=== PATIENT | male | born 1945 | race American Indian/Alaskan Native ===

== ENCOUNTER 2019-07-14 10:53 | Emergency (ER) | payer MEDICARE, OTHER ==
[~2019-07-14] VITALS: Ht 170.2 cm; Wt 158.8 kg
--- OUTSIDE RECORDS SUMMARY | ~2019-07-14 | XMS | Encounter Summary ---
Demographics + + + | Address | [address] | | | [place] [address] | + + + | Home Phone | | + + + | Preferred Language | Unknown | + + + | Marital Status | | + + + | Sabianist Affiliation | 1041 | + + + | Race | Unknown | + + + | Ethnic Group | Unknown | + + + Author + + + | Author | [facility] | | | and [place] | + + + | Organization | [facility] | | | and [place] | + + + | Address | Unknown | + + + | Phone | Unavailable | + + + Support + + + + + | Name | Relationship | Address | Phone | + + + + + | Lula Kerr | ECON | [address] | | | | | [place] | | | | | [address] | | + + + + + Care Team Providers + +------+ + | Care Photography Sales Associate Name | Role | Phone | + +------+ + | Gregory Drummond MD | PCP | | + +------+ + Encounter Details +--------+ + + + + | Date | Type | Department | Care Team | Description | +--------+ + + + + | 01/17/ | Abstract | [facility] | Provider, | Arteriosclerotic | | 2019 | | SURGERY [address] | [address] | cardiovascular | | | | [place], [place] | [address] | disease; Dialysis | | | | [address] | [place] [address] | patient (HCC); | | | | [phone] | | Pulmonary | | | | | | hypertension (HCC); | | | | | | Sleep apnea, | | | | | | unspecified type; | | | | | | Left arm pain; | | | | | | Hyperlipidemia, | | | | | | unspecified | | | | | | hyperlipidemia type; | | | | | | Venous | | | | | | insufficiency | +--------+ + + + + Social History + + + +--------+ + | Tobacco Use | Types | Packs/Day | Years | Date | | | | | Used | | + + + +--------+ + | Former Smoker | Cigarettes | 1 | 30 | Quit: 07/25/2001 | + + + +--------+ + + +------+---+---+ | Smokeless Tobacco: | Chew | | | | Current User | | | | + +------+---+---+ + + | Comments: every once in a while | + + + + +---------+ + | Alcohol Use | Drinks/Week | oz/Week | Comments | + + +---------+ + | Yes | | | 1-2 beers in the | | | | | summer | + + +---------+ + + + + | Sex Assigned at | Date Recorded | | | | + + + | Not on file | | + + + + + + + | Job Start Date | Occupation | Industry | + + + + | Not on file | Not on file | Not on file | + + + + + + + + | Travel History | Travel Start | Travel End | + + + + + + | No recent travel history available. | + + documented as of this encounter Progress Notes Sue Bowers, Field Service Technician Poultry - 08/10/2018 2:17 PM PSTCT Abdomen without on 2017 at [facility] Impressions: 1. Hepatomegaly. 2. Cholelithiasis. 3. Ascites and extensive subcutaneous edema. 4. Right adrenal nodule which is slightly smaller than previously. 5. Renal atrophy. 6. Atherosclerosis. 7. Cardiomegaly. 8. Fat containing midline abdominal hernia. Electronically signed by Mohsen Guerra documented in this encounter Plan of Treatment +--------+ + + + + | Date | Type | Specialty | Care Team | Description | +--------+ + + + + | 07/16/ | Off-Site | Nephrology | Maty Tian | | | 2018 | Visit | | DO Rolan [address] [place] [address] | | | | | | [address] | | | | | | [place] | | | | | | [phone] | | | | | | | | +--------+ + + + + | 09/25/ | Office | Cardiology | Sheldon Spence | | | 2019 | Visit | | [address] | | | | | | [facility] | | | | | | [place] | | | | | | [phone] | | | | | | | | +--------+ + + + + | 09/25/ | Procedure | Cardiology | | | | 2019 | visit | | | | +--------+ + + + + | 11/28/ | Office | Cardiology | Natalie Luo DO | | | 2019 | Visit | | [address] | | | | | | [place], [place] | | | | | | [address] | | | | | | | | +--------+ + + + + documented as of this encounter Visit Diagnoses + + | Diagnosis | + + | Arteriosclerotic cardiovascular disease Unspecified cardiovascular disease | + + | Dialysis patient (HCC) Renal dialysis status | + + | Pulmonary hypertension (HCC) Other chronic pulmonary heart diseases | + + | Sleep apnea, unspecified type | + + | Left arm pain Pain in limb | + + | Hyperlipidemia, unspecified hyperlipidemia type | + + | Venous insufficiency Unspecified venous (peripheral) insufficiency | + + documented in this encounter"
--- OUTSIDE RECORDS SUMMARY | ~2019-07-14 | XMS | Encounter Summary ---
Demographics + + + | Address | [address] | | | [place] [address] | + + + | Home Phone | | + + + | Preferred Language | Unknown | + + + | Marital Status | | + + + | Alevism Affiliation | 1041 | + + + | Race | Unknown | + + + | Ethnic Group | Unknown | + + + Author + + + | Author | [facility] | | | and [place] | + + + | Organization | [facility] | | | and [place] | + + + | Address | Unknown | + + + | Phone | Unavailable | + + + Support + + + + + | Name | Relationship | Address | Phone | + + + + + | Lula Kerr | ECON | [address] | | | | | [place] | | | | | [address] | | + + + + + Care Team Providers + +------+ + | Care Sheet Metal Journeyman Name | Role | Phone | + +------+ + | Gregory Drummond MD | PCP | | + +------+ + Encounter Details +--------+ + + + + | Date | Type | Department | Care Team | Description | +--------+ + + + + | 07/09/ | Abstract | [facility] | Maty Tian | | | 2018 | | NEPHROLOGY [address] | M, DO [address] | | | | | [address] | [address] | | | | | [place], [place] | [place], [place] | | | | | [address] | [address] | | | | | [phone] | | | +--------+ + + + + Social History + + + +--------+ + | Tobacco Use | Types | Packs/Day | Years | Date | | | | | Used | | + + + +--------+ + | Former Smoker | Cigarettes | 1 | 30 | Quit: 08/26/2001 | + + + +--------+ + + +------+---+ + | Smokeless Tobacco: | Chew | | Quit: | | Former User | | | 07/13/20 | | | | | 18 | + +------+---+ + + + | Comments: every once in a while | + + + + +---------+ + | Alcohol Use | Drinks/Week | oz/Week | Comments | + + +---------+ + | Yes | | | Alcoholic | | | | | Drinks/day: 1-2 | | | | | beers in the summer, | | | | | socially. | + + +---------+ + + + [...] + + documented as of this encounter Plan of Treatment +--------+ + + + + | Date | Type | Specialty | Care Team | Description | +--------+ + + + + | 07/16/ | Off-Site | Nephrology | Maty Tian | | | 2018 | Visit | | DO [address] | | | | | | [address] | | | | | | [place] | | | | | | [address] | | | | | | | | +--------+ + + + + | 09/25/ | Office | Cardiology | Sheldon Spence | | | 2019 | Visit | | [address] | | | | | | [address] | | | | | | [place] | | | | | | [address] | | | | | | | | +--------+ + + + + | 09/25/ | Procedure | Cardiology | | | | 2019 | visit | | | | +--------+ + + + + | 11/28/ | Office | Cardiology | Natalie Luo DO | | | 2019 | Visit | | [address] | | | | | | [place] | | | | | | [address] | | | | | | | | +--------+ + + + + documented as of this encounter Visit Diagnoses Not on filedocumented in this encounter Additional Health Concerns + + + + | Infection | Noted Time | Resolved Time | + + + + | Methicillin-resistant Staphylococcus aureus | 10/30/2018 9:33 AM | | | | PDT | | + + + + documented as of this encounter"
--- OUTSIDE RECORDS SUMMARY | ~2019-07-14 | XMS | Encounter Summary ---
Demographics + + + | Address | [address] | | | [place] [address] | + + + | Home Phone | | + + + | Preferred Language | Unknown | + + + | Marital Status | | + + + | Pentecostal Affiliation | 1041 | + + + | Race | Unknown | + + + | Ethnic Group | Unknown | + + + Author + + + | Author | [facility] | | | and [place] | + + + | Organization | [facility] | | | and [place] | + + + | Address | Unknown | + + + | Phone | Unavailable | + + + Support + + + + + | Name | Relationship | Address | Phone | + + + + + | Lula Kerr | ECON | [address] | | | | | [place] | | | | | [address] | | + + + + + Care Team Providers + +------+ + | Care Photographic Printer Name | Role | Phone | + +------+ + | Gregory Drummond MD | PCP | | + +------+ + Reason for Visit Auth/Cert +--------+--------+ + + + + | Status | Reason | Specialty | Diagnoses / | Referred By | Referred To | | | | | Procedures | Contact | Contact | +--------+--------+ + + + + | | | | Diagnoses | | | | | | | Hypoxemia | | | | | | | Hyponatremia | | | | | | | Pneumonia | | | | | | | of right | | | | | | | lower lobe | | | | | | | due to | | | | | | | infectious | | | | | | | organism | | | | | | | (HCC) Acute | | | | | | | renal | | | | | | | failure with | | | | | | | acute | | | | | | | tubular | | | | | | | necrosis | | | | | | | superimposed | | | | | | | on chronic | | | | | | | kidney | | | | | | | disease, | | | | | | | unspecified | | | | | | | CKD stage | | | | | | | (HCC) | | | | | | | | | | +--------+--------+ + + + + Encounter Details +--------+ + + + + | Date | Type | Department | Care Team | Description | +--------+ + + + + | 07/03/ | Anesthesia | [facility] | Moe Ling | | | 2018 | Event | [facility] | Mynor DIETZ MD [address] | | | | | [address] | [address] [place] | | | | | [place], [place] | [place] [address] | | | | | [address] | | | | | | | | | | | | | Keith Holloway | | | | | | Emanuel, DO [address] | | | | | | [address] [place] | | | | | | [place] [address] | | | | | | | | | | | | | | +--------+ + + + + Anesthesia Record + + + + + | Procedure Name | Responsible | Anesthesia Start | Anesthesia Stop Time | | | Anesthesiologist | Time | | + + + + + | INSERTION SHUNT | Moe Ling | 07/03/18 1502 | 07/03/18 1626 | | HEMODIALYSIS W/ | MD MIRELA | | | | PERMACATH (Right | | | | | Chest) | | | | + + + + + +----+---+ + + | Da | T | Event | Comment | | te | i | | | | | m | | | | | e | | | +----+---+ + + | 12 | 1 | An Checkout | Pre-use anesthesia machine/equipment checkout. | | /1 | 4 | | | | 0/ | 4 | | | | 20 | 1 | | | | 18 | | | | +----+---+ + + | | 1 | | | | | 4 | | | | | 4 | | | | | 6 | | | +----+---+ + + | | 1 | An Start | Reassessment prior to anesthesia induction/procedure. | | | 5 | | | | | 0 | | | | | 2 | | | +----+---+ + + | | 1 | Antibiotic | | | | 5 | Given | | | | 0 | | | | | 3 | | | +----+---+ + + | | 1 | An Start | | | | 5 | Data | | | | 0 | | | | | 4 | | | +----+---+ + + | | 1 | Preoxygenat | | | | 5 | ed | | | | 0 | | | | | 7 | | | +----+---+ + + | | 1 | An | | | | 5 | Induction | | | | 0 | | | | | 8 | | | +----+---+ + + | | 1 | An | | | | 5 | Intubation | | | | 0 | | | | | 9 | | | +----+---+ + + | | 1 | [place] | | | | 5 | 43-degrees | | | | 3 | | | | | 2 | | | +----+---+ + + | | 1 | Pre-Procedu | | | | 5 | ral Timeout | | | | 4 | Completed | | | | 6 | | | +----+---+ + + | | 1 | First | | | | 5 | Inc/Proc St | | | | 4 | | | | | 8 | | | +----+---+ + + | | 1 | [place] off | | | | 6 | | | | | 1 | | | | | 5 | | | +----+---+ + + | | 1 | AN No | TOF 4/4 with sustained tetanus. | | | 6 | Residual | | | | 1 | NMB | | | | 5 | | | +----+---+ + + | | 1 | an stop | | | | 6 | data | | | | 2 | | | | | 0 | | | +----+---+ + + | | 1 | Extubated | | | | 6 | Awake | | | | 2 | | | | | 0 | | | +----+---+ + + | | 1 | An Stop | Patient handed off to recovery nurse. | | | 2 | | | | | 6 | | | +----+---+ + + +------+ | Meds | +------+ + + + | Name | Total | + + + | propofol (DIPRIVAN) injection | 140 mg | | (bolus) (20 mL) | | + + + | propofol | 190.68 mg | + + + | lidocaine 2% | 40 mg | + + + | ceFAZolin (ANCEF, KEFZOL) 100 | 2 g | | mg/mL IV syringe 2 g | | + + + | sodium chloride 0.9% (NS) | 100 mL | | infusion | | + + + + + | Name | + + | N2O Flow Rate (L/Min) | + + | O2 Flow Rate (L/Min) | + + | Insp O2 | + + | Exp SEV | + + | Air Flow Rate (L/Min) | + + + + | No blood administrations on file. | + + +--------+ + + + | Type | Details | Placement | Removal | +--------+ + + + | Pacema | 06/26/18; AICD; capturing | 06/26/18 0000 by | | | ker | | Felicita Sanchez RN | | +--------+ + + + | Hemodi | 07/03/18; 1601; Yes; | 07/03/18 1601 by | | | alysis | Chlorhexidine/Isopropyl Alcohol; | Hortensia Centeno RN | | | | Yes; All; OR; Observer; | | | | Orquidea | Rodrigo; Attending physician; New | | | | er | indication for central line | | | | | (e.g., hemodynamic monitoring, | | | | | fluid/medication administration, | | | | | etc.); internal jugular vein, | | | | | right; 23 cm, other (see | | | | | comments) (16 FR); other (see | | | | | comments) (Patient under general | | | | | anesthesia) | | | +--------+ + + + | Read | 09/16/14; 1030; Left:; eye; | 09/16/14 1030 by | 09/05/181925 by | | only - | 09/05/18; 1925 | Goldie Manley, | Lyn Villanueva RN | | | | RN | | | Incisi | | | | | on | | | | +--------+ + + + | Read | 10/14/14; 923; Right:; eye; | 10/14/14 09 by | 09/05/181925 by | | only - | 09/05/18; 1925 | Holly Worthy RN | Lyn Villanueva RN | | | | | | | Incisi | | | | | on | | | | +--------+ + + + | Urethr | 06/26/18; 1400; indicated for | 06/26/18 1400 by | 07/04/18 1552 by | | al | critically ill with need for | Felicita Sanchez RN | Luis Alfredo Pelaez RN | | Cathet | accurate I/O; All elements; All | | | | er | elements; All elements; 16; 10; | | | | | 07/04/18; 1552 | | | +--------+ + + + | Rash | 06/26/18; 1400; Left; lower; leg; | 06/26/18 1400 by | 07/08/18 1515 by | | | healing within expectations; | Felicita Sanchez RN | Shweta Gilmore RN | | | 07/08/18; 1515 | | | +--------+ + + + | PICC | 06/26/18; 1630; Red Hub; White | 06/26/18 1630 by | 07/08/18 1455 by | | Triple | Hub; Johnson Hub; Yes; | Brandi Centeno RN | Shweta Gilmore RN | | Lumen | Chlorhexidine/Isopropyl Alcohol; | | | | | Yes; Yes; All; Patient room; | | | | | Glass Blower Helper; Arielle Centeno; Registered | | | | | nurse; Yes; New indication for | | | | | central line (e.g., hemodynamic | | | | | monitoring, fluid/medication | | | | | administration, etc.); brachial, | | | | | right; pressure injectable | | | | | catheter, lot number (specify) | | | | | (RxRevu [id number]); 5 Fr, length | | | | | (specify) (Trimmed to 47 cm); 0; | | | | | intradermal injection, tolerated | | | | | well; ultrasound visualization | | | | | with modified seldinger technique | | | | | at bedside; placement verified | | | | | by x-ray; no longer indicated, | | | | | catheter/device intact; healing | | | | | within expectations; 07/08/18; | | | | | 1455 | | | +--------+ + + + | Wound | 07/02/18; 0600; Bilateral; | 07/02/18 0600 by | 07/08/18 1515 by | | | posterior; gluteal; abrasion; | Ric Farfan RN | Shweta Gilmore RN | | | bleeding.; 07/08/18; 1515 | | | +--------+ + + + | Airway | Placement Date: 07/03/18; | 07/03/18 1509 by | 07/03/18 1620 by | | | Placement Time: 1509 (created via | Moe Ling | Moe Ling | | | procedure documentation); Mask | MD MIRELA | MD MIRELA | | | Ventilation: EZ; Attempts: 1; | | | | | Airway Type: laryngeal mask; | | | | | Size: 5; Trauma: none; Placement | | | | | Check: exhaled CO2 detection | | | | | device, bilateral chest rise, | | | | | breath sounds equal bilaterally; | | | | | Removal Date: 07/03/18; Removal | | | | | Time: 1620 | | | +--------+ + + + | Read | 07/03/18; 1556; Right; neck; | 07/03/18 1556 by | 07/08/18 1515 by | | only - | healing within expectations; | Hortensia Centeno RN | Shweta Gilmore RN | | | 07/08/18; 1515 | | | | Incisi | | | | | on | | | | +--------+ + + + documented in this encounter Social History + + + +--------+ + [...] | Visit | | DO [address] | | | | | | [address] | | | | | | [place] | | | | | | [address] | | | | | | | | +--------+ + + + + | 09/25/ | Office | Cardiology | Sheldon Spence | | | 2019 | Visit | | [address] | | | | | | [address] | | | | | | [place] | | | | | | [address] | | | | | | | [...] [place] | | | | | | [address] | | | | | | | | +--------+ + + + + documented as of this encounter Procedures + +--------+ + + + | Procedure Name | Priori | Date/Time | Associated Diagnosis | Comments | | | ty | | | | + +--------+ + + + | ANE AIRWAY NOTE | Routin | 07/03/2018 | | Results for this | | | e | 3:26 PM | | procedure are in the | | | | PST | | results section. | + +--------+ + + + documented in this encounter Results Anesthesia Airway Note (07/03/2018 3:26 PM PST) + + + | Narrative | Performed At | + + + | Moe Ling II, MD 07/03/2018 15:26 Anesthesia Airway | | | Placement 07/03/2018 15:09 Preprocedure check: patient | | | identified, oxygen, airway assessed, patient reassessment prior to | | | induction, airway equipment checked and suction Rapid Sequence | | | Induction: no Mask ventilation: easy Attempts: 1 Airway type: | | | laryngeal mask Size: 5 Cuffed: cuffed Route, reference point: | | | center of mouth Tube secured with: adhesive tape Trauma: none Tube | | | placement verification: bilateral chest rise, equal bilateral breath | | | sounds and carbon dioxide detection Performing provider: GRACIE | | | MOE LOWE II Electronically Signed by: Moe Ling II, | | | MD Moreno date/time: | | | 07/03/2018 15:26 | | + + + + + | Procedure Note | + + | Moe Ling II, MD - 07/03/2018 3:26 PM PST Anesthesia Airway | | [id number]/10/2018 15:09Preprocedure check: patient identified, oxygen, airway | | assessed, patient reassessment prior to induction, airway equipment checked and | | suctionRapid Sequence Induction: noMask ventilation: easyAttempts: 1Airway type: | | laryngeal maskSize: 5Cuffed: cuffedRoute, reference point: center of mouthTube secured | | with: adhesive tapeTrauma: noneTube placement verification: bilateral chest rise, equal | | bilateral breath sounds and carbon dioxide detectionPerforming provider: MOE LING | | MYNOR DIETZElectronically Signed by: Moe Ling II, MD | | ESig date/time: 07/03/2018 15:26 | |Cuffed: cuffed | |Route, reference point: center of mouth | |Tube secured with: adhesive tape | |Trauma: none | |Tube placement verification: bilateral chest rise, equal bilateral breath sounds and carbon dioxide detection | |Performing provider: MOE LING II | | | | | |Electronically Signed by: Moe Ling II, MD ESirenetta date/time : 07/03/2018 15:26 | | | + + documented in this encounter Visit Diagnoses Not on filedocumented in this encounter Administered Medications + +--------+ +------+------+------+ | Medication Order | MAR | Action | Dose | Rate | Site | | | Action | Date | | | | + +--------+ +------+------+------+ | ceFAZolin (ANCEF, KEFZOL) 100 | Given | 07/03/20 | 2 g | | | | mg/mL IV syringe 2 g 2 g, | | 18 3:24 | | | | | Intravenous, Administer over 30 | | PM PST | | | | | Minutes, Prior to Incision, | | | | | | | Starting 07/03/18 at 0000, | | | | | | | For 1 dose, Indications: Surgical | | | | | | | Prophylaxis | | | | | | + +--------+ +------+------+------+ +---+---+ | | | +---+---+ + +-------+ +-------+---+---+ | lidocaine (PF) 2% injection | Given | 12/10/20 | 40 mg | | | | Intravenous, PRN, Starting Mon | | 18 3:02 | | | | | 18 at 1502, Anesthesia | | PM PST | | | | | Intra-op | | | | | | + +-------+ +-------+---+---+ +---+---+ | | | +---+---+ + +-------+ +-------+---+---+ | propofol (DIPRIVAN) injection | Given | 07/03/20 | 20 mg | | | | Intravenous, PRN, Starting Mon | | 18 3:08 | | | | | 07/03/18 at 1502, Anesthesia | | PM PST | | | | | Intra-op | | | | | | + +-------+ +-------+---+---+ +-------+ +-------+---+---+ | Given | 07/03/20 | 20 mg | | | | | 18 3:07 | | | | | | PM PST | | | | +-------+ +-------+---+---+ | Given | 07/03/20 | 20 mg | | | | | 18 3:06 | | | | | | PM PST | | | | +-------+ +-------+---+---+ +---+---+ | | | +---+---+ + +---------+ + +-------+---+ | propofol (DIPRIVAN) injection | New Bag | 07/03/20 | 20 | 13.6 | | | Intravenous, CONTINUOUS PRN, | | 18 3:02 | mcg/kg/m | mL/hr | | | Starting 07/03/18 at 1502, | | PM PST | in | | | | Anesthesia Intra-op | | | | | | + +---------+ + +-------+---+ +---+---+ | | | +---+---+ documented in this encounter"
--- OUTSIDE RECORDS SUMMARY | ~2019-07-14 | XMS | Encounter Summary ---
Demographics + + + | Address | [address] | | | [place] [address] | + + + | Home Phone | | + + + | Preferred Language | Unknown | + + + | Marital Status | | + + + | Roman Catholic Affiliation | 1041 | + + + | Race | Unknown | + + + | Ethnic Group | Unknown | + + + Author + + + | Author | [facility] | | | and [place] | + + + | Organization | [facility] | | | and [place] | + + + | Address | Unknown | + + + | Phone | Unavailable | + + + Support + + + + + | Name | Relationship | Address | Phone | + + + + + | Lula Kerr | ECON | [address] | | | | | [place] | | | | | [address] | | + + + + + Care Team Providers + +------+ + | Care Pressure Supervisor Name | Role | Phone | + +------+ + | Gregory Drummond MD | PCP | | + +------+ + Reason for Visit Evaluate & Treat + +--------+ + + + + | Status | Reason | Specialty | Diagnoses / | Referred By | Referred To | | | | | Procedures | Contact | Contact | + +--------+ + + + + | Authorized | | Nephrology | Diagnoses | Gregory Drummond | [facility] | | | | | ESRD (end | MD [address] | Nephrology | | | | | stage renal | [address] | [address] | | | | | disease) on | [place], | [address] | | | | | dialysis | [place] | [place], | | | | | ([facility]) | [address] | [place] [address] | | | | | Procedures | Phone: | Phone: | | | | | [place] ESRD | [phone] | [phone] | | | | | RELATED SVC | Fax: | Fax: | | | | | MONTHLY | [phone] | [phone] | | | | | 20&/> YR OLD | | | | | | | 4/> VISITS | | | + +--------+ + + + + Encounter Details +--------+ + + + + | Date | Type | Department | Care Team | Description | +--------+ + + + + | 05/21/ | Off-Site | [facility] | Maty Tian | ESRD (end stage | | 2019 | Visit | NEPHROLOGY [address] | M, DO [address] | renal disease) on | | | | [address] | [place], [address] | dialysis (HCC) | | | | [place], [place] | [place], [place] | (Primary Dx) | | | | [address] | [address] | | | | | [phone] | | | +--------+ + + + [...] + + documented as of this encounter Last Filed Vital Signs + + + + + | Vital Sign | Reading | Time Taken | Comments | + + + + + | Blood Pressure | 122/77 | 05/26/2019 3:38 PM | | | | | PDT | | + + + + + | Pulse | - | - | | + + + + + | Temperature | 36.7 C (98.1 F) | 05/26/2019 3:38 PM | | | | | PDT | | + + + + + | Respiratory Rate | - | - | | + + + + + | Oxygen Saturation | - | - | | + + + + + | Inhaled Oxygen | - | - | | | Concentration | | | | + + + + + | Weight | - | - | | + + + + + | Height | - | - | | + + + + + | Body Mass Index | - | - | | + + + + + documented in this encounter Progress Notes Maty Tian DO - 05/21/2019 10:30 AM PDT Subjective: DIALYSIS NOTE Patient ID: David Kerr is a 73 y.o. male. 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 He is seen on the MWF shift. He also has a history of long-standing type II DM, controlled with oral agents, ischemic cardiomyopathy, with last EF =30%, global hypokinesis, on last e cho, 11/08/2018, chronic A. fib, s/p pacemaker placement 02/20/2007, with conversion to bi-V p acemaker/ICD, 12/19/2013?, CAD, s/p CABG x4 vessels 2001, per old records, long-standing hy perlipidemia, obesity and possible EVITA. He is having new sputum production with white sputum, no fever chills, or dyspnea.he does a ppear to have large intradialytic weight gains.he has had low blood pressure on dialysis com patible with low CO state, autonomic insufficiency, and this has been treated with oral mi dodrine. MEDS: Outpatient Medications Marked as Taking for the 05/21/19 encounter (Off-Site Visit) with Alyce Tian, DO Medication Sig Dispense Refill allopurinol (ZYLOPRIM) 300 mg tablet Take 150 mg by mouth Daily. aspirin 81 MG tablet Take 81 mg by mouth. Three times a week atorvaSTATin (LIPITOR) 40 mg tablet Take 40 mg by mouth nightly. b complex-vitamin c-folic acid (NEPHRO-PAOLO) tablet Take 1 tablet by mouth Daily. 90 ta blet 3 celecoxib (CELEBREX) 200 mg capsule Take 200 mg by mouth daily. doxercalciferol (HECTOROL) 2 mcg/mL injection Inject 1.5 mcg into the vein Three times a week. fexofenadine (HECTOR) 180 mg tablet Take 180 mg by mouth daily. furosemide (LASIX) 80 mg tablet Take 80 mg by mouth 2 (two) times daily. gabapentin (NEURONTIN) 100 mg capsule Take 1 capsule by mouth Twice daily as needed (i nsomnia / RLS). 90 capsule glimepiride (AMARYL) 2 MG tablet Take 1 tablet by mouth every morning (before breakfast ). 30 tablet 0 midodrine (PROAMATINE) 10 MG tablet Take 1 tablet by mouth Three times a week. On dialy sis days 0 omeprazole (PRILOSEC) 40 MG capsule Take 40 mg by mouth every morning (before breakfast ). Allergies Allergen Reactions Morphine Other (See Comments) Became really mean Changes personality to "mean" "get mean" Objective: BP 122/77 | Temp 36.7 C (98.1 F) EDW 102 kg Physical Exam Heart: irregularly, irregular with no S3, S4, murmur or rub. Lungs: CTA with prolonged expiratory phase, no rales or wheezes. Abdomen: soft, obese, nontender, NABS. Extremities: 1-2+ edema, left >right, no clubbing, or cyanosis. LAB: BUN 99, Cr 9.5, K+ 4.3, HCO3 18, albumin 4.0, Ca++ 8.7, phosphorus 7.8, last PTH 358, HbA1c not listed, Hb 14.9, T sat 29%, ferritin 360, spKT/V = 1.62. Assessment: 1. ESRD--he appears well dialyzed on the current Rx by the most recent spKT/V. However hi s cough productive white sputum may signal component venous congestion? He may need to be p robed for new dry weight? 2. Hypertension--this is been complicated by dialysis induced hypotension, probably relate d to autonomic insufficiency from diabetic polyneuropathy? He appears to be responding to m idodrine. 3. CKD/MBD-- 4. anemia secondary to CKD--phosphorus control is above target. Reviewed with him feature s of a <1000 mg phosphorus restriction. PTH is within target. 5. ischemic cardiomyopathy--compensated. 6. Nutrition --His appetite and serum albumin are excellent 7. CAD, s/p CABG x4 vessels, 2001--on ASA, statin. 8. Chronic A. fib--rate control appears stable. 9. Hyperlipidemia --on statin therapy. 10. Transplantation--he may not be an optimal candidate due to multiple comorbid condition s? 11. Type II DM--need to recheck HbA1c. Plan: 1. I reviewed with David his monthly lab. 2. Apparently, Dr. Drummond recently did a 2 view CXR at the [facility]. I had the im age transferred to the image library at [facility]. It does show positive cardi omegaly,, and some interstitial, pulmonary venous congestion especially at the lower lobes. He may need a decrease in his dry weight by 1 kg to see if this improves the cough and sput um production.therefore, will decrease his dry weight to 101 kg. 3. I cautioned David that he needs to tighten up on his daily phosphorus restriction, e. g. <1000 mg/day. 4. Dr. Alcantar will recheck him in 2 weeks. Electronically signed by Maty Tian DO. 05/26/19 15:39 CC: [place] Sri Osorio MD tMaxine morgan DO - 05/21/2019 10:30 AM PDT Electronically signed by Maty Tian DO at 5:00 PM PDTdocumented in this encounter Plan of Treatment +--------+ + + + + | Date | Type | Specialty | Care Team | Description | +--------+ + + + + | 07/16/ | Off-Site | Nephrology | Maty Tian | | | 2018 | Visit | | DO [address] [address] [place] [address] | | | | | | [address] | | | | | | [place] | | | | | | [address] | | | | | | | | +--------+ + + + + | 09/25/ | Office | Cardiology | Sheldon Spence | | | 2019 | Visit | | MD [address] | | | | | | [facility] | | | | | | [place] | | | | | | [address] | | | | | | | | +--------+ + + + + | 09/25/ | Procedure | Cardiology | | | | 2019 | visit | | | | +--------+ + + + + | 11/28/ | Office | Cardiology | Natalie Luo DO | | | 2019 | Visit | | [address] | | | | | | [place] | | | | | | [address] | | | | | | | | +--------+ + + + + documented as of this encounter Visit Diagnoses + + | Diagnosis | + + | ESRD (end stage renal disease) on dialysis (HCC) - Primary End stage renal disease | + + documented in this encounter Additional Health Concerns + + + + | Infection | Noted Time | Resolved Time | + + + + | Methicillin-resistant Staphylococcus aureus | 10/30/2018 9:33 AM | | | | PDT | | + + + + documented as of this encounter
--- OUTSIDE RECORDS SUMMARY | ~2019-07-14 | XMS | Clinical Summary ---
Demographics + + + | Address | [address] | | | [place] [address] | + + + | Home Phone | | + + + | Preferred Language | Unknown | + + + | Marital Status | | + + + | Restoration Affiliation | [id number] | + + + | Race | Unknown | + + + | Ethnic Group | Unknown | + + + Author + + + | Author | [facility] | | | and [place] | + + + | Organization | [facility] | | | and [place] | + + + | Address | Unknown | + + + | Phone | Unavailable | + + + Support + + + + + | Name | Relationship | Address | Phone | + + + + + | Lula Kerr | ECON | [address] | | | | | [place] | | | | | [phone] | | + + + + + Care Team Providers + +------+ + | Care Mental Tester Name | Role | Phone | + +------+ + | Gregory Drummond MD | PCP | | + +------+ + Allergies + + + + + + | Active Allergy | Reactions | Severity | Noted | Comments | | | | | Date | | + + + + + + | Morphine | Other (See Comments) | Medium | 09/13/19 | Became really mean | | | | | 15 | Changes | | | | | | personality to | | | | | | "mean" "get mean" | + + + + + + Medications + + + +---------+------+------+-------+ | Medication | Sig | Dispensed | Refills | Star | End | Statu | | | | | | t | Date | s | | | | | | Date | | | + + + +---------+------+------+-------+ | aspirin 81 MG | Take 81 mg by mouth. | | 0 | | | Activ | | tablet | Three times a week | | | | | e | + + + +---------+------+------+-------+ | atorvaSTATin | Take 40 mg by mouth | | 0 | | | Activ | | (LIPITOR) 40 mg | nightly. | | | | | e | | tablet | | | | | | | + + + +---------+------+------+-------+ | allopurinol | Take 150 mg by mouth | | 0 | | | Activ | | (ZYLOPRIM) 300 mg | Daily. | | | | | e | | tablet | | | | | | | + + + +---------+------+------+-------+ | omeprazole | Take 40 mg by mouth | | 0 | | | Activ | | (PRILOSEC) 40 MG | every morning | | | | | e | | capsule | (before breakfast). | | | | | | + + + +---------+------+------+-------+ | glimepiride | Take 1 tablet by | 30 | 0 | 12/1 | | Activ | | (AMARYL) 2 MG tablet | mouth every morning | tablet | | 5/20 | | e | | | (before breakfast). | | | 18 | | | + + + +---------+------+------+-------+ | b complex-vitamin | Take 1 tablet by | 90 | 3 | 02/2 | | Activ | | c-folic acid | mouth Daily. | tablet | | /20 | | e | | (NEPHRO-PAOLO) tablet | | | | 19 | | | + + + +---------+------+------+-------+ | gabapentin | Take 1 capsule by | 90 | 0 | 04/2 | | Activ | | (NEURONTIN) 100 mg | mouth Twice daily | capsule | | 20 | | e | | capsule | as needed (insomnia | | | 19 | | | | | / RLS). | | | | | | + + + +---------+------+------+-------+ | celecoxib | Take 200 mg by mouth | | 0 | | | Activ | | (CELEBREX) 200 mg | daily. | | | | | e | | capsule | | | | | | | + + + +---------+------+------+-------+ | fexofenadine | Take 180 mg by mouth | | 0 | | | Activ | | (HECTOR) 180 mg | daily. | | | | | e | | tablet | | | | | | | + + + +---------+------+------+-------+ | furosemide (LASIX) | Take 80 mg by mouth | | 0 | | | Activ | | 80 mg tablet | 2 (two) times daily. | | | | | e | + + + +---------+------+------+-------+ | midodrine | Take 1 tablet by | | 0 | 09/1 | | Activ | | (PROAMATINE) 10 MG | mouth Three times a | | | 3/20 | | e | | tablet | week. On dialysis | | | 19 | | | | | days | | | | | | + + + +---------+------+------+-------+ | doxercalciferol | Inject 1.5 mcg into | | 0 | | | Activ | | (HECTOROL) 2 mcg/mL | the vein Three times | | | | | e | | injection | a week. | | | | | | + + + +---------+------+------+-------+ Active Problems + + + | Problem | Noted Date | + + + | Mass of spine | 07/06/2019 | + + + | Dialysis AV fistula malfunction | 12/13/2018 | + + + | Clinical sepsis | 10/26/2018 | + + + | Acute respiratory failure with hypoxia | 10/26/2018 | + + + | Coronary artery disease involving [place] coronary artery of | 10/19/2018 | | [place] heart without angina pectoris | | + + + | Chews tobacco | 09/04/2018 | + + + | Anemia due to chronic kidney disease | 07/14/2018 | + + + | Secondary hyperparathyroidism of renal origin | 07/14/2018 | + + + | Pneumonia | 06/26/2018 | + + + | ESRD (end stage renal disease) on dialysis | 06/26/2018 | + + + | Left bundle branch block (LBBB) | 11/18/2017 | + + + | Cardiomyopathy | 02/21/2017 | + + + + + | Overview: Last Assessment & Plan: A: Ischemic cardiomyopathy. | | NYHA Class III. P: 1. Echo before his next visit with me. 2. | | Continue current meds. If persistent hypertension, will try to | | increase lisinopril. Overview: Last Assessment & Plan: A: | | Ischemic cardiomyopathy. NYHA Class III. P: 1. Echo before his | | next visit with me. 2. Continue current meds. If persistent | | hypertension, will try to increase lisinopril. Overview: Last | | Assessment & Plan: A: Ischemic cardiomyopathy. NYHA Class III. P: | | 1. Echo before his next visit with me. 2. Continue current meds. | | If persistent hypertension, will try to increase lisinopril. | | | |P: | |1. Echo before his next visit with me. | |2. Continue current meds. If persistent hypertension, will try to increase lisinopril. | | | |Overview: | |Last Assessment & Plan: | |A: Ischemic cardiomyopathy. NYHA Class III. | | | |P: | |1. Echo before his next visit with me. | |2. Continue current meds. If persistent hypertension, will try to increase lisinopril. | + + + + + | Gastrointestinal hemorrhage associated with gastric ulcer | 08/20/2016 | + + + | Persistent atrial fibrillation | 08/20/2016 | + + + + + | Overview: Last Assessment & Plan: A: Persistent afib. | | [id number] Risk Score: 5 - 7.2% Estimated Stroke Risk Per | | YearHAS-BLED Score for Major Bleeding Risk: 2 - Risk: Study One - | | 4.1%; Study Two - 1.88 bleeds per 100 patient yearsP: Unable to | | tolerate anticoagulation. ASA only. Overview: Last Assessment & | | Plan: A: Persistent afib. [id number] Risk Score: 5 - 7.2% | | Estimated Stroke Risk Per YearHAS-BLED Score for Major Bleeding | | Risk: 2 - Risk: Study One - 4.1%; Study Two - 1.88 bleeds per 100 | | patient yearsP: Unable to tolerate anticoagulation. ASA only. | |Last Assessment & Plan: | |A: Persistent afib. | | | |[id number] Risk Score: 5 - 7.2% Estimated Stroke Risk Per Year | |HAS-BLED Score for Major Bleeding Risk: 2 - Risk: Study One - 4.1%; Study Two - 1.88 bleeds per 100 patient years | | | |P: Unable to tolerate anticoagulation. ASA only. | + + + + + | Class 3 obesity due to excess calories with serious comorbidity | 09/16/2014 | | and body mass index (BMI) of 40.0 to 44.9 in adult | | + + + + + | Overview: Overview: | | Last Assessment & Plan: | | A: BMI is 41. | | | | P: I encouraged pt to exercise and lose weight. | + + + + + | DM (diabetes mellitus), type 2 | 09/16/2014 | + + + | VT (ventricular tachycardia) | 05/31/2014 | + + + + + | Overview: Overview: Last Assessment & Plan: A: BP a bit high. | | P: Given CKD, hold off increasing lisinopril unless persistently | | hypertensive. | | | |P: Given CKD, hold off increasing lisinopril unless persistently hypertensive. | + + + + + | AICD (automatic cardioverter/defibrillator) present | 04/03/2010 | + + + + + | Overview: A: Biventricular ICD is functioning appropriately. | | P: Echo in one year with ICD follow up. | | | | Overview: | | Overview: | | A: Biventricular ICD is functioning appropriately. | | P: Echo in one year with ICD follow up. | + + + + + | Hx of CABG | 12/19/2009 | + + + + + | Overview: Last Assessment & Plan: | | Assessment: No anginal symptoms. | | | | Plan: I encouraged the patient to continue to exercise. | + + + +---+ | Arteriosclerotic cardiovascular disease | | + +---+ | Dialysis patient | | + +---+ + + | Overview: Dialysis M-W- | | | | Overview: | | Overview: | | Dialysis M-W-F | + + + +---+ | Pulmonary hypertension, Severe | | + +---+ + + | Overview: Severe pulmonary hypertension with a peak systole | | pressure of 80-85 mmHg. EF% 35-40%. Patient has stopped CPAP | | which may contribute to severity.Overview: Overview: Severe | | pulmonary hypertension with a peak systole pressure of 80-85 | | mmHg. EF% 35-40%. Patient has stopped CPAP which may contribute | | to severity. | + + + +---+ | Obstructive sleep apnea on CPAP | | + +---+ + + | Overview: BiPAP, Patient states he does not use device (D/C | | 2014)Overview: Overview: BiPAP, Patient states he does not use | | device (D/C 2014) | |Overview: | |BiPAP, Patient states he does not use device (D/C 2014) | + + + +---+ | Gout | | + +---+ | Hyperlipidemia | | + +---+ | Venous insufficiency | | + +---+ Resolved Problems + + + + | Problem | Noted | Resolved | | | Date | Date | + + + + | Acute metabolic encephalopathy | 06/28/20 | | | | 18 | 9 | + + + + | Acute on chronic systolic heart failure | 06/28/20 | | | | 18 | 9 | + + + + | Severe sepsis with septic shock | 06/26/20 | | | | 18 | 9 | + + + + | Cellulitis of left lower extremity | 06/26/20 | | | | 18 | 9 | + + + + | Chest pain with high risk for cardiac etiology | 09/16/19 | | | | 15 | 9 | + + + + | Left arm pain | | | | | | 9 | + + + + Encounters +--------+ + + + + | Date | Type | Specialty | Care Team | Description | +--------+ + + + + | 07/10/ | Telephone | Neurosurgery | Paul Nielson | Lab Order | | 2018 | | | [facility] [place] | (collection location | | | | | | clarification) | +--------+ + + + + | 07/09/ | Abstract | Nephrology | Maty Tian | | | 2019 | | | M, DO | | +--------+ + + + + | 07/06/ | Hospital | Radiology | Paul Nielson | Paraspinal mass; | | 2018 | Encounter | | [facility] [place] | Fracture of vertebra | | | | | | due to | | | | | | osteoporosis, | | | | | | initial encounter | | | | | | ([facility]) | +--------+ + + + + | 07/06/ | Office | Neurosurgery | Paul Nielson | Mass of spine | | 2018 | Visit | | [facility] [place] | (Primary Dx) | +--------+ + + + + | 07/05/ | Abstract | Neurosurgery | Provider, | | | 2018 | | | [facility] [place] | | +--------+ + + + + | 07/05/ | Orders Only | Neurosurgery | Paul Nielson | ESRD (end stage | | 2018 | | | [facility] [place] | renal disease) on | | | | | | dialysis ([facility]) | | | | | | (Primary Dx); Type 2 | | | | | | diabetes mellitus | | | | | | with chronic kidney | | | | | | disease on chronic | | | | | | dialysis, without | | | | | | long-term current | | | | | | use of insulin | | | | | | ([facility]); Persistent | | | | | | atrial fibrillation; | | | | | | Arteriosclerotic | | | | | | cardiovascular | | | | | | disease | +--------+ + + + + | 07/05/ | Orders Only | Nephrology | Maty Tian | Paraspinal mass | | 2019 | | | M, DO | (Primary Dx) | +--------+ + + + + | 07/04/ | Orders Only | Neurosurgery | Paul Nielson | Paraspinal mass | | 2018 | | | [facility] [place] | (Primary Dx); | | | | | | Fracture of vertebra | | | | | | due to | | | | | | osteoporosis, | | | | | | initial encounter | | | | | | (HCC) | +--------+ + + + + | 07/03/ | Imaging | Radiology | Provider, | | | 2018 | Exam | | [facility] [place] | | +--------+ + + + + | 07/02/ | E-Visit | Nephrology | Maty Tian | | | 2018 | | | M, DO | | +--------+ + + + + | 06/26/ | Imaging | Radiology | Provider, | | | 2018 | Exam | | [facility] [place] | | +--------+ + + + + | 06/26/ | Imaging | Radiology | Provider, | | | 2018 | Exam | | [facility] [place] | | +--------+ + + + + | 06/25/ | Procedure | Cardiology | | VT (ventricular | | 2018 | visit | | | tachycardia) (HCC) | | | | | | (Primary Dx); AICD | | | | | | (automatic | | | | | | cardioverter/defibri | | | | | | llator) present ; | | | | | | Ischemic | | | | | | cardiomyopathy; Left | | | | | | bundle branch block | | | | | | (LBBB); Persistent | | | | | | atrial fibrillation | +--------+ + + + + | 05/21/ | Off-Site | Nephrology | Mayt Tian | ESRD (end stage | | 2019 | Visit | | DO [place] | renal disease) on | | | | | | dialysis ([facility]) | | | | | | (Primary Dx) | +--------+ + + + + | 05/17/ | Office | Cardiology | Natalie Luo DO | Ischemic | | 2018 | Visit | | | cardiomyopathy | | | | | | (Primary Dx); VT | | | | | | (ventricular | | | | | | tachycardia) ([facility]); | | | | | | Left bundle branch | | | | | | block (LBBB); | | | | | | Persistent atrial | | | | | | fibrillation; | | | | | | Arteriosclerotic | | | | | | cardiovascular | | | | | | disease; Pulmonary | | | | | | hypertension, | | | | | | Severe; ESRD (end | | | | | | stage renal disease) | | | | | | on dialysis ([facility]); | | | | | | Hx of CABG; AICD | | | | | | (automatic | | | | | | cardioverter/defibri | | | | | | llator) present | +--------+ + + + + from Last 3 Months Immunizations + + + + | Name | Administration Dates | Next Due | + + + + | INFLUENZA PF | 04/11/2017 | | | QUAD(PED/ADOL/ADULT) | | | | ,PSKT or VIAL | | | + + + + | INFLUENZA, | 05/14/2008, 05/12/2007, 05/27/2005, | | | UNSPECIFIED | 05/21/2002, 06/01/2001, 05/10/1996, | | | FORMULATION | 05/16/1992, 05/18/1991 | | + + + + | PNEUMOCOCCAL | 07/08/2014 | | | CONJUGATE 13-VALENT | | | | (PCV13) | | | + + + + | PNEUMOCOCCAL | 09/17/2004, 05/19/1995 | | | POLYSACCHARIDE | | | | 23-VALENT (PPSV23) | | | + + + + | TD PF (5 LF TETANUS) | 05/10/1996 | | | (ADOL/ADULT) | | | + + + + | TD, UNSPECIFIED | 05/10/1996 | | | FORMULATION | | | + + + + | TDAP, (ADOL/ADULT) | 05/22/2006 | | + + + + Family History + + +------+ + | Medical History | Relation | Name | Comments | + + +------+ + | No known problems | Brother | | | + + +------+ + | No known problems | Father | | | + + +------+ + | No known problems | Maternal | | | | | Grandfath | | | | | er | | | + + +------+ + | No known problems | Maternal | | | | | Grandmoth | | | | | er | | | + + +------+ + | No known problems | Mother | | | + + +------+ + | No known problems | Paternal | | | | | Grandfath | | | | | er | | | + + +------+ + | No known problems | Paternal | | | | | Grandmoth | | | | | er | | | + + +------+ + | No known problems | Sister | | | + + +------+ + | Anemia | Neg Hx | | | + + +------+ + | Arrhythmia | Neg Hx | | | + + +------+ + | Asthma | Neg Hx | | | + + +------+ + | Clotting disorder | Neg Hx | | | + + +------+ + | Fainting | Neg Hx | | | + + +------+ + | Genetic syndromes | Neg Hx | | | + + +------+ + | Heart attack | Neg Hx | | | + + +------+ + | Heart surgery | Neg Hx | | | + + +------+ + | High cholesterol | Neg Hx | | | + + +------+ + | Hypertension | Neg Hx | | | + + +------+ + | Pacemaker | Neg Hx | | | + + +------+ + | Premature CHD | Neg Hx | | | + + +------+ + | Sudden | Neg Hx | | | + + +------+ + + +------+ + + | Relation | Name | Status | Comments | + +------+ + + | Brother | | | | + +------+ + + | Father | | | | + +------+ + + | Maternal Grandfather | | | | + +------+ + + | Maternal Grandmother | | | | + +------+ + + | Mother | | | | + +------+ + + | Paternal Grandfather | | | | + +------+ + + | Paternal Grandmother | | | | + +------+ + + | Sister | | | | + +------+ + + Social History + + + [...] recent travel history available. | + + Last Filed Vital Signs + + + + + | Vital Sign | Reading | Time Taken | Comments | + + + + + | Blood Pressure | 98/50 | 07/06/2019 12:05 PM | | | | | PST | | + + + + + | Pulse | 73 | 07/06/2019 12:05 PM | | | | | PST | | + + + + + | Temperature | 36.7 C (98.1 F) | 05/26/2019 3:38 PM | | | | | PDT | | + + + + + | Respiratory Rate | 18 | 07/06/2019 12:05 PM | | | | | PST | | + + + + + | Oxygen Saturation | 89% | 07/06/2019 12:05 PM | | | | | PST | | + + + + + | Inhaled Oxygen | - | - | | | Concentration | | | | + + + + + | Weight | 105.7 kg (233 lb 0.4 | 07/06/2019 12:05 PM | | | | oz) | PST | | + + + + + | Height | 170.2 cm (5' 7") | 07/06/2019 12:05 PM | | | | | PST | | + + + + + | Body Mass Index | 36.5 | 07/06/2019 12:05 PM | | | | | PST | | + + + + + Plan of Treatment +--------+ + + + + | Date | Type | Specialty | Care Team | Description | +--------+ + + + + | 07/16/ | Off-Site | Nephrology | Maty Tian | | | 2018 | Visit | | DO Rol[place] [address] [place] [address] | | | | | | [address] | | | | | | [place] | | | | | | [id number] | | | | | | | | +--------+ + + + + | 09/25/ | Office | Cardiology | Sheldon Spence | | | 2019 | Visit | | MD Paul [address] | | | | | | [address] [facility] | | | | | | [place] | | | | | | [address] | | | | | | | [...] | | | | | [place] | | | | | | [address] | | | | | | | | +--------+ + + + + + + + + + | Health Maintenance | Due Date | Last Done | Comments | + + + + + | Diabetic Eye Exam | | | | | | 5 | | | + + + + + | Diabetic Foot Exam | | | | | | 5 | | | + + + + + | Vaccine: Zoster (1 | | | | | of 2) | 7 | | | + + + + + | Adult Annual | | | | | Wellness Visit | 5 | | | + + + + + | Vaccine: | | 07/08/2014, 09/17/2004, | | | Pneumococcal 65+ (2 | 5 | 05/19/1995 | | | of 2 - PPSV23) | | | | + + + + + | Vaccine: | | 05/22/2006, 05/10/1996, | | | Dtap/Tdap/Td (2 - | 6 | 05/10/1996 | | | Td) | | | | + + + + + | Hemoglobin A1c | | 06/26/2018 | | | Screening | 9 | | | + + + + + | Vaccine: Influenza | | 04/11/2017, 05/14/2008, | | | (#1) | 9 | 05/12/2007, Additional history | | | | | exists | | + + + + + | Colorectal Cancer | | 12/18/2015 | | | Screening | 6 | | | | (Colonoscopy) | | | | + + + + + | AAA Screening | Completed | 06/26/2018, 05/18/2018, | | | | | 12/12/2015 | | + + + + + | Hepatitis C | Completed | 07/07/2018 | | | Screening | | | | + + + + + Implants + +------+--------+ +--------+--------+--------+ | Implanted | Type | Area | Manufacture | Device | Shelf | Model | | | | | r | | Expira | / | | | | | | Identi | tion | Serial | | | | | | fier | Date | / Lot | + +------+--------+ +--------+--------+--------+ | Lens [id number] 14.5 - [id number] | | Left: | [employer] | | 07/31/ | [id number] | | [id number]: Qty: 1 on | | Eye | - [facility] | | 2016 | 14.5 | | 09/16/2014 by Max, | | | | | | /[id number] | | Charisse Batres MD at [facility] | | | | | | [address] | | [facility] | | | | | | 036 / | + +------+--------+ +--------+--------+--------+ | Lens [id number] - [id number] | | Right: | [employer] | | 08/24/ | [id number] | | [id number]: Qty: 1 on | | Eye | - [employer] | | 2018 | 14.5 | | 10/14/2014 by Max, | | | | | | /[id number] | | Charisse Batres MD at [facility] | | | | | | 364 | | [facility] | | | | | | 058 / | + +------+--------+ +--------+--------+--------+ Procedures + +--------+ + + + | Procedure Name | Priori | Date/Time | Associated Diagnosis | Comments | | | ty | | | | + +--------+ + + + | IR BIOPSY BONE DEEP | Routin | 07/06/2019 | Paraspinal mass | Results for this | | | e | 5:25 PM | Fracture of vertebra | procedure are in the | | | | PST | due to | results section. | | | | | osteoporosis, | | | | | | initial encounter | | | | | | (HCC) | | + +--------+ + + + | CULTURE, TISSUE, | STAT | 07/06/2019 | Mass of spine | Results for this | | SMEAR, AEROBE | | 5:00 PM | | procedure are in the | | | | PST | | results section. | + +--------+ + + + | CULTURE, ANAEROBE | STAT | 07/06/2019 | Mass of spine | Results for this | | | | 5:00 PM | | procedure are in the | | | | PST | | results section. | + +--------+ + + + | CULTURE, TISSUE, | STAT | 07/06/2019 | Mass of spine | Results for this | | SMEAR, WITH | | 5:00 PM | | procedure are in the | | ANAEROBES | | PST | | results section. | + +--------+ + + + | CT THORACIC SPINE W | Routin | 07/03/2019 | | Results for this | | WO CONTRAST | e | 7:45 PM | | procedure are in the | | | | PST | | results section. | + +--------+ + + + | DEVICE | Routin | 06/25/2019 | AICD (automatic | Results for this | | INTERROGATION- | e | 8:00 AM | cardioverter/defibri | procedure are in the | | REMOTE | | PST | llator) present | results section. | | | | | Ischemic | | | | | | cardiomyopathy VT | | | | | | (ventricular | | | | | | tachycardia) (HCC) | | | | | | Left bundle branch | | | | | | block (LBBB) | | | | | | Persistent atrial | | | | | | fibrillation | | + +--------+ + + + | CT CHEST WO CONTRAST | Routin | 05/24/2019 | | Results for this | | | e | 12:00 AM | | procedure are in the | | | | PDT | | results section. | + +--------+ + + + | XR CHEST PA AND | Routin | 05/15/2019 | | Results for this | | LATERAL | e | 12:00 AM | | procedure are in the | | | | PDT | | results section. | + +--------+ + + + from Last 3 Months Results IR Biopsy Bone Deep (07/06/2019 5:25 PM PST) + + | Specimen | + + | | + + + + + | Impressions | Performed At | + + + | Images demonstrate a needle extending to the right paraspinal aspect | [facility] | | of what appears to be T6-T7. Please see operative report for | | | further details. Dictated and Signed by: Fadi Shell MD | | | Electronically signed: 07/11/2019 11:52 AM | | + + + + + + | Narrative | Performed At | + + + | IR BIOPSY BONE DEEP 07/06/2019 5:22 PM HISTORY: Needle Biopsy of | [facility] | | paraspinous mass. COMPARISON: Multiple priors dated 07/03/2019, | | | 05/24/2019, and 10/26/2018 FINDINGS: Intraoperative fluoroscopic | | | spot images were obtained for purposes of anatomic localization. | | + + + + + | Procedure Note | + + | Lalo, Rad Results In - 07/11/2019 11:55 AM PST IR BIOPSY BONE DEEP 07/06/2019 5:22 PM | | | | HISTORY: Needle Biopsy of paraspinous mass. | | | | COMPARISON: Multiple priors dated 07/03/2019, 05/24/2019, and 10/26/2018 | | | | FINDINGS: | | | | Intraoperative fluoroscopic spot images were obtained for purposes of anatomic | | localization. | | | | IMPRESSION: | | Images demonstrate a needle extending to the right paraspinal aspect of what | | appears to be T6-T7. | | | | Please see operative report for further details. | | | | Dictated and Signed by: Fadi Shell MD | | Electronically signed: 07/11/2019 11:52 AM | + + + +---------+ + + | Performing | Address | City/State/Zipcode | Phone Number | | Organization | | | | + +---------+ + + | [facility] | | | | + +---------+ + + Culture, Tissue, Smear, Aerobe (07/06/2019 5:00 PM PST) + + + + + + | Component | Value | Ref Range | Performed | Pathologist | | | | | At | Signature | + + + + + + | Culture | 1+ Staphylococcus | | [facility] | | | | epidermidisComment: | | [facility] | | | | Growth in THIO tube | | MEDICAL | | | | onlyProbable contaminant | | CENTER - | | | | | | LABORATORY | | + + + + + + | Gram Stain | 2+ White Blood Cells | | [facility] | | | Result | | | [facility] | | | | | | MEDICAL | | | | | | CENTER - | | | | | | LABORATORY | | + + + + + + | Gram Stain | No organisms seen | | [facility] | | | Result | | | [facility] | | | | | | MEDICAL | | | | | | CENTER - | | | | | | LABORATORY | | + + + + + + + + | Specimen | + + | Tissue - Specimen | | from bone (specimen) | + + + + + + + | Performing | Address | City/State/Zipcode | Phone Number | | Organization | | | | + + + + + | [facility] | [address] | [place] | [phone] | | [facility] | | [address] | | | - LABORATORY | | | | + + + + + Culture, Anaerobe (07/06/2019 5:00 PM PST) + + + + + + | Component | Value | Ref Range | Performed | Pathologist | | | | | At | Signature | + + + + + + | Culture | No anaerobes isolated. | | [facility] | | | | | | [facility] | | | | | | MEDICAL | | | | | | CENTER - | | | | | | LABORATORY | | + + + + + + + + | Specimen | + + | Tissue - Specimen | | from bone (specimen) | + + + + + + + | Performing | Address | City/State/Zipcode | Phone Number | | Organization | | | | + + + + + | [facility] | [address] | [place] | [phone] | | [facility] | | [address] | | | - LABORATORY | | | | + + + + + CT Thoracic Spine w wo Contrast (07/03/2019 7:45 PM PST) + + | Specimen | + + | | + + + + + | Narrative | Performed At | + + + | External films for comparison only | [facility] | | | | | No results will be in the chart. | | + + + + +---------+ + + | Performing | Address | City/State/Zipcode | Phone Number | | Organization | | | | + +---------+ + + | [facility] | | | | + +---------+ + + Device Interrogation - Remote (06/25/2019 8:00 AM PST) + + + | Narrative | Performed At | + + + | Emily Adamson | [facility] | | Yuval Technologist 07/03/2019 8:49 AMICD REMOTE | | | INTERROGATION REPORT Name: David Romero Cirilo PCP: Gregory Drummond MD | | | : 1945MRN: [id number] Primary cardiology provider: None | | | Primary electrophysiology provider: [employer] | | | vice president planning: [employer] Device type: Biventricular Battery | | | Longevity: 6 yrs RA Pacin% RV Pacin%BiV Pacin% | | | INTERROGATION RESULTS:Please see the full interrogation report | | | attached Known history of atrial flutter or atrial fibrillation: | | | NoCurrent antithrombotic therapy including: N/A Mode switches: | | | programmed VVIR-BiV. VT/VF Detections: 3 VT-1 episdoes most recent | | | 05/22/19 4 sec Afib w/RVR V rate 173 bpm. Lead function: Lead | | | impedance and threshold value trends have been reviewed and are | | | acceptable based on most recent evaluation. CHF: Congestive heart | | | failure parameters and trends have been reviewed and are stable Follow | | | up: The next scheduled interrogation will be in 3 months in the | | | cardiac device clinic. Additional comments: None. IMPRESSION:1. | | | Normal ICD function.2. programmed VVIR-Biv.3. No VT/VF therapies have | | | been given since the last interrogation. Testing reviewed by: Anat | | | Yuval professor of graphic design [facility] | | | | | |INTERROGATION RESULTS: | | |Please see the full interrogation report attached | | | | | |Known history of atrial flutter or atrial fibrillation: No | | |Current antithrombotic therapy including: N/A | | | | | |Mode switches: programmed VVIR-BiV. | | | | | |VT/VF Detections: 3 VT-1 episdoes most recent 05/22/19 4 sec | | |Afib w/RVR V rate 173 bpm. | | | | | |Lead function: Lead impedance and threshold value trends have | | |been reviewed and are acceptable based on most recent evaluation. | | | | | |CHF: Congestive heart failure parameters and trends have been | | |reviewed and are stable | | | | | |Follow up: The next scheduled interrogation will be in 3 months | | |in the cardiac device clinic. | | | | | |Additional comments: None. | | | | | |IMPRESSION: | | |1. Normal ICD function. | | |2. programmed VVIR-Biv. | | |3. No VT/VF therapies have been given since the last | | |interrogation. | | | | | |Testing reviewed by: Anat Barakat, professor of graphic design [facility] | | | | | | | | | | | + + + + +---------+ + + | Performing | Address | City/State/Zipcode | Phone Number | | Organization | | | | + +---------+ + + | [facility] | | | | + +---------+ + + CT Chest wo Contrast (05/24/2019 12:00 AM PDT) + + | Specimen | + + | | + + + + + | Narrative | Performed At | + + + | External films for comparison only | [facility] | | | | | No results will be in the chart. | | + + + + +---------+ + + | Performing | Address | City/State/Zipcode | Phone Number | | Organization | | | | + +---------+ + + | [facility] | | | | + +---------+ + + XR Chest PA and Lateral (05/15/2019 12:00 AM PDT) + + | Specimen | + + | | + + + + + | Narrative | Performed At | + + + | External films for comparison only | [facility] | | | | | No results will be in the chart. | | + + + + +---------+ + + | Performing | Address | City/State/Zipcode | Phone Number | | Organization | | | | + +---------+ + + | [facility] | | | | + +---------+ + + from Last 3 Months Additional Health Concerns + + + + | Infection | Noted Time | Resolved Time | + + + + | Methicillin-resistant Staphylococcus aureus | 10/30/2018 9:33 AM | | | | PDT | | + + + + Insurance + +--------+ +--------+ +---------+--------+ | Payer | Benefi | Subscriber | Effect | Phone | Address | Type | | | t Plan | ID | eugenio | | | | | | / | | Dates | | | | | | Group | | | | | | + +--------+ +--------+ +---------+--------+ | MEDICARE | MEDICA | [id number] | | [phone] | | Medica | | | RE | | 004-Pr | 5 | | re | | | PART A | | esent | | | | | | AND B | | | | | | + +--------+ +--------+ +---------+--------+ | MEDICARE | MEDICA | [id number] | | [phone] | | Medica | | | RE | | 005-Pr | 5 | | re | | | PART A | | esent | | | | | | AND B | | | | | | + +--------+ +--------+ +---------+--------+ | AARP | AARP | [id number] | 07/25/19 | [phone] | | Indemn | | | MDCR | | 15-Pre | 0 | | ity | | | SUPPL | | sent | | | | + +--------+ +--------+ +---------+--------+ | AARP | AARP | [id number] | 07/25/19 | [phone] | | Indemn | | | MDCR | | 19-Pre | 0 | | ity | | | SUPPL | | sent | | | | + +--------+ +--------+ +---------+--------+ | [employer] | [employer] | [id number] | 07/25/19 | | | Indemn | | SERVICE | YELLOW | | 15-Pre | | | ity | | | HAWK | | sent | | | | + +--------+ +--------+ +---------+--------+ | [employer] | [employer] | [id number] | 07/25/19 | | | Indemn | | SERVICE | YELLOW | | 19-Pre | | | ity | | | HAWK | | sent | | | | + +--------+ +--------+ +---------+--------+ + +--------+ +--------+ + + | Guarantor Name | Accoun | Relation to | Date | Phone | Billing Address | | | t Type | Patient | of | | | | | | | | | | + +--------+ +--------+ + + | David Kerr | Person | Self | [birth year] | | [address] | | | al/Fam | | 1946 | [phone] | [place], [place] | | | eliane | | | 4 (Home) | [address] | + +--------+ +--------+ + + | David Kerr | Person | Self | [birth year] | | [address] | | | al/Fam | | 1946 | [phone] | [place], [place] | | | eliane | | | 4 (Home) | [address] | + +--------+ +--------+ + + | David Kerr | Specia | Self | [birth year] | | [address] | | | l | | 1946 | [phone] | [place] | | | [place] | | | 4 ([place]) | [address] | | | es | | | | | + +--------+ +--------+ + + Advance Directives + + + + + | Type | Date Recorded | Patient | Explanation | | | | Pouncing Machine Operator | | + + + + + | Power of | | | | | Machine Assembler Supervisor | | | | + + + + + | Advance | 09/05/2018 10:19 | | LIVING WILL | | Directive | AM | | | + + + + + + + + + + | Code Status | Date | Date | Comments | | | Activated | Inactivated | | + + + + + | DNR (No | 10/26/2018 | 11/01/2018 | | | Code) | 4:57 PM | 1:13 PM | | + + + + + + + +---+ | RN or MD to pronounce: | RN may | | | | pronounce | | + + +---+ + + + +---+ | | | | | + + + +---+ | Full Code | 09/05/2018 | 09/05/2018 | | | | 6:20 PM | 9:39 PM | | + + + +---+ + + + +---+ | | | | | + + + +---+ | DNR (No | 07/06/2018 | 07/08/2018 | | | Code) | 9:33 AM | 5:25 PM | | + + + +---+ + + +---+ | Orders discussed with: | Patient | | + + +---+ | Resources consulted for | POLST | | | continuity: | | | + + +---+ | RN or to pronounce: | RN may | | | | pronounce | | + + +---+ + + + +---+ | | | | | + + + +---+ | Partial | 06/30/2018 | 07/06/2018 | | | Code | 11:31 AM | 9:33 AM | | + + + +---+ + + +---+ | Rescue breathing via AMBU/Bag | Yes | | | valve mask: | | | + + +---+ | BiPAP/CPAP: | Yes | | + + +---+ | Intubation/mechanical | Yes | | | ventilation: | | | + + +---+ | Chest compressions: | No | | + + +---+ | Electrical shock for | No | | | resuscitation: | | | + + +---+ | ACLS/PALS/NRP Protocol Meds: | No | | + + +---+ | Vasopressors: | Yes | | + + +---+ | Orders discussed with: | Patient | | | | Pouncing Machine Operator | | + + +---+ | Resources consulted for | POLST | | | continuity: | | | + + +---+ | RN or MD to pronounce: | RN may | | | | pronounce | | + + +---+ + + + +---+ | | | | | + + + +---+ | Full Code | 06/26/2018 | 06/30/2018 | | | | 1:13 PM | 11:31 AM | | + + + +---+
--- OUTSIDE RECORDS SUMMARY | ~2019-07-14 | XMS | Encounter Summary ---
Demographics + + + | Address | [address] | | | [place] [address] | + + + | Home Phone | | + + + | Preferred Language | Unknown | + + + | Marital Status | | + + + | Denominational Affiliation | 1041 | + + + | Race | Unknown | + + + | Ethnic Group | Unknown | + + + Author + + + | Author | [facility] | | | and [place] | + + + | Organization | [facility] | | | and [place] | + + + | Address | Unknown | + + + | Phone | Unavailable | + + + Support + + + + + | Name | Relationship | Address | Phone | + + + + + | Lula Kerr | ECON | [address] | | | | | [place] | | | | | [address] | | + + + + + Care Team Providers + +------+ + | Care Print Buyer Name | Role | Phone | + +------+ + | Gregory Drummond MD | PCP | | + +------+ + Reason for Visit + + + | Reason | Comments | + + + | Device Check | | | (Remote) | | + + + Evaluate & Treat (Routine) +--------+--------+ + + + + | Status | Reason | Specialty | Diagnoses / | Referred By | Referred To | | | | | Procedures | Contact | Contact | +--------+--------+ + + + + | Closed | | Cardiology | Diagnoses | Bebe, | Ramesh | | | | | Ventricular | Sheldon | Cardiology | | | | | tachycardia | MD Paul | Mp | | | | | ([facility]) BS | [address] | | | | | ICD 3 month | [address] | [address] | | | | | remote | [address] | [place], [place] | | | | | Procedures | [place], | [address] | | | | | REMOTE | [place] [address] | Phone: | | | | | DEVICE CHECK | Phone: | [phone] | | | | | | [phone] | Fax: | | | | | | Fax: | [phone] | | | | | | [phone] | | +--------+--------+ + + + + Encounter Details +--------+ + + + + | Date | Type | Department | Care Team | Description | +--------+ + + + + | 06/25/ | Procedure | [facility] | | VT (ventricular | | 2019 | visit | CARDIOLOGY [place] | | tachycardia) ([facility]) | | | | [address] | | (Primary Dx); AICD | | | | [place], [place] | | (automatic | | | | [address] | | cardioverter/defibri | | | | [phone] | | llator) present ; | | | | | | Ischemic | | | | | | cardiomyopathy; Left | | | | | | bundle branch block | | | | | | (LBBB); Persistent | | | | | | atrial fibrillation | +--------+ + + + + Social [...] | | Former User | | | 12/20 | | | | | 18 | [...] | Visit | | DO Rolan [address] | | | | | | [address] | | | | | | [place] | | | | | | [id number] | | | | | | | | +--------+ + + + + | 09/25/ | Office | Cardiology | Sheldon Spence | | | 2019 | Visit | | MD [address] | | | | | | [address] | | | | | | [place] | | | | | | [address] | | | | | | | | +--------+ + + + + | 09/25/ | Procedure | Cardiology | | | | 2019 | visit | | | | +--------+ + + + + | 11/28/ | Office | Cardiology | Puja DO Natalie | | | 2019 | Visit | | [address] | | | | | | [place] | | | | | | [address] | | | | | | | [...] | | + +--------+ + + + documented in this encounter Results Device Interrogation - Remote (06/25/2019 8:00 AM PST) + + + | Narrative | Performed At | + + + | Emily Adamson | [facility] | | Yuval Technologist 07/03/2019 8:49 AMICD REMOTE | | | INTERROGATION REPORT Name: David Romero Cirilo PCP: Gregory Drummond MD | | | : 1945MRN: [id number] Primary cardiology provider: None | | | Primary electrophysiology provider: Sangeetha Spence Device | | | primer and powder canning leader: [employer] Device type: Biventricular Battery | | | [...] reviewed by: Anat | | | Yuval certified pharmacy tech [facility] | | | | | |INTERROGATION [...] | | |Testing reviewed by: Anat Barakat, certified pharmacy tech [facility] | | | | | | | | | | | + + + + +---------+ + + | Performing | Address | City/State/Zipcode | Phone Number | | Organization | | | | + +---------+ + + | [facility] | | | | + +---------+ + + documented in this encounter Visit Diagnoses + + | Diagnosis | + + | VT (ventricular tachycardia) (HCC) - Primary Paroxysmal ventricular tachycardia | + + | AICD (automatic cardioverter/defibrillator) present Automatic implantable cardiac | | defibrillator in situ | + + | Ischemic cardiomyopathy Other specified forms of chronic ischemic heart disease | + + | Left bundle branch block (LBBB) | + + | Persistent atrial fibrillation Atrial fibrillation | + + documented in this encounter Additional Health Concerns + + + + | Infection | Noted Time | Resolved Time | + + + + | Methicillin-resistant Staphylococcus aureus | 10/30/2018 9:33 AM | | | | PDT | | + + + + documented as of this encounter"
--- OUTSIDE RECORDS SUMMARY | ~2019-07-14 | XMS | Encounter Summary ---
Demographics + + + | Address | [address] | | | [place] [address] | + + + | Home Phone | | + + + | Preferred Language | Unknown | + + + | Marital Status | | + + + | Hoahaoism Affiliation | 1041 | + + + | Race | Unknown | + + + | Ethnic Group | Unknown | + + + Author + + + | Author | [facility] | | | and [place] | + + + | Organization | [facility] | | | and [place] | + + + | Address | Unknown | + + + | Phone | Unavailable | + + + Support + + + + + | Name | Relationship | Address | Phone | + + + + + | Lula Kerr | ECON | [address] | | | | | [place] | | | | | [address] | | + + + + + Care Team Providers + +------+ + | Care Patient Monitor Name | Role | Phone | + +------+ + | Gregory Drummond MD | PCP | | + +------+ + Encounter Details +--------+ + + + + | Date | Type | Department | Care Team | Description | +--------+ + + + + | 11/13/ | Orders Only | [facility] | Katharine Silvina W, | | | 2019 | | NEPHROLOGY [address] | MD [address] | | | | | [address] | [address] [place] | | | | | [place], [place] | [place] [address] | | | | | [address] | [phone] | | | | | [phone] | | | +--------+ + + + [...] Maty Tian | | | 2019 | Visit | | DO Elton [address] | | | | | | [address] | | | | | | [place] | | | | | | [address] | | | | | | | | +--------+ + + + + | 09/25/ | Office | Cardiology | Sheldon Spence | | | 2019 | Visit | | MD [address] | | | | | | [address] | | | | | | [place] | | | | | | [address] | | | | | | | [...] [place] | | | | | | [address] | | | | | | | [...]
--- OUTSIDE RECORDS SUMMARY | ~2019-07-14 | XMS | Encounter Summary ---
Demographics + + + | Address | [address] | | | [place] [address] | + + + | Home Phone | | + + + | Preferred Language | Unknown | + + + | Marital Status | | + + + | Latter-Day Affiliation | 1041 | + + + | Race | Unknown | + + + | Ethnic Group | Unknown | + + + Author + + + | Author | [facility] | | | and [place] | + + + | Organization | [facility] | | | and [place] | + + + | Address | Unknown | + + + | Phone | Unavailable | + + + Support + + + + + | Name | Relationship | Address | Phone | + + + + + | Lula Kerr | ECON | [address] | | | | | [place] | | | | | [address] | | + + + + + Care Team Providers + +------+ + | Care Php Mysql Web Developer Name | Role | Phone | + +------+ + | Gregory Drummond MD | PCP | | + +------+ + Reason for Visit + + + | Reason | Comments | + + + | Gout Pain | | + + + Encounter Details +--------+ + + + + | Date | Type | Department | Care Team | Description | +--------+ + + + + | 07/18/ | Telephone | [facility] [place] [facility] | Angelito Hernandes MD | Gout Pain | | 2017 | | MEDICINE [address] | [address] | | | | | Street [place] | [place], [place] | | | | | [place] [address] | [address] | | | | | [phone] | | | +--------+ + + + [...] | Visit | | DO Rolan [address] | | | | | | [address] | | | | | | [place] | | | | | | [address] | | | | | | | | +--------+ + + + + | 09/25/ | Office | Cardiology | Sheldon Spence | | | 2019 | Visit | | MD [address] | | | | | | [address] | | | | | | [place] | | | | | | [address] | | | | | | | [...] [place] | | | | | | [address] | | | | | | | | +--------+ + + + + documented as of this encounter Visit Diagnoses Not on filedocumented in this encounter"
--- OUTSIDE RECORDS SUMMARY | ~2019-07-14 | XMS | Encounter Summary ---
Demographics + + + | Address | [address] | | | [place] [address] | + + + | Home Phone | | + + + | Preferred Language | Unknown | + + + | Marital Status | | + + + | Protestant Affiliation | 1041 | + + + [...] + | Lula Kerr | ECON | [address] | | | | | [place] | | | | | [address] | | + + + + + Care Team Providers + +------+ + | Care Shop Helper Name | Role | Phone | + +------+ + | Gregory Drummond MD | PCP | | + +------+ + Encounter Details +--------+ + + + + | Date | Type | Department | Care Team | Description | +--------+ + + + + | 09/20/ | Orders Only | [facility] [place] | Silvina Alcantar W, | ESRD (end stage | | 2019 | | NEPHROLOGY [address] | renal disease) ([facility]) | | | | [address] | [address] [place] | (Primary Dx) | | | | [place], [place] | [place] [address] | | | | | [address] | [phone] | | | | | [phone] | | | +--------+ + + + [...] | Visit | | DO Rolan [address] | | | | | | [address] | | | | | | [place] | | | | | | [address] | | | | | | | | +--------+ + + + + | 09/25/ | Office | Cardiology | Sheldon Spence | | | 2019 | Visit | | MD [address] | | | | | | [address] | | | | | | [place] | | | | | | [address] | | | | | | | [...] [place] | | | | | | [address] | | | | | | | | +--------+ + + + + documented as of this encounter Visit Diagnoses + + | Diagnosis | + + | ESRD (end stage renal disease) (HCC) - Primary End stage renal disease | + + documented in this encounter"
--- OUTSIDE RECORDS SUMMARY | ~2019-07-14 | XMS | Encounter Summary ---
Demographics + + + | Address | [address] | | | [place] [address] | + + + | Home Phone | | + + + | Preferred Language | Unknown | + + + | Marital Status | | + + + | Restoration Affiliation | 1041 | + + + | Race | Unknown | + + + | Ethnic Group | Unknown | + + + Author + + + | Author | [facility] | | | and [place] | + + + | Organization | [facility] | | | and [place] | + + + | Address | Unknown | + + + | Phone | Unavailable | + + + Support + + + + + | Name | Relationship | Address | Phone | + + + + + | Lula Kerr | ECON | [address] | | | | | [place] | | | | | [address] | | + + + + + Care Team Providers + +------+ + | Care Interlocker Maintainer Name | Role | Phone | + +------+ + | Gregory Drummond MD | PCP | | + +------+ + Reason for Visit + + + | Reason | Comments | + + + | Medication | [facility] | | Management | | + + + Encounter Details +--------+ + + + + | Date | Type | Department | Care Team | Description | +--------+ + + + + | 11/13/ | Telephone | [facility] [place] | Silvina Alcantar W, | Medication | | 2019 | | NEPHROLOGY [address] | [address] | Management | | | | [address] | [address] [place] | ([facility]) | | | | [place], [place] | [place] [address] | | | | | [address] | [phone] | | | | | [phone] | | | +--------+ + + + [...] | Visit | | DO Rolan [address] | | | | | | [address] | | | | | | [place] | | | | | | [address] | | | | | | | | +--------+ + + + + | 09/25/ | Office | Cardiology | Sheldon Spence | | | 2019 | Visit | | MD [address] | | | | | | [address] | | | | | | [place] | | | | | | [address] | | | | | | | | +--------+ + + + + | 09/25/ | Procedure | Cardiology | | | | 2019 | visit | | | | +--------+ + + + + | 11/28/ | Office | Cardiology | Natalie Luo DO | | | 2020 | Visit | | [address] | | | | | | [facility] | | | | | | [address] | | | | | | | [...]
--- OUTSIDE RECORDS SUMMARY | ~2019-07-14 | XMS | Encounter Summary ---
Demographics + + + | Address | [address] | | | [place] [address] | + + + | Home Phone | | + + + | Preferred Language | Unknown | + + + | Marital Status | | + + + | Mormonism Affiliation | 1041 | + + + | Race | Unknown | + + + | Ethnic Group | Unknown | + + + Author + + + | Author | [facility] | | | and [place] | + + + | Organization | [facility] | | | and [place] | + + + | Address | Unknown | + + + | Phone | Unavailable | + + + Support + + + + + | Name | Relationship | Address | Phone | + + + + + | Lula Kerr | ECON | [address] | | | | | [place] | | | | | [address] | | + + + + + Care Team Providers + +------+ + | Care Spring Fitter Name | Role | Phone | + +------+ + | Gregory Drummond MD | PCP | | + +------+ + Encounter Details +--------+ + + + + | Date | Type | Department | Care Team | Description | +--------+ + + + + | 02// | Preadmit | [facility] | Amilcar Hampton | Hypertension, | | 2019 | Visit | [facility] | MD Omar, FACS [address] | unspecified type | | | | CLINIC [address] | [place]AL MCCONNELL | (Primary Dx); ESRD | | | | [place], [place] | [place] [address] | (end stage renal | | | | [address] | [phone] | disease) ([facility]); | | | | [phone] | | Chronic | | | | | | anticoagulation | +--------+ + + + + Social [...] | Visit | | DO Rolan [address] | | | | | | [address] | | | | | | [place] | | | | | | [address] | | | | | | | | +--------+ + + + + | 09/25/ | Office | Cardiology | Sheldon Spence | | | 2019 | Visit | | MD [address] | | | | | | [address] | | | | | | [place] | | | | | | [address] | | | | | | | [...] [place] | | | | | | [address] | | | | | | | | +--------+ + + + + documented as of this encounter Procedures + +--------+ + + + | Procedure Name | Priori | Date/Time | Associated Diagnosis | Comments | | | ty | | | | + +--------+ + + + | PTT | Routin | 08/31/2018 | Chronic | Results for this | | | e | 10:27 AM | anticoagulation | procedure are in the | | | | PST | | results section. | + +--------+ + + + | PROTIME INR | Routin | 08/31/2018 | Chronic | Results for this | | | e | 10:27 AM | anticoagulation | procedure are in the | | | | PST | | results section. | + +--------+ + + + | PLATELET COUNT | Routin | 08/31/2018 | Hypertension, | Results for this | | | e | 10:27 AM | unspecified type | procedure are in the | | | | PST | | results section. | + +--------+ + + + | HEMOGLOBIN | Routin | 08/31/2018 | Hypertension, | Results for this | | | e | 10:27 AM | unspecified type | procedure are in the | | | | PST | | results section. | + +--------+ + + + | BASIC METABOLIC | Routin | 08/31/2018 | ESRD (end stage | Results for this | | PANEL | e | 10:27 AM | renal disease) (HCC) | procedure are in the | | | | PST | | results section. | + +--------+ + + + | ECG 12 LEAD | Routin | 08/31/2018 | Hypertension, | Results for this | | | e | 10:22 AM | unspecified type | procedure are in the | | | | PST | | results section. | + +--------+ + + + documented in this encounter Results Hemoglobin (08/31/2018 10:27 AM PST) + + + + + + | Component | Value | Ref Range | Performed | Pathologist | | | | | At | Signature | + + + + + + | Hemoglobin | 11.3 (L) | 13.5 - 18.0 | [facility] | | | | | g/dL | [facility] | | | | | | [facility] | | | | | | C[facility] - | | | | | | LABORATORY | | + + + + + + + + | Specimen | + + | Blood | + + + + + + + | Performing | Address | City/State/Zipcode | Phone Number | | Organization | | | | + + + + + | [facility] | [address] | [place] | [phone] | | [facility] | | [address] | | | - LABORATORY | | | | + + + + + Platelet Count (08/31/2018 10:27 AM PST) + +-------+ + + + | Component | Value | Ref Range | Performed | Pathologist | | | | | At | Signature | + +-------+ + + + | Platelet | 205 | 140 - 440 K/uL | [facility] | | | Count | | | [facility] | | | [facility] | [facility] | | | | | | CENTER - | | | | | | LABORATORY | | + +-------+ + + + | MPV | 9.9 | 6.5 - 12.4 fL | [facility] | | | | | | [facility] | | | | [facility] | [facility] | | | | | | CENTER - | | | | | | LABORATORY | | + +-------+ + + + + + | Specimen | + + | Blood | + + + + + + + | Performing | Address | City/State/Zipcode | Phone Number | | Organization | | | | + + + + + | [facility] | [address] | [place] | [phone] | | [facility] | | [address] | | | - LABORATORY | | | | + + + + + PTT (08/31/2018 10:27 AM PST) + +-------+ + + + | Component | Value | Ref Range | Performed | Pathologist | | | | | At | Signature | + +-------+ + + + | aPTT | 29 | 22 - 36 seconds | [facility] | | | | | | [facility] | | | | | | MEDICAL | | | | | | CENTER - | | | | | | LABORATORY | | + +-------+ + + + + + | Specimen | + + | Blood | + + + + + + + | Performing | Address | City/State/Zipcode | Phone Number | | Organization | | | | + + + + + | [facility] | [address] | [place] | [phone] | | [facility] | | [address] | | | - LABORATORY | | | | + + + + + Protime INR (08/31/2018 10:27 AM PST) + + + + + + | Component | Value | Ref Range | Performed | Pathologist | | | | | At | Signature | + + + + + + | Prothrombin | 14.2 (H) | 11.3 - 13.9 | [facility] | | | Time | | seconds | [facility] | | | | | | MEDICAL | | | | | | CENTER - | | | | | | LABORATORY | | + + + + + + | INR | 1.1Comment: Usual Oral | 0.9 - 1.1 | [facility] | | | | Anticoagulation Range: | | [facility] | | | | 2.0 - 3.0High | | MEDICAL | | | | Level Oral | | CENTER - | | | | Anticoagulation Range: | | LABORATORY | | | | 2.5 - 3.5 | | | | + + + + + + + + | Specimen | + + | Blood | + + + + + + + | Performing | Address | City/State/Zipcode | Phone Number | | Organization | | | | + + + + + | [facility] | [address] | [place] | [phone] | | [facility] | | [address] | | | - LABORATORY | | | | + + + + + Basic Metabolic Panel (08/31/2018 10:27 AM PST) + + + + + + | Component | Value | Ref Range | Performed | Pathologist | | | | | At | Signature | + + + + + + | Na | 132 (L) | 136 - 149 | [facility] | | | | | mmol/L | [facility] | | | | | | MEDICAL | | | | | | CENTER - | | | | | | LABORATORY | | + + + + + + | K | 3.3 (L) | 3.5 - 5.1 | [facility] | | | | | mmol/L | [facility] | | | | | | MEDICAL | | | | | | CENTER - | | | | | | LABORATORY | | + + + + + + | Cl | 93 (L) | 98 - 109 mmol/L | [facility] | | | | | | [facility] | | | | | | [facility] | | | | | | CENTER - | | | | | | LABORATORY | | + + + + + + | CO2 | 29 | 24 - 31 mmol/L | [facility] | | | | | | [facility] | | | | | | [facility] | | | | | | CENTER - | | | | | | LABORATORY | | + + + + + + | Anion Gap | 10 | 3 - 16 mmol/L | [facility] | | | | | | [facility] | | | | | | MEDICAL | | | | | | CENTER - | | | | | | LABORATORY | | + + + + + + | Glucose | 182 (H) | 70 - 109 mg/dL | [facility] | | | | | | [facility] | | | | | | MEDICAL | | | | | | CENTER - | | | | | | LABORATORY | | + + + + + + | BUN | 29 (H) | 7 - 18 mg/dL | [facility] | | | | | | [facility] | | | | | | [facility] | | | | | | CENTER - | | | | | | LABORATORY | | + + + + + + | Creatinine | 2.95 (H) | 0.60 - 1.30 | [facility] | | | | | mg/dL | [facility] | | | | | | MEDICAL | | | | | | CENTER - | | | | | | LABORATORY | | + + + + + + | eGFR if not | 21 (L)Comment: | >=60 | [facility] | | | | GLOMERULAR FILTRATION | mL/min/1.73m2 | [facility] | | | TRINIDADIAN | RATE,ESTIMATED | | MEDICAL | | | | mL/min/1.17b2Molx than | | CENTER - | | | | 60 Chronic kidney | | LABORATORY | | | | disease,if found over a | | | | | | 3-month period.Less than | | | | | | 15 Kidney failureFor | | | | | | | | | | | | Americans,multiply the | | | | | | calculated GFR by 1.21. | | | | | | | | | | + + + + + + | Calcium | 8.8 | 8.3 - 10.5 | [facility] | | | | | mg/dL | [facility] | | | | | | MEDICAL | | | | | | CENTER - | | | | | | LABORATORY | | + + + + + + | BUN/Creatin | 9.8 | | [facility] | | | ine Ratio | | | [facility] | | | [facility] | | MEDICAL | | | | | | CENTER - | | | | | | LABORATORY | | + + + + + + + + | Specimen | + + | Blood | + + + + + + + | Performing | Address | City/State/Zipcode | Phone Number | | Organization | | | | + + + + + | [facility] | [address] | [place] | [phone] | | [facility] | | [address] | | | - LABORATORY | | | | + + + + + ECG 12 lead (08/31/2018 10:22 AM PST) + + + + + + | Component | Value | Ref Range | Performed | Pathologist | | | | | At | Signature | + + + + + + | VENTRICULAR | 70 | BPM | [facility] | | | RATE EKG | | | | | + + + + + + | QRS | 166 | ms | [facility] | | | DURATION | | | | | + + + + + + | Q-T | 476 | ms | [facility] | | | INTERVAL | | | | | + + + + + + | Q-T | 514 | ms | [facility] | | | INTERVAL | | | | | | (CORRECTED) | | | | | + + + + + + | QRS AXIS | -126 | degrees | [facility] | | + + + + + + | T AXIS | 60 | degrees | [facility] | | + + + + + + | INTERPRETAT | Ventricular-paced | | [facility] | | | ION TEXT | rhythmBiventricular | | | | | | pacemaker | | | | | | detectedAbnormal ECGNo | | | | | | previous ECGs | | | | | | availableConfirmed by | | | | | | DANETTE CAICEDO MD ([id number]) | | | | | | on 09/01/2018 7:34:09 AM | | | | + + + + + + + + | Specimen | + + | | + + + + + | Narrative | Performed At | + + + | | | + + + + +---------+ + + | Performing | Address | City/State/Zipcode | Phone Number | | Organization | | | | + +---------+ + + | [facility] | | | | + +---------+ + + documented in this encounter Visit Diagnoses + + | Diagnosis | + + | Hypertension, unspecified type - Primary | + + | ESRD (end stage renal disease) (HCC) End stage renal disease | + + | Chronic anticoagulation Encounter for long-term (current) use of anticoagulants | + + documented in this encounter"
--- OUTSIDE RECORDS SUMMARY | ~2019-07-14 | XMS | Encounter Summary ---
Demographics + + + | Address | [address] | | | [place] [address] | + + + | Home Phone | | + + + | Preferred Language | Unknown | + + + | Marital Status | | + + + | Hindu Affiliation | 1041 | + + + | Race | Unknown | + + + | Ethnic Group | Unknown | + + + Author + + + | Author | [facility] | | | and [place] | + + + | Organization | [facility] | | | and [place] | + + + | Address | Unknown | + + + | Phone | Unavailable | + + + Support + + + + + | Name | Relationship | Address | Phone | + + + + + | Lula Kerr | ECON | [address] | | | | | [place] | | | | | [address] | | + + + + + Care Team Providers + +------+ + | Care Binder Technician Name | Role | Phone | + +------+ + | Gregory Drummond MD | PCP | | + +------+ + Encounter Details +--------+ + + + + | Date | Type | Department | Care Team | Description | +--------+ + + + + | 09/16/ | [facility] | [facility] | Charisse Santana | | | 2014 | Encounter | MED CTR OR INTRA OP | MD [address] | | | | | [address] | [place], | | | | | [place], [place] | [place] [address] | | | | | [address] | [phone] | | | | | [phone] | | | +--------+ + + + [...] + + + | Blood Pressure | 116/58 | 09/16/2014 12:30 PM | | | | | PST | | + + + + + | Pulse | 59 | 09/16/2014 12:30 PM | | | | | PST | | + + + + + | Temperature | 36.4 C (97.5 F) | 09/16/2014 10:55 AM | | | | | PST | | + + + + + | Respiratory Rate | 20 | 09/16/2014 12:30 PM | | | | | PST | | + + + + + | Oxygen Saturation | 96% | 09/16/2014 12:30 PM | | | | | PST | | + + + + + | Inhaled Oxygen | - | - | | | Concentration | | | | + + + + + | Weight | 117.9 kg (260 lb) | 09/16/2014 7:27 AM | | | | | PST | | + + + + + | Height | 170.2 cm (5' 7") | 09/16/2014 7:27 AM | | | | | PST | | + + + + + | Body Mass Index | 40.72 | 09/16/2014 7:27 AM | | | | | PST | | + + + + + documented in this encounter Discharge Instructions Instructions Harmony Muniz RN - 09/16/2014Formatting of this note might be different f rom the original. Small-Incision Cataract Surgery: Implanting the New Lens How Small Is an IOL? Once your old lens has been removed, your doctor slips the new lens (IOL) in through the in cision. The IOL is then positioned in the capsule that held your old lens. With the new lens in place, your doctor is ready to close the incision. Some incisions may be closed with sti tches. Others are self-sealing. That means they will stay closed on their own without stitch es. The intraocular lens does much the same thing as your old lens did before it became clou dy. It focuses light, letting you see sharp images and vivid colors. The IOL normally lasts a lifetime. [id number] [employer]. [address] [place] [address], [place] [address]. All righ ts reserved. This information is not intended as a substitute for professional medical care. Always follow your healthcare professional's instructions. documented in this encounter Medications at Time of Discharge + + + +---------+--------+ + | Medication | Sig | Dispensed | Refills | Start | End Date | | | | | | Date | | + + + +---------+--------+ + | allopurinol | Take 150 mg by mouth | | 0 | | | | (ZYLOPRIM) 300 mg | Daily. | | | | | | tablet | | | | | | + + + +---------+--------+ + | aspirin 81 MG | Take 81 mg by mouth. | | 0 | | | | tablet | Three times a week | | | | | + + + +---------+--------+ + | atorvaSTATin | Take 40 mg by mouth | | 0 | | | | (LIPITOR) 40 mg | nightly. | | | | | | tablet | | | | | | + + + +---------+--------+ + | carvedilol (COREG) | Take 25 mg by mouth | | 0 | | | | 25 mg tablet | 2 times daily. | | | | 8 | + + + +---------+--------+ + | eplerenone | Take 25 mg by mouth. | | 0 | | | | (INSPRA) 25 mg | Three times per | | | | 8 | | tablet | week | | | | | + + + +---------+--------+ + | furosemide (LASIX) | Take 40 mg by mouth | | 0 | | | | 40 mg tablet | 2 times daily. | | | | 8 | + + + +---------+--------+ + | glipiZIDE | Take 5 mg by mouth | | 0 | | | | (GLUCOTROL) 5 mg | every morning | | | | 8 | | tablet | (before breakfast). | | | | | + + + +---------+--------+ + | LISINOPRIL PO | Take 5 mg by mouth 2 | | 0 | | | | | times daily. | | | | 8 | + + + +---------+--------+ + | metformin | Take 1,000 mg by | | 0 | | | | (GLUCOPHAGE) 1000 MG | mouth 2 times daily | | | | 8 | | tablet | (with breakfast & | | | | | | | dinner). | | | | | + + + +---------+--------+ + | non-formulary | Take 10 mg by mouth | | 0 | | | | medication | Daily. Ertugliflozin | | | | 8 | | | - Diabetes study | | | | | | | drug vs. placebo | | | | | + + + +---------+--------+ + | sitaGLIPtin | Take 100 mg by mouth | | 0 | | | | (JANUVIA) 100 mg | Daily. | | | | 8 | | tablet | | | | | | + + + +---------+--------+ + | warfarin | Take 5 mg by mouth | | 0 | | | | (COUMADIN) 5 mg | Daily. On Tuesday and | | | | 8 | | tablet | pt states | | | | | | | he takes 7.5mg | | | | | + + + +---------+--------+ + documented as of this encounter Plan of Treatment +--------+ + + + + | Date | Type | Specialty | Care Team | Description | +--------+ + + + + | 07/16/ | Off-Site | Nephrology | Maty Tian | | | 2018 | Visit | | DO Rolan [address] [place] [address] | | | | | | [address] | | | | | | [place] | | | | | | [id number] | | | | | | | | +--------+ + + + + | 09/25/ | Office | Cardiology | Sheldon Spence | | | 2019 | Visit | | MD [address] | | | | | | [address] | | | | | | [place] | | | | | | [phone] | | | | | | | [...] [place] | | | | | | [address] | | | | | | | | +--------+ + + + + documented as of this encounter Procedures + +--------+ + + + | Procedure Name | Priori | Date/Time | Associated Diagnosis | Comments | | | ty | | | | + +--------+ + + + | EXTRACTION CATARACT | | 09/16/2014 | 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 | + +--------+ + + + | POC GLUCOSE | Routin | 09/16/2014 | | Results for this | | | e | 8:25 AM | | procedure are in the | | | | PST | | results section. | + +--------+ + + + documented in this encounter Results POC Fingerstick INR (09/16/2014 8:48 AM PST) + +---------+ + + + | Component | Value | Ref Range | Performed | Pathologist | | | | | At | Signature | + +---------+ + + + | INR, POC | 2.5 (A) | 0.9 - 1.2 | | | + +---------+ + + + | Instrument | | | | | | ID | | | | | + +---------+ + + + + + | Specimen | + + | Blood specimen | | (specimen) | + + POC Glucose (09/16/2014 8:25 AM PST) + +-------+ + + + | Component | Value | Ref Range | Performed | Pathologist | | | | | At | Signature | + +-------+ + + + | Glucose, | 121 | 70 - 150 mg/dL | [facility] | | | POC | | | [facility] | | [...] + | [facility] | [address] | [place], [place] | [phone] | | [facility] | | [address] | | | - LABORATORY | | | | + + + + + | [facility] | [address] | [place], [place] | | | [facility] | | [address] | | | - LABORATORY | | | | + + + + + documented in this encounter Visit Diagnoses + + | Diagnosis | + + | Class 3 obesity due to excess calories with serious comorbidity and body mass index | | (BMI) of 40.0 to 44.9 in adult | + + | DM (diabetes mellitus), type 2 (HCC) Type II or unspecified type diabetes mellitus | | without mention of complication, not stated as uncontrolled | + + | Chest pain with high risk for cardiac etiology | + + documented in this encounter Administered Medications + +--------+ +--------+------+------+ | Medication Order | MAR | Action | Dose | Rate | Site | | | Action | Date | | | | + +--------+ +--------+------+------+ | acetaZOLAMIDE (DIAMOX) tablet | Given | 09/16/19 | 250 mg | | | | 250 mg 250 mg, Oral, ONCE, Mon | | 15 8:10 | | | | | 09/16/14 at 0815, For 1 dose, | | AM PST | | | | | Pre-op | | | | | | + +--------+ +--------+------+------+ +---+---+ | | | +---+---+ + +-------+ +--------+---+---+ | albuterol 2.5 mg/3 mL nebulizer | Given | 09/16/19 | 2.5 mg | | | | solution Starting 09/16/14 | | 15 11:12 | | | | | at 1057, For 1 dose, HANNA, | | AM PST | | | | | JAMESON: ethan hernandez, | | | | | | + +-------+ +--------+---+---+ +---+---+ | | | +---+---+ + +-------+ +--------+---+---+ | cyclopentolate (CYCLOGYL) 1% | Given | 09/16/19 | 1 drop | | | | ophthalmic solution 1 drop 1 | | 15 8:33 | | | | | drop, Left Eye, EVERY 10 MIN, | | AM PST | | | | | First dose on Tue09/16/14 at | | | | | | | 0815, For 3 doses, May hold third | | | | | | | dose if pupil is at least 6mm., | | | | | | | Pre-op | | | | | | + +-------+ +--------+---+---+ +-------+ +--------+---+---+ | Given | 09/16/19 | 1 drop | | | | | 15 8:03 | | | | | | AM PST | | | | +-------+ +--------+---+---+ +---+---+ | | | +---+---+ + +-------+ +--------+---+---+ | flurbiprofen (OCUFEN) 0.03% | Given | 09/16/19 | 1 drop | | | | ophthalmic solution 1 drop 1 | | 15 8:31 | | | | | drop, Left Eye, EVERY 10 MIN, | | AM PST | | | | | First dose on Tue09/16/14 at | | | | | | | 0815, For 3 doses, May hold third | | | | | | | dose if pupil is at least 6mm., | | | | | | | Pre-op | | | | | | + +-------+ +--------+---+---+ +-------+ +--------+---+---+ | Given | 09/16/19 | 1 drop | | | | | 15 8:02 | | | | | | AM PST | | | | +-------+ +--------+---+---+ +---+---+ | | | +---+---+ + +---------+ +---+-------+---+ | lactated ringers (LR) infusion | New Bag | 09/16/19 | | 100 | | | at 10-100 mL/hr, Intravenous, | | 15 8:49 | | mL/hr | | | CONTINUOUS, Starting Tue09/16/14 | | AM PST | | | | | at 0815, TKO., Pre-op | | | | | | + +---------+ +---+-------+---+ +---+---+ | | | +---+---+ + +-------+ +--------+---+---+ | phenylephrine (KELSEY-SYNEPHRINE) | Given | 09/16/19 | 1 drop | | | | 2.5% ophthalmic solution 1 drop | | 15 8:30 | | | | | 1 drop, Left Eye, EVERY 10 MIN, | | AM PST | | | | | First dose on Tue09/16/14 at | | | | | | | 0815, For 3 doses, May hold third | | | | | | | dose if pupil is at least 6mm., | | | | | | | Pre-op | | | | | | + +-------+ +--------+---+---+ +-------+ +--------+---+---+ | Given | 09/16/19 | 1 drop | | | | | 15 8:00 | | | | | | AM PST | | | | +-------+ +--------+---+---+ +---+---+ | | | +---+---+ + +-------+ +--------+---+---+ | proparacaine (ALCAINE) 0.5% | Given | 09/16/19 | 1 drop | | | | ophthalmic solution 1 drop 1 | | 15 8:00 | | | | | drop, Left Eye, ONCE, 09/16/14 | | AM PST | | | | | at 0815, For 1 dose, Pre-op | | | | | | + +-------+ +--------+---+---+ +---+---+ | | | +---+---+ documented in this encounter
--- OUTSIDE RECORDS SUMMARY | ~2019-07-14 | XMS | Encounter Summary ---
Demographics + + + | Address | [address] | | | [place] [address] | + + + | Home Phone | | + + + | Preferred Language | Unknown | + + + | Marital Status | | + + + | Jainism Affiliation | 1041 | + + + | Race | Unknown | + + + | Ethnic Group | Unknown | + + + Author + + + | Author | [facility] | | | and [place] | + + + | Organization | [facility] | | | and [place] | + + + | Address | Unknown | + + + | Phone | Unavailable | + + + Support + + + + + | Name | Relationship | Address | Phone | + + + + + | Lula Kerr | ECON | [address] | | | | | [place] | | | | | [address] | | + + + + + Care Team Providers + +------+ + | Care Hazardous Materials Tanker Driver Name | Role | Phone | + +------+ + | Gregory Drummond MD | PCP | | + +------+ + Encounter Details +--------+ + + + + | Date | Type | Department | Care Team | Description | +--------+ + + + + | 10/14/ | [facility] | [facility] | Charisse Santana | | | 2014 | Encounter | MED CTR OR INTRA OP | MD [address] | | | | | [address] | [place], | | | | | [place], [place] | [place] [address] | | | | | [address] | [phone] | | | | | [phone] | | | +--------+ + + + [...] + + + | Blood Pressure | 126/60 | 10/14/2014 1:00 PM | | | | | PDT | | + + + + + | Pulse | 70 | 10/14/2014 1:20 PM | | | | | PDT | | + + + + + | Temperature | 36.2 C (97.2 F) | 10/14/2014 10:14 AM | | | | | PDT | | + + + + + | Respiratory Rate | 18 | 10/14/2014 1:20 PM | | | | | PDT | | + + + + + | Oxygen Saturation | 89% | 10/14/2014 1:20 PM | | | | | PDT | | + + + + + | Inhaled Oxygen | - | - | | | Concentration | | | | + + + + + | Weight | 118.3 kg (260 lb | 10/14/2014 7:28 AM | | | | 12.9 oz) | PDT | | + + + + + | Height | 170.2 cm (5' 7") | 10/14/2014 7:28 AM | | | | | PDT | | + + + + + | Body Mass Index | 40.85 | 10/14/2014 7:28 AM | | | | | PDT | | + + + + + documented in this encounter Discharge Instructions Instructions Charisse Santana MD - 10/14/2014Leave patch on until 6 pm tonight. Remove patch at 6 pm and begin ofloxacin and ketorolac eyedrops every 6 hours. documented in this encounter Medications at Time [...] +---------+--------+ + documented as of this encounter Progress Notes Rowena Whitfield RN - 10/14/2014 1:40 PM PDTPt discharged to go straight to off ice with . Dc'd in stable condition.Electronically signed by Rowena Whitfield RN at 1:41 PM Rowena Ruelas RN - 10/14/2014 1:[address] Ashley hardy [facility] Dr. Drummond on sat's of 89%. He ok'd th is request. Rowena Ruelas RN - 10/14/2014 12:32 PM PDTCalled and scheduled an appt for today at 1:30 to check his cough and low sat's. Will wean off o2 and discharge to office.Electronically s igned by Rowena Whitfield RN at 10/14/2014 12:33 PM Rowena Ruelas RN - 10/14/2014 1 1:17 AM PDTAlert and oriented. sats 92 % on 2 liters nc. Rowena Ruelas RN - 10/14/2014 11:01 AM PDTEye patch on right/eye. docume nted in this encounter Plan of Treatment +--------+ + + + + | Date | Type | Specialty | Care Team | Description | +--------+ + + + + | 07/16/ | Off-Site | Nephrology | Maty Tian | | | 2018 | Visit | | M, DO [address] | | | | | | [address] | | | | | | [place] | | | | | | [id number] | | | | | | | | +--------+ + + + + | 09/25/ | Office | Cardiology | Sheldon Spence | | | 2019 | Visit | | [address] | | | | | | [address] | | | | | | [place] | | | | | | [address] | | | | | | | [...] [place] | | | | | | [address] | | | | | | | | +--------+ + + + + + +------+--------+ + + | Name | Type | Priori | Associated Diagnoses | Order Schedule | | | | ty | | | + +------+--------+ + + | Basic Metabolic | Lab | STAT | | As Needed for 1 | | Panel | | | | Occurrences starting | | | | | | 10/14/2014 | + +------+--------+ + + documented as of this encounter Procedures + +--------+ + + + | Procedure Name | Priori | Date/Time | Associated Diagnosis | Comments | | | ty | | | | + +--------+ + + + | EXTRACTION CATARACT | | 10/14/2014 | 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 | + +--------+ + + + | POC GLUCOSE | Routin | 10/14/2014 | | Results for this | | | e | 8:06 AM | | procedure are in the | | | | PDT | | results section. | + +--------+ + + + documented in this encounter Results POC Fingerstick INR (10/14/2014 8:18 AM PDT) + +---------+ + + + | Component | Value | Ref Range | Performed | Pathologist | | | | | At | Signature | + +---------+ + + + | INR, POC | 2.0 (A) | 0.9 - 1.2 | | | + +---------+ + + + | Instrument | | | | | | ID | | | | | + +---------+ + + + + + | Specimen | + + | Blood specimen | | (specimen) | + + POC Glucose (10/14/2014 8:06 AM PDT) + +-------+ + + + | Component | Value | Ref Range | Performed | Pathologist | | | | | At | Signature | + +-------+ + + + | Glucose, | 102 | 70 - 150 mg/dL | [facility] | | | POC | | | [facility] | | [...] + + + + + | [facility] | [address] | [place] | [phone] | | [facility] | | [address] | | | - LABORATORY | | [...] | acetaZOLAMIDE (DIAMOX) tablet | Given | 10/15/19 | 250 mg | | | | 250 mg 250 mg, Oral, ONCE, Mon | | 15 7:53 | | | | | 10/14/14 at 0745, For 1 dose, | | AM PDT | | | | | Pre-op | | | | | | + +--------+ +--------+------+------+ +---+---+ | | | +---+---+ + +-------+ +--------+---+---+ | albuterol 2.5 mg/3 mL nebulizer | Given | 10/15/19 | 2.5 mg | | | | solution 2.5 mg 2.5 mg, | | 15 12:50 | | | | | Nebulization, ONCE PRN, Wheezing, | | PM PDT | | | | | Starting 10/14/14 at 1009, | | | | | | | For 1 dose, Notify anesthesia if | | | | | | | patient is wheezing and does not | | | | | | | have a history of asthma or COPD | | | | | | | or current smoking., | | | | | | | Recovery/Phase I | | | | | | + +-------+ +--------+---+---+ +---+---+ | | | +---+---+ + +-------+ +-------+---+---+ | albuterol-ipratropium (DUONEB) | Given | 10/15/19 | 3 mLs | | | | 2.5-0.5 mg/3 mL nebulizer | | 15 10:17 | | | | | solution Starting Tue10/14/14 at | | AM PDT | | | | | 1016, For 1 dose, HANNA, | | | | | | | JAMESON: ethan hernandez, | | | | | | + +-------+ +-------+---+---+ +---+---+ | | | +---+---+ + +-------+ +--------+---+---+ | cyclopentolate (CYCLOGYL) 1% | Given | 10/15/19 | 1 drop | | | | ophthalmic solution 1 drop 1 | | 15 8:09 | | | | | drop, Right Eye, EVERY 10 MIN, | | AM PDT | | | | | First dose on 10/14/14 at | | | | | | | 0745, For 3 doses, May hold third | | | | | | | dose if pupil is dilated at | | | | | | | least 6 mm., Pre-op | | | | | | + +-------+ +--------+---+---+ +-------+ +--------+---+---+ | Given | 10/15/19 | 1 drop | | | | | 15 7:50 | | | | | | AM PDT | | | | +-------+ +--------+---+---+ +---+---+ | | | +---+---+ + +-------+ +--------+---+---+ | flurbiprofen (OCUFEN) 0.03% | Given | 10/15/19 | 1 drop | | | | ophthalmic solution 1 drop 1 | | 15 8:08 | | | | | drop, Right Eye, EVERY 10 MIN, | | AM PDT | | | | | First dose on Tue10/14/14 at | | | | | | | 0745, For 3 doses, May hold third | | | | | | | dose if pupil is at least 6mm., | | | | | | | Pre-op | | | | | | + +-------+ +--------+---+---+ +-------+ +--------+---+---+ | Given | 10/15/19 | 1 drop | | | | | 15 7:49 | | | | | | AM PDT | | | | +-------+ +--------+---+---+ +---+---+ | | | +---+---+ + +---------+ +---+-------+---+ | lactated ringers (LR) infusion | New Bag | 10/15/19 | | 100 | | | at 10-100 mL/hr, Intravenous, | | 15 8:11 | | mL/hr | | | CONTINUOUS, Starting 10/14/14 | | AM PDT | | | | | at 0745, TKO., Pre-op | | | | | | + +---------+ +---+-------+---+ +---+---+ | | | +---+---+ + +-------+ +--------+---+---+ | phenylephrine (KELSEY-SYNEPHRINE) | Given | 10/15/19 | 1 drop | | | | 2.5% ophthalmic solution 1 drop | | 15 8:08 | | | | | 1 drop, Right Eye, EVERY 10 MIN, | | AM PDT | | | | | First dose on 10/14/14 at | | | | | | | 0745, For 3 doses, May hold third | | | | | | | dose if pupil is at least 6mm., | | | | | | | Pre-op | | | | | | + +-------+ +--------+---+---+ +-------+ +--------+---+---+ | Given | 10/15/19 | 1 drop | | | | | 15 7:49 | | | | | | AM PDT | | | | +-------+ +--------+---+---+ +---+---+ | | | +---+---+ + +-------+ +--------+---+---+ | proparacaine (ALCAINE) 0.5% | Given | 10/15/19 | 1 drop | | | | ophthalmic solution 1 drop 1 | | 15 7:47 | | | | | drop, Right Eye, ONCE, Mon | | AM PDT | | | | | 10/14/14 at 0745, For 1 dose, | | | | | | | Pre-op | | | | | | + +-------+ +--------+---+---+ +---+---+ | | | +---+---+ documented in this encounter
--- OUTSIDE RECORDS SUMMARY | ~2019-07-14 | XMS | Encounter Summary ---
Demographics + + + | Address | [address] | | | [place] [address] | + + + | Home Phone | | + + + | Preferred Language | Unknown | + + + | Marital Status | | + + + | Orthodox Affiliation | 1041 | + + + | Race | Unknown | + + + | Ethnic Group | Unknown | + + + Author + + + | Author | [facility] | | | and [place] | + + + | Organization | [facility] | | | and [place] | + + + | Address | Unknown | + + + | Phone | Unavailable | + + + Support + + + + + | Name | Relationship | Address | Phone | + + + + + | Lula Kerr | ECON | [address] | | | | | [place] | | | | | [address] | | + + + + + Care Team Providers + +------+ + | Care Senior Rd Engineer Name | Role | Phone | + +------+ + | Gregory Drummond MD | PCP | | + +------+ + Reason for Visit Diagnostic/Screening (Routine) +--------+--------+ + + + + | Status | Reason | Specialty | Diagnoses / | Referred By | Referred To | | | | | Procedures | Contact | Contact | +--------+--------+ + + + + | Closed | | Radiology | Diagnoses | Schlitt, | [facility] | | | | | Paraspinal | Erich, | [address] | | | | | mass | MD [address] | [place], | | | | | Fracture of | [address] | [place] | | | | | vertebra due | [address] [place] | [address] | | | | | to | [place] | Phone: | | | | | osteoporosis | [address] | [phone] | | | | | , initial | Phone: | Fax: | | | | | encounter | [phone] | [phone] | | | | | (HCC) | Fax: | | | | | | Procedures | [phone] | | | | | | IR Biopsy | | | | | | | Bone Deep | | | | | | | IR Biopsy | | | | | | | Muscle SC | | | | | | | CT GUIDANCE | | | | | | | NEEDLE | | | | | | | PLACEMENT | | | +--------+--------+ + + + + Encounter Details +--------+ + + + + | Date | Type | Department | Care Team | Description | +--------+ + + + + | 07/06/ | Hospital | [facility] | Paul Nielson | Paraspinal mass; | | 2019 | Encounter | MED CTR XRAY [address] | MD [place] [address] | Fracture of vertebra | | | | [address] [place] | [address] [place] | due to | | | | [place] [address] | [place] [address] | osteoporosis, | | | | [phone] | [phone] | initial encounter | | | | | | ([facility]) | +--------+ + + + + Social [...] + + documented as of this encounter Medications at Time of Discharge + + + +---------+ + + | Medication | Sig | Dispensed | Refills | Start | End Date | | | | | | Date | | + + + +---------+ + + | allopurinol | Take 150 mg by mouth | | 0 | | | | (ZYLOPRIM) 300 mg | Daily. | | | | | | tablet | | | | | | + + + +---------+ + + | aspirin 81 MG | Take 81 mg by mouth. | | 0 | | | | tablet | Three times a week | | | | | + + + +---------+ + + | atorvaSTATin | Take 40 mg by mouth | | 0 | | | | (LIPITOR) 40 mg | nightly. | | | | | | tablet | | | | | | + + + +---------+ + + | b complex-vitamin | Take 1 tablet by | 90 | 3 | 09/20/19 | | | c-folic acid | mouth Daily. | tablet | | 19 | | | (NEPHRO-PAOLO) tablet | | | | | | + + + +---------+ + + | celecoxib | Take 200 mg by mouth | | 0 | | | | (CELEBREX) 200 mg | daily. | | | | | | capsule | | | | | | + + + +---------+ + + | doxercalciferol | Inject 1.5 mcg into | | 0 | | | | (HECTOROL) 2 mcg/mL | the vein Three times | | | | | | injection | a week. | | | | | + + + +---------+ + + | fexofenadine | Take 180 mg by mouth | | 0 | | | | (HECTOR) 180 mg | daily. | | | | | | tablet | | | | | | + + + +---------+ + + | furosemide (LASIX) | Take 80 mg by mouth | | 0 | | | | 80 mg tablet | 2 (two) times daily. | | | | | + + + +---------+ + + | gabapentin | Take 1 capsule by | 90 | 0 | 11/14/19 | | | (NEURONTIN) 100 mg | mouth Twice daily | capsule | | 19 | | | capsule | as needed (insomnia | | | | | | | / RLS). | | | | | + + + +---------+ + + | glimepiride | Take 1 tablet by | 30 | 0 | 07/08/20 | | | (AMARYL) 2 MG tablet | mouth every morning | tablet | | 18 | | | | (before breakfast). | | | | | + + + +---------+ + + | midodrine | Take 1 tablet by | | 0 | 04/06/20 | | | (PROAMATINE) 10 MG | mouth Three times a | | | 19 | | | tablet | week. On dialysis | | | | | | | days | | | | | + + + +---------+ + + | omeprazole | Take 40 mg by mouth | | 0 | | | | (PRILOSEC) 40 MG | every morning | | | | | | capsule | (before breakfast). | | | | | + + + +---------+ + + documented as of this encounter Plan of Treatment +--------+ + + + + | Date | Type | Specialty | Care Team | Description | +--------+ + + + + | 07/16/ | Off-Site | Nephrology | Maty Tian | | | 2018 | Visit | | DO [address] [place] [address] | | | | | | [address] | | | | | | [place] | | | | | | [address] | | | | | | | | +--------+ + + + + | 09/25/ | Office | Cardiology | Sheldon Spence | | | 2019 | Visit | | [address] | | | | | | [address] | | | | | | [place] | | | | | | [address] | | | | | | | [...] [place] | | | | | | [address] | | | | | | | [...] + + documented in this encounter Results IR Biopsy Bone Deep (07/06/2019 5:25 [...] + | Diagnosis | + + | Paraspinal mass Other symptoms involving nervous and musculoskeletal systems | + + | Fracture of vertebra due to osteoporosis, initial encounter (HCC) | + + documented in this encounter Administered Medications + +--------+ +--------+------+ + | Medication Order | MAR | Action | Dose | Rate | Site | | | Action | Date | | | | + +--------+ +--------+------+ + | lidocaine 1% injection 10 mL | Given | 07/06/20 | 10 mLs | | Other | | 10 mL, Intradermal, ONCE, Fri | | 19 5:45 | | | (Comment | | 07/06/19 at 1745, For 1 dose | | PM PST | | | ) | + +--------+ +--------+------+ + +---+---+ | | | +---+---+ documented in this encounter Additional Health Concerns + + + + | Infection | Noted Time | Resolved Time | + + + + | Methicillin-resistant Staphylococcus aureus | 10/30/2018 9:33 AM | | | | PDT | | + + + + documented as of this encounter"
--- OUTSIDE RECORDS SUMMARY | ~2019-07-14 | XMS | Encounter Summary ---
Demographics + + + | Address | [address] | | | [place] [address] | + + + | Home Phone | | + + + | Preferred Language | Unknown | + + + | Marital Status | | + + + | Episcopal Affiliation | 1041 | + + + | Race | Unknown | + + + | Ethnic Group | Unknown | + + + Author + + + | Author | [facility] | | | and [place] | + + + | Organization | [facility] | | | and [place] | + + + | Address | Unknown | + + + | Phone | Unavailable | + + + Support + + + + + | Name | Relationship | Address | Phone | + + + + + | Lula Kerr | ECON | [address] | | | | | [place] | | | | | [address] | | + + + + + Care Team Providers + +------+ + | Care Pharm Spec Name | Role | Phone | + +------+ + | Gregory Drummond MD | PCP | | + +------+ + Encounter Details +--------+ + + + + | Date | Type | Department | Care Team | Description | +--------+ + + + + | 06/26/ | Imaging | [facility] | Provider, | | | 2019 | Exam | MED CTR EXTERNAL | MD [address] | | | | | IMAGING | [address] | | | | | [phone] | [place] [address] | | +--------+ + + + + [...] 2019 | Visit | | DO [address] | | | | | | [address] | | | | | | [place] | | | | | | [address] | | | | | | | | +--------+ + + + + | 09/25/ | Office | Cardiology | Sheldon Spence | | | 2019 | Visit | | [address] | | | | | | [address] | | | | | | [place] | | | | | | [address] | | | | | | | [...] [place] | | | | | | [address] | | | | | | | [...] + + documented in this encounter Results XR Chest PA and Lateral (05/15/2019 12:00 [...]
--- OUTSIDE RECORDS SUMMARY | ~2019-07-14 | XMS | Encounter Summary ---
Demographics + + + | Address | [address] | | | [place] [address] | + + + | Home Phone | | + + + | Preferred Language | Unknown | + + + | Marital Status | | + + + | Scientology Affiliation | [id number] | + + + | Race | Unknown | + + + | Ethnic Group | Unknown | + + + Author + + + | Author | [facility] | | | and [place] | + + + | Organization | [facility] | | | and [place] | + + + | Address | Unknown | + + + | Phone | Unavailable | + + + Support + + + + + | Name | Relationship | Address | Phone | + + + + + | Lula Kerr | ECON | [address] | | | | | [place] | | | | | [address] | | + + + + + Care Team Providers + +------+ + | Care [facility] Turner And Former Automatic Name | Role | Phone | + +------+ + | Gregory Drummond MD | PCP | | + +------+ + Encounter Details +--------+ + + + + | Date | Type | Department | Care Team | Description | +--------+ + + + + | 08/17/ | Hospital | [facility] [place] | Katharine Silvina W, | ESRD (end stage | | 2019 | Encounter | [facility] | [address] | renal disease) ([facility]) | | | | [address] [place] | [address] [place] | | | | | [place], [place] | [place] [address] | | | | | [address] | [phone] | | | | | [phone] | | | +--------+ + + + [...] tablet by | 30 | 0 | /15/20 | | | (AMARYL) 2 MG tablet [...] + + + +---------+ + + | | Take 3 mLs by | 360 mL | 0 | 07/08/20 | | | albuterol-ipratropiu | nebulization every 4 | | | 18 | 9 | | m 2.5-0.5 mg/3 mL | hours as needed for | | | | | | SOLN | Wheezing or | | | | | | | Shortness of Breath. | | | | | + + + +---------+ + + | aluminum & | Take 30 mLs by mouth | | 0 | 07/08/20 | | | magnesium | every 6 hours as | | | 18 | 9 | | hydroxide-simethicon | needed for | | | | | | e (MAALOX PLUS | Indigestion. | | | | | | REGULAR STRENGTH) | | | | | | | 200-200-20 mg/5 mL | | | | | | | suspension | | | | | | + + + +---------+ + + | calcium carbonate | Take 2 tablets by | 90 | 0 | 07/08/20 | | | (TUMS) 500 mg | mouth every 2 hours | tablet | | 18 | 9 | | chewable tablet | as needed for | | | | | | | Indigestion. | | | | | + + + +---------+ + + | CARVEDILOL PO | Take 25 mg by mouth | | 0 | | | | | Daily. | | | | 9 | + + + +---------+ + + | celecoxib | Take 200 mg by mouth | | 0 | | | | (CELEBREX) 200 mg | Daily as needed for | | | | 9 | | capsule | Pain. | | | | | + + + +---------+ + + | docusate sodium | Take 100 mg by mouth | 30 | 0 | 07/08/20 | | | (COLACE) 100 MG | 2 times daily. | capsule | | 18 | 9 | | capsule | | | | | | + + + +---------+ + + | eplerenone | Take 25 mg by mouth | | 0 | | | | (INSPRA) 25 mg | Daily. | | | | 9 | | tablet | | | | | | + + + +---------+ + + | ERTUGLIFLOZIN | Take 10 mg by mouth | | 0 | | | | L-PYROGLUTAMICAC PO | Daily. | | | | 9 | + + + +---------+ + + | fexofenadine | Take 180 mg by mouth | | 0 | | | | (HECTOR) 180 mg | Daily as needed for | | | | 9 | | tablet | Allergies. | | | | | + + + +---------+ + + | furosemide (LASIX) | Take 2 tablets by | 40 | 0 | 07/08/20 | | | 80 mg tablet | mouth 2 times daily. | tablet | | 18 | 9 | + + + +---------+ + + | glipiZIDE | Take 5 mg by mouth 2 | | 0 | | | | (GLUCOTROL) 5 mg | times daily. | | | | 9 | | tablet | | | | | | + + + +---------+ + + | insulin lispro | Inject 0-6 Units | 3 mL | 0 | 07/08/20 | | | (HUMALOG KWIKPEN) | under the skin 4 | | | 18 | 9 | | 100 units/mL | times daily (with | | | | | | injection (pen) | meals and nightly). | | | | | | | Blood Glucose (BG) < | | | | | | | | | | | | | | 150: | | | | | | | None BG | | | | | | | 150-200: DAY: 1 | | | | | | | units. NIGHT: 0 | | | | | | | units BG 201-250: | | | | | | | DAY: 2 | | | | | | | units. NIGHT: 1 | | | | | | | units BG 251-300: | | | | | | | DAY: 3 | | | | | | | units. NIGHT: 2 | | | | | | | units BG 301-350: | | | | | | | DAY: 4 | | | | | | | units. NIGHT: 3 | | | | | | | units BG 351-400: | | | | | | | DAY: 5 | | | | | | | units. NIGHT: 4 | | | | | | | units BG | | | | | | | > 400 : DAY: | | | | | | | 6 units. NIGHT: 5 | | | | | | | units | | | | | + + + +---------+ + + | lisinopril | Take 5 mg by mouth | | 0 | | | | (PRINIVIL, ZESTRIL) | Daily. | | | | 9 | | 5 mg tablet | | | | | | + + + +---------+ + + | metFORMIN | Take 1,000 mg by | | 0 | | | | (GLUCOPHAGE) 1000 MG | mouth 2 times daily. | | | | 9 | | tablet | | | | | | + + + +---------+ + + | polyethylene | Take 1 diluted | | 0 | 07/08/20 | | | glycol (MIRALAX) | packet by mouth | | | 18 | 9 | | packet | Daily as needed for | | | | | | | Constipation. | | | | | + + + +---------+ + + | SITagliptin | Take 100 mg by mouth | | 0 | | | | (JANUVIA) 100 mg | Daily. | | | | 9 | | tablet | | | | | | + + + +---------+ + + | traZODone | Take 1 tablet by | 30 | 0 | 07/08/20 | | | (DESYREL) 50 mg | mouth nightly as | tablet | | 18 | 9 | | tablet | needed for Insomnia. | | | | | + + + +---------+ + + | triamcinolone | Apply 1 Application | | 0 | | | | (KENALOG) 0.1% cream | topically Twice | | | | 9 | | | daily as needed for | | | | | | | Rash. | | | | | + + + +---------+ + + | Triamcinolone | 1-2 sprays by Nasal | | 0 | | | | Acetonide (NASACORT | route Daily. | | | | 9 | | AQ NA) | | | | | | + + + +---------+ + + | warfarin | Take 5 mg by mouth | | 0 | | | | (COUMADIN) 5 mg | Daily. | | | | 9 | | tablet | | | | [...] 2018 | Visit | | DO Rolan [address] [place] [address] | | | | | | [address] | | | | | | [place] | | | | | | [address] | | | | | | | | +--------+ + + + + | 09/25/ | Office | Cardiology | Sheldon Spence | | | 2019 | Visit | | MD [address] | | | | | | [facility] | | | | | | [place] | | | | | | [address] | | | | | | | | +--------+ + + + + | 09/25/ | Procedure | Cardiology | | | | 2019 | visit | | | | +--------+ + + + + | 11/28/ | Office | Cardiology | Natalie Luo DO | | | 2019 | Visit | | [address] | | | | | | [place] | | | | | | [address] | | | | | | | | +--------+ + + + + documented as of this encounter Procedures + +--------+ + + + | Procedure Name | Priori | Date/Time | Associated Diagnosis | Comments | | | ty | | | | + +--------+ + + + | VAS UPPER EXTREMITY | Routin | 08/17/2018 | ESRD (end stage | Results for this | | VEIN MAPPING | e | 4:37 PM | renal disease) (HCC) | procedure are in the | | BILATERAL | | PST | | results section. | + +--------+ + + + documented in this encounter Results VAS Upper Extremity Vein Mapping Bilat (08/17/2018 4:37 PM PST) + + | Specimen | + + | | + + + + + | Narrative | Performed At | + + + | EXAM:VAS UPPER EXTREMITY VEIN MAPPING BILATERAL CLINICAL | [facility] | | HISTORY: AV Fistula Creation COMPARISON: None. FINDINGS: | | | Imaging is performed for upper extremity vein mapping. Please refer | | | to the scanned in image for details regarding vessel sizes. There | | | are no identified thromboses. IMPRESSION - Vein mapping | | | study. Dictated and Signed by: Chet Cuevas MD | | | Electronically signed: 08/17/2018 5:50 PM | | + + + + + | Procedure Note | + + | Marcus May Results In - 08/17/2018 5:53 PM PST EXAM:VAS UPPER EXTREMITY VEIN MAPPING | | BILATERALCLINICAL HISTORY: AV Fistula CreationCOMPARISON: None.FINDINGS: Imaging is | | performed for upper extremity vein mapping. Please referto the scanned in image for | | details regarding vessel sizes.There are no identified thromboses.IMPRESSION -Vein | | mapping study.Dictated and Signed by: Chet Cuevas MD Electronically signed: | | 08/17/2018 5:50 PM | |FINDINGS: Imaging is performed for upper extremity vein mapping. Please refer | |to the scanned in image for details regarding vessel sizes. | | | |There are no identified thromboses. | | | |IMPRESSION - | | | |Vein mapping study. | | | |Dictated and Signed by: Chet Cuevas MD | | Electronically signed: 08/17/2018 5:50 PM | + + + +---------+ + + [...]
--- OUTSIDE RECORDS SUMMARY | ~2019-07-14 | XMS | Encounter Summary ---
Demographics + + + | Address | [address] | | | [place] [address] | + + + | Home Phone | | + + + | Preferred Language | Unknown | + + + | Marital Status | | + + + | Roman Catholic Affiliation | 1041 | + + + | Race | Unknown | + + + | Ethnic Group | Unknown | + + + Author + + + | Author | [facility] | | | and [place] | + + + | Organization | [facility] | | | and [place] | + + + | Address | Unknown | + + + | Phone | Unavailable | + + + Support + + + + + | Name | Relationship | Address | Phone | + + + + + | Lula Kerr | ECON | [address] | | | | | [place] | | | | | [address] | | + + + + + Care Team Providers + +------+ + | Care Lead Solutions Architect Name | Role | Phone | + +------+ + | Jaya Drummond MD | PCP | | + +------+ + Reason for Visit + + + | Reason | Comments | + + + | Follow-up | follow up | + + + Follow Up (Routine) +--------+--------+ + + + + | Status | Reason | Specialty | Diagnoses / | Referred By | Referred To | | | | | Procedures | Contact | Contact | +--------+--------+ + + + + | Closed | | Cardiology | Diagnoses | Luo, | Luo, | | | | | fu | DO Natalie | DO Natalie | | | | | Procedures | [address] | | | | | OFFICE VISIT | [address] | [address] | | | | | REGULAR | [place] | [place], [place] | | | | | | [place], [place] | [address] Phone: | | | | | | [address] | [phone] | | | | | | Phone: | Fax: | | | | | | [phone] | [phone] | | | | | | Fax: | | | | | | | [phone] | | +--------+--------+ + + + + Encounter Details +--------+---------+ + + + | Date | Type | Department | Care Team | Description | +--------+---------+ + + + | 05/17/ | Office | [facility] | Natalie Luo DO | Ischemic | | 2019 | Visit | CARDIOLOGY [place] | [address] | cardiomyopathy | | | | [address] | [place], [place] | (Primary Dx); [place] | | | | [address] | [address] | (ventricular | | | | [place], [place] | | tachycardia) (HCC); | | | | [address] | | Left bundle branch | | | | [phone] | | block (LBBB); | | | [...] | | | | | on dialysis (HCC); | | | | | | Hx of CABG; AICD | | | | | | (automatic | | | | | | cardioverter/defibri | | | | | | llator) present | +--------+---------+ + + + Social History + + [...] + + + | Blood Pressure | 90/38 | 05/17/2019 2:35 PM | | | | | PDT | | + + + + + | Pulse | 70 | 05/17/2019 2:35 PM | | | | | PDT | | + + + + + | Temperature | - | - | | + + + + + | Respiratory Rate | - | - | | + + + + + | Oxygen Saturation | 94% | 05/17/2019 2:35 PM | | | | | PDT | | + + + + + | Inhaled Oxygen | - | - | | | Concentration | | | | + + + + + | Weight | 103.4 kg (228 lb) | 05/17/2019 2:35 PM | | | | | PDT | | + + + + + | Height | 170.2 cm (5' 7") | 05/17/2019 2:35 PM | | | | | PDT | | + + + + + | Body Mass Index | 35.71 | 05/17/2019 2:35 PM | | | | | PDT | | + + + + + documented in this encounter Progress Notes Natalie Luo DO - 05/17/2019 2:40 PM PDT [facility] Cardiology Follow Up Note Reason for Consultation: heart failure Requesting Physician: Jaya Drummond History Obtained From: patient HISTORY OF PRESENT ILLNESS: Cardiac Problem List 1. Ischemic Cardiomyopathy - 09/22/10 TTE EF 30% - 06/17/18 TTE EF 35-40%, RVSP 80-85mmHg, mod-severe TR 2. History 3rd degree AV block - 02/20/2007 PPM placed - 12/25/2009 upgrade to Webtabtr[employer] bi-v ICD - 01/12/18 generator change with [employer]'s generator 3. Coronary artery disease - [place] 1997: s/p thrombolytics/PCI - NSTEMI 11/23/09: severe 3 vessel CAD: serial 80-90% RCA stenosis, 80-90% LM with 99% ostial LAD and cx stenosis.LVEF 30%. - 4 vessel CABGS: 11/23/09 with IABP periop. 4. Atrial fibrillation - [id number] score 5 (Age, CHF, HTN, DMII, Vasc disease) - GI bleed in 2016- taken off coumadin 5. LBBB 6. HTN Non Cardiac Problem List 7. DM II 8. ESRD on HD 9. EVITA- not on CPAP 10. Obesity The patient is a 73-year-old male presents to the cardiology office to establish for the ab ove past medical histories. He previously followed and last saw him on 01/05/2018. The patient had a recent hospitalization To [facility] on 06/26/18 with pneumonia, septic shock, and HTN. He was initiated on hemodialysis as an inpatient. Right IJ tunneled catheters plac ed during that admission. He was discharged to a [facility] facility on 07/08/18. He salvador s started on outpatient hemodialysis. The patient recently had a right brachial AV fistula p laced in anticipation of hemodialysis. The patient reports that since his most recent hospitalization, he has been doing well. He completed therapy and is back at home. He has been going to dialysis M, W, F. When he first was discharged from the hospital, he had a lot of LE swelling. With dialysis, this has gradu ally improved. He has a stasis ulcer on his left ankle which is healing. He has been very in active since he has been home. He walks with a walker due to balance issues. He denies any s hortness of breath lately. He denies any exertional chest pains. He denies any orthopnea or PND. He denies any palpitations or ICD firing. He has a history of EVITA, he is non compliant with CPAP because he can not tolerate the mask. Interim History I last saw the patient on 10/19/2018. At that time, I referred him to EP for management of his [facility]. He had a hospitalization on 10/26/2018 where he was admitted at [facility] for pneumonia and was found to have an elevated troponin. Nuclear stress test at t hat time demonstrated a medium-sized reversible defect in the mid anterior distal and apical and anterior septal regions, ejection fraction was 36 percent. The patient was evaluated by Dr. Damian, who felt that there was no evidence of active ischemia. He recommended [facility] to follow the patient medically with consideration of possible catheterization and the pa tient was stabilized. He established with Dr. Spence on 11/22/2018. They had discussed a Watchman device, but the patient was not interested. The patient was noted to have episode s of ventricular tachycardia and ATP on remote device interrogation. I discussed with Dr. Spence and the patient was set up for a coronary angiogram; however, after discussing with his primary care physician, the patient decided against coronary angiography. He followed up with Sandy Leach on 12/12/2018 and it was noted that several of his cardiac medic ations had been discontinued. He followed up with Dr. Spence on 03/21/2019, who again rec ommended a coronary angiography, but the patient declined. He also refused beta-cheli th erapy. Recently, the patient reports that he has been doing well. He ambulates today with a walke r instead of in a wheelchair. He has been going to cardiac rehab twice per week including r iding bike and doing some weight training. He denies any recent episodes of chest pains or shortness of breath. He continues to undergo dialysis 3 times per week. With dialysis, he has been taking midodrine to help support his blood pressure during dialysis sessions. He denies any shocks from his ICD. He denies any lower extremity swelling, but does admit to s ome shortness of breath at night. He is supposed to be on CPAP therapy, but is unable to to lerate it. He denies any episodes of lightheadedness, dizziness, syncope. Review of Systems Constitutional: Negative for fatigue. HENT: Negative for nosebleeds. Eyes: Negative for visual disturbance. Respiratory: Negative for cough and shortness of breath. Cardiovascular: see HPI Gastrointestinal: Negative for nausea, vomiting, abdominal pain and blood in stool. He has a history of GI bleed previously. Genitourinary: Negative for hematuria or dysuria. He has ESRD. Musculoskeletal: Positive for myalgias, back pain and arthralgias. Skin: Negative for color change. Neurological: Negative for dizziness, syncope and numbness. Hematological: Does not bruise/bleed easily. Psychiatric/Behavioral: The patient is not nervous/anxious. PAST MEDICAL & SURGICAL HISTORY Past Medical History Diagnosis Date Acute kidney injury (HCC) Acute metabolic encephalopathy Acute on chronic systolic heart failure (HCC) Arthralgia Cellulitis of left lower extremity Chest pain Congestive heart failure (HCC) Hypertension Obesity Old myocardial infarction Pneumonia due to infectious organism Severe sepsis with septic shock (HCC) Type 2 diabetes mellitus (HCC) Past Surgical History Procedure Laterality Date BACK SURGERY CARDIAC SURGERY CORONARY ARTERY BYPASS GRAFT KNEE SURGERY Right MEDICATIONS Current Outpatient Medications on File Prior to Visit Medication Sig Dispense Refill allopurinol (ZYLOPRIM) 300 [...] capsule Take 200 mg by mouth daily. fexofenadine (HECTOR) 180 mg tablet Take 180 [...] by mouth every morning (before breakfast ). No current facility-administered medications on file prior to visit. Allergies Allergies Allergen Reactions Morphine Other (See Comments) Became really mean FAMILY HISTORY History reviewed. No pertinent family history. SOCIAL HISTORY Social History Social History Marital status: Spouse name: N/A Number of children: N/A Years of education: N/A Occupational History Not on file. Social History Main Topics Smoking status: Former Smoker Smokeless tobacco: Former User Alcohol use Yes Comment: 1-2 beers in the summer, socially. Drug use: No Sexual activity: Not on file Other Topics Concern Not on file Social History Narrative No narrative on file PHYSICAL EXAM Vitals: 05/17/19 1435 BP: (!) 90/38 Pulse: 70 SpO2: 94% Weight: 103.4 kg (228 lb) Height: 1.702 m (5' 7") Physical Exam GENERAL: Well developed, well nourished, in no distress. Appears approximately stated age . HEENT: Normocephalic, atraumatic. EYES: PERRL, sclerae anicteric, no xanthelsasmas NECK: Bullish neck, no lymphadenopathy, thyromegaly, bruits. Carotid pulses are 2+ bila terally LUNGS: Clear bilaterally, with no rales, rhonchi or wheezing noted, respirations unlabored HEART: Nondisplaced PMI, RRR, S1, S2 normal. II/ systolic murmur, no rubs or gallops no loly. ABDOMEN: Soft, nontender, no organomegaly, masses or bruits. Bowel sounds are normal in a ll 4 quadrants. EXTREMITIES: 2+ b/l LE edema. Radial pulses 2+ bilaterally. DP and PT pulses are 2+ bilat erally. SKIN: Warm and dry, capillary refill is normal, no lesions. NEUROLOGIC: Awake, alert and oriented x 3. No focal motor deficits. PSYCHIATRIC: Appropriate, affect appears normal DATA Results for DAVID KERR ( ) as of 05/21/2019 08:36 Ref. Range 11/01/2018 04:49 WBC Latest Ref Range: 4.0 - 11.0 K/uL 5.1 RBC COUNT Latest Ref Range: 4.30 - 5.70 M/uL 3.96 (L) TOTAL Hemoglobin Latest Ref Range: 13.5 - 18.0 g/dL 12.4 (L) Hematocrit Latest Ref Range: 40.0 - 51.0 % 38.1 (L) MCV Latest Ref Range: 83.0 - 101.0 fL 96.2 MCH Latest Ref Range: 28.0 - 35.0 pg 31.3 MCHC Latest Ref Range: 32.0 - 36.0 g/dL 32.5 RDW-CV Latest Ref Range: <15.0 % 14.9 RDW-SD Latest Ref Range: 35.1 - 46.3 fL 53.0 (H) Platelet Count Latest Ref Range: 140 - 440 K/uL 119 (L) Results for DAVID KERR ( ) as of 05/21/2019 08:36 Ref. Range 11/01/2018 06:21 Na Latest Ref Range: 136 - 145 mmol/L 131 (L) K Latest Ref Range: 3.4 - 5.1 mmol/L 4.5 Chloride Latest Ref Range: 98 - 107 mmol/L 101 Carbon dioxide Latest Ref Range: 20 - 31 mmol/L 21 Anion Gap Latest Ref Range: 3 - 16 mmol/L 9 Glucose Latest Ref Range: 60 - 106 mg/dL 142 (H) BUN Latest Ref Range: 9 - 23 mg/dL 56 (H) Creatinine Latest Ref Range: 0.70 - 1.30 mg/dL 5.44 (H) BUN/Creatinine Ratio Unknown 10.3 EGFR IF NOT Latest Ref Range: >=60 mL/min/1.73m2 10 (L) Calcium Latest Ref Range: 8.7 - 10.4 mg/dL 9.3 Magnesium Latest Ref Range: 1.6 - 2.6 mg/dL 1.8 Phosphorus Latest Ref Range: 2.4 - 5.1 mg/dL 6.6 (H) EK10/19/18 ordered and reviewed by myself. Atrial fibrillation, V-paved 70BPM. Last Echo: 06/17/18 1.Moderate biatrial dilatation. 2.Moderate left atrial dilatation with normal wall thickness.There is a moderate global hypokinesis of left ventricle.Overall, left ventricular systolic function is moderately decreased.LVEF is 35-40%. 3.Moderately dilated right ventricular cavity with normal wall thickness and a mildly reduced right ventricular systolic function. 4.Severe pulmonary hypertension with a peak systole pressure of 80-85 mmHg. 5.Mildly thickened and calcified trileaflet aortic valve with adequate opening. 6.Mildly thickened and calcified mitral valve with the trace mitral valve regurgitation. 7.Moderate to severe central tricuspid valve regurgitation. 8.Dilated IVC without respiratory collapse suggesting fluid retention. 02/20/2007 INTERPRETATION 1. Technically this is a difficult study. The rhythm is sinus. 2. Suggestive of coronary artery disease (CAD) and ischemic cardiomyopathy. Left ventricle is mildly dilated (left ventricular end-diastolic diameter (LVEDD) is 58 mm). There is severe anteroseptal hypokinesis. The reader estimates the ejection fraction at 40% to 45%. Right ventricle is grossly normal. 3. The mitral valve is thickened. Tricuspid valve is grossly normal. The aortic and pulmonic valve is poorly visualized. 4. Moderate biatrial enlargement (left atrium and the parasternal lung axis measures 50 mm). The aortic root is also mildly dilated (38 mm). 5. No obvious intracardiac masses or pericardial effusions observed. 6. The inferior vena cava is grossly normal. 7. Pulsed wave (PW), continuous wave (CW) and color-flow Doppler reveal mild mitral regurgitation (MR). Last stress test: 10/26/18 Medium sized reversible defect in the mid anterior distal and apical and anterior septal re gions. Severe hypokinesis of the distal anterior wall with gated ejection fraction of 36%. Last cath: Carotid US: AAA screening: Lower extremity US: OTHERS: Last device interrogation INTERROGATION RESULTS: Please see the full interrogation report attached to the device interrogation order. 1 month post ICD generator change device check via wireless Latitude. Leads are chronic. No therapies delivered, no non-sustained events noted. Patient is currently in atrial fibrillation and has been 100% of the time since implant. He is on ASA 81 mg, did not tolerate OAC. Auto lead testing appears stable. RVP = 95%, LVP = 99%. HR histogram shows very slight improvement to sensor changes made at 01/12/18 device check. Patient lives in [place]. Dr Morse would like to see pt in May for f/u visit and dev ice check (hopefully before weather turns bad). Further device f/u via remote monitoring is okay per Dr Morse and Dr Delgado. Testing performed by: Sasha White, Aerial Photogrammetrist 02/15/18 12:58 IMPRESSION: 1. Normal ICD function. 2. Atrial fibrillation/flutter noted with an average ventricular rate in the 70's. The julian ent does have a history of atrial fibrillation. The patient is currently on ASA 81 mg, did n ot tolerate OAC. 3. No VT/VF therapies have been given since the last interrogation. ASSESSMENT & PLAN 1. Ischemic Cardiomyopathy - 09/22/10 TTE EF 30% - 06/17/18 TTE EF 35-40%, RVSP 80-85mmHg, mod-severe TR - 10/26/18 stress test- medium size, reversible defect in the mid anterior distal and apical and anterior septal regions. There is severe hypokinesis of the distal anterior wall with ga loly ejection fraction of 36%. 2. History 3rd degree AV block - 02/20/2007 PPM placed - 12/25/2009 upgrade to Medtronic bi-v ICD - 01/12/18 generator change with [employer] generator 3. Coronary artery disease - [place] 1997: s/p thrombolytics/PCI - NSTEMI 11/23/09: severe 3 vessel CAD: serial 80-90% RCA stenosis, 80-90% LM with 99% ostial LAD and cx stenosis.LVEF 30%. - 4 vessel CABGS: 11/23/09 with IABP periop. 4. Chronic Atrial fibrillation - [id number] score 5 (Age, CHF, HTN, DMII, Vasc disease) - GI bleed in 2016- taken off coumadin 5. LBBB 6. HTN 7. DM II 8. ESRD on HD 9. EVITA- not on CPAP 10. Obesity 11. VT - The patient is a 73 yo male with the above past medical histories who presents to follow up. He had a hospitalization 10/2018 during which she was found to have an elevated troponin while hospitalized for a pneumonia. Nuclear stress test at that time was concerning for po ssible anterior wall ischemia. He followed up with Dr. Spence who noted episodes of ventr icular tachycardia and ATP on routine ICD interrogation. Coronary angiography was recommend ed and the patient was set up for this. After discussing with his primary care physician, t he patient refused cardiac catheterization. Today, he is doing fairly well, going to cardiac rehab twice weekly without any anginal symptoms. His blood pressure is noted to be low and he has had issues with hypotension during dialysis sessions. He has refused beta-cheli t herapy and he has been taken off all afterload reducers due to hypotension. He refuses anti coagulation for his history of atrial fibrillation, watchman device has been discussed with EP which he also refuses. - Continue lipitor 40mg po daily - Continue ASA 81mg po daily - The patient is to continue cardiac rehab - Follow up with EP as scheduled - Follow up in 6 months, sooner if symptoms arise Thank you for allowing me to participate in the care of this patient. Primary Care Physician: JAYA Luo DO documented in this enco unter Plan of Treatment +--------+ + + + + | Date | Type | Specialty | Care Team | Description | +--------+ + + + + | 07/16/ | Off-Site | Nephrology | Maty Tian | | | 2018 | Visit | | DO [address] | | | | | | [place], [address] | | | | | | [place] | | | | | | [address] | | | | | | | | +--------+ + + + + | 09/25/ | Office | Cardiology | Sheldon Spence | | | 2019 | Visit | | MD [address] | | | | | | [address] [place] | | | | | | [place] | | | | | | [address] | | | | | | | [...] [place] | | | | | | [address] | | | | | | | | +--------+ + + + + documented as of this encounter Procedures + +--------+ + + + | Procedure Name | Priori | Date/Time | Associated Diagnosis | Comments | | | ty | | | | + +--------+ + + + | DEVICE INTERROGATION | | 03/21/2019 | | Results for this | | - EXTERNAL SCAN | | 12:00 AM | | procedure are in the | | | | PDT | | results section. | + +--------+ + + + documented in this encounter Results DEVICE INTERROGATION - EXTERNAL SCAN (03/21/2019 12:00 AM PDT) + + + | Narrative | Performed At | + + + | Ordered by an | | | unspecified provider. | | + + + documented in this encounter Visit Diagnoses + + | Diagnosis | + + | Ischemic cardiomyopathy - Primary Other specified forms of chronic ischemic heart | | disease | + + | VT (ventricular tachycardia) (HCC) Paroxysmal ventricular tachycardia | + + | Left bundle branch block (LBBB) | + + | Persistent atrial fibrillation Atrial fibrillation | + + | Arteriosclerotic cardiovascular disease Unspecified cardiovascular disease | + + | Pulmonary hypertension, Severe Other chronic pulmonary heart diseases | + + | ESRD (end stage renal disease) on dialysis (HCC) End stage renal disease | + + | Hx of CABG Postsurgical aortocoronary bypass status | + + | AICD (automatic cardioverter/defibrillator) present Automatic implantable cardiac | | defibrillator in situ | + + documented in this encounter Additional Health Concerns + + + + | Infection | Noted Time | Resolved Time | + + + + | Methicillin-resistant Staphylococcus aureus | 10/30/2018 9:33 AM | | | | PDT | | + + + + documented as of this encounter
--- OUTSIDE RECORDS SUMMARY | ~2019-07-14 | XMS | Encounter Summary ---
Demographics + + + | Address | [address] | | | [place] [address] | + + + | Home Phone | | + + + | Preferred Language | Unknown | + + + | Marital Status | | + + + | Episcopalian Affiliation | 1041 | + + + | Race | Unknown | + + + | Ethnic Group | Unknown | + + + Author + + + | Author | [facility] | | | and [place] | + + + | Organization | [facility] | | | and [place] | + + + | Address | Unknown | + + + | Phone | Unavailable | + + + Support + + + + + | Name | Relationship | Address | Phone | + + + + + | Lula Kerr | ECON | [address] | | | | | [place] | | | | | [address] | | + + + + + Care Team Providers + +------+ + | Care Sand Plant Attendant Name | Role | Phone | + +------+ + | Gregory Drummond MD | PCP | | + +------+ + Encounter Details +--------+ + + + + | Date | Type | Department | Care Team | Description | +--------+ + + + + | 04/06/ | Orders Only | [facility] [place] | Katharine Silvina W, | | | 2019 | | NEPHROLOGY [address] | MD [address] | | | | | [address] | [address] [place] | | | | | [place], [place] | [place] [address] | | | | | [address] | [phone] | | | | | [phone] | | | +--------+ + + + [...] | | Former User | | | 12/20/20 | | | | | 18 | [...] | Visit | | DO [address] | | | | | | [address] | | | | | | [place] | | | | | | [address] | | | | | | | | +--------+ + + + + | 09/25/ | Office | Cardiology | Sheldon Spence | | | 2019 | Visit | | [address] | | | | | | [place] | | | | | | [place] | | | | | | [address] | | | | | | | [...] [place] | | | | | | [address] | | | | | | | [...]
--- OUTSIDE RECORDS SUMMARY | ~2019-07-14 | XMS | Encounter Summary ---
Demographics + + + | Address | [address] | | | [place] [address] | + + + | Home Phone | | + + + | Preferred Language | Unknown | + + + | Marital Status | | + + + | Jain Affiliation | 1041 | + + + | Race | Unknown | + + + | Ethnic Group | Unknown | + + + Author + + + | Author | [facility] | | | and [place] | + + + | Organization | [facility] | | | and [place] | + + + | Address | Unknown | + + + | Phone | Unavailable | + + + Support + + + + + | Name | Relationship | Address | Phone | + + + + + | Lula Kerr | ECON | [address] | | | | | [place] | | | | | [address] | | + + + + + Care Team Providers + +------+ + | Care [employer] Chief Creative Officer Name | Role | Phone | + [...] | | | | disease) on | [place], [address] | | | | | dialysis | [place] | [place], | | | | | ([facility]) | [address] | [place] [address] | | | | | Procedures | Phone: | Phone: | | | | | [place] ESRD | [phone] | [phone] | | | | | RELATED SVC | Fax: | Fax: | | | | | MONTHLY | [phone] | [phone] | | | | | 20&/> YR OLD | | | | | | | 4/> VISITS | | | + +--------+ + + + + Encounter Details +--------+ + + + + | Date | Type | Department | Care Team | Description | +--------+ + + + + | 03/19/ | Off-Site | [facility] | Maty Tian | ESRD (end stage | | 2019 | Visit | NEPHROLOGY [address] | M, DO [address] | renal disease) on | | | | [address] | [place], [address] | dialysis (HCC) | | | | [place], [place] | [place], [place] | (Primary Dx) | | | | [address] | [address] | | | | | [phone] | | | +--------+ + + + [...] documented as of this encounter Progress Notes Maty Tian DO - 03/19/2019 10:30 AM PDT[Did not see.] documented in this encounter Plan of Treatment +--------+ + + + + | Date | Type | Specialty | Care Team | Description | +--------+ + + + + | 07/16/ | Off-Site | Nephrology | Maty Tian | | | 2018 | Visit | | DO [address] | | | | | | [address] | | | | | | [place] | | | | | | [phone] | | | | | | | | +--------+ + + + + | 09/25/ | Office | Cardiology | Sheldon Spence | | | 2019 | Visit | | [address] | | | | | | [place] | | | | | | [place] | | | | | | [address] | | | | | | | | +--------+ + + + + | 09/25/ | Procedure | Cardiology | | | | 2019 | visit | | | | +--------+ + + + + | 11/28/ | Office | Cardiology | Natalie Luo DO | | | 2019 | Visit | | [address] | | | | | | [address] [address] [place], [place] | | | | | | [address] | | | | | | | [...]
--- OUTSIDE RECORDS SUMMARY | ~2019-07-14 | XMS | Encounter Summary ---
Demographics + + + | Address | [address] | | | [place] [address] | + + + | Home Phone | | + + + | Preferred Language | Unknown | + + + | Marital Status | | + + + | Rastafarian Affiliation | [id number] | + + + | Race | Unknown | + + + | Ethnic Group | Unknown | + + + Author + + + | Author | [facility] | | | and [place] | + + + | Organization | [facility] | | | and [place] | + + + | Address | Unknown | + + + | Phone | Unavailable | + + + Support + + + + + | Name | Relationship | Address | Phone | + + + + + | Lula Kerr | ECON | [address] | | | | | [place] | | | | | [phone] | | + + + + + Care Team Providers + +------+ + | Care Family Mediator Name | Role | Phone | + +------+ + | Gregory Drummond MD | PCP | | + +------+ + Reason for Visit + + + | Reason | Comments | + + + | Cough | | + + + | Shortness of Breath | | + + + | Fever (9 Weeks To 74 | | | Years) | | + + + Auth/Cert +--------+--------+ + + + + | Status | Reason | Specialty | Diagnoses / | Referred By | Referred To | | | | | Procedures | Contact | Contact | +--------+--------+ + + + + | | | | Diagnoses | | | | | | | Elevated | | | | | | | troponin | | | | | | | Sepsis, due | | | | | | | to | | | | | | | unspecified | | | | | | | organism | | | | | | | Pneumonia | | | | | | | due to | | | | | | | infectious | | | | | | | organism, | | | | | | | unspecified | | | | | | | laterality, | | | | | | | unspecified | | | | | | | part of lung | | | | | | | | | | +--------+--------+ + + + + Encounter Details +--------+ + + + + | Date | Type | Department | Care Team | Description | +--------+ + + + + | 10/26/ | Hospital | [facility] | Brian Snyder MD | Pneumonia due to | | 2019 - | Encounter | [facility] | [address] | infectious organism, | | | | [address] | [place] | unspecified | | 11/01/ | | [place] [address] | [id number] | laterality, | | 2019 | | [phone] | | unspecified part of | | | | | Hali Daniel | lung (Primary Dx); | | | | | MD Marcelo [address] | Sepsis, due to | | | | | [address] [place] | unspecified organism | | | | | [place] [id number] | (HCC); Elevated | | | | | [phone] | troponin; Acute | | | | | | respiratory failure | | | | | | with hypoxia ([facility]); | | | | | | Clinical sepsis | | | | | | ([facility]); ESRD (end | | | | | | stage renal disease) | | | | | | on dialysis ([facility]); | | | | | | Ischemic | | | | | | cardiomyopathy; HCAP | | | | | | | | | | | | (healthcare-associat | | | | | | ed pneumonia); ESRD | | | | | | (end stage renal | | | | | | disease) ([facility]); | | | | | | Coronary artery | | | | | | disease, angina | | | | | | presence | | | | | | unspecified, | | | | | | unspecified vessel | | | | | | or lesion type, | | | | | | unspecified whether | | | | | | [place] or | | | | | | transplanted heart; | | | | | | Non-insulin | | | | | | dependent type 2 | | | | | | diabetes mellitus | | | | | | (HCC); Gout, | | | | | | unspecified cause, | | | | | | unspecified | | | | | | chronicity, | | | | | | unspecified site; | | | | | | Hyperlipidemia, | | | | | | unspecified | | | | | | hyperlipidemia type; | | | | | | EVITA (obstructive | | | | | | sleep apnea) | +--------+ + + + + Social [...] + + + | Blood Pressure | 165/75 | 11/01/2018 9:35 AM | | | | | PDT | | + + + + + | Pulse | 70 | 11/01/2018 10:05 AM | | | | | PDT | | + + + + + | Temperature | 36.6 C (97.8 F) | 11/01/2018 9:35 AM | | | | | PDT | | + + + + + | Respiratory Rate | 20 | 11/01/2018 10:05 AM | | | | | PDT | | + + + + + | Oxygen Saturation | 93% | 11/01/2018 10:05 AM | | | | | PDT | | + + + + + | Inhaled Oxygen | - | - | | | Concentration | | | | + + + + + | Weight | 103.2 kg (227 lb 8.2 | 11/01/2018 5:20 AM | | | | oz) | PDT | | + + + + + | Height | 170.2 cm (5' 7") | 10/26/2018 12:51 PM | | | | | PDT | | + + + + + | Body Mass Index | 35.63 | 10/26/2018 12:51 PM | | | | | PDT | | + + + + + documented in this encounter Discharge Summaries Richard Bell MD - 11/01/2018 10:02 AM PDTFormatting of this note might be different fr om the original. [facility]PITAL[facility] DISCHARGE SUMMARY Pt. Name/Age/: David Romero Jr. Cirilo 73 y.o. 1945 Date of Admission: 10/26/2018 Date of Discharge: 11/01/2018 Admitting Physician: Hali Daniel MD Primary Care Provider: Gregory Drummond MD Discharging Physician: Richard Bell MD DISCHARGE DIAGNOSES: Active Hospital Problems Diagnosis Pneumonia ESRD (end stage renal disease) on dialysis Clinical sepsis Acute respiratory failure with hypoxia Diabetes mellitus type II, ORAL Control Resolved Hospital Problems No resolved problems to display. DISCHARGE MEDICATIONS: Discharge Medications New Medications Details doxycycline 100 mg tablet Take 1 tablet by mouth 2 times daily for 7 days. Indications: Community Acquired Pneumonia aka: VIBRAMYCIN levoFLOXacin 500 mg tablet Take 1 tablet by mouth Every other day for 6 days. Indications: [facility]-Associated Pneu monia aka: LEVAQUIN Start: 11/02/2018 Unchanged Medications Details Acetaminophen 500 MG Caps Take 1,000 mg by mouth every 6 hours as needed. allopurinol 300 mg tablet Take 150 mg by mouth Daily. aka: ZYLOPRIM aspirin 81 MG tablet Take 81 mg by mouth. Three times a week atorvaSTATin 40 mg tablet Take 40 mg by mouth nightly. aka: LIPITOR b complex-vitamin c-folic acid tablet Take 1 tablet by mouth Daily. fexofenadine 180 mg tablet Take 180 mg by mouth Daily as needed for Allergies. aka: HECTOR furosemide 80 mg tablet Take 80 mg by mouth 2 times daily. aka: LASIX glimepiride 2 MG tablet Take 1 tablet by mouth every morning (before breakfast). aka: AMARYL HYDROcodone-acetaminophen 5-325 mg per tablet Take 1-2 tablets by mouth every 4 hours as needed for Pain. aka: NORCO losartan 50 mg tablet Take 50 mg by mouth Daily. Start after Losartan 25 mg aka: COZAAR losartan 25 mg tablet Take 25 mg by mouth Daily. For 14 days then increase to 50 mg daily aka: COZAAR omeprazole 40 MG capsule Take 40 mg by mouth every morning (before breakfast). aka: priLOSEC polyethylene glycol packet Take 1 diluted packet by mouth Daily as needed for Constipation. aka: MIRALAX triamcinolone 0.1% cream Apply 1 Application topically Twice daily as needed for Rash. aka: PAU HOSPITAL COURSE: Please refer to the H&P for full details and the most recent rounding rounding (progress) n ote. Severe sepsis with septic shock (hypotension) due toHCAP Patient presented with fever/chills, SOB. WBC 13.9, trop 0.15, BNP 600, lactic acid 2.6, pr ocal 0.56, UA +, flu negative, virus panel ngtd, Bld culture 10/26 NGTD, urine cutlure 10/26 NGT D. Respiratory sputum 10/26 strep pneumo, vael sens, MRSA culture + On vanc/zosyn started 10/26, changed to doxy, levofloxacin 10/30, plan for 14 day course, 11/08 will be the last day. Symp toms resolved at time of d/c. F/u with PCP made. ESRD on HD MWF Right arm fistula and still has right sided HD tunneled catheter. Patient will get HD follo wing D/C in outpatient setting. Ischemic Cardiomyopathy with type 2 MIdue to demand ischemia this admit Echo May 2018 EF 35-40 severe pulm HTN, No chest pain and EKG is paced.Prior CABG and AIC D (replaced December 2017 [place]), Now follows with Dr Luo (comes to [place] from [facility]). Trops peaked at 0.42. Stress test 10/30 shows abnormal medium sized reversible defect of t he mid anterior, distal anterior, apex, distal anteroseptal and inferior apical region. Flor ent was seen by Dr. Damian, recommended medical mgmt with cardiology follow up. D/C on aspirin and statin. EVITA Noncomplaint with CPAP. Overnight pul ox performed. Patient prescribed nocturnal oxygen. LLE Chronic wound -Scheduled follow up with wound care Gen: AAOx3 Pulm: CTA throughout Card: S1, S2 present, no murmurs Abd: Soft, NT Extremities: No LE edema, LLE ulcer Neuro: No focal deficit Psych: Normal affect Most recent weight: Input and output for last 24hrs: Wt Readings from Last 1 Encounters: 11/01/18 103.2 kg (227 lb 8.2 oz) I/O last 24 Hours: In: 668 [P.O.:668] Out: - Vitals Ranges: Temp: [36 C (96.8 F)-37 C (98.6 F)] 36.6 C (97.8 F) Pulse: [68-79] 70 Resp: [20-24] 20 BP: (132-165)/(58-75) 165/75 Vitals: Temp: 36.6 C (97.8 F) BP: 165/75 Pulse: 70 Resp: 20 SpO2: 97 % SpO2 97 % on nasal cannula with humidification at flow rate 2L/min PHYSICAL EXAM: Patient seen and examined by me on discharge day PROCEDURES AND CONSULTS: Procedures None Consults Card, Nephrology PENDING RESULTS: DISPOSITION AND DISCHARGE INSTRUCTIONS: Follow-up Information Gregory Drummond MD. Specialty: Internal Medicine Contact information: [address] [facility] [address] Cardiology In 1 week. Condition: Patient being discharged with condition improved Diet: Renal, Card Less than 30 minutes were spent on discharge and coordination of post-hospital care. Electronically signed by: Richard Bell MD, 11/01/2018 10:02 [facility] Portions of this chart may have been created with [employer] voice recognition software. Occasi onal wrong-word or sound-alike substitutions may have occurred due to the inherent al itations of voice recognition software. Please read the chart carefully and recognize, using context, where these substitutions have occurred documented in this encounter Discharge Instructions Instructions Richard Bell MD - 10/26/2018Mr. Cirilo, You presented with fever, chills, cough. On your work up, you had an elevated white blood c ell count concerning for an infection. A Chest xray showed an pneumonia. You were started on broad spectrum antibiotics. Intially you required medications to keep your blood pressure e levated. Gradually your symptoms improved. You will continue to take doxycycline 100mg twice a day and levofloxacin 500mg every other day with the last day on November 08. Your sputum c ulture grew streptococcus pneumoniae which is covered. During this admission, you had a slight elevation in a lab concerning for heart strain. You had a stress test performed on 10/30/18 which did show possible coronary artery disease. You had a repeat ECHO of your heart which did not show change in function. The independent consultant here , Dr. Damian, recommended that you follow with your independent consultant and continue with medical ther apy. If you have any symptoms including chest pain please return for further evaluation. You should be contacted for a follow up appointment with wound care for your wound on your left leg. Please call if you are not informed of the appointment time. documented in this encounter Medications at Time [...] + + + +---------+ + + | Acetaminophen 500 | Take 1,000 mg by | | 0 | | | | MG CAPS | mouth every 6 hours | | | | 9 | | | as needed. | | | | | + + + +---------+ + + | doxycycline | Take 1 tablet by | 15 | 0 | 11/02/19 | | | (VIBRAMYCIN) 100 mg | mouth 2 times daily | tablet | | 19 | 9 | | tabletIndications: | for 7 days. | | | | | | Community Acquired | Indications: | | | | | | Pneumonia | Community Acquired | | | | | | | Pneumonia | | | | | + + [...] | | 80 mg tablet | 2 times daily. | | | | 9 | + + + +---------+ + + | | Take 1-2 tablets by | 20 | 0 | 09/05/19 | | | HYDROcodone-acetamin | mouth every 4 hours | tablet | | 19 | 9 | | ophen (NORCO) 5-325 | as needed for Pain. | | | | | | mg per tablet | | | | | | + + + +---------+ + + | levoFLOXacin | Take 1 tablet by | 4 | 0 | 11/03/19 | | | (LEVAQUIN) 500 mg | mouth Every other | tablet | | 19 | 9 | | tabletIndications: | day for 6 days. | | | | | | Healthcare-Associate | Indications: | | | | | | d Pneumonia | Healthcare-Associate | | | | | | | d Pneumonia | | | | | + + + +---------+ + + | losartan (COZAAR) | Take 25 mg by mouth | | 0 | 10/21/19 | | | 25 mg tablet | Daily. For 14 days | | | 19 | 9 | | | then increase to 50 | | | | | | | mg daily | | | | | + + + +---------+ + + | losartan (COZAAR) | Take 50 mg by mouth | | 0 | | | | 50 mg tablet | Daily. Start after | | | | 9 | | | Losartan 25 mg | | | | | + + [...] documented as of this encounter Progress Notes Lora Johnson, LAST REMODELER REPAIRER - 10/31/2018 1:23 PM PDTFormatting of this note might be different fr om the original. 10/31/18 1105 Oxygen Therapy Home O2 eval performed? yes Resting on RA (%) 90 Exercising on RA (%) 90 He walked with a walker on room air, maintaining 90% saturation with mild shortness of miguelito th. Paul Acuña, PharmD - 10/31/2018 11:43 AM PDTFormatting of this note might be different from the origi nal. PHARMACY SERVICES: ADMISSION MEDICATION REVIEW David Kerr is a 73 y.o. male admitted on 10/26/2018. Patient is a reliable historian. Location of Patient when reviewed: ED X Medical Floor Patient s prior to admit medication and over the counter (OTC) medications/herbal supplem ents list obtained from: X Verbal interview X Patient ABLE to recall name, strength, and directions X Doctor's office: Dr Bhanu Valentin [facility] X Outside Information Vaccines up to date? Yes No Unsure Influenza X Pneumococcal X Tdap X Shingles X Noted medications discrepancies or medication-related issues: Dosage change: Medication: Prior to Admission Sig: Correct sig: Furosemide 80 mg tablet Take 2 tablets by mouth 2 times daily Take 1 tablet by mouth 2 oscar es daily Medication added: Medication: Prior to Admission Sig: Patient taking differently as: Omeprazole 40 mg capsule Take 1 capsule by mouth every morning Losartan 25 mg tablet Take 1 tablet by mouth daily for 14 days, then increase to 50 mg nuno y Filled 10/20/18 Losartan 50 mg tablet Take 1 tablet by mouth daily Filled 10/20/18, patient hasn't started y et. 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 Provider Acetaminophen 500 MG CAPS Take 1,000 mg by mouth every 6 hours as needed. Taking Historic al ProviderMD allopurinol (ZYLOPRIM) 300 mg tablet Take 150 mg by mouth Daily. Taking Historical Provid erMD aspirin 81 MG tablet Take 81 mg by mouth. Three times a week Taking Historical ProviderMD atorvaSTATin (LIPITOR) 40 mg tablet Take 40 mg by mouth nightly. Taking Historical Provid erMD b complex-vitamin c-folic acid (NEPHRO-PAOLO) tablet Take 1 tablet by mouth Daily. Taking 9 0 tablet Silvina Alcantar MD fexofenadine (HECTOR) 180 mg tablet Take 180 mg by mouth Daily as needed for Allergies. T aking Historical ProviderMD furosemide (LASIX) 80 mg tablet Take 80 mg by mouth 2 times daily. Taking Historical Prov MD harvinder glimepiride (AMARYL) 2 MG tablet Take 1 tablet by mouth every morning (before breakfast). Taking 30 tablet Bruce Alcantar MD HYDROcodone-acetaminophen (NORCO) 5-325 mg per tablet Take 1-2 tablets by mouth every 4 ho urs as needed for Pain. Taking 20 tablet Amilcar Hampton MD, FACS losartan (COZAAR) 25 mg tablet Take 25 mg by mouth Daily. For 14 days then increase to 50 mg daily Taking Gregory Drummond MD losartan (COZAAR) 50 mg tablet Take 50 mg by mouth Daily. Start after Losartan 25 mg Lisy Drummond MD omeprazole (PRILOSEC) 40 MG capsule Take 40 mg by mouth every morning (before breakfast). Taking Historical MD Aure polyethylene glycol (MIRALAX) packet Take 1 diluted packet by mouth Daily as needed for Co nstipation. Taking Bruce Alcantar MD triamcinolone (KENALOG) 0.1% cream Apply 1 Application topically Twice daily as needed fo r Rash. Taking Serene Looney MD Medication review performed and electronically signed by Diane Conti, Prosthetic Technician 10/31/2018 10:51 Reviewed by Miller Estrella PharmD 10/31/2018 11:43 Lora Rose LAST REMODELER REPAIRER - 10/31/2018 10:49 AM PDTPatient had continuous oximetry overnight. He was <90% sat urated 6 hours and >90% saturated almost 4 hours of the night. He was placed on 2 lpm nasal cannula at 0400 and remained >90% saturated for the rest of the night. Richard Dotson MD - 10/31/2018 10:23 AM PDT [place], [place] HOSPITALIST PROGRESS NOTE Patient: David Romero Jr. [facility] : 1945: Age: 73 y.o. MedRec: [id number] Admission date: 10/26/2018 Hospital day # : 5 Physician author: Richard Bell MD Today: 10/31/2018 Assessment and Hospital Course Active Hospital Problems Diagnosis Pneumonia Clinical sepsis Acute respiratory failure with hypoxia Resolved Hospital Problems No resolved problems to display. Plan Severe sepsis with septic shock (hypotension) due to HCAP WBC 13.9, trop 0.15, BNP 600, lactic acid 2.6, procal 0.56, UA +, flu negative, virus panel ngtd, Bld culture 10/26 NGTD, urine cutlure 10/26 NGTD. Respiratory sputum 10/26 strep pneumo, pa n sens, MRSA culture + -Legionella pending -On vanc/zosyn started 10/26, will change to doxy, levofloxacin 10/30, plan for 14 day course, 11/08 will be the last day ESRD on HD MWF Right arm fistula and still has right sided HD tunneled catheter -Dr. Alcantar is following, greatly appreciate recs -Failed to have PICC line placed, can use one port of HD catheter Ischemic Cardiomyopathy with type 2 TX due to demand ischemia this admit Echo May 2018 EF 35-40 severe pulm HTN, No chest pain and EKG is paced. Prior CABG and AICD (replaced December 2017 [place]), Now follows with Dr Luo (comes to [place] from [facility] ). Trops peaked at 0.42. Stress test 10/30 shows abnormal medium sized reversible defect of th e mid anterior, distal anterior, apex, distal anteroseptal and inferior apical region. -On ASA, statin -Consulted Dr. Damian (cardiology), appreciated assistance, recommended TTE for now, if worsen ing function would consider intervention NIDDM -On ISS -Has not required much insulin -Hold glimepiride EVITA Noncomplaint with CPAP -Ordered nocturnal puls ox FEN: Card, Fluid restriction PPX: HSQ Disp: PT/OT rec home with home health Current Facility-Administered Medications: acetaminophen 650 mg Oral Q4H PRN albumin 12.5 g Intravenous PRN albuterol-ipratropium 3 mL Nebulization TID allopurinol 100 mg Oral Daily aspirin 81 mg Oral Daily atorvaSTATin 40 mg Oral Nightly calcium carbonate 1,000 mg Oral Q4H PRN dextrose 12.5 g Intravenous PRN doxycycline 100 mg Intravenous 2 times per day heparin 1,500-6,000 Units Intracatheter PRN heparin 500 Units Intravenous With each dialysis heparin 5,000 Units Subcutaneous 2 times per day Heparin Infusion 200 Units/hr Intravenous Continuous HYDROcodone-acetaminophen 1-2 tablet Oral Q4H PRN insulin lispro 0-6 Units Subcutaneous 4x Daily WC and HS [START ON 11/01/2018] levoFLOXacin 500 mg Intravenous Every Other Day melatonin 1.5 mg Oral Nightly PRN metoclopramide 5 mg Intravenous Q4H PRN norepinephrine 1-30 mcg/min Intravenous Titrated ondansetron 4 mg Intravenous Q6H PRN pantoprazole 40 mg Oral QAM AC phenylephrine 1-2 spray Each Nare Q4H PRN polyethylene glycol 17 g Oral Daily PRN senna 8.6 mg Oral BID PRN sodium chloride 0.9% 250 mL Intravenous Q30 Min PRN Allergies: Allergies Allergen Reactions Morphine Other (See Comments) Became really mean Changes personality to "mean" "get mean" Current Medications: Current Facility-Administered Medications Medication Dose Route Frequency Provider Last Rate Last Dose acetaminophen (TYLENOL) tablet 650 mg 650 mg Oral Q4H PRN Hali Daniel MD albumin 25% IVPB 12.5 g 12.5 g Intravenous PRN Silvina Alcantar MD albuterol-ipratropium 2.5-0.5 mg/3 mL nebulizer solution 3 mL 3 mL Nebulization TID Se colette Berumen MD 3 mL at 10/31/18 0949 allopurinol (ZYLOPRIM) tablet 100 mg 100 mg Oral Daily Hali Daniel MD 100 m g at 10/31/18 0947 aspirin EC tablet 81 mg 81 mg Oral Daily Hali Daniel MD 81 mg at 10/31/18 0 947 atorvaSTATin (LIPITOR) tablet 40 mg 40 mg Oral Nightly Hali Daniel MD 40 mg at 10/30/18 2054 calcium carbonate (TUMS) chewable tablet 1,000 mg 1,000 mg Oral Q4H PRN Hali Daniel MD dextrose 50% injection 12.5 g 12.5 g Intravenous PRN Hali Daniel MD doxycycline (VIBRAMYCIN) 100 mg in sodium chloride 0.9% 100 mL IVPB 100 mg Intravenous 2 times per day Richard Bell MD 100 mL/hr at 10/31/18 0947 100 mg at 10/31/18 0947 heparin 1,000 units/mL injection 1,500-6,000 Units 1,500-6,000 Units Intracatheter PRN Silvina Alcantar MD 1,800 Units at 10/30/18 1454 heparin 1,000 units/mL injection 500 Units 500 Units Intravenous With each dialysis Yonas Alcantar MD 500 Units at 10/30/18 1049 heparin 5,000 units/mL injection 5,000 Units 5,000 Units Subcutaneous 2 times per day Hali Daniel MD 5,000 Units at 10/30/18 205 heparin in half-normal saline 50 units/mL infusion 200 Units/hr Intravenous Continuous Silvina Alcantar MD 4 mL/hr at 10/30/18 1049 200 Units/hr at 10/30/18 1049 HYDROcodone-acetaminophen (NORCO) 5-325 mg per tablet 1-2 tablet 1-2 tablet Oral Q4H P RN Hali Daniel MD insulin lispro (humaLOG KWIKPEN) injection (pen) 0-6 Units 0-6 Units Subcutaneous 4x D aily WC and HS Hali Daniel MD 1 Units at 10/30/18 1730 [START ON 11/01/2018] levoFLOXacin in dextrose (LEVAQUIN) IVPB 500 mg 500 mg Intravenou s Every Other Day Richard Bell MD melatonin tablet 1.5 mg 1.5 mg Oral Nightly PRN Hali Daniel MD 1.5 mg at 2252 metoclopramide (REGLAN) 5 mg/mL injection 5 mg 5 mg Intravenous Q4H PRN Noa cleary PharmD norepinephrine in saline (LEVOPHED) 16 mcg/mL infusion 1-30 mcg/min Intravenous Titrat ed Miky Villarreal MD Stopped at 10/28/18 0356 ondansetron (ZOFRAN) injection 4 mg 4 mg Intravenous Q6H PRN Hali Daniel MD pantoprazole (PROTONIX) DR tablet 40 mg 40 mg Oral QAM AC Hali Daniel MD 40 mg at 10/31/18 0653 phenylephrine (KELSEY-SYNEPHRINE) 0.25% nasal spray 1-2 spray 1-2 spray Each Nare Q4H PRN Richard Bell MD polyethylene glycol (MIRALAX) powder 17 g 17 g Oral Daily PRN Hali Daniel MD senna (SENOKOT) tablet 8.6 mg 8.6 mg Oral BID PRN Hali Daniel MD sodium chloride 0.9% (NS) infusion 250 mL 250 mL Intravenous Q30 Min PRN Silvina Hale MD Current Infusions: Heparin Infusion 200 Units/hr (10/30/18 1049) norepinephrine Stopped (10/28/18 0356) Objective Data Point of care glucose Recent Labs Lab 10/31/18 0603 10/30/18 2255 10/30/18 1722 10/30/18 1133 10/30/18 0800 10/29/18 1955 POCGLU 105 165* 167* 122* 108 229* Labs last 24 hours Recent Results (from the past 24 hour(s)) NM Nuclear Stress Test (Vasodilator) Collection Time: 10/30/18 11:20 Result Value Ref Range BASELINE HEART RATE 70 bpm BASELINE BLOOD PRESSURE 119/67 mmHg PEAK HEART RATE 75 PEAK BLOOD PRESSURE 135/57 mmHG Target HR 126 Percent HR 51 LVEF-SPECT NUCLEAR STRESS/VIABILITY 36 % ST Elevation (mm) 0.0 mm POC Glucose Collection Time: 10/30/18 11:33 Result Value Ref Range Glucose, POC 122 (H) 70 - 109 mg/dL POC Glucose Collection Time: 10/30/18 17:22 Result Value Ref Range Glucose, POC 167 (H) 70 - 109 mg/dL POC Glucose Collection Time: 10/30/18 22:55 Result Value Ref Range Glucose, POC 165 (H) 70 - 109 mg/dL Basic Metabolic Panel Collection Time: 10/31/18 4:29 Result Value Ref Range Na 133 (L) 136 - 145 mmol/L K 4.4 3.4 - 5.1 mmol/L Cl 99 98 - 107 mmol/L CO2 23 20 - 31 mmol/L Anion Gap 11 3 - 16 mmol/L Glucose 119 (H) 60 - 106 mg/dL BUN 49 (H) 9 - 23 mg/dL Creatinine 4.30 (H) 0.70 - 1.30 mg/dL eGFR if not 14 (L) >=60 mL/min/1.73m2 Ca 9.1 8.7 - 10.4 mg/dL BUN/Creatinine Ratio 11.4 CBC with Differential Collection Time: 10/31/18 4:29 Result Value Ref Range WBC 5.8 4.0 - 11.0 K/uL RBC 3.72 (L) 4.30 - 5.70 M/uL Hemoglobin 11.9 (L) 13.5 - 18.0 g/dL Hematocrit 36.5 (L) 40.0 - 51.0 % MCV 98.1 83.0 - 101.0 fL MCH 32.0 28.0 - 35.0 pg MCHC 32.6 32.0 - 36.0 g/dL RDW-CV 15.2 (H) <15.0 % RDW-SD 54.5 (H) 35.1 - 46.3 fL Platelet Count 122 (L) 140 - 440 K/uL MPV 11.4 6.5 - 12.4 fL Immature Platelet Fraction 3.5 0.9 - 11.2 % % Neutrophils 70.4 45.0 - 82.0 % % Lymphocytes 16.4 (L) 20.0 - 45.0 % % Monocytes 10.5 4.0 - 12.0 % % Eosinophils 1.7 0.0 - 5.0 % % Basophils 0.7 0.0 - 1.0 % % Immature Granulocytes 0.3 0.0 - 0.4 % Absolute Neutrophils 4.08 1.80 - 8.50 K/uL Absolute Lymphocytes 0.95 0.60 - 3.20 K/uL Absolute Monocytes 0.61 0.00 - 1.00 K/uL Absolute Eosinophils 0.10 0.00 - 0.40 K/uL Absolute Basophils 0.04 0.00 - 0.10 K/uL Absolute Immature Granulocytes 0.02 0.00 - 0.03 K/uL % nRBC 0 0 - 2 per 100 WBCs Absolute nRBC 0.00 0.00 - 0.01 K/uL Magnesium Collection Time: 10/31/18 4:29 Result Value Ref Range Magnesium 1.7 1.6 - 2.6 mg/dL Phosphorus Collection Time: 10/31/18 4:29 Result Value Ref Range Phosphorus 5.1 2.4 - 5.1 mg/dL POC Glucose Collection Time: 10/31/18 6:03 Result Value Ref Range Glucose, POC 105 70 - 109 mg/dL Micro results Microbiology Results (72 hrs) No results found for the last 72 hours. Radiology results No results found. Vitals Ranges: Temp: [35.6 C (96 F)-37 C (98.6 F)] 36.6 C (97.9 F) Pulse: [61-86] 70 Resp: [14-27] 20 BP: (106-151)/(42-76) 131/59 Vitals: Temp: 36.6 C (97.9 F) BP: 131/59 Pulse: 70 Resp: 20 SpO2: 92 % SpO2 92 % on nasal cannula at flow rate 2L/min Subjective Patient feels well today. No complaints Exam Gen Josie - alert, cooperative and no distress Head - Normocephalic Eyes - Conjunctiva/corneas clear ENT - mucous membranes moist Neck - supple Lungs - CTA throughout Heart - normal rate, rhythm w/o m/r/g Abdomen - Normoactive bowel sounds, non-tender non-distended Extremities - no peripheral edema, no clubbing or cyanosis Skin - No rashes Neurologic - Alert and oriented x 3 Richard Bell 10/31/2018 10:24 [facility] Silvina Mansfield M D - 10/30/2018 12:04 PM PDT [facility] NEPHROLOGY progress note Patient: David Romero Jr. [facility] : 1945 Hospital Day # 4 ASSESMENT AND PLAN 1. End-stage renal disease, on hemodialysis since Jun 2018. Access: Right upper arm AVF, created on 09/05/18. R IJ HD catheter in place. Pt dialyzes MWF in [place]. -HD today x 4 hrs, 2 K, UF goal 1.5 Liters 2. CAP due to Streptococcus pneumoniae. Blood cx remains NGTD. Pt is improved clinically. -Abx narrowed. 3. Ischemic cardiomyopathy. H/o 4-v CABG in 2009, bi-V pacer/ICD placement in 2009. Pt had troponin leak at admission, likely due to demand ischemia. -Pt completed cardiac stress test this AM. 4. Anemia due to ESRD. Hb is stable. 24 HR EVENTS Afebrile HD x 4 hrs yesterday, UF 1.2 L SUBJECTIVE Pt denies shortness of breath, chest pain, abdominal pain. Less cough. No hemoptysis. Pt had a nosebleed this morning. CURRENT MEDICATIONS Scheduled Meds: albuterol-ipratropium 3 mL Nebulization TID allopurinol 100 mg Oral Daily aspirin 81 mg Oral Daily atorvaSTATin 40 mg Oral Nightly doxycycline 100 mg Intravenous 2 times per day heparin 500 Units Intravenous With each dialysis heparin 5,000 Units Subcutaneous 2 times per day insulin lispro 0-6 Units Subcutaneous 4x Daily WC and HS [START ON 11/01/2018] levoFLOXacin 500 mg Intravenous Every Other Day levoFLOXacin 750 mg Intravenous Once pantoprazole 40 mg Oral QAM AC Continuous Infusions: Heparin Infusion 200 Units/hr (10/30/18 1049) norepinephrine Stopped (10/28/18 0356) PRN Meds:acetaminophen, albumin, calcium carbonate, Hypoglycemia Management AND POCT G lucose AND dextrose, heparin, HYDROcodone-acetaminophen, melatonin, metoclopramide, onda nsetron, phenylephrine, polyethylene glycol, senna, sodium chloride 0.9% OBJECTIVE VITAL SIGNS: Vital sign ranges for last 24hrs: Input and output for last 24hrs: Temp: [36.3 C (97.3 F)-36.6 C (97.9 F)] 36.5 C (97.7 F) Pulse: [70-81] 70 Resp: [8-30] 22 BP: (104-147)/(35-104) 135/54 SpO2 Av.7 % Min: 88 % Max: 97 % Flow (L/min) Av.5 Min: 1.5 Max: 1.5 10/29 0701 - 10/30 0700 In: 899 [P.O.:480] Out: 1271 [Urine:10] General: In no acute distress Cardiac: Regular rate and rhythm, normal S1 and S2. Trace pitting lower peripheral edema. Chest: Normal respiratory effort. Clear to auscultation. Abdomen: Soft, non-distended, non-tender, normal bowel sounds. Neuro: Alert, interactive. Psych: Normal affect. Normal speech. Access: R IJ catheter in place. Right upper arm AVF. LABORATORY DATA: Recent Labs Lab 10/30/18 0412 10/29/18 0425 10/28/18 0417 WBC 6.3 7.7 12.4* HGB 11.4* 12.1* 11.4* HCT 35.5* 38.9* 36.1* PLT 131* 129* 146 Recent Labs Lab 10/30/18 0412 10/29/18 0425 10/28/18 0416 10/26/18 1309 NA 132* 132* 131* < > 131* K 4.8 5.4* 4.6 < > 4.5 CL 100 99 100 < > 95* CO2 23 26 26 < > 27 BUN 60* 73* 56* < > 56* CREA 5.23* 6.15* 4.94* < > 4.97* CALCIUM 8.5* 8.8 8.8 < > 9.2 ALBUMIN -- -- -- -- 3.7 GLU 166* 136* 137* < > 265* < > = values in this interval not displayed. Recent Labs Lab 10/30/1841110/29/1842410/28/18415 MG 1.9 2.0 1.7 Diagnostic Studies: Available data and images were reviewed personally. Significant results and findings are ad dressed here or in the Assessment and Plan. Silvina Alcantar MD Electronically signed: 10/30/2018 12:04 [facility] 10/30/2018 7:43 AM PDT RENAL DOSE ADJUSTMENT PER PHARMACY PROTOCOL: Subjective/Objective: David Kerr is a 73 y.o. year old male admitted on 10/26/2018 12:36 for severe s epsis and is receiving LEVOFLOXACIN for CAP. BP 142/63 | Pulse 70 | Temp 36.5 C (97.7 F) (Oral) | Resp 23 | Ht 1.702 m (5' 7") | Wt 105.6 kg (232 lb 12.9 oz) | SpO2 91% | BMI 36.46 kg/m Intake/Output Summary (Last 24 hours) at 10/30/2018 0743 Last data filed at 10/30/2018 0531 Gross per 24 hour Intake 899 ml Output 1271 ml Net -372 ml Recent Labs Lab 10/30/1841110/29/1842410/28/18415 CREA 5.23* 6.15* 4.94* Estimated Creatinine Clearance: 15 mL/min (A) (based on SCr of 5.23 mg/dL (H)). Date 10/30 Day of therapy 1 Serum Creatinine 5.23 CrCl (mL/min) 15 Dose - current 750 mg q48hr Dose - new 750 mg x1 500 q48hr Assessment/Plan: 1. For creatinine clearance 10-19 mL/min, decrease dose of LEVOFLOXACIN from 750 mg q48hr t o 750 mg x1 followed by 500 mg q48hr. 2. Pharmacy will continue to follow and adjust dose as appropriate to clinical condition an d creatinine clearance changes RENAL DOSE ADJUSTMENT PROTOCOL Electronically signed by: Al Hodges PharmD 10/30/2018 7:43 Noa Matamoros PharmD - 10/30/2018 7:30 AM PDTFormatting of this note might be different from the orig inal. RENAL DOSE ADJUSTMENT PER PHARMACY PROTOCOL: Subjective/Objective: David Kerr is a 73 y.o. year old male admitted on 10/26/2018 12:36 for Severe s epsis with septic shock and is receiving METOCLOPRAMIDE for Nausea and vomiting. BP 142/63 | Pulse 70 | Temp 36.5 C (97.7 F) (Oral) | Resp 23 | Ht 1.702 m (5' 7") | Wt 105.6 kg (232 lb 12.9 oz) | SpO2 91% | BMI 36.46 kg/m Intake/Output Summary (Last 24 hours) at 10/30/2018 0726 Last data filed at 10/30/2018 0531 Gross per 24 hour Intake 899 ml Output 1271 ml Net -372 ml Recent Labs Lab 10/30/18 0412 10/29/18 0425 10/28/18 0416 CREA 5.23* 6.15* 4.94* Estimated Creatinine Clearance: 15 mL/min (A) (based on SCr of 5.23 mg/dL (H)). Date 10/30 Day of therapy Serum Creatinine 5.23 CrCl (mL/min) 15 Dose - current 10 mg q4hr Dose - new 5 mg q4hr Assessment/Plan: 1. For creatinine clearance <50 mL/min, dose of METOCLOPRAMIDE should be changed from 10 mg q4h to 5 mg q4h. 2. Pharmacy will continue to follow and adjust dose as appropriate to clinical condition an d creatinine clearance changes RENAL DOSE ADJUSTMENT PROTOCOL Electronically signed by: Noa Manning PharmD 10/30/2018 7:26 Carola Dotson MD - 10/30/2018 7:26 AM PDTFormatting of this note might be different from the origin al. [facility] [place] [facility]OSPITAL[facility] PROGRESS NOTE Patient: David Romero Jr. [facility] : 1945: Age: 73 y.o. MedRec: [id number] Admission date: 10/26/2018 Hospital day # : 4 Physician author: Richard Bell MD Today: 10/30/2018 Assessment and Hospital Course Active Hospital Problems Diagnosis Pneumonia Clinical sepsis Acute respiratory failure with hypoxia Resolved Hospital Problems No resolved problems to display. Plan Severe sepsis with septic shock (hypotension) due to HCAP WBC 13.9, trop 0.15, BNP 600, lactic acid 2.6, procal 0.56, UA +, flu negative, virus panel ngtd -Leukocytosis has resolved -Bld culture 10/26 NGTD, urine cutlure 10/26 NGTD -Respiratory sputum 10/26 strep pneumo, vale sens -MRSA culture + -Legionella pending -On vanc/zosyn started 10/26, will change to doxy, ESRD on HD MWF Dr Chapincito Alcantar Right arm fistula and still has right sided HD tunneled catheter -Dr. Alcantar is following, greatly appreciate recs -HD today -Failed to have PICC line placed, can use one port of HD catheter Ischemic Cardiomyopathy with type 2 TX due to demand ischemia this admit Echo May 2018 EF 35-40 severe pulm HTN No chest pain and EKG is paced. Prior CABG and AICD (replaced December 2017 [place]) Now follows with Dr Luo (comes to [place] from [facility]). Trops peaked at 0.42 -Stress test today -On ASA, statin NIDDM -On ISS -Has not required much insulin -Hold glimepiride EVITA Noncomplaint with CPAP -Will consider nocturnal oxygen FEN: NPO for stress test PPX: HSQ Disp: Pending abx, stress test, need PT/OT after stress Current Facility-Administered Medications: acetaminophen 650 mg Oral Q4H PRN albuterol-ipratropium 3 mL Nebulization TID allopurinol 100 mg Oral Daily aspirin 81 mg Oral Daily atorvaSTATin 40 mg Oral Nightly calcium carbonate 1,000 mg Oral Q4H PRN dextrose 12.5 g Intravenous PRN heparin 5,000 Units Subcutaneous 2 times per day HYDROcodone-acetaminophen 1-2 tablet Oral Q4H PRN insulin lispro 0-6 Units Subcutaneous 4x Daily WC and HS melatonin 1.5 mg Oral Nightly PRN metoclopramide 10 mg Intravenous Q4H PRN norepinephrine 1-30 mcg/min Intravenous Titrated ondansetron 4 mg Intravenous Q6H PRN pantoprazole 40 mg Oral QAM AC pharmacy consult - other medications/reasons Other Pharmacy Consult piperacillin-tazobactam 3.375 g Intravenous Q12H polyethylene glycol 17 g Oral Daily PRN senna 8.6 mg Oral BID PRN vancomycin per pharmacy Other Pharmacy Consult Allergies: Allergies Allergen Reactions Morphine Other (See Comments) Became really mean Changes personality to "mean" "get mean" Current Medications: Current Facility-Administered Medications Medication Dose Route Frequency Provider Last Rate Last Dose acetaminophen (TYLENOL) tablet 650 mg 650 mg Oral Q4H PRN Hali Daniel MD albuterol-ipratropium 2.5-0.5 mg/3 mL nebulizer solution 3 mL 3 mL Nebulization TID Se colette Berumen MD 3 mL at 10/29/182013 allopurinol (ZYLOPRIM) tablet 100 mg 100 mg Oral Daily Hali Daniel MD 100 m g at 10/29/18 1010 aspirin EC tablet 81 mg 81 mg Oral Daily Hali Daniel MD 81 mg at 10/29/18 1 010 atorvaSTATin (LIPITOR) tablet 40 mg 40 mg Oral Nightly Hali Daniel MD 40 mg at 10/29/181999 calcium carbonate (TUMS) chewable tablet 1,000 mg 1,000 mg Oral Q4H PRN Hali Daniel MD dextrose 50% injection 12.5 g 12.5 g Intravenous PRN Hali Daniel MD heparin 5,000 units/mL injection 5,000 Units 5,000 Units Subcutaneous 2 times per day Hali Daniel MD 5,000 Units at 10/29/181999 HYDROcodone-acetaminophen (NORCO) 5-325 mg per tablet 1-2 tablet 1-2 tablet Oral Q4H P RN Hali Daniel MD insulin lispro (humaLOG KWIKPEN) injection (pen) 0-6 Units 0-6 Units Subcutaneous 4x D aily WC and HS Hali Daniel MD 1 Units at 10/29/181999 melatonin tablet 1.5 mg 1.5 mg Oral Nightly PRN Hali Daniel MD 1.5 mg at 0113 metoclopramide (REGLAN) 5 mg/mL injection 10 mg 10 mg Intravenous Q4H PRN Hali Daniel MD norepinephrine in saline (LEVOPHED) 16 mcg/mL infusion 1-30 mcg/min Intravenous Titrat ed Miky Villarreal MD Stopped at 10/28/18 0356 ondansetron (ZOFRAN) injection 4 mg 4 mg Intravenous Q6H PRN Hali Daniel MD pantoprazole (PROTONIX) DR tablet 40 mg 40 mg Oral QAM AC Hali Daniel MD 40 mg at 10/30/18 0634 Pharmacy to do AMS consult Phil Other Pharmacy Consult iMky Villarreal MD piperacillin-tazobactam (ZOSYN) 3.375 g in sodium chloride 0.9% 100 mL IVPB 3.375 g In travenous Q12H Hali Daniel MD 25 mL/hr at 10/29/18 2354 3.375 g at 10/29/18 2354 polyethylene glycol (MIRALAX) powder 17 g 17 g Oral Daily PRN Hali Daniel MD senna (SENOKOT) tablet 8.6 mg 8.6 mg Oral BID PRN Hali Daniel MD vancomycin per pharmacy Other Pharmacy Consult Hali Daniel MD Current Infusions: norepinephrine Stopped (10/28/18 0356) Objective Data Point of care glucose Recent Labs Lab 10/29/18 1955 10/29/18 1706 10/29/18 1142 10/29/18 0633 10/28/18 2154 10/28/18 1629 POCGLU 229* 148* 109 107 151* 106 Labs last 24 hours Recent Results (from the past 24 hour(s)) POC Glucose Collection Time: 10/29/18 11:42 Result Value Ref Range Glucose, POC 109 70 - 109 mg/dL POC Glucose Collection Time: 10/29/18 17:06 Result Value Ref Range Glucose, POC 148 (H) 70 - 109 mg/dL Vancomycin Level Collection Time: 10/29/18 17:55 Result Value Ref Range DATE OF LAST DOSE TIME OF LAST DOSE Vancomycin Random 21.9 5.0 - 40.0 ug/mL Extra Lavender Top Tube Collection Time: 10/29/18 17:56 Result Value Ref Range Extra Lavender Top Tube Done POC Glucose Collection Time: 10/29/18 19:55 Result Value Ref Range Glucose, POC 229 (H) 70 - 109 mg/dL CBC no Differential Collection Time: 10/30/18 4:12 Result Value Ref Range WBC 6.3 4.0 - 11.0 K/uL RBC 3.62 (L) 4.30 - 5.70 M/uL Hemoglobin 11.4 (L) 13.5 - 18.0 g/dL Hematocrit 35.5 (L) 40.0 - 51.0 % MCV 98.1 83.0 - 101.0 fL MCH 31.5 28.0 - 35.0 pg MCHC 32.1 32.0 - 36.0 g/dL RDW-CV 15.2 (H) <15.0 % RDW-SD 54.4 (H) 35.1 - 46.3 fL Platelet Count 131 (L) 140 - 440 K/uL MPV 11.0 6.5 - 12.4 fL % nRBC 0 0 - 2 per 100 WBCs Absolute nRBC 0.00 0.00 - 0.01 K/uL Basic Metabolic Panel Collection Time: 10/30/18 4:12 Result Value Ref Range Na 132 (L) 136 - 145 mmol/L K 4.8 3.4 - 5.1 mmol/L Cl 100 98 - 107 mmol/L CO2 23 20 - 31 mmol/L Anion Gap 9 3 - 16 mmol/L Glucose 166 (H) 60 - 106 mg/dL BUN 60 (H) 9 - 23 mg/dL Creatinine 5.23 (H) 0.70 - 1.30 mg/dL eGFR if not 11 (L) >=60 mL/min/1.73m2 Ca 8.5 (L) 8.7 - 10.4 mg/dL BUN/Creatinine Ratio 11.5 Magnesium Collection Time: 10/30/18 4:12 Result Value Ref Range Magnesium 1.9 1.6 - 2.6 mg/dL Vancomycin Level Collection Time: 10/30/18 4:12 Result Value Ref Range DATE OF LAST DOSE TIME OF LAST DOSE Vancomycin Random 19.5 5.0 - 40.0 ug/mL Micro results Microbiology Results (72 hrs) Procedure Component Value Units Date/Time Legionella, Ag, EIA, Qual, Urine [[id number]] Collected: 10/27/181535 Order Status: Sent Lab Status: In process Updated: 10/27/181535 Specimen: Urine, Clean Catch Respiratory pathogen panel, NAAT [[id number]] (Normal) Collected: 10/27/18 1240 Order Status: Completed Lab Status: Final result Updated: 10/27/181529 Specimen: Tissue from Nasopharynx Influenza A PCR Not Detected Influenza A H1 Not Detected Influenza A H3 Not Detected Influenza B PCR Not Detected Parainfluenza 1 Not Detected Parainfluenza 2 Not Detected Parainfluenza 3 Not Detected Parainfluenza 4 Not Detected RSV A Not Detected RSV B Not Detected Adenovirus Not Detected Human Metapneumovirus Not Detected Rhinovirus/Enterovirus Not Detected Bordetella Pertussis PCR Not Detected Bordetella holmesii Not Detected Bordetella parapertussis/bronchiseptica NAAT Not Detected Radiology results No results found. Vitals Ranges: Temp: [36.3 C (97.3 F)-36.6 C (97.9 F)] 36.5 C (97.7 F) Pulse: [70-80] 70 Resp: [14-30] 23 BP: (99-157)/(35-104) 142/63 Vitals: Temp: 36.5 C (97.7 F) BP: 142/63 Pulse: 70 Resp: 23 SpO2: 91 % SpO2 91 % on nasal cannula at flow rate 1.5L/min Subjective Patient has epistaxis today. Improved respirations Exam Gen Josie - alert, cooperative and no distress Head - Normocephalic Eyes - Conjunctiva/corneas clear ENT - mucous membranes moist Neck - supple Lungs - CTA throughout Heart - normal rate, rhythm w/o m/r/g Abdomen - Normoactive bowel sounds, non-tender non-distended Extremities - + Hyperpigmented LE, LLE ulceration Skin - No rashes Neurologic - Alert and oriented x 3 Richard Bell 10/30/2018 7:26 [facility] Silvina Mansfield M D - 10/29/2018 9:59 AM PDT [facility] NEPHROLOGY progress note Patient: David Romero Jr. [facility] : 1945 Hospital Day # 3 ASSESMENT AND PLAN 1. End-stage renal disease, on hemodialysis since Jun 2018. Access: Right upper arm AVF, created on 09/05/18. R IJ HD catheter in place. Pt dialyzes MWF in [place]. Shortened HD on 10/27/18. -HD x 4 hrs, 2 K, UF goal 1-1.5 Liters -Will reassess for HD need tomorrow. 2. CAP due to Streptococcus pneumoniae. Blood cx remains NGTD. Pt is improving clinically. Less oxygen need. Abx coverage per hospitalist. 3. Ischemic cardiomyopathy. H/o 4-v CABG in 2009, bi-V pacer/ICD placement in 2009. Pt had troponin leak at admission, likely due to demand ischemia. Plan for cardiac stress test per hospitalist. 4. Anemia due to ESRD. Hb is stable. 24 HR EVENTS Afebrile SUBJECTIVE Pt denies shortness of breath, chest pain, abdominal pain. Pt reports his mother yesterday; she was 92-yrs old. CURRENT MEDICATIONS Scheduled Meds: albuterol-ipratropium 3 mL Nebulization TID allopurinol 100 mg Oral Daily aspirin 81 mg Oral Daily atorvaSTATin 40 mg Oral Nightly heparin 500 Units Intravenous With each dialysis heparin 5,000 Units Subcutaneous 2 times per day insulin lispro 0-6 Units Subcutaneous 4x Daily WC and HS pantoprazole 40 mg Oral QAM AC pharmacy consult - other medications/reasons Other Pharmacy Consult piperacillin-tazobactam 3.375 g Intravenous Q12H vancomycin 500 mg Intravenous Q12H vancomycin per pharmacy Other Pharmacy Consult Continuous Infusions: Heparin Infusion 200 Units/hr (10/29/18 3174) norepinephrine Stopped (10/28/18 0356) PRN Meds:acetaminophen, albumin, calcium carbonate, Hypoglycemia Management AND POCT G lucose AND dextrose, heparin, HYDROcodone-acetaminophen, melatonin, metoclopramide, onda nsetron, polyethylene glycol, senna, sodium chloride 0.9% OBJECTIVE VITAL SIGNS: Vital sign ranges for last 24hrs: Input and output for last 24hrs: Temp: [35.8 C (96.4 F)-36.9 C (98.4 F)] 36.3 C (97.3 F) Pulse: [70-72] 70 Resp: [15-26] 21 BP: (107-130)/(44-74) 125/58 SpO2 Av.9 % Min: 84 % Max: 99 % Flow (L/min) Av Min: 1 Max: 25 10/28 07 - 10/29 0700 In: 1345 [P.O.:1220] Out: 10 [Urine:10] General: In no acute distress Cardiac: Regular rate and rhythm, normal S1 and S2. Trace pitting lower peripheral edema. Chest: Normal respiratory effort. Abdomen: Soft, non-distended, non-tender, normal bowel sounds. Neuro: Alert, interactive. Psych: Normal affect. Normal speech. Access: R IJ catheter is accessed with BFR 300 mL/min. LABORATORY DATA: Recent Labs Lab 10/29/1842410/28/1841610/27/18 033 WBC 7.7 12.4* 19.4* HGB 12.1* 11.4* 12.3* HCT 38.9* 36.1* 38.4* PLT 129* 146 147 Recent Labs Lab 10/29/1842410/28/1841510/27/18 0339 10/26/18 1309 NA 132* 131* 133* 131* K 5.4* 4.6 4.9 4.5 CL 99 100 97* 95* CO2 26 26 26 27 BUN 73* 56* 66* 56* CREA 6.15* 4.94* 5.54* 4.97* CALCIUM 8.8 8.8 8.8 9.2 ALBUMIN -- -- -- 3.7 GLU 136* 137* 176* 265* Recent Labs Lab 10/29/1842410/28/1841510/27/18 0339 MG 2.0 1.7 1.6 Diagnostic Studies: Available data and images were reviewed personally. Significant results and findings are ad dressed here or in the Assessment and Plan. Silvina Alcantar MD Electronically signed: 10/29/2018 10:00 [facility] eyer, Miky Ramirez MD - 10/29/2018 8:02 AM PDT [facility] [place] [facility] PROGRESS NOTE Patient: David Romero Jr. [facility] : 1945: Age: 73 y.o. MedRec: [id number] PCP: Gregory Drummond MD Admission date: 10/26/2018 Hospital day # : 3 Physician author: Miky Villarreal MD Today: 10/29/2018 Assessment and Hospital Course (dot meyprob vs meyprobap) Hospital Course Note No notes on file Active Hospital Problems Diagnosis Pneumonia Clinical sepsis Acute respiratory failure with hypoxia Resolved Hospital Problems No resolved problems to display. Severe sepsis with septic shock (hypotension) due to Pneumonia With acute hypoxic respir failure requiring High Flow NC 6th nasal MRSA positive, is improved today, not SOB, 45% vapotherm 7th looking even better off pressor 24 hours getting HD again this morning, predominant bug in sputum is Strep Pneumo, continue current Abxs but will have AMS and possibly Tuesday can narrow antibiotics if nothing else growing of note in cutlures ESRD on HD MWF Dr [place] Alcantar Right arm fistula and still has right sided HD tunneled catheter 6th we allowed to use one port of the right HD catheter as not able to place PICC on left 7th hyper K mild Ischemic Cardiomyopathy with type 2 TX due to demand ischemia this admit Echo May 2018 EF 35-40 severe pulm HTN No chest pain and EKG is paced Prior CABG and AICD (replaced December 2017 [place]) Now follows with Dr Luo (comes to [place] from [facility]) 6th troponins fell as expected and still NO chest pain 7th will do stress test on Tuesday DM with ESRD 6th sugars reviewed Right arm AV fistula Right tunneled HD catheter Dr [place] Alcantar says NOT use except for HD PICC ordered on for left arm 6th PICC coiled into left subclav so promptly removed, we can use one port of the HD cathet er Photo October 28 Patient says lesion (medial aspect above left ankle, Villarreal mislabeled photo as above right ankle) started as blister 6 weeks ago and is getting smaller Consent for Photo The patient was advised that digital photos will be taken today of David Kerr .The patient verbally consented to having these photos taken for purposes of documenting his /her condition. The patient understands that the images will be stored in their medical rec ord. See Photographs in the Media tab which is located in Chart Review. The Document type is Clinical Image Haiku/Melissa. Some photographs may also appear in certain notes from this encounter. (dot meyaddendum tdnorefesh nownorefresh) (dot meyvent) (dot malnutattest is attestation for malnutrition) Plan Continue Abxs statin ASA SS insulin Stress Test Tuesday HD today AMS consult anticipate change of Abxs on Tuesday (dot meyaddendum tdnorefesh nownorefresh) (dot meytime meycritical meysign) Miky Villarreal MD 10/29/2018 8:02 [facility] Subjective CC came to ER due to fever 102 No NV nor SOB Slight cough less blood now scant and last cough he showed me no blood this am No CP Prior admit in Dec for Sepsis ROS See above Objective Exam General Alert fluent no distress Cardiac RRR Extremities scant oedema Lung BBIR/BBIC not labored Abdominal + BS Neuro alert fluent (dot meyexam) (dot meyvent) Serial weights: Filed Weights: 10/26/18 1251 10/27/18 0400 10/28/18 0333 10/28/18 0735 Weight: 103 kg (227 lb) 106.6 kg (235 lb 0.2 oz) 105.6 kg (232 lb 12.9 oz) 105.6 kg (232 lb 12.9 oz) 10/28/18 1530 Weight: 105.6 kg (232 lb 12.9 oz) Most recent weight: Input and output 2 shifts and 3 shifts: Wt Readings from Last 1 Encounters: 10/28/18 105.6 kg (232 lb 12.9 oz) I/O last 24 Hours: In: 1345 [P.O.:1220; IV Piggyback:125] Out: 10 [Urine:10] I/O last 3 completed shifts: In: 1737.8 [P.O.:1340; I.V.:167.8; IV Piggyback:230] Out: 404 [Urine:10] Vitals Ranges: Temp: [35.8 C (96.4 F)-36.9 C (98.4 F)] 36.3 C (97.3 F) Pulse: [70-73] 70 Resp: [15-26] 19 BP: (107-130)/(44-74) 116/52 Vitals: Temp: 36.3 C (97.3 F) BP: 116/52 Pulse: 70 Resp: 19 SpO2: 95 % SpO2 95 % on nasal cannula at flow rate 3L/min Diet and Supplements Diet Diet NPO; meds ONLY; Effective Midnight Number of Occurrences: Until Specified Order Questions: Type Diet NPO NPO conditions meds ONLY Diet renal; potassium 2 gm K; 60 gm CARB/Meal; fat and cholesterol modified; 1500 ml fluid ; Effective Now Number of Occurrences: Until Specified Order Comments: Send dry tray, no fluids please. Order Questions: Type Diet renal Renal modifications potassium 2 gm K Carbohydrate restrictions 60 gm CARB/Meal Fat or cholesterol modifications fat and cholesterol modified Fluid volume restictions 1500 ml fluid Objective Data Allergies: Allergies Allergen Reactions Morphine Other (See Comments) Became really mean Changes personality to "mean" "get mean" Current Medications: Current Facility-Administered Medications Medication Dose Route Frequency Provider Last Rate Last Dose acetaminophen (TYLENOL) tablet 650 mg 650 mg Oral Q4H PRN Hali Daniel MD albumin 25% IVPB 12.5 g 12.5 g Intravenous PRN Silvina Alcantar MD albuterol-ipratropium 2.5-0.5 mg/3 mL nebulizer solution 3 mL 3 mL Nebulization TID Se colette Berumen MD 3 mL at 10/28/182005 allopurinol (ZYLOPRIM) tablet 100 mg 100 mg Oral Daily Hali Daniel MD 100 m g at 10/28/18 0918 aspirin EC tablet 81 mg 81 mg Oral Daily Hali Daniel MD 81 mg at 10/28/18 0 919 atorvaSTATin (LIPITOR) tablet 40 mg 40 mg Oral Nightly Hali Daniel MD 40 mg at 10/28/18 2150 calcium carbonate (TUMS) chewable tablet 1,000 mg 1,000 mg Oral Q4H PRN Hali Daniel MD dextrose 50% injection 12.5 g 12.5 g Intravenous PRN Hali Daniel MD heparin 1,000 units/mL injection 1,500-6,000 Units 1,500-6,000 Units Intracatheter PRN Silvina Alcantar MD heparin 1,000 units/mL injection 500 Units 500 Units Intravenous With each dialysis Je tino Alcantar MD heparin 5,000 units/mL injection 5,000 Units 5,000 Units Subcutaneous 2 times per day Hali Daniel MD 5,000 Units at 10/28/18 2150 heparin in half-normal saline 50 units/mL infusion 200 Units/hr Intravenous Continuous Silvina Alcantar MD HYDROcodone-acetaminophen (NORCO) 5-325 mg per tablet 1-2 tablet 1-2 tablet Oral Q4H P RN Hali Daniel MD insulin lispro (humaLOG KWIKPEN) injection (pen) 0-6 Units 0-6 Units Subcutaneous 4x D aily WC and HS Hali Daniel MD 2 Units at 10/27/18 1644 melatonin tablet 1.5 mg 1.5 mg Oral Nightly PRN Hali Daniel MD metoclopramide (REGLAN) 5 mg/mL injection 10 mg 10 mg Intravenous Q4H PRN Hali Daniel MD norepinephrine in saline (LEVOPHED) 16 mcg/mL infusion 1-30 mcg/min Intravenous Titrat ed Miky Villarreal MD Stopped at 10/28/18 0356 ondansetron (ZOFRAN) injection 4 mg 4 mg Intravenous Q6H PRN Hali Daniel MD pantoprazole (PROTONIX) DR tablet 40 mg 40 mg Oral QAM AC Hali Daniel MD 40 mg at 10/29/18 0634 piperacillin-tazobactam (ZOSYN) 3.375 g in sodium chloride 0.9% 100 mL IVPB 3.375 g In travenous Q12H Hali Daniel MD 25 mL/hr at 10/28/18 2345 3.375 g at 10/28/18 2345 polyethylene glycol (MIRALAX) powder 17 g 17 g Oral Daily PRN Hali Daniel MD senna (SENOKOT) tablet 8.6 mg 8.6 mg Oral BID PRN Hali Daniel MD sodium chloride 0.9% (NS) infusion 250 mL 250 mL Intravenous Q30 Min PRN Silvina Hale MD vancomycin 500 mg in sodium chloride 0.9% 100 mL IVPB 500 mg Intravenous Q12H Al li PharmD 100 mL/hr at 10/29/18 0627 500 mg at 10/29/18 06 vancomycin per pharmacy Other Pharmacy Consult Hali Daniel MD Current Infusions: Heparin Infusion norepinephrine Stopped (10/28/18 0356) Hematology and anemia Recent Labs Lab 10/29/1842410/28/1841610/27/1833810/26/18 1309 WBC 7.7 12.4* 19.4* 13.9* HGB 12.1* 11.4* 12.3* 13.4* HCT 38.9* 36.1* 38.4* 40.2 PLT 129* 146 147 166 NEUPCT -- -- 84.4* 90.0* MONPCT -- -- 6.2 5.5 Recent Labs Lab 10/26/18 1309 PROTIME 15.4* INR 1.2* No results for input(s): IRON, TIBC, PCTSAT, FERRITIN, TSH, [id number], FOLATE in the last 168 hours. Inflammatory markers Recent Labs Lab 10/26/18 1932 10/26/18 1309 LACTATE 1.5 2.6* PROCALCITONI -- 0.56* Chemistry Recent Labs Lab 10/29/18 0425 10/28/18 0416 10/27/18 03310/26/18 1309 GLU 136* 137* 176* 265* NA 132* 131* 133* 131* K 5.4* 4.6 4.9 4.5 CL 99 100 97* 95* CO2 26 26 26 27 ANIONGAP 7 5 10 9 BUN 73* 56* 66* 56* CREA 6.15* 4.94* 5.54* 4.97* GFRNONAA 9* 12* 10* 12* CALCIUM 8.8 8.8 8.8 9.2 ALBUMIN -- -- -- 3.7 TOTALPROTEIN -- -- -- 7.4 BILITOT -- -- -- 1.0 ALKPHOS -- -- -- 160* ALT -- -- -- 21 AST -- -- -- 30 Recent Labs Lab 10/29/18 0425 10/28/18 0416 10/27/18 0339 MG 2.0 1.7 1.6 No results for input(s): AMYLASE, LIPASE in the last 168 hours. No results for input(s): TRIG, CHOL, HDL, LDL in the last 168 hours. No results for input(s): AMMONIA in the last 168 hours. Cardiology & Digoxin Recent Labs Lab 10/28/18 0416 10/27/18 1605 10/27/18 0118 10/26/18 1901 10/26/18 1309 TROPONIN 0.19* 0.32* 0.42* 0.38* 0.15* BNP -- -- -- -- 600* ABG No results for input(s): PHART, PO2ART, UJG5BMM, BUC9QAC, BEART, D9BFIMJN in the last 168 h ours. No results for input(s): SPECSOURCE, PHPOCB, PCO2, PO2, HCO3, TCO2, BEART, VFIN1WPW in the last 168 hours. Drug of overdose and abuse No results for input(s): ALCOHOL, ACTMN, SALICYLATE in the last 168 hours. No results for input(s): AMPHEQUAL, BARBITURATE, BENZSCR, CANNIBSCR, AMPHETAMINE, METHADSCR , OPIATESCR in the last 168 hours. Urinalysis Recent Labs Lab 10/26/18 1404 GLUCOSEU 50 mg/dL* WBCUA 10-15* RBCUA 0-2 SQUAMEPIUA 50-100* BACTERIAUA 1+* Point of care glucose Recent Labs Lab 10/29/18 0633 10/28/18 2154 10/28/18 1629 10/28/18 1128 10/28/18 0702 10/27/18 2030 POCGLU 107 151* 106 90 81 193* Micro results more choices using dot micro (below is last 7 days) Microbiology Results (Last 7) Date with Culture/Sensitivity) Procedure Component Value Units Date/Time Legionella, Ag, EIA, Qual, Urine [[id number]] Collected: 10/27/18 1536 Order Status: Sent Lab Status: In process Updated: 10/27/18 1536 Specimen: Urine, Clean Catch Respiratory pathogen panel, NAAT [[id number]] (Normal) Collected: 10/27/18 1240 Order Status: Completed Lab Status: Final result Updated: 10/27/18 1530 Specimen: Tissue from Nasopharynx Influenza A PCR Not Detected Influenza A H1 Not Detected Influenza A H3 Not Detected Influenza B PCR Not Detected Parainfluenza 1 Not Detected Parainfluenza 2 Not Detected Parainfluenza 3 Not Detected Parainfluenza 4 Not Detected RSV A Not Detected RSV B Not Detected Adenovirus Not Detected Human Metapneumovirus Not Detected Rhinovirus/Enterovirus Not Detected Bordetella Pertussis PCR Not Detected Bordetella holmesii Not Detected Bordetella parapertussis/bronchiseptica NAAT Not Detected Culture, MRSA [[id number]] Collected: 10/26/18 1700 Order Status: Completed Lab Status: Final result Updated: 10/27/18 0800 Specimen: Tissue from Nares Culture 3+ Staphylococcus aureus,Methicillin resistant (MRSA) Comment: *INFECTION PREVENTION ALERT - MRSA* CONTACT PRECAUTIONS REQUIRED. Culture, Urine [[id number]] (Normal) Collected: 10/26/18 1404 Order Status: Completed Lab Status: Final result Updated: 10/28/18 1133 Specimen: Urine, Clean Catch Culture No Growth Culture, Blood [[id number]] (Normal) Collected: 10/26/18 1318 Order Status: Completed Lab Status: Preliminary result Updated: 10/27/18 0121 Specimen: Peripheral Blood Culture No growth: Monitored continually by instrument for 5 days Culture, Respiratory, Lower, Smear [[id number]] (Susceptibility) Collected: 10/26/18 1310 Order Status: Completed Lab Status: Final result Updated: 10/29/18 0736 Specimen: Body Fluid from Sputum, Expectorated Culture 3+ Usual Respiratory Florencia 4+ Streptococcus pneumoniae Gram Stain Result 3+ White Blood Cells 2+ Epithelial cells 2+ Gram positive cocci 3+ Gram positive bacilli 1+ Gram negative rods Susceptibility Streptococcus pneumoniae (2) Antibiotic Interpretation Method Status Clindamycin Sensitive Not Specified Final Erythromycin Sensitive Not Specified Final Levofloxacin Sensitive Not Specified Final Linezolid Sensitive Not Specified Final Moxifloxacin Sensitive Not Specified Final Penicillin G Sensitive Not Specified Final Tetracycline Sensitive Not Specified Final Tigecycline Sensitive Not Specified Final Trimethoprim + Sulfamethoxazole Sensitive Not Specified Final Vancomycin Sensitive Not Specified Final Cefotaxime Sensitive Not Specified Final Ceftriaxone Sensitive Not Specified Final Culture, Blood [[id number]] (Normal) Collected: 10/26/18 1309 Order Status: Completed Lab Status: Preliminary result Updated: 10/27/18 0121 Specimen: Peripheral Blood Culture No growth: Monitored continually by instrument for 5 days Influenza A and B RNA, NAAT [[id number]] (Normal) Collected: 10/26/18 1309 Order Status: Completed Lab Status: Final result Updated: 10/26/18 1351 Specimen: Tissue from Nares, Left Influenza A PCR Negative Influenza B PCR Negative Radiology results (more choices using dot risresults) Xr Chest Ap Portable Result Date: 10/27/2018 CLINICAL INFORMATION: picc line placement WILL CALL WHEN READY. COMPARISON: 10/26/2018. FINDI NGS: Portable frontal chest radiograph. Lines: Stable positioning of the right chest tunnele d dual-lumen central venous catheter. Interval placement of a left PICC line with the line coiled in the left subclavian vein. Lungs: Unchanged aeration of the lungs with persistent a irspace opacity at the right lower lung and diffuse mild prominence of the interstitial lung markings. No pneumothorax. Heart/mediastinum: Stable cardiomegaly. Stable left chest cardia c pacer device. Median sternotomy changes. IMPRESSION - Left PICC line coiled in the mid lef t subclavian vein. Unchanged appearance of the lungs and heart. Dictated and Signed by: Codi Gatica MD Electronically signed: 10/27/2018 2:38 PM Reference. This is NOT part of the patient's formal assessment section. In the assessment or plan section of notes the author may date some of the subsections with a number such as "" or "" to indicate the date of that entry or event. In the example below the 1st line is the original entry and the subsequent lines indicate flowing updates to the subsection: Example assessment subsection (such as CHF or CP or Pneumonia) Patient is improved today with resolution of symptoms 24th Worse with recurrence of symptoms requiring further testing Portions of this chart may have been created with [employer] voice recognition software. Occasi onal wrong-word or sound-alike substitutions may have occurred due to the inherent al itations of voice recognition software. Please read the chart carefully and recognize, using context, where these substitutions have occurred ery Pollard, Pharm D - 10/29/2018 5:46 AM PDT VANCOMYCIN PER PHARMACY PROTOCOL: AMS/Drug Name - vanco and zosyn Patient: David Romero Jr. [facility] [id number] Admit: 10/26/2018 12:36 RELEVANT ALLERGIES: no relavent 73 yrs old male patient admitted on 10/26/2018 for Fever, chills, cough, mild SOB Patient i s receiving vancomycin starting on 10/26/18 for HAP. Patient has a past medical history of Ar teriosclerotic cardiovascular disease, Chest pain, Claustrophobia, Dialysis patient (HCC), G out, Heart attack (HCC), Hemodialysis patient (HCC), Hypercholesteremia, Hyperlipidemia, Hyp ertension, Left arm pain, Pacemaker, Pulmonary hypertension (HCC), Sleep apnea, and Venous i nsufficiency. . Risk factors for MDR organisms include recent healthcare contact. HPI: ESRD (M-W-F), T2DM, CAD, ICM/Chronic Systolic CHF, AICD, EVITA, Gout, HTN and HLD who p resented with 2 day h/o fever (Tmax 102.6), chills, minimally productive cough and mild SOB. Pt denies sick contacts or recent travel. He reports he had HD with UF yesterday. He denies CP/abdominal pain. Admitted in 06/2018 for Sepsis/Pneumonia and ATN requiring HD. In the ER , febrile, hypoxic, leukocytosis and CXR showed RLL PNA. Antimicrobials - Current Antibiotic Dates of Therapy vanco /- zosyn 10/26 Antimicrobials - Discontinued Antibiotic Dates of Therapy azithro / one dose ceftri / one dose Historical Vancomycin dosing (previous & current encounter): HD patient- pulse dose 1250mg Micro/Cultures/Diagnostics: Microbiology Results (Last 14 Days by Collected Date with Culture/Sensitivity) Procedure Component Value Units Date/Time Legionella, Ag, EIA, Qual, Urine [[id number]] Collected: 10/27/18 1536 Order Status: Sent Lab Status: In process Updated: 10/27/18 1536 Specimen: Urine, Clean Catch Respiratory pathogen panel, NAAT [[id number]] (Normal) Collected: 10/27/18 1240 Order Status: Completed Lab Status: Final result Updated: 10/27/18 1530 Specimen: Tissue from Nasopharynx Influenza A PCR Not Detected Influenza A H1 Not Detected Influenza A H3 Not Detected Influenza B PCR Not Detected Parainfluenza 1 Not Detected Parainfluenza 2 Not Detected Parainfluenza 3 Not Detected Parainfluenza 4 Not Detected RSV A Not Detected RSV B Not Detected Adenovirus Not Detected Human Metapneumovirus Not Detected Rhinovirus/Enterovirus Not Detected Bordetella Pertussis PCR Not Detected Bordetella holmesii Not Detected Bordetella parapertussis/bronchiseptica NAAT Not Detected Culture, MRSA [[id number]] Collected: 10/26/18 1700 Order Status: Completed Lab Status: Final result Updated: 10/27/18 0800 Specimen: Tissue from Nares Culture 3+ Staphylococcus aureus,Methicillin resistant (MRSA) Comment: *INFECTION PREVENTION ALERT - MRSA* CONTACT PRECAUTIONS REQUIRED. Culture, Urine [[id number]] (Normal) Collected: 10/26/18 1404 Order Status: Completed Lab Status: Final result Updated: 10/28/18 1133 Specimen: Urine, Clean Catch Culture No Growth Culture, Blood [[id number]] (Normal) Collected: 10/26/18 1318 Order Status: Completed Lab Status: Preliminary result Updated: 10/27/18 0121 Specimen: Peripheral Blood Culture No growth: Monitored continually by instrument for 5 days Culture, Respiratory, Lower, Smear [[id number]] Collected: 10/26/18 1310 Order Status: Completed Lab Status: Preliminary result Updated: 10/28/18 1102 Specimen: Body Fluid from Sputum, Expectorated Culture Culture in progress... 3+ Usual Respiratory Florencia 4+ Streptococcus pneumoniae Comment: Presumptive identification Identification and susceptibility to follow. Gram Stain Result 3+ White Blood Cells 2+ Epithelial cells 2+ Gram positive cocci 3+ Gram positive bacilli 1+ Gram negative rods Culture, Blood [[id number]] (Normal) Collected: 10/26/18 1309 Order Status: Completed Lab Status: Preliminary result Updated: 10/27/18 0121 Specimen: Peripheral Blood Culture No growth: Monitored continually by instrument for 5 days Influenza A and B RNA, NAAT [[id number]] (Normal) Collected: 10/26/18 1309 Order Status: Completed Lab Status: Final result Updated: 10/26/18 1351 Specimen: Tissue from Nares, Left Influenza A PCR Negative Influenza B PCR Negative Relevant cultures from previous admits: Date Source Organisms Sensitivities none UA: 10/26- nitrite- negative, leukocyte esterase- trace, WBC 10-15, bacteria 1+ Admission Wt: Weight: 103 kg (227 lb) Current Wt: Weight: 105.6 kg (232 lb 12.9 oz) Min/Max Temp past 24 hours:Temp Av.3 C (97.4 F) Min: 35.8 C (96.4 F) Max: 3 6.9 C (98.4 F) Estimated Creatinine Clearance: 13 mL/min (A) (based on SCr of 6.15 mg/dL (H)). Intake/Output Summary (Last 24 hours) at 10/29/2018 0546 Last data filed at 10/28/2018 2215 Gross per 24 hour Intake 1245 ml Output 10 ml Net 1235 ml Temp: [35.8 C (96.4 F)-36.9 C (98.4 F)] 36.3 C (97.3 F) Pulse: [70-76] 70 Resp: [13-26] 19 BP: (100-130)/(44-79) 116/52 Recent Labs Lab 10/29/18 0425 10/28/18 0417 10/28/18 0416 10/27/18 0339 10/26/18 1932 10/26/18 1309 WBC 7.7 12.4* -- 19.4* -- 13.9* CREA 6.15* -- 4.94* 5.54* -- 4.97* LACTATE -- -- -- -- 1.5 2.6* VANCORANDOM -- -- 12.3 -- -- -- PROCALCITONI -- -- -- -- -- 0.56* Imagin/4 chest XR - IMPRESSION - Focal airspace disease at the right lower lung may represent pn eumonia. 10/26 CT chest- IMPRESSION - Pronounced bilateral lower lung zone pneumonia. Date 10/26 10/27 10/28 10/29 Dialysis (yes/no) n y n y Vancomycin level - 12.3 Vancomycin Dose 1250 mg tbd 500 mg Assessment: Vancomycin Day # 4 Other antibiotics: zosyn Target Trough: 15-20 mcg/ml for HAP WBC: leukocytosis; Renal: HD patient; Temp: febrile w/in last 24hr; Culture: urine: ngtd , sputum: strep pneumoniae (awaiting sensitivities), blood: ngtd, nares:+ MRSA; VS: hypotens eugenio on norepi Prior to admission dialysis schedule: [facility] Vancomycin Dosing in HD patients: If post-hemodialysis vancomycin concentration is: - >20 mcg/mL: hold post-HD dose - 10-20 mcg/mL: 500 mg after HD - <10 mcg/mL: 750-1000 mg after HD Plan: 1. HD planned today 10/29 x 4 hours 2. Level due 4-6 hours after HD session ends per protocol. 3. Serum creatinine DAILY for first 3 days, then at least every 3 days while on vancomycin. 4. Will monitor renal function, clinical status, infection markers daily with troughs and d ose adjustment as needed. ADDENDUM: Post-HD level 21.9, high Will draw another level tomorrow with AM labs Unknown if patient will receive HD on 10/30 Definitions: For the purpose of this protocol, "trough" means a steady state trough before the 4th dose of the initial/new dosing regimen and "level" means all other levels drawn including before the 3rd dose References: Vancomycin dosing protocol IDSA guidelines Procalcitonin Algorithm Per P&T-approved Vancomycin Dosing and Monitoring Protocol Electronically signed by: Al Hodges, PharmD 10/29/2018 5:46 Silvina Mansfield MD - 10/28/2018 10:32 AM PDT [facility] NEPHROLOGY progress note Patient: David Romero Jr. [facility] : 1945 Hospital Day # 2 ASSESMENT AND PLAN 1. End-stage renal disease, on hemodialysis since Jun 2018. Access: Right upper arm AVF, created on 09/05/18. R IJ HD catheter in place. Pt dialyzes MWF in [place]. Shortened HD on 10/27/18. -Will plan for HD tomorrow, t=4 hrs. 2. CAP. Sputum cx 4+ GPC. Blood cx remains NGTD. Leukocytosis is trending down. Afebrile. -On broad-spectrum abx. 3. Ischemic cardiomyopathy. H/o 4-v CABG in 2009, bi-V pacer/ICD placement in 2009. BP is improved. Off norepi gtt. 4. Anemia due to ESRD. Hb is stable. 24 HR EVENTS HD x 3 hrs only, UF 529 mL, treatment shortened due to elevated arterial pressure Off norepi gtt SUBJECTIVE Pt states he is coughing less this morning. Pt denies chest pain, shortness of breath, abd ominal pain, constipation. CURRENT MEDICATIONS Scheduled Meds: albuterol-ipratropium 3 mL Nebulization 4x Daily allopurinol 100 mg Oral Daily aspirin 81 mg Oral Daily atorvaSTATin 40 mg Oral Nightly heparin 500 Units Intravenous With each dialysis heparin 5,000 Units Subcutaneous 2 times per day insulin lispro 0-6 Units Subcutaneous 4x Daily WC and HS pantoprazole 40 mg Oral QAM AC piperacillin-tazobactam 3.375 g Intravenous Q12H vancomycin 500 mg Intravenous Q12H vancomycin per pharmacy Other Pharmacy Consult Continuous Infusions: Heparin Infusion Stopped (10/27/18 2140) norepinephrine Stopped (10/28/18 0356) PRN Meds:acetaminophen, albumin, calcium carbonate, Hypoglycemia Management AND POCT G lucose AND dextrose, heparin, HYDROcodone-acetaminophen, melatonin, metoclopramide, onda nsetron, polyethylene glycol, senna, sodium chloride 0.9% OBJECTIVE VITAL SIGNS: Vital sign ranges for last 24hrs: Input and output for last 24hrs: Temp: [36.1 C (97 F)-37.1 C (98.8 F)] 36.1 C (97 F) Pulse: [70-81] 73 Resp: [11-28] 23 BP: (83-141)/(32-84) 100/74 SpO2 Av % Min: 81 % Max: 100 % Flow (L/min) Av Min: 25 Max: 25 10/27 0701 - 10/28 0700 In: 1232.8 [P.O.:860; I.V.:267.8] Out: 629 [Urine:100] General: In no acute distress Cardiac: Regular rate and rhythm, normal S1 and S2. Trace pitting lower peripheral edema. Chest: Normal respiratory effort. Left basilar crackles. Decreased breath sounds at rig ht base. Abdomen: Soft, non-distended, non-tender, normal bowel sounds. Neuro: Alert, interactive. Psych: Normal affect. Normal speech. Access: R IJ catheter in place. Right upper arm AVF. LABORATORY DATA: Recent Labs Lab 10/28/1841610/27/1833810/26/18 1309 WBC 12.4* 19.4* 13.9* HGB 11.4* 12.3* 13.4* HCT 36.1* 38.4* 40.2 PLT 146 147 166 Recent Labs Lab 10/28/1841510/27/18 03310/26/18 1309 NA 131* 133* 131* K 4.6 4.9 4.5 CL 100 97* 95* CO2 26 26 27 BUN 56* 66* 56* CREA 4.94* 5.54* 4.97* CALCIUM 8.8 8.8 9.2 ALBUMIN -- -- 3.7 GLU 137* 176* 265* Recent Labs Lab 10/28/1841510/27/18 0339 MG 1.7 1.6 Diagnostic Studies: Available data and images were reviewed personally. Significant results and findings are ad dressed here or in the Assessment and Plan. Silvina Alcantar MD Electronically signed: 10/28/2018 10:32 [facility]PHR[facility] Miky Jones MD - 10/28/2018 8:[address] [facility] HOSPITALIST PROGRESS NOTE Patient: David Romero Jr. [facility] : 1945: Age: 73 y.o. MedRec: [id number] PCP: Gregory Drummond MD Admission date: 10/26/2018 Hospital day # : 2 Physician author: Miky Villarreal MD Today: 10/28/2018 Assessment and Hospital Course (dot meyprob vs meyprobap) Hospital Course Note No notes on file Active Hospital Problems Diagnosis Pneumonia Clinical sepsis Acute respiratory failure with hypoxia Resolved Hospital Problems Diagnosis No resolved problems to display. Severe sepsis with septic shock (hypotension) due to Pneumonia With acute hypoxic respir failure requiring High Flow NC 6th nasal MRSA positive, is improved today, not SOB, 45% vapotherm ESRD on HD MWF Dr [place] Alcantar Right arm fistula and still has right sided HD tunneled catheter 6th we allowed to use one port of the right HD catheter as not able to place PICC on left Ischemic Cardiomyopathy with type 2 TX due to demand ischemia this admit Echo May 2018 EF 35-40 severe pulm HTN No chest pain and EKG is paced Prior CABG and AICD (replaced December 2017 [place]) Now follows with Dr Luo (comes to [place] from [facility]) 6th troponins fell as expected and still NO chest pain DM with ESRD 6th sugars reviewed Right arm AV fistula Right tunneled HD catheter Dr [place] Alcantar says NOT use except for HD PICC ordered on for left arm 6th PICC coiled into left subclav so promptly removed, we can use one port of the HD cathet er Photo October 28 Patient says lesion (medial aspect above left ankle, Phil mislabeled photo as above right ankle) started as blister 6 weeks ago and is getting smaller Consent for Photo The patient was advised that digital photos will be taken today of David Kerr .The patient verbally consented to having these photos taken for purposes of documenting his /her condition. The patient understands that the images will be stored in their medical rec ord. See Photographs in the Media tab which is located in Chart Review. The Document type is Clinical Image Haiku/Melissa. Some photographs may also appear in certain notes from this encounter. (dot meyaddendum tdnorefesh nownorefresh) (dot meyvent) (dot malnutattest is attestation for malnutrition) Plan Continue Abxs statin ASA SS insulin (dot meyaddendum tdnorefesh nownorefresh) (dot meytime meycritical meysign) Miky Villarreal MD 10/28/2018 8:44 [facility] Subjective CC came to ER due to fever 102 No chest pain No NV Still fainthemoptysis Not SOB 45 percent vapotherm Prior admit in Dec for Sepsis ROS See above Objective Exam General Alert NAD fluent NOT in distress Cardiac RRR Extremities scant oedema see photo of above LEFT ankle Lung BBIR Abdominal + BS Neuro alert fluent (dot meyexam) (dot meyvent) Serial weights: Filed Weights: 10/26/18 1251 10/27/18 0400 10/28/18 0333 10/28/18 0735 Weight: 103 kg (227 lb) 106.6 kg (235 lb 0.2 oz) 105.6 kg (232 lb 12.9 oz) 105.6 kg (232 lb 12.9 oz) Most recent weight: Input and output 2 shifts and 3 shifts: Wt Readings from Last 1 Encounters: 10/28/18 105.6 kg (232 lb 12.9 oz) I/O last 24 Hours: In: 1232.8 [P.O.:860; I.V.:267.8; IV Piggyback:105] Out: 629 [Urine:100] I/O last 3 completed shifts: In: 2029.8 [P.O.:1060; I.V.:267.8; IV Piggyback:702] Out: 629 [Urine:100] Vitals Ranges: Temp: [36.1 C (97 F)-37.1 C (98.8 F)] 36.1 C (97 F) Pulse: [70-81] 73 Resp: [11-28] 23 BP: (83-141)/(32-84) 100/74 Vitals: Temp: 36.1 C (97 F) BP: 100/74 Pulse: 73 Resp: 23 SpO2: 93 % SpO2 93 % on heated, high-flow nasal cannula at flow rate 25L/min Diet and Supplements Diet Diet renal; potassium 2 gm K; 60 gm CARB/Meal; fat and cholesterol modified; 1500 ml fluid ; Effective Now Number of Occurrences: Until Specified Order Comments: Send dry tray, no fluids please. Order Questions: Type Diet renal Renal modifications potassium 2 gm K Carbohydrate restrictions 60 gm CARB/Meal Fat or cholesterol modifications fat and cholesterol modified Fluid volume restictions 1500 ml fluid Objective Data Allergies: Allergies Allergen Reactions Morphine Other (See Comments) Became really mean Changes personality to "mean" "get mean" Current Medications: Current Facility-Administered Medications Medication Dose Route Frequency Provider Last Rate Last Dose acetaminophen (TYLENOL) tablet 650 mg 650 mg Oral Q4H PRN Hali Daniel MD albumin 25% IVPB 12.5 g 12.5 g Intravenous PRN Silvina Alcantar MD albuterol-ipratropium 2.5-0.5 mg/3 mL nebulizer solution 3 mL 3 mL Nebulization 4x Kandy ly Hali Daniel MD 3 mL at 10/28/18 0823 allopurinol (ZYLOPRIM) tablet 100 mg 100 mg Oral Daily Hali Daniel MD 100 m g at 10/27/18 0813 aspirin EC tablet 81 mg 81 mg Oral Daily Hali Daniel MD 81 mg at 10/27/18 0 813 atorvaSTATin (LIPITOR) tablet 40 mg 40 mg Oral Nightly Hali Daniel MD 40 mg at 10/27/18 2200 calcium carbonate (TUMS) chewable tablet 1,000 mg 1,000 mg Oral Q4H PRN Hali Daniel MD dextrose 50% injection 12.5 g 12.5 g Intravenous PRN Hali Daniel MD heparin 1,000 units/mL injection 1,500-6,000 Units 1,500-6,000 Units Intracatheter PRN Silvina Alcantar MD 3,600 Units at 10/27/18 2152 heparin 1,000 units/mL injection 500 Units 500 Units Intravenous With each dialysis Je tino Alcantar MD 500 Units at 10/27/18 1802 heparin 5,000 units/mL injection 5,000 Units 5,000 Units Subcutaneous 2 times per day Hali Daniel MD 5,000 Units at 10/27/18 0813 heparin in half-normal saline 50 units/mL infusion 200 Units/hr Intravenous Continuous Silvina Alcantar MD Stopped at 10/27/18 2140 HYDROcodone-acetaminophen (NORCO) 5-325 mg per tablet 1-2 tablet 1-2 tablet Oral Q4H P RN Hali Daniel MD insulin lispro (humaLOG KWIKPEN) injection (pen) 0-6 Units 0-6 Units Subcutaneous 4x D aily WC and HS Hali Daniel MD 2 Units at 10/27/18 1644 melatonin tablet 1.5 mg 1.5 mg Oral Nightly PRN Hali Daniel MD metoclopramide (REGLAN) 5 mg/mL injection 10 mg 10 mg Intravenous Q4H PRN Hali Daniel MD norepinephrine in saline (LEVOPHED) 16 mcg/mL infusion 1-30 mcg/min Intravenous Titrat ed Miky Villarreal MD Stopped at 10/28/18 0356 ondansetron (ZOFRAN) injection 4 mg 4 mg Intravenous Q6H PRN Hali Daniel MD pantoprazole (PROTONIX) DR tablet 40 mg 40 mg Oral QAM AC Hali Daniel MD 40 mg at 10/28/18 0703 piperacillin-tazobactam (ZOSYN) 3.375 g in sodium chloride 0.9% 100 mL IVPB 3.375 g In travenous Q12H Hali Daniel MD 25 mL/hr at 10/27/18 2304 3.375 g at 10/27/18 2304 polyethylene glycol (MIRALAX) powder 17 g 17 g Oral Daily PRN Hali Daniel MD senna (SENOKOT) tablet 8.6 mg 8.6 mg Oral BID PRN Hali Daniel MD sodium chloride 0.9% (NS) infusion 250 mL 250 mL Intravenous Q30 Min PRN Silvina Hale MD vancomycin 500 mg in sodium chloride 0.9% 100 mL IVPB 500 mg Intravenous Q12H Al li PharmD 100 mL/hr at 10/28/18 0606 500 mg at 10/28/18 0606 vancomycin per pharmacy Other Pharmacy Consult Hali Daniel MD Current Infusions: Heparin Infusion Stopped (10/27/182139) norepinephrine Stopped (10/28/18 0356) Hematology and anemia Recent Labs Lab 10/28/18 0417 10/27/18 0339 10/26/18 1309 WBC 12.4* 19.4* 13.9* HGB 11.4* 12.3* 13.4* HCT 36.1* 38.4* 40.2 PLT 146 147 166 NEUPCT -- 84.4* 90.0* MONPCT -- 6.2 5.5 Recent Labs Lab 10/26/18 1309 PROTIME 15.4* INR 1.2* No results for input(s): IRON, TIBC, PCTSAT, FERRITIN, TSH, [id number], FOLATE in the last 168 hours. Inflammatory markers Recent Labs Lab 10/26/18 1932 10/26/18 1309 LACTATE 1.5 2.6* PROCALCITONI -- 0.56* Chemistry Recent Labs Lab 10/28/18 04110/27/18 0339 10/26/18 1309 GLU 137* 176* 265* NA 131* 133* 131* K 4.6 4.9 4.5 CL 100 97* 95* CO2 26 26 27 ANIONGAP 5 10 9 BUN 56* 66* 56* CREA 4.94* 5.54* 4.97* GFRNONAA 12* 10* 12* CALCIUM 8.8 8.8 9.2 ALBUMIN -- -- 3.7 TOTALPROTEIN -- -- 7.4 BILITOT -- -- 1.0 ALKPHOS -- -- 160* ALT -- -- 21 AST -- -- 30 Recent Labs Lab 10/28/1841510/27/18 0339 MG 1.7 1.6 No results for input(s): AMYLASE, LIPASE in the last 168 hours. No results for input(s): TRIG, CHOL, HDL, LDL in the last 168 hours. No results for input(s): AMMONIA in the last 168 hours. Cardiology & Digoxin Recent Labs Lab 10/28/1841510/27/18 1605 10/27/18 0118 10/26/18 1901 10/26/18 1309 TROPONIN 0.19* 0.32* 0.42* 0.38* 0.15* BNP -- -- -- -- 600* ABG No results for input(s): PHART, PO2ART, HTO4DSO, NRK3HTT, BEART, L1VZTZUP in the last 168 h ours. No results for input(s): SPECSOURCE, PHPOCB, PCO2, PO2, HCO3, TCO2, BEART, FSJV5EID in the last 168 hours. Drug of overdose and abuse No results for input(s): ALCOHOL, ACTMN, SALICYLATE in the last 168 hours. No results for input(s): AMPHEQUAL, BARBITURATE, BENZSCR, CANNIBSCR, AMPHETAMINE, METHADSCR , OPIATESCR in the last 168 hours. Urinalysis Recent Labs Lab 10/26/18 1404 GLUCOSEU 50 mg/dL* WBCUA 10-15* RBCUA 0-2 SQUAMEPIUA 50-100* BACTERIAUA 1+* Point of care glucose Recent Labs Lab 10/28/18 0702 10/27/18 2030 10/27/18 1643 10/27/18 1139 10/27/18 0749 10/26/18 2116 POCGLU 81 193* 206* 132* 90 193* Micro results more choices using dot micro (below is last 7 days) Microbiology Results (Last 7) Date with Culture/Sensitivity) Procedure Component Value Units Date/Time Legionella, Ag, EIA, Qual, Urine [[id number]] Collected: 10/27/18 1536 Order Status: Sent Lab Status: In process Updated: 10/27/18 153 Specimen: Urine from Urine, Clean Catch Respiratory pathogen panel, NAAT [[id number]] (Normal) Collected: 10/27/18 1240 Order Status: Completed Lab Status: Final result Updated: 10/27/18 1530 Specimen: Tissue from Nasopharynx Influenza A PCR Not Detected Influenza A H1 Not Detected Influenza A H3 Not Detected Influenza B PCR Not Detected Parainfluenza 1 Not Detected Parainfluenza 2 Not Detected Parainfluenza 3 Not Detected Parainfluenza 4 Not Detected RSV A Not Detected RSV B Not Detected Adenovirus Not Detected Human Metapneumovirus Not Detected Rhinovirus/Enterovirus Not Detected Bordetella Pertussis PCR Not Detected Bordetella holmesii Not Detected Bordetella parapertussis/bronchiseptica NAAT Not Detected Culture, MRSA [[id number]] Collected: 10/26/18 1700 Order Status: Completed Lab Status: Final result Updated: 10/27/18 0800 Specimen: Tissue from Nares Culture 3+ Staphylococcus aureus,Methicillin resistant (MRSA) Comment: *INFECTION PREVENTION ALERT - MRSA* CONTACT PRECAUTIONS REQUIRED. Culture, Urine [[id number]] (Normal) Collected: 10/26/18 1404 Order Status: Completed Lab Status: Preliminary result Updated: 10/27/18 1138 Specimen: Urine from Urine, Clean Catch Culture No growth to date Culture, Blood [[id number]] (Normal) Collected: 10/26/18 1318 Order Status: Completed Lab Status: Preliminary result Updated: 10/27/18 0121 Specimen: Blood from Peripheral Blood Culture No growth: Monitored continually by instrument for 5 days Culture, Respiratory, Lower, Smear [[id number]] Collected: 10/26/18 1310 Order Status: Completed Lab Status: Preliminary result Updated: 10/27/18 1027 Specimen: Body Fluid from Sputum, Expectorated Culture Culture in progress... 3+ Usual Respiratory Florencia 4+ Alpha-hemolytic gram positive cocci Comment: Isolating for additional information. Gram Stain Result 3+ White Blood Cells 2+ Epithelial cells 2+ Gram positive cocci 3+ Gram positive bacilli 1+ Gram negative rods Culture, Blood [[id number]] (Normal) Collected: 10/26/18 1309 Order Status: Completed Lab Status: Preliminary result Updated: 10/27/18 0121 Specimen: Blood from Peripheral Blood Culture No growth: Monitored continually by instrument for 5 days Influenza A and B RNA, NAAT [[id number]] (Normal) Collected: 10/26/18 1309 Order Status: Completed Lab Status: Final result Updated: 10/26/18 1351 Specimen: Tissue from Nares, Left Influenza A PCR Negative Influenza B PCR Negative Radiology results (more choices using dot risresults) Ct Chest Wo Contrast Result Date: 10/26/2018 CT CHEST WO CONTRAST 10/26/2018 2:58 PM HISTORY: hypoxia. COMPARISON: 10/26/2018 chest x-ray NM OTOCOL: Axial images of the chest were obtained. Coronal and sagittal reformations were acqu ired. FINDINGS: LUNGS: Extensive areas of consolidation are seen involving bilateral lower l obes and in the inferior aspect of the left upper lobe and right middle lobe. No evidence fo r pneumothorax or pleural effusion. HEART: Significant cardiomegaly, coronary artery calcifi cations, and cardiac pacer leads are noted. VASCULATURE: Enlargement of the pulmonary arteri es measuring up to 4.2 cm. Mild fusiform enlargement of the ascending aorta measuring up to 4.2 cm. Right central catheter tip terminates in the right atrium. LYMPH NODES: Reactive enl argement of multiple mediastinal lymph nodes. MEDIASTINUM: Trachea and esophagus are normal . Neck base is normal. ABDOMEN: The upper abdomen demonstrates no acute findings. Micronodul ar contour of the liver suggestive of cirrhosis. SOFT TISSUES: Chest wall structures are nor mal. Bilateral gynecomastia. BONES: There are no acute osseous abnormalities. Multiple rib f racture deformities are seen in the right posterior ribs. Median sternotomy wires are presen t. IMPRESSION - Pronounced bilateral lower lung zone pneumonia. Fusiform enlargement of the pulmonary arteries which may suggest pulmonary artery hypertension. Significant cardiomegaly . Fusiform enlargement of the ascending aorta measuring up to 4.1 cm. Cirrhosis. Dictated an d Signed by: Fadi Shell MD Electronically signed: 10/26/2018 3:39 PM Xr Chest Ap Portable Result Date: 10/27/2018 CLINICAL INFORMATION: picc line placement WILL CALL WHEN READY. COMPARISON: 10/26/2018. FINDI NGS: Portable frontal chest radiograph. Lines: Stable positioning of the right chest tunnele d dual-lumen central venous catheter. Interval placement of a left PICC line with the line coiled in the left subclavian vein. Lungs: Unchanged aeration of the lungs with persistent a irspace opacity at the right lower lung and diffuse mild prominence of the interstitial lung markings. No pneumothorax. Heart/mediastinum: Stable cardiomegaly. Stable left chest cardia c pacer device. Median sternotomy changes. IMPRESSION - Left PICC line coiled in the mid lef t subclavian vein. Unchanged appearance of the lungs and heart. Dictated and Signed by: Codi Gatica MD Electronically signed: 10/27/2018 2:38 PM Xr Chest Ap Portable Result Date: 10/26/2018 CLINICAL INFORMATION: COUGH SHORTNESS OF BREATH FEVER (9 WEEKS TO 74 YEARS). COMPARISON: . FINDINGS: Portable frontal chest radiograph. Stable right chest tunneled dual-lume n central venous dialysis catheter. Lungs: Focal airspace opacity at the right lower lung. There is mild prominence of the initial lung markings, right greater than left. No pleural effusion or pneumothorax. Heart/mediastinum: Stable cardiomegaly. Median sternotomy changes . Left chest cardiac device appears stable. Bones: No acute osseous abnormality appreciated . IMPRESSION - Focal airspace disease at the right lower lung may represent pneumonia. Simil ar appearing cardiomegaly with probable mild pulmonary edema. Dictated and Signed by: Flaco Gatica MD Electronically signed: 10/26/2018 2:38 PM Reference. This is NOT part of the patient's formal assessment section. In the assessment or plan section of notes the author may date some of the subsections with a number such as "23" or "23" to indicate the date of that entry or event. In the example below the 1st line is the original entry and the subsequent lines indicate flowing updates to the subsection: Example assessment subsection (such as CHF or CP or Pneumonia) Patient is improved today with resolution of symptoms 24th Worse with recurrence of symptoms requiring further testing Portions of this chart may have been created with [employer] voice recognition software. Occasi onal wrong-word or sound-alike substitutions may have occurred due to the inherent al itations of voice recognition software. Please read the chart carefully and recognize, using context, where these substitutions have occurred Al Fernandez, Pharm D - 10/28/2018 5:45 AM PDT VANCOMYCIN PER PHARMACY PROTOCOL: AMS/Drug Name - vanco and zosyn Patient: David Romero Jr. [facility] [id number] Admit: 10/26/2018 12:36 RELEVANT ALLERGIES: no relavent 73 yrs old male patient admitted on 10/26/2018 for Fever, chills, cough, mild SOB Patient i s receiving vancomycin starting on 10/26/18 for HAP. Patient has a past medical history of Ar teriosclerotic cardiovascular disease; Chest pain; Claustrophobia; Dialysis patient (HCC); G out; Heart attack (HCC); Hemodialysis patient (HCC); Hypercholesteremia; Hyperlipidemia; Hyp ertension; Left arm pain; Pacemaker; Pulmonary hypertension (HCC); Sleep apnea; and Venous i nsufficiency. . Risk factors for MDR organisms include recent healthcare contact. HPI: ESRD (M-W-F), T2DM, CAD, ICM/Chronic Systolic CHF, AICD, EVITA, Gout, HTN and HLD who p resented with 2 day h/o fever (Tmax 102.6), chills, minimally productive cough and mild SOB. Pt denies sick contacts or recent travel. He reports he had HD with UF yesterday. He denies CP/abdominal pain. Admitted in 06/2018 for Sepsis/Pneumonia and ATN requiring HD. In the ER , febrile, hypoxic, leukocytosis and CXR showed RLL PNA. Antimicrobials - Current Antibiotic Dates of Therapy vanco 4/4- zosyn 4/4 Antimicrobials - Discontinued Antibiotic Dates of Therapy azithro 4/4 one dose ceftri 4/4 one dose Historical Vancomycin dosing (previous & current encounter): HD patient- pulse dose 1250mg Micro/Cultures/Diagnostics: Microbiology Results (Last 14 Days by Collected Date with Culture/Sensitivity) Procedure Component Value Units Date/Time Legionella, Ag, EIA, Qual, Urine [[id number]] Collected: 10/27/18 1536 Order Status: Sent Lab Status: In process Updated: 10/27/181535 Specimen: Urine from Urine, Clean Catch Respiratory pathogen panel, NAAT [[id number]] (Normal) Collected: 10/27/18 1240 Order Status: Completed Lab Status: Final result Updated: 10/27/18 1530 Specimen: Tissue from Nasopharynx Influenza A PCR Not Detected Influenza A H1 Not Detected Influenza A H3 Not Detected Influenza B PCR Not Detected Parainfluenza 1 Not Detected Parainfluenza 2 Not Detected Parainfluenza 3 Not Detected Parainfluenza 4 Not Detected RSV A Not Detected RSV B Not Detected Adenovirus Not Detected Human Metapneumovirus Not Detected Rhinovirus/Enterovirus Not Detected Bordetella Pertussis PCR Not Detected Bordetella holmesii Not Detected Bordetella parapertussis/bronchiseptica NAAT Not Detected Culture, MRSA [[id number]] Collected: 10/26/18 1700 Order Status: Completed Lab Status: Final result Updated: 10/27/18 0800 Specimen: Tissue from Nares Culture 3+ Staphylococcus aureus,Methicillin resistant (MRSA) Comment: *INFECTION PREVENTION ALERT - MRSA* CONTACT PRECAUTIONS REQUIRED. Culture, Urine [[id number]] (Normal) Collected: 10/26/18 1404 Order Status: Completed Lab Status: Preliminary result Updated: 10/27/18 1138 Specimen: Urine from Urine, Clean Catch Culture No growth to date Culture, Blood [[id number]] (Normal) Collected: 10/26/18 1318 Order Status: Completed Lab Status: Preliminary result Updated: 10/27/18 0121 Specimen: Blood from Peripheral Blood Culture No growth: Monitored continually by instrument for 5 days Culture, Respiratory, Lower, Smear [[id number]] Collected: 10/26/18 1310 Order Status: Completed Lab Status: Preliminary result Updated: 10/27/18 1027 Specimen: Body Fluid from Sputum, Expectorated Culture Culture in progress... 3+ Usual Respiratory Florencia 4+ Alpha-hemolytic gram positive cocci Comment: Isolating for additional information. Gram Stain Result 3+ White Blood Cells 2+ Epithelial cells 2+ Gram positive cocci 3+ Gram positive bacilli 1+ Gram negative rods Culture, Blood [[id number]] (Normal) Collected: 10/26/18 1309 Order Status: Completed Lab Status: Preliminary result Updated: 10/27/18 012 Specimen: Blood from Peripheral Blood Culture No growth: Monitored continually by instrument for 5 days Influenza A and B RNA, NAAT [[id number]] (Normal) Collected: 10/26/18 1309 Order Status: Completed Lab Status: Final result Updated: 10/26/18 1351 Specimen: Tissue from Nares, Left Influenza A PCR Negative Influenza B PCR Negative Relevant cultures from previous admits: Date Source Organisms Sensitivities none UA: 4/4- nitrite- negative, leukocyte esterase- trace, WBC 10-15, bacteria 1+ Admission Wt: Weight: 103 kg (227 lb) Current Wt: Weight: 105.6 kg (232 lb 12.9 oz) Min/Max Temp past 24 hours:Temp Av.8 C (98.2 F) Min: 36.4 C (97.5 F) Max: 3 7.1 C (98.8 F) Estimated Creatinine Clearance: 16 mL/min (A) (based on SCr of 4.94 mg/dL (H)). Intake/Output Summary (Last 24 hours) at 10/28/18 0545 Last data filed at 10/28/18 0356 Gross per 24 hour Intake 1127.8 ml Output 629 ml Net 498.8 ml Temp: [36.4 C (97.5 F)-37.1 C (98.8 F)] 37.1 C (98.8 F) Pulse: [70-81] 70 Resp: [11-28] 16 BP: (78-132)/(32-84) 120/46 Recent Labs Lab 10/28/18 0417 10/28/18 0416 10/27/18 0339 10/26/18 1932 10/26/18 1309 WBC 12.4* -- 19.4* -- 13.9* CREA -- 4.94* 5.54* -- 4.97* LACTATE -- -- -- 1.5 2.6* VANCORANDOM -- 12.3 -- -- -- PROCALCITONI -- -- -- -- 0.56* Imagin/4 chest XR - IMPRESSION - Focal airspace disease at the right lower lung may represent pn eumonia. 10/26 CT chest- IMPRESSION - Pronounced bilateral lower lung zone pneumonia. Date 10/26 10/27 10/28 Dialysis (yes/no) n y n Vancomycin level - 12.3 Vancomycin Dose 1250 mg tbd 500 mg Assessment: Vancomycin Day # 3 Other antibiotics: zosyn Target Trough: 15-20 mcg/ml for HAP WBC: leukocytosis; Renal: HD patient; Temp: febrile w/in last 24hr; Culture: urine: ngtd , sputum: 4+ alph hemolytic gram + cocci, blood: ngtd, nares:+ MRSA; VS: hypotensive on nore pi Prior to admission dialysis schedule: [facility] Vancomycin Dosing in HD patients: If post-hemodialysis vancomycin concentration is: - >20 mcg/mL: hold post-HD dose - 10-20 mcg/mL: 500 mg after HD - <10 mcg/mL: 750-1000 mg after HD Plan: 1. Vancomycin 500 mg IV x1 for level of 12.3 mcg/ml 2. Level due 4-6 hours after HD session ends per protocol. 3. Serum creatinine DAILY for first 3 days, then at least every 3 days while on vancomycin. 4. Will monitor renal function, clinical status, infection markers daily with troughs and d ose adjustment as needed. Definitions: For the purpose of this protocol, "trough" means a steady state trough before the 4th dose of the initial/new dosing regimen and "level" means all other levels drawn including before the 3rd dose References: Vancomycin dosing protocol IDSA guidelines Procalcitonin Algorithm Per P&T-approved Vancomycin Dosing and Monitoring Protocol Electronically signed by: Al Hodges, PharmD 10/28/2018 5:45 Nery Castelan RN - 10/27/2018 2:[address] left brachial picc line. Stick x 1 to gain acce ss. picc line threaded but coiled upon xray. Attempted to uncoil line but unable to, picc line was discontinued. [facility] WELLS notified.Electronically signed by Nery Puente RN at 11/2018 3:10 PM Angela Sarmiento PharmD - 10/27/2018 1:29 PM PDT VANCOMYCIN PER PHARMACY PROTOCOL: AMS/Drug Name - vanco and zosyn Patient: David Romero Jr. [facility] [id number] Admit: 10/26/2018 12:36 RELEVANT ALLERGIES: no relavent 73 yrs old male patient admitted on 10/26/2018 for Fever, chills, cough, mild SOB Patient i s receiving vancomycin starting on 10/26/18 for HAP. Patient has a past medical history of Ar teriosclerotic cardiovascular disease; Chest pain; Claustrophobia; Dialysis patient (HCC); G out; Heart attack (HCC); Hemodialysis patient (HCC); Hypercholesteremia; Hyperlipidemia; Hyp ertension; Left arm pain; Pacemaker; Pulmonary hypertension (HCC); Sleep apnea; and Venous i nsufficiency. . Risk factors for MDR organisms include recent healthcare contact. HPI: ESRD (M-W-F), T2DM, CAD, ICM/Chronic Systolic CHF, AICD, EVITA, Gout, HTN and HLD who p resented with 2 day h/o fever (Tmax 102.6), chills, minimally productive cough and mild SOB. Pt denies sick contacts or recent travel. He reports he had HD with UF yesterday. He denies CP/abdominal pain. Admitted in 06/2018 for Sepsis/Pneumonia and ATN requiring HD. In the ER , febrile, hypoxic, leukocytosis and CXR showed RLL PNA. Antimicrobials - Current Antibiotic Dates of Therapy vanco 10/26- zosyn 10/26 Antimicrobials - Discontinued Antibiotic Dates of Therapy azithro 10/26 one dose ceftri 10/26 one dose Historical Vancomycin dosing (previous & current encounter): HD patient- pulse dose 1250mg Micro/Cultures/Diagnostics: Microbiology Results (Last 14 Days by Collected Date with Culture/Sensitivity) Procedure Component Value Units Date/Time Respiratory pathogen panel, NAAT [[id number]] Collected: 10/27/18 1240 Order Status: Sent Lab Status: In process Updated: 10/27/18 1244 Specimen: Tissue from Nasopharynx Culture, MRSA [[id number]] Collected: 10/26/18 1700 Order Status: Completed Lab Status: Final result Updated: 10/27/18 0800 Specimen: Tissue from Nares Culture 3+ Staphylococcus aureus,Methicillin resistant (MRSA) Comment: *INFECTION PREVENTION ALERT - MRSA* CONTACT PRECAUTIONS REQUIRED. Legionella, Ag, EIA, Qual, Urine [[id number]] Order Status: Sent Lab Status: No result Specimen: Urine from Urine, Clean Catch Culture, Urine [[id number]] (Normal) Collected: 10/26/18 1404 Order Status: Completed Lab Status: Preliminary result Updated: 10/27/18 1138 Specimen: Urine from Urine, Clean Catch Culture No growth to date Culture, Blood [[id number]] (Normal) Collected: 10/26/18 1318 Order Status: Completed Lab Status: Preliminary result Updated: 10/27/18 0121 Specimen: Blood from Peripheral Blood Culture No growth: Monitored continually by instrument for 5 days Culture, Respiratory, Lower, Smear [[id number]] Collected: 10/26/18 1310 Order Status: Completed Lab Status: Preliminary result Updated: 10/27/18 1027 Specimen: Body Fluid from Sputum, Expectorated Culture Culture in progress... 3+ Usual Respiratory Florencia 4+ Alpha-hemolytic gram positive cocci Comment: Isolating for additional information. Gram Stain Result 3+ White Blood Cells 2+ Epithelial cells 2+ Gram positive cocci 3+ Gram positive bacilli 1+ Gram negative rods Culture, Blood [[id number]] (Normal) Collected: 10/26/18 1309 Order Status: Completed Lab Status: Preliminary result Updated: 10/27/18 0121 Specimen: Blood from Peripheral Blood Culture No growth: Monitored continually by instrument for 5 days Influenza A and B RNA, NAAT [[id number]] (Normal) Collected: 10/26/18 1309 Order Status: Completed Lab Status: Final result Updated: 10/26/18 1351 Specimen: Tissue from Nares, Left Influenza A PCR Negative Influenza B PCR Negative Relevant cultures from previous admits: Date Source Organisms Sensitivities none UA: 10/26- nitrite- negative, leukocyte esterase- trace, WBC 10-15, bacteria 1+ Admission Wt: Weight: 103 kg (227 lb) Current Wt: Weight: 106.6 kg (235 lb 0.2 oz) Min/Max Temp past 24 hours:Temp Av.8 C (98.2 F) Min: 36.1 C (97 F) Max: 38 C (100.4 F) Estimated Creatinine Clearance: 14 mL/min (A) (based on SCr of 5.54 mg/dL (H)). Intake/Output Summary (Last 24 hours) at 10/27/18 1329 Last data filed at 10/27/18 0500 Gross per 24 hour Intake 847 ml Output 0 ml Net 847 ml Temp: [36.1 C (97 F)-38 C (100.4 F)] 36.4 C (97.5 F) Pulse: [70-76] 70 Resp: [10-25] 24 BP: (78-125)/(43-96) 96/53 Recent Labs Lab 10/27/18 0339 10/26/18 1932 10/26/18 1309 WBC 19.4* -- 13.9* CREA 5.54* -- 4.97* LACTATE -- 1.5 2.6* PROCALCITONI -- -- 0.56* Imagin/4 chest XR - IMPRESSION - Focal airspace disease at the right lower lung may represent pn eumonia. 10/26 CT chest- IMPRESSION - Pronounced bilateral lower lung zone pneumonia. Date 10/26 10/27 Dialysis (yes/no) n y Vancomycin level - Vancomycin Dose 1250 mg tbd Assessment: Vancomycin Day # 2 Other antibiotics: zosyn Target Trough: 15-20 mcg/ml for HAP WBC: leukocytosis; Renal: HD patient; Temp: febrile w/in last 24hr; Culture: urine: ngtd , sputum: 4+ alph hemolytic gram + cocci, blood: ngtd, nares:+ MRSA; VS: hypotensive on nore pi Prior to admission dialysis schedule: F Vancomycin Dosing in HD patients: If post-hemodialysis vancomycin concentration is: - >20 mcg/mL: hold post-HD dose - 10-20 mcg/mL: 500 mg after HD - <10 mcg/mL: 750-1000 mg after HD Plan: 1. Vanco load of 1250 mg given 10/26. Will receive HD 10/27. 2. Level due 4-6 hours after HD session ends per protocol. 3. Serum creatinine DAILY for first 3 days, then at least every 3 days while on vancomycin. 4. Will monitor renal function, clinical status, infection markers daily with troughs and d ose adjustment as needed. Definitions: For the purpose of this protocol, "trough" means a steady state trough before the 4th dose of the initial/new dosing regimen and "level" means all other levels drawn including before the 3rd dose References: Vancomycin dosing protocol IDSA guidelines Procalcitonin Algorithm Per P&T-approved Vancomycin Dosing and Monitoring Protocol Electronically signed by: Angela Clark PharmD 10/27/2018 13:29 Nery Castelan RN - 10/27/2018 12:07 PM PDTAssessed for picc line placement right arm with AV fistula. Lef t chest with pacemaker/AICD replaced in December 2017. Discussed with Dr. Wolf about fairly r ecent pacemaker placement and feeling uncomfortable placing a picc on that side. Agreed to call pts independent consultant Dr. Luo to get her recommendation. Dr. Luo nurse returned call stat ing that Dr. Luo says there is no contraindications to place the picc. Miky Jones MD - 10/27/2018 8:10 AM PD T [place] HOSPITALIST PROGRESS NOTE Patient: David Kerr : 1945: Age: 73 y.o. MedRec: [id number] PCP: Gregory Drummond MD Admission date: 10/26/2018 Hospital day # : 1 Physician author: Miky Villarreal MD Today: 10/27/2018 Assessment and Hospital Course (dot meyprob vs meyprobap) Hospital Course Note No notes on file Active Hospital Problems Diagnosis Pneumonia Clinical sepsis Acute respiratory failure with hypoxia Resolved Hospital Problems Diagnosis No resolved problems to display. Severe sepsis with septic shock (hypotension) due to Pneumonia With acute hypoxic respir failure requiring High Flow NC ESRD on HD [facility] Dr Chapincito Alcantar Right arm fistula and still has right sided HD tunneled catheter Ischemic Cardiomyopathy with type 2 TX due to demand ischemia this admit Echo May 2018 EF 35-40 severe pulm HTN No chest pain and EKG is paced Prior CABG and AICD (replaced December 2017 [place]) Now follows with Dr Luo (comes to [place] from [facility]) DM with ESRD Right arm AV fistula Right tunneled HD catheter Dr Chapincito Alcantar says NOT use except for HD PICC ordered on for left arm (dot meyaddendum tdnorefesh nownorefresh) (dot meyvent) (dot malnutattest is attestation for malnutrition) Plan Spoke with Dr Chapincito Alcantar Discussed Dxs with patient and Pressor Follow labs Left arm PICC ordered Continue Abxs statin ASA SS insulin Patient is critically ill and critical care time now exceeds 35 minutes. (dot meyaddendum tdnorefesh nownorefresh) (dot meytime meycritical meysign) Miky Villarreal MD 10/27/2018 8:10 [facility] Subjective CC came to ER due to fever 102 Found to have sepsis pneumonia No chest pain No NV Faint hemoptysis Little bit of SOB Chornic cough but worse Prior admit in Dec for Sepsis ROS See above Objective Exam General Alert NAD fluent NOT in distress Cardiac RRR Extremities scant oedema Lung BBIR Abdominal + BS Neuro alert fluent (dot meyexam) (dot meyvent) Serial weights: Filed Weights: 10/26/18 1251 10/27/18 0400 Weight: 103 kg (227 lb) 106.6 kg (235 lb 0.2 oz) Most recent weight: Input and output 2 shifts and 3 shifts: Wt Readings from Last 1 Encounters: 10/27/18 106.6 kg (235 lb 0.2 oz) I/O last 24 Hours: In: 847 [P.O.:200; IV Piggyback:647] Out: - I/O last 3 completed shifts: In: 847 [P.O.:200; IV Piggyback:647] Out: - Vitals Ranges: Temp: [36.1 C (97 F)-38.1 C (100.6 F)] 36.4 C (97.5 F) Pulse: [70-76] 70 Resp: [10-25] 22 BP: (82-125)/(41-96) 82/53 Vitals: Temp: 36.4 C (97.5 F) BP: (!) 82/53 Pulse: 70 Resp: 22 SpO2: 9 3 % SpO2 93 % on high-flow nasal cannula at flow rate 25L/min Diet and Supplements Diet Diet renal; 60 gm CARB/Meal; fat and cholesterol modified; 1800 ml fluid; Effective Now Number of Occurrences: Until Specified Order Questions: Type Diet renal Carbohydrate restrictions 60 gm CARB/Meal Fat or cholesterol modifications fat and cholesterol modified Fluid volume restictions 1800 ml fluid Objective Data Allergies: Allergies Allergen Reactions Morphine Other (See Comments) Became really mean Changes personality to "mean" "get mean" Current Medications: Current Facility-Administered Medications Medication Dose Route Frequency Provider Last Rate Last Dose acetaminophen (TYLENOL) tablet 650 mg 650 mg Oral Q4H PRN Hali Daniel MD albuterol-ipratropium 2.5-0.5 mg/3 mL nebulizer solution 3 mL 3 mL Nebulization 4x Kandy ly Hali Daniel MD 3 mL at 10/26/182006 allopurinol (ZYLOPRIM) tablet 100 mg 100 mg Oral Daily Hali Daniel MD alteplase (CATHFLO ACTIVASE) injection 2 mg 2 mg Intracatheter PRN Miky Villarreal MD aspirin EC tablet 81 mg 81 mg Oral Daily Hali Daniel MD 81 mg at 10/26/18 1 814 atorvaSTATin (LIPITOR) tablet 40 mg 40 mg Oral Nightly Hali Daniel MD 40 mg at 10/26/182111 calcium carbonate (TUMS) chewable tablet 1,000 mg 1,000 mg Oral Q4H PRN Hali Daniel MD dextrose 50% injection 12.5 g 12.5 g Intravenous PRN Hali Daniel MD heparin 5,000 units/mL injection 5,000 Units 5,000 Units Subcutaneous 2 times per day Hali Daniel MD 5,000 Units at 10/26/18 2113 HYDROcodone-acetaminophen (NORCO) 5-325 mg per tablet 1-2 tablet 1-2 tablet Oral Q4H P RN Hali Daniel MD insulin lispro (humaLOG KWIKPEN) injection (pen) 0-6 Units 0-6 Units Subcutaneous 4x D aily WC and HS Hali Daniel MD 1 Units at 10/26/18 1814 melatonin tablet 1.5 mg 1.5 mg Oral Nightly PRN Hali Daniel MD metoclopramide (REGLAN) 5 mg/mL injection 10 mg 10 mg Intravenous Q4H PRN Hali Daniel MD norepinephrine in saline (LEVOPHED) 16 mcg/mL infusion 1-30 mcg/min Intravenous Titrat ed Miky Villarreal MD ondansetron (ZOFRAN) injection 4 mg 4 mg Intravenous Q6H PRN Hali Daniel MD pantoprazole (PROTONIX) DR tablet 40 mg 40 mg Oral QAM AC Hali Daniel MD 40 mg at 10/27/18 0630 piperacillin-tazobactam (ZOSYN) 3.375 g in sodium chloride 0.9% 100 mL IVPB 3.375 g In travenous Q12H Hali Daniel MD 25 mL/hr at 10/26/18 2305 3.375 g at 10/26/18 2305 polyethylene glycol (MIRALAX) powder 17 g 17 g Oral Daily PRN Hali Daniel MD senna (SENOKOT) tablet 8.6 mg 8.6 mg Oral BID PRN Hali Daniel MD vancomycin per pharmacy Other Pharmacy Consult aHli Daniel MD Current Infusions: norepinephrine Hematology and anemia Recent Labs Lab 10/27/18 0339 10/26/18 1309 WBC 19.4* 13.9* HGB 12.3* 13.4* HCT 38.4* 40.2 PLT 147 166 NEUPCT 84.4* 90.0* MONPCT 6.2 5.5 Recent Labs Lab 10/26/18 1309 PROTIME 15.4* INR 1.2* No results for input(s): IRON, TIBC, PCTSAT, FERRITIN, TSH, [id number], FOLATE in the last 168 hours. Inflammatory markers Recent Labs Lab 10/26/18 1932 10/26/18 1309 LACTATE 1.5 2.6* PROCALCITONI -- 0.56* Chemistry Recent Labs Lab 10/27/18 0339 10/26/18 1309 GLU 176* 265* NA 133* 131* K 4.9 4.5 CL 97* 95* CO2 26 27 ANIONGAP 10 9 BUN 66* 56* CREA 5.54* 4.97* GFRNONAA 10* 12* CALCIUM 8.8 9.2 ALBUMIN -- 3.7 TOTALPROTEIN -- 7.4 BILITOT -- 1.0 ALKPHOS -- 160* ALT -- 21 AST -- 30 Recent Labs Lab 10/27/18 0339 MG 1.6 No results for input(s): AMYLASE, LIPASE in the last 168 hours. No results for input(s): TRIG, CHOL, HDL, LDL in the last 168 hours. No results for input(s): AMMONIA in the last 168 hours. Cardiology & Digoxin Recent Labs Lab 10/27/18 0118 10/26/18 1901 10/26/18 1309 TROPONIN 0.42* 0.38* 0.15* BNP -- -- 600* ABG No results for input(s): PHART, PO2ART, TDS1JDY, DDV0AOL, BEART, L8ZHDUJI in the last 168 h ours. No results for input(s): SPECSOURCE, PHPOCB, PCO2, PO2, HCO3, TCO2, BEART, VBUI4ZHR in the last 168 hours. Drug of overdose and abuse No results for input(s): ALCOHOL, ACTMN, SALICYLATE in the last 168 hours. No results for input(s): AMPHEQUAL, BARBITURATE, BENZSCR, CANNIBSCR, AMPHETAMINE, METHADSCR , OPIATESCR in the last 168 hours. Urinalysis Recent Labs Lab 10/26/18 1404 GLUCOSEU 50 mg/dL* WBCUA 10-15* RBCUA 0-2 SQUAMEPIUA 50-100* BACTERIAUA 1+* Point of care glucose Recent Labs Lab 10/27/18 0749 10/26/18 2116 10/26/18 1816 POCGLU 90 193* 185* Micro results more choices using dot micro (below is last 7 days) Microbiology Results (Last 7) Date with Culture/Sensitivity) Procedure Component Value Units Date/Time Culture, MRSA [[id number]] Collected: 10/26/18 1700 Order Status: Completed Lab Status: Final result Updated: 10/27/18 0800 Specimen: Tissue from Nares Culture 3+ Staphylococcus aureus,Methicillin resistant (MRSA) Comment: *INFECTION PREVENTION ALERT - MRSA* CONTACT PRECAUTIONS REQUIRED. Respiratory pathogen panel, NAAT [[id number]] Order Status: Sent Lab Status: No result Specimen: Tissue from Nasopharynx Legionella, Ag, EIA, Qual, Urine [[id number]] Order Status: Sent Lab Status: No result Specimen: Urine from Urine, Clean Catch Culture, Urine [[id number]] Collected: 10/26/18 1404 Order Status: Sent Lab Status: In process Updated: 10/26/18 1430 Specimen: Urine from Urine, Clean Catch Culture, Blood [[id number]] (Normal) Collected: 10/26/18 1318 Order Status: Completed Lab Status: Preliminary result Updated: 10/27/18 0121 Specimen: Blood from Peripheral Blood Culture No growth: Monitored continually by instrument for 5 days Culture, Respiratory, Lower, Smear [[id number]] Collected: 10/26/18 1310 Order Status: Sent Lab Status: In process Updated: 10/26/18 1315 Specimen: Body Fluid from Sputum, Expectorated Culture, Blood [[id number]] (Normal) Collected: 10/26/18 1309 Order Status: Completed Lab Status: Preliminary result Updated: 10/27/18 0121 Specimen: Blood from Peripheral Blood Culture No growth: Monitored continually by instrument for 5 days Influenza A and B RNA, NAAT [[id number]] (Normal) Collected: 10/26/18 1309 Order Status: Completed Lab Status: Final result Updated: 10/26/18 1351 Specimen: Tissue from Nares, Left Influenza A PCR Negative Influenza B PCR Negative Radiology results (more choices using dot risresults) Ct Chest Wo Contrast Result Date: 10/26/2018 CT CHEST WO CONTRAST 10/26/2018 2:58 PM HISTORY: hypoxia. COMPARISON: 10/26/2018 chest x-ray NM OTOCOL: Axial images of the chest were obtained. Coronal and sagittal reformations were acqu ired. FINDINGS: LUNGS: Extensive areas of consolidation are seen involving bilateral lower l obes and in the inferior aspect of the left upper lobe and right middle lobe. No evidence fo r pneumothorax or pleural effusion. HEART: Significant cardiomegaly, coronary artery calcifi cations, and cardiac pacer leads are noted. VASCULATURE: Enlargement of the pulmonary arteri es measuring up to 4.2 cm. Mild fusiform enlargement of the ascending aorta measuring up to 4.2 cm. Right central catheter tip terminates in the right atrium. LYMPH NODES: Reactive enl argement of multiple mediastinal lymph nodes. MEDIASTINUM: Trachea and esophagus are normal . Neck base is normal. ABDOMEN: The upper abdomen demonstrates no acute findings. Micronodul ar contour of the liver suggestive of cirrhosis. SOFT TISSUES: Chest wall structures are nor mal. Bilateral gynecomastia. BONES: There are no acute osseous abnormalities. Multiple rib f racture deformities are seen in the right posterior ribs. Median sternotomy wires are presen t. IMPRESSION - Pronounced bilateral lower lung zone pneumonia. Fusiform enlargement of the pulmonary arteries which may suggest pulmonary artery hypertension. Significant cardiomegaly . Fusiform enlargement of the ascending aorta measuring up to 4.1 cm. Cirrhosis. Dictated an d Signed by: Fadi Shell MD Electronically signed: 10/26/2018 3:39 PM Xr Chest Ap Portable Result Date: 10/26/2018 CLINICAL INFORMATION: COUGH SHORTNESS OF BREATH FEVER (9 WEEKS TO 74 YEARS). COMPARISON: . FINDINGS: Portable frontal chest radiograph. Stable right chest tunneled dual-lume n central venous dialysis catheter. Lungs: Focal airspace opacity at the right lower lung. There is mild prominence of the initial lung markings, right greater than left. No pleural effusion or pneumothorax. Heart/mediastinum: Stable cardiomegaly. Median sternotomy changes . Left chest cardiac device appears stable. Bones: No acute osseous abnormality appreciated . IMPRESSION - Focal airspace disease at the right lower lung may represent pneumonia. Simil ar appearing cardiomegaly with probable mild pulmonary edema. Dictated and Signed by: Flaco Gatica MD Electronically signed: 10/26/2018 2:38 PM Reference. This is NOT part of the patient's formal assessment section. In the assessment or plan section of notes the author may date some of the subsections with a number such as "" or "" to indicate the date of that entry or event. In the example below the 1st line is the original entry and the subsequent lines indicate flowing updates to the subsection: Example assessment subsection (such as CHF or CP or Pneumonia) Patient is improved today with resolution of symptoms 24th Worse with recurrence of symptoms requiring further testing Portions of this chart may have been created with [employer] voice recognition software. Occasi onal wrong-word or sound-alike substitutions may have occurred due to the inherent al itations of voice recognition software. Please read the chart carefully and recognize, using context, where these substitutions have occurred Wing Bo PharmD - 10/26/2018 7:31 PM PDT VANCOMYCIN PER PHARMACY PROTOCOL: AMS/Drug Name - vanco and zosyn Patient: David Romero Jr. [facility] [phone] Admit: 10/26/2018 12:36 RELEVANT ALLERGIES: no relavent 73 yrs old male patient admitted on 10/26/2018 for Fever, chills, cough, mild SOB Patient i s receiving vancomycin starting on 10/26/18 for HAP. Patient has a past medical history of Ar teriosclerotic cardiovascular disease; Chest pain; Claustrophobia; Dialysis patient (HCC); G out; Heart attack (HCC); Hemodialysis patient (HCC); Hypercholesteremia; Hyperlipidemia; Hyp ertension; Left arm pain; Pacemaker; Pulmonary hypertension (HCC); Sleep apnea; and Venous i nsufficiency. . Risk factors for MDR organisms include recent healthcare contact. HPI: This is a 73 y.o. male with a history of ESRD (M-W-F), T2DM, CAD, ICM/Chronic Systolic CHF, AICD, EVITA, Gout, HTN and HLD who presented with 2 day h/o fever (Tmax 102.6), chills, minimally productive cough and mild SOB. Pt denies sick contacts or recent travel. He report s he had HD with UF yesterday. He denies CP/abdominal pain. Admitted in 06/2018 for Sepsis/P neumonia and ATN requiring HD. In the ER, febrile, hypoxic, leukocytosis and CXR showed RLL PNA. Antimicrobials - Current Antibiotic Dates of Therapy vanco 10/26- zosyn 10/26 Antimicrobials - Discontinued Antibiotic Dates of Therapy azithro one dose ceftri 4/4 one dose Historical Vancomycin dosing (previous & current encounter): HD patient- pulse dose 1250mg Micro/Cultures/Diagnostics: Microbiology Results (Last 14 Days by Collected Date with Culture/Sensitivity) Procedure Component Value Units Date/Time Culture, MRSA [[id number]] Collected: 10/26/18 1700 Order Status: Sent Lab Status: In process Updated: 10/26/18 1723 Specimen: Tissue from Nares Respiratory pathogen panel, NAAT [[id number]] Order Status: Sent Lab Status: No result Specimen: Tissue from Nasopharynx Legionella, Ag, EIA, Qual, Urine [[id number]] Order Status: Sent Lab Status: No result Specimen: Urine from Urine, Clean Catch Culture, Urine [[id number]] Collected: 10/26/18 1404 Order Status: Sent Lab Status: In process Updated: 10/26/18 1430 Specimen: Urine from Urine, Clean Catch Culture, Blood [[id number]] Collected: 10/26/18 1318 Order Status: Sent Lab Status: In process Updated: 10/26/18 1320 Specimen: Blood from Peripheral Blood Culture, Respiratory, Lower, Smear [[id number]] Collected: 10/26/18 1310 Order Status: Sent Lab Status: In process Updated: 10/26/18 1315 Specimen: Body Fluid from Sputum, Expectorated Culture, Blood [[id number]] Collected: 10/26/18 1309 Order Status: Sent Lab Status: In process Updated: 10/26/18 1314 Specimen: Blood from Peripheral Blood Influenza A and B RNA, NAAT [[id number]] (Normal) Collected: 10/26/18 1309 Order Status: Completed Lab Status: Final result Updated: 10/26/18 1351 Specimen: Tissue from Nares, Left Influenza A PCR Negative Influenza B PCR Negative Relevant cultures from previous admits: Date Source Organisms Sensitivities none UA: 4/4- nitrite- negative, leukocyte esterase- trace, WBC 10-15, bacteria 1+ Admission Wt: Weight: 103 kg (227 lb) Current Wt: Weight: 103 kg (227 lb) Min/Max Temp past 24 hours:Temp Av.1 C (100.5 F) Min: 38 C (100.4 F) Max: 3 8.1 C (100.6 F) Estimated Creatinine Clearance: 15 mL/min (A) (based on SCr of 4.97 mg/dL (H)). Intake/Output Summary (Last 24 hours) at 10/26/181930 Last data filed at 10/26/18 1452 Gross per 24 hour Intake 50 ml Output 0 ml Net 50 ml Temp: [38 C (100.4 F)-38.1 C (100.6 F)] 38 C (100.4 F) Pulse: [70-76] 72 Resp: [10-25] 22 BP: (91-125)/(41-96) 99/48 Recent Labs Lab 10/26/18 1309 WBC 13.9* CREA 4.97* LACTATE 2.6* PROCALCITONI 0.56* Imagin/4 chest XR - IMPRESSION - Focal airspace disease at the right lower lung may represent pneumonia. 10/26 CT chest- IMPRESSION - Pronounced bilateral lower lung zone pneumonia. Date 10/26 Time of Vancomycin draw -- Vancomycin result -- LEVEL or TROUGH Serum Creatinine HD patient CrCl (mL/min) HD patient Vanco load/bolus 1250 mg Vanco dose - current -- Vanco dose - new pulse Assessment: Vancomycin Day # 1 Other antibiotics: zosyn Target Trough: 15-20 mcg/ml for HAP WBC: leukocytosis; Renal: HD patient; Temp: febrile; Culture: urine, sputum, blood, nare s pending; VS: stable Renal function: UOP: HD patient Plan: 1. Vanco load of 1250mg. Future pulse doses to be determined by vanco levels 4 hours post each HD session. 2. Serum creatinine DAILY for first 3 days, then at least every 3 days while on vancomycin. 3. Will monitor renal function, clinical status, infection markers daily with troughs and d ose adjustment as needed. Definitions: For the purpose of this protocol, "trough" means a steady state trough before the 4th dose of the initial/new dosing regimen and "level" means all other levels drawn including before the 3rd dose References: Vancomycin dosing protocol IDSA guidelines Procalcitonin Algorithm Per P&T-approved Vancomycin Dosing and Monitoring Protocol Electronically signed by: Wing Torres PharmD 10/26/2018 19:31 documented in this encounter Plan of Treatment +--------+ + + + + | Date | Type | Specialty | Care Team | Description | +--------+ + + + + | 07/16/ | Off-Site | Nephrology | Maty Tian | | | 2018 | Visit | | DO Rolan [address] [place] [address] | | | | | | [address] | | | | | | [place] | | | | | | [id number] | | | | | | | | +--------+ + + + + | 09/25/ | Office | Cardiology | Sheldon Spence | | | 2019 | Visit | | MD [address] | | | | | | [address] [facility] | | | | | | [place] | | | | | | [phone] | | | | | | | [...] | | | | | [place], [place] | | | | | | [id number] | | | | | | | | +--------+ + + + + documented as of this encounter Procedures + +--------+ + + + | Procedure Name | Priori | Date/Time | Associated Diagnosis | Comments | | | ty | | | | + +--------+ + + + | EXTRA NURA MENA | Routin | 11/01/2018 | | Results for this | | TUBE | e | 7:46 AM | | procedure are in the | | | | PDT | | results section. | + +--------+ + + + | POC GLUCOSE | Routin | 11/01/2018 | | Results for this | | | e | 6:45 AM | | procedure are in the | | | | PDT | | results section. | + +--------+ + + + | PHOSPHORUS | Routin | 11/01/2018 | | Results for this | | | e | 6:21 AM | | procedure are in the | | | | PDT | | results section. | + +--------+ + + + | MAGNESIUM | Routin | 11/01/2018 | | Results for this | | | e | 6:21 AM | | procedure are in the | | | | PDT | | results section. | + +--------+ + + + | BASIC METABOLIC | Routin | 11/01/2018 | | Results for this | | PANEL | e | 6:21 AM | | procedure are in the | | | | PDT | | results section. | + +--------+ + + + | CBC WITH | Routin | 11/01/2018 | | Results for this | | DIFFERENTIAL | e | 4:49 AM | | procedure are in the | | | | PDT | | results section. | + +--------+ + + + | POC GLUCOSE | Routin | 10/31/2018 | | Results for this | | | e | 9:48 PM | | procedure are in the | | | | PDT | | results section. | + +--------+ + + + | POC GLUCOSE | Routin | 10/31/2018 | | Results for this | | | e | 4:54 PM | | procedure are in the | | | | PDT | | results section. | + +--------+ + + + | POC GLUCOSE | Routin | 10/31/2018 | | Results for this | | | e | 11:52 AM | | procedure are in the | | | | PDT | | results section. | + +--------+ + + + | PERFORM HOME O2 | Routin | 10/31/2018 | | | | EVALUATION | e | 10:41 AM | | | | | | PDT | | | + +--------+ + + + | ECHO COMPLETE W | Routin | 10/31/2018 | | Results for this | | CONTRAST | e | 9:14 AM | | procedure are in the | | | | PDT | | results section. | + +--------+ + + + | POC GLUCOSE | Routin | 10/31/2018 | | Results for this | | | e | 6:03 AM | | procedure are in the | | | | PDT | | results section. | + +--------+ + + + | CBC WITH | Routin | 10/31/2018 | | Results for this | | DIFFERENTIAL | e | 4:29 AM | | procedure are in the | | | | PDT | | results section. | + +--------+ + + + | PHOSPHORUS | Routin | 10/31/2018 | | Results for this | | | e | 4:29 AM | | procedure are in the | | | | PDT | | results section. | + +--------+ + + + | MAGNESIUM | Routin | 10/31/2018 | | Results for this | | | e | 4:29 AM | | procedure are in the | | | | PDT | | results section. | + +--------+ + + + | BASIC METABOLIC | Routin | 10/31/2018 | | Results for this | | PANEL | e | 4:29 AM | | procedure are in the | | | | PDT | | results section. | + +--------+ + + + | POC GLUCOSE | Routin | 10/30/2018 | | Results for this | | | e | 10:55 PM | | procedure are in the | | | | PDT | | results section. | + +--------+ + + + | POC GLUCOSE | Routin | 10/30/2018 | | Results for this | | | e | 5:22 PM | | procedure are in the | | | | PDT | | results section. | + +--------+ + + + | POC GLUCOSE | Routin | 10/30/2018 | | Results for this | | | e | 11:33 AM | | procedure are in the | | | | PDT | | results section. | + +--------+ + + + | NM NUCLEAR STRESS | Routin | 10/30/2018 | | Results for this | | TEST (PHARMACOLOGIC | e | 11:20 AM | | procedure are in the | | - VASODILATOR) | | PDT | | results section. | + +--------+ + + + | POC GLUCOSE | Routin | 10/30/2018 | | Results for this | | | e | 8:00 AM | | procedure are in the | | | | PDT | | results section. | + +--------+ + + + | CBC NO DIFFERENTIAL | Routin | 10/30/2018 | | Results for this | | | e | 4:12 AM | | procedure are in the | | | | PDT | | results section. | + +--------+ + + + | MAGNESIUM | Routin | 10/30/2018 | | Results for this | | | e | 4:12 AM | | procedure are in the | | | | PDT | | results section. | + +--------+ + + + | VANCOMYCIN LEVEL | Routin | 10/30/2018 | | Results for this | | | e | 4:12 AM | | procedure are in the | | | | PDT | | results section. | + +--------+ + + + | BASIC METABOLIC | Routin | 10/30/2018 | | Results for this | | PANEL | e | 4:12 AM | | procedure are in the | | | | PDT | | results section. | + +--------+ + + + | POC GLUCOSE | Routin | 10/29/2018 | | Results for this | | | e | 7:55 PM | | procedure are in the | | | | PDT | | results section. | + +--------+ + + + | EXTRA LAVENDER TOP | Routin | 10/29/2018 | | Results for this | | TUBE | e | 5:56 PM | | procedure are in the | | | | PDT | | results section. | + +--------+ + + + | VANCOMYCIN LEVEL | Timed | 10/29/2018 | | Results for this | | | | 5:55 PM | | procedure are in the | | | | PDT | | results section. | + +--------+ + + + | POC GLUCOSE | Routin | 10/29/2018 | | Results for this | | | e | 5:06 PM | | procedure are in the | | | | PDT | | results section. | + +--------+ + + + | POC GLUCOSE | Routin | 10/29/2018 | | Results for this | | | e | 11:42 AM | | procedure are in the | | | | PDT | | results section. | + +--------+ + + + | POC GLUCOSE | Routin | 10/29/2018 | | Results for this | | | e | 6:33 AM | | procedure are in the | | | | PDT | | results section. | + +--------+ + + + | CBC NO DIFFERENTIAL | Routin | 10/29/2018 | | Results for this | | | e | 4:25 AM | | procedure are in the | | | | PDT | | results section. | + +--------+ + + + | MAGNESIUM | Routin | 10/29/2018 | | Results for this | | | e | 4:25 AM | | procedure are in the | | | | PDT | | results section. | + +--------+ + + + | BASIC METABOLIC | Routin | 10/29/2018 | | Results for this | | PANEL | e | 4:25 AM | | procedure are in the | | | | PDT | | results section. | + +--------+ + + + | POC GLUCOSE | Routin | 10/28/2018 | | Results for this | | | e | 9:54 PM | | procedure are in the | | | | PDT | | results section. | + +--------+ + + + | POC GLUCOSE | Routin | 10/28/2018 | | Results for this | | | e | 4:29 PM | | procedure are in the | | | | PDT | | results section. | + +--------+ + + + | POC GLUCOSE | Routin | 10/28/2018 | | Results for this | | | e | 11:28 AM | | procedure are in the | | | | PDT | | results section. | + +--------+ + + + | POC GLUCOSE | Routin | 10/28/2018 | | Results for this | | | e | 7:02 AM | | procedure are in the | | | | PDT | | results section. | + +--------+ + + + | CBC NO DIFFERENTIAL | Routin | 10/28/2018 | | Results for this | | | e | 4:17 AM | | procedure are in the | | | | PDT | | results section. | + +--------+ + + + | TROPONIN I | Routin | 10/28/2018 | | Results for this | | | e | 4:16 AM | | procedure are in the | | | | PDT | | results section. | + +--------+ + + + | MAGNESIUM | Routin | 10/28/2018 | | Results for this | | | e | 4:16 AM | | procedure are in the | | | | PDT | | results section. | + +--------+ + + + | VANCOMYCIN LEVEL | Routin | 10/28/2018 | | Results for this | | | e | 4:16 AM | | procedure are in the | | | | PDT | | results section. | + +--------+ + + + | BASIC METABOLIC | Routin | 10/28/2018 | | Results for this | | PANEL | e | 4:16 AM | | procedure are in the | | | | PDT | | results section. | + +--------+ + + + | POC GLUCOSE | Routin | 10/27/2018 | | Results for this | | | e | 8:30 PM | | procedure are in the | | | | PDT | | results section. | + +--------+ + + + | POC GLUCOSE | Routin | 10/27/2018 | | Results for this | | | e | 4:43 PM | | procedure are in the | | | | PDT | | results section. | + +--------+ + + + | TROPONIN I | Routin | 10/27/2018 | | Results for this | | | e | 4:05 PM | | procedure are in the | | | | PDT | | results section. | + +--------+ + + + | STREPTOCOCCUS | Routin | 10/27/2018 | | Results for this | | PNEUMONIAE AG, URINE | e | 3:36 PM | | procedure are in the | | | | PDT | | results section. | + +--------+ + + + | LEGIONELLA AG, EIA, | Routin | 10/27/2018 | | Results for this | | QUAL, URINE | e | 3:36 PM | | procedure are in the | | | | PDT | | results section. | + +--------+ + + + | XR CHEST AP PORTABLE | STAT | 10/27/2018 | Clinical sepsis | Results for this | | | | 1:50 PM | (HCC) | procedure are in the | | | | PDT | | results section. | + +--------+ + + + | RESPIRATORY VIRUS | Routin | 10/27/2018 | | Results for this | | ANTIGENS PROFILE | e | 12:40 PM | | procedure are in the | | | | PDT | | results section. | + +--------+ + + + | POC GLUCOSE | Routin | 10/27/2018 | | Results for this | | | e | 11:39 AM | | procedure are in the | | | | PDT | | results section. | + +--------+ + + + | POC GLUCOSE | Routin | 10/27/2018 | | Results for this | | | e | 7:49 AM | | procedure are in the | | | | PDT | | results section. | + +--------+ + + + | CBC WITH | Routin | 10/27/2018 | | Results for this | | DIFFERENTIAL | e | 3:39 AM | | procedure are in the | | | | PDT | | results section. | + +--------+ + + + | MAGNESIUM | Routin | 10/27/2018 | | Results for this | | | e | 3:39 AM | | procedure are in the | | | | PDT | | results section. | + +--------+ + + + | BASIC METABOLIC | Routin | 10/27/2018 | | Results for this | | PANEL | e | 3:39 AM | | procedure are in the | | | | PDT | | results section. | + +--------+ + + + | TROPONIN I | Routin | 10/27/2018 | | Results for this | | | e | 1:18 AM | | procedure are in the | | | | PDT | | results section. | + +--------+ + + + | POC GLUCOSE | Routin | 10/26/2018 | | Results for this | | | e | 9:16 PM | | procedure are in the | | | | PDT | | results section. | + +--------+ + + + | LACTIC ACID | Routin | 10/26/2018 | | Results for this | | | e | 7:32 PM | | procedure are in the | | | | PDT | | results section. | + +--------+ + + + | TROPONIN I | Routin | 10/26/2018 | | Results for this | | | e | 7:01 PM | | procedure are in the | | | | PDT | | results section. | + +--------+ + + + | POC GLUCOSE | Routin | 10/26/2018 | | Results for this | | | e | 6:16 PM | | procedure are in the | | | | PDT | | results section. | + +--------+ + + + | CULTURE, MRSA | Routin | 10/26/2018 | | Results for this | | | e | 5:00 PM | | procedure are in the | | | | PDT | | results section. | + +--------+ + + + | CT CHEST WO CONTRAST | LILY | 10/26/2018 | | Results for this | | | | 2:58 PM | | procedure are in the | | | | PDT | | results section. | + +--------+ + + + | URINALYSIS WITH | STAT | 10/26/2018 | | Results for this | | MICROSCOPIC WITH | | 2:04 PM | | procedure are in the | | CULTURE IF INDICATED | | PDT | | results section. | + +--------+ + + + | CULTURE, URINE | STAT | 10/26/2018 | | Results for this | | | | 2:04 PM | | procedure are in the | | | | PDT | | results section. | + +--------+ + + + | XR CHEST AP PORTABLE | STAT | 10/26/2018 | | Results for this | | | | 1:56 PM | | procedure are in the | | | | PDT | | results section. | + +--------+ + + + | RT PEAK FLOW | Routin | 10/26/2018 | | | | | e | 1:22 PM | | | | | | PDT | | | + +--------+ + + + | CULTURE, BLOOD | STAT | 10/26/2018 | | Results for this | | | | 1:18 PM | | procedure are in the | | | | PDT | | results section. | + +--------+ + + + | CULTURE, | STAT | 10/26/2018 | | Results for this | | RESPIRATORY, LOWER, | | 1:10 PM | | procedure are in the | | SMEAR | | PDT | | results section. | + +--------+ + + + | INFLUENZA A AND B | STAT | 10/26/2018 | | Results for this | | RNA, NAAT | | 1:09 PM | | procedure are in the | | | | PDT | | results section. | + +--------+ + + + | CBC W/AUTO | STAT | 10/26/2018 | | Results for this | | DIFFERENTIAL | | 1:09 PM | | procedure are in the | | | | PDT | | results section. | + +--------+ + + + | PROCALCITONIN, SERUM | Routin | 10/26/2018 | | Results for this | | | e | 1:09 PM | | procedure are in the | | | | PDT | | results section. | + +--------+ + + + | TROPONIN I | STAT | 10/26/2018 | | Results for this | | | | 1:09 PM | | procedure are in the | | | | PDT | | results section. | + +--------+ + + + | CULTURE, BLOOD | STAT | 10/26/2018 | | Results for this | | | | 1:09 PM | | procedure are in the | | | | PDT | | results section. | + +--------+ + + + | PROTIME INR | STAT | 10/26/2018 | | Results for this | | | | 1:09 PM | | procedure are in the | | | | PDT | | results section. | + +--------+ + + + | B TYPE NATRIURETIC | STAT | 10/26/2018 | | Results for this | | PEPTIDE | | 1:09 PM | | procedure are in the | | | | PDT | | results section. | + +--------+ + + + | LACTIC ACID | STAT | 10/26/2018 | | Results for this | | | | 1:09 PM | | procedure are in the | | | | PDT | | results section. | + +--------+ + + + | COMPREHENSIVE | STAT | 10/26/2018 | | Results for this | | METABOLIC PANEL | | 1:09 PM | | procedure are in the | | | | PDT | | results section. | + +--------+ + + + | ECG 12 LEAD | STAT | 10/26/2018 | | Results for this | | | | 12:53 PM | | procedure are in the | | | | PDT | | results section. | + +--------+ + + + documented in this encounter Results Extra Lavender Top Tube (11/01/2018 7:46 AM PDT) + +-------+ + + + | Component | Value | Ref Range | Performed | Pathologist | | | | | At | Signature | + +-------+ + + + | Extra | Done | | [facility] | | | Lavender | | | [facility] | | | Top Tube | | | MEDICAL | | | [...] | + + + + + | [facility] | [address] | [place] | [phone] | | [facility] | | [address] | | | - LABORATORY | | | | + + + + + POC Glucose (11/01/2018 6:45 AM PDT) + +---------+ + + + | Component | Value | Ref Range | Performed | Pathologist | | | | | At | Signature | + +---------+ + + + | Glucose, | 138 (H) | 70 - 109 mg/dL | [facility] | | | POC | | | [facility] | | | | | | [facility] | | | | | | CENTER - | | | | | | LABORATORY | | + +---------+ + + + + + | Specimen | + + | Blood | + + + + + + + | Performing | Address | City/State/Zipcode | Phone Number | | Organization | | | | + + + + + | [facility] | [address] | [place], [place] | [phone] | | [facility] | | [address] | | | - LABORATORY | | | | + + + + + Phosphorus (11/01/2018 6:21 AM PDT) + +---------+ + + + | Component | Value | Ref Range | Performed | Pathologist | | | | | At | Signature | + +---------+ + + + | Phosphorus | 6.6 (H) | 2.4 - 5.1 mg/dL | [facility] | | | | | [facility] | | | | | | [facility] | | | | | | CENTER - | | | | | | LABORATORY | | + +---------+ + + + + + | Specimen | + + | Blood | + + + + + + + | Performing | Address | City/State/[facility] | Phone Number | | Organization | | | | + + + + + | [facility] | [address] | [place] | [phone] | | [facility] | | [address] | | | - LABORATORY | | | | + + + + + Magnesium (11/01/2018 6:21 AM PDT) + +-------+ + + + | Component | Value | Ref Range | Performed | Pathologist | | | | | At | Signature | + +-------+ + + + | Magnesium | 1.8 | 1.6 - 2.6 mg/dL | [facility] | | | | | | [facility] [...] + + + + + | [facility] | [address] | [place] | [phone] | | [facility] | | [address] | | | - LABORATORY | | | | + + + + + Basic Metabolic Panel (11/01/2018 6:21 AM PDT) + + + + + + | Component | Value | Ref Range | Performed | Pathologist | | | | | At | Signature | + + + + + + | Na | 131 (L) | 136 - 145 | [facility] | | | | | mmol/L | [facility] | | | | | | [facility] | | | | | | CENTER - | | | | | | LABORATORY | | + + + + + + | K | 4.5 | 3.4 - 5.1 | [facility] | | | | | mmol/L | [facility] | | | | | | MEDICAL | | | | | | CENTER - | | | | | | LABORATORY | | + + + + + + | Cl | 101 | 98 - 107 mmol/L | [facility] | | | | | | [facility] | | | | | | [facility]ICAL | | | | | | CENTER - | | | | | | LABORATORY | | + + + + + + | CO2 | 21 | 20 - 31 mmol/L | [facility] | | | | | | [facility] | | | | | | MEDICAL | | | | | | CENTER - | | | | | | LABORATORY | | + + + + + + | Anion Gap | 9 | 3 - 16 mmol/L | [facility] | | | | | | [facility] | | | | | | MEDICAL | | | | | | CENTER - | | | | | | LABORATORY | | + + + + + + | Glucose | 142 (H) | 60 - 106 mg/dL | [facility] | | | | | | [facility] | | | | | | MEDICAL | | | | | | CENTER - | | | | | | LABORATORY | | + + + + + + | BUN | 56 (H) | 9 - 23 mg/dL | [facility] | | | | | | [facility] | | | | | | [facility] | | | | | | CENTER - | | | | | | LABORATORY | | + + + + + + | Creatinine | 5.44 (H) | 0.70 - 1.30 | [facility] | | | | | mg/dL | [facility] | | | | | | MEDICAL | | | | | | CENTER - | | | | | | LABORATORY | | + + + + + + | eGFR if not | 10 (L) | >=60 | [facility] | | | | | mL/min/1.73m2 | [facility] | | | [facility] | | | MEDICAL | | | | | | CENTER - | | | | | | LABORATORY | | + + + + + + | Calcium | 9.3 | 8.7 - 10.4 | [facility] | | | | | mg/dL | [facility] | | | | | | MEDICAL | | | | | | CENTER - | | | | | | LABORATORY | | + + + + + + | BUN/Creatin | 10.3 | | [facility] | | | ine Ratio | | | [facility] | | [...] + + | [facility] | [address] | [place] | [phone] | | [facility] | | [address] | | | - LABORATORY | | | | + + + + + CBC with Differential (11/01/2018 4:49 AM PDT) + + + + + + | Component | Value | Ref Range | Performed | Pathologist | | | | | At | Signature | + + + + + + | WBC | 5.1 | 4.0 - 11.0 K/uL | [facility] | | | | | | [facility] | | | | | | MEDICAL | | | | | | CENTER - | | | | | | LABORATORY | | + + + + + + | RBC | 3.96 (L) | 4.30 - 5.70 | [facility] | | | | | M/uL | [facility] | | | | | | MEDICAL | | | | | | CENTER - | | | | | | LABORATORY | | + + + + + + | Hemoglobin | 12.4 (L) | 13.5 - 18.0 | [facility] | | | | | g/dL | [facility] | | | | | | MEDICAL | | | | | | CENTER - | | | | | | LABORATORY | | + + + + + + | Hematocrit | 38.1 (L) | 40.0 - 51.0 % | [facility] | | | | | | [facility] | | | | | | MEDICAL | | | | | | CENTER - | | | | | | LABORATORY | | + + + + + + | MCV | 96.2 | 83.0 - 101.0 fL | [facility] | | | | | | [facility] | | | | | | MEDICAL | | | | | | CENTER - | | | | | | LABORATORY | | + + + + + + | MCH | 31.3 | 28.0 - 35.0 pg | [facility] | | | | | | [facility] | | | | | | MEDICAL | | | | | | CENTER - | | | | | | LABORATORY | | + + + + + + | MCHC | 32.5 | 32.0 - 36.0 | [facility] | | | | | g/dL | [facility] | | | | | | MEDICAL | | | | | | CENTER - | | | | | | LABORATORY | | + + + + + + | RDW-CV | 14.9 | <15.0 % | [facility] | | | | | | [facility] | | | | | | MEDICAL | | | | | | CENTER - | | | | | | LABORATORY | | + + + + + + | RDW-SD | 53.0 (H) | 35.1 - 46.3 fL | [facility] | | | | | | [facility] | | | | | | MEDICAL | | | | | | CENTER - | | | | | | LABORATORY | | + + + + + + | Platelet | 119 (L) | 140 - 440 K/uL | [facility] | | | Count | | | [facility] | | | | | | MEDICAL | | | | | | CENTER - | | | | | | LABORATORY | | + + + + + + | MPV | Comment: Unable to | 6.5 - 12.4 fL | [facility] | | | | calculate due to | | [facility] | | | | abnormal platelet | | MEDICAL | | | | distribution | | CENTER - | | | | | | LABORATORY | | + + + + + + | Immature | 4.2Comment: Low PLT + | 0.9 - 11.2 % | [facility] | | | Platelet | Low IPF are consistent | | [facility] | | | Fraction | with a production | | MEDICAL | | | | disorder. Low PLT + High | | CENTER - | | | | IPF are consistent with | | LABORATORY | | | | destruction mechanism. | | | | + + + + + + | % | 67.1 | 45.0 - 82.0 % | [facility] | | | Neutrophils | | | [facility] | | | | | | MEDICAL | | | | | | CENTER - | | | | | | LABORATORY | | + + + + + + | % | 20.1 | 20.0 - 45.0 % | [facility] | | | Lymphocytes | | | [facility] | | | | | | MEDICAL | | | | | | CENTER - | | | | | | LABORATORY | | + + + + + + | % Monocytes | 10.4 | 4.0 - 12.0 % | [facility] | | | | | | [facility] | | | | | | MEDICAL | | | | | | CENTER - | | | | | | LABORATORY | | + + + + + + | % | 1.4 | 0.0 - 5.0 % | [facility] | | | Eosinophils | | | [facility] | | | | | | MEDICAL | | | | | | CENTER - | | | | | | LABORATORY | | + + + + + + | % Basophils | 0.4 | 0.0 - 1.0 % | [facility] | | | | | | [facility] | | | | | | MEDICAL | | | | | | CENTER - | | | | | | LABORATORY | | + + + + + + | % Immature | 0.6 (H)Comment: | 0.0 - 0.4 % | [facility] | | | Granulocyte | Preliminary studIes have | | [facility] | | | s | indicated the IG% | | MEDICAL | | | | and/or IG# show promise | | CENTER - | | | | as an early screen for | | LABORATORY | | | | infection. | | | | + + + + + + | Absolute | 3.41 | 1.80 - 8.50 | [facility] | | | Neutrophils | | K/uL | [facility] | | | | | | MEDICAL | | | | | | CENTER - | | | | | | LABORATORY | | + + + + + + | Absolute | 1.02 | 0.60 - 3.20 | [facility] | | | Lymphocytes | | K/uL | [facility] | | | | | | MEDICAL | | | | | | CENTER - | | | | | | LABORATORY | | + + + + + + | Absolute | 0.53 | 0.00 - 1.00 | [facility] | | | Monocytes | | K/uL | [facility] | | | | | | MEDICAL | | | | | | CENTER - | | | | | | LABORATORY | | + + + + + + | Absolute | 0.07 | 0.00 - 0.40 | [facility] | | | Eosinophils | | K/uL | [facility] | | | | | | MEDICAL | | | | | | CENTER - | | | | | | LABORATORY | | + + + + + + | Absolute | 0.02 | 0.00 - 0.10 | [facility] | | | Basophils | | K/uL | [facility] | | | | | | MEDICAL | | | | | | CENTER - | | | | | | LABORATORY | | + + + + + + | Absolute | 0.03 | 0.00 - 0.03 | [facility] | | | Immature | | K/uL | [facility] | | | Granulocyte | | | MEDICAL | | | s | | | CENTER - | | | | | | LABORATORY | | + + + + + + | % nRBC | 0 | 0 - 2 per 100 | [facility] | | | | | WBCs | [facility] | | | | | | MEDICAL | | | | | | CENTER - | | | | | | LABORATORY | | + + + + + + | Absolute | 0.00 | 0.00 - 0.01 | [facility] | | | nRBC | | K/uL | [facility] | | | | [...] [address] | [place] | [phone] | | [facility] | | [address] | | | - LABORATORY | | | | + + + + + POC Glucose (10/31/2018 9:48 PM PDT) + +---------+ + + + | Component | Value | Ref Range | Performed | Pathologist | | | | | At | Signature | + +---------+ + + + | Glucose, | 199 (H) | 70 - 109 mg/dL | [facility] | | | POC | | | [facility] | | | | | | [facility] | | | | | | CENTER - | | | | | | LABORATORY | | + +---------+ + + + + + | Specimen | + + | Blood | + + + + + + + | Performing | Address | City/State/Zipcode | Phone Number | | Organization | | | | + + + + + | [facility] | [address] | [place] | [phone] | | [facility] | | [address] | | | - LABORATORY | | | | + + + + + POC Glucose (10/31/2018 4:54 PM PDT) + +---------+ + + + | Component | Value | Ref Range | Performed | Pathologist | | | | | At | Signature | + +---------+ + + + | Glucose, | 188 (H) | 70 - 109 mg/dL | [facility] | | | POC | | | [facility] | | | | | | MEDICAL | | | | | | CENTER - | | | | | | LABORATORY | | + +---------+ + + + + + | Specimen | + + | Blood | + + + + + + + | Performing | Address | City/State/Zipcode | Phone Number | | Organization | | | | + + + + + | [facility] | [address] | [place] | [phone] | | [facility] | | [address] | | | - LABORATORY | | | | + + + + + POC Glucose (10/31/2018 11:52 AM PDT) + +---------+ + + + | Component | Value | Ref Range | Performed | Pathologist | | | | | At | Signature | + +---------+ + + + | Glucose, | 121 (H) | 70 - 109 mg/dL | [facility] | | | POC | | | [facility] | | | | | | MEDICAL | | | | | | CENTER - | | | | | | LABORATORY | | + +---------+ + + + + + | Specimen | + + | Blood | + + + + + + + | Performing | Address | City/State/Zipcode | Phone Number | | Organization | | | | + + + + + | [facility] | [address] | [place] | [phone] | | [facility] | | [address] | | | - LABORATORY | | | | + + + + + ECHO Complete w Contrast (10/31/2018 9:14 AM PDT) + +--------+ + + + | Component | Value | Ref Range | Performed | Pathologist | | | | | At | Signature | + +--------+ + + + | BASELINE | 140/63 | mmHg | [facility] | | | BLOOD | | | | | | PRESSURE | | | | | + +--------+ + + + | Patient | 241 | | [facility] | | | Weight | | | | | | (lbs) | | | | | + +--------+ + + + | Patient | 5'7" | | [facility] | | | Height | | | | | + +--------+ + + + | LVIDd | 5.87 | cm | [facility] | | + +--------+ + + + | FS | 25 | % | [facility] | | + +--------+ + + + | AV mean | 4.68 | mmHg | [facility] | | | gradient | | | | | + +--------+ + + + | MV mean | 3.02 | mmHg | [facility] | | | gradient | | | | | + +--------+ + + + | MV Area by | 4.41 | cm2 | [facility] | | | P 1/2 | | | | | | method | | | | | + +--------+ + + + | IVRT | 96.89 | msec | [facility] | | + +--------+ + + + | LVOT peak | 93.68 | cm/s | [facility] | | | keyur | | | | | + +--------+ + + + | LVOT peak | 16.41 | cm | [facility] | | | VTI | | | | | + +--------+ + + + | AV peak keyur | 147.16 | cm/s | [facility] | | + +--------+ + + + | AV VTI | 26.46 | cm | [facility] | | + +--------+ + + + | AV peak | 8.66 | mmHg | [facility] | | | gradient | | | | | + +--------+ + + + | MV peak | 9.91 | mmHg | [facility] | | | gradient | | | | | + +--------+ + + + | MV Pressure | 49.89 | msec | [facility] | | | 1/2 time | | | | | + +--------+ + + + | AV LVOT | 3.51 | mmHg | [facility] | | | Peak | | | | | | Gradient | | | | | + +--------+ + + + | AV LVOT | 1.72 | mmHg | [facility] | | | Mean | | | | | | Gradient | | | | | + +--------+ + + + | TR Peak | 45 | mmHg | [facility] | | | Gradient | | | | | + +--------+ + + + | TR Velocity | 334.32 | cm | [facility] | | + +--------+ + + + | LV | 9.01 | cm | [facility] | | | Diastolic | | | | | | Length 4C | | | | | + +--------+ + + + | LV | 35 | % | [facility] | | | Garcia's | | | | | | Biplane EF | | | | | + +--------+ + + + | LV ED | 84.33 | ml | [facility] | | | Volume | | | | | | (Garcia's) | | | | | + +--------+ + + + | LV ED | 39 | ml/m2 | [facility] | | | Volume | | | | | | Index | | | | | + +--------+ + + + | LV ES | 34.51 | ml | [facility] | | | Volume | | | | | + +--------+ + + + | LVOT Mean | 60.81 | cm/s | [facility] | | | Velocity | | | | | + +--------+ + + + | MV | 744.41 | cm/s2 | [facility] | | | Deceleratio | | | | | | n [place] | | | | | + +--------+ + + + | MV | 172.04 | msec | [facility] | | | Deceleratio | | | | | | n Time | | | | | + +--------+ + + + | MV E/A | 4.79 | | [facility] | | | Ratio | | | | | + +--------+ + + + | MV Mean | 75.94 | cm/s | [facility] | | | Velocity | | | | | + +--------+ + + + | MV Peak | 26.71 | cm/s | [facility] | | | A-Wave | | | | | + +--------+ + + + | MV Peak | 128.07 | cm/s | [facility] | | | E-Wave | | | | | + +--------+ + + + | AV Mean | 101.96 | cm/s | [facility] | | | Velocity | | | | | + +--------+ + + + | LA/Aorta | 1.28 | | [facility] | | | Ratio | | | | | + +--------+ + + + | LA Major | 0.2646 | cm | [facility] | | + +--------+ + + + | LV ES | 16 | ml/m2 | [facility] | | | Volume | | | | | | Index | | | | | + +--------+ + + + | Aortic Root | 4.06 | cm | [facility] | | | Diameter | | | | | + +--------+ + + + | IVS | 1.18 | cm | [facility] | | | Diastolic | | | | | | Thickness | | | | | | MM | | | | | + +--------+ + + + | LVPW | 1.2 | cm | [facility] | | | Diastolic | | | | | | Thickness | | | | | | MM | | | | | + +--------+ + + + | IVS | 1.29 | cm | [facility] | | | Systolic | | | | | | Thickness | | | | | | MM | | | | | + +--------+ + + + | LV Systolic | 4.42 | cm | [facility] | | | Diameter | | | | | | MM | | | | | + +--------+ + + + | LVPW | 1.68 | cm | [facility] | | | Systolic | | | | | | Thickness | | | | | | MM | | | | | + +--------+ + + + | AV Cusp | 2.34 | cm | [facility] | | | Seperation | | | | | | MM | | | | | + +--------+ + + + | LA Systolic | 5.2 | cm | [facility] | | | Diameter | | | | | | MM | | | | | + +--------+ + + + | LVEF-TTE | 30 | % | [facility] | | | TRANSTHORAC | | | | | | IC ECHO | | | | | + +--------+ + + + + + | Specimen | + + | | + + + + + | Narrative | Performed At | + + + | Summary: 1. | [facility] | | Technically limited study.2. Global hypokinesis with some apparent | | | dyskinesis in the anterior septal region and the inferior basilar | | | segment.3. Compared to prior study inferior basilar segment may be | | | less akinetic.4. Biatrial enlargement.5. Calcification aortic | | | valve without stenosis.6. Moderately enlarged right ventricle.7. | | | Elevated right ventricular and pulmonary pressures.8. Compared to | | | prior studies, perhaps mild improvement of inferior segment wall | | | motion abnormality. | | |7. Elevated right ventricular and pulmonary pressures. | | |8. Compared to prior studies, perhaps mild improvement of inferior | | |segment wall motion abnormality. | | + + + + +---------+ + + | Performing | Address | City/State/Zipcode | Phone Number | | Organization | | | | + +---------+ + + | [facility] | | | | + +---------+ + + POC Glucose (10/31/2018 6:03 AM PDT) + +-------+ + + + | Component | Value | Ref Range | Performed | Pathologist | | | | | At | Signature | + +-------+ + + + | Glucose, | 105 | 70 - 109 mg/dL | [facility] | | | P[facility] [...] [facility] | [address] | [place] | [phone] | | [facility] | | [address] | | | - LABORATORY | | | | + + + + + Phosphorus (10/31/2018 4:29 AM PDT) + +-------+ + + + | Component | Value | Ref Range | Performed | Pathologist | | | | | At | Signature | + +-------+ + + + | Phosphorus | 5.1 | 2.4 - 5.1 mg/dL | [facility] | | | | | | [facility] | | | | | | [...] + | [facility] | [address] | [place] | [phone] | | [facility] | | [id number] | | | - LABORATORY | | | | + + + + + Magnesium (10/31/2018 4:29 AM PDT) + +-------+ + + + | Component | Value | Ref Range | Performed | Pathologist | | | | | At | Signature | + +-------+ + + + | Magnesium | 1.7 | 1.6 - 2.6 mg/dL | [facility] | | | | [...] ST. | [address] | [place] | [phone] | | [facility] | | [address] | | | - LABORATORY | | | | + + + + + CBC with Differential (10/31/2018 4:29 AM PDT) + + + + + + | Component | Value | Ref Range | Performed | Pathologist | | | | | At | Signature | + + + + + + | WBC | 5.8 | 4.0 - 11.0 K/uL | [facility] | | | | | | [facility] | [facility] | | | | | [facility] - | | | | | | LABORATORY | | + + + + + + | RBC | 3.72 (L) | 4.30 - 5.70 | [facility] | | | | | M/uL | [facility] | | | | | | [facility] | | | | | | C[facility] - | | | | | | LABORATORY | | + + + + + + | Hemoglobin | 11.9 (L) | 13.5 - 18.0 | [facility] | | | | | g/dL | [facility] | | | | | | [facility] | | | | | | C[facility] - | | | | | | LABORATORY | | + + + + + + | Hematocrit | 36.5 (L) | 40.0 - 51.0 % | [facility] | | | | | | [facility] | | | | | | [facility] - | | | | | | LABORATORY | | + + + + + + | MCV | 98.1 | 83.0 - 101.0 fL | [facility] | [facility] | [facility] | | | | | | [facility] | | | | | | [facility] - | | | | | | LABORATORY | | + + + + + + | MCH | 32.0 | 28.0 - 35.0 pg | [facility] | [facility] | [facility] | | | | | | [facility] | | | | | | [facility] - | | | | | | LABORATORY | | + + + + + + | MCHC | 32.6 | 32.0 - 36.0 | [facility] | | | | | g/dL | [facility] | | | | | | [facility] | | | | | | CENTER - | | | | | | LABORATORY | | + + + + + + | RDW-CV | 15.2 (H) | <15.0 % | [facility] | [facility] | | | [facility] | | | | | | [facility] | | | | | | [facility] - | | | | | | LABORATORY | | + + + + + + | RDW-SD | 54.5 (H) | 35.1 - 46.3 fL | [facility] | [facility] | | | [facility] | | | | | | [facility] | | | | | | [facility] - | | | | | | LABORATORY | | + + + + + + | Platelet | 122 (L) | 140 - 440 K/uL | [facility] | | | Count | | | [facility] | | | | | | [facility] | | | | | | CENTER - | | | | | | LABORATORY | | + + + + + + | MPV | 11.4 | 6.5 - 12.4 fL | [facility] | | | | | | [facility] | | | | | | [facility] | | | | | | [facility] - | | | | | | LABORATORY | | + + + + + + | Immature | 3.5Comment: Low PLT + | 0.9 - 11.2 % | [facility] | | | Platelet | Low IPF are consistent | | [facility] | | | Fraction | with a production | | MEDICAL | | | | disorder. Low PLT + High | | CENTER - | | | | IPF are consistent with | | LABORATORY | | | | destruction mechanism. | | | | + + + + + + | % | 70.4 | 45.0 - 82.0 % | [facility] | | | Neutrophils | | | [facility] | | | | | | [facility] | | | | | | CENTER - | | | | | | LABORATORY | | + + + + + + | % | 16.4 (L) | 20.0 - 45.0 % | [facility] | | | Lymphocytes | | | [facility] | | | | | | [facility] | | | | | | CENTER - | | | | | | LABORATORY | | + + + + + + | % Monocytes | 10.5 | 4.0 - 12.0 % | [facility] | | | | | | [facility] | | | | | | [facility] | | | | | | [facility]ENTER - | | | | | | LABORATORY | | + + + + + + | % | 1.7 | 0.0 - 5.0 % | [facility] | | | Eosinophils | | | [facility] | | | | | | [facility] | | | | | | CENTER - | | | | | | LABORATORY | | + + + + + + | % Basophils | 0.7 | 0.0 - 1.0 % | [facility] | | | | | | [facility] | | | | | | [facility] | | | | | | CENTER - | | | | | | LABORATORY | | + + + + + + | % Immature | 0.3 | 0.0 - 0.4 % | [facility] | | | Granulocyte | | | [facility] | | | s | | | MEDICAL | | | | | | CENTER - | | | | | | LABORATORY | | + + + + + + | Absolute | 4.08 | 1.80 - 8.50 | [facility] | | | Neutrophils | | K/uL | [facility] | | | | | | [facility] | | | | | | CENTER - | | | | | | LABORATORY | | + + + + + + | Absolute | 0.95 | 0.60 - 3.20 | [facility] | | | Lymphocytes | | K/uL | [facility] | | | | | | [facility] | | | | | | CENTER - | | | | | | LABORATORY | | + + + + + + | Absolute | 0.61 | 0.00 - 1.00 | [facility] | | | Monocytes | | K/uL | [facility] | | | | | | [facility] | | | | | | CENTER - | | | | | | LABORATORY | | + + + + + + | Absolute | 0.10 | 0.00 - 0.40 | [facility] | | | Eosinophils | | K/uL | [facility] | | | | | | [facility] | | | | | | CENTER - | | | | | | LABORATORY | | + + + + + + | Absolute | 0.04 | 0.00 - 0.10 | [facility] | | | Basophils | | K/uL | [facility] | | | | | | [facility] | | | | | | CENTER - | | | | | | LABORATORY | | + + + + + + | Absolute | 0.02 | 0.00 - 0.03 | [facility] | | | Immature | | K/uL | [facility] | | | Granulocyte | | | MEDICAL | | | s | | | CENTER - | | | | | | LABORATORY | | + + + + + + | % nRBC | 0 | 0 - 2 per 100 | [facility] | | | | | WBCs | [facility] | | | | | | [facility] | | | | | | CENTER - | | | | | | LABORATORY | | + + + + + + | Absolute | 0.00 | 0.00 - 0.01 | [facility] | | | nRBC | | K/uL | [facility] | | | | | | [...] [address] | [place] | [phone] | | [facility] | | [address] | | | - LABORATORY | | | | + + + + + Basic Metabolic Panel (10/31/2018 4:29 AM PDT) + + + + + + | Component | Value | Ref Range | Performed | Pathologist | | | | | At | Signature | + + + + + + | Na | 133 (L) | 136 - 145 | [facility] | | | | | mmol/L | [facility] | | | | | | [facility]ICAL | | | | | | CENTER - | | | | | | LABORATORY | | + + + + + + | K | 4.4 | 3.4 - 5.1 | [facility] | | | | | mmol/L | [facility] | | | | | | [facility] | | | | | | CENTER - | | | | | | LABORATORY | | + + + + + + | Cl | 99 | 98 - 107 mmol/L | [facility] | | | | | | [facility] | | | | | | [facility] | | | | | | CENTER - | | | | | | LABORATORY | | + + + + + + | CO2 | 23 | 20 - 31 mmol/L | [facility] | | | | | | [facility] | | | | | | [facility] | | | | | | CENTER - | | | | | | LABORATORY | | + + + + + + | Anion Gap | 11 | 3 - 16 mmol/L | [facility] | | | | | | [facility] | | | | | | [facility] | | | | | | CENTER - | | | | | | LABORATORY | | + + + + + + | Glucose | 119 (H) | 60 - 106 mg/dL | [facility] | | | | | [facility] | | | | | | [facility] | | | | | | CENTER - | | | | | | LABORATORY | | + + + + + + | BUN | 49 (H) | 9 - 23 mg/dL | [facility] | | | | | | [facility] | | | | | | [facility] | | | | | | CENTER - | | | | | | LABORATORY | | + + + + + + | Creatinine | 4.30 (H) | 0.70 - 1.30 | [facility] | | | | | mg/dL | [facility] | | [facility] | | | [facility] | | | | | | CENTER - | | | | | | LABORATORY | | + + + + + + | eGFR if not | 14 (L) | >=60 | [facility] | | | | | mL/min/1.73m2 | [facility] | | | [facility] | | | MEDICAL | | | | | | CENTER - | | | | | | LABORATORY | | + + + + + + | Calcium | 9.1 | 8.7 - 10.4 | [facility] | | | | | mg/dL | [facility] | | | | | | [facility] | | | | | | CENTER - | | | | | | LABORATORY | | + + + + + + | BUN/Creatin | 11.4 | | [facility] | | | ine Ratio | | | [facility] | | | | | | MEDICAL [...] [address] | [place] | [phone] | | [facility] | | [address] | | | - LABORATORY | | | | + + + + + POC Glucose (10/30/2018 10:55 PM PDT) + +---------+ + + + | Component | Value | Ref Range | Performed | Pathologist | | | | | At | Signature | + +---------+ + + + | Glucose, | 165 (H) | 70 - 109 mg/dL | [facility] | | | POC | | | [facility] | | | | | | [facility]ICAL | | | | | | CENTER - | | | | | | LABORATORY | | + +---------+ + + + + + | Specimen | + + | Blood | + + + + + + + | Performing | Address | City/State/Zipcode | Phone Number | | Organization | | | | + + + + + | [facility] | [address] | [place] | [phone] | | [facility] | | [address] | | | - LABORATORY | | | | + + + + + POC Glucose (10/30/2018 5:22 PM PDT) + +---------+ + + + | Component | Value | Ref Range | Performed | Pathologist | | | | | At | Signature | + +---------+ + + + | Glucose, | 167 (H) | 70 - 109 mg/dL | [facility] | | | POC | | | [facility] | | | | | | MEDICAL | | | | | | CENTER - | | | | | | LABORATORY | | + +---------+ + + + + + | Specimen | + + | Blood | + + + + + + + | Performing | Address | City/State/Zipcode | Phone Number | | Organization | | | | + + + + + | [facility] | [address] | [place], [place] | [phone] | | [facility] | | [address] | | | - LABORATORY | | | | + + + + + POC Glucose (10/30/2018 11:33 AM PDT) + +---------+ + + + | Component | Value | Ref Range | Performed | Pathologist | | | | | At | Signature | + +---------+ + + + | Glucose, | 122 (H) | 70 - 109 mg/dL | [facility] | | | POC | | | [facility] | | | | | | MEDICAL | | | | | | CENTER - | | | | | | LABORATORY | | + +---------+ + + + + + | Specimen | + + | Blood | + + + + + + + | Performing | Address | City/State/Zipcode | Phone Number | | Organization | | | | + + + + + | [facility] | [address] | [place], [place] | [phone] | | [facility] | | [address] | | | - LABORATORY | | | | + + + + + NM Nuclear Stress Test (Vasodilator) (10/30/2018 11:20 AM PDT) + +--------+ + + + | Component | Value | Ref Range | Performed | Pathologist | | | | | At | Signature | + +--------+ + + + | BASELINE | 70 | bpm | [facility] | | | HEART RATE | | | | | + +--------+ + + + | BASELINE | 119/67 | mmHg | [facility] | | | BLOOD | | | | | | PRESSURE | | | | | + +--------+ + + + | PEAK HEART | 75 | | [facility] | | | RATE | | | | | + +--------+ + + + | PEAK BLOOD | 135/57 | mmHG | [facility] | | | PRESSURE | | | | | + +--------+ + + + | Target HR | 126 | | [facility] | | + +--------+ + + + | Percent HR | 51 | | [facility] | | + +--------+ + + + | LVEF-SPECT | 36 | % | [facility] | | | NUCLEAR | | | | | | STRESS/VIAB | | | | | | ILITY | | | | | + +--------+ + + + | ST | 0.0 | mm | [facility] | | | Elevation | | | | | | (mm) | | | | | + +--------+ + + + + + | Specimen | + + | | + + + + + | Narrative | Performed At | + + + | 1. | [facility] | | Persantine EKG is negative.2. Abnormal Persantine sestamibi | | | myocardial imaging study with a medium-sized, reversible defect of the | | | mid anterior, distal anterior, apex, distal anteroseptal and inferior | | | apical region. Findings suggest a medium-sized myocardial ischemia | | | of a mid left anterior descending artery territories. Left | | | ventricular cavity is slightly dilated. There is severe hypokinesis | | | of the distal anterior wall. Overall, left ventricular systolic | | | function is moderately decreased. LVEF by gated SPECT is 36%. | | + + + + +---------+ + + | Performing | Address | City/State/Zipcode | Phone Number | | Organization | | | | + +---------+ + + | [facility] | | | | + +---------+ + + POC Glucose (10/30/2018 8:00 AM PDT) + +-------+ + + + | Component | Value | Ref Range | Performed | Pathologist | | | | | At | Signature | + +-------+ + + + | Glucose, | 108 | 70 - 109 mg/dL | [facility] | | | POC [...] + | [facility] | [address] | [place] | [phone] | | [facility] | | [address] | | | - LABORATORY | | | | + + + + + Magnesium (10/30/2018 4:12 AM PDT) + +-------+ + + + | Component | Value | Ref Range | Performed | Pathologist | | | | | At | Signature | + +-------+ + + + | Magnesium | 1.9 | 1.6 - 2.6 mg/dL | [facility] | | | | | | [facility] | | | | | | [...] + | [facility] | [address] | [place] | [phone] | | [facility] | | [address] | | | - LABORATORY | | | | + + + + + Basic Metabolic Panel (10/30/2018 4:12 AM PDT) + + + + + + | Component | Value | Ref Range | Performed | Pathologist | | | | | At | Signature | + + + + + + | Na | 132 (L) | 136 - 145 | [facility] | | | | | mmol/L | [facility] | | | | | | MEDICAL | | | | | | CENTER - | | | | | | LABORATORY | | + + + + + + | K | 4.8 | 3.4 - 5.1 | [facility] | | | | | mmol/L | [facility] | | | | | | MEDICAL | | | | | | CENTER - | | | | | | LABORATORY | | + + + + + + | Cl | 100 | 98 - 107 mmol/L | [facility] | | | | | | [facility] | | | | | | MEDICAL | | | | | | CENTER - | | | | | | LABORATORY | | + + + + + + | CO2 | 23 | 20 - 31 mmol/L | [facility] | | | | | | [facility] | | | | | | MEDICAL | | | | | | CENTER - | | | | | | LABORATORY | | + + + + + + | Anion Gap | 9 | 3 - 16 mmol/L | [facility] | | | | | | [facility] | | | | | | [facility] | | | | | | CENTER - | | | | | | LABORATORY | | + + + + + + | Glucose | 166 (H) | 60 - 106 mg/dL | [facility] | | | | | | [facility] | | | | | | MEDICAL | | | | | | CENTER - | | | | | | LABORATORY | | + + + + + + | BUN | 60 (H) | 9 - 23 mg/dL | [facility] | | | | | [facility] | | | | | | [facility]ICAL | | | | | | CENTER - | | | | | | LABORATORY | | + + + + + + | Creatinine | 5.23 (H) | 0.70 - 1.30 | [facility] | | | | | mg/dL | [facility] | | | | | | MEDICAL | | | | | | CENTER - | | | | | | LABORATORY | | + + + + + + | eGFR if not | 11 (L) | >=60 | [facility] | | | | | mL/min/1.73m2 | [facility] | | | [facility] | | | MEDICAL | | | | | | CENTER - | | | | | | LABORATORY | | + + + + + + | Calcium | 8.5 (L) | 8.7 - 10.4 | [facility] | | | | | mg/dL | [facility] | | | | | | MEDICAL | | | | | | CENTER - | | | | | | LABORATORY | | + + + + + + | BUN/Creatin | 11.5 | | [facility] | | | ine Ratio | | | [facility] | | [...] + | [facility] | [address] | [place] | [phone] | | [facility] | | [address] | | | - LABORATORY | | | | + + + + + CBC no Differential (10/30/2018 4:12 AM PDT) + + + + + + | Component | Value | Ref Range | Performed | Pathologist | | | | | At | Signature | + + + + + + | WBC | 6.3 | 4.0 - 11.0 K/uL | [facility] | | | | | | [facility] | | | | | | MEDICAL | | | | | | CENTER - | | | | | | LABORATORY | | + + + + + + | RBC | 3.62 (L) | 4.30 - 5.70 | [facility] | | | | | M/uL | [facility] | | | | | | MEDICAL | | | | | | CENTER - | | | | | | LABORATORY | | + + + + + + | Hemoglobin | 11.4 (L) | 13.5 - 18.0 | [facility] | | | | | g/dL | [facility] | | | | | | MEDICAL | | | | | | CENTER - | | | | | | LABORATORY | | + + + + + + | Hematocrit | 35.5 (L) | 40.0 - 51.0 % | [facility] | | | | | | [facility] | | | | | | MEDICAL | | | | | | CENTER - | | | | | | LABORATORY | | + + + + + + | MCV | 98.1 | 83.0 - 101.0 fL | [facility] | | | | | | [facility] | | | | | | [facility] | | | | | | CENTER - | | | | | | LABORATORY | | + + + + + + | MCH | 31.5 | 28.0 - 35.0 pg | [facility] | | | | | | [facility] | | | | | | MEDICAL | | | | | | CENTER - | | | | | | LABORATORY | | + + + + + + | MCHC | 32.1 | 32.0 - 36.0 | [facility] | | | | | g/dL | [facility] | | | | | | MEDICAL | | | | | | CENTER - | | | | | | LABORATORY | | + + + + + + | RDW-CV | 15.2 (H) | <15.0 % | [facility] | | | | | | [facility] | | | | | | MEDICAL | | | | | | CENTER - | | | | | | LABORATORY | | + + + + + + | RDW-SD | 54.4 (H) | 35.1 - 46.3 fL | [facility] | | | | | | [facility] | | | | | | MEDICAL | | | | | | CENTER - | | | | | | LABORATORY | | + + + + + + | Platelet | 131 (L) | 140 - 440 K/uL | [facility] | | | Count | | | [facility] | | | | | | [facility] | | | | | | CENTER - | | | | | | LABORATORY | | + + + + + + | MPV | 11.0 | 6.5 - 12.4 fL | [facility] | | | | | | [facility] | | | | | | [facility] | | | | | | CENTER - | | | | | | LABORATORY | | + + + + + + | % nRBC | 0 | 0 - 2 per 100 | [facility] | | | | | WBCs | [facility] | | | | | | [facility] | | | | | | CENTER - | | | | | | LABORATORY | | + + + + + + | Absolute | 0.00 | 0.00 - 0.01 | [facility] | | | nRBC | | K/uL | [facility] | | | | [...] + | [facility] | [address] | [place] | [phone] | | [facility] | | [address] | | | - LABORATORY | | | | + + + + + Vancomycin Level (10/30/2018 4:12 AM PDT) + +-------+ + + + | Component | Value | Ref Range | Performed | Pathologist | | | | | At | Signature | + +-------+ + + + | Date of | | | [facility] | | | Last Dose | | | [facility] | | | | | | [facility]ICAL | | | | | | CENTER - | | | | | | LABORATORY | | + +-------+ + + + | Time of | | | [facility] | | | Last Dose | | | [facility] | | | | | | [facility] | | | | | | CENTER - | | | | | | LABORATORY | | + +-------+ + + + | Vancomycin | 19.5 | 5.0 - 40.0 | [facility] | | | Random | | ug/mL | [facility] | | | | [...] + | [facility] | [address] | [place] | [phone] | | [facility] | | [address] | | | - LABORATORY | | | | + + + + + POC Glucose (10/29/2018 7:55 PM PDT) + +---------+ + + + | Component | Value | Ref Range | Performed | Pathologist | | | | | At | Signature | + +---------+ + + + | Glucose, | 229 (H) | 70 - 109 mg/dL | [facility] | | | POC | | | [facility] | | | | | | MEDICAL | | | | | | CENTER - | | | | | | LABORATORY | | + +---------+ + + + + + | Specimen | + + | Blood | + + + + + + + | Performing | Address | City/State/Zipcode | Phone Number | | Organization | | | | + + + + + | [facility] | [address] | [place] | [phone] | | [facility] | | [address] | | | - LABORATORY | | | | + + + + + Extra Lavender Top Tube (10/29/2018 5:56 PM PDT) + +-------+ + + + | Component | Value | Ref Range | Performed | Pathologist | | | | | At | Signature | + +-------+ + + + | Extra | Done | | [facility] | | | Lavender | | | [facility] | | | Top Tube | | | MEDICAL | | | [...] | + + + + + | [facility] | [address] | [place] | [phone] | | [facility] | | [address] | | | - LABORATORY | | | | + + + + + Vancomycin Level (10/29/2018 5:55 PM PDT) + +-------+ + + + | Component | Value | Ref Range | Performed | Pathologist | | | | | At | Signature | + +-------+ + + + | Date of | | | [facility] | | | Last Dose | | | [facility] | [facility] | | | [facility] | | | | | | [facility]ENTER - | | | | | | LABORATORY | | + +-------+ + + + | Time of | | | [facility] | | | Last Dose | | | [facility] | | | | | | MEDICAL | | | | | | CENTER - | | | | | | LABORATORY | | + +-------+ + + + | Vancomycin | 21.9 | 5.0 - 40.0 | [facility] | | | Random | | ug/mL | [facility] | | | | [...] [address] | [place] | [phone] | | [facility] | | [address] | | | - LABORATORY | | | | + + + + + POC Glucose (10/29/2018 5:06 PM PDT) + +---------+ + + + | Component | Value | Ref Range | Performed | Pathologist | | | | | At | Signature | + +---------+ + + + | Glucose, | 148 (H) | 70 - 109 mg/dL | [facility] | | | POC | | | [facility] | | | | | | MEDICAL | | | | | | CENTER - | | | | | | LABORATORY | | + +---------+ + + + + + | Specimen | + + | Blood | + + + + + + + | Performing | Address | City/State/Zipcode | Phone Number | | Organization | | | | + + + + + | [facility] | [address] | [place] | [phone] | | [facility] | | [address] | | | - LABORATORY | | | | + + + + + POC Glucose (10/29/2018 11:42 AM PDT) + +-------+ + + + | Component | Value | Ref Range | Performed | Pathologist | | | | | At | Signature | + +-------+ + + + | Glucose, | 109 | 70 - 109 mg/dL | [facility] | | | POC [...] + | [facility] | [address] | [place] | [phone] | | [facility] | | [address] | | | - LABORATORY | | | | + + + + + POC Glucose (10/29/2018 6:33 AM PDT) + +-------+ + + + | Component | Value | Ref Range | Performed | Pathologist | | | | | At | Signature | + +-------+ + + + | Glucose, | 107 | 70 - 109 mg/dL | [facility] | | | POC | | | [facility] | | | | | | [...] [address] | [place] | [phone] | | [facility] | | [address] | | | - LABORATORY | | | | + + + + + Magnesium (10/29/2018 4:25 AM PDT) + +-------+ + + + | Component | Value | Ref Range | Performed | Pathologist | | | | | At | Signature | + +-------+ + + + | Magnesium | 2.0 | 1.6 - 2.6 mg/dL | [facility] | | | | [...] [address] | [place] | [phone] | | [facility] | | [address] | | | - LABORATORY | | | | + + + + + Basic Metabolic Panel (10/29/2018 4:25 AM PDT) + + + + + + | Component | Value | Ref Range | Performed | Pathologist | | | | | At | Signature | + + + + + + | Na | 132 (L) | 136 - 145 | [facility] | | | | | mmol/L | [facility] | | | | | | MEDICAL | | | | | | CENTER - | | | | | | LABORATORY | | + + + + + + | K | 5.4 (H) | 3.4 - 5.1 | [facility] | | | | | mmol/L | [facility] | | | | | | MEDICAL | | | | | | CENTER - | | | | | | LABORATORY | | + + + + + + | Cl | 99 | 98 - 107 mmol/L | [facility] | | | | | | [facility] | | | | | | MEDICAL | | | | | | CENTER - | | | | | | LABORATORY | | + + + + + + | CO2 | 26 | 20 - 31 mmol/L | [facility] | | | | | | [facility] | | | | | | MEDICAL | | | | | | CENTER - | | | | | | LABORATORY | | + + + + + + | Anion Gap | 7 | 3 - 16 mmol/L | [facility] | | | | | | [facility] | | | | | | MEDICAL | | | | | | CENTER - | | | | | | LABORATORY | | + + + + + + | Glucose | 136 (H) | 60 - 106 mg/dL | [facility] | | | | | | [facility] | | | | | | MEDICAL | | | | | | CENTER - | | | | | | LABORATORY | | + + + + + + | BUN | 73 (H) | 9 - 23 mg/dL | [facility] | | | | | | [facility] | | | | | | MEDICAL | | | | | | CENTER - | | | | | | LABORATORY | | + + + + + + | Creatinine | 6.15 (H) | 0.70 - 1.30 | [facility] | | | | | mg/dL | [facility] | | | | | | MEDICAL | | | | | | CENTER - | | | | | | LABORATORY | | + + + + + + | eGFR if not | 9 (L) | >=60 | [facility] | | | | | mL/min/1.73m2 | [facility] | | | [facility] | | | MEDICAL | | | | | | CENTER - | | | | | | LABORATORY | | + + + + + + | Calcium | 8.8 | 8.7 - 10.4 | [facility] | | | | | mg/dL | [facility] | | | | | | MEDICAL | | | | | | CENTER - | | | | | | LABORATORY | | + + + + + + | BUN/Creatin | 11.9 | | [facility] | | | ine Ratio | | | [facility] | | [...] ST. | [address] | [place] | [phone] | | [facility] | | [address] | | | - LABORATORY | | | | + + + + + CBC no Differential (10/29/2018 4:25 AM PDT) + + + + + + | Component | Value | Ref Range | Performed | Pathologist | | | | | At | Signature | + + + + + + | WBC | 7.7 | 4.0 - 11.0 K/uL | [facility] | | | | | | [facility] | | | | | | [facility]ICAL | | | | | | CENTER - | | | | | | LABORATORY | | + + + + + + | RBC | 3.94 (L) | 4.30 - 5.70 | [facility] | | | | | M/uL | [facility] | | | | | | MEDICAL | | | | | | CENTER - | | | | | | LABORATORY | | + + + + + + | Hemoglobin | 12.1 (L) | 13.5 - 18.0 | [facility] | | | | | g/dL | [facility] | | | | | | MEDICAL | | | | | | CENTER - | | | | | | LABORATORY | | + + + + + + | Hematocrit | 38.9 (L) | 40.0 - 51.0 % | [facility] | | | | | | [facility] | | | | | | MEDICAL | | | | | | CENTER - | | | | | | LABORATORY | | + + + + + + | MCV | 98.7 | 83.0 - 101.0 fL | [facility] | | | | | | [facility] | | | | | | MEDICAL | | | | | | CENTER - | | | | | | LABORATORY | | + + + + + + | MCH | 30.7 | 28.0 - 35.0 pg | [facility] | | | | | | [facility] | | | | | | MEDICAL | | | | | | CENTER - | | | | | | LABORATORY | | + + + + + + | MCHC | 31.1 (L) | 32.0 - 36.0 | [facility] | | | | | g/dL | [facility] | | | | | | MEDICAL | | | | | | CENTER - | | | | | | LABORATORY | | + + + + + + | RDW-CV | 15.5 (H) | <15.0 % | [facility] | | | | | | [facility] | | | | | | MEDICAL | | | | | | CENTER - | | | | | | LABORATORY | | + + + + + + | RDW-SD | 55.7 (H) | 35.1 - 46.3 fL | [facility] | | | | | | [facility] | | | | | | MEDICAL | | | | | | CENTER - | | | | | | LABORATORY | | + + + + + + | Platelet | 129 (L) | 140 - 440 K/uL | [facility] | | | Count | | | [facility] | | | | | | MEDICAL | | | | | | CENTER - | | | | | | LABORATORY | | + + + + + + | MPV | 11.3 | 6.5 - 12.4 fL | [facility] | | | | | | [facility] | | [facility] | | [facility] | | | | | | CENTER - | | | | | | LABORATORY | | + + + + + + | Immature | 3.8Comment: Low PLT + | 0.9 - 11.2 % | [facility] | | | Platelet | Low IPF are consistent | | [facility] | | | Fraction | with a production | | MEDICAL | | | | disorder. Low PLT + High | | CENTER - | | | | IPF are consistent with | | LABORATORY | | | | destruction mechanism. | | | | + + + + + + | % nRBC | 0 | 0 - 2 per 100 | [facility] | | | | | WBCs | [facility] | | | | | | MEDICAL | | | | | | CENTER - | | | | | | LABORATORY | | + + + + + + | Absolute | 0.00 | 0.00 - 0.01 | [facility] | | | nRBC | | K/uL | [facility] | | | | [...] [address] | [place] | [phone] | | [facility] | | [address] | | | - LABORATORY | | | | + + + + + POC Glucose (10/28/2018 9:54 PM PDT) + +---------+ + + + | Component | Value | Ref Range | Performed | Pathologist | | | | | At | Signature | + +---------+ + + + | Glucose, | 151 (H) | 70 - 109 mg/dL | [facility] | | | POC | | | [facility] | | | | | | MEDICAL | | | | | | CENTER - | | | | | | LABORATORY | | + +---------+ + + + + + | Specimen | + + | Blood | + + + + + + + | Performing | Address | City/State/Zipcode | Phone Number | | Organization | | | | + + + + + | [facility] | [address] | [place] | [phone] | | [facility] | | [address] | | | - LABORATORY | | | | + + + + + POC Glucose (10/28/2018 4:29 PM PDT) + +-------+ + + + | Component | Value | Ref Range | Performed | Pathologist | | | | | At | Signature | + +-------+ + + + | Glucose, | 106 | 70 - 109 mg/dL | [facility] | | | POC | | | [facility] | | [...] + | [facility] | [address] | [place] | [phone] | | [facility] | | [address] | | | - LABORATORY | | | | + + + + + POC Glucose (10/28/2018 11:28 AM PDT) + +-------+ + + + | Component | Value | Ref Range | Performed | Pathologist | | | | | At | Signature | + +-------+ + + + | Glucose, | 90 | 70 - 109 mg/dL | [facility] | | | POC [address] | [place] | [phone] | | [facility] | | [address] | | | - LABORATORY | | | | + + + + + POC Glucose (10/28/2018 7:02 AM PDT) + +-------+ + + + | Component | Value | Ref Range | Performed | Pathologist | | | | | At | Signature | + +-------+ + + + | Glucose, | 81 | 70 - 109 mg/dL | [facility] | | | POC | | | [facility] | | [...] + | [facility] | [address] | [place] | [phone] | | [facility] | | [address] | | | - LABORATORY | | | | + + + + + CBC no Differential (10/28/2018 4:17 AM PDT) + + + + + + | Component | Value | Ref Range | Performed | Pathologist | | | | | At | Signature | + + + + + + | WBC | 12.4 (H) | 4.0 - 11.0 K/uL | [facility] | | | | | | [facility] | | | | | | MEDICAL | | | | | | CENTER - | | | | | | LABORATORY | | + + + + + + | RBC | 3.59 (L) | 4.30 - 5.70 | [facility] | | | | | M/uL | [facility] | | | | | | MEDICAL | | | | | | CENTER - | | | | | | LABORATORY | | + + + + + + | Hemoglobin | 11.4 (L) | 13.5 - 18.0 | [facility] | | | | | g/dL | [facility] | | | | | | MEDICAL | | | | | | CENTER - | | | | | | LABORATORY | | + + + + + + | Hematocrit | 36.1 (L) | 40.0 - 51.0 % | [facility] | | | | | | [facility] | | | | | | MEDICAL | | | | | | CENTER - | | | | | | LABORATORY | | + + + + + + | MCV | 100.6 | 83.0 - 101.0 fL | [facility] | | | | | | [facility] | | | | | | MEDICAL | | | | | | CENTER - | | | | | | LABORATORY | | + + + + + + | MCH | 31.8 | 28.0 - 35.0 pg | [facility] | | | | | | [facility] | | | | | | MEDICAL | | | | | | CENTER - | | | | | | LABORATORY | | + + + + + + | MCHC | 31.6 (L) | 32.0 - 36.0 | [facility] | | | | | g/dL | [facility] | | | | | | MEDICAL | | | | | | CENTER - | | | | | | LABORATORY | | + + + + + + | RDW-CV | 15.8 (H) | <15.0 % | [facility] | | | | | | [facility] | | | | | | MEDICAL | | | | | | CENTER - | | | | | | LABORATORY | | + + + + + + | RDW-SD | 58.6 (H) | 35.1 - 46.3 fL | [facility] | | | | | | [facility] | | | | | | MEDICAL | | | | | | CENTER - | | | | | | LABORATORY | | + + + + + + | Platelet | 146 | 140 - 440 K/uL | [facility] | | | Count | | | [facility] | | | | | | MEDICAL | | | | | | CENTER - | | | | | | LABORATORY | | + + + + + + | MPV | 10.8 | 6.5 - 12.4 fL | [facility] | | | | | | [facility] | | | | | | MEDICAL | | | | | | CENTER - | | | | | | LABORATORY | | + + + + + + | % nRBC | 0 | 0 - 2 per 100 | [facility] | | | | | WBCs | [facility] | | | | | | MEDICAL | | | | | | CENTER - | | | | | | LABORATORY | | + + + + + + | Absolute | 0.00 | 0.00 - 0.01 | [facility] | | | nRBC | | K/uL | [facility] | | | | [...] + + + + + | [facility] | [address] | [place] | [phone] | | [facility] | | [address] | | | - LABORATORY | | | | + + + + + Magnesium (10/28/2018 4:16 AM PDT) + +-------+ + + + | Component | Value | Ref Range | Performed | Pathologist | | | | | At | Signature | + +-------+ + + + | Magnesium | 1.7 | 1.6 - 2.6 mg/dL | [facility] | | | | [...] [address] | [place] | [phone] | | [facility] | | [address] | | | - LABORATORY | | | | + + + + + Basic Metabolic Panel (10/28/2018 4:16 AM PDT) + + + + + + | Component | Value | Ref Range | Performed | Pathologist | | | | | At | Signature | + + + + + + | Na | 131 (L) | 136 - 145 | [facility] | | | | | mmol/L | [facility] | | | | | | MEDICAL | | | | | | CENTER - | | | | | | LABORATORY | | + + + + + + | K | 4.6 | 3.4 - 5.1 | [facility] | | | | | mmol/L | [facility] | | | | | | MEDICAL | | | | | | CENTER - | | | | | | LABORATORY | | + + + + + + | Cl | 100 | 98 - 107 mmol/L | [facility] | | | | | | [facility] | | | | | | MEDICAL | | | | | | CENTER - | | | | | | LABORATORY | | + + + + + + | CO2 | 26 | 20 - 31 mmol/L | [facility] | | | | | | [facility] | | | | | | MEDICAL | | | | | | CENTER - | | | | | | LABORATORY | | + + + + + + | Anion Gap | 5 | 3 - 16 mmol/L | [facility] | | | | | | [facility] | | | | | | MEDICAL | | | | | | CENTER - | | | | | | LABORATORY | | + + + + + + | Glucose | 137 (H) | 60 - 106 mg/dL | [facility] | | | | | | [facility] | | | | | | MEDICAL | | | | | | CENTER - | | | | | | LABORATORY | | + + + + + + | BUN | 56 (H) | 9 - 23 mg/dL | [facility] | | | | | | [facility] | | | | | | MEDICAL | | | | | | CENTER - | | | | | | LABORATORY | | + + + + + + | Creatinine | 4.94 (H) | 0.70 - 1.30 | [facility] | | | | | mg/dL | [facility] | | | | | | MEDICAL | | | | | | CENTER - | | | | | | LABORATORY | | + + + + + + | eGFR if not | 12 (L) | >=60 | [facility] | | | | | mL/min/1.73m2 | [facility] | | | [facility] | | | MEDICAL | | | | | | CENTER - | | | | | | LABORATORY | | + + + + + + | Calcium | 8.8 | 8.7 - 10.4 | [facility] | | | | | mg/dL | [facility] | | | | | | MEDICAL | | | | | | CENTER - | | | | | | LABORATORY | | + + + + + + | BUN/Creatin | 11.3 | | [facility] | | | ine [...] + + + + + | [facility] | [address] | [place] | [phone] | | [facility] | | [address] | | | - LABORATORY | | | | + + + + + Vancomycin Level (10/28/2018 4:16 AM PDT) + +-------+ + + + | Component | Value | Ref Range | Performed | Pathologist | | | | | At | Signature | + +-------+ + + + | Date of | | | [facility] | | | Last Dose | | | [facility] | | | | | | MEDICAL | | | | | | CENTER - | | | | | | LABORATORY | | + +-------+ + + + | Time of | | | [facility] | | | Last Dose | | | [facility] | | | | | | MEDICAL | | | | | | CENTER - | | | | | | LABORATORY | | + +-------+ + + + | Vancomycin | 12.3 | 5.0 - 40.0 | [facility] | | | Random | | ug/mL | [facility] | | | | [...] + | [facility] | [address] | [place] | [phone] | | [facility] | | [address] | | | - LABORATORY | | | | + + + + + Troponin I (10/28/2018 4:16 AM PDT) + + + + + + | Component | Value | Ref Range | Performed | Pathologist | | | | | At | Signature | + + + + + + | Troponin I | 0.19 (H) | <0.06 ng/mL | [facility] | | | | | [...] | + + + + + | [facility] | [address] | [place] | [phone] | | [facility] | | [address] | | | - LABORATORY | | | | + + + + + POC Glucose (10/27/2018 8:30 PM PDT) + +---------+ + + + | Component | Value | Ref Range | Performed | Pathologist | | | | | At | Signature | + +---------+ + + + | Glucose, | 193 (H) | 70 - 109 mg/dL | [facility] | | | POC | | | [facility] | | | | | | MEDICAL | | | | | | CENTER - | | | | | | LABORATORY | | + +---------+ + + + + + | Specimen | + + | Blood | + + + + + + + | Performing | Address | City/State/Zipcode | Phone Number | | Organization | | | | + + + + + | [facility] | [address] | [place] | [phone] | | [facility] | | [address] | | | - LABORATORY | | | | + + + + + POC Glucose (10/27/2018 4:43 PM PDT) + +---------+ + + + | Component | Value | Ref Range | Performed | Pathologist | | | | | At | Signature | + +---------+ + + + | Glucose, | 206 (H) | 70 - 109 mg/dL | [facility] | | | POC | | | [facility] | | | | | | MEDICAL | | | | | | CENTER - | | | | | | LABORATORY | | + +---------+ + + + + + | Specimen | + + | Blood | + + + + + + + | Performing | Address | City/State/Zipcode | Phone Number | | Organization | | | | + + + + + | [facility] | [address] | [place] | [phone] | | [facility] | | [address] | | | - LABORATORY | | | | + + + + + Troponin I (10/27/2018 4:05 PM PDT) + + + + + + | Component | Value | Ref Range | Performed | Pathologist | | | | | At | Signature | + + + + + + | Troponin I | 0.32 (H) | <0.06 ng/mL | [facility] | | | | | | [facility] [...] | + + + + + | [facility] | [address] | [place] | [phone] | | [facility] | | [address] | | | - LABORATORY | | | | + + + + + Legionella, Ag, EIA, Qual, Urine (10/27/2018 3:36 PM PDT) + + + + + + | Component | Value | Ref Range | Performed | Pathologist | | | | | At | Signature | + + + + + + | L. | NegativeComment: | Negative | [facility] | | | pneumophila | Presumptive negative for | | LAB [facility] | | | Serogp 1 | L. pneumophila | | - BKR | | | Ur Ag | serogroup 1 antigen in | | | | | | urine,suggesting no | | | | | | recent or current | | | | | | infection. Legionnaires' | | | | | | diseasecannot be ruled | | | | | | out since other | | | | | | serogroups and species | | | | | | may also causedisease. | | | | + + + + + + + + | Specimen | + + | Urine - Urine | | specimen obtained by | | clean catch | | procedure (specimen) | + + + + + | Narrative | Performed At | + + + | Performed at: 01 - [facility] [address], | REFERENCE LAB | | [place], [place] [id number] Director Data Processing: Salazar Ocampo MD, Phone: | [facility] | | [phone] | | + + + + + + + + | Performing | Address | City/State/Zipcode | Phone Number | | Organization | | | | + + + + + | REFERENCE LAB | [address] | [place] [address] | [phone] | | [facility] | [address] | | | + + + + + Streptococcus Pneumoniae Ag, Urine (10/27/2018 3:36 PM PDT) + + + + + + | Component | Value | Ref Range | Performed | Pathologist | | | | | At | Signature | + + + + + + | Specimen | Urine | | REFERENCE | | | Source | | | [facility] | | | | | | - BKR | | + + + + + + | Streptococc | Negative | Negative | REFERENCE | | | us | | | [facility] | | | pneumoniae | | | - BKR | | + + + + + + | Body Fluid | Not Indicated | | REFERENCE | | | Culture, | | | [facility] | | | Sterile | | | - BKR | | + + + + + + | Organism ID | Not indicated. | | REFERENCE | | | | | | [facility] | | | | | | - BKR | | + + + + + + | Please note | CommentComment: Lata | | REFERENCE | | | | of [place] [employer]ologists | | [facility] | | | | standards require a | | - BKR | | | | culture to beperformed | | | | | | on CSF specimens | | | | | | submitted for bacterial | | | | | | antigen testing.(CAP | | | | | | [id number]) Urine | | | | | | specimens will not be | | | | | | cultured. | | | | + + + + + + + + | Specimen | + + | Urine | + + + + + | Narrative | Performed At | + + + | Performed at: 01 - [facility] [address] [facility], | REFERENCE LAB | | [place], [place] [id number] Director Data Processing: Judy Tovar MD, Phone: | [facility] | | [phone] | | + + + + + + + + | Performing | Address | City/State/Zipcode | Phone Number | | Organization | | | | + + + + + | REFERENCE LAB | [address] | [place] [address] | [phone] | | [facility] | [address] | | | + + + + + XR Chest AP Portable (10/27/2018 1:50 PM PDT) + + | Specimen | + + | | + + + + + | Narrative | Performed At | + + + | CLINICAL INFORMATION: picc line placement WILL CALL WHEN READY. | [facility] | | COMPARISON: 10/26/2018. FINDINGS: Portable frontal chest | | | radiograph. Lines: Stable positioning of the right chest tunneled | | | dual-lumen central venous catheter. Interval placement of a left | | | PICC line with the line coiled in the left subclavian vein. | | | Lungs: Unchanged aeration of the lungs with persistent airspace | | | opacity at the right lower lung and diffuse mild prominence of the | | | interstitial lung markings. No pneumothorax. Heart/mediastinum: | | | Stable cardiomegaly. Stable left chest cardiac pacer device. Median | | | sternotomy changes. IMPRESSION - Left PICC line coiled in the | | | mid left subclavian vein. Unchanged appearance of the lungs and | | | heart. Dictated and Signed by: Sheldon Gatica MD | | | Electronically signed: 10/27/2018 2:38 PM | | + + + + + | Procedure Note | + + | Lalo, Rad Results In - 10/27/2018 2:41 PM PDT | | CLINICAL INFORMATION: picc line placement WILL CALL WHEN READY. | | | | COMPARISON: 10/26/2018. | | | | FINDINGS: | | Portable frontal chest radiograph. | | | | Lines: Stable positioning of the right chest tunneled dual-lumen central venous | | catheter. Interval placement of a left PICC line with the line coiled in the | | left subclavian vein. | | | | Lungs: Unchanged aeration of the lungs with persistent airspace opacity at the | | right lower lung and diffuse mild prominence of the interstitial lung markings. | | No pneumothorax. | | | | Heart/mediastinum: Stable cardiomegaly. Stable left chest cardiac pacer device. | | Median sternotomy changes. | | | | | | IMPRESSION - | | Left PICC line coiled in the mid left subclavian vein. | | | | Unchanged appearance of the lungs and heart. | | | | Dictated and Signed by: Sheldon Gatica MD | | Electronically signed: 10/27/2018 2:38 PM | + + + +---------+ + + | Performing | Address | City/State/Zipcode | Phone Number | | Organization | | | | + +---------+ + + | [facility] | | | | + +---------+ + + Respiratory pathogen panel, NAAT (10/27/2018 12:40 PM PDT) + + + + + + | Component | Value | Ref Range | Performed | Pathologist | | | | | At | Signature | + + + + + + | Influenza A | Not Detected | Not Detected | [facility] | | | PCR | | | [facility] | | | | | | MEDICAL | | | | | | CENTER - | | | | | | LABORATORY | | + + + + + + | Influenza A | Not Detected | Not Detected | [facility] | | | H1 | | | [facility] | | | | | | MEDICAL | | | | | | CENTER - | | | | | | LABORATORY | | + + + + + + | Influenza A | Not Detected | Not Detected | [facility] | | | H3 | | | [facility] | | | | | | MEDICAL | | | | | | CENTER - | | | | | | LABORATORY | | + + + + + + | Influenza B | Not Detected | Not Detected | [facility] | | | PCR | | | [facility] | | | | | | MEDICAL | | | | | | CENTER - | | | | | | LABORATORY | | + + + + + + | Parainfluen | Not Detected | Not Detected | [facility] | | | za 1 | | | [facility] | | | | | | MEDICAL | | | | | | CENTER - | | | | | | LABORATORY | | + + + + + + | Parainfluen | Not Detected | Not Detected | [facility] | | | za 2 | | | [facility] | | | | | | MEDICAL | | | | | | CENTER - | | | | | | LABORATORY | | + + + + + + | Parainfluen | Not Detected | Not Detected | [facility] | | | za 3 | | | [facility] | | | | | | MEDICAL | | | | | | CENTER - | | | | | | LABORATORY | | + + + + + + | Parainfluen | Not Detected | Not Detected | [facility] | | | za 4 | | | [facility] | | | | | | MEDICAL | | | | | | CENTER - | | | | | | LABORATORY | | + + + + + + | RSV A | Not Detected | Not Detected | [facility] | | | | | | [facility] | | | | | | MEDICAL | | | | | | CENTER - | | | | | | LABORATORY | | + + + + + + | RSV B | Not Detected | Not Detected | [facility] | | | | | | [facility] | | | | | | MEDICAL | | | | | | CENTER - | | | | | | LABORATORY | | + + + + + + | Adenovirus | Not Detected | Not Detected | [facility] | | | | | | [facility] | | | | | | MEDICAL | | | | | | CENTER - | | | | | | LABORATORY | | + + + + + + | Human | Not Detected | Not Detected | [facility] | | | Metapneumov | | | [facility] | | | irus | | | MEDICAL | | | | | | CENTER - | | | | | | LABORATORY | | + + + + + + | Rhinovirus/ | Not Detected | Not Detected | [facility] | | | Enterovirus | | | [facility] | | | | | | MEDICAL | | | | | | CENTER - | | | | | | LABORATORY | | + + + + + + | Bordetella | Not Detected | Not Detected | [facility] | | | Pertussis | | | [facility] | | | PCR | | | MEDICAL | | | | | | CENTER - | | | | | | LABORATORY | | + + + + + + | Bordetella | Not Detected | Not Detected | [facility] | | | holmesii | | | [facility] | | | | | | MEDICAL | | | | | | CENTER - | | | | | | LABORATORY | | + + + + + + | Bordetella | Not Detected | Not Detected | [facility] | | | parapertuss | | | [facility] | | | is/bronchis | | | MEDICAL | | | eptica NAAT | | | CENTER - | | | | | | LABORATORY | | + + + + + + + + | Specimen | + + | Tissue - Entire | | nasopharynx (body | | structure) | + + + + + + + | Performing | Address | City/State/Zipcode | Phone Number | | Organization | | | | + + + + + | [facility] | [address] | [place] | [phone] | | [facility] | | [address] | | | - LABORATORY | | | | + + + + + POC Glucose (10/27/2018 11:39 AM PDT) + +---------+ + + + | Component | Value | Ref Range | Performed | Pathologist | | | | | At | Signature | + +---------+ + + + | Glucose, | 132 (H) | 70 - 109 mg/dL | [facility] | | | POC | | | [facility] | | | | | | MEDICAL | | | | | | CENTER - | | | | | | LABORATORY | | + +---------+ + + + + + | Specimen | + + | Blood | + + + + + + + | Performing | Address | City/State/Zipcode | Phone Number | | Organization | | | | + + + + + | [facility] | [address] | [place] | [phone] | | [facility] | | [address] | | | - LABORATORY | | | | + + + + + POC Glucose (10/27/2018 7:49 AM PDT) + +-------+ + + + | Component | Value | Ref Range | Performed | Pathologist | | | | | At | Signature | + +-------+ + + + | Glucose, | 90 | 70 - 109 mg/dL | [facility] | | | POC [...] + | [facility] | [address] | [place] | [phone] | | [facility] | | [address] | | | - LABORATORY | | | | + + + + + Magnesium (10/27/2018 3:39 AM PDT) + +-------+ + + + | Component | Value | Ref Range | Performed | Pathologist | | | | | At | Signature | + +-------+ + + + | Magnesium | 1.6 | 1.6 - 2.6 mg/dL | [facility] | | | | [...] | + + + + + | [facility] | [address] | [place] | [phone] | | [facility] | | [address] | | | - LABORATORY | | | | + + + + + CBC with Differential (10/27/2018 3:39 AM PDT) + + + + + + | Component | Value | Ref Range | Performed | Pathologist | | | | | At | Signature | + + + + + + | WBC | 19.4 (H) | 4.0 - 11.0 K/uL | [facility] | | | | | | [facility] | | | | | | MEDICAL | | | | | | CENTER - | | | | | | LABORATORY | | + + + + + + | RBC | 3.91 (L) | 4.30 - 5.70 | [facility] | | | | | M/uL | [facility] | | | | | | MEDICAL | | | | | | CENTER - | | | | | | LABORATORY | | + + + + + + | Hemoglobin | 12.3 (L) | 13.5 - 18.0 | [facility] | | | | | g/dL | [facility] | | | | | | MEDICAL | | | | | | CENTER - | | | | | | LABORATORY | | + + + + + + | Hematocrit | 38.4 (L) | 40.0 - 51.0 % | [facility] | | | | | | [facility] | | | | | | MEDICAL | | | | | | CENTER - | | | | | | LABORATORY | | + + + + + + | MCV | 98.2 | 83.0 - 101.0 fL | [facility] | | | | | | [facility] | | | | | | MEDICAL | | | | | | CENTER - | | | | | | LABORATORY | | + + + + + + | MCH | 31.5 | 28.0 - 35.0 pg | [facility] | | | | | | [facility] | | | | | | MEDICAL | | | | | | CENTER - | | | | | | LABORATORY | | + + + + + + | MCHC | 32.0 | 32.0 - 36.0 | [facility] | | | | | g/dL | [facility] | | | | | | MEDICAL | | | | | | CENTER - | | | | | | LABORATORY | | + + + + + + | RDW-CV | 15.9 (H) | <15.0 % | [facility] | | | | | | [facility] | | | | | | MEDICAL | | | | | | CENTER - | | | | | | LABORATORY | | + + + + + + | RDW-SD | 57.3 (H) | 35.1 - 46.3 fL | [facility] | | | | | | [facility] | | | | | | MEDICAL | | | | | | CENTER - | | | | | | LABORATORY | | + + + + + + | Platelet | 147 | 140 - 440 K/uL | [facility] | | | Count | | | [facility] | | | | | | MEDICAL | | | | | | CENTER - | | | | | | LABORATORY | | + + + + + + | MPV | 10.8 | 6.5 - 12.4 fL | [facility] | | | | | | [facility] | | | | | | MEDICAL | | | | | | CENTER - | | | | | | LABORATORY | | + + + + + + | % | 84.4 (H) | 45.0 - 82.0 % | [facility] | | | Neutrophils | | | [facility] | | | | | | MEDICAL | | | | | | CENTER - | | | | | | LABORATORY | | + + + + + + | % | 7.3 (L) | 20.0 - 45.0 % | [facility] | | | Lymphocytes | | | [facility] | | | | | | MEDICAL | | | | | | CENTER - | | | | | | LABORATORY | | + + + + + + | % Monocytes | 6.2 | 4.0 - 12.0 % | [facility] | | | | | | [facility] | | | | | | MEDICAL | | | | | | CENTER - | | | | | | LABORATORY | | + + + + + + | % | 0.0 | 0.0 - 5.0 % | [facility] | | | Eosinophils | | | [facility] | | | | | | MEDICAL | | | | | | CENTER - | | | | | | LABORATORY | | + + + + + + | % Basophils | 0.3 | 0.0 - 1.0 % | [facility] | | | | | | [facility] | | | | | | MEDICAL | | | | | | CENTER - | | | | | | LABORATORY | | + + + + + + | % Immature | 1.8 (H)Comment: | 0.0 - 0.4 % | [facility] | | | Granulocyte | Preliminary studIes have | | [facility] | | | s | indicated the IG% | | MEDICAL | | | | and/or IG# show promise | | CENTER - | | | | as an early screen for | | LABORATORY | | | | infection. | | | | + + + + + + | Absolute | 16.34 (H) | 1.80 - 8.50 | [facility] | | | Neutrophils | | K/uL | [facility] | | | | | | MEDICAL | | | | | | CENTER - | | | | | | LABORATORY | | + + + + + + | Absolute | 1.42 | 0.60 - 3.20 | [facility] | | | Lymphocytes | | K/uL | [facility] | | | | | | MEDICAL | | | | | | CENTER - | | | | | | LABORATORY | | + + + + + + | Absolute | 1.20 (H) | 0.00 - 1.00 | [facility] | | | Monocytes | | K/uL | [facility] | | | | | | MEDICAL | | | | | | CENTER - | | | | | | LABORATORY | | + + + + + + | Absolute | 0.00 | 0.00 - 0.40 | [facility] | | | Eosinophils | | K/uL | [facility] | | | | | | MEDICAL | | | | | | CENTER - | | | | | | LABORATORY | | + + + + + + | Absolute | 0.06 | 0.00 - 0.10 | [facility] | | | Basophils | | K/uL | [facility] | | | | | | MEDICAL | | | | | | CENTER - | | | | | | LABORATORY | | + + + + + + | Absolute | 0.34 (H) | 0.00 - 0.03 | [facility] | | | Immature | | K/uL | [facility] | | | Granulocyte | | | MEDICAL | | | s | | | CENTER - | | | | | | LABORATORY | | + + + + + + | % nRBC | 0 | 0 - 2 per 100 | [facility] | | | | | WBCs | [facility] | | | | | | MEDICAL | | | | | | CENTER - | | | | | | LABORATORY | | + + + + + + | Absolute | 0.00 | 0.00 - 0.01 | [facility] | | | nRBC | | K/uL | [facility] | | | | | | [...] [address] | [place] | [phone] | | [facility] | | [id number] | | | - LABORATORY | | | | + + + + + Basic Metabolic Panel (10/27/2018 3:39 AM PDT) + + + + + + | Component | Value | Ref Range | Performed | Pathologist | | | | | At | Signature | + + + + + + | Na | 133 (L) | 136 - 145 | [facility] | | | | | mmol/L | [facility] | | | | | | MEDICAL | | | | | | CENTER - | | | | | | LABORATORY | | + + + + + + | K | 4.9 | 3.4 - 5.1 | [facility] | | | | | mmol/L | [facility] | | | | | | MEDICAL | | | | | | CENTER - | | | | | | LABORATORY | | + + + + + + | Cl | 97 (L) | 98 - 107 mmol/L | [facility] | | | | | | [facility] | | | | | | MEDICAL | | | | | | CENTER - | | | | | | LABORATORY | | + + + + + + | CO2 | 26 | 20 - 31 mmol/L | [facility] | | [...] + + + + | Glucose | 176 (H) | 60 - 106 mg/dL | [facility] | | | | | | [facility] | | | | | | MEDICAL | | | | | | CENTER - | | | | | | LABORATORY | | + + + + + + | BUN | 66 (H) | 9 - 23 mg/dL | [facility] | | | | | | [facility] | | | | | | MEDICAL | | | | | | CENTER - | | | | | | LABORATORY | | + + + + + + | Creatinine | 5.54 (H) | 0.70 - 1.30 | [facility] | | | | | mg/dL | [facility] | | | | | | MEDICAL | | | | | | CENTER - | | | | | | LABORATORY | | + + + + + + | eGFR if not | 10 (L) | >=60 | [facility] | | | | | mL/min/1.73m2 | [facility] | | | [facility] | | | MEDICAL | | | | | | CENTER - | | | | | | LABORATORY | | + + + + + + | Calcium | 8.8 | 8.7 - 10.4 | [facility] | | | | | mg/dL | [facility] | | | | | | MEDICAL | | | | | | CENTER - | | | | | | LABORATORY | | + + + + + + | BUN/Creatin | 11.9 | | [facility] | | | ine Ratio | | | [facility] | | [...] ST. | [address] | [place], [place] | [phone] | | [facility] | | [address] | | | - LABORATORY | | | | + + + + + Troponin I (10/27/2018 1:18 AM PDT) + + + + + + | Component | Value | Ref Range | Performed | Pathologist | | | | | At | Signature | + + + + + + | Troponin I | 0.42 (H) | <0.06 ng/mL | [facility] | | | | | [...] [address] | [place] | [phone] | | [facility] | | [id number] | | | - LABORATORY | | | | + + + + + POC Glucose (10/26/2018 9:16 PM PDT) + +---------+ + + + | Component | Value | Ref Range | Performed | Pathologist | | | | | At | Signature | + +---------+ + + + | Glucose, | 193 (H) | 70 - 109 mg/dL | [facility] | | | POC | | | [facility] | | | | | | MEDICAL | | | | | | CENTER - | | | | | | LABORATORY | | + +---------+ + + + + + | Specimen | + + | Blood | + + + + + + + | Performing | Address | City/State/Zipcode | Phone Number | | Organization | | | | + + + + + | [facility] | [address] | [place] | [phone] | | [facility] | | [address] | | | - LABORATORY | | | | + + + + + Lactic Acid (10/26/2018 7:32 PM PDT) + +-------+ + + + | Component | Value | Ref Range | Performed | Pathologist | | | | | At | Signature | + +-------+ + + + | Lactate | 1.5 | 0.4 - 2.0 | [facility] | | | | | mmol/L | [facility] | | | | [...] [facility] | [address] | [place], [place] | [phone] | | [facility] | | [address] | | | - LABORATORY | | | | + + + + + Troponin I (10/26/2018 7:01 PM PDT) + + + + + + | Component | Value | Ref Range | Performed | Pathologist | | | | | At | Signature | + + + + + + | Troponin I | 0.38 (H) | <0.06 ng/mL | [facility] | | | | | [...] | + + + + + | [facility] | [address] | [place] | [phone] | | [facility] | | [address] | | | - LABORATORY | | | | + + + + + POC Glucose (10/26/2018 6:16 PM PDT) + +---------+ + + + | Component | Value | Ref Range | Performed | Pathologist | | | | | At | Signature | + +---------+ + + + | Glucose, | 185 (H) | 70 - 109 mg/dL | [facility] | | | POC | | | [facility] | | | | | | [facility]ICAL | | | | | | CENTER - | | | | | | LABORATORY | | + +---------+ + + + + + | Specimen | + + | Blood | + + + + + + + | Performing | Address | City/State/Zipcode | Phone Number | | Organization | | | | + + + + + | [facility] | [address] | [place] | [phone] | | [facility] | | [address] | | | - LABORATORY | | | | + + + + + Culture, MRSA (10/26/2018 5:00 PM PDT) + + + + + + | Component | Value | Ref Range | Performed | Pathologist | | | | | At | Signature | + + + + + + | Culture | 3+ Staphylococcus | | [facility] | | | | aureus,Methicillin | | [facility] | | | | resistant (MRSA)Comment: | | MEDICAL | | | | *INFECTION PREVENTION | | CENTER - | | | | ALERT - MRSA* CONTACT | | LABORATORY | | | | PRECAUTIONS REQUIRED. | | | | + + + + + + + + | Specimen | + + | Tissue - Both | | anterior nares (body | | structure) | + + + + + + + | Performing | Address | City/State/Zipcode | Phone Number | | Organization | | | | + + + + + | [facility] | [address] | [place] | [phone] | | [facility] | | [address] | | | - LABORATORY | | | | + + + + + CT Chest wo Contrast (10/26/2018 2:58 PM PDT) + + | Specimen | + + | | + + + + + | Narrative | Performed At | + + + | CT CHEST WO CONTRAST 10/26/2018 2:58 PM HISTORY: hypoxia. | [facility] | | COMPARISON: 10/26/2018 chest x-ray PROTOCOL: Axial images of the | | | chest were obtained. Coronal and sagittal reformations were acquired. | | | FINDINGS: LUNGS: Extensive areas of consolidation are seen | | | involving bilateral lower lobes and in the inferior aspect of the | | | left upper lobe and right middle lobe. No evidence for pneumothorax | | | or pleural effusion. HEART: Significant cardiomegaly, coronary artery | | | calcifications, and cardiac pacer leads are noted. VASCULATURE: | | | Enlargement of the pulmonary arteries measuring up to 4.2 cm. Mild | | | fusiform enlargement of the ascending aorta measuring up to 4.2 cm. | | | Right central catheter tip terminates in the right atrium. LYMPH | | | NODES: Reactive enlargement of multiple mediastinal lymph nodes. | | | MEDIASTINUM: Trachea and esophagus are normal. Neck base is normal. | | | ABDOMEN: The upper abdomen demonstrates no acute findings. | | | Micronodular contour of the liver suggestive of cirrhosis. SOFT | | | TISSUES: Chest wall structures are normal. Bilateral gynecomastia. | | | BONES: There are no acute osseous abnormalities. Multiple rib fracture | | | deformities are seen in the right posterior ribs. Median sternotomy | | | wires are present. IMPRESSION - Pronounced bilateral lower lung | | | zone pneumonia. Fusiform enlargement of the pulmonary arteries | | | which may suggest pulmonary artery hypertension. Significant | | | cardiomegaly. Fusiform enlargement of the ascending aorta | | | measuring up to 4.1 cm. Cirrhosis. Dictated and Signed by: | | | Fadi Shell MD Electronically signed: 10/26/2018 3:39 PM | | + + + + + | Procedure Note | + + | Lalo, Rad Results In - 10/26/2018 3:[address] CHEST WO CONTRAST 10/26/2018 2:58 PM | | | | HISTORY: hypoxia. | | | | COMPARISON: 10/26/2018 chest x-ray | | | | PROTOCOL: Axial images of the chest were obtained. Coronal and sagittal | | reformations were acquired. | | | | FINDINGS: | | | | LUNGS: Extensive areas of consolidation are seen involving bilateral lower lobes | | and in the inferior aspect of the left upper lobe and right middle lobe. No | | evidence for pneumothorax or pleural effusion. | | HEART: Significant cardiomegaly, coronary artery calcifications, and cardiac | | pacer leads are noted. | | VASCULATURE: Enlargement of the pulmonary arteries measuring up to 4.2 cm. Mild | | fusiform enlargement of the ascending aorta measuring up to 4.2 cm. Right | | central catheter tip terminates in the right atrium. | | LYMPH NODES: Reactive enlargement of multiple mediastinal lymph nodes. | | MEDIASTINUM: Trachea and esophagus are normal. Neck base is normal. | | ABDOMEN: The upper abdomen demonstrates no acute findings. Micronodular contour | | of the liver suggestive of cirrhosis. | | SOFT TISSUES: Chest wall structures are normal. Bilateral gynecomastia. | | BONES: There are no acute osseous abnormalities. Multiple rib fracture | | deformities are seen in the right posterior ribs. Median sternotomy wires are | | present. | | | | IMPRESSION - | | Pronounced bilateral lower lung zone pneumonia. | | | | Fusiform enlargement of the pulmonary arteries which may suggest pulmonary | | artery hypertension. | | | | Significant cardiomegaly. | | | | Fusiform enlargement of the ascending aorta measuring up to 4.1 cm. | | | | Cirrhosis. | | | | Dictated and Signed by: Fadi Shell MD | | Electronically signed: 10/26/2018 3:39 PM | + + + +---------+ + + | Performing | Address | City/State/Zipcode | Phone Number | | Organization | | | | + +---------+ + + | [facility] | | | | + +---------+ + + Culture, Urine (10/26/2018 2:04 PM PDT) + + + + + + | Component | Value | Ref Range | Performed | Pathologist | | | | | At | Signature | + + + + + + | Culture | No Growth | | [facility] | | | | | | [facility] | | | | | | MEDICAL | | | | | | CENTER - | | | | | | LABORATORY | | + + + + + + + + | Specimen | + + | Urine - Urine | | specimen obtained by | | clean catch | | procedure (specimen) | + + + + + + + | Performing | Address | City/State/Zipcode | Phone Number | | Organization | | | | + + + + + | [facility] | [address] | [place] | [phone] | | [facility] | | [address] | | | - LABORATORY | | | | + + + + + Urinalysis with Microscopic with Culture if Indicated (10/26/2018 2:04 PM PDT) + + + + + + | Component | Value | Ref Range | Performed | Pathologist | | | | | At | Signature | + + + + + + | Color | Shasta (A) | Light Yellow, | [facility] | | | | | Yellow, Straw | [facility] | | | | | | MEDICAL | | | | | | CENTER - | | | | | | LABORATORY | | + + + + + + | Clarity | Cloudy (A) | Clear | [facility] | | | | | | [facility] | | | | | | MEDICAL | | | | | | CENTER - | | | | | | LABORATORY | | + + + + + + | pH, Urine | 5.0 | 5.0 - 8.0 | [facility] | | | | | | [facility] | | | | | | MEDICAL | | | | | | CENTER - | | | | | | LABORATORY | | + + + + + + | Specific | 1.023 | 1.001 - 1.030 | [facility] | | | [place] | | | [facility] | | | | | | MEDICAL | | | | | | CENTER - | | | | | | LABORATORY | | + + + + + + | Protein, | 100 mg/dL (A) | Negative | [facility] | | | Urine | | | [facility] | | | | | | MEDICAL | | | | | | CENTER - | | | | | | LABORATORY | | + + + + + + | Blood, | Negative | Negative | [facility] | | | Urine | | | [facility] | | | | | | MEDICAL | | | | | | CENTER - | | | | | | LABORATORY | | + + + + + + | Glucose, | 50 mg/dL (A) | Negative | [facility] | | | Urine | | | [facility] | | | | | | MEDICAL | | | | | | CENTER - | | | | | | LABORATORY | | + + + + + + | Ketones, | Trace (A) | Negative | [facility] | | | Urine | | | [facility] | | | | | | MEDICAL | | | | | | CENTER - | | | | | | LABORATORY | | + + + + + + | Bilirubin, | Small (A) | Negative | [facility] | | | Urine | | | [facility] | | | | | | MEDICAL | | | | | | CENTER - | | | | | | LABORATORY | | + + + + + + | Nitrite, | Negative | Negative | [facility] | | | Urine | | | [facility] | | | | | | MEDICAL | | | | | | CENTER - | | | | | | LABORATORY | | + + + + + + | Leukocyte | Trace (A) | Negative | [facility] | | | Esterase, | | | [facility] | | | Urine | | | MEDICAL | | | | | | CENTER - | | | | | | LABORATORY | | + + + + + + | Urobilinoge | 4.0 mg/dL (A) | 0.2 mg/dL, 1.0 | [facility] | | | n, Urine | | mg/dL, Negative | [facility] | | | | | | MEDICAL | | | | | | CENTER - | | | | | | LABORATORY | | + + + + + + | WBC UA | 10-15 (A) | 0 - 2 /HPF | [facility] | | | | | | [facility] | | | | | | MEDICAL | | | | | | CENTER - | | | | | | LABORATORY | | + + + + + + | RBC UA | 0-2 | 0 - 2 /HPF | [facility] | | | | | | [facility] | | | | | | MEDICAL | | | | | | CENTER - | | | | | | LABORATORY | | + + + + + + | SQUAMOUS | 50-100 (A) | 0 - 2 /LPF | [facility] | | | EPITHELIAL | | | [facility] | | | UA | | | MEDICAL | | | | | | CENTER - | | | | | | LABORATORY | | + + + + + + | BACTERIA UA | 1+ (A) | Negative /HPF | [facility] | | | | | | [facility] | | | | | | MEDICAL | | | | | | CENTER - | | | | | | LABORATORY | | + + + + + + | MUCUS UA | Present (A) | Negative /LPF | [facility] | | | | | | [facility] | | | | | | MEDICAL | | | | | | CENTER - | | | | | | LABORATORY | | + + + + + + | AMORPHOUS | Few (A) | None Seen /HPF | [facility] | | | CRYSTALS | | | [facility] | | | | | | MEDICAL | | | | | | CENTER - | | | | | | LABORATORY | | + + + + + + | HYALINE | 5-10 (A) | 0 - 2 /LPF | [facility] | | | CASTS UA | | | [facility] | | | | | | MEDICAL | | | | | | CENTER - | | | | | | LABORATORY | | + + + + + + | URINE | Urine Culture Set Up | | [facility] | | | COMMENT | | | [facility] | | | | | | MEDICAL | | | | | | CENTER - | | | | | | LABORATORY | | + + + + + + + + | Specimen | + + | Urine - Urine | | specimen obtained by | | clean catch | | procedure (specimen) | + + + + + + + | Performing | Address | City/State/Zipcode | Phone Number | | Organization | | | | + + + + + | [facility] | [address] | [place] | [phone] | | [facility] | | [address] | | | - LABORATORY | | | | + + + + + XR Chest AP Portable (10/26/2018 1:56 PM PDT) + + | Specimen | + + | | + + + + + | Narrative | Performed At | + + + | CLINICAL INFORMATION: COUGH SHORTNESS OF BREATH FEVER (9 WEEKS | [facility] | | TO 75 YEARS). COMPARISON: 07/03/2018. FINDINGS: Portable | | | frontal chest radiograph. Stable right chest tunneled dual-lumen | | | central venous dialysis catheter. Lungs: Focal airspace opacity at | | | the right lower lung. There is mild prominence of the initial lung | | | markings, right greater than left. No pleural effusion or | | | pneumothorax. Heart/mediastinum: Stable cardiomegaly. Median | | | sternotomy changes. Left chest cardiac device appears stable. | | | Bones: No acute osseous abnormality appreciated. IMPRESSION - | | | Focal airspace disease at the right lower lung may represent | | | pneumonia. Similar appearing cardiomegaly with probable mild | | | pulmonary edema. Dictated and Signed by: Sheldon Gatica MD | | | Electronically signed: 10/26/2018 2:38 PM | | + + + + + | Procedure Note | + + | Lalo, Rad Results In - 10/26/2018 2:41 PM PDT | | CLINICAL INFORMATION: COUGH | | SHORTNESS OF BREATH | | FEVER (9 WEEKS TO 74 YEARS). | | | | COMPARISON: 07/03/2018. | | | | FINDINGS: | | Portable frontal chest radiograph. | | | | Stable right chest tunneled dual-lumen central venous dialysis catheter. | | | | Lungs: Focal airspace opacity at the right lower lung. There is mild prominence | | of the initial lung markings, right greater than left. No pleural effusion or | | pneumothorax. | | | | Heart/mediastinum: Stable cardiomegaly. Median sternotomy changes. Left chest | | cardiac device appears stable. | | | | Bones: No acute osseous abnormality appreciated. | | | | IMPRESSION - | | Focal airspace disease at the right lower lung may represent pneumonia. | | | | Similar appearing cardiomegaly with probable mild pulmonary edema. | | | | Dictated and Signed by: Sheldon Gatica MD | | Electronically signed: 10/26/2018 2:38 PM | + + + +---------+ + + | Performing | Address | City/State/Zipcode | Phone Number | | Organization | | | | + +---------+ + + | [facility] | | | | + +---------+ + + Culture, Blood (10/26/2018 1:18 PM PDT) + + + + + + | Component | Value | Ref Range | Performed | Pathologist | | | | | At | Signature | + + + + + + | Culture | No growth after 5 days | | [facility] | | | | incubation. | | [facility] | | | | | | MEDICAL | | | | | | CENTER - | | | | | | LABORATORY | | + + + + + + + + | Specimen | + + | Blood - Peripheral | | blood specimen | | (specimen) | + + + + + + + | Performing | Address | City/State/Zipcode | Phone Number | | Organization | | | | + + + + + | [facility] | [address] | [place] | [phone] | | [facility] | | [address] | | | - LABORATORY | | | | + + + + + Culture, Respiratory, Lower, Smear (10/26/2018 1:10 PM PDT) + + + + + + | Component | Value | Ref Range | Performed | Pathologist | | | | | At | Signature | + + + + + + | Culture | 3+ Usual Respiratory | | [facility] | | | | [place] | | [facility] | | | | | | MEDICAL | | | | | | CENTER - | | | | | | LABORATORY | | + + + + + + | Culture | 4+ Streptococcus | | [facility] | | | | pneumoniae | | [facility] | | | | | | MEDICAL | | | | | | CENTER - | | | | | | LABORATORY | | + + + + + + | Gram Stain | 3+ White Blood Cells | | [facility] | | | Result | | | [facility] | | | | | | MEDICAL | | | | | | CENTER - | | | | | | LABORATORY | | + + + + + + | Gram Stain | 2+ Epithelial cells | | [facility] | | | Result | | | [facility] | | | | | | MEDICAL | | | | | | CENTER - | | | | | | LABORATORY | | + + + + + + | Gram Stain | 2+ Gram positive cocci | | [facility] | | | Result | | | [facility] | | | | | | MEDICAL | | | | | | CENTER - | | | | | | LABORATORY | | + + + + + + | Gram Stain | 3+ Gram positive bacilli | | [facility] | | | Result | | | [facility] | | | | | | MEDICAL | | | | | | CENTER - | | | | | | LABORATORY | | + + + + + + | Gram Stain | 1+ Gram negative rods | | [facility] | | | Result | | | [facility] | | | | | | MEDICAL | | | | | | CENTER - | | | | | | LABORATORY | | + + + + + + + + | Specimen | + + | Body Fluid - Coughed | | sputum specimen | | (specimen) | + + + + +--------+ + | Organism | Antibiotic | Method | Susceptibility | + + +--------+ + | Streptococcus | Clindamycin | | <=0.25 ug/mL: | | pneumoniae | | | Sensitive | + + +--------+ + | Streptococcus | Erythromycin | | <=0.12 ug/mL: | | pneumoniae | | | Sensitive | + + +--------+ + | Streptococcus | Levofloxacin | | 1 ug/mL: Sensitive | | pneumoniae | | | | + + +--------+ + | Streptococcus | Linezolid | | <=2 ug/mL: | | pneumoniae | | | Sensitive | + + +--------+ + | Streptococcus | Moxifloxacin | | 0.12 ug/mL: | | pneumoniae | | | Sensitive | + + +--------+ + | Streptococcus | Penicillin G | | <=0.06 ug/mL: | | pneumoniae | | | Sensitive | + + +--------+ + | Streptococcus | Tetracycline | | <=0.25 ug/mL: | | pneumoniae | | | Sensitive | + + +--------+ + | Streptococcus | Tigecycline | | <=0.06 ug/mL: | | pneumoniae | | | Sensitive | + + +--------+ + | Streptococcus | Trimethoprim + | | <=10 ug/mL: | | pneumoniae | Sulfamethoxazole | | Sensitive | + + +--------+ + | Streptococcus | Vancomycin | | 0.5 ug/mL: | | pneumoniae | | | Sensitive | + + +--------+ + | Streptococcus | Cefotaxime | | <=0.12 ug/mL: | | pneumoniae | | | Sensitive | + + +--------+ + | Streptococcus | Ceftriaxone | | <=0.12 ug/mL: | | pneumoniae | | | Sensitive | + + +--------+ + + + + + + | Performing | Address | City/State/Zipcode | Phone Number | | Organization | | | | + + + + + | [facility] | [address] | [place] | [phone] | | [facility] | | [address] | | | - LABORATORY | | | | + + + + + Procalcitonin (10/26/2018 1:09 PM PDT) + + + + + + | Component | Value | Ref Range | Performed | Pathologist | | | | | At | Signature | + + + + + + | Procalciton | 0.56 (H) | <=0.50 ng/mL | [facility] | | | in | | | [facility] | | | | | | MEDICAL | | | | | | CENTER - | | | | | | LABORATORY | | + + + + + + | Comment | Comment: < 0.50 | | [facility] | | | | ng/mL:Procalcitonin | | [facility] | | | | levels below 0.50 ng/mL | | MEDICAL | | | | on the first day of | | CENTER - | | | | admission represents a | | LABORATORY | | | | low risk for progression | | | | | | to severe sepsis and/or | | | | | | septic shock, however | | | | | | these do not exclude an | | | | | | infection, because | | | | | | localized infections | | | | | | (without systemic signs) | | | | | | may also be associated | | | | | | with such low levels. | | | | | | > 2.00 | | | | | | ng/mL:Procalcitonin | | | | | | levels above 2.00 ng/mL | | | | | | on the first day of | | | | | | admission represents a | | | | | | high risk for | | | | | | progression to severe | | | | | | sepsis and/or septic | | | | | | shock. If the | | | | | | procalcitonin | | | | | | measurement is performed | | | | | | shortly after the | | | | | | systemic infection | | | | | | process has started | | | | | | (usually less than 6 | | | | | | hours), these values may | | | | | | still be low. As | | | | | | various non-infectious | | | | | | conditions are known to | | | | | | induce procalcitonin as | | | | | | well, procalcitonin | | | | | | levels between 0.50 | | | | | | ng/mL and 2.00 ng/mL | | | | | | should be reviewed | | | | | | carefully to take into | | | | | | account the specific | | | | | | clinical background and | | | | | | condition(s) of the | | | | | | individual patient. | | | | + + + + + + + + | Specimen | + + | Blood | + + + + + + + | Performing | Address | City/State/Zipcode | Phone Number | | Organization | | | | + + + + + | [facility] | [address] | [place] | [phone] | | [facility] | | [address] | | | - LABORATORY | | | | + + + + + Influenza A and B RNA, NAAT (10/26/2018 1:09 PM PDT) + + + + + + | Component | Value | Ref Range | Performed | Pathologist | | | | | At | Signature | + + + + + + | Influenza A | Negative | Negative | [facility] | | | PCR | | | [facility] | | | | | | MEDICAL | | | | | | CENTER - | | | | | | LABORATORY | | + + + + + + | Influenza B | Negative | Negative | [facility] | | | PCR | | | [facility] | | | | | | MEDICAL | | | | | | CENTER - | | | | | | LABORATORY | | + + + + + + + + | Specimen | + + | Tissue - Specimen | | from internal nose | | (specimen) | + + + + + + + | Performing | Address | City/State/Zipcode | Phone Number | | Organization | | | | + + + + + | [facility] | [address] | [place] | [phone] | | [facility] | | [address] | | | - LABORATORY | | | | + + + + + Lactic Acid (10/26/2018 1:09 PM PDT) + +---------+ + + + | Component | Value | Ref Range | Performed | Pathologist | | | | | At | Signature | + +---------+ + + + | Lactate | 2.6 (H) | 0.4 - 2.0 | [facility] | | | | | mmol/L | [facility] | | | | | | MEDICAL | | | | | | CENTER - | | | | | | LABORATORY | | + +---------+ + + + + + | Specimen | + + | Blood | + + + + + + + | Performing | Address | City/State/Zipcode | Phone Number | | Organization | | | | + + + + + | [facility] | [address] | [place] | [phone] | | [facility] | | [address] | | | - LABORATORY | | | | + + + + + Culture, Blood (10/26/2018 1:09 PM PDT) + + + + + + | Component | Value | Ref Range | Performed | Pathologist | | | | | At | Signature | + + + + + + | Culture | No growth after 5 days | | [facility] | | | | incubation. | | [facility] | | | | | | MEDICAL | | | | | | CENTER - | | | | | | LABORATORY | | + + + + + + + + | Specimen | + + | Blood - Peripheral | | blood specimen | | (specimen) | + + + + + + + | Performing | Address | City/State/Zipcode | Phone Number | | Organization | | | | + + + + + | [facility] | [address] | [place] | [phone] | | [facility] | | [address] | | | - LABORATORY | | | | + + + + + Protime INR (10/26/2018 1:09 PM PDT) + + + + + + | Component | Value | Ref Range | Performed | Pathologist | | | | | At | Signature | + + + + + + | Prothrombin | 15.4 (H) | 11.3 - 13.9 | [facility] | | | Time | | seconds | [facility] | | | | | | MEDICAL | | | | | | CENTER - | | | | | | LABORATORY | | + + + + + + | INR | 1.2 (H)Comment: Usual | 0.9 - 1.1 | [facility] | | | | Oral Anticoagulation | | [facility] | | | | Range: 2.0 - | | MEDICAL | | | | 3.0High Level Oral | | CENTER - | [...] | + + + + + | [facility] | [address] | [place] | [phone] | | [facility] | | [address] | | | - LABORATORY | | | | + + + + + B Type Natriuretic Peptide (10/26/2018 1:09 PM PDT) + +---------+ + + + | Component | Value | Ref Range | Performed | Pathologist | | | | | At | Signature | + +---------+ + + + | BNP | 600 (H) | <100 pg/mL | [facility] | | | | | | [facility] | | | | | | [facility] | | | | | | CENTER - | | | | | | LABORATORY | | + +---------+ + + + + + | Specimen | + + | Blood | + + + + + + + | Performing | Address | City/State/Zipcode | Phone Number | | Organization | | | | + + + + + | [facility] | [address] | [place] | [phone] | | [facility] | | [address] | | | - LABORATORY | | | | + + + + + Troponin I (10/26/2018 1:09 PM PDT) + + + + + + | Component | Value | Ref Range | Performed | Pathologist | | | | | At | Signature | + + + + + + | Troponin I | 0.15 (H) | <0.06 ng/mL | [facility] | | | | | [address] | [place] | [phone] | | [facility] | | [address] | | | - LABORATORY | | | | + + + + + Comprehensive Metabolic Panel (10/26/2018 1:09 PM PDT) + + + + + + | Component | Value | Ref Range | Performed | Pathologist | | | | | At | Signature | + + + + + + | Na | 131 (L) | 136 - 145 | [facility] | | | | | mmol/L | [facility] | | | | | | MEDICAL | | | | | | CENTER - | | | | | | LABORATORY | | + + + + + + | K | 4.5 | 3.4 - 5.1 | [facility] | | | | | mmol/L | [facility] | | | | | | MEDICAL | | | | | | CENTER - | | | | | | LABORATORY | | + + + + + + | Cl | 95 (L) | 98 - 107 mmol/L | [facility] | | | | | | [facility] | | | | | | MEDICAL | | | | | | CENTER - | | | | | | LABORATORY | | + + + + + + | CO2 | 27 | 20 - 31 mmol/L | [facility] | | | | | | [facility] | | | | | | MEDICAL | | | | | | CENTER - | | | | | | LABORATORY | | + + + + + + | Anion Gap | 9 | 3 - 16 mmol/L | [facility] | | | | | | [facility] | | | | | | MEDICAL | | | | | | CENTER - | | | | | | LABORATORY | | + + + + + + | Glucose | 265 (H) | 60 - 106 mg/dL | [facility] | | | | | | [facility] | | | | | | [facility] - | | | | | | LABORATORY | | + + + + + + | BUN | 56 (H) | 9 - 23 mg/dL | [facility] | | | | | | [facility] | | | | | [facility] - | | | | | | LABORATORY | | + + + + + + | Creatinine | 4.97 (H) | 0.70 - 1.30 | [facility] | | | | | mg/dL | [facility] | | | | | | [facility] | | | | | | [facility] - | | | | | | LABORATORY | | + + + + + + | eGFR if not | 12 (L) | >=60 | [facility] | | | | | mL/min/1.73m2 | [facility] | | [facility] | | | [facility] | | | | | | [facility] - | | | | | | LABORATORY | | + + + + + + | Calcium | 9.2 | 8.7 - 10.4 | [facility] | | | | | mg/dL | [facility] | | | | | | [facility] | | | | | | [facility] - | | | | | | LABORATORY | | + + + + + + | Albumin | 3.7 | 3.2 - 4.8 g/dL | [facility] | | | | | | [facility] | | | | | | [facility] | | | | | | [facility] - | | | | | | LABORATORY | | + + + + + + | Bilirubin | 1.0 | 0.3 - 1.2 mg/dL | [facility] | | | Total | | | [facility] | | | | | | [facility] | | | | [facility] - | | | | | | LABORATORY | | + + + + + + | Total | 7.4 | 5.7 - 8.2 g/dL | [facility] | | | Protein | | | [facility] | | | | | | [facility] | | [facility] - | | | | | | LABORATORY | | + + + + + + | AST | 30 | 0 - 34 U/L | [facility] | | | | | | [facility] | | | [facility] | | [facility] | | | | | [facility] - | | | | | | LABORATORY | | + + + + + + | ALT | 21 | 10 - 49 U/L | [facility] | | | | | | [facility] | | [facility] | [facility] | | | | [facility] - | | | | | | LABORATORY | | + + + + + + | Alkaline | 160 (H) | 46 - 116 U/L | [facility] | | | Phosphatase | | | [facility] | | | | | | [facility] | | | | | | [facility] - | | | | | | LABORATORY | | + + + + + + | Globulin | 3.7 | 2.1 - 3.8 g/dL | [facility] | | | | | | [facility] | | | | [facility] | [facility] | | | | [facility] - | | | | | | LAB[facility]ATORY | | + + + + + + | Albumin/Becky | 1.0 | 0.8 - 1.9 | [facility] | | | bulin Ratio | | | [facility] | | | | | | [facility] | | | | | | [facility] - | | | | | | LABORATORY | | + + + + + + | BUN/Creatin | 11.3 | | [facility] | | | ine Ratio | | | [facility] | | [...] ST. | [address] | [place], [place] | [phone] | | [facility] | | [address] | | | - LABORATORY | | | | + + + + + CBC w/ Auto Differential (10/26/2018 1:09 PM PDT) + + + + + + | Component | Value | Ref Range | Performed | Pathologist | | | | | At | Signature | + + + + + + | WBC | 13.9 (H) | 4.0 - 11.0 K/uL | [facility] | | | | | | [facility] | | [facility] | [facility] | | [facility] - | | | | | | LAB[facility]ATORY | | + + + + + + | RBC | 4.11 (L) | 4.30 - 5.70 | [facility] | | | | | M/uL | [facility] | | | | | | [facility] | | | | | | [facility] - | | | | | | LABORATORY | | + + + + + + | Hemoglobin | 13.4 (L) | 13.5 - 18.0 | [facility] | | | | | g/dL | [facility] | | | | | | [facility] | | | | | | [facility] - | | | | | | LABORATORY | | + + + + + + | Hematocrit | 40.2 | 40.0 - 51.0 % | [facility] | | | | | | [facility] | | | | | | [facility] | | | | | [facility] - | | | | | | LAB[facility]ATORY | | + + + + + + | MCV | 97.8 | 83.0 - 101.0 fL | [facility] | | | | | | [facility] | | | | | | [facility] | | | | | [facility] - | | | | | | LABORATORY | | + + + + + + | MCH | 32.6 | 28.0 - 35.0 pg | [facility] | | | | | | [facility] | | | | | | [facility] | | | | | | [facility] - | | | | | | LABORATORY | | + + + + + + | MCHC | 33.3 | 32.0 - 36.0 | [facility] | | | | | g/dL | [facility] | | | | | | [facility] | | | | | | C[facility] - | | | | | | LABORATORY | | + + + + + + | RDW-CV | 15.7 (H) | <15.0 % | [facility] | | | | | | [facility] | | | | | | [facility] | | | | | | [facility] - | | | | | | LABORATORY | | + + + + + + | RDW-SD | 55.5 (H) | 35.1 - 46.3 fL | [facility] | | | | | [facility] | | | | | | [facility] | | | | | [facility] - | | | | | | LABORATORY | | + + + + + + | Platelet | 166 | 140 - 440 K/uL | [facility] | | | Count | | | [facility] | | | | | | [facility] | | | | | | [facility] - | | | | | | LABORATORY | | + + + + + + | MPV | 10.6 | 6.5 - 12.4 fL | [facility] | | | | | | [facility] | | | | | | [facility] | | | | | | [facility] - | | | | | | LABORATORY | | + + + + + + | % | 90.0 (H) | 45.0 - 82.0 % | [facility] | | | Neutrophils | | | [facility] | | | | | | [facility] | | | | | | CENTER - | | | | | | LABORATORY | | + + + + + + | % | 3.6 (L) | 20.0 - 45.0 % | [facility] | | | Lymphocytes | | | [facility] | | | | | | [facility] | | | | | | CENTER - | | | | | | LABORATORY | | + + + + + + | % Monocytes | 5.5 | 4.0 - 12.0 % | [facility] | | | | | | [facility] | | | | | | [facility] | | | | | | [facility] - | | | | | | LABORATORY | | + + + + + + | % | 0.0 | 0.0 - 5.0 % | [facility] | | | Eosinophils | | | [facility] | | | | | | [facility] | | | | | | CENTER - | | | | | | LABORATORY | | + + + + + + | % Basophils | 0.2 | 0.0 - 1.0 % | [facility] | | | | | | [facility] | | | | | | [facility] | | | | | | [facility] - | | | | | | LABORATORY | | + + + + + + | % Immature | 0.7 (H)Comment: | 0.0 - 0.4 % | [facility] | | | Granulocyte | Preliminary studIes have | | [facility] | | | s | indicated the IG% | | MEDICAL | | | | and/or IG# show promise | | CENTER - | | | | as an early screen for | | LABORATORY | | | | infection. | | | | + + + + + + | Absolute | 12.52 (H) | 1.80 - 8.50 | [facility] | | | Neutrophils | | K/uL | [facility] | | | | | | [facility] | | | | | | CENTER - | | | | | | LABORATORY | | + + + + + + | Absolute | 0.50 (L) | 0.60 - 3.20 | [facility] | | | Lymphocytes | | K/uL | [facility] | | | | | | [facility] | | | | | | [facility]ENTER - | | | | | | LABORATORY | | + + + + + + | Absolute | 0.77 | 0.00 - 1.00 | [facility] | | | Monocytes | | K/uL | [facility] | | | | | | [facility] | | | | | | CENTER - | | | | | | LABORATORY | | + + + + + + | Absolute | 0.00 | 0.00 - 0.40 | [facility] | | | Eosinophils | | K/uL | [facility] | | | | | | [facility]ICAL | | | | | | CENTER - | | | | | | LABORATORY | | + + + + + + | Absolute | 0.03 | 0.00 - 0.10 | [facility] | | | Basophils | | K/uL | [facility] | | | | | | MEDICAL | | | | | | CENTER - | | | | | | LABORATORY | | + + + + + + | Absolute | 0.10 (H) | 0.00 - 0.03 | [facility] | | | Immature | | K/uL | [facility] | | | Granulocyte | | | MEDICAL | | | s | | | CENTER - | | | | | | LABORATORY | | + + + + + + | % nRBC | 0 | 0 - 2 per 100 | [facility] | | | | | WBCs | [facility] | | | | | | MEDICAL | | | | | | CENTER - | | | | | | LABORATORY | | + + + + + + | Absolute | 0.00 | 0.00 - 0.01 | [facility] | | | nRBC | | K/uL | [facility] | | | | [...] + | [facility] | [address] | [place] | [phone] | | [facility] | | [address] | | | - LABORATORY | | | | + + + + + ECG 12 lead (10/26/2018 12:53 PM PDT) + + + + + + | Component | Value | Ref Range | Performed | Pathologist | | | | | At | Signature | + + + + + + | VENTRICULAR | 73 | BPM | [facility] | | | RATE EKG | | | | | + + + + + + | ATRIAL RATE | 340 | BPM | [facility] | | + + + + + + | QRS | 152 | ms | [facility] | | | DURATION | | | | | + + + + + + | Q-T | 436 | ms | [facility] | | | INTERVAL | | | | | + + + + + + | Q-T | 480 | ms | [facility] | | | INTERVAL | | | | | | (CORRECTED) | | | | | + + + + + + | QRS AXIS | -177 | degrees | [facility] | | + + + + + + | T AXIS | 65 | degrees | [facility] | | + + + + + + | INTERPRETAT | Ventricular-paced | | [facility] | | | ION TEXT | rhythmBiventricular | | | | | | pacemaker | | | | | | detectedAbnormal ECGWhen | | | | | | compared with ECG of | | | | | | 31-AUG-2018 10:22,Vent. | | | | | | rate has increased BY | | | | | | 3 BPMConfirmed by | | | | | | DANETTE CAICEDO MD ([id number]) | | | | | | on 10/27/2018 7:01:24 AM | | | | + + [...] + | Diagnosis | + + | Pneumonia - Primary Pneumonia, organism unspecified | + + | Pneumonia due to infectious organism, unspecified laterality, unspecified part of lung | + + | Sepsis, due to unspecified organism | + + | Elevated troponin Other abnormal blood chemistry | + + | Acute respiratory failure with hypoxia (HCC) Acute respiratory failure | + + | Clinical sepsis (HCC) | + + | ESRD (end stage renal disease) on dialysis ([facility]) End stage renal disease | + + | Ischemic cardiomyopathy Other specified forms of chronic ischemic heart disease | + + | ESRD (end stage renal disease) ([facility]) End stage renal disease | + + | Coronary artery disease, angina presence unspecified, unspecified vessel or lesion | | type, unspecified whether [place] or transplanted heart | + + | Non-insulin dependent type 2 diabetes mellitus ([facility]) Type II or unspecified type | | diabetes mellitus without mention of complication, not stated as uncontrolled | + + | Gout, unspecified cause, unspecified chronicity, unspecified site | + + | Hyperlipidemia, unspecified hyperlipidemia type | + + | EVITA (obstructive sleep apnea) Obstructive sleep apnea (adult) (pediatric) | + + | DM (diabetes mellitus), type 2 (HCC) Type II or unspecified type diabetes mellitus | | without mention of complication, not stated as uncontrolled | + + documented in this encounter Administered Medications + +--------+ +--------+------+------+ | Medication Order | MAR | Action | Dose | Rate | Site | | | Action | Date | | | | + +--------+ +--------+------+------+ | albuterol 2.5 mg/3 mL nebulizer | Given | 10/27/19 | 2.5 mg | | | | solution 2.5 mg 2.5 mg, | | 19 1:04 | | | | | Nebulization, RT Once, [facility] 10/26/18 | | PM PDT | | | | | at 1255, For 1 dose, RT will | | | | | | | administer., | | | | | | + +--------+ +--------+------+------+ +---+---+ | | | +---+---+ + +-------+ +-------+---+---+ | albuterol-ipratropium 2.5-0.5 | Given | 10/29/19 | 3 mLs | | | | mg/3 mL nebulizer solution 3 mL | | 19 1:05 | | | | | 3 mL, Nebulization, 4 TIMES | | PM PDT | | | | | DAILY, First dose on [facility] 10/26/18 | | | | | | | at 1745 | | | | | | + +-------+ +-------+---+---+ +-------+ +-------+---+---+ | Given | 10/29/19 | 3 mLs | | | | | 19 8:23 | | | | | | AM PDT | | | | +-------+ +-------+---+---+ | Given | 10/28/19 | 3 mLs | | | | | 19 9:12 | | | | | | PM PDT | | | | +-------+ +-------+---+---+ +---+---+ | | | +---+---+ + +-------+ +-------+---+---+ | albuterol-ipratropium 2.5-0.5 | Given | 11/02/19 | 3 mLs | | | | mg/3 mL nebulizer solution 3 mL | | 19 10:00 | | | | | 3 mL, Nebulization, 3 TIMES | | AM PDT | | | | | DAILY, First dose (after last | | | | | | | modification) on [facility] 10/28/18 at | | | | | | | 2100 | | | | | | + +-------+ +-------+---+---+ +-------+ +-------+---+---+ | Given | 11/01/19 | 3 mLs | | | | | 19 8:49 | | | | | | PM PDT | | | | +-------+ +-------+---+---+ | Given | 11/01/19 | 3 mLs | | | | | 19 3:55 | | | | | | PM PDT | | | | +-------+ +-------+---+---+ +---+---+ | | | +---+---+ + +-------+ +--------+---+---+ | allopurinol (ZYLOPRIM) tablet | Given | 11/02/19 | 100 mg | | | | 100 mg 100 mg, Oral, DAILY, | | 19 8:55 | | | | | First dose on [facility] 10/26/18 at 1715 | | AM PDT | | | | + +-------+ +--------+---+---+ +-------+ +--------+---+---+ | Given | 11/01/19 | 100 mg | | | | | 19 9:47 | | | | | | AM PDT | | | | +-------+ +--------+---+---+ | Given | 10/30/19 | 100 mg | | | | | 19 10:10 | | | | | | AM PDT | | | | +-------+ +--------+---+---+ +---+---+ | | | +---+---+ + +-------+ +------+---+---+ | alteplase (CATHFLO ACTIVASE) | Given | 10/28/19 | 2 mg | | | | injection 2 mg 2 mg, | | 19 11:04 | | | | | Intracatheter, ONCE, Tue10/27/18 | | PM PDT | | | | | at 2245, For 1 dose, Alteplase | | | | | | | both venous and arterial lines, | | | | | | + +-------+ +------+---+---+ +---+---+ | | | +---+---+ + +-------+ +------+---+---+ | alteplase (CATHFLO ACTIVASE) | Given | 10/29/19 | 2 mg | | | | injection 2 mg 2 mg, | | 19 12:46 | | | | | Intracatheter, ONCE, 10/28/18 | | AM PDT | | | | | at 0030, For 1 dose | | | | | | + +-------+ +------+---+---+ +---+---+ | | | +---+---+ + +-------+ +-------+---+---+ | aminophylline injection 75 mg | Given | 10/31/19 | 75 mg | | | | 75 mg, Intravenous, ONCE PRN, | | 19 8:22 | | | | | protocol, Starting 10/30/18 at | | AM PDT | | | | | 0821, For 1 dose, Nuclear | | | | | | | Medicine | | | | | | + +-------+ +-------+---+---+ +---+---+ | | | +---+---+ + +-------+ +-------+---+---+ | aspirin EC tablet 81 mg 81 mg, | Given | 11/02/19 | 81 mg | | | | Oral, DAILY, First dose on Tue | | 19 8:55 | | | | | 10/26/18 at 1715 | | AM PDT | | | | + +-------+ +-------+---+---+ +-------+ +-------+---+---+ | Given | 11/01/19 | 81 mg | | | | | 19 9:47 | | | | | | AM PDT | | | | +-------+ +-------+---+---+ | Given | 10/30/19 | 81 mg | | | | | 19 10:10 | | | | | | AM PDT | | | | +-------+ +-------+---+---+ +---+---+ | | | +---+---+ + +-------+ +-------+---+---+ | atorvaSTATin (LIPITOR) tablet | Given | 11/01/19 | 40 mg | | | | 40 mg 40 mg, Oral, NIGHTLY, | | 19 9:46 | | | | | First dose on Tue10/26/18 at 2100 | | PM PDT | | | | + +-------+ +-------+---+---+ +-------+ +-------+---+---+ | Given | 10/31/19 | 40 mg | | | | | 19 8:54 | | | | | | PM PDT | | | | +-------+ +-------+---+---+ | Given | 10/30/19 | 40 mg | | | | | 19 8:00 | | | | | | PM PDT | | | | +-------+ +-------+---+---+ +---+---+ | | | +---+---+ + +---------+ +--------+-------+---+ | azithromycin (ZITHROMAX) 500 mg | New Bag | 10/27/19 | 500 mg | 255 | | | in sodium chloride 0.9% 250 mL | | 19 3:05 | | mL/hr | | | IVPB 500 mg, Intravenous, | | PM PDT | | | | | Administer over 1 Hours, ONCE, | | | | | | | [facility] 10/26/18 at 1405, For 1 dose, | | | | | | | Keep in refrigerator., | | | | | | | Indications: Pneumonia | | | | | | + +---------+ +--------+-------+---+ +---+---+ | | | +---+---+ + +---------+ +-----+-------+---+ | cefTRIAXone (ROCEPHIN) 1 g in | New Bag | 10/27/19 | 1 g | 100 | | | sodium chloride 0.9% 50 mL IVPB | | 19 2:10 | | mL/hr | | | 1 g, Intravenous, Administer over | | PM PDT | | | | | 30 Minutes, ONCE, [facility] 10/26/18 at | | | | | | | 1405, For 1 dose, Activate system | | | | | | | and mix before use., | | | | | | | Indications: Pneumonia | | | | | | + +---------+ +-----+-------+---+ + +---+ | | | + +---+ | dextrose 50% injection 12.5 g | | | 12.5 g, Intravenous, PRN, Low | | | Blood Sugar, Starting [facility] 10/26/18 | | | at 1657 | | + +---+ | | | + +---+ + +-------+ + +--------+---+ | dipyridamole (PERSANTINE) 60mg | Given | 10/31/19 | 14.9952 | 599.8 | | | in 40 mL NS syringe 0.142 | | 19 8:45 | mg/min | mL/hr | | | mg/kg/min | | AM PDT | | | | | 105.6 kg (599.808 mL/hr, rounded | | | | | | | to 599.8 mL/hr), Intravenous, | | | | | | | Administer over 4 Minutes, ONCE, | | | | | | | 10/30/18 at 0845, For 1 dose, | | | | | | | Nuclear Medicine | | | | | | + +-------+ + +--------+---+ +---+---+ | | | +---+---+ + +---------+ +--------+-------+---+ | doxycycline (VIBRAMYCIN) 100 mg | New Bag | 11/01/19 | 100 mg | 100 | | | in sodium chloride 0.9% 100 mL | | 19 9:47 | | mL/hr | | | IVPB 100 mg, Intravenous, | | AM PDT | | | | | Administer over 1 Hours, EVERY 12 | | | | | | | HOURS (2 times per day), First | | | | | | | dose on Tue10/30/18 at 0900, | | | | | | | Activate system and mix before | | | | | | | use., Indications: Community | | | | | | | Acquired Pneumonia | | | | | | + +---------+ +--------+-------+---+ +---------+ +--------+-------+---+ | New Bag | 10/31/19 | 100 mg | 100 | | | | 19 10:52 | | mL/hr | | | | PM PDT | | | | +---------+ +--------+-------+---+ | New Bag | 10/31/19 | 100 mg | 100 | | | | 19 8:01 | | mL/hr | | | | AM PDT | | | | +---------+ +--------+-------+---+ +---+---+ | | | +---+---+ + +-------+ +--------+---+---+ | doxycycline (VIBRAMYCIN) tablet | Given | 11/02/19 | 100 mg | | | | 100 mg 100 mg, Oral, 2 TIMES | | 19 8:55 | | | | | DAILY, First dose on 4/9/19 | | AM PDT | | | | | at 2100, May take with food to | | | | | | | avoid GI upset. Administer with | | | | | | | at least 8 ounces of water and | | | | | | | have patient sit up for at least | | | | | | | 30 minutes., Indications: | | | | | | | Community Acquired Pneumonia | | | | | | + +-------+ +--------+---+---+ +-------+ +--------+---+---+ | Given | 11/01/19 | 100 mg | | | | | 19 9:46 | | | | | | PM PDT | | | | +-------+ +--------+---+---+ +---+---+ | | | +---+---+ + +-------+ +--------+---+---+ | furosemide (LASIX) tablet 160 | Given | 10/27/19 | 160 mg | | | | mg 160 mg, Oral, 2 TIMES DAILY | | 19 6:14 | | | | | 0800 & 1600, First dose on [facility] | | PM PDT | | | | | 10/26/18 at 1715 | | | | | | + +-------+ +--------+---+---+ +---+---+ | | | +---+---+ + +-------+ +--------+---+---+ | heparin 1,000 units/mL | Given | 10/28/19 | 3,600 | | | | injection 1,500-6,000 Units | | 19 9:52 | Units | | | | 1,500-6,000 Units, Intracatheter, | | PM PDT | | | | | PRN, catheter care, Starting Fri | | | | | | | 10/27/18 at 1728, Instill in | | | | | | | catheter, after each dialysis. | | | | | | | Dispense quantity sufficient to | | | | | | | fill both lumens of catheter., | | | | | | | Dialysis | | | | | | + +-------+ +--------+---+---+ +---+---+ | | | +---+---+ + +-------+ +--------+---+---+ | heparin 1,000 units/mL | Given | 10/30/19 | 1,800 | | | | injection 1,500-6,000 Units | | 19 1:22 | Units | | | | 1,500-6,000 Units, Intracatheter, | | PM PDT | | | | | PRN, catheter care, Starting Sun | | | | | | | 10/29/18 at 0704, Instill in | | | | | | | catheter, after each dialysis. | | | | | | | Dispense quantity sufficient to | | | | | | | fill both lumens of catheter., | | | | | | | Dialysis | | | | | | + +-------+ +--------+---+---+ +---+---+ | | | +---+---+ + +-------+ +--------+---+---+ | heparin 1,000 units/mL | Given | 10/31/19 | 1,800 | | | | injection 1,500-6,000 Units | | 19 2:54 | Units | | | | 1,500-6,000 Units, Intracatheter, | | PM PDT | | | | | PRN, catheter care, Starting Mon | | | | | | | 10/30/18 at 1018, Instill in | | | | | | | catheter, after each dialysis. | | | | | | | Dispense quantity sufficient to | | | | | | | fill both lumens of catheter., | | | | | | | Dialysis | | | | | | + +-------+ +--------+---+---+ +---+---+ | | | +---+---+ + +-------+ +-------+---+---+ | heparin 1,000 units/mL | Given | 10/28/19 | 500 | | | | injection 500 Units 500 Units, | | 19 6:02 | Units | | | | Intravenous, WITH EACH DIALYSIS, | | PM PDT | | | | | Starting 10/27/18 at 1728, | | | | | | | Dialysis | | | | | | + +-------+ +-------+---+---+ +---+---+ | | | +---+---+ + +-------+ +-------+---+---+ | heparin 1,000 units/mL | Given | 10/31/19 | 500 | | | | injection 500 Units 500 Units, | | 19 10:49 | Units | | | | Intravenous, WITH EACH DIALYSIS, | | AM PDT | | | | | Starting 10/30/18 at 1018, | | | | | | | Dialysis | | | | | | + +-------+ +-------+---+---+ +---+---+ | | | +---+---+ + +-------+ +--------+---+ + | heparin 5,000 units/mL | Given | 10/31/19 | 5,000 | | Abdomen- | | injection 5,000 Units 5,000 | | 19 8:54 | Units | | LLQ | | Units, Subcutaneous, EVERY 12 | | PM PDT | | | | | HOURS (2 times per day), First | | | | | | | dose on [facility] 10/26/18 at 2100 | | | | | | + +-------+ +--------+---+ + +-------+ +--------+---+ + | Given | 10/31/19 | 5,000 | | Abdomen- | | | 19 8:24 | Units | | RLQ | | | AM PDT | | | | +-------+ +--------+---+ + | Given | 10/30/19 | 5,000 | | Abdomen- | | | 19 8:00 | Units | | RUQ | | | PM PDT | | | | +-------+ +--------+---+ + +---+---+ | | | +---+---+ + +---------+ + +---------+---+ | heparin in half-normal saline | New Bag | 10/28/19 | 200 | 4 mL/hr | | | 50 units/mL infusion 200 | | 19 6:02 | Units/hr | | | | Units/hr (4 mL/hr), at 4 mL/hr, | | PM PDT | | | | | Intravenous, CONTINUOUS, Starting | | | | | | | 10/27/18 at 1745, Dialysis | | | | | | + +---------+ + +---------+---+ +---+---+ | | | +---+---+ + +---------+ + +---------+---+ | heparin in half-normal saline | New Bag | 10/30/19 | 200 | 4 mL/hr | | | 50 units/mL infusion 200 | | 19 8:24 | Units/hr | | | | Units/hr (4 mL/hr), at 4 mL/hr, | | AM PDT | | | | | Intravenous, CONTINUOUS, Starting | | | | | | | 10/29/18 at 0730, For 12 | | | | | | | hours, Dialysis | | | | | | + +---------+ + +---------+---+ +---+---+ | | | +---+---+ + +---------+ + +---------+---+ | heparin in half-normal saline | New Bag | 10/31/19 | 200 | 4 mL/hr | | | 50 units/mL infusion 200 | | 19 10:49 | Units/hr | | | | Units/hr (4 mL/hr), at 4 mL/hr, | | AM PDT | | | | | Intravenous, CONTINUOUS, Starting | | | | | | | 10/30/18 at 1045, Dialysis | | | | | | + +---------+ + +---------+---+ +---+---+ | | | +---+---+ + +-------+ +---------+---+ + | insulin lispro (humaLOG | Given | 11/01/19 | 1 Units | | Abdomen- | | KWIKPEN) injection (pen) 0-6 | | 19 5:46 | | | RLQ | | Units 0-6 Units, Subcutaneous, 4 | | PM PDT | | | | | TIMES DAILY WITH MEALS & | | | | | | | NIGHTLY, First dose on [facility] 10/26/18 | | | | | | | at 1715, CORRECTION SCALE: | | | | | | | Blood Glucose (BG) < 150: | | | | | | | None BG 150-200: DAY: 1 | | | | | | | units. NIGHT: 0 units BG | | | | | | | 201-250: DAY: 2 units. NIGHT: 1 | | | | | | | units BG 251-300: DAY: 3 units. | | | | | | | NIGHT: 2 units BG 301-350: | | | | | | | DAY: 4 units. NIGHT: 3 units | | | | | | | BG 351-400: DAY: 5 units. NIGHT: | | | | | | | 4 units BG > 400 : DAY: | | | | | | | 6 units. NIGHT: 5 units | | | | | | | AND CALL | | | | | | | PROVIDER Use DAY DOSE for doses | | | | | | | scheduled: AC, NPO, Daytime | | | | | | | 5260-1211 Use NIGHT DOSE for | | | | | | | doses scheduled: HS, 3AM, | | | | | | | Nighttime [id number], | | | | | | + +-------+ +---------+---+ + +-------+ +---------+---+ + | Given | 10/31/19 | 1 Units | | Abdomen- | | | 19 5:30 | | | RLQ | | | PM PDT | | | | +-------+ +---------+---+ + | Given | 10/30/19 | 1 Units | | Abdomen- | | | 19 8:00 | | | LLQ | | | PM PDT | | | | +-------+ +---------+---+ + +---+---+ | | | +---+---+ + +-------+ +--------+---+---+ | levoFLOXacin (LEVAQUIN) tablet | Given | 11/02/19 | 500 mg | | | | 500 mg 500 mg, Oral, EVERY OTHER | | 19 8:56 | | | | | DAY, First dose on Tue11/01/18 | | AM PDT | | | | | at 0900, Give 2 hours before or 2 | | | | | | | hours after antacids, iron, or | | | | | | | zinc., Indications: | | | | | | | Healthcare-Associated Pneumonia | | | | | | + +-------+ +--------+---+---+ +---+---+ | | | +---+---+ + +---------+ +--------+-------+---+ | levoFLOXacin in dextrose | New Bag | 10/31/19 | 750 mg | 100 | | | (LEVAQUIN) IVPB 750 mg 750 mg, | | 19 3:17 | | mL/hr | | | Intravenous, Administer over 90 | | PM PDT | | | | | Minutes, ONCE, Tue10/30/18 at | | | | | | | 0800, For 1 dose, Indications: | | | | | | | Community Acquired Pneumonia | | | | | | + +---------+ +--------+-------+---+ +---+---+ | | | +---+---+ + +-------+ +--------+---+---+ | melatonin tablet 1.5 mg 1.5 | Given | 10/31/19 | 1.5 mg | | | | mg, Oral, NIGHTLY PRN, Insomnia, | | 19 10:52 | | | | | Starting [facility] 10/26/18 at 1657 | | PM PDT | | | | + +-------+ +--------+---+---+ +-------+ +--------+---+---+ | Given | 10/31/19 | 1.5 mg | | | | | 19 1:13 | | | | | | AM PDT | | | | +-------+ +--------+---+---+ + +---+ | | | + +---+ | metoclopramide (REGLAN) 5 mg/mL | | | injection 5 mg 5 mg, | | | Intravenous, EVERY 4 HOURS PRN, | | | Nausea, Vomiting, Starting Mon | | | 10/30/18 at 0729, Use if | | | ondansetron and prochlorperazine | | | ineffective after 30 minutes or | | | not ordered Protect from light., | | + +---+ | | | + +---+ + + + +---------+-------+---+ | norepinephrine in saline | Rate/Dos | 10/29/19 | 1 | 3.8 | | | (LEVOPHED) 16 mcg/mL infusion | e Change | 19 3:34 | mcg/min | mL/hr | | | 1-30 mcg/min (3.75-112.5 mL/hr, | | AM PDT | | | | | rounded to 3.8-112.5 mL/hr), at | | | | | | | 3.8-112.5 mL/hr, Intravenous, | | | | | | | TITRATED, Starting 10/27/18 at | | | | | | | 0830, Titration Instruction: See | | | | | | | below, Goal: SBP greater than 90, | | | | | | | Initial dose: 3 mcg/min., | | | | | | | Increase rate by: 2 mcg/min every | | | | | | | 5 minutes., Decrease rate by: 2 | | | | | | | mcg/min every 5 minutes., *: | | | | | | | Titrate drug per order as | | | | | | | tolerated. Titration may vary | | | | | | | based on the patient | | | | | | | | | | | | | | s critical condition. | | | | | | + + + +---------+-------+---+ + + +---------+-------+---+ | Rate/Dose Change | 10/29/19 | 2 | 7.5 | | | | 19 2:35 | mcg/min | mL/hr | | | | AM PDT | | | | + + +---------+-------+---+ | Rate/Dose Change-Dual Sign | 10/29/19 | 3 | 11.3 | | | | 19 12:46 | mcg/min | mL/hr | | | | AM PDT | | | | + + +---------+-------+---+ +---+---+ | | | +---+---+ + +-------+ + +---+---+ | oxymetazoline (AFRIN) 0.05% | Given | 10/31/19 | 2 sprays | | | | nasal spray 2 spray 2 spray, | | 19 10:52 | | | | | Each Nare, ONCE, 10/30/18 at | | PM PDT | | | | | 2130, For 1 dose | | | | | | + +-------+ + +---+---+ +---+---+ | | | +---+---+ + +-------+ +-------+---+---+ | pantoprazole (PROTONIX) DR | Given | 11/02/19 | 40 mg | | | | tablet 40 mg 40 mg, Oral, DAILY | | 19 6:43 | | | | | BEFORE BREAKFAST, First dose on | | AM PDT | | | | | [facility] 10/26/18 at 1715, Indication: | | | | | | | GERD | | | | | | + +-------+ +-------+---+---+ +-------+ +-------+---+---+ | Given | 11/01/19 | 40 mg | | | | | 19 6:53 | | | | | | AM PDT | | | | +-------+ +-------+---+---+ | Given | 10/31/19 | 40 mg | | | | | 19 6:34 | | | | | | AM PDT | | | | +-------+ +-------+---+---+ +---+---+ | | | +---+---+ + +-------+ +---------+---+---+ | perflutren lipid microspheres | Given | 11/01/19 | 1.5 mLs | | | | (DEFINITY) injection 2 mL 2 mL, | | 19 9:03 | | | | | Intravenous, ONCE PRN, Other, | | AM PDT | | | | | Starting 10/31/18 at 0840, For | | | | | | | 1 dose, Echo | | | | | | + +-------+ +---------+---+---+ + +---+ | | | + +---+ | phenylephrine (KELSEY-SYNEPHRINE) | | | 0.25% nasal spray 1-2 spray 1-2 | | | spray, Each Nare, EVERY 4 HOURS | | | PRN, Congestion, Starting Mon | | | 10/30/18 at 0753 | | + +---+ | | | + +---+ + +---------+ +---------+-------+---+ | piperacillin-tazobactam (ZOSYN) | New Bag | 10/27/19 | 3.375 g | 200 | | | 3.375 g in sodium chloride 0.9% | | 19 7:39 | | mL/hr | | | 100 mL IVPB 3.375 g, | | PM PDT | | | | | Intravenous, Administer over 0.5 | | | | | | | Hours, ONCE, [facility] 10/26/18 at 1930, | | | | | | | For 1 dose, Extended-Infusion | | | | | | | Zosyn Protocol: infuse bolus over | | | | | | | 30 minutes, followed in 4 hours | | | | | | | by maintenance dosing. Activate | | | | | | | system and mix before use., | | | | | | | Indications: | | | | | | | Healthcare-Associated Pneumonia | | | | | | + +---------+ +---------+-------+---+ +---+---+ | | | +---+---+ + +---------+ +---------+ +---+ | piperacillin-tazobactam (ZOSYN) | New Bag | 10/30/19 | 3.375 g | 25 mL/hr | | | 3.375 g in sodium chloride 0.9% | | 19 11:54 | | | | | 100 mL IVPB 3.375 g, | | PM PDT | | | | | Intravenous, Administer over 4 | | | | | | | Hours, EVERY 12 HOURS INTERVAL, | | | | | | | First dose on [facility] 10/26/18 at 2330, | | | | | | | Extended-Infusion Zosyn | | | | | | | Protocol: infuse over 4 hours | | | | | | | when maintenance dose has a | | | | | | | frequency of Q8H (or Q12H for | | | | | | | renal dose adjustment). Activate | | | | | | | system and mix before use., | | | | | | | Indications: | | | | | | | Healthcare-Associated Pneumonia | | | | | | + +---------+ +---------+ +---+ +---------+ +---------+ +---+ | New Bag | 10/30/19 | 3.375 g | 25 mL/hr | | | | 19 12:36 | | | | | | PM PDT | | | | +---------+ +---------+ +---+ | New Bag | 10/29/19 | 3.375 g | 25 mL/hr | | | | 19 11:45 | | | | | | PM PDT | | | | +---------+ +---------+ +---+ +---+---+ | | | +---+---+ + +---------+ +---------+-------+---+ | sodium chloride 0.9% (NS) bolus | New Bag | 10/28/19 | 250 mLs | 250 | | | 250 mL 250 mL, Intravenous, | | 19 6:30 | | mL/hr | | | Administer over 1 Hours, ONCE, | | AM PDT | | | | | 10/27/18 at 0645, For 1 dose | | | | | | + +---------+ +---------+-------+---+ +---+---+ | | | +---+---+ + +---------+ +---------+-------+---+ | sodium chloride 0.9% (NS) bolus | New Bag | 10/27/19 | 500 mLs | 500 | | | 500 mL 500 mL, Intravenous, | | 19 2:10 | | mL/hr | | | Administer over 1 Hours, ONCE, | | PM PDT | | | | | [facility] 10/26/18 at 1400, For 1 dose | | | | | | + +---------+ +---------+-------+---+ +---+---+ | | | +---+---+ + +-------+ + +---+---+ | technetium TC-99M sestamibi | Given | 10/31/19 | 10.87 | | | | (CARDIOLITE) injection 10.87 | | 19 8:22 | millicur | | | | millicurie 10.87 millicurie, | | AM PDT | ies | | | | Intravenous, ONCE PRN, Other, | | | | | | | Starting 10/30/18 at 0822, For | | | | | | | 1 dose, Nuclear Medicine | | | | | | + +-------+ + +---+---+ +---+---+ | | | +---+---+ + +-------+ + +---+---+ | technetium TC-99M sestamibi | Given | 10/31/19 | 35.3 | | | | (CARDIOLITE) injection 35.3 | | 19 11:20 | millicur | | | | millicurie 35.3 millicurie, | | AM PDT | ies | | | | Intravenous, ONCE PRN, Other, | | | | | | | Starting 10/30/18 at 1120, For | | | | | | | 1 dose, Nuclear Medicine | | | | | | + +-------+ + +---+---+ +---+---+ | | | +---+---+ + +---------+ + +-------+---+ | vancomycin 1,250 mg in sodium | New Bag | 10/27/19 | 1,250 mg | 175 | | | chloride 0.9% 250 mL IVPB 1,250 | | 19 9:11 | | mL/hr | | | mg, Intravenous, Administer over | | PM PDT | | | | | 90 Minutes, ONCE, [facility] 10/26/18 at | | | | | | | 2030, For 1 dose, Keep in | | | | | | | refrigerator., Indications: | | | | | | | Healthcare-Associated Pneumonia | | | | | | + +---------+ + +-------+---+ +---+---+ | | | +---+---+ + +---------+ +--------+-------+---+ | vancomycin 500 mg in sodium | New Bag | 10/30/19 | 500 mg | 100 | | | chloride 0.9% 100 mL IVPB 500 | | 19 6:27 | | mL/hr | | | mg, Intravenous, Administer over | | AM PDT | | | | | 60 Minutes, EVERY 12 HOURS | | | | | | | INTERVAL, First dose on Sat | | | | | | | 10/28/18 at 0615, Activate system | | | | | | | and mix before use., Indications: | | | | | | | Healthcare-Associated Pneumonia | | | | | | + +---------+ +--------+-------+---+ +---------+ +--------+-------+---+ | New Bag | 10/29/19 | 500 mg | 100 | | | | 19 5:50 | | mL/hr | | | | PM PDT | | | | +---------+ +--------+-------+---+ | New Bag | 10/29/19 | 500 mg | 100 | | | | 19 6:06 | | mL/hr | | | | AM PDT | | | | +---------+ +--------+-------+---+ +---+---+ | | | +---+---+ documented in this encounter Additional Health Concerns + + + + | Infection | Noted Time | Resolved Time | + + + + | Methicillin-resistant Staphylococcus aureus | 10/30/2018 9:33 AM | | | | PDT | | + + + + documented as of this encounter
--- OUTSIDE RECORDS SUMMARY | ~2019-07-14 | XMS | Encounter Summary ---
Demographics + + + | Address | [address] | | | [place] [address] | + + + | Home Phone | | + + + | Preferred Language | Unknown | + + + | Marital Status | | + + + | Sikh Affiliation | 1041 | + + + | Race | Unknown | + + + | Ethnic Group | Unknown | + + + Author + + + | Author | [facility] | | | and [place] | + + + | Organization | [facility] | | | and [place] | + + + | Address | Unknown | + + + | Phone | Unavailable | + + + Support + + + + + | Name | Relationship | Address | Phone | + + + + + | Lula Kerr | ECON | [address] | | | | | [place] | | | | | [address] | | + + + + + Care Team Providers + +------+ + | Care 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 | Role | Phone | + +------+ + | Gregory Drummond MD | PCP | | + +------+ + Encounter Details +--------+ + + + + | Date | Type | Department | Care Team | Description | +--------+ + + + + | 02/12/ | Hospital | [facility] | Amilcar Hampton | Acute kidney injury | | 2019 | Encounter | [facility] | MD Omar, FACS [address] | superimposed on | | | | [address] | [place]ONNE[place] | chronic kidney | | | | [place], [place] | [place] [address] | disease (HCC) | | | | [address] | [phone] | | | | | [phone] | | | +--------+ + + + [...] + + + | Blood Pressure | 108/52 | 09/05/2018 6:45 PM | | | | | PST | | + + + + + | Pulse | 72 | 09/05/2018 6:45 PM | | | | | PST | | + + + + + | Temperature | 36.7 C (98.1 F) | 09/05/2018 6:15 PM | | | | | PST | | + + + + + | Respiratory Rate | 18 | 09/05/2018 6:45 PM | | | | | PST | | + + + + + | Oxygen Saturation | 94% | 09/05/2018 6:45 PM | | | | | PST | | + + + + + | Inhaled Oxygen | - | - | | | Concentration | | | | + + + + + | Weight | 107 kg (236 lb) | 09/05/2018 11:01 AM | | | | | PST | | + + + + + | Height | 170.2 cm (5' 7") | 09/05/2018 11:01 AM | | | | | PST | | + + + + + | Body Mass Index | 36.96 | 09/05/2018 11:01 AM | | | | | PST | | + + + + + documented in this encounter Discharge Instructions Instructions Lyn Villanueva RN - 09/05/2018[facility] POST-OP INSTRUCTIONS: Arterio-Venous Fistula 1. Keep the operative arm clean and dry for 24 hours. 2. Remove bandage in 3-4 days. ( May replace if any wound drainage). 3. NO BP, IV or needles in the arm with the fistula 4. It is helpful to exercise the hand with a squeeze ball. 5. Resume normal activities 6. Resume normal diet. 7. Please call Dr. Hampton's office today or tomorrow for a followup appointment in 1-2 weeks . Recovery After Procedural Sedation (Adult) You have been given medicine by vein to make you sleep during your procedure. This may have included both a pain medicine and sleeping medicine. Most of the effects have worn off. But you may still have some drowsiness for the next 6 to 8 hours. Home care Follow these guidelines when you get home: For the next 8 hours, you should be watched by a responsible adult. This person should m leonor sure your condition is not getting worse. Don't drink any alcoholfor the next [address], operate dangerous machinery,make important business or personal decisions , or sign legal documentsduring the next 24 hours. Note: Your healthcare provider may tell you not to take any medicine by mouth for pain or s leep in the next 4 hours. These medicines may react with the medicines you were given in the hospital. This could cause a much stronger response than usual. Follow-up care Follow up with your healthcare provider if you are not alert and back to your usual level o f activity within 12 hours. When to seek medical advice Call your healthcare provider right away if any of these occur: Drowsiness gets worse Weakness or dizziness gets worse Repeated vomiting You can't be awakened Date Last Reviewed: 05/11/201619994991-4702 [employer] [address] [place] [address]. All righ ts reserved. This information is [...] tablet by | 30 | 0 | 12/15/20 | | | (AMARYL) 2 MG tablet [...] + + + +---------+ + + | bisacodyl | Place 10 mg rectally | | 0 | | | | (DULCOLAX) 10 mg | Daily as needed for | | | | 9 | | suppository | Constipation. | | | | | [...] | Visit | | DO Rolan [address] | | | | | | [address] | | | | | | [place] | | | | | | [address] | | | | | | | | +--------+ + + + + | 09/25/ | Office | Cardiology | Sheldon Spence | | | 2019 | Visit | | MD [address] | | | | | | [address] | | | | | | [place] | | | | | | [address] | | | | | | | [...] [place] | | | | | | [address] | | | | | | | | +--------+ + + + + documented as of this encounter Procedures + +--------+ + + + | Procedure Name | Priori | Date/Time | Associated Diagnosis | Comments | | | ty | | | | + +--------+ + + + | INSERTION AV FISTULA | | 09/05/2018 | ESRD (end stage | | | | | 4:27 PM | renal disease) (HCC) | | | | | PST | (N18.6) | | + +--------+ + + + +---+--------+ | | Case | | | Notes | | | DrAnastacia | | | Field, | | | Case | | | 2 | +---+--------+ + +--------+ +---+ + | BASIC METABOLIC | Routin | 09/05/2018 | | Results for this | | PANEL | e | 12:27 PM | | procedure are in the | | | | PST | | results section. | + +--------+ +---+ + documented in this encounter Results Basic Metabolic Panel (09/05/2018 12:27 PM PST) + + + + + + | Component | Value | Ref Range | Performed | Pathologist | | | | | At | Signature | + + + + + + | Na | 135 (L) | 136 - 149 | [facility] [...] + + + + | Cl | 94 (L) | 98 - 109 mmol/L | [facility] | [facility] | | | | | [facility] | | + + + + + + | CO2 | 25 | 24 - 31 mmol/L | [facility] - | | | | | | [facility] | | + + + + + + | Anion Gap | 16 | 3 - 16 mmol/L | [facility] | [facility] | | | | | | [facility] | | + + + + + + | Glucose | 85 | 70 - 109 mg/dL | [facility] | [facility] | | | | | | [facility] | | + + + + + + | BUN | 37 (H) | 7 - 18 mg/dL | [facility] | | [facility] | | [facility] - | | | | | | [facility]ATORY | | + + + + + + | Creatinine | 3.22 (H) | 0.60 - 1.30 | [facility] | | | | | mg/dL | [facility] | [facility] | | | | [facility] | | | | | | [facility] - | | | | | | LABORATORY | | + + + + + + | eGFR if not | 19 (L)Comment: | >=60 | [facility] | | | | [facility] | mL/min/1.73m2 | [facility] | | | [facility] | RATE,ESTIMATED | | MEDICAL | | | | mL/min/[id number] than | | CENTER - | | [...] + + | Calcium | 9.3 | 8.3 - 10.5 | [facility] | | | | | mg/dL | [facility] | | [facility] | [facility] | | | | | | [facility] - | | | | | | LABORATORY | | + + + + + + | BUN/Creatin | 11.5 | | [facility] | | | ine Ratio | | | [facility] | | | [...] | [address] | [place] | [phone] | | [facility] | | [address] | | | - LABORATORY | | | | + + + + + documented in this encounter Visit Diagnoses + + | Diagnosis | + + | Acute kidney injury superimposed on chronic kidney disease (HCC) | + + | DM (diabetes mellitus), type 2 ([facility]) Type II or unspecified type diabetes mellitus | | without mention of complication, not stated as uncontrolled | + + | Dialysis patient ([facility]) Renal dialysis status | + + | VT (ventricular tachycardia) ([facility]) Paroxysmal ventricular tachycardia | + + | Persistent atrial fibrillation Atrial fibrillation | + + documented in this encounter Administered Medications + +--------+---------+------+------+------+ | Medication Order | MAR | Action | Dose | Rate | Site | | | Action | Date | | | | + +--------+---------+------+------+------+ + +---+ | albuterol-ipratropium 2.5-0.5 | | | mg/3 mL nebulizer solution 3 mL | | | 3 mL, Nebulization, ONCE PRN, | | | Wheezing, Shortness of Breath, | | | Starting [facility] 09/05/18 at 1819, For | | | 1 dose, Recovery/Phase I | | + +---+ | | | + +---+ | dexamethasone (DECADRON) 4 | | | mg/mL injection 4 mg 4 mg, | | | Intravenous, ONCE PRN, Nausea, | | | Starting [facility] 09/05/18 at 1819, For | | | 1 dose, Only administer to | | | patients without a diagnosis of | | | diabetes., Recovery/Phase I | | + +---+ | | | + +---+ | ePHEDrine 50 mg/mL injection | | | 5-10 mg 5-10 mg, Intravenous, | | | EVERY 5 MIN PRN, if SBP <90 or | | | HR under 40, Starting e 09/05/18 | | | at 1819, Hold if HR > 100. Hold | | | for SBP >140. Maximum total dose | | | 20mg., Recovery/Phase I | | + +---+ | | | + +---+ | fentaNYL (PF) injection 25-50 | | | mcg 25-50 mcg, Intravenous, | | | EVERY 5 MIN PRN, Pain, Starting | | | Tue09/05/18 at 1819, Maximum | | | total dose 250 mcg. PACU IV | | | Narcotic Priority: Only use | | | fentanyl for immediate post-op | | | pain (one dose) or breakthrough | | | pain when any other IV narcotics | | | ordered have been ineffective (if | | | ordered). If both morphine and | | | hydromorphone are ordered, use | | | morphine first, and use | | | hydromorphone if morphine | | | ineffective., Recovery/Phase I | | + +---+ | | | + +---+ | HYDROmorphone (DILAUDID) | | | injection 0.25-0.5 mg 0.25-0.5 | | | mg, Intravenous, EVERY 5 MIN PRN, | | | Pain, Starting Tue09/05/18 at | | | 1819, Maximum total dose 2 mg. | | | PACU IV Narcotic Priority: Only | | | use fentanyl for immediate | | | post-op pain (one dose) or | | | breakthrough pain when any other | | | IV narcotics ordered have been | | | ineffective (if ordered). If | | | both morphine and hydromorphone | | | are ordered, use morphine first, | | | and use hydromorphone if morphine | | | ineffective., Recovery/Phase I | | + +---+ | | | + +---+ | labetalol (TRANDATE) 5 mg/mL | | | injection 5 mg 5 mg, | | | Intravenous, EVERY 5 MIN PRN, For | | | SBP > 180, DBP > 100, Starting | | | Tue09/05/18 at 1819, Maximum | | | total dose 100mg. Notify | | | anesthesia if patient requires | | | more than 50mg. PARAMETERS KEEP: | | | SBP< 180, SBP >110 HR<110, HR>55, | | | Recovery/Phase I | | + +---+ | | | + +---+ | midazolam (VERSED) 1 mg/mL | | | injection 0.5-1 mg 0.5-1 mg, | | | Intravenous, EVERY 5 MIN PRN, | | | Anxiety, Anxiety or agitation. | | | Please do not give unless pain | | | scores are under 7-of-10., | | | Starting 09/05/18 at 1819, | | | Maximum total dose 2 mg., | | | Recovery/Phase I | | + +---+ | | | + +---+ | ondansetron (ZOFRAN ODT) | | | disintegrating tablet 4 mg 4 mg, | | | Oral, EVERY 6 HOURS PRN, Nausea, | | | Vomiting, Starting 09/05/18 | | | at 1820, First line agent, | | | Post-op/Phase II | | + +---+ | | | + +---+ | ondansetron (ZOFRAN) injection | | | 4 mg 4 mg, Intravenous, ONCE | | | PRN, Nausea, Starting 09/05/18 | | | at 1819, For 1 dose, | | | Recovery/Phase I | | + +---+ | | | + +---+ | ondansetron (ZOFRAN) injection | | | 4 mg 4 mg, Intravenous, EVERY 6 | | | HOURS PRN, Nausea, Vomiting, | | | Starting 09/05/18 at 1820, | | | First line agent. Use PO option | | | unless NPO status or unable to | | | tolerate., Post-op/Phase II | | + +---+ | | | + +---+ | sodium chloride 0.9% (NS) | | | infusion at 10-100 mL/hr, | | | Intravenous, CONTINUOUS, Starting | | | 09/05/18 at 1845, TKO. Use | | | this instead of LR if both are | | | ordered., Pre-op | | + +---+ | | | + +---+ documented in this encounter
--- OUTSIDE RECORDS SUMMARY | ~2019-07-14 | XMS | Encounter Summary ---
Demographics + + + | Address | [address] | | | [place] [address] | + + + | Home Phone | | + + + | Preferred Language | Unknown | + + + | Marital Status | | + + + | Mormon Affiliation | [id number] | + + + | Race | Unknown | + + + | Ethnic Group | Unknown | + + + Author + + + | Author | [facility] | | | and [place] | + + + | Organization | [facility] | | | and [place] | + + + | Address | Unknown | + + + | Phone | Unavailable | + + + Support + + + + + | Name | Relationship | Address | Phone | + + + + + | Lula Kerr | ECON | [address] | | | | | [place] | | | | | [address] | | + + + + + Care Team Providers + +------+ + | Care Early Childhood Coordinator Name | Role | Phone | + +------+ + | Gregory Drummond MD | PCP | | + +------+ + Reason for Visit + + + | Reason | Comments | + + + | Pre-op Exam | Biopsy of paraspinous mass at T6-7 | + + + Evaluate & Treat (Emergency) + + + + + + + | Status | Reason | Specialty | Diagnoses / | Referred By | Referred To | | | | | Procedures | Contact | Contact | + + + + + + + | Authorized | Specialty | Neurosurgery | Diagnoses | Jaylan, | Naga, | | | Services | | Paraspinal | Maty Gongora, | Paul Beckham MD | | | Required | | mass | DO [address] | | | | | Procedures | [place], [place] | [address] | | | | | DOS 07/06/19 | [address] [place] | [address] [place] | | | | | | [place], [place] | [place], [place] | | | | | | [address] | [address] Phone: | | | | | | Phone: | [phone] | | | | | | [phone] | Fax: | | | | | | Fax: | [phone] | | | | | | [phone] | | + + + + + + + Encounter Details +--------+---------+ + + + | Date | Type | Department | Care Team | Description | +--------+---------+ + + + | 07/06/ | Office | [facility] | Paul Nielson | Mass of spine | | 2019 | Visit | [place] [address] | MD [place] [address] | (Primary Dx) | | | | [address] | [address] [place] | | | | | [place] | [place] [address] | | | | | [address] | [phone] | | | | | [phone] | | | +--------+---------+ + + + Social History [...] + + + documented in this encounter Patient Instructions Patient Instructions Ashley Og Drill Grinder - 07/06/2019 11:30 AM PST - Explained and reviewed the procedure that you are going to have on 07/12/2019. - Use your walker with every step and everyday doctors orders - Let pain be your guide. If you are doing an activity that starts causing you pain, back off and ease back into it slowly. We don't want you taking any risks that do not need to be taken. - Your check in time for your procedure is at 3[facility] signed by Ashley Og Drill Grinder at 07/06/2019 12:49 PM PST documented in this encounter Progress Notes Paul Nielson MD - 07/06/2019 11:30 AM PST Paul Nielson MD [address] [place] [address], [address] [place] [address] FAX: [phone] NEUROSURGERY HISTORY AND PHYSICAL EXAMINATION CHIEF COMPLAINT: Chief Complaint Patient presents with Pre-op Exam Biopsy of paraspinous mass at T6-7 HISTORY OF PRESENT ILLNESS: David Kerr is a 73 y.o. 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 He complaints of middle back pain th at travels to the bottom of his ribs that began. He states that he is unable to lay flat on his back with out causing pain. He will become short of breath and have back muscle spasms w hen getting up from a lay down position. The back symptoms have been stable. He rates the back pain as severe. The back symptoms a re intermittent and daily. He describes the back pain as sharp, crushing and aching. His symptoms improve with changing position. His symptoms worsen with nothing. He does not report any change in bowel or bladder function recently. He has tried NSAIDS and Muscle relaxer's. He is not currently taking any pain medications. PAST MEDICAL HISTORY: Past Medical History: Diagnosis Date Acute metabolic encephalopathy AICD (automatic cardioverter/defibrillator) present 04/03/2010 A: Biventricular ICD is functioning appropriately. P: Echo in one year with ICD follow up . Overview: Overview: A: Biventricular ICD is functioning appropriately. P: Echo in one year with ICD follow up. Arteriosclerotic cardiovascular disease Arthralgia Atrial fibrillation (HCC) permanent - not on AC due to GI bleed 2015 - declined HENRI occlusion Cardiomyopathy (HCC) 02/21/2017 Last Assessment & Plan: A: Ischemic cardiomyopathy. NYHA Class III. P: 1. Echo before his next visit with me. 2. Continue current meds. If persistent hypertension, will try to i ncrease lisinopril. Overview: Last Assessment & Plan: A: Ischemic cardiomyopathy. NYHA C lass III. P: 1. Echo before his next visit with me. 2. Continue current meds. If persist ent hypertension, will try to incr Cellulitis of left lower extremity Chest pain Chest pain Claustrophobia Complete heart block (HCC) 01/28 Congestive heart failure (HCC) Coronary artery disease s/p CABG x4 12/01 Diabetes mellitus type II, non insulin dependent (HCC) End stage renal disease (HCC) on HD - right IJ PermaCath - right UE AVF Gastrointestinal hemorrhage associated with gastric ulcer 08/20/2016 Gout Hemodialysis patient ([facility]) tue Hypercholesteremia Hyperlipidemia 10/19/2018 Hypertension Ischemic cardiomyopathy Left arm pain Left bundle branch block (LBBB) 11/18/2017 Obesity Old myocardial infarction 1998 Persistent atrial fibrillation 08/20/2016 Last Assessment & Plan: A: Persistent afib. [id number] Risk Score: 5 - 7.2% Estimated Stroke Risk Per Year HAS-BLED Score for Major Bleeding Risk: 2 - Risk: Study One - 4.1%; St udy Two - 1.88 bleeds per 100 patient years P: Unable to tolerate anticoagulation. ASA only . Overview: Last Assessment & Plan: A: Persistent afib. [id number] Risk Score: 5 - 7 .2% Estimated Stroke Risk Per Year Pneumonia Pneumonia due to infectious organism Pulmonary hypertension (HCC) Severe sepsis with septic shock (HCC) Sleep apnea not using CPAP Status post internal cardiac defibrillator procedure s/p BS Biv/ICD 01/01 - gen change 01/09 Status post placement of cardiac pacemaker s/p DC pacemaker 01/28 - RA/RV pacing leads abandoned 2009 at time of Biv/ICD upgrade Type 2 diabetes mellitus (HCC) Venous insufficiency Ventricular tachycardia ([facility]) 12/10 - s/p ATP x1 VT (ventricular tachycardia) ([facility]) 05/31/2014 Overview: Last Assessment & Plan: A: BP a bit high. P: Given CKD, hold off increasing lisinopril unless persistently hypertensive. PAST SURGICAL HISTORY: Past Surgical History: Procedure Laterality Date AV FISTULA INSERTION Right 09/05/2018 Procedure: RIGHT arm AVF; Surgeon: Amilcar Hampton MD, FACS; Location: [facility] MAIN OR BACK SURGERY CARDIAC CATHERIZATION CARDIAC SURGERY CARDIOVASCULAR STRESS TEST 10/2018 Persantine SPECT: reversible anterior, apical. anteroseptal, inferoapical defect, EF 36% CATARACT REMOVAL WITH IMPLANT Left 09/16/2014 Procedure: Left Cataract Extraction w/ IOL Implant; Surgeon: Charisse Santana MD; Loc ation: [facility] MAIN OR CATARACT REMOVAL WITH IMPLANT Right 10/14/2014 Procedure: Right Cataract Extraction w/ IOL Implant; Surgeon: Charisse Santana MD; Lo cation: [facility] MAIN OR CORONARY ANGIOPLASTY CORONARY ARTERY BYPASS GRAFT EGD AND COLONOSCOPY N/A 12/18/2015 Procedure: EGD / COLONOSCOPY - bmi 44 - has pacemaker defibrilator ; Surgeon: Meredith forbes MD; Location: [facility] MEDICAL PROCEDURE UNIT IR PROCEDURE Right 12/14/2018 Procedure: Fistulagram; Surgeon: Velasquez Hayes MD; Location: [facility] INTERVENTIONAL RADIOLO GY KNEE SURGERY Right OTHER SURGICAL HISTORY UNLISTED PROCEDURE ARTHROSCOPY pacemaker medtronic PACEMAKER INSERTION SHUNT PLACEMENT/INSERTION Right 07/03/2018 Procedure: INSERTION SHUNT HEMODIALYSIS W/ PERMACATH; Surgeon: Melba Wallace MD; L ocation: [facility] MAIN OR TRANSTHORACIC ECHOCARDIOGRAM 10/2018 EF 30-35%, anterior HK, mod RV dil, Ao 4.06, RVSP 45 CURRENT MEDICATIONS: Current Outpatient Medications Medication Sig Dispense Refill allopurinol (ZYLOPRIM) 300 [...] (before breakfast ). No current facility-administered medications for this visit. ALLERGIES: Allergies Allergen Reactions Morphine Other (See Comments) Became really mean Changes personality to "mean" "get mean" SOCIAL HISTORY: He reports that he quit smoking about 17 years ago. His smoking use included cigarettes. Kvng seo has a 30.00 pack-year smoking history. He quit smokeless tobacco use about a year ago. Hi s smokeless tobacco use included chew. He reports current alcohol use. He reports that he do es not use drugs. FAMILY HISTORY: Family History Problem Relation Age of Onset No known problems Mother No known problems Father No known problems Sister No known problems Brother No known problems Maternal Grandmother No known problems Maternal Grandfather No known problems Paternal Grandmother No known problems Paternal Grandfather Anemia Neg Hx Arrhythmia Neg Hx Asthma Neg Hx Clotting disorder Neg Hx Fainting Neg Hx Genetic syndromes Neg Hx Heart attack Neg Hx Heart surgery Neg Hx High cholesterol Neg Hx Hypertension Neg Hx Pacemaker Neg Hx Premature CHD Neg Hx Sudden Neg Hx Review of Systems Constitutional: Negative. HENT: Negative. Eyes: Negative. Respiratory: Positive for cough. Cardiovascular: Negative. Gastrointestinal: Negative. Genitourinary: Negative. Musculoskeletal: Positive for back pain and falls (2 weeks ago). Skin: Negative. Neurological: Positive for weakness (bilateral knees). Endo/Heme/Allergies: Negative. Psychiatric/Behavioral: The patient has insomnia. PHYSICAL EXAMINATION: Blood pressure 98/50, pulse 73, resp. rate 18, height 1.702 m (5' 7"), weight 105.7 kg (233 lb 0.4 oz), SpO2 (!) 89 %. Body mass index is 36.5 kg/m. GENERAL: David Kerr is in no acute distress with unlabored respirations. He does appear comfortable throughout the exam today. CHEST: Clear to ausculation without crackles or wheeze. HEART: Regular rate and rhythm without murmurs. 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 This is not tender to palpation. EXTREMITIES: No cyanosis, clubbing, or edema. Distal pulses are palpable. NEUROLOGICAL EXAM: MENTAL STATUS: He is awake, alert, and oriented. He follows simple and complex commands. His speech is fluent, he comprehends speech well, and he repeats well. He has no apparent deficits with short or superintendent terminal memory. MOTOR EXAM: (5 IS NORMAL) * Indicates pain limited the patient notes that he underwent spine surgery years ago by Dr. Dunne on a semiurgent basis for right thigh weakness but the quadriceps muscle never complet mehul recovered MUSCLE/ MOVEMENT: RIGHT LEFT Deltoids 5+ 5 Biceps 5+ 5 Triceps 5 5 Wrist Flexion 5 5 Wrist Extension 5 5 Interossei 5 5 APB 5 5 Board Certified Music Therapist Strength 5 5 Knee Flexion 5 5 Knee Extension 5 5 Dorsiflexion 5 5 Extensor Hallicus Longus 5 5 Quadriceps 4 5 Plantarflexion 5 5 SENSORY EXAM: Sensory exam shows no diminished sensation to light touch or pain throughout the upper and lower extremities. He diagrams bilateral T6 dermatome pain problems but these and his back pain have been more manageable of late. There is no change in light touch sensation as I mo ve from below the T6 dermatome across it and above it REFLEXES: (2 OR 2+ IS NORMAL) REFLEX: RIGHT LEFT BICEPS 2 2 BRACHIORADIALIS 2 2 TRICEPS 2 2 PATELLAR 1 1 ACHILLES 2 0 GAIT: He walks with a walker. He has had 1 fall TEST AND RADIOGRAPHIC REVIEW: His imaging was reviewed in detail today during the visit. The thoracic spine CT from 04/2019 shows correction of the inferior half to two thirds of T6 and the superior third of T7 by a heterogeneous mass containing some bone fragments which tends to protrude laterally a bit further on the right than the left. This enhances subtly with IV contrast. The radio logist believes that there is some encroachment on the spinal canal but because of the patie nt's body habitus and technique I cannot confirm or deny this. 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 Question metastatic disease versus indolent infection. NEUROSURGICAL DIAGNOSES: Encounter Diagnosis Name Primary? Mass of spine Yes GENERAL DIAGNOSES: Past Medical History: Diagnosis Date Acute metabolic encephalopathy AICD (automatic cardioverter/defibrillator) present 04/03/2010 A: Biventricular ICD is functioning appropriately. P: Echo in one year with ICD follow up . Overview: Overview: A: Biventricular ICD is functioning appropriately. P: Echo in one year with ICD follow up. Arteriosclerotic cardiovascular disease Arthralgia Atrial fibrillation (HCC) permanent - not on AC due to GI bleed 2015 - declined HENRI occlusion Cardiomyopathy (HCC) 02/21/2017 Last Assessment & Plan: A: Ischemic cardiomyopathy. NYHA Class III. P: 1. Echo before his next visit with me. 2. Continue current meds. If persistent hypertension, will try to i ncrease lisinopril. Overview: Last Assessment & Plan: A: Ischemic cardiomyopathy. NYHA C lass III. P: 1. Echo before his next visit with me. 2. Continue current meds. If persist ent hypertension, will try to incr Cellulitis of left lower extremity Chest pain Chest pain Claustrophobia Complete heart block (HCC) 01/28 Congestive heart failure (HCC) Coronary artery disease s/p CABG x4 12/01 Diabetes mellitus type II, non insulin dependent (HCC) End stage renal disease (HCC) on HD - right IJ PermaCath - right UE AVF Gastrointestinal hemorrhage associated with gastric ulcer 08/20/2016 Gout Hemodialysis patient (HCC) - tue Hypercholesteremia Hyperlipidemia 10/19/2018 Hypertension Ischemic cardiomyopathy Left arm pain Left bundle branch block (LBBB) 11/18/2017 Obesity Old myocardial infarction 1998 Persistent atrial fibrillation 08/20/2016 Last Assessment & Plan: A: Persistent afib. [id number] Risk Score: 5 - 7.2% Estimated Stroke Risk Per Year HAS-BLED Score for Major Bleeding Risk: 2 - Risk: Study One - 4.1%; St udy Two - 1.88 bleeds per 100 patient years P: Unable to tolerate anticoagulation. ASA only . Overview: Last Assessment & Plan: A: Persistent afib. [id number] Risk Score: 5 - 7 .2% Estimated Stroke Risk Per Year Pneumonia Pneumonia due to infectious organism Pulmonary hypertension (HCC) Severe sepsis with septic shock (HCC) Sleep apnea not using CPAP Status post internal cardiac defibrillator procedure s/p BS Biv/ICD 01/01 - gen change 01/09 Status post placement of cardiac pacemaker s/p DC pacemaker 01/28 - RA/RV pacing leads abandoned 2009 at time of Biv/ICD upgrade Type 2 diabetes mellitus (HCC) Venous insufficiency Ventricular tachycardia (HCC) 12/10 - s/p ATP x1 VT (ventricular tachycardia) ([facility]) 05/31/2014 Overview: Last Assessment & Plan: A: BP a bit high. P: Given CKD, hold off increasing lisinopril unless persistently hypertensive. PLAN: David Kerr presented todayfor re-evaluation of an ongoing back issue and his neur ologic problems. He has a destructive mass lesion involving the caudal portion of T6 and the rostral portion of T7. Radiologist believes that there is some encroachment on the spinal canal. We need to determine whether this lesion is infectious or neoplastic. I plan to undertake a biopsy of this via the right T7 pedicle this afternoon under fluoroscopic control. Fortunately at this time he seems to have reasonable pain control, and we cannot discern any change in his neurologic examination from what he reports was his previous situation. I had a lengthy discussion with him about his options for care including surgical and non-s urgical options. In discussing surgical options, we discussed the biopsy of Paraspinous mass at T6-7 that he is having done on 07/12/2019. He understands that in most instances the recovery from surgery can be lengthy and sometime s difficult. He would like to go forward with the biopsy this afternoon under local anesthesia. I, Paul Nielson MD, personally performed the services described in this documentatio n, as scribed by CASSIDY Garza in my presence, and it is both accurate and complete. Paul Nielson MD 07/06/19 ELECTRONICALLY SIGNED BY: Paul Nielson MD, 07/06/2019 1:06 PM documented in thi s encounter Plan of Treatment +--------+ + + + + | Date | Type | Specialty | Care Team | Description | +--------+ + + + + | 07/16/ | Off-Site | Nephrology | Maty Tian | | | 2018 | Visit | | DO Rol[place] [address] [place] [address] | | | | | | [address] | | | | | | [place] | | | | | | [id number] | | | | | | | | +--------+ + + + + | 09/25/ | Office | Cardiology | Sheldon Spence | | | 2019 | Visit | | MD [address] | | | | | | [facility] | | | | | | [place] | | | | | | [phone] | | | | | | | [...] | | | | | [address] [place] | | | | | | [address] | | | | | | | | +--------+ + + + + + + +--------+ + + | Name | Type | Priori | Associated Diagnoses | Order Schedule | | | | ty | | | + + +--------+ + + | Surgical Pathology | Pathology | STAT | Mass of spine | Ordered: 07/06/2019 | | Exam | and | | | | | | Cytology | | | | + + +--------+ + + | Surgical Pathology | Pathology | STAT | Mass of spine | Ordered: 07/06/2019 | | Exam | and | | | | | | Cytology | | | | + + +--------+ + + documented as of this encounter [...] + + documented in this encounter Results Culture, Tissue, Smear, Aerobe (07/06/2019 5:00 PM PST) + + + + + + | Component | Value | Ref Range | Performed | Pathologist | | | | | At | Signature | + + + + + + | Culture | 1+ Staphylococcus | | [facility] | | | | epidermidisComment: | | STAnastacia MAGAÑA | | | | Growth in THIO [...] [address] | [place] | [phone] | | [facility] | | [address] | | | - LABORATORY | | | | + + + + + Bridgette Segura (07/06/2019 5:00 PM PST) + + + [...] [address] | [place] | [phone] | | [facility] | | [address] | | | - LABORATORY | | | | + + + + + documented in this encounter Visit Diagnoses + + | Diagnosis | + + | Mass of spine - Primary | + + documented in this encounter Additional Health Concerns + + + + | Infection | Noted Time | Resolved Time | + + + + | Methicillin-resistant Staphylococcus aureus | 10/30/2018 9:33 AM | | | | PDT | | + + + + documented as of this encounter
--- OUTSIDE RECORDS SUMMARY | ~2019-07-14 | XMS | Encounter Summary ---
Demographics + + + | Address | [address] | | | [place] [address] | + + + | Home Phone [...] + | Lula Kerr | ECON | [address] | | | | | [place] | | | | | [address] | | + + + + + Care Team Providers + +------+ + | Care Weigher Production Name | Role | Phone | + [...] Ninfa [place] | | | | | [phone] | [place] [address] | | +--------+ + + + + [...] | Visit | | DO [address] | | | | | | [address] | | | | | | [place] | | | | | | [address] | | | | | | | | +--------+ + + + + | 09/25/ | Office | Cardiology | Sheldon Spence | | | 2019 | Visit | | MD [address] | | | | | | [place] | | | | | | [place] | | | | | | [address] | | | | | | | [...] [place] | | | | | | [address] | | | | | | | [...] + + documented in this encounter Results CT Chest wo Contrast (05/24/2019 12:00 AM [...]
--- OUTSIDE RECORDS SUMMARY | ~2019-07-14 | XMS | Encounter Summary ---
Demographics + + + | Address | [address] | | | [place] [address] | + + + | Home Phone [...] + | Lula Kerr | ECON | [address] | | | | | [place] | | | | | [address] | | + + + + + Care Team Providers + +------+ + | Care Supervisor Building Maintenance Name | Role | Phone | + +------+ + | Gregory Drummond MD | PCP | | + +------+ + Reason for Referral Evaluate & Treat (Routine) +--------+ + + + + + | Status | Reason | Specialty | Diagnoses / | Referred By | Referred To | | | | | Procedures | Contact | Contact | +--------+ + + + + + | Closed | Specialty | Interventiona | Diagnoses | Alcantar, | Sill, | | | Services | l Radiology | ESRD (end | Silvina Moses, | Velasquez Moses MD | | | Required | | stage renal | MD Elton Moses | [address] | | | | | disease) on | [place] | [address] | | | | | dialysis | [address] [place] | [place] | | | | | (HCC) | [facility] [place] | [place], [place] | | | | | Complication | [id number] | [id number] Phone: | | | | | of | Phone: | [phone] | | | | | arteriovenou | [phone] | Fax: | | | | | s dialysis | Fax: | [phone] | | | | | fistula, | [phone] | | | | | | initial | | | | | | | encounter | | | +--------+ + + + + + Encounter Details +--------+ + + + + | Date | Type | Department | Care Team | Description | +--------+ + + + + | 12/11/ | Orders Only | [facility] [place] | Silvina Alcantar W, | ESRD (end stage | | 2019 | | NEPHROLOGY [address] | renal disease) on | | | | [address] | [address] [place] | dialysis (HCC) | | | | [place], [place] | [place] [address] | (Primary Dx); | | | | [address] | [phone] | Complication of | | | | [phone] | | arteriovenous | | | | | | dialysis fistula, | | | | | | initial encounter | +--------+ + + + + Social [...] | Visit | | DO [address] | | | | | | [address] | | | | | | [place] | | | | | | [address] | | | | | | | | +--------+ + + + + | 09/25/ | Office | Cardiology | Sheldon Spence | | | 2019 | Visit | | MD [address] | | | | | | [place] | | | | | | [place] | | | | | | [address] | | | | | | | [...] [place] | | | | | | [address] | | | | | | | | +--------+ + + + + + + +--------+ + + | Name | Type | Priori | Associated Diagnoses | Order Schedule | | | | ty | | | + + +--------+ + + | Ambulatory referral | Outpatient | Routin | ESRD (end stage | Ordered: 12/11/2018 | | to Interventional | Referral | e | renal disease) on | | | Radiology | | | dialysis ([facility]) | | | | | | Complication of | | | | | | arteriovenous | | | | | | dialysis fistula, | | | | | | initial encounter | | + + +--------+ + + documented as of this encounter Visit Diagnoses + + | Diagnosis | + + | ESRD (end stage renal disease) on dialysis (HCC) - Primary End stage renal disease | + + | Complication of arteriovenous dialysis fistula, initial encounter | + + documented in this encounter Additional Health Concerns + + + + | Infection | Noted Time | Resolved Time | + + + + | Methicillin-resistant Staphylococcus aureus | 10/30/2018 9:33 AM | | | | PDT | | + + + + documented as of this encounter"
--- OUTSIDE RECORDS SUMMARY | ~2019-07-14 | XMS | Encounter Summary ---
Demographics + + + | Address | [address] | | | [place] [address] | + + + | Home Phone | | + + + | Preferred Language | Unknown | + + + | Marital Status | | + + + | Latter-Day Affiliation | 1041 | + + + | Race | Unknown | + + + | Ethnic Group | Unknown | + + + Author + + + | Author | [facility] | | | and [place] | + + + | Organization | [facility] | | | and [place] | + + + | Address | Unknown | + + + | Phone | Unavailable | + + + Support + + + + + | Name | Relationship | Address | Phone | + + + + + | Lula Kerr | ECON | [address] | | | | | [place] | | | | | [address] | | + + + + + Care Team Providers + +------+ + | Care Nurse Ldr Name | Role | Phone | + [...] | | | | disease) on | [place], | [address] | | | | | dialysis | [place] | [place], | | | | | ([facility]) | [address] | [place] [address] | | | | | Procedures | Phone: | Phone: | | | | | [place] ESR[facility] | [phone] | [phone] | | | | | RELATED SVC | Fax: | Fax: | | | | | MONTHLY | [phone] | [phone] | | | | | 20&/> YR [...] | | [address] | [place] | dialysis (HCC) | | | | [place], [place] | [place], [place] | (Primary Dx) | | | | [address] | [address] | | | | | [phone] | | | +--------+ + + + [...] Visit | | DO [address] | | | | | | [address] | | | | | | [place] | | | | | | [id number] | | | | | | | | +--------+ + + + + | 09/25/ | Office | Cardiology | Sheldon Spence | | | 2019 | Visit | | [address] | | | | | | [place] | | | | | | [place] | | | | | | [address] | | | | | | | [...] | | | | | [address] [place], [place] | | | | | | [address] | | | | | | | [...]
--- OUTSIDE RECORDS SUMMARY | ~2019-07-14 | XMS | Encounter Summary ---
Demographics + + + | Address | [address] | | | [place] [address] | + + + | Home Phone | | + + + | Preferred Language | Unknown | + + + | Marital Status | | + + + | Latter Day Affiliation | 1041 | + + + | Race | Unknown | + + + | Ethnic Group | Unknown | + + + Author + + + | Author | [facility] | | | and [place] | + + + | Organization | [facility] | | | and [place] | + + + | Address | Unknown | + + + | Phone | Unavailable | + + + Support + + + + + | Name | Relationship | Address | Phone | + + + + + | Lula Kerr | ECON | [address] | | | | | [place] | | | | | [address] | | + + + + + Care Team Providers + +------+ + | Care Mix Maker Name | Role | Phone | + +------+ + | Gregory Drummnod MD | PCP | | + +------+ + Encounter Details +--------+ + + + + | Date | Type | Department | Care Team | Description | +--------+ + + + + | 07/05/ | Abstract | [facility] | Provider, | | | 2019 | | NEUROSURGERY [address] | [address] | | | | | [address] | [place] | | | | | [place] | [place] [address] | | | | | [address] | | | | | | [phone] | | | +--------+ + + + [...] | Visit | | DO [address] | | | | | | [address] | | | | | | [place] | | | | | | [address] | | | | | | | | +--------+ + + + + | 09/25/ | Office | Cardiology | Sheldon Spence | | | 2019 | Visit | | [address] | | | | | | [place] | | | | | | [place] | | | | | | [address] | | | | | | | [...] [place] | | | | | | [address] | | | | | | | [...]
--- OUTSIDE RECORDS SUMMARY | ~2019-07-14 | XMS | Encounter Summary ---
Demographics + + + | Address | [address] | | | [place] [address] | + + + | Home Phone | | + + + | Preferred Language | Unknown | + + + | Marital Status | | + + + | Adventist Affiliation | 1041 | + + + | Race | Unknown | + + + | Ethnic Group | Unknown | + + + Author + + + | Author | [facility] | | | and [place] | + + + | Organization | [facility] | | | and [place] | + + + | Address | Unknown | + + + | Phone | Unavailable | + + + Support + + + + + | Name | Relationship | Address | Phone | + + + + + | Lula Kerr | ECON | [address] | | | | | [place] | | | | | [address] | | + + + + + Care Team Providers + +------+ + | Care Accounting Recruiter Name | Role | Phone | + [...] | | [address] | [place] | | | | | [place], [place] | [place], [place] | | | | | [address] | [address] | | | | | [phone] | | | +--------+ + + + [...] | Visit | | DO [address] [place] | | | | | | [address] | | | | | | [place] | | | | | | [address] | | | | | | | | +--------+ + + + + | 09/25/ | Office | Cardiology | Sheldon Spence | | | 2019 | Visit | | [address] | | | | | | [place] | | | | | | [place] | | | | | | [address] | | | | | | | [...] [place] | | | | | | [address] | | | | | | | [...]
--- OUTSIDE RECORDS SUMMARY | ~2019-07-14 | XMS | Encounter Summary ---
Demographics + + + | Address | [address] | | | [place] [address] | + + + | Home Phone | | + + + | Preferred Language | Unknown | + + + | Marital Status | | + + + | Temple Affiliation | 1041 | + + + [...] + | Lula Kerr | ECON | [address] | | | | | [place] | | | | | [address] | | + + + + + Care Team Providers + +------+ + | Care Sales Promotion Officer Name | Role | Phone | + +------+ + | Gregory Drummond MD | PCP | | + +------+ + Reason for Referral Diagnostic/Screening (Emergency) +--------+--------+ + + + + | Status | Reason | Specialty | Diagnoses / | Referred By | Referred To | | | | | Procedures | Contact | Contact | +--------+--------+ + + + + | Closed | | Radiology | Diagnoses | [place], | [place] | | | | | Paraspinal | Maty M, | [facility] [address] | | | | | mass | DO [address] | [place] | | | | | Fracture of | [place], [place] | [place], | | | | | vertebra due | [address] [place] | [place] [address] | | | | | to | [place] | Phone: | | | | | osteoporosis | [address] | [phone] | | | | | , initial | Phone: | Fax: | | | | | encounter | [phone] | [phone] | | | | | (HCC) Type | Fax: | | | | | | 2 diabetes | [phone] | | | | | | mellitus | | | | | | | with chronic | | | | | | | kidney | | | | | | | disease on | | | | | | | chronic | | | | | | | dialysis, | | | | | | | without | | | | | | | long-term | | | | | | | current use | | | | | | | of insulin | | | | | | | (HCC) | | | | | | | Procedures | | | | | | | CT Thoracic | | | | | | | Spine w | | | | | | | Contrast | | | +--------+--------+ + + + + Diagnostic/Screening (Routine) +--------+--------+ + + + + | Status | Reason | Specialty | Diagnoses / | Referred By | Referred To | | | | | Procedures | Contact | Contact | +--------+--------+ + + + + | Closed | | Radiology | Diagnoses | [place], | [address] | | | | | Paraspinal | Maty M, | [address] [place] | | | | | mass | DO [address] | [place], | | | | | Procedures | [place], [place] | [place] [address] | | | | | CT Guided | [address] [place] | Phone: | | | | | Biopsy Lung | [place] | [phone] | | | | | [place] | [address] | Fax: | | | | | Mediastinum | Phone: | [phone] | | | | | DOS | [phone] | | | | | | 07/12/19 @ | Fax: | | | | | | 100PM | [phone] | | +--------+--------+ + + + + Encounter Details +--------+---------+ + + + | Date | Type | Department | Care Team | Description | +--------+---------+ + + + | 07/02/ | E-Visit | [facility] [place] | Maty Tian | | | 2018 | | NEPHROLOGY [address] | M, DO [address] | | | | | [address] | [place] | | | | | [place], [place] | [place], [place] | | | | | [address] | [address] | | | | | [phone] | | | +--------+---------+ + + + [...] encounter Progress Notes Maty Tian DO - 07/06/2019 8:42 AM PSTRENAL This is a 73 YOWM with 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 I discussed CT guided Bx of this with Radiology, on 07/03/19, and they preferred that nancy Cottrell. I then, spoke to Dr. Paul Nielson, N/S, who kindly agreed to arrange an open Needle BX , outpt on 07/06/19. I spoke to bonus clerk, at [facility], yesterday. He will be dialyzed heparin free this AM, 07/06 and was advised to come to Dr. Nielson's office at 12 Noon for a pre-op Consult. When I examined him last on 07/02/19, he could move all 4 ext's against gravity. He denied loss or d ifficulty with bowel control. He makes no urine, no sxs. He has mild chronic numbness in his toes, for years, presumably due to diabetic polyneuropathy. Additionally, he denied fe er, chills, night sweats, or weight loss. His additional Nephrology records are in "[facility]" the dedicated EMR for [facility]. Will obtain paper copies of those to be scanned into [employer] by [employer]. I greatly Appreciate Dr. Nielson's help with David' case. : Gregory Nielson MD [facility], [place], [place]. documented in thi s encounter Plan of Treatment +--------+ + + + + | Date | Type | Specialty | Care Team | Description | +--------+ + + + + | 07/16/ | Off-Site | Nephrology | Maty Tian | | | 2019 | Visit | | DO [address] | | | | | | [place] | | | | | | [place] | | | | | | [address] | | | | | | | | +--------+ + + + + | 09/25/ | Office | Cardiology | Sheldon Spence | | | 2019 | Visit | | [address] | | | | | | [place] | | | | | | [place] | | | | | | [address] | | | | | | | [...] [place] | | | | | | [address] | | | | | | | | +--------+ + + + + + +---------+--------+ + + | Name | Type | Priori | Associated Diagnoses | Order Schedule | | | | ty | | | + +---------+--------+ + + | CT Guided Biopsy | Imaging | Routin | Paraspinal mass | Expected: | | Lung Or Mediastinum | | e | | 08/02/2019, Expires: | | | | | | 07/02/2020 | + +---------+--------+ + + | CT Thoracic Spine w | Imaging | STAT | Paraspinal mass | Expected: | | Contrast | | | Fracture of vertebra | 07/03/2019, Expires: | | | | | due to | 07/03/2020 | | | | | osteoporosis, | | | | | | initial encounter | | | | | | ([facility]) Type 2 | | | | | | diabetes mellitus | | | | | | with chronic kidney | | | | | | disease on chronic | | | | | | dialysis, without | | | | | | long-term current | | | | | | use of insulin ([facility]) | | + +---------+--------+ + + documented as of this encounter Visit Diagnoses + + | Diagnosis | + + | Paraspinal mass - Primary Other symptoms involving nervous and musculoskeletal | | systems | + + | Fracture of vertebra due to osteoporosis, initial encounter (HCC) | + + | Type 2 diabetes mellitus with chronic kidney disease on chronic dialysis, without | | long-term current use of insulin (HCC) | + + documented in this encounter Additional Health Concerns + + + + | Infection | Noted Time | Resolved Time | + + + + | Methicillin-resistant Staphylococcus aureus | 10/30/2018 9:33 AM | | | | PDT | | + + + + documented as of this encounter
--- OUTSIDE RECORDS SUMMARY | ~2019-07-14 | XMS | Encounter Summary ---
Demographics + + + | Address | [address] | | | [place] [address] | + + + | Home Phone | | + + + | Preferred Language | Unknown | + + + | Marital Status | | + + + | Worship Affiliation | 1041 | + + + | Race | Unknown | + + + | Ethnic Group | Unknown | + + + Author + + + | Author | [facility] | | | and [place] | + + + | Organization | [facility] | | | and [place] | + + + | Address | Unknown | + + + | Phone | Unavailable | + + + Support + + + + + | Name | Relationship | Address | Phone | + + + + + | Lula Kerr | ECON | [address] | | | | | [place] | | | | | [address] | | + + + + + Care Team Providers + +------+ + | Care Parts Counterman Name | Role | Phone | + [...] NEPHROLOGY [address] | MD [address] | | | | | [address] | [address] [place] | | | | | [place], [place] | [place] [address] | | | | | [address] | [phone] | | | | | [phone] | | | +--------+ + + + [...] | Visit | | DO [address] | | | | | | [address] | | | | | | [place] | | | | | | [address] | | | | | | | | +--------+ + + + + | 09/25/ | Office | Cardiology | Sheldon Spence | | | 2019 | Visit | | [address] | | | | | | [place] | | | | | | [place] | | | | | | [address] | | | | | | | | +--------+ + + + + | 09/25/ | Procedure | Cardiology | | | | 2019 | visit | | | | +--------+ + + + + | 11/28/ | Office | Cardiology | Natalie Luo DO | | | 2019 | Visit | | [address] | | | | | | [place] | | | | | | [address] | | | | | | | [...]
--- OUTSIDE RECORDS SUMMARY | ~2019-07-14 | XMS | Encounter Summary ---
Demographics + + + | Address | [address] | | | [place] [address] | + + + | Home Phone | | + + + | Preferred Language | Unknown | + + + | Marital Status | | + + + | Hoahaoism Affiliation | 1041 | + + + | Race | Unknown | + + + | Ethnic Group | Unknown | + + + Author + + + | Author | [facility] | | | and [place] | + + + | Organization | [facility] | | | and [place] | + + + | Address | Unknown | + + + | Phone | Unavailable | + + + Support + + + + + | Name | Relationship | Address | Phone | + + + + + | Lula Kerr | ECON | [address] | | | | | [place] | | | | | [phone] | | + + + + + Care Team Providers + +------+ + | Care Shaper Hand Name | Role | Phone | + +------+ + | Gregory Drummond MD | PCP | | + +------+ + Encounter Details +--------+ + + + + | Date | Type | Department | Care Team | Description | +--------+ + + + + | 06/28/ | Abstract | [facility] | Alcantar, Silvina W, | | | 2018 | | NEPHROLOGY [address] | MD [address] | | | | | [address] | [address] [place] | | | | | [place], [place] | [place] [address] | | | | | [address] | [phone] | | | | | [phone] | | | +--------+ + + + [...] | | 2019 | Visit | | M, DO [address] | | | | | | [address], [address] | | | | | | [place], [place] | | | | | | [address] | | | | | | | | +--------+ + + + + | 09/25/ | Office | Cardiology | Sheldon Spence | | | 2019 | Visit | | MD [address] | | | | | | [address] | | | | | | [place] | | | | | | [address] | | | | | | | [...] [place] | | | | | | [address] | | | | | | | | +--------+ + + + + documented as of this encounter Procedures + +--------+ + + + | Procedure Name | Priori | Date/Time | Associated Diagnosis | Comments | | | ty | | | | + +--------+ + + + | EXTERNAL LAB: RAUL | Routin | 06/19/2018 | | Results for this | | | e | | | procedure are in the | | | | | | results section. | + +--------+ + + + | EXTERNAL LAB: | Routin | 06/19/2018 | | Results for this | | GLUCOSE | e | | | procedure are in the | | | | | | results section. | + +--------+ + + + | EXTERNAL LAB: KENDRICK | Routin | 06/19/2018 | | Results for this | | ACID | e | | | procedure are in the | | | | | | results section. | + +--------+ + + + | EXTERNAL LAB: ALT | Routin | 06/19/2018 | | Results for this | | | e | | | procedure are in the | | | | | | results section. | + +--------+ + + + | EXTERNAL LAB: AST | Routin | 06/19/2018 | | Results for this | | | e | | | procedure are in the | | | | | | results section. | + +--------+ + + + | EXTERNAL LAB: | Routin | 06/19/2018 | | Results for this | | ALKALINE PHOSPHATASE | e | | | procedure are in the | | | | | | results section. | + +--------+ + + + | EXTERNAL LAB: | Routin | 06/19/2018 | | Results for this | | BILIRUBIN, TOTAL | e | | | procedure are in the | | | | | | results section. | + +--------+ + + + | EXTERNAL LAB: | Routin | 06/19/2018 | | Results for this | | ALBUMIN | e | | | procedure are in the | | | | | | results section. | + +--------+ + + + | EXTERNAL LAB: | Routin | 06/19/2018 | | Results for this | | PROTEIN, TOTAL | e | | | procedure are in the | | | | | | results section. | + +--------+ + + + | EXTERNAL LAB: | Routin | 06/19/2018 | | Results for this | | CALCIUM | e | | | procedure are in the | | | | | | results section. | + +--------+ + + + | EXTERNAL LAB: CARBON | Routin | 06/19/2018 | | Results for this | | DIOXIDE | e | | | procedure are in the | | | | | | results section. | + +--------+ + + + | EXTERNAL LAB: | Routin | 06/19/2018 | | Results for this | | CHLORIDE | e | | | procedure are in the | | | | | | results section. | + +--------+ + + + | EXTERNAL LAB: | Routin | 06/19/2018 | | Results for this | | POTASSIUM | e | | | procedure are in the | | | | | | results section. | + +--------+ + + + | EXTERNAL LAB: SODIUM | Routin | 06/19/2018 | | Results for this | | | e | | | procedure are in the | | | | | | results section. | + +--------+ + + + | EXTERNAL LAB: CBC | Routin | 06/19/2018 | | Results for this | | | e | | | procedure are in the | | | | | | results section. | + +--------+ + + + | EXTERNAL LAB: Moi SINGH | Routin | 06/19/2018 | | Results for this | | NATURETIC PEPTIDE | e | | | procedure are in the | | | | | | results section. | + +--------+ + + + | EXTERNAL LAB: MO | Routin | 06/19/2018 | | Results for this | | | e | | | procedure are in the | | | | | | results section. | + +--------+ + + + | EXTERNAL LAB: | Routin | 06/19/2018 | | Results for this | | CREATININE | e | | | procedure are in the | | | | | | results section. | + +--------+ + + + | EXTERNAL LAB: BUN | Routin | 06/06/2018 | | Results for this | | | e | | | procedure are in the | | | | | | results section. | + +--------+ + + + | EXTERNAL LAB: | Routin | 06/06/2018 | | Results for this | | GLUCOSE | e | | | procedure are in the | | | | | | results section. | + +--------+ + + + | EXTERNAL LAB: OCLT | Routin | 06/06/2018 | | Results for this | | | e | | | procedure are in the | | | | | | results section. | + +--------+ + + + | EXTERNAL LAB: AST | Routin | 06/06/2018 | | Results for this | | | e | | | procedure are in the | | | | | | results section. | + +--------+ + + + | EXTERNAL LAB: | Routin | 06/06/2018 | | Results for this | | ALKALINE PHOSPHATASE | e | | | procedure are in the | | | | | | results section. | + +--------+ + + + | EXTERNAL LAB: | Routin | 06/06/2018 | | Results for this | | BILIRUBIN, TOTAL | e | | | procedure are in the | | | | | | results section. | + +--------+ + + + | EXTERNAL LAB: | Routin | 06/06/2018 | | Results for this | | ALBUMIN | e | | | procedure are in the | | | | | | results section. | + +--------+ + + + | EXTERNAL LAB: | Routin | 06/06/2018 | | Results for this | | PROTEIN, TOTAL | e | | | procedure are in the | | | | | | results section. | + +--------+ + + + | EXTERNAL LAB: | Routin | 06/06/2018 | | Results for this | | CALCIUM | e | | | procedure are in the | | | | | | results section. | + +--------+ + + + | EXTERNAL LAB: CARBON | Routin | 06/06/2018 | | Results for this | | DIOXIDE | e | | | procedure are in the | | | | | | results section. | + +--------+ + + + | EXTERNAL LAB: | Routin | 06/06/2018 | | Results for this | | CHLORIDE | e | | | procedure are in the | | | | | | results section. | + +--------+ + + + | EXTERNAL LAB: | Routin | 06/06/2018 | | Results for this | | POTASSIUM | e | | | procedure are in the | | | | | | results section. | + +--------+ + + + | EXTERNAL LAB: SODIUM | Routin | 06/06/2018 | | Results for this | | | e | | | procedure are in the | | | | | | results section. | + +--------+ + + + | EXTERNAL LAB: Moi SINGH | Routin | 06/06/2018 | | Results for this | | NATURETIC PEPTIDE | e | | | procedure are in the | | | | | | results section. | + +--------+ + + + | EXTERNAL LAB: MO | Routin | 06/06/2018 | | Results for this | | | e | | | procedure are in the | | | | | | results section. | + +--------+ + + + | EXTERNAL LAB: | Routin | 06/06/2018 | | Results for this | | CREATININE | e | | | procedure are in the | | | | | | results section. | + +--------+ + + + | EXTERNAL LAB: BUN | Routin | 05/25/2018 | | Results for this | | | e | | | procedure are in the | | | | | | results section. | + +--------+ + + + | EXTERNAL LAB: | Routin | 05/25/2018 | | Results for this | | GLUCOSE | e | | | procedure are in the | | | | | | results section. | + +--------+ + + + | EXTERNAL LAB: ALT | Routin | 05/25/2018 | | Results for this | | | e | | | procedure are in the | | | | | | results section. | + +--------+ + + + | EXTERNAL LAB: AST | Routin | 05/25/2018 | | Results for this | | | e | | | procedure are in the | | | | | | results section. | + +--------+ + + + | EXTERNAL LAB: | Routin | 05/25/2018 | | Results for this | | ALKALINE PHOSPHATASE | e | | | procedure are in the | | | | | | results section. | + +--------+ + + + | EXTERNAL LAB: | Routin | 05/25/2018 | | Results for this | | BILIRUBIN, TOTAL | e | | | procedure are in the | | | | | | results section. | + +--------+ + + + | EXTERNAL LAB: | Routin | 05/25/2018 | | Results for this | | ALBUMIN | e | | | procedure are in the | | | | | | results section. | + +--------+ + + + | EXTERNAL LAB: | Routin | 05/25/2018 | | Results for this | | PROTEIN, TOTAL | e | | | procedure are in the | | | | | | results section. | + +--------+ + + + | EXTERNAL LAB: | Routin | 05/25/2018 | | Results for this | | CALCIUM | e | | | procedure are in the | | | | | | results section. | + +--------+ + + + | EXTERNAL LAB: CARBON | Routin | 05/25/2018 | | Results for this | | DIOXIDE | e | | | procedure are in the | | | | | | results section. | + +--------+ + + + | EXTERNAL LAB: | Routin | 05/25/2018 | | Results for this | | CHLORIDE | e | | | procedure are in the | | | | | | results section. | + +--------+ + + + | EXTERNAL LAB: | Routin | 05/25/2018 | | Results for this | | POTASSIUM | e | | | procedure are in the | | | | | | results section. | + +--------+ + + + | EXTERNAL LAB: SODIUM | Routin | 05/25/2018 | | Results for this | | | e | | | procedure are in the | | | | | | results section. | + +--------+ + + + | EXTERNAL LAB: Moi SINGH | Routin | 05/25/2018 | | Results for this | | NATURETIC PEPTIDE | e | | | procedure are in the | | | | | | results section. | + +--------+ + + + | EXTERNAL LAB: EGFR | Routin | 05/25/2018 | | Results for this | | | e | | | procedure are in the | | | | | | results section. | + +--------+ + + + | EXTERNAL LAB: | Routin | 05/25/2018 | | Results for this | | CREATININE | e | | | procedure are in the | | | | | | results section. | + +--------+ + + + | EXTERNAL LAB: BUN | Routin | 05/10/2018 | | Results for this | | | e | | | procedure are in the | | | | | | results section. | + +--------+ + + + | EXTERNAL LAB: | Routin | 05/10/2018 | | Results for this | | GLUCOSE | e | | | procedure are in the | | | | | | results section. | + +--------+ + + + | EXTERNAL LAB: ALT | Routin | 05/10/2018 | | Results for this | | | e | | | procedure are in the | | | | | | results section. | + +--------+ + + + | EXTERNAL LAB: AST | Routin | 05/10/2018 | | Results for this | | | e | | | procedure are in the | | | | | | results section. | + +--------+ + + + | EXTERNAL LAB: | Routin | 05/10/2018 | | Results for this | | ALKALINE PHOSPHATASE | e | | | procedure are in the | | | | | | results section. | + +--------+ + + + | EXTERNAL LAB: | Routin | 05/10/2018 | | Results for this | | BILIRUBIN, TOTAL | e | | | procedure are in the | | | | | | results section. | + +--------+ + + + | EXTERNAL LAB: | Routin | 05/10/2018 | | Results for this | | ALBUMIN | e | | | procedure are in the | | | | | | results section. | + +--------+ + + + | EXTERNAL LAB: | Routin | 05/10/2018 | | Results for this | | PROTEIN, TOTAL | e | | | procedure are in the | | | | | | results section. | + +--------+ + + + | EXTERNAL LAB: | Routin | 05/10/2018 | | Results for this | | CALCIUM | e | | | procedure are in the | | | | | | results section. | + +--------+ + + + | EXTERNAL LAB: CARBON | Routin | 05/10/2018 | | Results for this | | DIOXIDE | e | | | procedure are in the | | | | | | results section. | + +--------+ + + + | EXTERNAL LAB: | Routin | 05/10/2018 | | Results for this | | CHLORIDE | e | | | procedure are in the | | | | | | results section. | + +--------+ + + + | EXTERNAL LAB: | Routin | 05/10/2018 | | Results for this | | POTASSIUM | e | | | procedure are in the | | | | | | results section. | + +--------+ + + + | EXTERNAL LAB: SODIUM | Routin | 05/10/2018 | | Results for this | | | e | | | procedure are in the | | | | | | results section. | + +--------+ + + + | EXTERNAL LAB: | Routin | 05/10/2018 | | Results for this | | FERRITIN | e | | | procedure are in the | | | | | | results section. | + +--------+ + + + | EXTERNAL LAB: CBC | Routin | 05/10/2018 | | Results for this | | | e | | | procedure are in the | | | | | | results section. | + +--------+ + + + | EXTERNAL LAB: Moi SINGH | Routin | 05/10/2018 | | Results for this | | NATURETIC PEPTIDE | e | | | procedure are in the | | | | | | results section. | + +--------+ + + + | EXTERNAL LAB: MO | Routin | 05/10/2018 | | Results for this | | | e | | | procedure are in the | | | | | | results section. | + +--------+ + + + | EXTERNAL LAB: | Routin | 05/10/2018 | | Results for this | | CREATININE | e | | | procedure are in the | | | | | | results section. | + +--------+ + + + | EXTERNAL LAB: BUN | Routin | 12/15/2015 | | Results for this | | | e | | | procedure are in the | | | | | | results section. | + +--------+ + + + | EXTERNAL LAB: | Routin | 12/15/2015 | | Results for this | | GLUCOSE | e | | | procedure are in the | | | | | | results section. | + +--------+ + + + | EXTERNAL LAB: ALT | Routin | 12/15/2015 | | Results for this | | | e | | | procedure are in the | | | | | | results section. | + +--------+ + + + | EXTERNAL LAB: AST | Routin | 12/15/2015 | | Results for this | | | e | | | procedure are in the | | | | | | results section. | + +--------+ + + + | EXTERNAL LAB: | Routin | 12/15/2015 | | Results for this | | ALKALINE PHOSPHATASE | e | | | procedure are in the | | | | | | results section. | + +--------+ + + + | EXTERNAL LAB: | Routin | 12/15/2015 | | Results for this | | BILIRUBIN, TOTAL | e | | | procedure are in the | | | | | | results section. | + +--------+ + + + | EXTERNAL LAB: | Routin | 12/15/2015 | | Results for this | | ALBUMIN | e | | | procedure are in the | | | | | | results section. | + +--------+ + + + | EXTERNAL LAB: | Routin | 12/15/2015 | | Results for this | | PROTEIN, TOTAL | e | | | procedure are in the | | | | | | results section. | + +--------+ + + + | EXTERNAL LAB: | Routin | 12/15/2015 | | Results for this | | CALCIUM | e | | | procedure are in the | | | | | | results section. | + +--------+ + + + | EXTERNAL LAB: CARBON | Routin | 12/15/2015 | | Results for this | | DIOXIDE | e | | | procedure are in the | | | | | | results section. | + +--------+ + + + | EXTERNAL LAB: | Routin | 12/15/2015 | | Results for this | | CHLORIDE | e | | | procedure are in the | | | | | | results section. | + +--------+ + + + | EXTERNAL LAB: | Routin | 12/15/2015 | | Results for this | | POTASSIUM | e | | | procedure are in the | | | | | | results section. | + +--------+ + + + | EXTERNAL LAB: SODIUM | Routin | 12/15/2015 | | Results for this | | | e | | | procedure are in the | | | | | | results section. | + +--------+ + + + | EXTERNAL LAB: EGFR | Routin | 12/15/2015 | | Results for this | | | e | | | procedure are in the | | | | | | results section. | + +--------+ + + + | EXTERNAL LAB: | Routin | 12/15/2015 | | Results for this | | CREATININE | e | | | procedure are in the | | | | | | results section. | + +--------+ + + + documented in this encounter Results External Lab: CBC (06/19/2018) + +-------+ + + + | Component | Value | Ref Range | Performed | Pathologist | | | | | At | Signature | + +-------+ + + + | WBC, | 5.6 | | | | | External | | | | | + +-------+ + + + | HGB, | 14.5 | | | | | External | | | | | + +-------+ + + + | HCT, | 43.2 | | | | | External | | | | | + +-------+ + + + | PLT, | 118 | | | | | External | | | | | + +-------+ + + + | RBC, | 4.43 | | | | | External | | | | | + +-------+ + + + | MCV, | 98 | | | | | External | | | | | + +-------+ + + + | RDW, | 17.2 | | | | | External | | | | | + +-------+ + + + External Lab: RAUL (06/19/2018) + +-------+ + + + | Component | Value | Ref Range | Performed | Pathologist | | | | | At | Signature | + +-------+ + + + | BUN, | 129 | | | | | External | | | | | + +-------+ + + + External Lab: Glucose (06/19/2018) + +-------+ + + + | Component | Value | Ref Range | Performed | Pathologist | | | | | At | Signature | + +-------+ + + + | Glucose, | 205 | | | | | External | | | | | + +-------+ + + + External Lab: Uric Acid (06/19/2018) + +-------+ + + + | Component | Value | Ref Range | Performed | Pathologist | | | | | At | Signature | + +-------+ + + + | Uric Acid, | 10.5 | | | | | External | | | | | + +-------+ + + + External Lab: ALT (06/19/2018) + +-------+ + + + | Component | Value | Ref Range | Performed | Pathologist | | | | | At | Signature | + +-------+ + + + | ALT, | 22 | | | | | External | | | | | + +-------+ + + + External Lab: AST (06/19/2018) + +-------+ + + + | Component | Value | Ref Range | Performed | Pathologist | | | | | At | Signature | + +-------+ + + + | AST, | 43 | | | | | External | | | | | + +-------+ + + + External Lab: Alkaline Phosphatase (06/19/2018) + +-------+ + + + | Component | Value | Ref Range | Performed | Pathologist | | | | | At | Signature | + +-------+ + + + | ALP, | 201 | | | | | External | | | | | + +-------+ + + + External Lab: Bilirubin, Total (06/19/2018) + +-------+ + + + | Component | Value | Ref Range | Performed | Pathologist | | | | | At | Signature | + +-------+ + + + | Bilirubin, | 2.5 | | | | | Total, | | | | | | External | | | | | + +-------+ + + + External Lab: Albumin (06/19/2018) + +-------+ + + + | Component | Value | Ref Range | Performed | Pathologist | | | | | At | Signature | + +-------+ + + + | Albumin, | 3.8 | | | | | External | | | | | + +-------+ + + + External Lab: Protein, Total (06/19/2018) + +-------+ + + + | Component | Value | Ref Range | Performed | Pathologist | | | | | At | Signature | + +-------+ + + + | Protein, | 8.0 | | | | | Total, | | | | | | External | | | | | + +-------+ + + + External Lab: Calcium (06/19/2018) + +-------+ + + + | Component | Value | Ref Range | Performed | Pathologist | | | | | At | Signature | + +-------+ + + + | Calcium, | 9.9 | | | | | External | | | | | + +-------+ + + + External Lab: Carbon Dioxide (06/19/2018) + +-------+ + + + | Component | Value | Ref Range | Performed | Pathologist | | | | | At | Signature | + +-------+ + + + | Carbon | 33 | | | | | Dioxide, | | | | | | External | | | | | + +-------+ + + + External Lab: Chloride (06/19/2018) + +-------+ + + + | Component | Value | Ref Range | Performed | Pathologist | | | | | At | Signature | + +-------+ + + + | Chloride, | 85 | | | | | External | | | | | + +-------+ + + + External Lab: Potassium (06/19/2018) + +-------+ + + + | Component | Value | Ref Range | Performed | Pathologist | | | | | At | Signature | + +-------+ + + + | Potassium, | 3.6 | | | | | External | | | | | + +-------+ + + + External Lab: Sodium (06/19/2018) + +-------+ + + + | Component | Value | Ref Range | Performed | Pathologist | | | | | At | Signature | + +-------+ + + + | Sodium, | 134 | | | | | External | | | | | + +-------+ + + + External Lab: B Type Naturetic Peptide (06/19/2018) + +-------+ + + + | Component | Value | Ref Range | Performed | Pathologist | | | | | At | Signature | + +-------+ + + + | B-Type | 202.5 | | | | | Naturetic | | | | | | Peptide, | | | | | | External | | | | | + +-------+ + + + + + | Specimen | + + | Blood | + + External Lab: eGFR (06/19/2018) + +-------+ + + + | Component | Value | Ref Range | Performed | Pathologist | | | | | At | Signature | + +-------+ + + + | eGFR, | 19 | | | | | External | | | | | + +-------+ + + + + + | Specimen | + + | Blood | + + External Lab: Creatinine (06/19/2018) + +-------+ + + + | Component | Value | Ref Range | Performed | Pathologist | | | | | At | Signature | + +-------+ + + + | Creatinine, | 3.2 | | | | | External | | | | | + +-------+ + + + + + | Specimen | + + | Blood | + + External Lab: BUN (06/06/2018) + +-------+ + + + | Component | Value | Ref Range | Performed | Pathologist | | | | | At | Signature | + +-------+ + + + | BUN, | 95 | | | | | External | | | | | + +-------+ + + + External Lab: Glucose (06/06/2018) + +-------+ + + + | Component | Value | Ref Range | Performed | Pathologist | | | | | At | Signature | + +-------+ + + + | Glucose, | 165 | | | | | External | | | | | + +-------+ + + + External Lab: ALT (06/06/2018) + +-------+ + + + | Component | Value | Ref Range | Performed | Pathologist | | | | | At | Signature | + +-------+ + + + | ALT, | 18 | | | | | External | | | | | + +-------+ + + + External Lab: AST (06/06/2018) + +-------+ + + + | Component | Value | Ref Range | Performed | Pathologist | | | | | At | Signature | + +-------+ + + + | AST, | 39 | | | | | External | | | | | + +-------+ + + + External Lab: Alkaline Phosphatase (06/06/2018) + +-------+ + + + | Component | Value | Ref Range | Performed | Pathologist | | | | | At | Signature | + +-------+ + + + | ALP, | 228 | | | | | External | | | | | + +-------+ + + + External Lab: Bilirubin, Total (06/06/2018) + +-------+ + + + | Component | Value | Ref Range | Performed | Pathologist | | | | | At | Signature | + +-------+ + + + | Bilirubin, | 1.3 | | | | | Total, | | | | | | External | | | | | + +-------+ + + + External Lab: Albumin (06/06/2018) + +-------+ + + + | Component | Value | Ref Range | Performed | Pathologist | | | | | At | Signature | + +-------+ + + + | Albumin, | 3.5 | | | | | External | | | | | + +-------+ + + + External Lab: Protein, Total (06/06/2018) + +-------+ + + + | Component | Value | Ref Range | Performed | Pathologist | | | | | At | Signature | + +-------+ + + + | Protein, | 7.0 | | | | | Total, | | | | | | External | | | | | + +-------+ + + + External Lab: Calcium (06/06/2018) + +-------+ + + + | Component | Value | Ref Range | Performed | Pathologist | | | | | At | Signature | + +-------+ + + + | Calcium, | 8.9 | | | | | External | | | | | + +-------+ + + + External Lab: Carbon Dioxide (06/06/2018) + +-------+ + + + | Component | Value | Ref Range | Performed | Pathologist | | | | | At | Signature | + +-------+ + + + | Carbon | 30 | | | | | Dioxide, | | | | | | External | | | | | + +-------+ + + + External Lab: Chloride (06/06/2018) + +-------+ + + + | Component | Value | Ref Range | Performed | Pathologist | | | | | At | Signature | + +-------+ + + + | Chloride, | 96 | | | | | External | | | | | + +-------+ + + + External Lab: Potassium (06/06/2018) + +-------+ + + + | Component | Value | Ref Range | Performed | Pathologist | | | | | At | Signature | + +-------+ + + + | Potassium, | 4.2 | | | | | External | | | | | + +-------+ + + + External Lab: Sodium (06/06/2018) + +-------+ + + + | Component | Value | Ref Range | Performed | Pathologist | | | | | At | Signature | + +-------+ + + + | Sodium, | 138 | | | | | External | | | | | + +-------+ + + + External Lab: B Type Naturetic Peptide (06/06/2018) + +-------+ + + + | Component | Value | Ref Range | Performed | Pathologist | | | | | At | Signature | + +-------+ + + + | B-Type | 353.3 | | | | | Naturetic | | | | | | Peptide, | | | | | | External | | | | | + +-------+ + + + + + | Specimen | + + | Blood | + + External Lab: eGFR (06/06/2018) + +-------+ + + + | Component | Value | Ref Range | Performed | Pathologist | | | | | At | Signature | + +-------+ + + + | eGFR, | 21 | | | | | External | | | | | + +-------+ + + + + + | Specimen | + + | Blood | + + External Lab: Creatinine (06/06/2018) + +-------+ + + + | Component | Value | Ref Range | Performed | Pathologist | | | | | At | Signature | + +-------+ + + + | Creatinine, | 2.9 | | | | | External | | | | | + +-------+ + + + + + | Specimen | + + | Blood | + + External Lab: BUN (05/25/2018) + +-------+ + + + | Component | Value | Ref Range | Performed | Pathologist | | | | | At | Signature | + +-------+ + + + | BUN, | 68 | | | | | External | | | | | + +-------+ + + + External Lab: Glucose (05/25/2018) + +-------+ + + + | Component | Value | Ref Range | Performed | Pathologist | | | | | At | Signature | + +-------+ + + + | Glucose, | 125 | | | | | External | | | | | + +-------+ + + + External Lab: ALT (05/25/2018) + +-------+ + + + | Component | Value | Ref Range | Performed | Pathologist | | | | | At | Signature | + +-------+ + + + | ALT, | 17 | | | | | External | | | | | + +-------+ + + + External Lab: AST (05/25/2018) + +-------+ + + + | Component | Value | Ref Range | Performed | Pathologist | | | | | At | Signature | + +-------+ + + + | AST, | 36 | | | | | External | | | | | + +-------+ + + + External Lab: Alkaline Phosphatase (05/25/2018) + +-------+ + + + | Component | Value | Ref Range | Performed | Pathologist | | | | | At | Signature | + +-------+ + + + | ALP, | 212 | | | | | External | | | | | + +-------+ + + + External Lab: Bilirubin, Total (05/25/2018) + +-------+ + + + | Component | Value | Ref Range | Performed | Pathologist | | | | | At | Signature | + +-------+ + + + | Bilirubin, | 1.6 | | | | | Total, | | | | | | External | | | | | + +-------+ + + + External Lab: Albumin (05/25/2018) + +-------+ + + + | Component | Value | Ref Range | Performed | Pathologist | | | | | At | Signature | + +-------+ + + + | Albumin, | 3.5 | | | | | External | | | | | + +-------+ + + + External Lab: Protein, Total (05/25/2018) + +-------+ + + + | Component | Value | Ref Range | Performed | Pathologist | | | | | At | Signature | + +-------+ + + + | Protein, | 7.0 | | | | | Total, | | | | | | External | | | | | + +-------+ + + + External Lab: Calcium (05/25/2018) + +-------+ + + + | Component | Value | Ref Range | Performed | Pathologist | | | | | At | Signature | + +-------+ + + + | Calcium, | 8.9 | | | | | External | | | | | + +-------+ + + + External Lab: Carbon Dioxide (05/25/2018) + +-------+ + + + | Component | Value | Ref Range | Performed | Pathologist | | | | | At | Signature | + +-------+ + + + | Carbon | 32 | | | | | Dioxide, | | | | | | External | | | | | + +-------+ + + + External Lab: Chloride (05/25/2018) + +-------+ + + + | Component | Value | Ref Range | Performed | Pathologist | | | | | At | Signature | + +-------+ + + + | Chloride, | 95 | | | | | External | | | | | + +-------+ + + + External Lab: Potassium (05/25/2018) + +-------+ + + + | Component | Value | Ref Range | Performed | Pathologist | | | | | At | Signature | + +-------+ + + + | Potassium, | 4.1 | | | | | External | | | | | + +-------+ + + + External Lab: Sodium (05/25/2018) + +-------+ + + + | Component | Value | Ref Range | Performed | Pathologist | | | | | At | Signature | + +-------+ + + + | Sodium, | 138 | | | | | External | | | | | + +-------+ + + + External Lab: B Type Naturetic Peptide (05/25/2018) + +-------+ + + + | Component | Value | Ref Range | Performed | Pathologist | | | | | At | Signature | + +-------+ + + + | B-Type | 345.7 | | | | | Naturetic | | | | | | Peptide, | | | | | | External | | | | | + +-------+ + + + + + | Specimen | + + | Blood | + + External Lab: eGFR (05/25/2018) + +-------+ + + + | Component | Value | Ref Range | Performed | Pathologist | | | | | At | Signature | + +-------+ + + + | eGFR, | 27 | | | | | External | | | | | + +-------+ + + + + + | Specimen | + + | Blood | + + External Lab: Creatinine (05/25/2018) + +-------+ + + + | Component | Value | Ref Range | Performed | Pathologist | | | | | At | Signature | + +-------+ + + + | Creatinine, | 2.4 | | | | | External | | | | | + +-------+ + + + + + | Specimen | + + | Blood | + + External Lab: CBC (05/10/2018) + +-------+ + + + | Component | Value | Ref Range | Performed | Pathologist | | | | | At | Signature | + +-------+ + + + | WBC, | 5.4 | | | | | External | | | | | + +-------+ + + + | HGB, | 15.2 | | | | | External | | | | | + +-------+ + + + | HCT, | 46.7 | | | | | External | | | | | + +-------+ + + + | PLT, | 106 | | | | | External | | | | | + +-------+ + + + | RBC, | 4.74 | | | | | External | | | | | + +-------+ + + + | MCV, | 99 | | | | | External | | | | | + +-------+ + + + | RDW, | 17.8 | | | | | External | | | | | + +-------+ + + + External Dave: RAUL (05/10/2018) + +-------+ + + + | Component | Value | Ref Range | Performed | Pathologist | | | | | At | Signature | + +-------+ + + + | BUN, | 53 | | | | | External | | | | | + +-------+ + + + External Lab: Glucose (05/10/2018) + +-------+ + + + | Component | Value | Ref Range | Performed | Pathologist | | | | | At | Signature | + +-------+ + + + | Glucose, | 87 | | | | | External | | | | | + +-------+ + + + External Lab: ALT (05/10/2018) + +-------+ + + + | Component | Value | Ref Range | Performed | Pathologist | | | | | At | Signature | + +-------+ + + + | ALT, | 21 | | | | | External | | | | | + +-------+ + + + External Lab: AST (05/10/2018) + +-------+ + + + | Component | Value | Ref Range | Performed | Pathologist | | | | | At | Signature | + +-------+ + + + | AST, | 42 | | | | | External | | | | | + +-------+ + + + External Lab: Alkaline Phosphatase (05/10/2018) + +-------+ + + + | Component | Value | Ref Range | Performed | Pathologist | | | | | At | Signature | + +-------+ + + + | ALP, | 203 | | | | | External | | | | | + +-------+ + + + External Lab: Bilirubin, Total (05/10/2018) + +-------+ + + + | Component | Value | Ref Range | Performed | Pathologist | | | | | At | Signature | + +-------+ + + + | Bilirubin, | 1.6 | | | | | Total, | | | | | | External | | | | | + +-------+ + + + External Lab: Albumin (05/10/2018) + +-------+ + + + | Component | Value | Ref Range | Performed | Pathologist | | | | | At | Signature | + +-------+ + + + | Albumin, | 3.5 | | | | | External | | | | | + +-------+ + + + External Lab: Protein, Total (05/10/2018) + +-------+ + + + | Component | Value | Ref Range | Performed | Pathologist | | | | | At | Signature | + +-------+ + + + | Protein, | 7.2 | | | | | Total, | | | | | | External | | | | | + +-------+ + + + External Lab: Calcium (05/10/2018) + +-------+ + + + | Component | Value | Ref Range | Performed | Pathologist | | | | | At | Signature | + +-------+ + + + | Calcium, | 8.8 | | | | | External | | | | | + +-------+ + + + External Lab: Carbon Dioxide (05/10/2018) + +-------+ + + + | Component | Value | Ref Range | Performed | Pathologist | | | | | At | Signature | + +-------+ + + + | Carbon | 30 | | | | | Dioxide, | | | | | | External | | | | | + +-------+ + + + External Lab: Chloride (05/10/2018) + +-------+ + + + | Component | Value | Ref Range | Performed | Pathologist | | | | | At | Signature | + +-------+ + + + | Chloride, | 99 | | | | | External | | | | | + +-------+ + + + External Lab: Potassium (05/10/2018) + +-------+ + + + | Component | Value | Ref Range | Performed | Pathologist | | | | | At | Signature | + +-------+ + + + | Potassium, | 4.1 | | | | | External | | | | | + +-------+ + + + External Lab: Sodium (05/10/2018) + +-------+ + + + | Component | Value | Ref Range | Performed | Pathologist | | | | | At | Signature | + +-------+ + + + | Sodium, | 141 | | | | | External | | | | | + +-------+ + + + External Lab: Ferritin (05/10/2018) + +-------+ + + + | Component | Value | Ref Range | Performed | Pathologist | | | | | At | Signature | + +-------+ + + + | Ferritin, | 104.8 | | | | | External | | | | | + +-------+ + + + External Lab: B Type Naturetic Peptide (05/10/2018) + +-------+ + + + | Component | Value | Ref Range | Performed | Pathologist | | | | | At | Signature | + +-------+ + + + | B-Type | 422 | | | | | Naturetic | | | | | | Peptide, | | | | | | External | | | | | + +-------+ + + + + + | Specimen | + + | Blood | + + External Lab: eGFR (05/10/2018) + +-------+ + + + | Component | Value | Ref Range | Performed | Pathologist | | | | | At | Signature | + +-------+ + + + | eGFR, | 27 | | | | | External | | | | | + +-------+ + + + + + | Specimen | + + | Blood | + + External Lab: Creatinine (05/10/2018) + +-------+ + + + | Component | Value | Ref Range | Performed | Pathologist | | | | | At | Signature | + +-------+ + + + | Creatinine, | 2.4 | | | | | External | | | | | + +-------+ + + + + + | Specimen | + + | Blood | + + External Lab: BUN (12/15/2015) + +-------+ + + + | Component | Value | Ref Range | Performed | Pathologist | | | | | At | Signature | + +-------+ + + + | BUN, | 68 | | | | | External | | | | | + +-------+ + + + External Lab: Glucose (12/15/2015) + +-------+ + + + | Component | Value | Ref Range | Performed | Pathologist | | | | | At | Signature | + +-------+ + + + | Glucose, | 85 | | | | | External | | | | | + +-------+ + + + External Lab: ALT (12/15/2015) + +-------+ + + + | Component | Value | Ref Range | Performed | Pathologist | | | | | At | Signature | + +-------+ + + + | ALT, | 19 | | | | | External | | | | | + +-------+ + + + External Lab: AST (12/15/2015) + +-------+ + + + | Component | Value | Ref Range | Performed | Pathologist | | | | | At | Signature | + +-------+ + + + | AST, | 29 | | | | | External | | | | | + +-------+ + + + External Lab: Alkaline Phosphatase (12/15/2015) + +-------+ + + + | Component | Value | Ref Range | Performed | Pathologist | | | | | At | Signature | + +-------+ + + + | ALP, | 94 | | | | | External | | | | | + +-------+ + + + External Lab: Bilirubin, Total (12/15/2015) + +-------+ + + + | Component | Value | Ref Range | Performed | Pathologist | | | | | At | Signature | + +-------+ + + + | Bilirubin, | 0.8 | | | | | Total, | | | | | | External | | | | | + +-------+ + + + External Lab: Albumin (12/15/2015) + +-------+ + + + | Component | Value | Ref Range | Performed | Pathologist | | | | | At | Signature | + +-------+ + + + | Albumin, | 3.4 | | | | | External | | | | | + +-------+ + + + External Lab: Protein, Total (12/15/2015) + +-------+ + + + | Component | Value | Ref Range | Performed | Pathologist | | | | | At | Signature | + +-------+ + + + | Protein, | 6.6 | | | | | Total, | | | | | | External | | | | | + +-------+ + + + External Lab: Calcium (12/15/2015) + +-------+ + + + | Component | Value | Ref Range | Performed | Pathologist | | | | | At | Signature | + +-------+ + + + | Calcium, | 8.7 | | | | | External | | | | | + +-------+ + + + External Lab: Carbon Dioxide (12/15/2015) + +-------+ + + + | Component | Value | Ref Range | Performed | Pathologist | | | | | At | Signature | + +-------+ + + + | Carbon | 28 | | | | | Dioxide, | | | | | | External | | | | | + +-------+ + + + External Lab: Chloride (12/15/2015) + +-------+ + + + | Component | Value | Ref Range | Performed | Pathologist | | | | | At | Signature | + +-------+ + + + | Chloride, | 102 | | | | | External | | | | | + +-------+ + + + External Lab: Potassium (12/15/2015) + +-------+ + + + | Component | Value | Ref Range | Performed | Pathologist | | | | | At | Signature | + +-------+ + + + | Potassium, | 4.5 | | | | | External | | | | | + +-------+ + + + External Lab: Sodium (12/15/2015) + +-------+ + + + | Component | Value | Ref Range | Performed | Pathologist | | | | | At | Signature | + +-------+ + + + | Sodium, | 139 | | | | | External | | | | | + +-------+ + + + External Lab: eGFR (12/15/2015) + +-------+ + + + | Component | Value | Ref Range | Performed | Pathologist | | | | | At | Signature | + +-------+ + + + | eGFR, | 39 | | | | | External | | | | | + +-------+ + + + + + | Specimen | + + | Blood | + + External Lab: Creatinine (12/15/2015) + +-------+ + + + | Component | Value | Ref Range | Performed | Pathologist | | | | | At | Signature | + +-------+ + + + | Creatinine, | 1.7 | | | | | External | | | | | + +-------+ + + + + + | Specimen | + + | Blood | + + documented in this encounter Visit Diagnoses Not on filedocumented in this encounter"
--- OUTSIDE RECORDS SUMMARY | ~2019-07-14 | XMS | Encounter Summary ---
Demographics + + + | Address | [address] | | | [place] [address] | + + + | Home Phone | | + + + | Preferred Language | Unknown | + + + | Marital Status | | + + + | Muslim Affiliation | 1041 | + + + | Race | Unknown | + + + | Ethnic Group | Unknown | + + + Author + + + | Author | [facility] | | | and [place] | + + + | Organization | [facility] | | | and [place] | + + + | Address | Unknown | + + + | Phone | Unavailable | + + + Support + + + + + | Name | Relationship | Address | Phone | + + + + + | Lula Kerr | ECON | [address] | | | | | [place] | | | | | [address] | | + + + + + Care Team Providers + +------+ + | Care Shoe Parts Molder Name | Role | Phone | + +------+ + | Gregory Drummond MD | PCP | | + +------+ + Reason for Visit + + + | Reason | Comments | + + + | Device Check | ICD in office with Bebe | | (In-office) | | + + + Evaluate & Treat (Routine) +--------+--------+ + + + + | Status | Reason | Specialty | Diagnoses / | Referred By | Referred To | | | | | Procedures | Contact | Contact | +--------+--------+ + + + + | Closed | | Cardiology | Diagnoses | Bebe, | Ramesh | | | | | [place] w/ | Sheldon | Cardiology | | | | | Bebe. | MD Paul | Mp | | | | | Procedures | [address] | | | | | CARD DEVICE | [address] | | | | | | [address] | [address], [address] | [place], [place] | | | | | | [place], | [address] | | | | | | [place] [address] | Phone: | | | | | | Phone: | [phone] | | | | | | [phone] | Fax: | | | | | | Fax: | [phone] | | | | | | [phone] | | +--------+--------+ + + + + Encounter Details +--------+ + + + + | Date | Type | Department | Care Team | Description | +--------+ + + + + | 03/21/ | Procedure | [facility] | | AICD (automatic | | 2019 | visit | CARDIOLOGY [place] | | cardioverter/defibri | | | | [address] | | llator) present | | | | [place], [place] | | (Primary Dx); | | | | [address] | | Ischemic | | | | [phone] | | cardiomyopathy; Left | | | | | | bundle branch block | | | | | | (LBBB); Persistent | | | | | | atrial fibrillation | | | | | | (HCC) | +--------+ + + + + Social [...] 2018 | Visit | | DO Rolan [address] [place] [address] | | | | | | [address] | | | | | | [place] | | | | | | [address] | | | | | | | | +--------+ + + + + | 09/25/ | Office | Cardiology | Sheldon Spence | | | 2019 | Visit | | MD Paul [address] | | | | | | [address] | | | | | | [place] | | | | | | [address] | | | | | | | [...] [place] | | | | | | [address] | | | | | | | | +--------+ + + + + documented as of this encounter Procedures + +--------+ + + + | Procedure Name | Priori | Date/Time | Associated Diagnosis | Comments | | | ty | | | | + +--------+ + + + | DEVICE INTERROGATION | Routin | 03/21/2019 | AICD (automatic | Results for this | | | e | 3:15 PM | cardioverter/defibri | procedure are in the | | | | PDT | llator) present | results section. | | | | | Ischemic | | | | | | cardiomyopathy Left | | | | | | bundle branch block | | | | | | (LBBB) Persistent | | | | | | atrial fibrillation | | | | | | (HCC) | | + +--------+ + + + documented in this encounter Results Device Interrogation (03/21/2019 3:15 PM PDT) + + + | Narrative | Performed At | + + + | Sandra Parker, Culinary Specialist 03/22/2019 9:19 Device | [facility] | | interrogation done by Sangeetha Spence Any events or changes listed in | | | office note. See device data attached to scheduled encounter for | | | additional details. linoleum printer: Sandra Parker, Device Clinic Tech | | + + + + +---------+ + + | Performing | Address | City/State/Zipcode | Phone Number | | Organization | | | | + +---------+ + + | [facility] | | | | + +---------+ + + documented in this encounter Visit Diagnoses + + | Diagnosis | + + | AICD (automatic cardioverter/defibrillator) present - Primary Automatic implantable | | cardiac defibrillator in situ | + + | [...]
--- OUTSIDE RECORDS SUMMARY | ~2019-07-14 | XMS | Encounter Summary ---
Demographics + + + | Address | [address] | | | [place] [address] | + + + | Home Phone | | + + + | Preferred Language | Unknown | + + + | Marital Status | | + + + | Congregation Affiliation | 1041 | + + + | Race | Unknown | + + + | Ethnic Group | Unknown | + + + Author + + + | Author | [facility] | | | and [place] | + + + | Organization | [facility] | | | and [place] | + + + | Address | Unknown | + + + | Phone | Unavailable | + + + Support + + + + + | Name | Relationship | Address | Phone | + + + + + | Lula Kerr | ECON | [address] | | | | | [place] | | | | | [address] | | + + + + + Care Team Providers + +------+ + | Care Net Making Supervisor Name | Role | Phone | + +------+ + | Gregory Drummond MD | PCP | | + +------+ + Reason for Visit + + + | Reason | Comments | + + + | Discharge Planning | | + + + Encounter Details +--------+ + + + + | Date | Type | Department | Care Team | Description | +--------+ + + + + | 07/08/ | Telephone | [facility] | Angelito Hernandes MD | Discharge Planning | | 2018 | | MEDICINE [address] | [address] [facility] | | | | | [facility] | [place] | | | | | [place] [address] | [id number] | | | | | [phone] | | | +--------+ + + + [...] | Visit | | DO Rolan [address] [place] [address] | | | | | | [address] | | | | | | [place] | | | | | | [address] | | | | | | | | +--------+ + + + + | 09/25/ | Office | Cardiology | Sheldon Spence | | | 2019 | Visit | | MD Paul [address] | | | | | | [address] | | | | | | [place] | | | | | | [address] | | | | | | | [...] [place] | | | | | | [address] | | | | | | | | +--------+ + + + + documented as of this encounter Visit Diagnoses Not on filedocumented in this encounter"
--- OUTSIDE RECORDS SUMMARY | ~2019-07-14 | XMS | Encounter Summary ---
Demographics + + + | Address | [address] | | | [place] [address] | + + + | Home Phone | | + + + | Preferred Language | Unknown | + + + | Marital Status | | + + + | Congregational Affiliation | 1041 | + + + [...] + | Lula Kerr | ECON | [address] | | | | | [place] | | | | | [address] | | + + + + + Care Team Providers + +------+ + | Care Hall Cleaner Name | Role | Phone | + +------+ + | Gregory Drummond MD | PCP | | + +------+ + Encounter Details +--------+ + + + + | Date | Type | Department | Care Team | Description | +--------+ + + + + | 09/16/ | Anesthesia | [facility] | Jose Drake MD | | | 2015 | Event | [facility] | [address] | | | | | [address] | [place] | | | | | [place] | [address] | | | | | [address] | | | | | | [phone] | | | +--------+ + + + + Anesthesia Record + + + + + | Procedure Name | Responsible | Anesthesia Start | Anesthesia Stop Time | | | Anesthesiologist | Time | | + + + + + | Left Cataract | Jose Drake MD | 09/16/14 1007 | 09/16/14 1058 | | Extraction w/ IOL | | | | | Implant (Left Eye) | | | | + + + + + +----+---+ + + | Da | T | Event | Comment | | te | i | | | | | m | | | | | e | | | +----+---+ + + | 02 | 1 | | | | /2 | 0 | | | | 3/ | 0 | | | | 20 | 3 | | | | 15 | | | | +----+---+ + + | | 1 | An Checkout | Pre-use anesthesia machine/equipment checkout. | | | 0 | | | | | 0 | | | | | 5 | | | +----+---+ + + | | 1 | An Start | Reassessment prior to anesthesia induction/procedure. | | | 0 | | | | | 0 | | | | | 7 | | | +----+---+ + + | | 1 | AN | Per surgeon request | | | 0 | Antibiotic | | | | 0 | declined | | | | 8 | | | +----+---+ + + | | 1 | Preoxygenat | | | | 0 | ed | | | | 1 | | | | | 0 | | | +----+---+ + + | | 1 | An | | | | 0 | Induction | | | | 1 | | | | | 1 | | | +----+---+ + + | | 1 | An | | | | 0 | Intubation | | | | 1 | | | | | 2 | | | +----+---+ + + | | 1 | Breathing | | | | 0 | Spontaneous | | | | 5 | ly | | | | 0 | | | +----+---+ + + | | 1 | an stop | | | | 0 | data | | | | 5 | | | | | 0 | | | +----+---+ + + | | 1 | An Stop | Patient handed off to recovery nurse. | | | 5 | | | | | 8 | | | +----+---+ + + +------+ | Meds | +------+ + +---------+ | Name | Total | + +---------+ | fentaNYL | 100 mcg | + +---------+ | propofol | 120 mg | + +---------+ | lidocaine 2% | 60 mg | + +---------+ | phenylephrine | 500 mcg | + +---------+ | ketamine | 50 mg | + +---------+ | lactated ringers (LR) infusion | 700 mL | + +---------+ + + | Name | + + [...] Removal | +--------+ + + + | [READ | 09/16/14; 832; Coagulation, | 09/16/14 0833 by | 09/16/14 1245 by | | ONLY] | Other (see comment) (blood | [place] | Harmony Muniz RN | | | sugar); healing within | | | | Periph | expectations; 09/16/14; 1245 | | | | eral | | | | | IV - | | | | | Single | | | | | Lumen | | | | | | | | | +--------+ + + + | Airway | Placement Date: 09/16/14; | 09/16/14 1012 by | 09/16/14 1101 by | | | Placement Time: 1012; Mask | Jose Drake MD | [place], | | | Ventilation: EZ; Airway Grade: | | RN | | | II; Attempts: 1; Airway Type: | | | | | laryngeal mask, cuffed, | | | | | non-disposable; Size: 4; Trauma: | | | | | none; Placed By: | | | | | Anesthesiologist; Removal: per | | | | | protocol, removed by RN; Removal | | | | | Date: 09/16/14; Removal Time: | | | | | 1101 | | | +--------+ + + + [...] | Visit | | DO Rolan [address] | | | | | | [address] | | | | | | [place] | | | | | | [address] | | | | | | | | +--------+ + + + + | 09/25/ | Office | Cardiology | Sheldon Spence | | | 2019 | Visit | | MD [address] | | | | | | [address] | | | | | | [place] | | | | | | [address] | | | | | | | [...] [place] | | | | | | [address] | | | | | | | | +--------+ + + + + documented as of this encounter Visit Diagnoses Not on filedocumented in this encounter Administered Medications + +--------+ +--------+------+------+ | Medication Order | MAR | Action | Dose | Rate | Site | | | Action | Date | | | | + +--------+ +--------+------+------+ | fentaNYL injection | Given | 09/16/19 | 25 mcg | | | | Intravenous, PRN, Pain, Starting | | 15 10:43 | | | | | 09/16/14 at 1009, Anesthesia | | AM PST | | | | | Intra-op | | | | | | + +--------+ +--------+------+------+ +-------+ +--------+---+---+ | Given | 09/16/19 | 25 mcg | | | | | 15 10:23 | | | | | | AM PST | | | | +-------+ +--------+---+---+ | Given | 09/16/19 | 50 mcg | | | | | 15 10:09 | | | | | | AM PST | | | | +-------+ +--------+---+---+ +---+---+ | | | +---+---+ + +-------+ +-------+---+---+ | ketamine 50 mg/mL injection | Given | 09/16/19 | 12 mg | | | | PRN, Starting 09/16/14 at | | 15 10:43 | | | | | 1009, Anesthesia Intra-op | | AM PST | | | | + +-------+ +-------+---+---+ +-------+ +-------+---+---+ | Given | 09/16/19 | 13 mg | | | | | 15 10:23 | | | | | | AM PST | | | | +-------+ +-------+---+---+ | Given | 09/16/19 | 25 mg | | | | | 15 10:09 | | | | | | AM PST | | | | +-------+ +-------+---+---+ +---+---+ | | | +---+---+ + +-------+ +-------+---+---+ | lidocaine (PF) 2% injection | Given | 09/16/19 | 20 mg | | | | Intravenous, PRN, Starting Mon | | 15 10:12 | | | | | 09/16/14 at 1011, Anesthesia | | AM PST | | | | | Intra-op | | | | | | + +-------+ +-------+---+---+ +-------+ +-------+---+---+ | Given | 09/16/19 | 40 mg | | | | | 15 10:11 | | | | | | AM PST | | | | +-------+ +-------+---+---+ +---+---+ | | | +---+---+ + +-------+ +---------+---+---+ | phenylephrine (KELSEY-SYNEPHRINE) | Given | 09/16/19 | 200 mcg | | | | 10 mg/mL injection Intravenous, | | 15 10:36 | | | | | PRN, Starting 09/16/14 at | | AM PST | | | | | 1018, Anesthesia Intra-op | | | | | | + +-------+ +---------+---+---+ +-------+ +---------+---+---+ | Given | 09/16/19 | 200 mcg | | | | | 15 10:26 | | | | | | AM PST | | | | +-------+ +---------+---+---+ | Given | 09/16/19 | 100 mcg | | | | | 15 10:18 | | | | | | AM PST | | | | +-------+ +---------+---+---+ +---+---+ | | | +---+---+ + +-------+ +-------+---+---+ | propofol (DIPRIVAN) injection | Given | 09/16/19 | 40 mg | | | | Intravenous, PRN, Starting Mon | | 15 10:12 | | | | | 09/16/14 at 1011, Anesthesia | | AM PST | | | | | Intra-op | | | | | | + +-------+ +-------+---+---+ +-------+ +-------+---+---+ | Given | 09/16/19 | 80 mg | | | | | 15 10:11 | | | | | | AM PST | | | | +-------+ +-------+---+---+ +---+---+ | | | +---+---+ documented in this encounter"
--- OUTSIDE RECORDS SUMMARY | ~2019-07-14 | XMS | Encounter Summary ---
Demographics + + + | Address | [address] | | | [place] [address] | + + + | Home Phone | | + + + | Preferred Language | Unknown | + + + | Marital Status | | + + + | Samaritan Affiliation | 1041 | + + + | Race | Unknown | + + + | Ethnic Group | Unknown | + + + Author + + + | Author | [facility] | | | and [place] | + + + | Organization | [facility] | | | and [place] | + + + | Address | Unknown | + + + | Phone | Unavailable | + + + Support + + + + + | Name | Relationship | Address | Phone | + + + + + | Lula Kerr | ECON | [address] | | | | | [place] | | | | | [address] | | + + + + + Care Team Providers + +------+ + | Care Slicing Machine Feeder Name | Role | Phone | + +------+ + PCP | Unavailable | + +------+ + Encounter Details +--------+ + + + + | Date | Type | Department | Care Team | Description | +--------+ + + + + | 02/20/ | Hospital | [facility] | Raheel Gomez | Syncope and Collapse | | 2006 - | Encounter | [facility] | [address] | | | | | [address] | Aaron Mckeon | | | 02/21/ | | [address] | [place] [address] | | | 2006 | | [place], [place] | [phone] | | | | | [address] | | | | | | [phone] | | | +--------+ + + + + Social History + +-------+ +--------+------+ | Tobacco Use | Types | Packs/Day | Years | Date | | | | | Used | | + +-------+ +--------+------+ | Never Assessed | | | | | + +-------+ +--------+------+ + + + | Sex Assigned at [...] | Visit | | [address] | | | | | | [address] | | | | | | [place] | | | | | | [address] | | | | | | | | +--------+ + + + + | 09/25/ | Office | Cardiology | Sheldon Spence | | | 2019 | Visit | | [address] | | | | | | [place] [address] | | | | | | [place] | | | | | | [address] | | | | | | | [...] [place] | | | | | | [address] | | | | | | | | +--------+ + + + + documented as of this encounter Visit Diagnoses + + | Diagnosis | + + | Syncope and collapse | + + documented in this encounter"
--- OUTSIDE RECORDS SUMMARY | ~2019-07-14 | XMS | Encounter Summary ---
Demographics + + + | Address | [address] | | | [place] [address] | + + + | Home Phone | | + + + | Preferred Language | Unknown | + + + | Marital Status | | + + + | Taoism Affiliation | 1041 | + + + | Race | Unknown | + + + | Ethnic Group | Unknown | + + + Author + + + | Author | [facility] | | | and [place] | + + + | Organization | [facility] | | | and [place] | + + + | Address | Unknown | + + + | Phone | Unavailable | + + + Support + + + + + | Name | Relationship | Address | Phone | + + + + + | Lula Kerr | ECON | [address] | | | | | [place] | | | | | [address] | | + + + + + Care Team Providers + +------+ + | Care Furniture Stainer Name | Role | Phone | + +------+ + PCP | Unavailable | + +------+ + Encounter Details +--------+ + + + + | Date | Type | Department | Care Team | Description | +--------+ + + + + | 01/31/ | Hospital | [facility] | | | | 2001 - | Encounter | MED CTR GENERIC IP | | | | | | CONV DEPT [address] | | | | 02/01/ | | [place], | | | | 2001 | | [place] [address] | | | | | | [phone] | | | +--------+ + + + [...] | Visit | | [address] | | | | | | [place] | | | | | | [place] | | | | | | [address] | | | | | | | | +--------+ + + + + | 09/25/ | Office | Cardiology | Sheldon Spence | | | 2019 | Visit | | [address] | | | | | | [address] | | | | | | [place] | | | | | | [id number] | | | | | | | [...] [place] | | | | | | [address] | | | | | | | | +--------+ + + + + documented as of this encounter Visit Diagnoses Not on filedocumented in this encounter"
--- OUTSIDE RECORDS SUMMARY | ~2019-07-14 | XMS | Encounter Summary ---
Demographics + + + | Address | [address] | | | [place] [address] | + + + | Home Phone | | + + + | Preferred Language | Unknown | + + + | Marital Status | | + + + | Baptism Affiliation | 1041 | + + + | Race | Unknown | + + + | Ethnic Group | Unknown | + + + Author + + + | Author | [facility] | | | and [place] | + + + | Organization | [facility] | | | and [place] | + + + | Address | Unknown | + + + | Phone | Unavailable | + + + Support + + + + + | Name | Relationship | Address | Phone | + + + + + | Lula Kerr | ECON | [address] | | | | | [place] | | | | | [address] | | + + + + + Care Team Providers + +------+ + | Care Med Surg Nurse Name | Role | Phone | + [...] | | | | Fracture of | [place], [place] | [place], | | | | | vertebra due | [address] [place] | [place] [address] | | | | | to | [place], [place] | Phone: | | | | | osteoporosis | [address] | [phone] | | | | | , initial | Phone: | Fax: | | | | | encounter | [phone] | [phone] | | | | | (HCC) Type | Fax: | | | | | | 2 diabetes | [phone] | | | | | | mellitus [...] | Paraspinal | Maty M, | [address] [place] | | | | | mass | [address] | [place], | | | | | Procedures | [place], [place] | [place] [address] | | | | | CT Guided | [address] [place] | Phone: | | | | | Biopsy Lung | [place], [place] | [phone] | | | | | [place] | [address] | Fax: | | | | | Mediastinum | Phone: | [phone] | | | | | DOS | [phone] | | | | | | 07/12/19 @ | Fax: | | | | | | 100PM | [phone] | | +--------+--------+ + + + + [...] | | [address] | [place] | | | | | [place], [place] | [place], [place] | | | | | [address] | [address] | | | | | [phone] | | | +--------+---------+ + + + [...] diabetic glomerulosclerosis, on thrice weekly HD, at [facility] in [place], [place]. 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 I discussed CT guided Bx of this with Radiology, on 07/03/19, and they preferred that nancy Cottrell. I then, spoke to Dr. Paul Nielson, N/S, who kindly agreed to arrange an open Needle BX , outpt on 07/06/19. I spoke to early childhood education coordinator, at [facility] [place], yesterday. He will be dialyzed heparin free [...] "[employer]" the dedicated EMR for [facility] [employer] [employer] [facility] [place]. Will obtain paper copies of those to be scanned into [employer]. I greatly Appreciate Dr. Nielson's help with David' case. : Gregory Nielson MD [facility], [place], [place]. documented in thi s encounter Plan of Treatment +--------+ + + + + | Date | Type | Specialty | Care Team | Description | +--------+ + + + + | 07/16/ | Off-Site | Nephrology | Maty Tian | | | 2019 | Visit | | [address] | | | | | | [place] | | | | | | [place] | | | | | | [address] | | | | | | | | +--------+ + + + + | 09/25/ | Office | Cardiology | Sheldon Spence | | | 2019 | Visit | | [address] | | | | | | [place] | | | | | | [place] | | | | | | [address] | | | | | | | [...] [place] | | | | | | [address] | | | | | | | [...] encounter | | | | | | ([facility]) 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
--- OUTSIDE RECORDS SUMMARY | ~2019-07-14 | XMS | Encounter Summary ---
Demographics + + + | Address | [address] | | | [place] [address] | + + + | Home Phone | | + + + | Preferred Language | Unknown | + + + | Marital Status | | + + + | Lutheran Affiliation | [id number] | + + + | Race | Unknown | + + + | Ethnic Group | Unknown | + + + Author + + + | Author | [facility] | | | and [place] | + + + | Organization | [facility] | | | and [place] | + + + | Address | Unknown | + + + | Phone | Unavailable | + + + Support + + + + + | Name | Relationship | Address | Phone | + + + + + | Lula Kerr | ECON | [address] | | | | | [place] | | | | | [address] | | + + + + + Care Team Providers + +------+ + | Care Button And Buckle Maker Name | Role | Phone | + +------+ + | Gregory Drummond MD | PCP | | + +------+ + Reason for Visit + + + | Reason | Comments | + + + | Leg Wound | | + + + | Shortness of Breath | | + + + Auth/Cert +--------+--------+ [...] | | | | | | | ([facility]) Acute | | | | | | [...] | | | | | | | ([facility]) | | | | | | | | | | +--------+--------+ + + + + Encounter Details +--------+ + + + + | Date | Type | Department | Care Team | Description | +--------+ + + + + | 06/26/ | Hospital | [facility] | [place], | Pneumonia of right | | 2018 - | Encounter | MED [facility] SUR[facility] | Gomez Batres MD [address] | lower lobe due to | | | | [address] [place] | [address] [place] | infectious organism | | 07/08/ | | [place] [address] | [place] [address] | ([facility]) (Primary Dx); | | 2018 | | [phone] | [phone] | Acute renal failure | | | | | | with acute tubular | | | | | [place], [place], | necrosis | | | | | [address] | superimposed on | | | | | [place], [place] | chronic kidney | | | | | [address] | disease, unspecified | | | | | | CKD stage ([facility]); | | | | | Chava Werner, DO | Hyponatremia; | | | | | [address] | Hypoxemia; Pneumonia | | | | | [place], [place] | due to infectious | | | | | [address] | organism, | | | | | | unspecified | | | | | | laterality, | | | | | | unspecified part of | | | | | | lung; | | | | | | Hyperphosphatemia; | | | | | | Sepsis, due to | | | | | | unspecified organism | | | | | | ([facility]); Acute kidney | | | | | | injury superimposed | | | | | | on chronic kidney | | | | | | disease (HCC); Type | | | | | | 2 diabetes mellitus | | | | | | with stage 4 chronic | | | | | | kidney disease, | | | | | | without long-term | | | | | | current use of | | | | | | insulin (HCC); Acute | | | | | | respiratory failure | | | | | | with hypoxia (HCC); | | | | | | Acute on chronic | | | | | | systolic heart | | | | | | failure (HCC); Acute | | | | | | metabolic | | | | | | encephalopathy; | | | | | | Delirium; Palliative | | | | | | care by specialist; | | | | | | Goals of care, | | | | | | counseling/discussio | | | | | | n; Confusion; | | | | | | Hypoxia; Anemia, | | | | | | unspecified type | +--------+ + + + + Social [...] + + + | Blood Pressure | 125/68 | 07/08/2018 7:28 AM | | | | | PST | | + + + + + | Pulse | 70 | 07/08/2018 10:00 AM | | | | | PST | | + + + + + | Temperature | 35.6 C (96.1 F) | 07/08/2018 7:28 AM | | | | | PST | | + + + + + | Respiratory Rate | 18 | 07/08/2018 10:00 AM | | | | | PST | | + + + + + | Oxygen Saturation | 95% | 07/08/2018 10:00 AM | | | | | PST | | + + + + + | Inhaled Oxygen | - | - | | | Concentration | | | | + + + + + | Weight | 114.6 kg (252 lb | 07/04/2018 3:12 AM | | | | 10.4 oz) | PST | | + + + + + | Height | 170.2 cm (5' 7") | 06/26/2018 1:20 PM | | | | | PST | | + + + + + | Body Mass Index | 39.57 | 06/26/2018 1:20 PM | | | | | PST | | + + + + + documented in this encounter Discharge Summaries Bruce Alcantar MD - 07/08/2018 11:33 AM PSTFormatting of this note might be different f rom the original. DISCHARGE SUMMARY Patient Name: David Kerr Jr. : 1945 Date of Admission: 06/26/2018 Date of Discharge: 07/08/18 Admitting Physician: Mabel Jaimes MD Discharging Physician: Bruce Alcantar MD Primary Care Provider: Gregory Drummond MD Discharge Diagnoses: Principal Problem: Severe sepsis with septic shock Active Problems: Pneumonia due to infectious organism Cellulitis of left lower extremity Acute kidney injury superimposed on chronic kidney disease Type 2 diabetes mellitus with stage 4 chronic kidney disease, without long-term current u se of insulin Obesity, morbid Acute metabolic encephalopathy Acute on chronic systolic heart failure Resolved Problems: * No resolved hospital problems. * Patient Active Problem List Diagnosis Obesity, morbid Diabetes type 2, controlled Chest pain with high risk for cardiac etiology Pneumonia due to infectious organism Severe sepsis with septic shock Cellulitis of left lower extremity Acute kidney injury superimposed on chronic kidney disease Type 2 diabetes mellitus with stage 4 chronic kidney disease, without long-term current use of insulin Acute metabolic encephalopathy Acute on chronic systolic heart failure Consultants: Dr. Silvina Alcantar of nephrology Dr. [place]/Dr. Hunt of general surgery Procedures: 06/26 CXR: FINDINGS: Portable frontal chest radiograph. Lungs: Mild prominence of the central pulmonary vasculature and interstitial lung markings. Asymmetric opacities are noted at the right lung base. No pleural effusion or pneumothorax. Heart/mediastinum: Stable cardiomegaly. Left chest cardiac pacer device is stable. Median sternotomy changes. Bones: No acute osseous abnormality appreciated. IMPRESSION - Stable cardiomegaly with mild pulmonary edema. Focal airspace opacities at the right lung base may represent atelectasis, although, pneumonia is also a consideration. 06/26 Vas lower extremity: IMPRESSION - No evidence of DVT. 06/26 Ultrasound abdomen: LIVER: Size: Hepatomegaly measuring up to 21.9 cm. Echogenicity: Normal. Surface nodularity: None. Mass (size and location): None. Portal Vein: Hepatopedal flow. BILE DUCTS: Intrahepatic ducts: Normal. Common bile duct diameter: 5 mm GALLBLADDER: Gallstones: No definite stones identified. Gallbladder sludge: Heterogeneous sludge. Gallbladder wall thickening: The gallbladder is contracted and the wall measures up to 4 mm. Pericholecystic fluid: None. Sonographic Gruber sign: Absent. PANCREAS: Pancreatic duct measures 3 mm in diameter, upper limits of normal. Imaged pancreas is without evidence of mass lesion. SPLEEN: Borderline splenomegaly measuring 12.2 cm. RIGHT KIDNEY: Hydronephrosis: None. Calcification: None. Mass: None. Size: 12.6 cm in long axis LEFT KIDNEY: Hydronephrosis: None. Calcification: None. Mass: None. Size: 12.1 cm in long axis ABDOMINAL AORTA: Visualized portions are normal. ASCITES: Minimal IMPRESSION - Sludge within the contracted gallbladder with expected mild wall thickening. No other findings to suggest acute cholecystitis. Mild hepatomegaly and borderline splenomegaly. 06/28 CT Head: FINDINGS: BRAIN: There is moderate cerebral and cerebellar atrophy. There is associated appropriate prominence of the ventricles. No areas of increased attenuation to suggest intracranial hemorrhage. There is no mass, mass effect, or midline shift. There are no abnormal extra-axial fluid or air collections. There is preservation of the caballero-white differentiation at this time. There is moderate patchy to confluent decreased density in the periventricular and subcortical white matter. Hypodensities in the basal ganglia likely represent lacunar infarcts. Heavy calcified disease in the cavernous carotids and posterior circulation. SCALP/ CALVARIUM: The scalp and skull are intact and are unremarkable. SINUSES / ORBITS/ MASTOIDS: The visible mastoid air cells and paranasal sinuses are clear. The globes and retroconal contents are intact and are unremarkable. IMPRESSION - No CT evidence for an acute intracranial process. No intracranial mass or mass effect. Moderate white matter disease and evidence of remote basal ganglia lacunar Infarcts. 07/03 CXR: FINDINGS: Lines and tubes are stable. Median sternotomy wires are once again seen, many of which are fractured. Heart is enlarged. Diffuse thickening of the central bronchovascular markings. Minimal bibasilar atelectasis. No evidence of pneumothorax. No acute osseous abnormality. Remote fracture deformities of the ribs. IMPRESSION - New right internal jugular approach dual-lumen central catheter tip terminates in the upper/mid right atrium. Cardiomegaly. Findings are suggestive of mild diffuse interstitial pulmonary edema. No results found. Labs in the last 24 hours: Recent Results (from the past 24 hour(s)) POC Glucose Result Value Ref Range Glucose, POC 180 (H) 70 - 109 mg/dL POC Glucose Result Value Ref Range Glucose, POC 152 (H) 70 - 109 mg/dL POC Glucose Result Value Ref Range Glucose, POC 118 (H) 70 - 109 mg/dL Extra Lavender Top Tube Result Value Ref Range Extra Lavender Top Tube Done Renal Function Panel Result Value Ref Range Na 136 136 - 149 mmol/L K 4.8 3.5 - 5.1 mmol/L Cl 102 98 - 109 mmol/L CO2 27 24 - 31 mmol/L Anion Gap 7 3 - 16 mmol/L Glucose 123 (H) 70 - 109 mg/dL BUN 52 (H) 7 - 18 mg/dL Creatinine 1.99 (H) 0.60 - 1.30 mg/dL eGFR if not 33 (L) >=60 mL/min/1.73m2 Ca 8.8 8.3 - 10.5 mg/dL Albumin 2.7 (L) 3.2 - 5.0 g/dL Phosphorus 3.9 2.5 - 4.6 mg/dL BUN/Creatinine Ratio 26.1 POC Glucose Result Value Ref Range Glucose, POC 195 (H) 70 - 109 mg/dL Reason for Admission: Please refer to the H&P for full details. In short, this is a 72 y.o. male with a history of diabetes, CKD4, chronic systolic heart failure, who presented with pneumonia, acute respi ratory failure with hypoxia, acute on chronic kidney disease with ATN. Problem-Oriented Hospital Course: Acute kidney injury superimposed on CKD IV - Baseline CKD4, arrived with BUN 166, Cr 7.03 on 06/26, with uremic symptoms, had ATN, like ly due to sepsis - Dialysis cath placed in left femoral on 06/28,Dialysis started on 06/28. - On 07/03, Right IJ hemodialysis Permacath placed - UOP improving somewhat, up to 250 per shift at discharge while on IV furosemide - Will continue dialysis, planned f/u at [place] dialysis unit, unclear if he will ever recover enough renal function to come off dialysis again (had very advanced renal disease b efore this episode) - 1.2 L fluid restriction, 2 L fluid restriction - Furosemide 160 mg bid at discharge per nephrology recs Pneumonia due to infectious organism/Acute respiratory failure with hypoxia and hypercapnia /EVITA - Had septic shock on arrival, hypotensive, procalcitonin of 52, started on norepi on arr ival, but has been off since 06/30 - Completed course of ceftriaxone/azithromycin - Sputum culture negative/respiratory virus panel neg - Remains hypoxic, but down from 5 to 2 L, CXR shows some pulmonary edema, dialysis to cont inue removing fluid - Blood cultures neg - Resolved Acute metabolic encephalopathy/Anisorcoria - Improving daily. Multifactorial from hypercapnia, sepsis, and uremia. CT head without acu te process, but with old infarct. Patient does have a hx of cataract surgery, and has anisoc oria Cellulitis left knee versus prepatellar bursitis: Resolving. - stopped doxycycline at discharge Chronic systolic heart failure with acute exacerbation - Acute exacerbation from fluid overload. His EF is 35% at baseline based on 06/16 Echo wit h some pulmonary hypertension, although this may have been partly due to left heart failure - Continue to monitor his input and output and daily weight - dialysis as above - Restarted carvedilol 07/04, titrated up to 6.25 mg bid at discharge Uncontrolled type II diabetes mellitus - BS usually in the 100's, may be rising with increased intake - Restart glimepiride - ISS Elevated TRANSAMINASES: Mild elevation on arrival which has resolved, likely due to congestive hepatopathy/sepsis Thrombocytopenia Stable at 119 Acute hyponatremia - Resolved, Na 136 at discharge Morbid obesity with a BMI greater than 35 - Would benefit from weight loss Moderate protein calorie malnutrition: - Poor intake for sometime on arrival, monitor nutrition Code Status: No Code. Disposition: [facility] Discharge Condition: Stable Somewhat distant breath sounds throughout, scattered rhonchi, no increased work of breathin g Heart RRR Abd soft, obese, NT Ext WWP, 3-4 cm pitting ochoa Contact information for after-discharge care Placement Destination [facility] . Specialty: Intermediate Facility Contact information: [place] [address] Discharge Medications New Medications Details albuterol-ipratropium 2.5-0.5 mg/3 mL Soln Take 3 mLs by nebulization every 4 hours as needed for Wheezing or Shortness of Breath. aluminum & magnesium hydroxide-simethicone 200-200-20 mg/5 mL suspension Take 30 mLs by mouth every 6 hours as needed for Indigestion. aka: MAALOX PLUS REGULAR STRENGTH calcium carbonate 500 mg chewable tablet Take 2 tablets by mouth every 2 hours as needed for Indigestion. aka: TUMS docusate sodium 100 MG capsule Take 100 mg by mouth 2 times daily. aka: COLACE insulin lispro 100 units/mL injection (pen) Inject 0-6 Units under the skin 4 times daily (with meals and nightly). Blood Glucose (BG) < 150:None BG 150-200: DAY: 1 units.NIGHT: 0 units BG 2 01-250: DAY: 2 units.NIGHT: 1 units BG 251-300: DAY: 3 units.NIGHT: 2 units BG 301-350: DAY: 4 units.NIGHT: 3 units BG 351-400: DAY: 5 units.NIGHT: 4 units BG > 400: DAY: 6 units.NIGHT: 5 units aka: humaLOG KWIKPEN polyethylene glycol packet Take 1 diluted packet by mouth Daily as needed for Constipation. aka: MIRALAX traZODone 50 mg tablet Take 1 tablet by mouth nightly as needed for Insomnia. aka: DESYREL Changed Medications Details carvedilol 6.25 mg tablet Take 1 tablet by mouth 2 times daily. What changed: medication strength how much to take aka: COREG furosemide 80 mg tablet Take 2 tablets by mouth 2 times daily. What changed: medication strength how much to take when to take this aka: LASIX glimepiride 2 MG tablet Take 1 tablet by mouth every morning (before breakfast). What changed: how much to take aka: AMARYL Unchanged Medications Details allopurinol 300 mg tablet Take 150 mg by mouth Daily. aka: ZYLOPRIM aspirin 81 MG tablet Take 81 mg by mouth. Three times a week atorvaSTATin 40 mg tablet Take 40 mg by mouth nightly. aka: LIPITOR fexofenadine 180 mg tablet Take 180 mg by mouth Daily as needed for Allergies. aka: HECTOR omeprazole 40 MG capsule Take 40 mg by mouth every morning (before breakfast). aka: priLOSEC triamcinolone 0.1% cream Apply 1 Application topically Twice daily as needed for Rash. aka: KENALOG Discontinued Medications losartan 50 mg tablet aka: COZAAR metOLazone 2.5 mg tablet aka: ZAROXOLYN NASACORT ALLERGY 24HR 55 mcg/nasal spray Generic drug: triamcinolone non-formulary medication SITagliptin 100 mg tablet aka: NAHOMY Studies With Pending Results: None Greater than 30 minutes were spent on discharge and coordination of post-hospital care. Electronically signed by: Bruce Alcantar MD, 07/08/2018 13:31 [facility] documented in this encounter Discharge Instructions Patient Instructions Brandi Centeno RN - 06/26/2018 6:37 PM PSTRepetative movement can cause irritation at the insertion site. If you develop tenderness at the site, report this to your nurse and apply a warm pack. Report redness at the site or new onset of fever or arrhythmias. Do NOT lift more than 10 lb. Avoid strenuous activities such as hammering, weight lifting and extensive vacuuming. The dressing needs replaced every 7 days, and sooner if it becomes loose, soiled or wet. AttachmentsThe following attachments cannot be sent through Care Everywhere.Caring for Your Peripherally Inserted Central Catheter (PICC), Discharge Instructions for ()rogerio salcido in this encounter Medications at Time of [...] + + + +---------+ + + | carvedilol (COREG) | Take 1 tablet by | 60 | 0 | 07/08/20 | | | 6.25 mg tablet | mouth 2 times daily. | tablet | | 18 | 8 | + + + +---------+ + + [...] documented as of this encounter Progress Notes Penny Deng, INDUSTRIAL DIAMOND POLISHER - 07/08/2018 10:00 AM PSTButch is offered BiPAP every night but he also refuses to wear it.Electronically signed by Penny Deng RRT at 8 11:00 AM Wing Floyd PharmD - 07/07/2018 5:00 PM PST PHARMACY SERVICES: ADMISSION MEDICATION REVIEW David Kerr Jr. is a 72 y.o. male admitted on 06/26/2018. Patient is not a reliable historian. Location of Patient when reviewed: ED X Medical Floor Patient s prior to admit medication and over the counter (OTC) medications/herbal supplem ents list obtained from: X Verbal interview X Patient able to recall SOME Name, strength, and directions X Doctor's office: Dr. Bhanu Valentin Pharmacy list names: [facility] insurance reported information X Care Everywhere X Outside Information X Other sources: Partial interview with , Lula. Interview was cut short when the Flor ent lost his temper and started cussing at [employer] because they "have already gone over this medication list several times with other staff members." Patient and his both raised their voices at [facility] then cut interview short after repeatedly telling t he tech to just call dr. Vaughn office, he knows everything the patient is taking and also ke pt asking "did you not hear what we just said" so only some medications were verified with t hem. The rest of the medications are verified with Dr. Drummond's office. Vaccines up to date? Yes No Unsure Influenza x X Pneumococcal x X Tdap x X Shingles x X Noted medications discrepancies or medication-related issues: Dosage change: Medication: Prior to Admission Sig: Correct sig: Patient taking differently as: Glimepiride 2 mg tab 2 mg by mouth every morning before breakfast 1 to 2 mg by mouth every morning before breakfast. patient taking 2 mg by mouth daily Losartan 50 mg tab 1 tab by mouth daily 1 tab by mouth twice daily Unsure if patient is meg ing. Last filled 06/12/18 #60 tabs Medication added: Medication: Prior to Admission Sig: Patient taking differently as: Allopurinol 300 mg tab 150 mg by mouth daily Carvedilol 25 mg tab 1 tab by mouth twice daily Furosemide 40 mg tab 40 mg by mouth twice daily Omeprazole 40 mg cap 1 cap by mouth daily Unsure of patient is taking. Still active order p er Dr. Drummond's office. Last filled 06/14/18 #30 Triamcinolone 55 mcg/nasal spr 1 to 2 sprays in each nare daily as needed for allergies Un sure of patient is taking. Still active order per Dr. Drummond's office. Last filled 12/21/17 #1 bottle Triamcinolone 0.1% cream 1 application topically twice daily as needed for rash Unsure of p atient is taking. Still active order per Dr. Drummond's office. Last filled 12/21/17 #30 grams Fexofenadine 180 mg tab 1 tab by mouth daily as needed for allergies Unsure of patient is taking. Still active order per Dr. Drummond's office. Last filled 12/16/17 #30 tabs Metolazone 2.5 mg tab 1 tab by mouth daily Unsure of patient is taking. Still active order per Dr. Drummond's office. Last filled 06/23/18 #30 Removed therapy: Medication: Prior to Admission Sig: Reason for Removal: Allopurinol po 150 mg by mouth daily Form adjustment Carvedilol po 25 mg by mouth twice daily Form adjustment Eplerenone 25 mg tab 1 tab by mouth three times weekly Therapy complete Furosemide 80 mg tab 80 mg by mouth daily Form/dose adjustment Glipizide 5 mg tab 1 tab by mouth every morning before breakfast Therapy complete Lisinopril po 5 mg by mouth twice daily Therapy complete Metformin 1000 mg tab 1 tab by mouth twice daily Therapy complete Warfarin 5 mg tab 1 tab by mouth daily. On Tuesday and pt states he takes 7.5 mg Th erapy complete Patient denies any use of Recreational Substances, Tobacco or Alcohol. Other: Patient is taking a diabetic trail medication. However we do not have any information re garding this. The drug is listed as "[employer] study drug" 1 tab by mouth once daily on Dr. Johana Gongora edication list. It is unknown if/how the patient is taking. Dr. Vaughn office told us it was highly confidential therefore there is no information re garding this in the patients chart notes. Ertugliflozin vs. Placebo is listed on the patients SHIPPING SUPPORT CLERK list under trail drug. However, Ertugliflozin has been approved by the FDA. Ertugliflozin is manufactured by [employer]. Best possible SHIPPING SUPPORT CLERK medication list after pharmacy review: PT REPORTED TAKING NOT TAKING Medication Sig Last Dose Dispense Doc. Provider allopurinol (ZYLOPRIM) 300 mg tablet Take 150 mg by mouth Daily. Taking Historical Sarah chavez MD aspirin 81 MG tablet Take 81 mg by mouth. Three times a week Taking Serene Looney MD atorvaSTATin (LIPITOR) 40 mg tablet Take 40 mg by mouth nightly. Taking Serene chavez MD carvedilol (COREG) 25 mg tablet Take 25 mg by mouth 2 times daily. Taking Historical Breann blanton MD fexofenadine (HECTOR) 180 mg tablet Take 180 mg by mouth Daily as needed for Allergies. Historical ProviderMD furosemide (LASIX) 40 mg tablet Take 40 mg by mouth 2 times daily. Taking Serene blanton MD glimepiride (AMARYL) 2 MG tablet Take 1-2 mg by mouth every morning (before breakfast). Paul Cast ProviderMD losartan (COZAAR) 50 mg tablet Take 50 mg by mouth 2 times daily. Historical ProviderRolan metOLazone (ZAROXOLYN) 2.5 mg tablet Take 2.5 mg by mouth Daily. Historical ProviderMD non-formulary medication Take 10 mg by mouth Daily. Ertugliflozin - Diabetes study drug vs . placebo Not Taking Serene Looney MD omeprazole (PRILOSEC) 40 MG capsule Take 40 mg by mouth every morning (before breakfast). Historical ProviderMD sitaGLIPtin (JANUVIA) 100 mg tablet Take 100 mg by mouth Daily. Historical Provider, triamcinolone (KENALOG) 0.1% cream Apply 1 Application topically Twice daily as needed fo r Rash. Historical Provider, triamcinolone (NASACORT ALLERGY 24HR) 55 mcg/nasal spray 1-2 sprays by Each Nare route Kandy ly as needed for Allergies. Historical Provider, Medication review performed and electronically signed by Ashley Farmer, Rehab Nurse 07/06 16:05 Reviewed by Wing Torres, PharmShola 07/07/2018 16:57 Silvina South M D - 07/07/2018 10:46 AM PST [facility] NEPHROLOGY progress note Patient: David Kerr Jr. : 1945 Hospital Day # 11 ASSESMENT AND PLAN 1. LORIE due to ATN, in setting of hypovolemia and septic shock. Initiated HD on 06/28/18 due to uremia. Left femoral vein HD catheter placed on 06/28/18, re moved on 07/02/18. R IJ tunneled HD catheter placed on 07/03/18. Reviewed outside labs from primary care's office. Pt had CKD stage 4 with serum creatinine around 2.4 mg/dL in Apr - May 2018; and started to have worsening of kidney function mid-N 2017, with serum creatinine increasing to 2.9 mg/dL (eGFR 21 mL/min), then to 3.2 mg/dL ( eGFR 19 mL/min), likely related to relative ischemia / cardiorenal syndrome. Given pt's advanced CKD, it is unclear if pt will have recovery of kidney function from thi s episode of LORIE. UOP improved on Lasix, but poor clearance. -HD today. -Will arrange for outpatient HD in [place]. -At discharge, recommend continuing Lasix at 160 mg PO BID. 2. Hypoxia due to pulmonary edema / pulmonary hypertension / EVITA. Remains on oxygen by nasal cannula. EVITA: Poor tolerance to CPAP. Will continue to use nasal cannula at nighttime for EVITA. 3. Anemia. Last Hb stable. 4. Dispo. Anticipate SNF placement in [place]. 24 HR EVENTS UOP 1050 mL, on Lasix 80 mg IV BID SUBJECTIVE Pt is on dialysis. Pt is drowsy, unable to carry a conversation. Denies pain. Per RN, pt was able to use walker to bathroom, with minimal help. Ate all of his breakfast . CURRENT MEDICATIONS Scheduled Meds: albuterol-ipratropium 3 mL Nebulization RT Q6H aspirin 81 mg Oral Daily atorvaSTATin 40 mg Oral Nightly carvedilol 3.125 mg Oral BID WC docusate sodium 100 mg Oral BID doxycycline 100 mg Intravenous 2 times per day famotidine 20 mg Oral Daily furosemide 80 mg Intravenous BID (8 and 16) heparin 500 Units Intravenous With each dialysis insulin lispro 0-6 Units Subcutaneous 4x Daily WC and HS nystatin 500,000 Units Swish & Spit 4x Daily traZODone 50 mg Oral Nightly Continuous Infusions: Heparin Infusion 200 Units/hr (07/07/18 0824) PRN Meds:albumin, aluminum & magnesium hydroxide-simethicone, calcium carbonate, Hypoglyce constance Management AND POCT Glucose AND dextrose, diphenhydrAMINE OR diphenhydrAMINE OR diphenhydrAMINE, heparin, menthol throat lozenges, ondansetron, phenol, polyethylene glycol OBJECTIVE VITAL SIGNS: Vital sign ranges for last 24hrs: Input and output for last 24hrs: Temp: [36.2 C (97.2 F)-36.5 C (97.7 F)] 36.5 C (97.7 F) Pulse: [68-72] 71 Resp: [18-20] 18 BP: (100-158)/(55-82) 145/72 SpO2 Av.8 % Min: 90 % Max: 97 % Flow (L/min) Av.6 Min: 2 Max: 3 07/06 0701 - 07/07 0700 In: 755 [P.O.:755] Out: 1050 [Urine:1050] General: In no acute distress. Cardiac: Regular rate and rhythm, normal S1 and S2. Trace-1+ left pedal and LE peripheral edema. Trace RLE edema. Chest: Normal respiratory effort. Clear to auscultation anteriorly. No wheezes. Abdomen: Obese, soft, non-tender, +bowel sounds. Neuro: Drowsy. Access: R IJ catheter -- BFR 350 mL/min. LABORATORY DATA: Recent Labs Lab 07/05/18 0611 07/01/18 0332 WBC 9.1 7.6 HGB 11.9* 11.3* HCT 36.9* 35.6* PLT 119* 111* Recent Labs Lab 07/07/18 0624 07/06/18 0625 07/05/18 0611 NA 134* 135* 134* K 4.7 4.3 4.3 CL 103 104 102 CO2 24 24 23* BUN 72* 61* 50* CREA 2.73* 2.68* 2.31* CALCIUM 8.6 8.7 8.7 PHOS 4.4 3.5 3.0 ALBUMIN 2.6* 2.6* 2.6* GLU 137* 143* 140* No results for input(s): MG in the last 168 hours. Diagnostic Studies: Available data and images were reviewed personally. Significant results and findings are ad dressed here or in the Assessment and Plan. Silvina Alcantar MD Electronically signed: 07/07/2018 10:46 [facility] LeSilvina lyon MD - 07/06/2018 10:59 AM PST [facility] NEPHR[facility]Y progress note Patient: David Kerr Jr. : 1945 Hospital Day # 10 ASSESMENT AND PLAN 1. LORIE due to ATN, in setting of hypovolemia and septic shock. Initiated HD on 06/28/18 due to uremia. Left femoral vein HD catheter placed on 06/28/18, re moved on 07/02/18. R IJ tunneled HD catheter placed on 07/03/18. Reviewed outside labs from primary care's office. Pt had CKD stage 4 with serum creatinine around 2.4 mg/dL in Apr - May 2018; and started to have worsening of kidney function mid-N 2017, with serum creatinine increasing to 2.9 mg/dL (eGFR 21 mL/min), then to 3.2 mg/dL ( eGFR 19 mL/min), likely related to relative ischemia / cardiorenal syndrome. Given pt's advanced CKD, it is unclear if pt will have recovery of kidney function from thi s episode of LORIE. Electrolytes are stable. BUN climb is not as high. UOP <500 mL. -Will hold off on HD today. -Challenge with Lasix 80 mg IV BID. -Depending on UOP and labs, possible HD tomorrow. 2. Hypoxia. On 2 LPM by nasal cannula, improved. CAP treated with azithromycin and ceftriaxone. CPAP at night. 3. Septic shock, likely due to pneumonia, possible LLE cellulitis. Resolved. Off Norepi gtt since 06/30/18. 4. Anemia. Last Hb stable. 24 HR EVENTS No events SUBJECTIVE Pt denies chest pain, shortness of breath, abdominal pain, nausea, vomiting. Pt reports go od appetite. reports pt is getting around the room, with walker, independently. CURRENT MEDICATIONS Scheduled Meds: acetaminophen 1,000 mg Oral 3 times per day albuterol-ipratropium 3 mL Nebulization RT Q6H aspirin 81 mg Oral Daily atorvaSTATin 40 mg Oral Nightly carvedilol 3.125 mg Oral BID WC docusate sodium 100 mg Oral BID doxycycline 100 mg Intravenous 2 times per day famotidine 20 mg Oral Daily furosemide 80 mg Intravenous BID (8 and 16) insulin lispro 0-6 Units Subcutaneous 4x Daily WC and HS nystatin 500,000 Units Swish & Spit 4x Daily traZODone 50 mg Oral Nightly Continuous Infusions: PRN Meds:albumin, aluminum & magnesium hydroxide-simethicone, calcium carbonate, Hypoglyce constance Management AND POCT Glucose AND dextrose, diphenhydrAMINE OR diphenhydrAMINE OR diphenhydrAMINE, heparin, menthol throat lozenges, ondansetron, phenol, polyethylene glycol OBJECTIVE VITAL SIGNS: Vital sign ranges for last 24hrs: Input and output for last 24hrs: Temp: [35.6 C (96.1 F)-36.9 C (98.4 F)] 35.9 C (96.6 F) Pulse: [69-70] 70 Resp: [16-20] 20 BP: (112-130)/(63-72) 130/66 SpO2 Av.8 % Min: 91 % Max: 97 % Flow (L/min) Av Min: 2 Max: 2 07/05 0701 - 07/06 0700 In: 710 [P.O.:600; I.V.:10] Out: 265 [Urine:265] General: In no acute distress. Cardiac: Regular rate and rhythm, normal S1 and S2. Trace-1+ left pedal and LE peripheral edema. Trace RLE edema. Chest: Normal respiratory effort. Clear to auscultation except decreased breath sounds a t R base. No wheezes. Abdomen: Obese, soft, non-tender, +bowel sounds. Neuro: Alert, interactive. No asterixis. Access: R IJ catheter in place. Dressing intact. LABORATORY DATA: Recent Labs Lab 07/05/18 0611 07/01/18 0332 06/30/18 0402 WBC 9.1 7.6 8.7 HGB 11.9* 11.3* 11.9* HCT 36.9* 35.6* 36.2* PLT 119* 111* 80* Recent Labs Lab 07/06/18 0625 07/05/18 0611 07/04/18 0446 NA 135* 134* 138 K 4.3 4.3 4.2 CL 104 102 106 CO2 24 23* 27 BUN 61* 50* 72* CREA 2.68* 2.31* 2.68* CALCIUM 8.7 8.7 8.8 PHOS 3.5 3.0 3.7 ALBUMIN 2.6* 2.6* 2.4* GLU 143* 140* 144* No results for input(s): MG in the last 168 hours. Diagnostic Studies: Available data and images were reviewed personally. Significant results and findings are ad dressed here or in the Assessment and Plan. Silvina Alcantar MD Electronically signed: 07/06/2018 10:59 [facility] Marilynn Cr SCRAPER BURRER - 07/06/2018 9:25 AM PSTAuthor met with Elias and Lula to complete advance directive with Elias, following POLST conversation with Palliative Care SPEEDBOAT OPERATOR. Elias named Lula as his POA for healthcare and eldest son David SHETH (Aroldo) his alternate. Pet Crematory Worker said he would be a ble to notarize the document 07/07. Brannon, Bruce Calderon MD - 07/05/2018 8:08 PM PST [facility] Hospitalist Progress Note David Kerr Jr. is a 72 y.o. male ASSESSMENT and PLAN: Active Hospital Problems Diagnosis Pneumonia due to infectious organism *Severe sepsis with septic shock Cellulitis of left lower extremity Acute kidney injury superimposed on chronic kidney disease Type 2 diabetes mellitus with stage 4 chronic kidney disease, without long-term current use of insulin Acute metabolic encephalopathy Acute on chronic systolic heart failure Obesity, morbid Resolved Hospital Problems Diagnosis Date Noted Date Resolved No resolved problems to display. Acute kidney injury superimposed on CKD IV - Baseline CKD4, arrived with BUN 166, Cr 7.03 on 06/26, with uremic symptoms, had ATN, like ly due to sepsis - Dialysis cath placed in left femoral on 06/28, Dialysis started on 06/28. - On 07/03, Right IJ hemodialysis Permacath placed - Still oliguric, UOP of 255 recorded over last 24 hours - HD done 07/04, UF of 2 liters Pneumonia due to infectious organism/Acute respiratory failure with hypoxia and hypercapnia /EVITA - Completed course of ceftriaxone/azithromycin - Sputum culture negative/respiratory virus panel neg - Remains hypoxic, but down from 5 to 2 L, CXR shows some pulmonary edema, dialysis to tyrone ve fluid - Had septic shock on arrival, hypotensive, procalcitonin of 52, started on norepi on arr ival, but has been off since 06/30 - Blood cultures neg - Resolving Acute metabolic encephalopathy/Anisorcoria - Appears to be improving daily. Multifactorial from hypercapnia, sepsis, and uremia. CT he ad without acute process, but with old infarct. Patient does have a hx of cataract surgery, and has anisocoria Cellulitis left knee versus prepatellar bursitis: Resolving. - cont doxy for 7 days Chronic systolic heart failure with acute exacerbation - Acute exacerbation from fluid overload. His EF is 35% at baseline based on 06/16 Echo wit h some pulmonary hypertension, although this may have been partly due to left heart failure - holding his diuretic therapy for now - Continue to monitor his input and output and daily weight - dialysis as above - Restarted carvedilol 07/04 Uncontrolled type II diabetes mellitus - BS usually in the 100's, may be rising with increased intake - ISS Elevated TRANSAMINASES: Mild elevation on arrival which has resolved, likely due to congestive hepatopathy/sepsis Thrombocytopenia Stable at 119 Acute hyponatremia - Stable at 134 Morbid obesity with a BMI greater than 35 - Would benefit from weight loss Moderate protein calorie malnutrition: - Poor intake for sometime on arrival, monitor nutrition Disposition : Work with family, CM Prophylaxis : aspirin SUBJECTIVE: Denies any acute shortness of breath, chest pain. Some appetite. Legs feel swollen, has been sitting up in the chair much of the afternoon. VITALS: Temp: 36.9 C (98.4 F), Pulse: 70, Resp: 16, BP: 116/63, SpO2 97 % on nasal cannula Temp Min: 36 C (96.8 F) Max: 36.9 C (98.4 F) Weight: 109.5 kg (241 lb 6.5 oz) Intake/Output Summary (Last 24 hours) at 07/05/182007 Last data filed at 07/05/18 1442 Gross per 24 hour Intake 700 ml Output 90 ml Net 610 ml PHYSICAL EXAM: General: Alert, pleasant, no distress, poor historian Cardiovascular: RRR Respiratory: Dullness in bases, otherwise clear Abdomen: Soft, NT Extremities: WWP, 3-4 cm pitting edema bilaterally below knees Rodriguez catheter present: No DIAGNOSTIC STUDIES: Available data and images were reviewed personally. Significant results and findings are a ddressed here or in the Assessment and Plan. Recent Results (from the past 24 hour(s)) POC Glucose Result Value Ref Range Glucose, POC 195 (H) 70 - 109 mg/dL CBC with Differential Result Value Ref Range WBC 9.1 4.0 - 11.0 K/uL RBC 3.72 (L) 4.30 - 5.70 M/uL Hgb 11.9 (L) 13.5 - 18.0 g/dL Hct 36.9 (L) 40.0 - 51.0 % MCV 99.2 83.0 - 101.0 fL MCH 32.0 28.0 - 35.0 pg MCHC 32.2 32.0 - 36.0 g/dL RDW-CV 16.7 (H) <15.0 % RDW-SD 61.1 (H) 35.1 - 46.3 fL Platelet Count 119 (L) 140 - 440 K/uL MPV 11.7 6.5 - 12.4 fL Immature Platelet Fraction 5.6 0.9 - 11.2 % % Neutrophils 80.3 45.0 - 82.0 % % Lymphocytes 8.9 (L) 20.0 - 45.0 % % Monocytes 8.0 4.0 - 12.0 % % Eosinophils 1.5 0.0 - 5.0 % % Basophils 0.7 0.0 - 1.0 % % Immature granulocytes 0.6 (H) 0.0 - 0.4 % Absolute Neutrophils 7.30 1.80 - 8.50 K/uL Absolute Lymphocytes 0.81 0.60 - 3.20 K/uL Absolute Monocytes 0.73 0.00 - 1.00 K/uL Absolute Eosinophils 0.14 0.00 - 0.40 K/uL Absolute Basophils 0.06 0.00 - 0.10 K/uL Absolute Imm. Granulocytes 0.05 (H) 0.00 - 0.03 K/uL nRBC 0 0 - 2 per 100 WBC's NRBC ABS 0.00 0.00 - 0.01 K/uL Renal Function Panel Result Value Ref Range Na 134 (L) 136 - 149 mmol/L K 4.3 3.5 - 5.1 mmol/L Cl 102 98 - 109 mmol/L CO2 23 (L) 24 - 31 mmol/L Anion Gap 9 3 - 16 mmol/L Glucose 140 (H) 70 - 109 mg/dL BUN 50 (H) 7 - 18 mg/dL Creatinine 2.31 (H) 0.60 - 1.30 mg/dL eGFR if not 28 (L) >=60 mL/min/1.73m2 Ca 8.7 8.3 - 10.5 mg/dL Albumin 2.6 (L) 3.2 - 5.0 g/dL Phosphorus 3.0 2.5 - 4.6 mg/dL BUN/Creatinine Ratio 21.6 POC Glucose Result Value Ref Range Glucose, POC 244 (H) 70 - 109 mg/dL POC Glucose Result Value Ref Range Glucose, POC 115 (H) 70 - 109 mg/dL No results found. Current Facility-Administered Medications: acetaminophen 1,000 mg Oral 3 times per day albumin 12.5 g Intravenous PRN albuterol-ipratropium 3 mL Nebulization RT Q6H aluminum & magnesium hydroxide-simethicone 30 mL Oral Q6H PRN aspirin 81 mg Oral Daily atorvaSTATin 40 mg Oral Nightly calcium carbonate 1,000 mg Oral Q2H PRN carvedilol 3.125 mg Oral BID WC dextrose 12.5 g Intravenous PRN diphenhydrAMINE 12.5 mg Intravenous Q4H PRN Or diphenhydrAMINE 25 mg Oral Q4H PRN Or diphenhydrAMINE 25 mg Oral Q4H PRN docusate sodium 100 mg Oral BID doxycycline 100 mg Intravenous 2 times per day famotidine 20 mg Oral Daily heparin 1,500-6,000 Units Intracatheter PRN insulin lispro 0-6 Units Subcutaneous 4x Daily WC and HS menthol throat lozenges 1 lozenge Buccal Q2H PRN nystatin 500,000 Units Swish & Spit 4x Daily ondansetron 4 mg Intravenous Q6H PRN phenol 1-2 spray Mouth/Throat Q3H PRN polyethylene glycol 17 g Oral Daily PRN traZODone 50 mg Oral Nightly Total time of approximately 25 minutes was spent with the patient and/or patient's family, and/or on the patient's floor/unit, of which more than 50% was spent counseling and/or coord ination the patient's care as outlined above. Bruce Alcantar 07/05/2018 20:08 [facility] Ofelia Pandey [place] CITIZENSHIP TEACHER - 07/05/2018 5:21 PM [facility] Palliative Care note: FATOUMATA Jimenez Briefly followed up with Mr. Kerr regarding his code status and treatment goals. Found he w as alone in his room. He was non committal when asked if he had thought more about what he w ould want to do in emergency medical situations. He did not recall prior conversations, stat ed he was not interested in thinking about it and deferred to his son. No physical assessment was done. The patient asked to nap. The visit was less than 10 minut es. 07/06/2018 Addendum Mr and Mrs Kerr were present this morning and sent word Mr Kerr is ready and wishes to comp lete his POLST and Advance Care Directive. POLST was completed. Mr Kerr elected DNR/DNI, limited interventions, PRN antibiotics and tr ial artificial nutrition by tube. He asked insightful questions to help determine what would interventions be like and various scenarios that could result in . Advance Care Directive will be completed with palliative care SCRAPER BURRER Marilynn Garcia. Silvina South MD - 07/05/2018 9:32 AM PST [facility] NEPHROLOG[facility] progress note Patient: David Kerr Jr. : 1945 Hospital Day # 9 ASSESMENT AND PLAN 1. LORIE due to ATN, in setting of hypovolemia and septic shock. Initiated HD on 06/28/18 due to uremia. Left femoral vein HD catheter placed on 06/28/18, re moved on 07/02/18. R IJ tunneled HD catheter placed on 07/03/18. Reviewed outside labs from primary care's office. Pt had CKD stage 4 with serum creatinine around 2.4 mg/dL in Apr - May 2018; and started to have worsening of kidney function mid-N 2017, with serum creatinine increasing to 2.9 mg/dL (eGFR 21 mL/min), then to 3.2 mg/dL ( eGFR 19 mL/min), likely related to relative ischemia / cardiorenal syndrome. Given pt's advanced CKD, it is unclear if pt will have recovery of kidney function from thi s episode of LORIE. -Will continue to monitor I/O. -Plan for HD tomorrow. 2. Hypoxia. On 4 LPM by nasal cannula, stable. CAP treated with azithromycin and ceftriaxone. CPAP at night. -Will UF as able with HD tomorrow. 3. Septic shock, likely due to pneumonia, possible LLE cellulitis. Resolved. Off Norepi gtt since 06/30/18. 4. Anemia. Hb stable. No indication for KINJAL. 24 HR EVENTS HD x 5 hrs, UF ~2 Liters SUBJECTIVE Pt denies chest pain, shortness of breath, abdominal pain. Pt reports he ate his whole breakfast. CURRENT MEDICATIONS Scheduled Meds: acetaminophen 1,000 mg Oral 3 times per day albuterol-ipratropium 3 mL Nebulization RT Q6H aspirin 81 mg Oral Daily atorvaSTATin 40 mg Oral Nightly carvedilol 3.125 mg Oral BID WC docusate sodium 100 mg Oral BID doxycycline 100 mg Intravenous 2 times per day famotidine 20 mg Oral Daily insulin lispro 0-6 Units Subcutaneous 4x Daily WC and HS nystatin 500,000 Units Swish & Spit 4x Daily traZODone 50 mg Oral Nightly Continuous Infusions: PRN Meds:albumin, aluminum & magnesium hydroxide-simethicone, calcium carbonate, Hypoglyce constance Management AND POCT Glucose AND dextrose, diphenhydrAMINE OR diphenhydrAMINE OR diphenhydrAMINE, heparin, menthol throat lozenges, ondansetron, phenol, polyethylene glycol OBJECTIVE VITAL SIGNS: Vital sign ranges for last 24hrs: Input and output for last 24hrs: Temp: [36 C (96.8 F)-36.6 C (97.9 F)] 36.6 C (97.9 F) Pulse: [69-76] 76 Resp: [16-32] 16 BP: (100-146)/(56-87) 136/70 SpO2 Av.6 % Min: 82 % Max: 100 % Flow (L/min) Av Min: 2 Max: 5 07/04 0701 - 07/05 0700 In: 700 [P.O.:700] Out: 2189 [Urine:190] General: In no acute distress. Cardiac: Regular rate and rhythm, normal S1 and S2. Trace-1+ left pedal and LE peripheral edema. Chest: Normal respiratory effort. Expiratory wheezes at bases, otherwise clear. Abdomen: Obese, soft, non-tender, +bowel sounds. Neuro: Alert, interactive. Access: R IJ catheter in place. Dressing intact. LABORATORY DATA: Recent Labs Lab 07/05/18 0611 07/01/18 0332 06/30/18 0402 WBC 9.1 7.6 8.7 HGB 11.9* 11.3* 11.9* HCT 36.9* 35.6* 36.2* PLT 119* 111* 80* Recent Labs Lab 07/05/18 0611 07/04/18 0446 07/03/18 0416 NA 134* 138 133* K 4.3 4.2 4.0 CL 102 106 101 CO2 23* 27 25 BUN 50* 72* 59* CREA 2.31* 2.68* 2.29* CALCIUM 8.7 8.8 8.9 PHOS 3.0 3.7 2.5 ALBUMIN 2.6* 2.4* 2.4* GLU 140* 144* 137* No results for input(s): MG in the last 168 hours. Diagnostic Studies: Available data and images were reviewed personally. Significant results and findings are ad dressed here or in the Assessment and Plan. Silvina Alcantar MD Electronically signed: 07/05/2018 9:32 [facility] Ofelia Pandey AR CITIZENSHIP TEACHER - 07/04/2018 3:56 PM PST [facility] PALLIATIVE CARE PROGRESS NOTE Pt. Name/Age/: David Kerr Jr. 72 y.o. 1945 Med. Record Number: [id number] Palliative Railroad Passenger Agent: FATOUMATA Ash Palliative Care Team: ENZO Tobin and Chaplain Dany Tidwell Primary Care Physician: Gregory Drummond MD Resuscitation Status: NO CPR Current Code Status: Partial Advance Directive: POLST: YES Date signed 06/30/18 by health care surrogate Surrogate Decision Maker: spouse Lula Kerr / Contact: PATIENT S DECISION-MAKING CAPACITY AT TIME OF VISIT:Fluctuating mental status. SUBJECTIVE 06/30/2018 Summary of Medical Situation: (Illness progression and Prognosis): David Kerr Jr. is a 72 y.o. male with a history of ischemic cardiomyopathy, s/p AICD, history of myocardial infarction (~ 8 years ago), CHF and HTN. admitted on 06/26/2018 f or progressive weakness, anorexia, productive cough and shortness of breath for about a week and was found to have LLE cellulitis, RLL pneumonia, severe sepsis and septic shock, acute on chronic congestive heart failure, acute respiratory failure with hypoxia and hypercapnia, acute kidney injury on diabetic CKD stage 4 (baseline creatinine ~ 2.4; see note by Nephrol ogist Silvina Alcantar MD on 06/30/18). Creatinine was 7.03 on admission 06/26/18. Elias's hospital course has been complicated by acute kidney injury secondary to acute tubu lar necrosis and septic shock. Senior Technical Business Analyst Silvina Alcantar MD initiated hemodialysis on 06/28/18 (Left femora HD catheter place on 06/28/18) and indicates she suspects ischemia / cardio renal syndrome. It is not clear at this time whether renal function will improve or alf dialysis will be needed / recommended. Interim HPI: It appears that alf dialysis will in fact be needed for survival. Noting that a fistula was placed on 07/03/18. Following up on goals of care and code status now that the patient has undergone multiple d ialysis sessions and this provider hoped to find him able to make decisions and discuss goal s of care. Previously, discussion were with family members due to his acute illness and cogn itive impairment. Initially Elias was able to follow and weigh options, but he then forgot his statements and decisions after a 10 minute break. It was clear that he does not understand what is entailed in dialysis. Plan: follow up over the next few days and re evaluate capacity. Patient Active Problem List Diagnosis Obesity, morbid Diabetes type 2, controlled Chest pain with high risk for cardiac etiology Pneumonia due to infectious organism Severe sepsis with septic shock Cellulitis of left lower extremity Acute kidney injury superimposed on chronic kidney disease Type 2 diabetes mellitus with stage 4 chronic kidney disease, without long-term current use of insulin Acute metabolic encephalopathy Acute on chronic systolic heart failure HISTORY: Past Medical History: Diagnosis Date Chest pain Claustrophobia Diabetes type 2, controlled (HCC) Gout Heart attack (HCC) Hypercholesteremia Hypertension Pacemaker Medtronic Past Surgical History: Procedure Laterality Date CATARACT REMOVAL WITH IMPLANT Left 09/16/2014 Procedure: Left Cataract Extraction w/ IOL Implant; Surgeon: Charisse Santana MD; Loc ation: [facility] MAIN OR CATARACT REMOVAL WITH IMPLANT Right 10/14/2014 Procedure: Right Cataract Extraction w/ IOL Implant; Surgeon: Charisse Santana MD; Lo cation: [facility] MAIN OR CORONARY ARTERY BYPASS GRAFT EGD AND COLONOSCOPY N/A 12/18/2015 Procedure: EGD / COLONOSCOPY - bmi 45 - has pacemaker defibrilator ; Surgeon: Meredith forbes MD; Location: [facility] pacemaker medtronic SHUNT PLACEMENT/INSERTION Right 07/03/2018 Procedure: INSERTION SHUNT HEMODIALYSIS W/ PERMACATH; Surgeon: Melba Wallace MD; L ocation: [facility] History reviewed. No pertinent family history. Social History Social History Marital status: Spouse name: N/A Number of children: N/A Years of education: N/A Social History Main Topics Smoking status: Former Smoker Packs/day: 1.00 Years: 30.00 Types: Cigarettes Quit date: 07/25/2001 Smokeless tobacco: Current User Types: Chew Comment: every once in a while Alcohol use Yes Comment: 1-2 beers in the summer Drug use: No Sexual activity: Not Asked Other Topics Concern None Social History Narrative None Review of Systems Questions asked in ROS include: Constitutional: fevers, sweats, chills, change in appetite - unsure of his appetite but had just eaten 100% of his lunch. fatigue HEENT: n sore throat, pain swallowing, neck pain Cards: chest pain, dyspnea on exertion, palpitations, lightheadedness,dizziness, leg swelli ng. Resp: shortness of breath, wheezing, chest congestion, cough GI: nausea, vomiting, diarrhea, constipation (he is unsure until spouse lets him know he salvador d a BM yesterday) , abdominal pain, distention, acid reflux. : pain or discomfort from the rodriguez (meatus, bladder, flanks) Neuro: headaches, change in vision, numbness or tingling, weakness. Remainder of other 11 points of review of systems have been reviewed and negative, except per HPI. OBJECTIVE Allergies Allergies Allergen Reactions Morphine Other (See Comments) Changes personality to "mean" "get mean" Medications Current Facility-Administered Medications Medication Dose Route Frequency Provider Last Rate Last Dose acetaminophen (TYLENOL) tablet 1,000 mg 1,000 mg Oral 3 times per day Melba cruz MD 1,000 mg at 07/04/18 1336 albumin 25% IVPB 12.5 g 12.5 g Intravenous PRN Silvina Alcantar MD albuterol-ipratropium 2.5-0.5 mg/3 mL nebulizer solution 3 mL 3 mL Nebulization RT Q6H Mabel Jaimes MD 3 mL at 07/04/18 0843 aluminum & magnesium hydroxide-simethicone (MAALOX PLUS REGULAR STRENGTH) 200-200-20 mg /5 mL suspension 30 mL 30 mL Oral Q6H PRN Melba Wallace MD aspirin EC tablet 81 mg 81 mg Oral Daily Mabel Jaimes MD 81 mg at 07/04/18 08 11 atorvaSTATin (LIPITOR) tablet 40 mg 40 mg Oral Nightly Mabel Jaimes MD 40 mg at 07/03/18 2132 calcium carbonate (TUMS) chewable tablet 1,000 mg 1,000 mg Oral Q2H PRN Melba adam MD carvedilol (COREG) tablet 3.125 mg 3.125 mg Oral BID ESTHER Alcantar MD dextrose 50% injection 12.5 g 12.5 g Intravenous PRN Mabel Jaimes MD diphenhydrAMINE (BENADRYL) injection 12.5 mg 12.5 mg Intravenous Q4H PRN Melba Wallace MD Or diphenhydrAMINE (BENADRYL) tablet 25 mg 25 mg Oral Q4H PRN Melba Wallace MD Or diphenhydrAMINE (BENADRYL) 12.5 mg/5 mL liquid 25 mg 25 mg Oral Q4H PRN Melba adam MD docusate sodium (COLACE) capsule 100 mg 100 mg Oral BID Mabel Jaimes MD 100 m g at 07/04/18 0811 doxycycline (VIBRAMYCIN) 100 mg in sodium chloride 0.9% 100 mL IVPB 100 mg Intravenous 2 times per day Chava Werner DO 100 mL/hr at 07/04/18 0727 100 mg at 07/04/18 0727 [START ON 07/05/2018] famotidine (PEPCID) tablet 20 mg 20 mg Oral Daily Mabel feliz MD heparin 1,000 units/mL injection 1,500-6,000 Units 1,500-6,000 Units Intracatheter PRN Silvina Alcantar MD 1,800 Units at 07/04/18 1336 heparin 1,000 units/mL injection 500 Units 500 Units Intravenous With each dialysis Yonas Alcantar MD 500 Units at 07/04/18 0751 heparin in half-normal saline 50 units/mL infusion 200 Units/hr Intravenous Continuous Silvina Alcantar MD 4 mL/hr at 07/04/18 0751 200 Units/hr at 07/04/18 0751 insulin lispro (humaLOG KWIKPEN) injection (pen) 0-6 Units 0-6 Units Subcutaneous 4x D aily WC and HS Mabel Jaimes MD Stopped at 07/02/18 2103 menthol (HALLS COUGH DROP) lozenge 1 lozenge 1 lozenge Buccal Q2H PRN Melba cruz MD nystatin (MYCOSTATIN) 100,000 units/mL suspension 500,000 Units 500,000 Units Swish & Spit 4x Daily Silvina Alcantar MD 500,000 Units at 07/04/18 1338 ondansetron (ZOFRAN) injection 4 mg 4 mg Intravenous Q6H PRN Melba Wallace MD phenol (CHLORASEPTIC) spray 1-2 spray 1-2 spray Mouth/Throat Q3H PRN Melba Falcon MD polyethylene glycol (MIRALAX) powder 17 g 17 g Oral Daily PRN Mabel Jaimes MD traZODone (DESYREL) tablet 50 mg 50 mg Oral Nightly Mabel Jaimes MD 50 mg at 07/03/18 2132 Scheduled Medications PRN Med's acetaminophen 1,000 mg Oral 3 times per day albuterol-ipratropium 3 mL Nebulization RT Q6H aspirin 81 mg Oral Daily atorvaSTATin 40 mg Oral Nightly carvedilol 3.125 mg Oral BID WC docusate sodium 100 mg Oral BID doxycycline 100 mg Intravenous 2 times per day [START ON 07/05/2018] famotidine 20 mg Oral Daily heparin 500 Units Intravenous With each dialysis insulin lispro 0-6 Units Subcutaneous 4x Daily WC and HS nystatin 500,000 Units Swish & Spit 4x Daily traZODone 50 mg Oral Nightly Heparin Infusion 200 Units/hr (07/04/18 0751) albumin, aluminum & magnesium hydroxide-simethicone, calcium carbonate, Hypoglycemia Manag ement AND POCT Glucose AND dextrose, diphenhydrAMINE OR diphenhydrAMINE OR d iphenhydrAMINE, heparin, menthol throat lozenges, ondansetron, phenol, polyethylene glycol Lab Pertinent Labs Reviewed for Today's Visit: Recent Results (from the past 24 hour(s)) POC Glucose Result Value Ref Range Glucose, POC 139 (H) 70 - 109 mg/dL POC Glucose Result Value Ref Range Glucose, POC 144 (H) 70 - 109 mg/dL POC Glucose Result Value Ref Range Glucose, POC 186 (H) 70 - 109 mg/dL Renal Function Panel Result Value Ref Range Na 138 136 - 149 mmol/L K 4.2 3.5 - 5.1 mmol/L Cl 106 98 - 109 mmol/L CO2 27 24 - 31 mmol/L Anion Gap 5 3 - 16 mmol/L Glucose 144 (H) 70 - 109 mg/dL BUN 72 (H) 7 - 18 mg/dL Creatinine 2.68 (H) 0.60 - 1.30 mg/dL eGFR if not 24 (L) >=60 mL/min/1.73m2 Ca 8.8 8.3 - 10.5 mg/dL Albumin 2.4 (L) 3.2 - 5.0 g/dL Phosphorus 3.7 2.5 - 4.6 mg/dL BUN/Creatinine Ratio 26.9 POC Glucose Result Value Ref Range Glucose, POC 120 (H) 70 - 109 mg/dL POC Glucose Result Value Ref Range Glucose, POC 140 (H) 70 - 109 mg/dL POC Glucose Result Value Ref Range Glucose, POC 175 (H) 70 - 109 mg/dL Radiology/Imaging Fl Cva Device Placement Result Date: 07/03/2018 This exam has been auto-finalized and the interpretation may exist elsewhere in the chart. Xr Chest 1 Vw Result Date: 07/03/2018 XR CHEST 1 VIEW 07/03/2018 4:55 PM HISTORY: post central line. COMPARISON: Multiple priors FINDINGS: Lines and tubes are stable. Median sternotomy wires are once again seen, many of w hich are fractured. Heart is enlarged. Diffuse thickening of the central bronchovascular mar kings. Minimal bibasilar atelectasis. No evidence of pneumothorax. No acute osseous abnormal ity. Remote fracture deformities of the ribs. IMPRESSION - New right internal jugular approa ch dual-lumen central catheter tip terminates in the upper/mid right atrium. Cardiomegaly. F indings are suggestive of mild diffuse interstitial pulmonary edema. Dictated and Signed by: Fadi Shell MD Electronically signed: 07/03/2018 7:09 PM Vitals BP 133/78 | Pulse 71 | Temp 36.5 C (97.7 F) | Resp (!) 32 | Ht 1.702 m (5' 7") | W t 114.6 kg (252 lb 10.4 oz) | SpO2 97% | BMI 39.57 kg/m Physical Exam General: Patient appears to quickly fatigue, has a difficult time staying awake after about 15 minutes Obese. HEENT: atraumatic .Pupils equal, sclera non-icteric, conjunctiva normal, oral mucosa moist .Ears, throat are normal. Lungs: diffuse wheezes clearing with cough. Mildly labored with long sentences - uses purse d lip breathing. Heart: Heart sounds are normal. No murmurs. 2-3 + pitting pedal edema on LEFT, trace on r ight. Deep scarring and hemosiderin staining on LEFT lower leg. Abdomen: Soft, distended, no tenderness, bowel tones present. Urine in rodriguez bag is coffee color. Musculoskeletal: strength grossly weak. Moves all extremities. No pain on palpations. Neurological: AOx3 initially but decompensated after discussion, short term memory defici ts noted after 10 minute break. Skin: normal without suspicious lesions noted. Warm and dry. No mottling or cyanosis. Psychiatric: Affect and mood stable. Behavior is normal. Palliative Assessments Symptom Assessment Tool (based on Modified [place] Symptom Assessment Scale) [x] Unable or incomplete due to impaired or insufficient cognition 3(severe 2 (mod) x 1 (mild) 0(absent) x x unsure x x pain dyspnea constipation nausea anorexia fatigue insomnia anx depression other (0=absent, 1=mild, 2=mod, 3=severe ASSESSMENT AND PLAN Plan or Recommendations: 1) Confusion Goals of Care / Code Status Initial goals of care and code status discussion did not include the patient due to the pat ients acute / critical medical condition and resulting impaired cognitive state. The family, based decisions on their knowledge of the patients prior statements. It was agreed that after cognitive status improved with dialysis via femoral catheter discu ssion would take place with the patient. A short visit today found Elias able to discuss POLST questions and goals of care should hi s medical condition worsen (decline, new medical insults, accidents / injuries). However, when this provider returned to his room after 10 minutes he did not seem to recall his answers. Though he was disappointed, this provider stated we would revisit Code status again over e next few days. See Initial Palliative Care Consult note from 06/30/2018: Palliative Care Service has been asked to assist the patient and family with goals of care, advance care planning and Code status discussions particularly in view of possible long ter m dialysis and patient intolerance of BiPAP in the setting of respiratory failure prompting consideration of possible invasive respiratory support. Family Care Conference today (06/30/18) included the patient's spouse Lula, sons Kalia and Marcelo christina Jr, and daughter Cesia, palliative care SPEEDBOAT OPERATORGwendolyn Jimenez and SCRAPER BURRER Marilynn Garcia. Elias i s unable to participate in discussions due to current impaired cognitive function and restle ssness. Brief Summary: It is hoped that with continued dialysis via femoral catheter, Elias may regain clearer cog nition and be able to discuss his wishes. For now, the family has made decisions regarding code status based on their knowledge of hi s wishes. CODE Status is NO CPR, no shocks, no ACLS. They will allow intubation due to the patient's intolerance of BiPAP and to support his life in the short term in hopes of regaining cogniti ve clearing and decision making ability. PAIN ASSESSMENT: Best 0 / Worst 0 COMMUNICATION/DOCUMENTATION: Interdisciplinary Team under direction of the Provider: Palliative Care Pet Crematory Worker: Fredi Tidwell Palliative Care Real Estate Executive Assistant: ENZO Tobin * I have personally reviewed the information with the patient and/or family and concur with the information recorded by fellow steam bone press tender signed above. Palliative Care Provider: FATOUMATA Ash Total time of approximately 55 minutes ([id number], [id number]) was spent with the patient a nd/or patient's family, and/or on the patient's floor/unit, of which more than 50% was spent counseling and/or coordination the patient's care as outlined above. Topics Discussed: See discussion notes under Discussion and Plan section. Electronically signed by: FATOUMATA Hughes, 07/04/2018 15:56 AGUIRRE: AFTT - adult failure to thrive SPEEDBOAT OPERATOR - advanced registered nurse practitioner BiPAP - bilevel positive airway pressure BP- blood pressure CN-cranial nerves CPAP-continuous positive airway pressure dc'd - discharged or discontinued EOMI-extraocular movement intact HR-heart rate HSM-hepatosplenomegaly LE-lower extremity MD- doctor of medicine e5Bks-tqaict saturation PERRLA-pupils equal, round, reactive to light and accommodation RR-respiratory rate S1 S2- 1st and 2nd heart sounds T-temperature JVD-jugular vein distension Silvina South MD - 07/04/2018 12:13 PM PST [facility] NEPHROLOGY progress note Patient: David Kerr Jr. : 1945 Hospital Day # 8 ASSESMENT AND PLAN 1. LORIE due to ATN, in setting of hypovolemia and septic shock. Initiated HD on 06/28/18 due to uremia. Left femoral vein HD catheter placed on 06/28/18, re moved on 07/02/18. R IJ tunneled HD catheter placed on 07/03/18. Reviewed outside labs from primary care's office. Pt had CKD stage 4 with serum creatinine around 2.4 mg/dL in Apr - May 2018; and started to have worsening of kidney function mid-N 2017, with serum creatinine increasing to 2.9 mg/dL (eGFR 21 mL/min), then to 3.2 mg/dL ( eGFR 19 mL/min), likely related to relative ischemia / cardiorenal syndrome. Given pt's advanced CKD, it is unclear if pt will have recovery of kidney function from thi s episode of LORIE. Will continue to provide dialysis support and monitor for renal recovery. -HD x 5 hrs today, 4 K bath, DFR 8 L/hr. 2. Acute respiratory distress, likely due to pneumonia and CHF. CXR with RLL PNA, cardiomegaly, and pulmonary edema. BIPAP PRN. -Will UF 1.5 L with HD today. 3. Septic shock, likely due to pneumonia, possible LLE cellulitis. Resolved. Off Norepi gtt since 06/30/18. 4. Malnutrition. Adjust diet to general, low sodium diet. 24 HR EVENTS Tunneled HD line placed by Dr. Wallace SUBJECTIVE Pt denies pain, chest pain, shortness of breath, abdominal pain. Per RN, pt had a good breakfast. CURRENT MEDICATIONS Scheduled Meds: acetaminophen 1,000 mg Oral 3 times per day albuterol-ipratropium 3 mL Nebulization RT Q6H aspirin 81 mg Oral Daily atorvaSTATin 40 mg Oral Nightly docusate sodium 100 mg Oral BID doxycycline 100 mg Intravenous 2 times per day [START ON 07/05/2018] famotidine 20 mg Oral Daily heparin 500 Units Intravenous With each dialysis insulin lispro 0-6 Units Subcutaneous 4x Daily WC and HS nystatin 500,000 Units Swish & Spit 4x Daily traZODone 50 mg Oral Nightly Continuous Infusions: Heparin Infusion 200 Units/hr (07/04/18 0751) norepinephrine Stopped (06/29/18 2304) PRN Meds:albumin, aluminum & magnesium hydroxide-simethicone, calcium carbonate, Hypoglyce constance Management AND POCT Glucose AND dextrose, diphenhydrAMINE OR diphenhydrAMINE OR diphenhydrAMINE, menthol throat lozenges, ondansetron, phenol, polyethylene glycol OBJECTIVE VITAL SIGNS: Vital sign ranges for last 24hrs: Input and output for last 24hrs: Temp: [36 C (96.8 F)-37.2 C (99 F)] 36 C (96.8 F) Pulse: [70-80] 72 Resp: [8-31] 25 BP: (102-146)/(48-80) 126/70 SpO2 Av.1 % Min: 87 % Max: 99 % Flow (L/min) Av.6 Min: 4 Max: 6 07/03 0701 - 07/04 0700 In: 400 [P.O.:300; I.V.:100] Out: 255 [Urine:225] General: In no acute distress. Cardiac: Regular rate and rhythm, normal S1 and S2. Trace pitting LE edema. Chest: Normal respiratory effort. Expiratory wheezes at right lateral base. Abdomen: Obese, soft, non-tender, good bowel sounds. Neuro: Alert, interactive. Access: R IJ tunneled catheter -- BFR 350 mL/min. LABORATORY DATA: Recent Labs Lab 07/01/18 0332 06/30/18 0402 06/29/18 0321 WBC 7.6 8.7 9.7 HGB 11.3* 11.9* 12.2* HCT 35.6* 36.2* 36.5* PLT 111* 80* 78* Recent Labs Lab 07/04/18 0446 07/03/18 0416 07/02/18 0328 07/01/18 0332 NA 138 133* 134* 134* K 4.2 4.0 4.0 3.8 CL 106 101 101 101 CO2 27 25 26 25 BUN 72* 59* 77* 62* CREA 2.68* 2.29* 3.23* 2.75* CALCIUM 8.8 8.9 9.0 8.7 PHOS 3.7 2.5 -- 3.9 ALBUMIN 2.4* 2.4* 2.3* 2.4* GLU 144* 137* 137* 121* No results for input(s): MG in the last 168 hours. Diagnostic Studies: Available data and images were reviewed personally. Significant results and findings are ad dressed here or in the Assessment and Plan. Silvina Alcantar MD Electronically signed: 07/04/2018 12:14 [facility]PHR[facility] Cristal Denson, Sql Developer - 07/04/2018 11:19 AM PSTFormatting of this note might be different from t sharan original. IV TO PO PER PHARMACY PROTOCOL David Kerr . is a 72 y.o. year old male admitted on 06/26/2018 6:37 for Hypoxem ia [R09.02] Hyponatremia [E87.1] Pneumonia of right lower lobe due to infectious organism (HCC) [J18.1] Acute renal failure with acute tubular necrosis superimposed on chronic kidney disease, uns pecified CKD stage (HCC) [N17.0, N18.9] Temp: [36.1 C (97 F)-37.2 C (99 F)] 36.1 C (97 F) Pulse: [70-80] 70 Resp: [8-31] 25 BP: (102-146)/(48-80) 120/67 Recent Labs Lab 07/01/18 0332 06/30/18 0402 06/29/1832006/28/18 0357 HGB 11.3* 11.9* 12.2* 12.8* HCT 35.6* 36.2* 36.5* 38.5* MCV 98.1 96.0 96.8 96.3 MCH 31.1 31.6 32.4 32.0 MCHC 31.7* 32.9 33.4 33.2 RDW 16.0* 15.8* 15.9* 15.7* Recent Labs Lab 07/04/18 0446 07/03/18 0416 07/02/18 0328 07/01/18 0332 06/30/18 0402 06/29/1832006/28/18356 NEUABS -- -- -- 6.23 -- -- 9.46* WBC -- -- -- 7.6 8.7 9.7 11.2* CREA 2.68* 2.29* 3.23* 2.75* 3.22* 4.23* 5.56* PLT -- -- -- 111* 80* 78* 100* Estimated Creatinine Clearance: 31 mL/min (A) (based on SCr of 2.68 mg/dL (H)). Assessment: Patient is currently on famotidine IV since 06/26/18. [x] Patient meets criteria for IV to PO switch Tolerating oral or enteral nutriton; receiving other oral medications Intact and functioning GI tract Improving clinical status such as, but not limited to following: HR <100 bpm Systolic BP >100 mmHg Baseline mental status Plan: Change famotidine IV to 20 mg q24hr to orally famotidine 20 mg q24hr Cristal Haro, Sql Developer 07/04/2018 11:20 [facility] IV TO PO Collaborative Practice Protocol Bruce Stark MD - 07/04/2018 7:04 AM PSTFormatting of this note might be different from tati mcdonough. [facility] Hospitalist Progress Note David Kerr Jr. is a 72 y.o. male ASSESSMENT and PLAN: Active Hospital Problems Diagnosis Pneumonia due to infectious organism *Severe sepsis with septic shock Cellulitis of left lower extremity Acute kidney injury superimposed on chronic kidney disease Type 2 diabetes mellitus with stage 4 chronic kidney disease, without long-term current use of insulin Acute metabolic encephalopathy Acute on chronic systolic heart failure Obesity, morbid Resolved Hospital Problems Diagnosis Date Noted Date Resolved No resolved problems to display. Acute kidney injury superimposed on CKD IV - Baseline CKD4, arrived with BUN 166, Cr 7.03 on 06/26, with uremic symptoms, had ATN, like ly due to sepsis - Dialysis cath placed in left femoral on 06/28, Dialysis started on 06/28. - On 07/03, Right IJ hemodialysis Permacath placed - Still oliguric, UOP of 255 recorded over last 24 hours - HD planned today Pneumonia due to infectious organism/Acute respiratory failure with hypoxia and hypercapnia /EVITA - Completed course of ceftriaxone/azithromycin - Sputum culture negative/respiratory virus panel neg - Remains hypoxic, currently on 5 liters, CXR shows some pulmonary edema, dialysis to remov e fluid - Had septic shock on arrival, hypotensive, procalcitonin of 52, started on norepi on arr ival, but has been off since 06/30 - Blood cultures neg - Resolved Acute metabolic encephalopathy/Anisorcoria - Resolving. Multifactorial from hypercapnia, sepsis, and uremia. CT head without acute pro cess, but with old infarct. Patient does have a hx of cataract surgery, and has anisocoria Cellulitis left knee versus prepatellar bursitis: Resolving. - cont doxy for 7 days Chronic systolic heart failure with acute exacerbation - Acute exacerbation from fluid overload. His EF is 35% at baseline based on 06/16 Echo wit h some pulmonary hypertension, although this may have been partly due to left heart failure - holding his diuretic therapy for now - Continue to monitor his input and output and daily weight - dialysis as above - Discuss systolic heart failure meds with nephrology, but would like to restart carvedilol at some point Uncontrolled type II diabetes mellitus - BS in the 100's so far - ISS Elevated TRANSAMINASES: Mild elevation on arrival which has resolved, likely due to congestive hepatopathy/sepsis Thrombocytopenia Stable at 111 Acute hyponatremia - Normalized, 138 this morning, monitor closely do not want this to go higher Morbid obesity with a BMI greater than 35 - Would benefit from weight loss Moderate protein calorie malnutrition: - Poor intake for sometime on arrival, monitor nutrition Disposition : Discuss with nephrology, may be able to transfer to the floor soon Prophylaxis : aspirin/heparin with dialysis SUBJECTIVE: Denies chest pain. Short of breath at times, still has frequent cough. No knee pain, he r eports this has resolved. Good appetite this morning. Reports he doesn't like BIPAP, but w illing to use it. By report, got out of bed twice, was somewhat confused overnight. Wore BIPAP much of the night. More lethargic this morning. Coughed up thick yellow sputum. Short of breath with activity. 255 mL of UOP reported over 24 hours. VITALS: Temp: 36.7 C (98.1 F), Pulse: 70, Resp: 19, BP: 123/71, SpO2 94 % on non-invasive venti lation (i.e. bi-level) Temp Min: 36.4 C (97.5 F) Max: 37.2 C (99 F) Weight: 109.5 kg (241 lb 6.5 oz) Intake/Output Summary (Last 24 hours) at 07/04/18 0704 Last data filed at 07/04/18 0315 Gross per 24 hour Intake 400 ml Output 255 ml Net 145 ml PHYSICAL EXAM: General: Drowsy but easily arousable, no distress Cardiovascular: RRR (paced), right IJ Permacath placed Respiratory: Dullness in bases, scattered rhonchi, tachypnea, frequent cough Abdomen: Soft, obese, NT Extremities: WWP, small amount of edema in legs, left knee painless, without warmth Neurological: Alert and oriented x3 Rodriguez catheter present: Yes If so, reason: Acute kidney injury, critically ill DIAGNOSTIC STUDIES: Available data and images were reviewed personally. Significant results and findings are a ddressed here or in the Assessment and Plan. Recent Results (from the past 24 hour(s)) POC Glucose Result Value Ref Range Glucose, POC 146 (H) 70 - 109 mg/dL POC Glucose Result Value Ref Range Glucose, POC 139 (H) 70 - 109 mg/dL POC Glucose Result Value Ref Range Glucose, POC 144 (H) 70 - 109 mg/dL POC Glucose Result Value Ref Range Glucose, POC 186 (H) 70 - 109 mg/dL Renal Function Panel Result Value Ref Range Na 138 136 - 149 mmol/L K 4.2 3.5 - 5.1 mmol/L Cl 106 98 - 109 mmol/L CO2 27 24 - 31 mmol/L Anion Gap 5 3 - 16 mmol/L Glucose 144 (H) 70 - 109 mg/dL BUN 72 (H) 7 - 18 mg/dL Creatinine 2.68 (H) 0.60 - 1.30 mg/dL eGFR if not 24 (L) >=60 mL/min/1.73m2 Ca 8.8 8.3 - 10.5 mg/dL Albumin 2.4 (L) 3.2 - 5.0 g/dL Phosphorus 3.7 2.5 - 4.6 mg/dL BUN/Creatinine Ratio 26.9 POC Glucose Result Value Ref Range Glucose, POC 120 (H) 70 - 109 mg/dL Fl Cva Device Placement Result Date: 07/03/2018 This exam has been auto-finalized and the interpretation may exist elsewhere in the chart. Xr Chest 1 Vw Result Date: 07/03/2018 XR CHEST 1 VIEW 07/03/2018 4:55 PM HISTORY: post central line. COMPARISON: Multiple priors FINDINGS: Lines and tubes are stable. Median sternotomy wires are once again seen, many of w hich are fractured. Heart is enlarged. Diffuse thickening of the central bronchovascular mar kings. Minimal bibasilar atelectasis. No evidence of pneumothorax. No acute osseous abnormal ity. Remote fracture deformities of the ribs. IMPRESSION - New right internal jugular approa ch dual-lumen central catheter tip terminates in the upper/mid right atrium. Cardiomegaly. F indings are suggestive of mild diffuse interstitial pulmonary edema. Dictated and Signed by: Fadi Shell MD Electronically signed: 07/03/2018 7:09 PM Current Facility-Administered Medications: acetaminophen 1,000 mg Oral 3 times per day albumin 12.5 g Intravenous PRN albuterol-ipratropium 3 mL Nebulization RT Q6H aluminum & magnesium hydroxide-simethicone 30 mL Oral Q6H PRN aspirin 81 mg Oral Daily atorvaSTATin 40 mg Oral Nightly calcium carbonate 1,000 mg Oral Q2H PRN dextrose 12.5 g Intravenous PRN diphenhydrAMINE 12.5 mg Intravenous Q4H PRN Or diphenhydrAMINE 25 mg Oral Q4H PRN Or diphenhydrAMINE 25 mg Oral Q4H PRN docusate sodium 100 mg Oral BID doxycycline 100 mg Intravenous 2 times per day famotidine 20 mg Intravenous Daily heparin 500 Units Intravenous With each dialysis Heparin Infusion 200 Units/hr Intravenous Continuous insulin lispro 0-6 Units Subcutaneous 4x Daily WC and HS menthol throat lozenges 1 lozenge Buccal Q2H PRN norepinephrine 1-30 mcg/min Intravenous Titrated nystatin 500,000 Units Swish & Spit 4x Daily ondansetron 4 mg Intravenous Q6H PRN phenol 1-2 spray Mouth/Throat Q3H PRN polyethylene glycol 17 g Oral Daily PRN traZODone 50 mg Oral Nightly Total time of approximately 35 minutes was spent with the patient and/or patient's family, and/or on the patient's floor/unit, of which more than 50% was spent counseling and/or coord ination the patient's care as outlined above. Bruce Alcantar 07/04/2018 7:05 [facility] Cristal Denson, Sql Developer - 07/03/2018 1:22 PM PSTFormatting of this note might be different from t sharan original. RENAL DOSE ADJUSTMENT PER PHARMACY PROTOCOL: Subjective/Objective: David Kerr Jr. is a 72 y.o. year old male admitted on 06/26/2018 6:37 for CAP and CKD and is receiving FAMOTIDINE for stress ulcer prophylaxis. BP 116/46 | Pulse 70 | Temp 36.9 C (98.4 F) (Bladder) | Resp 20 | Ht 1.702 m (5' 7" ) | Wt 113.5 kg (250 lb 3.6 oz) | SpO2 92% | BMI 39.19 kg/m Intake/Output Summary (Last 24 hours) at 07/03/18 1322 Last data filed at 07/03/18 0600 Gross per 24 hour Intake 142.8 ml Output 981 ml Net -838.2 ml Recent Labs Lab 07/03/18 0416 07/02/18 0328 07/01/18 0332 CREA 2.29* 3.23* 2.75* Estimated Creatinine Clearance: 36 mL/min (A) (based on SCr of 2.29 mg/dL (H)). Date 07/03 Day of therapy 8 Serum Creatinine 2.29 CrCl (mL/min) 36 Dose - current 20 mg q12hr Dose - new 20 mg q24hr Assessment/Plan: 1. Pt is receiving sporadic HD: for consistent HD: dose adjustment is 20 mg q48hr 2. For pt safety will decrease dose of FAMOTIDINE from 20 mg q12hr to 20 mg q24hr. 3. Pharmacy will continue to follow and adjust dose as appropriate to clinical condition an d creatinine clearance changes RENAL DOSE ADJUSTMENT PROTOCOL Electronically signed by: Cristal Haro, Sql Developer 07/03/2018 13:22Electronicall y signed by Cristal Haro, Sql Developer at 07/03/2018 1:31 PM Silvina South MD - 07/03/2018 10:00 AM PST [facility] NEPHROLOGY progress note Patient: David Kerr Jr. : 1945 Hospital Day # 7 ASSESMENT AND PLAN 1. LORIE due to ATN, in setting of hypovolemia and septic shock. Initiated HD on 06/28/18 due to uremia. Left femoral vein HD catheter placed on 06/28/18. Reviewed outside labs from primary care's office. Pt had CKD stage 4 with serum creatinine around 2.4 mg/dL in Apr - May 2018; and started to have worsening of kidney function mid-2017, with serum creatinine increasing to 2.9 mg/dL (eGFR 21 mL/min), then to 3.2 mg/dL ( eGFR 19 mL/min), likely related to relative ischemia / cardiorenal syndrome. Given pt's advanced CKD, it is unclear if pt will have recovery of kidney function from thi s episode of LORIE. Will continue to provide dialysis support and monitor for renal recovery. -Pt is scheduled for tunneled HD line with Dr. Wallace. -Plan for HD tomorrow. 2. Acute respiratory distress, likely due to pneumonia and CHF. CXR with RLL PNA, cardiomegaly, and pulmonary edema. On abx for PNA. BIPAP PRN. 3. Septic shock, likely due to pneumonia, possible LLE cellulitis. Resolved. Off Norepi gtt since 06/30/18. 4. Malnutrition. -Nutrition consult. 24 HR EVENTS UOP 350 mL UF 1470 mL SUBJECTIVE Pt states he is ready to get out of here. Pt denies pain, chest pain, shortness of breath, abdominal pain. reports pt was restless last night, did not sleep well. Pt has minimal appetite. CURRENT MEDICATIONS Scheduled Meds: albuterol-ipratropium 3 mL Nebulization RT Q6H aspirin 81 mg Oral Daily atorvaSTATin 40 mg Oral Nightly ceFAZolin 2 g Intravenous Prior to Incision docusate sodium 100 mg Oral BID doxycycline 100 mg Intravenous 2 times per day famotidine 20 mg Intravenous BID insulin lispro 0-6 Units Subcutaneous 4x Daily WC and HS nystatin 500,000 Units Swish & Spit 4x Daily traZODone 50 mg Oral Nightly Continuous Infusions: norepinephrine Stopped (06/29/18 2304) PRN Meds:albumin, Hypoglycemia Management AND POCT Glucose AND dextrose, heparin, polyethylene glycol OBJECTIVE VITAL SIGNS: Vital sign ranges for last 24hrs: Input and output for last 24hrs: Temp: [36.2 C (97.2 F)-37.3 C (99.1 F)] 36.9 C (98.4 F) Pulse: [70-76] 70 Resp: [8-28] 20 BP: (100-148)/(27-88) 116/46 SpO2 Av.8 % Min: 87 % Max: 99 % Flow (L/min) Av.8 Min: 4 Max: 50 07/02 0701 - 07/03 0700 In: 192.8 [P.O.:50; I.V.:44.8] Out: 1820 [Urine:350] General: In no acute distress. Cardiac: Regular rate and rhythm, normal S1 and S2. Trace pitting LE peripheral edema. Chest: Normal respiratory effort. Decreased breath sounds at bases, otherwise clear. Abdomen: Obese, soft, non-tender, good bowel sounds. Neuro: Alert, interactive. Pt is able to track conversation better. +asterixis. Access: Left groin HD catheter removed, dressing is clean. LABORATORY DATA: Recent Labs Lab 07/01/18 0332 06/30/18 0402 06/29/18 0321 WBC 7.6 8.7 9.7 HGB 11.3* 11.9* 12.2* HCT 35.6* 36.2* 36.5* PLT 111* 80* 78* Recent Labs Lab 07/03/18 0416 07/02/18 0328 07/01/18 0332 06/30/18 0402 NA 133* 134* 134* 131* K 4.0 4.0 3.8 4.7 CL 101 101 101 98 CO2 25 26 25 24 BUN 59* 77* 62* 88* CREA 2.29* 3.23* 2.75* 3.22* CALCIUM 8.9 9.0 8.7 8.6 PHOS 2.5 -- 3.9 4.7* ALBUMIN 2.4* 2.3* 2.4* 2.4* GLU 137* 137* 121* 157* Recent Labs Lab 06/27/18 0230 MG 1.8 Diagnostic Studies: Available data and images were reviewed personally. Significant results and findings are ad dressed here or in the Assessment and Plan. Silvina Alcantar MD Electronically signed: 07/03/2018 10:00 [facility] asey, Melba Bolaños MD - 07/03/2018 9:12 AM PST [facility] --[place], [place] General Surgery Team Hospital Day: 8 DATE/TIME: 07/03/2018 9:12 72 y.o. year old male hospitalized with Severe sepsis with septic shock (HCC) with acute on chronic renal failure with need for hemodialysis access. The patient has no complaints today. He has not eaten anything today and we'll continue to be nothing by mouth for the case today. His is present in the room today. He would l genoveva to proceed with the placing of the tunneled dialysis catheter later on today with the un derstanding that this is an add-on case and will likely happen after 2:30 PM. CURRENT INFUSIONS Heparin Infusion Stopped (07/02/18 1405) norepinephrine Stopped (06/29/18 2304) CURRENT MEDICATIONS albuterol-ipratropium 3 mL Nebulization RT Q6H aspirin 81 mg Oral Daily atorvaSTATin 40 mg Oral Nightly ceFAZolin 2 g Intravenous Prior to Incision docusate sodium 100 mg Oral BID doxycycline 100 mg Intravenous 2 times per day famotidine 20 mg Intravenous BID heparin 500 Units Intravenous With each dialysis insulin lispro 0-6 Units Subcutaneous 4x Daily WC and HS nystatin 500,000 Units Swish & Spit 4x Daily sevelamer carbonate 1,600 mg Oral TID WC traZODone 50 mg Oral Nightly I personally reviewed the above medications. OBJECTIVE: Temp: 36.9 C (98.4 F) BP: 116/46 Pulse: 70 Resp: 20 SpO2: 93 % on Min/Max Temp past 24 hours:Temp Av.5 C (97.7 F) Min: 36.2 C (97.2 F) Max: 3 7.3 C (99.1 F) Intake/Output Summary (Last 24 hours) at 07/03/18 0912 Last data filed at 07/03/18 0600 Gross per 24 hour Intake 142.8 ml Output 1820 ml Net -1677.2 ml Wt. Admission: Weight: 109.5 kg (241 lb 6.5 oz) Wt. Current: Weight: 113.5 kg (250 lb 3 .6 oz) General: alert, appears stated age and cooperative, more alert today Heart: Regular rate and rhythm Lungs: And inspiratory wheezes Abdomen: Soft, nontender, bowel sounds present Chemistry: Lab Results Component Value Date NA 133 07/03/2018 K 4.0 07/03/2018 CO2 25 07/03/2018 BUN 59 07/03/2018 CREA 2.29 07/03/2018 GLU 137 07/03/2018 Hematology: ASSESSMENT AND PLAN: 72-year-old male with acute on chronic renal failure in need of hemodialysis access. He wa s consented for tunneled dialysis catheter placement yesterday and is nothing by mouth today . He wishes to proceed with the case today. 1. Nothing by mouth 2. Perioperative antibiotics 3. Consented yesterday for hemodialysis catheter placement for surgery today. Electronically Signed by: Melba Wallace MD, 07/03/2018 9:12 [facility] Chava Morales DO - 07/03/2018 7:30 AM PSTFormatting of this note mi ght be different from the original. [place], [place] HOSPITALIST PROGRESS NOTE Patient: David Kerr Jr. : 1945: Age: 72 y.o. MedRec: [id number] Admission date: 06/26/2018 Hospital day # : 7 Physician author: Chava Werner DO Today: 07/03/2018 Assessment and Hospital Course Active Hospital Problems Diagnosis Severe sepsis with septic shock Pneumonia due to infectious organism Cellulitis of left lower extremity Acute kidney injury superimposed on chronic kidney disease Type 2 diabetes mellitus with stage 4 chronic kidney disease, without long-term current use of insulin Acute metabolic encephalopathy Acute on chronic systolic heart failure Obesity, morbid Resolved Hospital Problems Diagnosis No resolved problems to display. HPI from H&P: Mr Kerr is a 72 y.o. male with a past medical history significant for ische keshawn cardiomyopathy, type II diabetes mellitus, essential hypertension, EVITA, BPH, F/P AICD, c ongestive heart failure who presented to the ED with progressive weakness, anorexia, produc tive cough, and SOB. History was taken from both the patient and his both are very poo r historians and really did not give a very clear history. About 3 weeks ago he apparently went to see his primary care provider at the [facility] and complained of generalize d swelling and abdominal distention. He was diagnosed with decompensated heart failure and f luid overload and metolazone was added to his diuretic regimen. He was asked to take this 3 times a week. When he went back for a follow-up visit on 19 June he had lost 42 miriam nds in fluid. He said he was feeling better at that time. Then about a week or two ago he started feeling progressively weaker and developed a cough productive of yellowish sputum. He's also been feeling more short of breath than usual. His appetite is completely gone and he has barely been eating or drinking much in the past week. His decided to bring him to the ER today because he was feeling so weak he could barely stand and she was worried ab out his health. Further evaluation here revealed a probable right lower lobe pneumonia and acute kidney injury superimposed on chronic kidney disease stage IV. His creatinine 2 weeks ago was 3.2 with a BUN of 129. I don't have any labs before then so I'm not sure whether t his is actually his baseline or not. In any event today's creatinine is 7.03 which is much worse. In ER, U/S duplex of left leg was negative for DVT. CXR showed a consolidation of RLL. Serum creatinine was elevated to 7.03 mg/dL, BUN 166 mg/dL. Serum potassium is 3.7 meq/L. Hospital course: He was admitted for LORIE on CKD and sepsis due to pneumonia and/or left left cellulitis/burs itis. He was started on ceftriaxone and doxycycline. He was initially given fluid for the AK I with minimum improvement of his renal function. He became fluid overload and his respirato ry status declined. The fluid was stopped and he was put on HFNC and BIPAP. He initially was resistant to BIPAP. Dialysis line placed and he was started on dialysis. His urine producti on is minimum. Bun and Cr improved. A vas cath will be place on 07/03. He completed a 5 days course of ceftriaxone. He is currently on day 7/14 days for the bursitis/cellulitis. His pn a and cellulitis/bursitis symptoms are resolving. Palliatve care was consulted and his code status was changed from full to partial. His hospitalization was complicated by metabolic ac moapa encephalopathy likely due to hypercapnia and uremia. This is resolving with BiPAP use an d dialysis. Plan # Acute kidney injury superimposed on CKD IV Spoke to patient and he is fine with continuing dialysis if need to. Initially, told p alliative care that he would never want dialysis because of experiences with family members who were on dialysis. Cr and Bun improved but urine output is minimum. Dialysis cath placed in left femoral on 06/28. Dialysis started on 06/28. Acute likely due to aggressive diuretics . He likely has diabetic nephropathy and suspect that he is stage III or IV at baseline. Jimmy ing some urine but have decrease since HD. Urine is very dark. - Removed left femoral vein. Going for vas cath today. - monitor his input and output strictly as well as his daily weights - dialysis per nephro - consulted nephrology, Dr. Silvina Alcantar for further recommendations regarding his renal failure # Pneumonia due to infectious organism # Acute respiratory failure with hypoxia and hypercapnia # EVITA Resolving. Mycoplasma IgG is high and Igm is high normal. Legionella and strep pneu are ne gative. Completed azithromycin. Viral panel negative. Completed 5 days course of IV ceftriax one. - F/U sputum culture - dialysis to remove fluid # Sepsis(POA) # Septic Shock Resolving. Most likely due to the pneumonia but there is a possibility that it could be fro m the cellulitis/bursitis as well. Off levophed on 06/30 - Follow-up on blood cultures - abx as above - stopped IVF due to fluid overload # Acute metabolic encephalopathy # Anisorcoria Resolving. Multifactorial from hypercapnia, sepsis, and uremia. Paged by nurse on 06/28 who noted that his right pupil was larger than the left. No other neurological symptoms. 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 Patient does have a hx of cataract surgery. - treat underlying problems as above # Cellulitis left knee versus prepatellar bursitis: Resolving. Pain is resolving. Questionable cellulitis because of the presentation. Likely p repatellar bursitis because there is only pain with palpation and movement. He was given a d ose of vancomycin. - cont doxy for 7 days # Chronic systolic heart failure with acute exacerbation Improving. Acute exacerbation from fluid overload. His EF is 35% at baseline - hold his diuretic therapy for now until his renal function recovers somewhat - Continue to monitor his input and output and daily weight - dialysis as above # Uncontrolled type II diabetes mellitus His A1c is elevated at 7.7 so it is not at goal. Because he is hypoglycemic today and has markedly reduced renal function, continue to hold oral hypoglycemic medications for the time being. - cont low-dose of SSI - POCT - diet # Elevated TRANSAMINASES: Improving. His LFTs from 06/19 were within the normal range but on admission the AST is mar kedly elevated. US of abdomen with sludge in the gallbladder but no other findings suggestiv e of acute cholecystitis. Mild hepatomegaly and borderline splenomegaly. He may have some un derlying liver disease. - cont to monitor LFTs # Thrombocytopenia Stable. This could be medication induced as a result of his intercurrent infection. He may also have nonalcoholic steatohepatitis causing chronic liver disease. - trend his platelet count # Acute hyponatremia Improving. This maybe due to water retention and/or SIADH - Continue to monitor - fluid restriction # Morbid obesity with a BMI greater than 35 He would benefit from outpatient follow-up with a animal nutrition teacher # Moderate protein calorie malnutrition: The patient is at risk for this because he has mandi dly eaten in the past 2 weeks. - consulted nutrition services to give us recommendations regarding improving his nutrition al status Code: Partial DVT ppx: SCDs Dispo: SNF in 2-3 days. Possibly will need dialysis. Palliative care consulted to discuss goal of care, POLST, and advance directive. Allergies: Allergies Allergen Reactions Morphine Other (See Comments) Changes personality to "mean" "get mean" Current Medications: Current Facility-Administered Medications Medication Dose Route Frequency Provider Last Rate Last Dose albumin 25% IVPB 12.5 g 12.5 g Intravenous PRN Silvina Alcantar MD albuterol-ipratropium 2.5-0.5 mg/3 mL nebulizer solution 3 mL 3 mL Nebulization RT Q6H Mabel Jaimes MD 3 mL at 07/03/18 0331 aspirin EC tablet 81 mg 81 mg Oral Daily Mabel Jaimes MD Stopped at 07/02/18 105 atorvaSTATin (LIPITOR) tablet 40 mg 40 mg Oral Nightly Mabel Jaimes MD 40 mg at 07/02/182034 ceFAZolin (ANCEF, KEFZOL) 100 mg/mL IV syringe 2 g 2 g Intravenous Prior to Incision K velma Wallace MD dextrose 50% injection 12.5 g 12.5 g Intravenous PRN Mabel Jaimes MD docusate sodium (COLACE) capsule 100 mg 100 mg Oral BID Mabel Jaimes MD 100 m g at 07/02/182034 doxycycline (VIBRAMYCIN) 100 mg in sodium chloride 0.9% 100 mL IVPB 100 mg Intravenous 2 times per day Chava Wernre DO 100 mL/hr at 07/02/182056 100 mg at 07/02/182056 famotidine (PEPCID) injection 20 mg 20 mg Intravenous BID Mabel Jaimes MD 20 mg at 07/02/182056 heparin 1,000 units/mL injection 1,500-6,000 Units 1,500-6,000 Units Intracatheter PRN Silvina Alcantar MD 2,800 Units at 06/30/181939 heparin 1,000 units/mL injection 500 Units 500 Units Intravenous With each dialysis Je tino Alcantar MD 500 Units at 07/02/18 1007 heparin in half-normal saline 50 units/mL infusion 200 Units/hr Intravenous Continuous PRN Silvina Alcantar MD Stopped at 07/02/18 1405 insulin lispro (humaLOG KWIKPEN) injection (pen) 0-6 Units 0-6 Units Subcutaneous 4x D aily WC and HS Mabel Jaimes MD Stopped at 07/02/18 2103 norepinephrine in saline (LEVOPHED) 16 mcg/mL infusion 1-30 mcg/min Intravenous Titrat ed Mabel Jaimes MD Stopped at 06/29/18 230 nystatin (MYCOSTATIN) 100,000 units/mL suspension 500,000 Units 500,000 Units Swish & Spit 4x Daily Silvina Alcantar MD 500,000 Units at 07/02/182035 polyethylene glycol (MIRALAX) powder 17 g 17 g Oral Daily PRN Mabel Jaimes MD sevelamer carbonate (RENVELA) tablet 1,600 mg 1,600 mg Oral TID Rolan Alba 1,600 mg at 07/02/18 1726 sodium chloride 0.9% flush 100 mL 100 mL Intracatheter Q30 Min PRN Rolan Alba 100 mL at 06/30/18 1310 traZODone (DESYREL) tablet 50 mg 50 mg Oral Nightly Mabel Jaimes MD 50 mg at 07/02/182034 Current Infusions: Heparin Infusion Stopped (07/02/18 1405) norepinephrine Stopped (06/29/182303) Objective Data Point of care glucose Recent Labs Lab 07/03/18 0633 07/02/18 2055 07/02/18 1634 07/02/18 1227 07/02/18 0649 07/01/18 2124 POCGLU 135* 149* 179* 150* 117* 171* Labs last 24 hours Recent Results (from the past 24 hour(s)) POC Glucose Collection Time: 07/02/18 12:27 Result Value Ref Range Glucose, POC 150 (H) 70 - 109 mg/dL POC Glucose Collection Time: 07/02/18 16:34 Result Value Ref Range Glucose, POC 179 (H) 70 - 109 mg/dL POC Glucose Collection Time: 07/02/18 20:55 Result Value Ref Range Glucose, POC 149 (H) 70 - 109 mg/dL Renal Function Panel Collection Time: 07/03/18 4:16 Result Value Ref Range Na 133 (L) 136 - 149 mmol/L K 4.0 3.5 - 5.1 mmol/L Cl 101 98 - 109 mmol/L CO2 25 24 - 31 mmol/L Anion Gap 7 3 - 16 mmol/L Glucose 137 (H) 70 - 109 mg/dL BUN 59 (H) 7 - 18 mg/dL Creatinine 2.29 (H) 0.60 - 1.30 mg/dL eGFR if not 28 (L) >=60 mL/min/1.73m2 Ca 8.9 8.3 - 10.5 mg/dL Albumin 2.4 (L) 3.2 - 5.0 g/dL Phosphorus 2.5 2.5 - 4.6 mg/dL BUN/Creatinine Ratio 25.8 POC Glucose Collection Time: 07/03/18 6:33 Result Value Ref Range Glucose, POC 135 (H) 70 - 109 mg/dL Micro results Microbiology Results (72 hrs) No results found for the last 72 hours. Radiology results No results found. Vitals Ranges: Temp: [36.2 C (97.2 F)-37.3 C (99.1 F)] 37 C (98.6 F) Pulse: [70-76] 70 Resp: [8-28] 21 BP: (100-148)/(27-88) 120/54 Vitals: Temp: 37 C (98.6 F) BP: 120/54 Pulse: 70 Resp: 21 SpO2: 96 % SpO2 96 % on nasal cannula at flow rate 4L/min Subjective CC No new complaint today. ROS See above Exam GA: NAD HEENT: EOMI, MMM, PERRL Neck: no JVD, no LDN Cardiac: rrr, no m/g/r, +1LE swelling Lung: expiratory wheezing bilaterally. decreased lung sound at base, normal respiratory eff ort. On BIPAP Abdomen: obese, soft, nt/nd, nabs Skin: Large hyperpigmented patch on the left knee with satellites hyperpigmented macules an d patches on the medial and lateral thigh. Mild warmth. No tenderness only over the patella. Mild effusion. ROM full without pain. Pych: normal mood and affect Chava Werner DO 07/03/2018 7:30 [facility] Portions of this chart may have been created with valuescope voice recognition software. Occasi onal wrong-word or sound-alike substitutions may have occurred due to the inherent al itations of voice recognition software. Please read the chart carefully and recognize, using context, where these substitutions have occurred Silvina South MD - 07/02/2018 11:44 AM PST [facility] progress note Patient: David Kerr Jr. : 1945 Hospital Day # 6 ASSESMENT AND PLAN 1. LORIE due to ATN, in setting of hypovolemia and septic shock. Initiated HD on 06/28/18 due to uremia. Left femoral vein HD catheter placed on 06/28/18. Reviewed outside labs from primary care's office. Pt had CKD stage 4 with serum creatinine around 2.4 mg/dL in Apr - May 2018; and started to have worsening of kidney function mid-2017, with serum creatinine increasing to 2.9 mg/dL (eGFR 21 mL/min), then to 3.2 mg/dL ( eGFR 19 mL/min), likely related to relative ischemia / cardiorenal syndrome. Given pt's advanced CKD, it is unclear if pt will have recovery of kidney function from thi s episode of LORIE. Will continue to provide dialysis support and monitor for renal recovery. -HD today via left femoral catheter. Will pull left femoral catheter after dialysis today. -Consult general surgery about placement of tunneled HD line. 2. Acute respiratory distress, likely due to pneumonia and CHF. CXR with RLL PNA, cardiomegaly, and pulmonary edema. On abx for PNA. BIPAP PRN. 3. Septic shock, likely due to pneumonia, possible LLE cellulitis. Resolved. Off Norepi gtt since 06/30/18. 4. Malnutrition. Will request nutrition consult. 24 HR EVENTS UOP 225 mL (dark brown urine) SUBJECTIVE Family at bedside. Pt states he is feeling ok. Denies complaints. Pt states he is happy to eat more. Per RN, pt had BM last evening. states pt's mental status and ability to carry conversation are similar to yesterday. CURRENT MEDICATIONS Scheduled Meds: albuterol-ipratropium 3 mL Nebulization RT Q6H aspirin 81 mg Oral Daily atorvaSTATin 40 mg Oral Nightly docusate sodium 100 mg Oral BID doxycycline 100 mg Intravenous 2 times per day famotidine 20 mg Intravenous BID heparin 500 Units Intravenous With each dialysis insulin lispro 0-6 Units Subcutaneous 4x Daily WC and HS nystatin 500,000 Units Swish & Spit 4x Daily sevelamer carbonate 1,600 mg Oral TID WC traZODone 50 mg Oral Nightly Continuous Infusions: Heparin Infusion 200 Units/hr (07/02/18 1008) norepinephrine Stopped (06/29/18 2304) PRN Meds:albumin, Hypoglycemia Management AND POCT Glucose AND dextrose, heparin, Heparin Infusion, polyethylene glycol, sodium chloride 0.9% OBJECTIVE VITAL SIGNS: Vital sign ranges for last 24hrs: Input and output for last 24hrs: Temp: [36.3 C (97.3 F)-37.8 C (100 F)] 36.3 C (97.3 F) Pulse: [70-71] 70 Resp: [14-32] 24 BP: (105-141)/(55-79) 131/79 SpO2 Av.8 % Min: 90 % Max: 99 % Flow (L/min) Av.3 Min: 20 Max: 25 07/01 0701 - 07/02 0700 In: 750 [P.O.:600; I.V.:20] Out: 225 [Urine:225] General: In no acute distress. Cardiac: Regular rate and rhythm, normal S1 and S2. Trace pitting LLE peripheral edema. Chest: Normal respiratory effort. Anteriorly clear. Abdomen: Obese, soft, non-tender, good bowel sounds. Neuro: Alert, interactive. Not tracking conversation reliable, but able to answer questi ons appropriately. Access: Left groin HD catheter in place -- dialysis in progress. LABORATORY DATA: Recent Labs Lab 07/01/18 0332 06/30/18 0402 06/29/18 0321 WBC 7.6 8.7 9.7 HGB 11.3* 11.9* 12.2* HCT 35.6* 36.2* 36.5* PLT 111* 80* 78* Recent Labs Lab 07/02/18 0328 07/01/18 0332 06/30/18 0402 06/29/18 0321 NA 134* 134* 131* 128* K 4.0 3.8 4.7 3.9 CL 101 101 98 93* CO2 26 25 24 24 BUN 77* 62* 88* 118* CREA 3.23* 2.75* 3.22* 4.23* CALCIUM 9.0 8.7 8.6 8.4 PHOS -- 3.9 4.7* 6.4* ALBUMIN 2.3* 2.4* 2.4* 2.6* GLU 137* 121* 157* 115* Recent Labs Lab 06/27/18 0230 06/26/18 0724 MG 1.8 1.8 Diagnostic Studies: Available data and images were reviewed personally. Significant results and findings are ad dressed here or in the Assessment and Plan. Silvina Alcantar MD Electronically signed: 07/02/2018 11:44 [facility] Chava Morales DO - 07/02/2018 7:15 AM PST [place] HOSPITALIST PROGRESS NOTE Patient: David Kerr Jr. : 1945: Age: 72 y.o. MedRec: [id number] Admission date: 06/26/2018 Hospital day # : 6 Physician author: Chava Werner DO Today: 07/02/2018 Assessment and Hospital Course Active Hospital Problems Diagnosis Severe sepsis with septic shock Pneumonia due to infectious organism Cellulitis of left lower extremity Acute kidney injury superimposed on chronic kidney disease Type 2 diabetes mellitus with stage 4 chronic kidney disease, without long-term current use of insulin Acute metabolic encephalopathy Acute on chronic systolic heart failure Obesity, morbid Resolved Hospital Problems Diagnosis No resolved problems to display. HPI from H&P: Mr Kerr is a 72 y.o. male with a past medical history significant for ische keshawn cardiomyopathy, type II diabetes mellitus, essential hypertension, BPH, F/P AICD, conges tive heart failure who presented to the ED today with progressive weakness, anorexia, produc tive cough, and SOB. History was taken from both the patient and his both are very poo r historians and really did not give a very clear history. About 3 weeks ago he apparently went to see his primary care provider at the [facility] and complained of generalize d swelling and abdominal distention. He was diagnosed with decompensated heart failure and f luid overload and metolazone was added to his diuretic regimen. He was asked to take this 3 times a week. When he went back for a follow-up visit on 19 June he had lost 42 miriam nds in fluid. He said he was feeling better at that time. Then about a week or two ago he started feeling progressively weaker and developed a cough productive of yellowish sputum. He's also been feeling more short of breath than usual. His appetite is completely gone and he has barely been eating or drinking much in the past week. His decided to bring him to the ER today because he was feeling so weak he could barely stand and she was worried ab out his health. Further evaluation here revealed a probable right lower lobe pneumonia and acute kidney injury superimposed on chronic kidney disease stage IV. His creatinine 2 weeks ago was 3.2 with a BUN of 129. I don't have any labs before then so I'm not sure whether t his is actually his baseline or not. In any event today's creatinine is 7.03 which is much worse. In ER, U/S duplex of left leg was negative for DVT. CXR showed a consolidation of RLL. Serum creatinine was elevated to 7.03 mg/dL, BUN 166 mg/dL. Serum potassium is 3.7 meq/L. Plan # Pneumonia due to infectious organism # Acute respiratory failure with hypoxia and hypercapnia # EVITA Resolving. Mycoplasma IgG is high and Igm is high normal. Legionella and strep pneu are ne gative. Completed azithromycin. Viral panel negative. Completed 5 days course of IV ceftriax one. - F/U sputum culture - dialysis to remove fluid # Sepsis(POA) # Septic Shock Resolving. Most likely due to the pneumonia but there is a possibility that it could be fro m the cellulitis as well. Off levophed on 06/30 - Follow-up on blood cultures - abx as above - stopped IVF due to fluid overload # Acute kidney injury superimposed on CKD IV Improving. Dialysis cath placed in left femoral on 06/28. Dialysis started on 06/28. He like ly has diabetic nephropathy and suspect that he is stage III or IV at baseline. Making some urine but have decrease since HD. Urine is very dark. Spoke to nephrology. - dialysis cath in left femoral vein - monitor his input and output strictly as well as his daily weights - dialysis per nephro - consulted nephrology, Dr. Silvina Alcantar for further recommendations regarding his renal failure # Acute metabolic encephalopathy # Anisorcoria Resolving. Multifactorial from hypercapnia, sepsis, and uremia. Paged by nurse on 06/28 who noted that his right pupil was larger than the left. No other neurological symptoms. 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 Patient does have a hx of cataract Hx. Conside ring medications vs metabolites toxicity. - treat underlying problems as above # Cellulitis left knee versus prepatellar bursitis: Resolving. Pain is resolving. Questionable cellulitis because of the presentation. Likely p repatellar bursitis because there is only pain with palpation and movement. He was given a d ose of vancomycin. - cont doxy for 7 days # Chronic systolic heart failure with acute exacerbation Improving. Acute exacerbation from fluid overload. His EF is 35% at baseline - hold his diuretic therapy for now until his renal function recovers somewhat - Continue to monitor his input and output and daily weight - dialysis as above # Uncontrolled type II diabetes mellitus His A1c is elevated at 7.7 so it is not at goal. Because he is hypoglycemic today and has markedly reduced renal function, continue to hold oral hypoglycemic medications for the time being. - cont low-dose of SSI - POCT - diet # Elevated TRANSAMINASES: Improving. His LFTs from 06/19 were within the normal range but on admission the AST is mar kedly elevated. US of abdomen with sludge in the gallbladder but no other findings suggestiv e of acute cholecystitis. Mild hepatomegaly and borderline splenomegaly. He may have some un derlying liver disease. - cont to monitor LFTs # Thrombocytopenia Stable. This could be medication induced as a result of his intercurrent infection. He may also have nonalcoholic steatohepatitis causing chronic liver disease. - trend his platelet count # Acute hyponatremia Improving. This maybe due to water retention and/or SIADH - Continue to monitor - fluid restriction # Morbid obesity with a BMI greater than 35 He would benefit from outpatient follow-up with a animal nutrition teacher # Moderate protein calorie malnutrition: The patient is at risk for this because he has mandi dly eaten in the past 2 weeks. - consulted nutrition services to give us recommendations regarding improving his nutrition al status Code: Partial DVT ppx: SCDs Dispo: tbd. Likely will need SNF. Palliative care consulted to discuss goal of care, POLST, and advance directive. Patient is critically ill and critical care time now exceeds 35 minutes. Allergies: Allergies Allergen Reactions Morphine Other (See Comments) Changes personality to "mean" "get mean" Current Medications: Current Facility-Administered Medications Medication Dose Route Frequency Provider Last Rate Last Dose albumin 25% IVPB 12.5 g 12.5 g Intravenous PRN Silvina Alcantar MD albuterol-ipratropium 2.5-0.5 mg/3 mL nebulizer solution 3 mL 3 mL Nebulization RT Q6H Mabel Jaimes MD 3 mL at 07/02/18 0456 aspirin EC tablet 81 mg 81 mg Oral Daily Mabel Jaimes MD 81 mg at 07/01/18 10 02 atorvaSTATin (LIPITOR) tablet 40 mg 40 mg Oral Nightly Mabel Jaimes MD 40 mg at 07/01/182124 dextrose 50% injection 12.5 g 12.5 g Intravenous PRN Mabel Jaimes MD docusate sodium (COLACE) capsule 100 mg 100 mg Oral BID Mabel Jaimes MD 100 m g at 07/01/182124 doxycycline (VIBRAMYCIN) 100 mg in sodium chloride 0.9% 100 mL IVPB 100 mg Intravenous 2 times per day Chava Werner DO 100 mL/hr at 07/01/182125 100 mg at 07/01/182125 famotidine (PEPCID) injection 20 mg 20 mg Intravenous BID Mabel Jaimes MD 20 mg at 07/01/182124 heparin 1,000 units/mL injection 1,500-6,000 Units 1,500-6,000 Units Intracatheter PRN Silvina Alcantar MD 2,800 Units at 06/30/181939 heparin 1,000 units/mL injection 500 Units 500 Units Intravenous With each dialysis Yonas Alcantar MD 500 Units at 06/30/18 1258 heparin in half-normal saline 50 units/mL infusion 200 Units/hr Intravenous Continuous PRN Silvina Alcantar MD insulin lispro (humaLOG KWIKPEN) injection (pen) 0-6 Units 0-6 Units Subcutaneous 4x D aily and HS Mabel Jaimes MD Stopped at 06/30/182115 norepinephrine in saline (LEVOPHED) 16 mcg/mL infusion 1-30 mcg/min Intravenous Titrat ed Mabel Jaimes MD Stopped at 06/29/182303 nystatin (MYCOSTATIN) 100,000 units/mL suspension 500,000 Units 500,000 Units Swish & Spit 4x Daily Silvina Alcantar MD 500,000 Units at 07/01/182124 polyethylene glycol (MIRALAX) powder 17 g 17 g Oral Daily PRN Mabel Jaimes MD sevelamer carbonate (RENVELA) tablet 1,600 mg 1,600 mg Oral TID Rolan Alba 1,600 mg at 07/01/18 1624 sodium chloride 0.9% flush 100 mL 100 mL Intracatheter Q30 Min PRN Rolan Alba 100 mL at 06/30/18 1310 traZODone (DESYREL) tablet 50 mg 50 mg Oral Nightly Mabel Jaimes MD 50 mg at 07/01/182124 Current Infusions: Heparin Infusion norepinephrine Stopped (06/29/182303) Objective Data Point of care glucose Recent Labs Lab 07/02/18 0649 07/01/18 2124 07/01/18 1623 07/01/18 1121 07/01/18 0616 06/30/18 2050 POCGLU 117* 171* 133* 133* 104 136* Labs last 24 hours Recent Results (from the past 24 hour(s)) POC Glucose Collection Time: 07/01/18 11:21 Result Value Ref Range Glucose, POC 133 (H) 70 - 109 mg/dL POC Glucose Collection Time: 07/01/18 16:23 Result Value Ref Range Glucose, POC 133 (H) 70 - 109 mg/dL POC Glucose Collection Time: 07/01/18 21:24 Result Value Ref Range Glucose, POC 171 (H) 70 - 109 mg/dL Comprehensive Metabolic Panel Collection Time: 07/02/18 3:28 Result Value Ref Range Na 134 (L) 136 - 149 mmol/L K 4.0 3.5 - 5.1 mmol/L Cl 101 98 - 109 mmol/L CO2 26 24 - 31 mmol/L Anion Gap 7 3 - 16 mmol/L Glucose 137 (H) 70 - 109 mg/dL BUN 77 (H) 7 - 18 mg/dL Creatinine 3.23 (H) 0.60 - 1.30 mg/dL eGFR if not 19 (L) >=60 mL/min/1.73m2 Ca 9.0 8.3 - 10.5 mg/dL Albumin 2.3 (L) 3.2 - 5.0 g/dL Bilirubin Total 1.5 0.1 - 1.5 mg/dL Total Protein 6.5 6.0 - 7.8 g/dL AST 29 10 - 42 U/L ALT 20 6 - 45 U/L Alkaline Phosphatase 131 (H) 40 - 110 U/L Globulin 4.2 (H) 2.1 - 3.8 g/dL Albumin/Globulin Ratio 0.5 (L) 0.8 - 2.0 BUN/Creatinine Ratio 23.8 POC Glucose Collection Time: 07/02/18 6:49 Result Value Ref Range Glucose, POC 117 (H) 70 - 109 mg/dL Micro results Microbiology Results (72 hrs) No results found for the last 72 hours. Radiology results No results found. Vitals Ranges: Temp: [36.4 C (97.5 F)-37.8 C (100 F)] 36.4 C (97.5 F) Pulse: [70-71] 71 Resp: [14-32] 14 BP: (105-133)/(55-72) 125/65 Vitals: Temp: 36.4 C (97.5 F) BP: 125/65 Pulse: 71 Resp: 14 SpO2: 98 % SpO2 98 % on high-flow nasal cannula at flow rate 20L/min Subjective CC Asleep on bipap ROS See above Exam GA: NAD HEENT: EOMI, MMM, PERRL Neck: no JVD, no LDN Cardiac: rrr, no m/g/r, +1LE swelling Lung: coarse lung sounds in the upper lung aldridge, decreased lung sound at base, normal res piratory effort. On BIPAP Abdomen: obese, soft, nt/nd, nabs Skin: Large hyperpigmented patch on the left knee with satellites hyperpigmented macules an d patches on the medial and lateral thigh. Mild warmth. No tenderness only over the patella. Mild effusion. ROM full without pain. Pych: normal mood and affect Chava Werner DO 07/02/2018 7:15 [facility] Portions of this chart may have been created with valuescope voice recognition software. Occasi onal wrong-word or sound-alike substitutions may have occurred due to the inherent al itations of voice recognition software. Please read the chart carefully and recognize, using context, where these substitutions have occurred Silvina South MD - 07/01/2018 11:09 AM PST [facility] NEPHROLOGY progress note Patient: David Kerr Jr. : 1945 Hospital Day # 5 ASSESMENT AND PLAN 1. LORIE due to ATN, in setting of hypovolemia and septic shock. Initiated HD on 06/28/18 due to uremia. Left femoral vein HD catheter placed on 06/28/18. Reviewed outside labs from primary care's office. Pt had CKD stage 4 with serum creatinine around 2.4 mg/dL in Apr - May 2018; and started to have worsening of kidney function mid-N 2017, with serum creatinine increasing to 2.9 mg/dL (eGFR 21 mL/min), then to 3.2 mg/dL ( eGFR 19 mL/min), likely related to relative ischemia / cardiorenal syndrome. Given pt's advanced CKD, it is unclear if pt will have recovery of kidney function from thi s episode of LORIE. Will continue to provide dialysis support and monitor for renal recovery. -Flush rodriguez catheter. -HD tomorrow, t=5 hrs. 2. Acute respiratory distress, likely due to pneumonia and CHF. CXR with RLL PNA, cardiomegaly, and pulmonary edema. On abx for PNA. 3. Septic shock, likely due to pneumonia, possible LLE cellulitis. Resolved. Off Norepi gtt since 06/30/18. On ceftriaxone for CAP. On doxycycline for LLE rash. 4. Hyperphosphatemia. Resolved. -Continue Renvela with meals. 5. Thrombocytopenia. Improved. 6. Anemia. Stable. 24 HR EVENTS 3rd HD treatment completed, UF 1.7 Liters SUBJECTIVE Pt is calm and more alert this morning. Pt is still not tracking conversation well. Darinel s pain. CURRENT MEDICATIONS Scheduled Meds: albuterol-ipratropium 3 mL Nebulization RT Q6H aspirin 81 mg Oral Daily atorvaSTATin 40 mg Oral Nightly docusate sodium 100 mg Oral BID doxycycline 100 mg Intravenous 2 times per day famotidine 20 mg Intravenous BID heparin 500 Units Intravenous With each dialysis insulin lispro 0-6 Units Subcutaneous 4x Daily WC and HS sevelamer carbonate 1,600 mg Oral TID WC traZODone 50 mg Oral Nightly Continuous Infusions: Heparin Infusion norepinephrine Stopped (06/29/18 2304) PRN Meds:albumin, Hypoglycemia Management AND POCT Glucose AND dextrose, heparin, Heparin Infusion, polyethylene glycol, sodium chloride 0.9% OBJECTIVE VITAL SIGNS: Vital sign ranges for last 24hrs: Input and output for last 24hrs: Temp: [36.5 C (97.7 F)-38.1 C (100.6 F)] 37.1 C (98.8 F) Pulse: [69-77] 71 Resp: [16-29] 23 BP: (86-120)/(38-94) 117/61 SpO2 Av.3 % Min: 88 % Max: 99 % Flow (L/min) Av.5 Min: 28 Max: 30 12 0701 - 07/01 0700 In: 395 [P.O.:120; I.V.:25] Out: 1780 General: In no acute distress. ENT: White plaque on tongue. Cardiac: Regular rate and rhythm, normal S1 and S2. Trace pitting LLE peripheral edema. Chest: Normal respiratory effort. On high flow by nasal cannula. Expiratory wheezes @ r ight base. Otherwise, moving air well. Abdomen: Obese, soft, non-tender, normal bowel sounds. Neuro: More alert this morning. LABORATORY DATA: Recent Labs Lab 07/01/18 0332 06/30/18 0402 06/29/18 0321 WBC 7.6 8.7 9.7 HGB 11.3* 11.9* 12.2* HCT 35.6* 36.2* 36.5* PLT 111* 80* 78* Recent Labs Lab 07/01/18 0332 06/30/18 0402 06/29/18 0321 NA 134* 131* 128* K 3.8 4.7 3.9 CL 101 98 93* CO2 25 24 24 BUN 62* 88* 118* CREA 2.75* 3.22* 4.23* CALCIUM 8.7 8.6 8.4 PHOS 3.9 4.7* 6.4* ALBUMIN 2.4* 2.4* 2.6* GLU 121* 157* 115* Recent Labs Lab 06/27/18 0230 06/26/18 0724 MG 1.8 1.8 Diagnostic Studies: Available data and images were reviewed personally. Significant results and findings are ad dressed here or in the Assessment and Plan. Silvina Alcantar MD Electronically signed: 07/01/2018 11:09 [facility] NEPHROLOGY Chava Morales DO - 07/01/2018 7:29 AM PST [place] [place] H[facility]PITALIST PROGRESS NOTE Patient: David Kerr Jr. : 1945: Age: 72 y.o. MedRec: [id number] Admission date: 06/26/2018 Hospital day # : 5 Physician author: Chava Werner DO Today: 07/01/2018 Assessment and Hospital Course Active Hospital Problems Diagnosis Severe sepsis with septic shock Pneumonia due to infectious organism Cellulitis of left lower extremity Acute kidney injury superimposed on chronic kidney disease Type 2 diabetes mellitus with stage 4 chronic kidney disease, without long-term current use of insulin Acute metabolic encephalopathy Acute on chronic systolic heart failure Obesity, morbid Resolved Hospital Problems Diagnosis No resolved problems to display. HPI from H&P: Mr Kerr is a 72 y.o. male with a past medical history significant for ische keshawn cardiomyopathy, type II diabetes mellitus, essential hypertension, BPH, F/P AICD, conges tive heart failure who presented to the ED today with progressive weakness, anorexia, produc tive cough, and SOB. History was taken from both the patient and his both are very poo r historians and really did not give a very clear history. About 3 weeks ago he apparently went to see his primary care provider at the [facility] and complained of generalize d swelling and abdominal distention. He was diagnosed with decompensated heart failure and f luid overload and metolazone was added to his diuretic regimen. He was asked to take this 3 times a week. When he went back for a follow-up visit on 19 June he had lost 42 miriam nds in fluid. He said he was feeling better at that time. Then about a week or two ago he started feeling progressively weaker and developed a cough productive of yellowish sputum. He's also been feeling more short of breath than usual. His appetite is completely gone and he has barely been eating or drinking much in the past week. His decided to bring him to the ER today because he was feeling so weak he could barely stand and she was worried ab out his health. Further evaluation here revealed a probable right lower lobe pneumonia and acute kidney injury superimposed on chronic kidney disease stage IV. His creatinine 2 weeks ago was 3.2 with a BUN of 129. I don't have any labs before then so I'm not sure whether t his is actually his baseline or not. In any event today's creatinine is 7.03 which is much worse. In ER, U/S duplex of left leg was negative for DVT. CXR showed a consolidation of RLL. Serum creatinine was elevated to 7.03 mg/dL, BUN 166 mg/dL. Serum potassium is 3.7 meq/L. Plan # Pneumonia due to infectious organism # Acute respiratory failure with hypoxia and hypercapnia # EVITA Resolving. Breathing is difficult this morning because he is flat and crunched up in the be d. He is on HFNC now. BIPAP at night and tolerating it now. Admitted for CAP. No diuresis a t this time because of hypotension. Making some urine. Mycoplasma IgG is high and Igm is hig h normal. Legionella and strep pneu are negative. Completed azithromycin. Viral panel negati ve. - cont IV ceftriaxone - F/U sputum culture - Droplet precaution until PNA resolve # Sepsis(POA) # Septic Shock Stable. Most likely due to the pneumonia but there is a possibility that it could be from t he cellulitis as well. - Follow-up on blood cultures - abx as above - stopped IVF due to fluid overload - levophed prn for BP and MAP goals. Off levophed on 06/30 # Acute kidney injury superimposed on CKD IV Improving. Dialysis cath placed in left femoral on 06/28. Dialysis started on 06/28. He like ly has diabetic nephropathy and suspect that he is stage III or IV at baseline. Making some urine but have decrease since HD. Urine is very dark. Spoke to nephrology. - dialysis cath in left femoral vein - monitor his input and output strictly as well as his daily weights - dialysis per nephro - consulted nephrology, Dr. Silvina Alcantar for further recommendations regarding his renal failure # Acute metabolic encephalopathy # Anisorcoria Resolving. Clearer today. Following command and answering questions appropriately today. Mu ltifactorial from hypercapnia, sepsis, and uremia. Paged by nurse on 06/28 who noted that his right pupil was larger than the left. No other neurological symptoms. 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 Patient does have a hx of cataract Hx. Considering medicatio ns vs metabolites toxicity. - treat underlying problems as above # Cellulitis left knee versus prepatellar bursitis: Resolving. Pain is resolving. Questionable cellulitis because of the presentation. Likely p repatellar bursitis because there is only pain with palpation and movement. He was given a d ose of vancomycin. - cont abx as above - hold off aspiration at this time because it is resolving with abx. # Chronic systolic heart failure with acute exacerbation Improving. Acute exacerbation from fluid overload. His EF is 35% at baseline - hold his diuretic therapy for now until his renal function recovers somewhat - Continue to monitor his input and output and daily weight - dialysis as above # Uncontrolled type II diabetes mellitus His A1c is elevated at 7.7 so it is not at goal. Because he is hypoglycemic today and has markedly reduced renal function, continue to hold oral hypoglycemic medications for the time being. - cont low-dose of SSI - POCT - diet # Elevated TRANSAMINASES: Improving. His LFTs from 06/19 were within the normal range but on admission the AST is mar kedly elevated. US of abdomen with sludge in the gallbladder but no other findings suggestiv e of acute cholecystitis. Mild hepatomegaly and borderline splenomegaly. He may have some un derlying liver disease. - cont to monitor LFTs # Thrombocytopenia Stable. This could be medication induced as a result of his intercurrent infection. He may also have nonalcoholic steatohepatitis causing chronic liver disease. - trend his platelet count # Acute hyponatremia Improving. This maybe due to water retention and/or SIADH - Continue to monitor - fluid restriction # Morbid obesity with a BMI greater than 35 He would benefit from outpatient follow-up with a animal nutrition teacher # Moderate protein calorie malnutrition: The patient is at risk for this because he has mandi dly eaten in the past 2 weeks. - consulted nutrition services to give us recommendations regarding improving his nutrition al status Code: Partial DVT ppx: SCDs Dispo: tbd. Likely will need SNF. Palliative care consulted to discuss goal of care, POLST, and advance directive. Patient is critically ill and critical care time now exceeds 35 minutes. Allergies: Allergies Allergen Reactions Morphine Other (See Comments) Changes personality to "mean" "get mean" Current Medications: Current Facility-Administered Medications Medication Dose Route Frequency Provider Last Rate Last Dose albumin 25% IVPB 12.5 g 12.5 g Intravenous PRN Silvina Alcantar MD albuterol-ipratropium 2.5-0.5 mg/3 mL nebulizer solution 3 mL 3 mL Nebulization RT Q6H Mabel Jaimes MD 3 mL at 06/30/182013 aspirin EC tablet 81 mg 81 mg Oral Daily Mabel Jaimes MD 81 mg at 06/30/18 08 32 atorvaSTATin (LIPITOR) tablet 40 mg 40 mg Oral Nightly Mabel Jaimes MD 40 mg at 06/30/182050 cefTRIAXone (ROCEPHIN) 2 g in sodium chloride 0.9% 50 mL IVPB 2 g Intravenous Daily Darin Jaimes MD 100 mL/hr at 06/30/18 0832 2 g at 06/30/18 08 dextrose 50% injection 12.5 g 12.5 g Intravenous PRN Mabel Jaimes MD docusate sodium (COLACE) capsule 100 mg 100 mg Oral BID Mabel Jaimes MD 100 m g at 06/30/182050 doxycycline (VIBRAMYCIN) 100 mg in sodium chloride 0.9% 100 mL IVPB 100 mg Intravenous 2 times per day Chava Werner DO 100 mL/hr at 06/30/182114 100 mg at 06/30/182114 famotidine (PEPCID) injection 20 mg 20 mg Intravenous BID Mabel Jaimes MD 20 mg at 06/30/182051 heparin 1,000 units/mL injection 1,500-6,000 Units 1,500-6,000 Units Intracatheter PRN Silvina Alcantar MD 2,800 Units at 06/30/18 1940 heparin 1,000 units/mL injection 500 Units 500 Units Intravenous With each dialysis Je tino Alcantar MD 500 Units at 06/30/18 1258 heparin in half-normal saline 50 units/mL infusion 200 Units/hr Intravenous Continuous PRN Silvina Alcantar MD insulin lispro (humaLOG KWIKPEN) injection (pen) 0-6 Units 0-6 Units Subcutaneous 4x D aily and HS Mabel Jaimes MD Stopped at 06/30/182115 norepinephrine in saline (LEVOPHED) 16 mcg/mL infusion 1-30 mcg/min Intravenous Titrat ed Mabel Jaimes MD Stopped at 06/29/182303 polyethylene glycol (MIRALAX) powder 17 g 17 g Oral Daily PRN Mabel Jaimes MD sevelamer carbonate (RENVELA) tablet 1,600 mg 1,600 mg Oral TID Rolan Alba 1,600 mg at 06/30/18 0832 sodium chloride 0.9% flush 100 mL 100 mL Intracatheter Q30 Min PRN Rolan Alba 100 mL at 06/30/18 1310 traZODone (DESYREL) tablet 50 mg 50 mg Oral Nightly Mabel Jaimes MD 50 mg at 06/30/182050 Current Infusions: Heparin Infusion norepinephrine Stopped (06/29/182303) Objective Data Point of care glucose Recent Labs Lab 07/01/18 0616 06/30/18204906/30/18 1656 06/30/18 1338 06/30/18 0831 06/30/18 0710 POCGLU 104 136* 110* 139* 134* 143* Labs last 24 hours Recent Results (from the past 24 hour(s)) POC Glucose Collection Time: 06/30/18 8:31 Result Value Ref Range Glucose, POC 134 (H) 70 - 109 mg/dL POC Glucose Collection Time: 06/30/18 13:38 Result Value Ref Range Glucose, POC 139 (H) 70 - 109 mg/dL POC Glucose Collection Time: 06/30/18 16:56 Result Value Ref Range Glucose, POC 110 (H) 70 - 109 mg/dL Blood Gas, Arterial Collection Time: 06/30/18 17:56 Result Value Ref Range pH, Arterial 7.36 7.35 - 7.45 pCO2, Arterial 42 35 - 45 mm Hg pO2, Arterial 118 >=60 mm Hg HCO3, Arterial 23.2 (H) 18.0 - 23.0 mmol/L Base Excess, Arterial -1.5 -2.0 - 2.0 mmol/L O2 Saturation, Arterial 98 95 - 98 % Hemoglobin, Arterial 12.6 (L) 13.5 - 18 g/dL Oxygenhemoglobin, Arterial 95.0 90.0 - 100.0 % Methemoglobin, Arterial 1.3 0.0 - 1.5 % COHB ART 2.1 (H) 0.0 - 1.5 % FiO2 60.0 % PH TEMP CORRECTED 7.36 PCO2 TEMP CORRECTED 42 mmHg PO2 TEMP CORRECTED 118 mmHg PATIENT TEMP 37.0 Ammonia Collection Time: 06/30/18 18:14 Result Value Ref Range Ammonia 30 11 - 35 umol/L POC Glucose Collection Time: 06/30/18 20:50 Result Value Ref Range Glucose, POC 136 (H) 70 - 109 mg/dL Renal Function Panel Collection Time: 07/01/18 3:32 Result Value Ref Range Na 134 (L) 136 - 149 mmol/L K 3.8 3.5 - 5.1 mmol/L Cl 101 98 - 109 mmol/L CO2 25 24 - 31 mmol/L Anion Gap 8 3 - 16 mmol/L Glucose 121 (H) 70 - 109 mg/dL BUN 62 (H) 7 - 18 mg/dL Creatinine 2.75 (H) 0.60 - 1.30 mg/dL eGFR if not 23 (L) >=60 mL/min/1.73m2 Ca 8.7 8.3 - 10.5 mg/dL Albumin 2.4 (L) 3.2 - 5.0 g/dL Phosphorus 3.9 2.5 - 4.6 mg/dL BUN/Creatinine Ratio 22.5 CBC with Differential Collection Time: 07/01/18 3:32 Result Value Ref Range WBC 7.6 4.0 - 11.0 K/uL RBC 3.63 (L) 4.30 - 5.70 M/uL Hgb 11.3 (L) 13.5 - 18.0 g/dL Hct 35.6 (L) 40.0 - 51.0 % MCV 98.1 83.0 - 101.0 fL MCH 31.1 28.0 - 35.0 pg MCHC 31.7 (L) 32.0 - 36.0 g/dL RDW-CV 16.0 (H) <15.0 % RDW-SD 58.4 (H) 35.1 - 46.3 fL Platelet Count 111 (L) 140 - 440 K/uL MPV 12.5 (H) 6.5 - 12.4 fL % Neutrophils 82.0 45.0 - 82.0 % % Lymphocytes 7.1 (L) 20.0 - 45.0 % % Monocytes 9.2 4.0 - 12.0 % % Eosinophils 0.5 0.0 - 5.0 % % Basophils 0.4 0.0 - 1.0 % % Immature granulocytes 0.8 (H) 0.0 - 0.4 % Absolute Neutrophils 6.23 1.80 - 8.50 K/uL Absolute Lymphocytes 0.54 (L) 0.60 - 3.20 K/uL Absolute Monocytes 0.70 0.00 - 1.00 K/uL Absolute Eosinophils 0.04 0.00 - 0.40 K/uL Absolute Basophils 0.03 0.00 - 0.10 K/uL Absolute Imm. Granulocytes 0.06 (H) 0.00 - 0.03 K/uL nRBC 0 0 - 2 per 100 WBC's NRBC ABS 0.00 0.00 - 0.01 K/uL POC Glucose Collection Time: 07/01/18 6:16 Result Value Ref Range Glucose, POC 104 70 - 109 mg/dL Micro results Microbiology Results (72 hrs) No results found for the last 72 hours. Radiology results No results found. Vitals Ranges: Temp: [36.5 C (97.7 F)-38.1 C (100.6 F)] 37.1 C (98.8 F) Pulse: [69-77] 70 Resp: [16-29] 22 BP: (86-120)/(38-94) 117/61 Vitals: Temp: 37.1 C (98.8 F) BP: 117/61 Pulse: 70 Resp: 22 SpO2: 98 % SpO2 98 % on non-invasive ventilation (i.e. bi-level) at flow rate 30L/min Subjective CC No pain. ROS See above Exam GA: NAD, AAOX2 self and place (need help with place) HEENT: EOMI, MMM, PERRL Neck: no JVD, no LDN Cardiac: rrr, no m/g/r, +1LE swelling Lung: coarse lung sounds in the upper lung aldridge, decreased lung sound at base, normal res piratory effort. On BIPAP Abdomen: obese, soft, nt/nd, nabs Skin: Large hyperpigmented patch on the left knee with satellites hyperpigmented macules an d patches on the medial and lateral thigh. Mild warmth. No tenderness only over the patella. Mild effusion. ROM full without pain. Pych: normal mood and affect Neuro: answering questions appropriately. Following all commands. concrete smoother grossly intact, no f ocal weakness or sensory deficits Chava Werner DO 07/01/2018 7:29 [facility] Portions of this chart may have been created with [employer]ope voice recognition software. Occasi onal wrong-word or sound-alike substitutions may have occurred due to the inherent al itations of voice recognition software. Please read the chart carefully and recognize, using context, where these substitutions have occurred Silvina South MD - 06/30/2018 11:54 AM PST [facility] NEPHROLOGY progress note Patient: David Kerr Jr. : 1945 Hospital Day # 4 ASSESMENT AND PLAN 1. LORIE due to ATN, in setting of hypovolemia and septic shock. Non-oliguric. Initiated HD on 06/28/18 due to uremia. Left femoral vein HD catheter placed on 06/28/18. Reviewed outside labs from primary care's office. Pt had CKD stage 4 with serum creatinine around 2.4 mg/dL in Apr - May 2018; and started to have worsening of kidney function mid-2017, with serum creatinine increasing to 2.9 mg/dL (eGFR 21 mL/min), then to 3.2 mg/dL ( eGFR 19 mL/min), likely related to relative ischemia / cardiorenal syndrome. Given pt's advanced CKD, it is unclear if pt will have recovery of kidney function from thi s episode of LORIE. Informed family that we will continue to provide dialysis support and mon itor for renal recovery. -3rd HD treatment today, t=5 hrs, 2K, BFR 350, DFR 8 L/hr, UF 1-1.5 L. 2. Acute respiratory distress, likely due to pneumonia and CHF. CXR with RLL PNA, cardiomegaly, and pulmonary edema. On abx for PNA. -Will UF 1 -1.5 Liter with HD today. 3. Septic shock, likely due to pneumonia, possible LLE cellulitis. Hemodynamically improved -- off norepi. On ceftriaxone for CAP. On doxycycline for LLE rash. 4. Hyperphosphatemia. Improved. On Renvela with meals. 5. Thrombocytopenia. -Will minimize heparin. 24 HR EVENTS Off norepi 2nd HD treatment completed SUBJECTIVE Pt is restless and confused this morning. Per , pt slept well through the night. Pt d enies pain. CURRENT MEDICATIONS Scheduled Meds: albuterol-ipratropium 3 mL Nebulization RT Q6H aspirin 81 mg Oral Daily atorvaSTATin 40 mg Oral Nightly cefTRIAXone 2 g Intravenous Daily docusate sodium 100 mg Oral BID doxycycline 100 mg Intravenous 2 times per day famotidine 20 mg Intravenous BID heparin 500 Units Intravenous With each dialysis insulin lispro 0-6 Units Subcutaneous 4x Daily WC and HS sevelamer carbonate 1,600 mg Oral TID WC traZODone 50 mg Oral Nightly Continuous Infusions: Heparin Infusion norepinephrine Stopped (06/29/18 2304) PRN Meds:albumin, Hypoglycemia Management AND POCT Glucose AND dextrose, heparin, Heparin Infusion, polyethylene glycol, sodium chloride 0.9% OBJECTIVE VITAL SIGNS: Vital sign ranges for last 24hrs: Input and output for last 24hrs: Temp: [36 C (96.8 F)-37.9 C (100.2 F)] 37.9 C (100.2 F) Pulse: [70-93] 70 Resp: [14-41] 24 BP: (92-152)/(45-128) 108/56 SpO2 Av.5 % Min: 91 % Max: 100 % Flow (L/min) Av.6 Min: 0 Max: 28 06/29 0701 - 06/30 0700 In: 828 [P.O.:440; I.V.:138] Out: 1475 [Urine:90] General: Restless. Cardiac: Regular rate and rhythm, normal S1 and S2. Trace pitting lower peripheral edema. Chest: Normal respiratory effort. On high flow by nasal cannula. Rhonchi throughout, fe w wheezes. Abdomen: Soft, non-distended, non-tender, normal bowel sounds. Neuro: Awake, but unable to track conversation. LABORATORY DATA: Recent Labs Lab 06/30/18 0402 06/29/18 0321 06/28/18 0357 WBC 8.7 9.7 11.2* HGB 11.9* 12.2* 12.8* HCT 36.2* 36.5* 38.5* PLT 80* 78* 100* Recent Labs Lab 06/30/18 0402 06/29/18 0321 06/28/18 0357 NA 131* 128* 127* K 4.7 3.9 4.1 CL 98 93* 89* CO2 24 24 21* BUN 88* 118* 161* CREA 3.22* 4.23* 5.56* CALCIUM 8.6 8.4 8.0* PHOS 4.7* 6.4* 9.2* ALBUMIN 2.4* 2.6* 2.8* GLU 157* 115* 151* Recent Labs Lab 06/27/18 0230 06/26/18 0724 MG 1.8 1.8 Diagnostic Studies: Available data and images were reviewed personally. Significant results and findings are ad dressed here or in the Assessment and Plan. Silvina Alcantar MD Electronically signed: 06/30/2018 11:54 [facility] Chava Morales DO - 06/30/2018 7:11 AM PST [facility]GR[facility] Patient: David Kerr Jr. : 1945: Age: 72 y.o. MedRec: [id number] Admission date: 06/26/2018 Hospital day # : 4 Physician author: Chava Werner DO Today: 06/30/2018 Assessment and Hospital Course Active Hospital Problems Diagnosis Severe sepsis with septic shock Pneumonia due to infectious organism Cellulitis of left lower extremity Acute kidney injury superimposed on chronic kidney disease Type 2 diabetes mellitus with stage 4 chronic kidney disease, without long-term current use of insulin Acute metabolic encephalopathy Acute on chronic systolic heart failure Obesity, morbid Resolved Hospital Problems Diagnosis No resolved problems to display. HPI from H&P: Mr Kerr is a 72 y.o. male with a past medical history significant for ische keshawn cardiomyopathy, type II diabetes mellitus, essential hypertension, BPH, F/P AICD, conges tive heart failure who presented to the ED today with progressive weakness, anorexia, produc tive cough, and SOB. History was taken from both the patient and his both are very poo r historians and really did not give a very clear history. About 3 weeks ago he apparently went to see his primary care provider at the [facility] and complained of generalize d swelling and abdominal distention. He was diagnosed with decompensated heart failure and f luid overload and metolazone was added to his diuretic regimen. He was asked to take this 3 times a week. When he went back for a follow-up visit on 19 June he had lost 42 miriam nds in fluid. He said he was feeling better at that time. Then about a week or two ago he started feeling progressively weaker and developed a cough productive of yellowish sputum. He's also been feeling more short of breath than usual. His appetite is completely gone and he has barely been eating or drinking much in the past week. His decided to bring him to the ER today because he was feeling so weak he could barely stand and she was worried ab out his health. Further evaluation here revealed a probable right lower lobe pneumonia and acute kidney injury superimposed on chronic kidney disease stage IV. His creatinine 2 weeks ago was 3.2 with a BUN of 129. I don't have any labs before then so I'm not sure whether t his is actually his baseline or not. In any event today's creatinine is 7.03 which is much worse. In ER, U/S duplex of left leg was negative for DVT. CXR showed a consolidation of RLL. Serum creatinine was elevated to 7.03 mg/dL, BUN 166 mg/dL. Serum potassium is 3.7 meq/L. Plan # Pneumonia due to infectious organism # Acute respiratory failure with hypoxia and hypercapnia # EVITA Breathing is difficult this morning because he is flat and crunched up in the bed. He is on HFNC now. BIPAP at night and tolerating it now. Admitted for CAP. No diuresis at this time because of hypotension. Making some urine. Mycoplasma IgG is high and Igm is high normal. L egionella and strep pneu are negative. Completed azithromycin. Viral panel negative. - cont IV ceftriaxone - F/U sputum culture - Droplet precaution until PNA resolve # Sepsis(POA) # Septic Shock Stable. Most likely due to the pneumonia but there is a possibility that it could be from t he cellulitis as well. - Follow-up on blood cultures - abx as above - stopped IVF due to fluid overload - levophed prn for BP and MAP goals. Off levophed on 06/30 # Acute kidney injury superimposed on CKD IV Improving. Dialysis cath placed in left femoral on 06/28. Dialysis started on 06/28. He like ly has diabetic nephropathy and suspect that he is stage III or IV at baseline. Making some urine. Spoke to nephrology today. Will start preparation for dialysis because he continue to have fluid overload and electrolytes abnormalities. Spoke to the patient and the . expressed her understanding but patient appear to be confuse. US without hydronephrosis or calcification. - monitor his input and output strictly as well as his daily weights - dialysis per nephro - consulted nephrology, Dr. Silvina Alcantar for further recommendations regarding his renal failure # Acute metabolic encephalopathy # Anisorcoria Resolving. Multifactorial from hypercapnia, sepsis, and uremia. Paged by nurse on 06/28 who noted that his right pupil was larger than the left. No other neurological symptoms. 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 Patient does have a hx of cataract Hx. Conside ring medications vs metabolites toxicity. - treat underlying problems as above # Cellulitis left knee versus prepatellar bursitis: Resolving. Pain is resolving. Questionable cellulitis because of the presentation. Likely p repatellar bursitis because there is only pain with palpation and movement. He was given a d ose of vancomycin. - cont abx as above - hold off aspiration at this time because it is resolving with abx. # Chronic systolic heart failure with acute exacerbation Stable. Acute exacerbation from fluid overload. His EF is 35% at baseline - hold his diuretic therapy for now until his renal function recovers somewhat - Continue to monitor his input and output and daily weight - dialysis as above # Uncontrolled type II diabetes mellitus His A1c is elevated at 7.7 so it is not at goal. Because he is hypoglycemic today and has markedly reduced renal function, continue to hold oral hypoglycemic medications for the time being. - cont low-dose of SSI - POCT - diet # Elevated TRANSAMINASES: Improving. His LFTs from 06/19 were within the normal range but on admission the AST is mar kedly elevated. US of abdomen with sludge in the gallbladder but no other findings suggestiv e of acute cholecystitis. Mild hepatomegaly and borderline splenomegaly. He may have some un derlying liver disease. - cont to monitor LFTs # Thrombocytopenia Stable. This could be medication induced as a result of his intercurrent infection. He may also have nonalcoholic steatohepatitis causing chronic liver disease. - trend his platelet count # Acute hyponatremia Improving. This maybe due to water retention and/or SIADH - Continue to monitor - fluid restriction # Morbid obesity with a BMI greater than 35 He would benefit from outpatient follow-up with a animal nutrition teacher # Moderate protein calorie malnutrition: The patient is at risk for this because he has mandi dly eaten in the past 2 weeks. - consulted nutrition services to give us recommendations regarding improving his nutrition al status Code: Full DVT ppx: SCDs Dispo: tbd. Likely will need SNF. Palliative care consulted to discuss goal of care, POLST, and advance directive. Patient is critically ill and critical care time now exceeds 35 minutes. Allergies: Allergies Allergen Reactions Morphine Other (See Comments) Changes personality to "mean" "get mean" Current Medications: Current Facility-Administered Medications Medication Dose Route Frequency Provider Last Rate Last Dose albumin 25% IVPB 12.5 g 12.5 g Intravenous PRN Silvina Alcantar MD albuterol-ipratropium 2.5-0.5 mg/3 mL nebulizer solution 3 mL 3 mL Nebulization RT Q6H Mabel Jaimes MD 3 mL at 06/30/18 0246 aspirin EC tablet 81 mg 81 mg Oral Daily Mabel Jaimes MD 81 mg at 06/29/18 09 39 atorvaSTATin (LIPITOR) tablet 40 mg 40 mg Oral Nightly Mabel Jaimes MD 40 mg at 06/29/182018 cefTRIAXone (ROCEPHIN) 2 g in sodium chloride 0.9% 50 mL IVPB 2 g Intravenous Daily Darin Jaimes MD 100 mL/hr at 06/29/18 0940 2 g at 06/29/18 0940 dextrose 50% injection 12.5 g 12.5 g Intravenous PRN Mabel Jaimes MD docusate sodium (COLACE) capsule 100 mg 100 mg Oral BID Mabel Jaimes MD 100 m g at 06/29/182018 doxycycline (VIBRAMYCIN) 100 mg in sodium chloride 0.9% 100 mL IVPB 100 mg Intravenous 2 times per day Chava Werner DO 100 mL/hr at 06/29/182018 100 mg at 06/29/182018 famotidine (PEPCID) injection 20 mg 20 mg Intravenous BID Mabel Jaimes MD 20 mg at 06/29/182018 heparin 1,000 units/mL injection 1,500-6,000 Units 1,500-6,000 Units Intracatheter PRN Silvina Alcantar MD 2,800 Units at 06/29/18 1520 heparin 1,000 units/mL injection 500 Units 500 Units Intravenous With each dialysis Je tino Alcantar MD heparin in half-normal saline 50 units/mL infusion 200 Units/hr Intravenous Continuous PRN Silvina Alcantar MD insulin lispro (humaLOG KWIKPEN) injection (pen) 0-6 Units 0-6 Units Subcutaneous 4x D aily WC and HS Mabel Jaimes MD 1 Units at 06/28/18 1132 norepinephrine in saline (LEVOPHED) 16 mcg/mL infusion 1-30 mcg/min Intravenous Titrat ed Mabel Jaimes MD Stopped at 06/29/18 2304 polyethylene glycol (MIRALAX) powder 17 g 17 g Oral Daily PRN Mabel Jaimes MD sevelamer carbonate (RENVELA) tablet 1,600 mg 1,600 mg Oral TID Rolan Alba 1,600 mg at 06/29/18 1757 sodium chloride 0.9% (NS) infusion 250 mL 250 mL Intravenous Q30 Min PRN Silvina Hale MD sodium chloride 0.9% flush 100 mL 100 mL Intracatheter Q30 Min PRN Rolan Alba 100 mL at 06/29/18 0959 sodium chloride 0.9% flush 100 mL 100 mL Intracatheter Q30 Min PRN Rolan Alba traZODone (DESYREL) tablet 50 mg 50 mg Oral Nightly Mabel Jaimes MD 50 mg at 06/29/18 2019 Current Infusions: Heparin Infusion norepinephrine Stopped (06/29/182303) Objective Data Point of care glucose Recent Labs Lab 06/29/18 2018 06/29/18 1754 06/29/18 1150 06/29/18 0641 06/28/18 2110 06/28/18 1717 POCGLU 152* 121* 91 98 147* 122* Labs last 24 hours Recent Results (from the past 24 hour(s)) POC Glucose Collection Time: 06/29/18 11:50 Result Value Ref Range Glucose, POC 91 70 - 109 mg/dL POC Glucose Collection Time: 06/29/18 17:54 Result Value Ref Range Glucose, POC 121 (H) 70 - 109 mg/dL POC Glucose Collection Time: 06/29/18 20:18 Result Value Ref Range Glucose, POC 152 (H) 70 - 109 mg/dL Renal Function Panel Collection Time: 06/30/18 4:02 Result Value Ref Range Na 131 (L) 136 - 149 mmol/L K 4.7 3.5 - 5.1 mmol/L Cl 98 98 - 109 mmol/L CO2 24 24 - 31 mmol/L Anion Gap 9 3 - 16 mmol/L Glucose 157 (H) 70 - 109 mg/dL BUN 88 (H) 7 - 18 mg/dL Creatinine 3.22 (H) 0.60 - 1.30 mg/dL eGFR if not 19 (L) >=60 mL/min/1.73m2 Ca 8.6 8.3 - 10.5 mg/dL Albumin 2.4 (L) 3.2 - 5.0 g/dL Phosphorus 4.7 (H) 2.5 - 4.6 mg/dL BUN/Creatinine Ratio 27.3 CBC no Differential Collection Time: 06/30/18 4:02 Result Value Ref Range WBC 8.7 4.0 - 11.0 K/uL RBC 3.77 (L) 4.30 - 5.70 M/uL Hgb 11.9 (L) 13.5 - 18.0 g/dL Hct 36.2 (L) 40.0 - 51.0 % MCV 96.0 83.0 - 101.0 fL MCH 31.6 28.0 - 35.0 pg MCHC 32.9 32.0 - 36.0 g/dL RDW-CV 15.8 (H) <15.0 % RDW-SD 55.5 (H) 35.1 - 46.3 fL Platelet Count 80 (L) 140 - 440 K/uL MPV 12.6 (H) 6.5 - 12.4 fL Immature Platelet Fraction 6.8 0.9 - 11.2 % nRBC 0 0 - 2 per 100 WBC's NRBC ABS 0.00 0.00 - 0.01 K/uL Micro results Microbiology Results (72 hrs) Procedure Component Value Units Date/Time Culture, Respiratory, Lower, Smear [[id number]] Collected: 06/27/18 0938 Order Status: Completed Lab Status: Final result Updated: 06/29/18 1118 Specimen: Body Fluid from Sputum, Expectorated Culture No pathogens isolated 2+ Usual Respiratory Homer Gram Stain Result 3+ White Blood Cells 2+ Epithelial cells 1+ Gram positive cocci 1+ Gram negative rods Radiology results Ct Head Wo Contrast Result Date: 06/28/2018 EXAM: CT HEAD WO CONTRAST dated 06/28/2018 2:57 PM HISTORY: anisocoria and increased confus ion Comparison: None. TECHNIQUE: Noncontrast CT is performed from the top of calvarium throu gh the skull base. Coronal and sagittal reformats are performed. DOSE: DLP 806.61 mGy-cm FI NDINGS: BRAIN: There is moderate cerebral and cerebellar atrophy. There is associated appr opriate prominence of the ventricles. No areas of increased attenuation to suggest intracra nial hemorrhage. There is no mass, mass effect, or midline shift. There are no abnormal ex tra-axial fluid or air collections. There is preservation of the caballero-white differentiation at this time. There is moderate patchy to confluent decreased density in the periventricul ar and subcortical white matter. Hypodensities in the basal ganglia likely represent lacuna r infarcts. Heavy calcified disease in the cavernous carotids and posterior circulation. SC ALP/ CALVARIUM: The scalp and skull are intact and are unremarkable. SINUSES / ORBITS/ MASTO IDS: The visible mastoid air cells and paranasal sinuses are clear. The globes and retrocon al contents are intact and are unremarkable. IMPRESSION - No CT evidence for an acute intrac ranial process. No intracranial mass or mass effect. Moderate white matter disease and evide nce of remote basal ganglia lacunar infarcts. Recommendation: Consider MRI for problem solvi ng if this would alter patient management. Dictated and Signed by: Chet Cuevas MD Elec tronically signed: 06/28/2018 3:26 PM Vitals Ranges: Temp: [36 C (96.8 F)-37.5 C (99.5 F)] 37.5 C (99.5 F) Pulse: [70-93] 70 Resp: [14-41] 20 BP: (87-152)/(31-128) 109/59 Vitals: Temp: 37.5 C (99.5 F) BP: 109/59 Pulse: 70 Resp: 20 SpO2: 94 % SpO2 94 % on non-invasive ventilation (i.e. bi-level) at flow rate 28L/min Subjective CC Difficult to breath. Uncomfortable in bed. He wants to get out of bed. No pain. ROS See above Exam GA: NAD, AAOX1 self HEENT: EOMI, MMM, PERRL Neck: no JVD, no LDN Cardiac: rrr, no m/g/r, +1LE swelling Lung: coarse lung sounds in the upper lung aldridge, normal respiratory effort. On BIPAP Abdomen: obese, soft, nt/nd, nabs Skin: Large hyperpigmented patch on the left knee with satellites hyperpigmented macules an d patches on the medial and lateral thigh. Mild warmth. No tenderness only over the patella. Mild effusion. ROM full without pain. Pych: normal mood and affect Neuro: Forgetful. Have to repeat information multiple time. concrete smoother grossly intact, no focal we akness or sensory deficits Chava Werner DO 06/30/2018 7:11 [facility] Portions of this chart may have been created with [employer]cope voice recognition software. Occasi onal wrong-word or sound-alike substitutions may have occurred due to the inherent al itations of voice recognition software. Please read the chart carefully and recognize, using context, where these substitutions have occurred Silvina South MD - 06/29/2018 9:22 AM PST [facility] NEPHROLOG[facility] progress note Patient: David Kerr Jr. : 1945 Hospital Day # 3 ASSESMENT AND PLAN 1. LORIE due to ATN, in setting of hypovolemia and septic shock. Non-oliguric. Suspect pt's baseline serum creatinine may be worse than 1.74 mg/dL, after speaking with miguel angel burnett. Requested additional labs from Dr. Drummond's office. Initiated HD on 06/28/18 due to uremia. Left femoral vein HD catheter placed. Pt tolerated 1st HD treatment. -2nd HD treatment today, t=5 hrs, 4K, BFR 350, DFR 6 L/hr, UF 1 L. -Plan for 3rd treatment tomorrow. 2. Acute respiratory distress, likely due to pneumonia and CHF. CXR with RLL PNA, cardiomegaly, and pulmonary edema. Treating CAP. On BIPAP for support. -Will UF 1 Liter with HD today. 3. Septic shock, likely due to pneumonia, possible LLE cellulitis. On norepi gtt -- requiring lower amounts. On ceftriaxone for CAP. On doxycycline for LLE rash. 4. Hyperphosphatemia. Improved. On Renvela with meals. 5. Thrombocytopenia. -Will minimize heparin. 24 HR EVENTS HD catheter placed in left femoral vein; HD x 4 hrs UOP 305 mL Remains on norepi gtt @ 3 mcg/min (coming down) SUBJECTIVE Pt is on BIPAP. Pt denies pain. CURRENT MEDICATIONS Scheduled Meds: albuterol-ipratropium 3 mL Nebulization RT Q6H aspirin 81 mg Oral Daily atorvaSTATin 40 mg Oral Nightly cefTRIAXone 2 g Intravenous Daily docusate sodium 100 mg Oral BID doxycycline 100 mg Intravenous 2 times per day famotidine 20 mg Intravenous BID heparin 500 Units Intravenous With each dialysis insulin lispro 0-6 Units Subcutaneous 4x Daily WC and HS sevelamer carbonate 1,600 mg Oral TID WC traZODone 50 mg Oral Nightly Continuous Infusions: Heparin Infusion norepinephrine 3 mcg/min (06/29/18 0151) PRN Meds:albumin, Hypoglycemia Management AND POCT Glucose AND dextrose, heparin, Heparin Infusion, polyethylene glycol, sodium chloride 0.9%, sodium chloride 0.9% OBJECTIVE VITAL SIGNS: Vital sign ranges for last 24hrs: Input and output for last 24hrs: Temp: [36.2 C (97.2 F)-37.4 C (99.3 F)] 36.4 C (97.5 F) Pulse: [67-81] 70 Resp: [15-30] 23 BP: (80-138)/(38-113) 101/57 SpO2 Av.4 % Min: 86 % Max: 100 % Flow (L/min) Av.7 Min: 30 Max: 40 12 0701 - 06/29 0700 In: 1127.5 [P.O.:170; I.V.:907.5] Out: 305 [Urine:305] General: In no acute distress Cardiac: Regular rate and rhythm, normal S1 and S2. Trace pitting lower peripheral edema. Chest: Normal respiratory effort. On BIPAP. Clear anteriorly and laterally. Abdomen: Soft, non-distended, non-tender, normal bowel sounds. Skin: Erythematous rash over left knee and lateral / medial left thigh is appear lessened . Neuro: Unable to assess. Psych: Calm. LABORATORY DATA: Recent Labs Lab 06/29/18 0321 06/28/18 0357 06/27/18 0230 WBC 9.7 11.2* 8.6 HGB 12.2* 12.8* 12.5* HCT 36.5* 38.5* 37.0* PLT 78* 100* 84* Recent Labs Lab 06/29/18 0321 06/28/18 0357 06/27/18 1634 06/27/18 0230 NA 128* 127* 127* 125* K 3.9 4.1 3.9 3.6 CL 93* 89* 87* 86* CO2 24 21* 24 24 BUN 118* 161* 157* 159* CREA 4.23* 5.56* 5.32* 6.05* CALCIUM 8.4 8.0* 8.0* 7.7* PHOS 6.4* 9.2* -- 8.9* ALBUMIN 2.6* 2.8* -- 2.9* GLU 115* 151* 136* 98 Recent Labs Lab 06/27/18 0230 06/26/18 0724 MG 1.8 1.8 Diagnostic Studies: Available data and images were reviewed personally. Significant results and findings are ad dressed here or in the Assessment and Plan. Silvina Alcantar MD Electronically signed: 06/29/2018 9:22 [facility] Chava Morales DO - 06/29/2018 7:15 AM PST [facility] PROGRESS NOTE Patient: David Kerr Jr. : 1945: Age: 72 y.o. MedRec: [id number] Admission date: 06/26/2018 Hospital day # : 3 Physician author: Chava Werner DO Today: 06/29/2018 Assessment and Hospital Course Active Hospital Problems Diagnosis Severe sepsis with septic shock Pneumonia due to infectious organism Cellulitis of left lower extremity Acute kidney injury superimposed on chronic kidney disease Type 2 diabetes mellitus with stage 4 chronic kidney disease, without long-term current use of insulin Acute metabolic encephalopathy Acute on chronic systolic heart failure Obesity, morbid Resolved Hospital Problems Diagnosis No resolved problems to display. HPI from H&P: Mr Kerr is a 72 y.o. male with a past medical history significant for ische keshawn cardiomyopathy, type II diabetes mellitus, essential hypertension, BPH, F/P AICD, conges tive heart failure who presented to the ED today with progressive weakness, anorexia, produc tive cough, and SOB. History was taken from both the patient and his both are very poo r historians and really did not give a very clear history. About 3 weeks ago he apparently went to see his primary care provider at the [facility] and complained of generalize d swelling and abdominal distention. He was diagnosed with decompensated heart failure and f luid overload and metolazone was added to his diuretic regimen. He was asked to take this 3 times a week. When he went back for a follow-up visit on 19 June he had lost 42 miriam nds in fluid. He said he was feeling better at that time. Then about a week or two ago he started feeling progressively weaker and developed a cough productive of yellowish sputum. He's also been feeling more short of breath than usual. His appetite is completely gone and he has barely been eating or drinking much in the past week. His decided to bring him to the ER today because he was feeling so weak he could barely stand and she was worried ab out his health. Further evaluation here revealed a probable right lower lobe pneumonia and acute kidney injury superimposed on chronic kidney disease stage IV. His creatinine 2 weeks ago was 3.2 with a BUN of 129. I don't have any labs before then so I'm not sure whether t his is actually his baseline or not. In any event today's creatinine is 7.03 which is much worse. In ER, U/S duplex of left leg was negative for DVT. CXR showed a consolidation of RLL. Serum creatinine was elevated to 7.03 mg/dL, BUN 166 mg/dL. Serum potassium is 3.7 meq/L. Plan # Pneumonia due to infectious organism Breathing is better. On BIPAP and tolerating it now. Admitted for CAP. No diuresis at this time because of hypotension. Making some urine. Mycoplasma IgG is high and Igm is high norm al. Legionella and strep pneu are negative. Completed azithromycin - cont IV ceftriaxone - follow up on respiratory viral and pathogen panels - F/U sputum culture - Droplet precaution until PNA resolve # Sepsis(POA) # Septic Shock Stable. Most likely due to the pneumonia but there is a possibility that it could be from t he cellulitis as well. - Follow-up on blood cultures - abx as above - stopped IVF due to fluid overload - levophed prn for BP and MAP goals # Acute respiratory failure with hypoxia and hypercapnia Breathing is better on BiPAP. On BiPAP now. Likely multifactorial from fluid overload, CAP, and untreated EVITA. Suspecting chronic hypercapnia from untreated EVITA. - Treatment of underlying etiologies # Acute kidney injury superimposed on CKD IV Improving. Dialysis cath placed in left femoral on 06/28. Dialysis started on 06/28. He like ly has diabetic nephropathy and suspect that he is stage III or IV at baseline. Making some urine. Spoke to nephrology today. Will start preparation for dialysis because he continue to have fluid overload and electrolytes abnormalities. Spoke to the patient and the . expressed her understanding but patient appear to be confuse. US without hydronephrosis or calcification. - monitor his input and output strictly as well as his daily weights - dialysis per nephro - consulted nephrology, Dr. Silvina Alcantar for further recommendations regarding his renal failure # Acute metabolic encephalopathy # Anisorcoria Improved per nursing report. Multifactorial from hypercapnia, sepsis, and uremia. Paged by nurse on 06/28 who noted that his right pupil was larger than the left. No other neurological symptoms. 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 Patient does have a hx of ca taract Hx. Considering medications vs metabolites toxicity. Addendum: Seen patient later in the day. Pupils are equal and reactive to light bilaterall y. Less confused. - treat underlying etiology as above. # Cellulitis left knee versus prepatellar bursitis: Improving. Pain is resolving. Questionable cellulitis because of the presentation. Likely p repatellar bursitis because there is only pain with palpation and movement. He was given a d ose of vancomycin. - cont abx as above - hold off aspiration at this time because unclear if there is a cellulitis component which may induce pathogen into the bursa if the procedure was done. # Chronic systolic heart failure with acute exacerbation Acute exacerbation from fluid overload. His EF is 35% at baseline - hold his diuretic therapy for now until his renal function recovers somewhat - Continue to monitor his input and output and daily weight - dialysis as above # Uncontrolled type II diabetes mellitus His A1c is elevated at 7.7 so it is not at goal. Because he is hypoglycemic today and has markedly reduced renal function, continue to hold oral hypoglycemic medications for the time being. - cont low-dose of SSI - POCT - diet # Elevated TRANSAMINASES: Improving. His LFTs from 06/19 were within the normal range but on admission the AST is mar kedly elevated. US of abdomen with sludge in the gallbladder but no other findings suggestiv e of acute cholecystitis. Mild hepatomegaly and borderline splenomegaly. He may have some un derlying liver disease. - cont to monitor LFTs # Thrombocytopenia Stable. This could be medication induced as a result of his intercurrent infection. He may also have nonalcoholic steatohepatitis causing chronic liver disease. - trend his platelet count # Acute hyponatremia Stable. His sodium was 134 on 06/19 and today it's 127. This maybe due to water retention a nd/or SIADH - Continue to monitor - fluid restriction # Morbid obesity with a BMI greater than 35 He would benefit from outpatient follow-up with a animal nutrition teacher # Moderate protein calorie malnutrition: The patient is at risk for this because he has mandi dly eaten in the past 2 weeks. - consulted nutrition services to give us recommendations regarding improving his nutrition al status Code: Full DVT ppx: SCDs Patient is critically ill and critical care time now exceeds 35 minutes. Allergies: Allergies Allergen Reactions Morphine Other (See Comments) Changes personality to "mean" "get mean" Current Medications: Current Facility-Administered Medications Medication Dose Route Frequency Provider Last Rate Last Dose albumin 25% IVPB 12.5 g 12.5 g Intravenous PRN Silvina Alcantar MD albuterol-ipratropium 2.5-0.5 mg/3 mL nebulizer solution 3 mL 3 mL Nebulization RT Q6H Mabel Jaimes MD 3 mL at 06/29/18 0252 aspirin EC tablet 81 mg 81 mg Oral Daily Mabel Jaimes MD 81 mg at 06/28/18 08 30 atorvaSTATin (LIPITOR) tablet 40 mg 40 mg Oral Nightly Mabel Jaimes MD 40 mg at 06/28/18 204 cefTRIAXone (ROCEPHIN) 2 g in sodium chloride 0.9% 50 mL IVPB 2 g Intravenous Daily Darin Jaimes MD 100 mL/hr at 06/28/18 0830 2 g at 06/28/18 0830 dextrose 50% injection 12.5 g 12.5 g Intravenous PRN Mabel Jaimes MD docusate sodium (COLACE) capsule 100 mg 100 mg Oral BID Mabel Jaimes MD 100 m g at 06/28/182042 doxycycline (VIBRAMYCIN) 100 mg in sodium chloride 0.9% 100 mL IVPB 100 mg Intravenous 2 times per day Chava WernerDO 100 mL/hr at 06/28/182102 100 mg at 06/28/182102 famotidine (PEPCID) injection 20 mg 20 mg Intravenous BID Mabel Jaimes MD 20 mg at 06/28/182036 heparin 1,000 units/mL injection 1,500-6,000 Units 1,500-6,000 Units Intracatheter PRN Silvina Alcantar MD 2,800 Units at 06/28/181950 heparin 1,000 units/mL injection 500 Units 500 Units Intravenous With each dialysis Je tino Alcantar MD 500 Units at 06/28/18 1508 heparin in half-normal saline 50 units/mL infusion 200 Units/hr Intravenous Continuous Silvina Alcantar MD 4 mL/hr at 06/28/18 1508 200 Units/hr at 06/28/18 1508 insulin lispro (humaLOG KWIKPEN) injection (pen) 0-6 Units 0-6 Units Subcutaneous 4x D aily and HS Mabel Jaimes MD 1 Units at 06/28/18 1132 norepinephrine in saline (LEVOPHED) 16 mcg/mL infusion 1-30 mcg/min Intravenous Titrat ed Mabel Jaimes MD 11.3 mL/hr at 06/29/18 0151 3 mcg/min at 06/29/18 0151 polyethylene glycol (MIRALAX) powder 17 g 17 g Oral Daily PRN Mabel Jaimes MD sevelamer carbonate (RENVELA) tablet 1,600 mg 1,600 mg Oral TID Rolan Alba 1,600 mg at 06/28/18 1711 sodium chloride 0.9% (NS) infusion 250 mL 250 mL Intravenous Q30 Min PRN Silvina Hale MD traZODone (DESYREL) tablet 50 mg 50 mg Oral Nightly Mabel Jaimes MD Stopped a t 06/28/182054 Current Infusions: Heparin Infusion 200 Units/hr (06/28/18 1508) norepinephrine 3 mcg/min (06/29/18 7831) Objective Data Point of care glucose Recent Labs Lab 06/29/18 0641 06/28/18 2110 06/28/18 1717 06/28/18 1126 06/28/18 0658 06/27/185 POCGLU 98 147* 122* 174* 137* 149* Labs last 24 hours Recent Results (from the past 24 hour(s)) POC Glucose Collection Time: 06/28/18 11:26 Result Value Ref Range Glucose, POC 174 (H) 70 - 109 mg/dL POC Glucose Collection Time: 06/28/18 17:17 Result Value Ref Range Glucose, POC 122 (H) 70 - 109 mg/dL POC Glucose Collection Time: 06/28/18 21:10 Result Value Ref Range Glucose, POC 147 (H) 70 - 109 mg/dL Renal Function Panel Collection Time: 06/29/18 3:21 Result Value Ref Range Na 128 (L) 136 - 149 mmol/L K 3.9 3.5 - 5.1 mmol/L Cl 93 (L) 98 - 109 mmol/L CO2 24 24 - 31 mmol/L Anion Gap 11 3 - 16 mmol/L Glucose 115 (H) 70 - 109 mg/dL BUN 118 (HH) 7 - 18 mg/dL Creatinine 4.23 (H) 0.60 - 1.30 mg/dL eGFR if not 14 (L) >=60 mL/min/1.73m2 Ca 8.4 8.3 - 10.5 mg/dL Albumin 2.6 (L) 3.2 - 5.0 g/dL Phosphorus 6.4 (H) 2.5 - 4.6 mg/dL BUN/Creatinine Ratio 27.9 CBC no Differential Collection Time: 06/29/18 3:21 Result Value Ref Range WBC 9.7 4.0 - 11.0 K/uL RBC 3.77 (L) 4.30 - 5.70 M/uL Hgb 12.2 (L) 13.5 - 18.0 g/dL Hct 36.5 (L) 40.0 - 51.0 % MCV 96.8 83.0 - 101.0 fL MCH 32.4 28.0 - 35.0 pg MCHC 33.4 32.0 - 36.0 g/dL RDW-CV 15.9 (H) <15.0 % RDW-SD 56.4 (H) 35.1 - 46.3 fL Platelet Count 78 (L) 140 - 440 K/uL MPV 12.3 6.5 - 12.4 fL nRBC 0 0 - 2 per 100 WBC's NRBC ABS 0.00 0.00 - 0.01 K/uL POC Glucose Collection Time: 06/29/18 6:41 Result Value Ref Range Glucose, POC 98 70 - 109 mg/dL Micro results Microbiology Results (72 hrs) Procedure Component Value Units Date/Time Culture, Respiratory, Lower, Smear [[id number]] Collected: 06/27/18 0938 Order Status: Completed Lab Status: Preliminary result Updated: 06/28/18827 Specimen: Body Fluid from Sputum, Expectorated Culture 1+ Usual Respiratory Homer Gram Stain Result 3+ White Blood Cells 2+ Epithelial cells 1+ Gram positive cocci 1+ Gram negative rods Respiratory Virus Panel, NAAT [[id number]] Collected: 06/26/182358 Order Status: Sent Lab Status: In process Updated: 06/27/18 0002 Specimen: Tissue from Nasopharynx Respiratory pathogen panel, NAAT [[id number]] Collected: 06/26/182358 Order Status: Completed Lab Status: Final result Updated: 06/28/18 0507 Specimen: Tissue from Nasopharynx ADENOVIRUS Not Detected Coronavirus HKU1 Not Detected Coronavirus NL63 Not Detected Coronavirus 229E Not Detected Coronavirus OC43 Not Detected Human Metapneumovirus Not Detected Rhinovirus/Enterovirus Not Detected INFLUENZA A Not Detected Influenza Virus A H1 RNA Not Detected Influenza A 2008 H1 Not Detected Influenza Virus A H3 RNA Not Detected Influenza B Not Detected Parainfluenza 1 Not Detected Parainfluenza 2 Not Detected Parainfluenza 3 Not Detected Parainfluenza 4 Not Detected RSV Not Detected Bordetella pertussis DNA Not Detected Chlamydophila pneumoniae DNA Not Detected Mycoplasma pneumoniae DNA Not Detected Narrative: Performed at: [address] [place] [id number] [employer] Supervisor: Salazar Ocampo MD, Phone: [phone] Legionella, Ag, EIA, Qual, Urine [[id number]] Collected: 06/26/18 1501 Order Status: Completed Lab Status: Final result Updated: 06/27/18 1311 Specimen: Urine from Urine, Indwelling Catheter L. pneumophila Serogp 1 Ur Ag Negative Comment: Presumptive negative for L. pneumophila serogroup 1 antigen in urine, suggesting no recent or current infection. Legionnaires' disease cannot be ruled out since other serogroups and species may also cause disease. Narrative: Performed at: [facility] [id number] [employer] Supervisor: Salazar Ocampo MD, Phone: [phone] Culture, Urine [[id number]] Collected: 06/26/18 1500 Order Status: Completed Lab Status: Final result Updated: 06/28/18 0916 Specimen: Urine from Urine, Clean Catch Culture 6,000 CFU/ml Mixed Gram Positive Homer Comment: Suggests contamination with urogenital or skin homer. No further work-up to follow. Culture, MRSA [[id number]] Collected: 06/26/18 1312 Order Status: Completed Lab Status: Final result Updated: 06/27/18 0724 Specimen: Tissue from Nares Culture Negative for MRSA by chromogenic agar method 3+ Coagulase positive Staphylococcus Culture, Blood [[id number]] (Normal) Collected: 06/26/18 1022 Order Status: Completed Lab Status: Preliminary result Updated: 06/26/18 2231 Specimen: Blood from Peripheral Blood Culture No growth: Monitored continually by instrument for 5 days Culture, Blood [[id number]] (Normal) Collected: 06/26/18 0924 Order Status: Completed Lab Status: Preliminary result Updated: 06/26/18 2141 Specimen: Blood from Line Culture No growth: Monitored continually by instrument for [address] Head Wo Contrast Result Date: 06/28/2018 EXAM: CT HEAD WO CONTRAST dated 06/28/2018 2:57 PM HISTORY: anisocoria and increased confus ion Comparison: None. TECHNIQUE: Noncontrast CT is performed from the top of calvarium throu gh the skull base. Coronal and sagittal reformats are performed. DOSE: DLP 806.61 mGy-cm FI NDINGS: BRAIN: There is moderate cerebral and cerebellar atrophy. There is associated appr opriate prominence of the ventricles. No areas of increased attenuation to suggest intracra nial hemorrhage. There is no mass, mass effect, or midline shift. There are no abnormal ex tra-axial fluid or air collections. There is preservation of the caballero-white differentiation at this time. There is moderate patchy to confluent decreased density in the periventricul ar and subcortical white matter. Hypodensities in the basal ganglia likely represent lacuna r infarcts. Heavy calcified disease in the cavernous carotids and posterior circulation. SC ALP/ CALVARIUM: The scalp and skull are intact and are unremarkable. SINUSES / ORBITS/ MASTO IDS: The visible mastoid air cells and paranasal sinuses are clear. The globes and retrocon al contents are intact and are unremarkable. IMPRESSION - No CT evidence for an acute intrac ranial process. No intracranial mass or mass effect. Moderate white matter disease and evide nce of remote basal ganglia lacunar infarcts. Recommendation: Consider MRI for problem philip forbes if this would alter patient management. Dictated and Signed by: Chet Cuevas MD Elec tronically signed: 06/28/2018 3:26 PM Vitals Ranges: Temp: [36.2 C (97.2 F)-37.4 C (99.3 F)] 36.4 C (97.5 F) Pulse: [67-81] 70 Resp: [15-30] 15 BP: (80-138)/(38-113) 104/61 Vitals: Temp: 36.4 C (97.5 F) BP: 104/61 Pulse: 70 Resp: 15 SpO2: 93 % SpO2 93 % on non-invasive ventilation (i.e. bi-level) at flow rate 30L/min Subjective CC Asleep on BiPAP ROS See above Exam GA: NAD, AAOX2 HEENT: EOMI, MMM, PERRL Neck: no JVD, no LDN Cardiac: rrr, no m/g/r, +1LE swelling Lung: coarse lung sounds in the upper lung aldridge, normal respiratory effort. On BIPAP Abdomen: obese, soft, nt/nd, nabs Skin: Large erythematous patch on the left knee with satellites erythematous macules and pa tches on the medial and lateral thigh. Mild warmth. No tenderness only over the patella. Mil d effusion. ROM full without Pain. Pych: normal mood and affect Neuro: Forgetful. Have to repeat information multiple time. concrete smoother grossly intact, no focal we akness or sensory deficits Chava Werner DO 06/29/2018 7:15 [facility] Portions of this chart may have been created with valuescope voice recognition software. Occasi onal wrong-word or sound-alike substitutions may have occurred due to the inherent al itations of voice recognition software. Please read the chart carefully and recognize, using context, where these substitutions have occurred Silvina South MD - 06/28/2018 9:50 AM PST [facility] NEPHROLOGY progress note Patient: David Kerr Jr. : 1945 Hospital Day # 2 ASSESMENT AND PLAN 1. LORIE due to ATN, in setting of hypovolemia and septic shock. Non-oliguric. Suspect pt's baseline serum creatinine may be worse than 1.74 mg/dL, after speaking with miguel angel burnett. Will request additional labs from Dr. Drummond's office. Clinically, pt appears more uremic today, increased asterixis and confusion. Therefore, wi ll initiate dialysis therapy today. Discussed with pt and , Lula. They are agreeable to starting. -Will consult general surgery for temp HD catheter. -1st treatment: HD x 4 hrs, 4K, no UF. Plan for 2nd treatment tomorrow. 2. Acute respiratory distress, likely due to pneumonia and CHF. CXR with RLL PNA, cardiomegaly, and pulmonary edema. On antibiotics for PNA. O2 requirement remains unchanged, 40 LPM via high-flow NC. 3. Septic shock, likely due to pneumonia, possible LLE cellulitis. On norepi gtt. On ceftriaxone and azithromycin for CAP. On vancomycin for LLE rash. 4. Hyperphosphatemia. -Renvela with meals. -Dialyze. 5. Thrombocytopenia. Improved. 24 HR EVENTS UOP 900 mL Remains on norepi gtt @ 9-10 mcg/min SUBJECTIVE Pt is oriented to place, year 1999, self. Pt has difficulty tracking conversation. Pt denies pain. CURRENT MEDICATIONS Scheduled Meds: albuterol-ipratropium 3 mL Nebulization RT Q6H aspirin 81 mg Oral Daily atorvaSTATin 40 mg Oral Nightly cefTRIAXone 2 g Intravenous Daily docusate sodium 100 mg Oral BID famotidine 20 mg Intravenous BID insulin lispro 0-6 Units Subcutaneous 4x Daily WC and HS sevelamer carbonate 1,600 mg Oral TID WC traZODone 50 mg Oral Nightly vancomycin per pharmacy Other Pharmacy Consult Continuous Infusions: norepinephrine 9 mcg/min (06/28/18 0941) PRN Meds:Hypoglycemia Management AND POCT Glucose AND dextrose, polyethylene glyco l OBJECTIVE VITAL SIGNS: Vital sign ranges for last 24hrs: Input and output for last 24hrs: Temp: [36.5 C (97.7 F)-37.6 C (99.7 F)] 37.4 C (99.3 F) Pulse: [69-78] 70 Resp: [15-30] 25 BP: (84-138)/(34-108) 90/64 SpO2 Av.5 % Min: 81 % Max: 97 % Flow (L/min) Av Min: 40 Max: 40 06/27 0701 - 06/28 0700 In: 1580.8 [P.O.:1035; I.V.:495.8] Out: 900 [Urine:900] General: In no acute distress Cardiac: Regular rate and rhythm, normal S1 and S2. Trace pitting lower peripheral edema. Chest: Normal respiratory effort. On high-flow nasal cannula. Rhonchi @ R base. Otherw ise moving air well. Abdomen: Soft, non-distended, non-tender, normal bowel sounds. Skin: Erythematous rash over left knee and lateral / medial left thigh is stable; less ov er dorsum of left foot. Non-tender. Neuro: Drowsy. +asterixis, more prominent. Psych: Calm. LABORATORY DATA: Recent Labs Lab 06/28/18 0357 06/27/18 0230 06/26/18 0723 WBC 11.2* 8.6 8.7 HGB 12.8* 12.5* 12.7* HCT 38.5* 37.0* 37.1* PLT 100* 84* 91* Recent Labs Lab 06/28/18 0357 06/27/18 1634 06/27/18 0230 06/26/18 1022 06/26/18 0724 NA 127* 127* 125* < > -- -- K 4.1 3.9 3.6 < > -- -- CL 89* 87* 86* < > -- -- CO2 21* 24 24 < > -- -- BUN 161* 157* 159* < > -- -- CREA 5.56* 5.32* 6.05* < > -- -- CALCIUM 8.0* 8.0* 7.7* < > -- -- PHOS 9.2* -- 8.9* -- -- 8.7* ALBUMIN 2.8* -- 2.9* -- 3.0* -- GLU 151* 136* 98 < > -- -- < > = values in this interval not displayed. Recent Labs Lab 06/27/18 0230 06/26/18 0724 MG 1.8 1.8 Diagnostic Studies: Available data and images were reviewed personally. Significant results and findings are ad dressed here or in the Assessment and Plan. Silvina Alcantar MD Electronically signed: 06/28/2018 9:52 [facility] NEPHROLOG[facility] Chava Morales DO - 06/28/2018 7:[address] [facility] HOSPITALIST PROGRESS NOTE Patient: David Kerr Jr. : 1945: Age: 72 y.o. MedRec: [id number] Admission date: 06/26/2018 Hospital day # : 2 Physician author: Chava Werner DO Today: 06/28/2018 Assessment and Hospital Course Active Hospital Problems Diagnosis Pneumonia due to infectious organism Sepsis Cellulitis of left lower extremity Acute kidney injury superimposed on chronic kidney disease Type 2 diabetes mellitus with stage 4 chronic kidney disease, without long-term current use of insulin Obesity, morbid Resolved Hospital Problems Diagnosis No resolved problems to display. HPI from H&P: Mr Kerr is a 72 y.o. male with a past medical history significant for ische keshawn cardiomyopathy, type II diabetes mellitus, essential hypertension, BPH, F/P AICD, conges tive heart failure who presented to the ED today with progressive weakness, anorexia, produc tive cough, and SOB. History was taken from both the patient and his both are very poo r historians and really did not give a very clear history. About 3 weeks ago he apparently went to see his primary care provider at the [facility] and complained of generalize d swelling and abdominal distention. He was diagnosed with decompensated heart failure and f luid overload and metolazone was added to his diuretic regimen. He was asked to take this 3 times a week. When he went back for a follow-up visit on 19 June he had lost 42 miriam nds in fluid. He said he was feeling better at that time. Then about a week or two ago he started feeling progressively weaker and developed a cough productive of yellowish sputum. He's also been feeling more short of breath than usual. His appetite is completely gone and he has barely been eating or drinking much in the past week. His decided to bring him to the ER today because he was feeling so weak he could barely stand and she was worried ab out his health. Further evaluation here revealed a probable right lower lobe pneumonia and acute kidney injury superimposed on chronic kidney disease stage IV. His creatinine 2 weeks ago was 3.2 with a BUN of 129. I don't have any labs before then so I'm not sure whether t his is actually his baseline or not. In any event today's creatinine is 7.03 which is much worse. In ER, U/S duplex of left leg was negative for DVT. CXR showed a consolidation of RLL. Serum creatinine was elevated to 7.03 mg/dL, BUN 166 mg/dL. Serum potassium is 3.7 meq/L. Plan # Pneumonia due to infectious organism Breathing is stable. Admitted for CAP. No diuresis at this time because of hypotension. Alyce bales some urine. - cont IV ceftriaxone and Zithromax. - follow up on respiratory viral and pathogen panels, Legionella and strep pneumonia urinar y antigens and Mycoplasma antibodies IgM and IgG - F/U sputum culture # Sepsis(POA) # Septic Shock Stable. Most likely due to the pneumonia but there is a possibility that it could be from t he cellulitis as well. - Follow-up on blood cultures - abx as above - stopped IVF due to fluid overload - levophed prn for BP and MAP goals # Acute respiratory failure with hypoxia and hypercapnia Breathing is stable. Declining BiPAP because of discomfort. ABG done and hypercapnia. Likel y multifactorial from fluid overload, CAP, and untreated EVITA. Suspecting chronic hypercapnia from untreated EVITA. - Treatment of underlying etiologies # Acute kidney injury superimposed on CKD IV Slightly worst. He likely has diabetic nephropathy and suspect that he is stage III or IV a t baseline. Making some urine. Spoke to nephrology today. Will start preparation for dialysi s because he continue to have fluid overload and electrolytes abnormalities. Spoke to the pa tient and the . expressed her understanding but patient appear to be confuse. US wi thout hydronephrosis or calcification. - monitor his input and output strictly as well as his daily weights - consulted nephrology, Dr. Silvina Alcantar for further recommendations regarding his renal failure # Acute metabolic encephalopathy Multifactorial from hypercapnia, sepsis, and uremia. - treat underlying etiology as above. # Cellulitis left knee versus prepatellar bursitis: Improving. Pain is resolving. Questionable cellulitis because of the presentation. Likely p repatellar bursitis because there is only pain with palpation and movement. He was given a d ose of vancomycin. - cont abx as above - hold off aspiration at this time because unclear if there is a cellulitis component which may induce pathogen into the bursa if the procedure was done. # Chronic systolic heart failure with acute exacerbation Acute exacerbation from fluid overload. His EF is 35% at baseline - hold his diuretic therapy for now until his renal function recovers somewhat - Continue to monitor his input and output and daily weight # Uncontrolled type II diabetes mellitus His A1c is elevated at 7.7 so it is not at goal. Because he is hypoglycemic today and has markedly reduced renal function, continue to hold oral hypoglycemic medications for the time being. - cont low-dose of SSI - POCT - diet # Elevated TRANSAMINASES: Improving. His LFTs from 06/19 were within the normal range but on admission the AST is mar kedly elevated. US of abdomen with sludge in the gallbladder but no other findings suggestiv e of acute cholecystitis. Mild hepatomegaly and borderline splenomegaly. He may have some un derlying liver disease. - cont to monitor LFTs # Thrombocytopenia Stable. This could be medication induced as a result of his intercurrent infection. He may also have nonalcoholic steatohepatitis causing chronic liver disease. - trend his platelet count # Acute hyponatremia Improving. His sodium was 134 on 06/19 and today it's 127. This maybe due to water retentio n and/or SIADH - Continue to monitor - fluid restriction # Morbid obesity with a BMI greater than 35 He would benefit from outpatient follow-up with a animal nutrition teacher # Moderate protein calorie malnutrition: The patient is at risk for this because he has mandi dly eaten in the past 2 weeks. - consulted nutrition services to give us recommendations regarding improving his nutrition al status Code: Full DVT ppx: SCDs Patient is critically ill and critical care time now exceeds 35 minutes. Allergies: Allergies Allergen Reactions Morphine Other (See Comments) Changes personality to "mean" "get mean" Current Medications: Current Facility-Administered Medications Medication Dose Route Frequency Provider Last Rate Last Dose albuterol-ipratropium 2.5-0.5 mg/3 mL nebulizer solution 3 mL 3 mL Nebulization RT Q6H Mabel Jaimes MD 3 mL at 06/28/187 aspirin EC tablet 81 mg 81 mg Oral Daily Mabel Jaimes MD 81 mg at 06/27/1803 19 atorvaSTATin (LIPITOR) tablet 40 mg 40 mg Oral Nightly Mabel Jaimes MD 40 mg at 06/27/182115 azithromycin (ZITHROMAX) tablet 500 mg 500 mg Oral Daily Mabel Jaimes MD 500 mg at 06/27/18825 cefTRIAXone (ROCEPHIN) 2 g in sodium chloride 0.9% 50 mL IVPB 2 g Intravenous Daily Darin Jaimes MD 100 mL/hr at 06/27/18825 2 g at 06/27/18825 dextrose 50% injection 12.5 g 12.5 g Intravenous PRN Mabel Jaimes MD docusate sodium (COLACE) capsule 100 mg 100 mg Oral BID Mabel Jaimes MD 100 m g at 06/27/182115 famotidine (PEPCID) injection 20 mg 20 mg Intravenous BID Mabel Jaimes MD 20 mg at 06/27/182115 insulin lispro (humaLOG KWIKPEN) injection (pen) 0-6 Units 0-6 Units Subcutaneous 4x D aily WC and HS Mabel Jaimes MD norepinephrine in saline (LEVOPHED) 16 mcg/mL infusion 1-30 mcg/min Intravenous Titrat ed Mabel Jaimes MD 37.5 mL/hr at 06/28/18 0116 10 mcg/min at 06/28/18 0116 polyethylene glycol (MIRALAX) powder 17 g 17 g Oral Daily PRN Mabel Jaimes MD sevelamer carbonate (RENVELA) tablet 1,600 mg 1,600 mg Oral TID Rolan Alba 1,600 mg at 06/27/18 1725 traZODone (DESYREL) tablet 50 mg 50 mg Oral Nightly Mabel Jaimes MD 50 mg at 06/27/18 211 vancomycin per pharmacy Other Pharmacy Consult Mabel Jaimes MD Current Infusions: norepinephrine 10 mcg/min (06/28/18115) Objective Data Point of care glucose Recent Labs Lab 06/28/18 0658 06/27/18 2115 06/27/18 1634 06/27/18 1132 06/27/18 0701 06/26/18 202 POCGLU 137* 149* 123* 112* 87 83 Labs last 24 hours Recent Results (from the past 24 hour(s)) Culture, Respiratory, Lower, Smear Collection Time: 06/27/18 9:38 Result Value Ref Range Gram Stain Result 3+ White Blood Cells Gram Stain Result 2+ Epithelial cells Gram Stain Result 1+ Gram positive cocci Gram Stain Result 1+ Gram negative rods Blood Gas, Arterial Collection Time: 06/27/18 10:38 Result Value Ref Range pH, Arterial 7.26 (L) 7.35 - 7.45 pCO2, Arterial 57 (H) 35 - 45 mm Hg pO2, Arterial 91 >=60 mm Hg HCO3, Arterial 24.9 (H) 18.0 - 23.0 mmol/L Base Excess, Arterial -2.5 (L) -2.0 - 2.0 mmol/L O2 Saturation, Arterial 96 95 - 98 % Hemoglobin, Arterial 12.9 (L) 13.5 - 18 g/dL Oxygenhemoglobin, Arterial 93.0 90.0 - 100.0 % Methemoglobin, Arterial 1.3 0.0 - 1.5 % COHB ART 1.7 (H) 0.0 - 1.5 % FiO2 60.0 % PH TEMP CORRECTED 7.26 PCO2 TEMP CORRECTED 57 mmHg PO2 TEMP CORRECTED 91 mmHg PATIENT TEMP 37.0 POC Glucose Collection Time: 06/27/18 11:32 Result Value Ref Range Glucose, POC 112 (H) 70 - 109 mg/dL Vancomycin Level Collection Time: 06/27/18 16:34 Result Value Ref Range DATE OF LAST DOSE TIME OF LAST DOSE Vancomycin Random 12.2 <=20.0 ug/mL Basic Metabolic Panel Collection Time: 06/27/18 16:34 Result Value Ref Range Na 127 (L) 136 - 149 mmol/L K 3.9 3.5 - 5.1 mmol/L Cl 87 (L) 98 - 109 mmol/L CO2 24 24 - 31 mmol/L Anion Gap 16 3 - 16 mmol/L Glucose 136 (H) 70 - 109 mg/dL BUN 157 (HH) 7 - 18 mg/dL Creatinine 5.32 (H) 0.60 - 1.30 mg/dL eGFR if not 11 (L) >=60 mL/min/1.73m2 Ca 8.0 (L) 8.3 - 10.5 mg/dL BUN/Creatinine Ratio 29.5 POC Glucose Collection Time: 06/27/18 16:34 Result Value Ref Range Glucose, POC 123 (H) 70 - 109 mg/dL POC Glucose Collection Time: 06/27/18 21:15 Result Value Ref Range Glucose, POC 149 (H) 70 - 109 mg/dL Comprehensive Metabolic Panel Collection Time: 06/28/18 3:57 Result Value Ref Range Na 127 (L) 136 - 149 mmol/L K 4.1 3.5 - 5.1 mmol/L Cl 89 (L) 98 - 109 mmol/L CO2 21 (L) 24 - 31 mmol/L Anion Gap 17 (H) 3 - 16 mmol/L Glucose 151 (H) 70 - 109 mg/dL BUN 161 (HH) 7 - 18 mg/dL Creatinine 5.56 (H) 0.60 - 1.30 mg/dL eGFR if not 10 (L) >=60 mL/min/1.73m2 Ca 8.0 (L) 8.3 - 10.5 mg/dL Albumin 2.8 (L) 3.2 - 5.0 g/dL Bilirubin Total 2.1 (H) 0.1 - 1.5 mg/dL Total Protein 6.7 6.0 - 7.8 g/dL AST 60 (H) 10 - 42 U/L ALT 30 6 - 45 U/L Alkaline Phosphatase 187 (H) 40 - 110 U/L Globulin 3.9 (H) 2.1 - 3.8 g/dL Albumin/Globulin Ratio 0.7 (L) 0.8 - 2.0 BUN/Creatinine Ratio 29.0 Phosphorus Collection Time: 06/28/18 3:57 Result Value Ref Range Phosphorus 9.2 (HH) 2.5 - 4.6 mg/dL CBC with Differential Collection Time: 06/28/18 3:57 Result Value Ref Range WBC 11.2 (H) 4.0 - 11.0 K/uL RBC 4.00 (L) 4.30 - 5.70 M/uL Hgb 12.8 (L) 13.5 - 18.0 g/dL Hct 38.5 (L) 40.0 - 51.0 % MCV 96.3 83.0 - 101.0 fL MCH 32.0 28.0 - 35.0 pg MCHC 33.2 32.0 - 36.0 g/dL RDW-CV 15.7 (H) <15.0 % RDW-SD 55.7 (H) 35.1 - 46.3 fL Platelet Count 100 (L) 140 - 440 K/uL MPV 12.4 6.5 - 12.4 fL % Neutrophils 84.4 (H) 45.0 - 82.0 % % Lymphocytes 6.3 (L) 20.0 - 45.0 % % Monocytes 8.8 4.0 - 12.0 % % Eosinophils 0.0 0.0 - 5.0 % % Basophils 0.3 0.0 - 1.0 % % Immature granulocytes 0.2 0.0 - 0.4 % Absolute Neutrophils 9.46 (H) 1.80 - 8.50 K/uL Absolute Lymphocytes 0.71 0.60 - 3.20 K/uL Absolute Monocytes 0.99 0.00 - 1.00 K/uL Absolute Eosinophils 0.00 0.00 - 0.40 K/uL Absolute Basophils 0.03 0.00 - 0.10 K/uL Absolute Imm. Granulocytes 0.02 0.00 - 0.03 K/uL nRBC 0 0 - 2 per 100 WBC's NRBC ABS 0.00 0.00 - 0.01 K/uL Extra Blue Top Tube Collection Time: 06/28/18 3:57 Result Value Ref Range Extra Blue Top Tube Done POC Glucose Collection Time: 06/28/18 6:58 Result Value Ref Range Glucose, POC 137 (H) 70 - 109 mg/dL Micro results Microbiology Results (72 hrs) Procedure Component Value Units Date/Time Culture, Respiratory, Lower, Smear [[id number]] Collected: 06/27/18 0938 Order Status: Completed Lab Status: Preliminary result Updated: 06/27/18 1342 Specimen: Body Fluid from Sputum, Expectorated Gram Stain Result 3+ White Blood Cells 2+ Epithelial cells 1+ Gram positive cocci 1+ Gram negative rods Respiratory Virus Panel, NAAT [[id number]] Collected: 06/26/18 235 Order Status: Sent Lab Status: In process Updated: 06/27/18 0002 Specimen: Tissue from Nasopharynx Respiratory pathogen panel, NAAT [[id number]] Collected: 06/26/182358 Order Status: Completed Lab Status: Final result Updated: 06/28/18 0507 Specimen: Tissue from Nasopharynx ADENOVIRUS Not Detected Coronavirus HKU1 Not Detected Coronavirus NL63 Not Detected Coronavirus 229E Not Detected Coronavirus OC43 Not Detected Human Metapneumovirus Not Detected Rhinovirus/Enterovirus Not Detected INFLUENZA A Not Detected Influenza Virus A H1 RNA Not Detected Influenza A 2009 H1 Not Detected Influenza Virus A H3 RNA Not Detected Influenza B Not Detected Parainfluenza 1 Not Detected Parainfluenza 2 Not Detected Parainfluenza 3 Not Detected Parainfluenza 4 Not Detected RSV Not Detected Bordetella pertussis DNA Not Detected Chlamydophila pneumoniae DNA Not Detected Mycoplasma pneumoniae DNA Not Detected Narrative: Performed at: [address] [place] [id number] [employer] Supervisor: Salazar Ocampo MD, Phone: [phone] Legionella, Ag, EIA, Qual, Urine [[id number]] Collected: 06/26/18 1501 Order Status: Completed Lab Status: Final result Updated: 06/27/18 1311 Specimen: Urine from Urine, Indwelling Catheter L. pneumophila Serogp 1 Ur Ag Negative Comment: Presumptive negative for L. pneumophila serogroup 1 antigen in urine, suggesting no recent or current infection. Legionnaires' disease cannot be ruled out since other serogroups and species may also cause disease. Narrative: Performed at: 01 - [facility] [address] [id number] [employer] Supervisor: Salazar Ocampo MD, Phone: [phone] Culture, Urine [[id number]] (Normal) Collected: 06/26/18 1500 Order Status: Completed Lab Status: Preliminary result Updated: 06/27/18 09 Specimen: Urine from Urine, Clean Catch Culture No growth to date Culture, MRSA [[id number]] Collected: 06/26/18 1312 Order Status: Completed Lab Status: Final result Updated: 06/27/18 0724 Specimen: Tissue from Nares Culture Negative for MRSA by chromogenic agar method 3+ Coagulase positive Staphylococcus Culture, Blood [[id number]] (Normal) Collected: 06/26/18 1022 Order Status: Completed Lab Status: Preliminary result Updated: 06/26/18 223 Specimen: Blood from Peripheral Blood Culture No growth: Monitored continually by instrument for 5 days Culture, Blood [[id number]] (Normal) Collected: 06/26/18 0924 Order Status: Completed Lab Status: Preliminary result Updated: 06/26/18 214 Specimen: Blood from Line Culture No growth: Monitored continually by instrument for 5 days Radiology results Us Abdomen Complete Result Date: 06/26/2018 TECHNIQUE: Abdominal B-mode ultrasound with color and duplex doppler CLINICAL INFORMATION: Elevated LFTs and LORIE on CKD. COMPARISON: CT 12/12/2015. FINDINGS: LIVER: Size: Hepatomegaly measuring up to 21.9 cm. Echogenicity: Normal. Surface nodularity: None. Mass (size and loca tion): None. Portal Vein: Hepatopedal flow. BILE DUCTS: Intrahepatic ducts: Normal. Common bile duct diameter: 5 mm GALLBLADDER: Gallstones: No definite stones identified. Gallbladde r sludge: Heterogeneous sludge. Gallbladder wall thickening: The gallbladder is contracted a nd the wall measures up to 4 mm. Pericholecystic fluid: None. Sonographic Gruber sign: Absen t. PANCREAS: Pancreatic duct measures 3 mm in diameter, upper limits of normal. Imaged vale creas is without evidence of mass lesion. SPLEEN: Borderline splenomegaly measuring 12.2 cm. RIGHT KIDNEY: Hydronephrosis: None. Calcification: None. Mass: None. Size: 12.6 cm in long axis LEFT KIDNEY: Hydronephrosis: None. Calcification: None. Mass: None. Size: 12.1 cm in lo ng axis ABDOMINAL AORTA: Visualized portions are normal. ASCITES: Minimal IMPRESSION - Slud ge within the contracted gallbladder with expected mild wall thickening. No other findings to suggest acute cholecystitis. Mild hepatomegaly and borderline splenomegaly. Dictated and Signed by: Sheldon Gatica MD Electronically signed: 06/26/2018 3:41 PM Xr Chest Ap Portable Result Date: 06/27/2018 CLINICAL INFORMATION: hypoxia. COMPARISON: None available. FINDINGS: Portable frontal chest radiograph Lungs: Mixed interstitial and alveolar opacities are noted in a perihilar and lo wer lobe predominant distribution, right greater than left. Asymmetric opacities at the rig ht lung base. No pleural effusion or pneumothorax. Heart/mediastinum: Stable cardiomegaly. Median sternotomy changes. Left chest multi lead cardiac device. Bones: No acute osseous ab normality appreciated. IMPRESSION - Cardiomegaly with with pulmonary edema. The asymmetric opacities at the right lung base may reflect atelectasis and/or pneumonia. Dictated and Sign ed by: Sheldon Gatica MD Electronically signed: 06/27/2018 8:53 AM Xr Chest Ap Portable Result Date: 06/26/2018 EXAM: XR CHEST AP PORTABLE dated 06/26/2018 4:27 PM HISTORY: Confirm placement position of P ICC Comparison: 06/26/2018 TECHNIQUE: A single portable view of the chest. FINDINGS: Interval placement of a right approach PICC line. On the final image obtained at 1615 hours the tip of the catheter is near the cavoatrial junction. There is persistent cardiomegaly and promi nence of pulmonary vasculature. Grossly unchanged positioning of atrial and ventricular lead s from an implanted device on the left chest. Asymmetric airspace disease in the right lowe r lung may be atelectasis or infiltrate. IMPRESSION - PICC catheter tip near the cavoatrial junction. Dictated and Signed by: Chet Cuevas MD Electronically signed: 06/26/2018 4:35 PM Xr Chest Ap Portable Result Date: 06/26/2018 CLINICAL INFORMATION: CHF, shortness of breath. COMPARISON: 12/12/2015. FINDINGS: Portable f rontal chest radiograph. Lungs: Mild prominence of the central pulmonary vasculature and int erstitial lung markings. Asymmetric opacities are noted at the right lung base. No pleural effusion or pneumothorax. Heart/mediastinum: Stable cardiomegaly. Left chest cardiac pacer device is stable. Median sternotomy changes. Bones: No acute osseous abnormality appreciat ed. IMPRESSION - Stable cardiomegaly with mild pulmonary edema. Focal airspace opacities at the right lung base may represent atelectasis, although, pneumonia is also a consideration. Dictated and Signed by: Sheldon Gatica MD Electronically signed: 06/26/2018 9:41 AM Vas Lower Extremity Venous Left Result Date: 06/26/2018 TECHNIQUE: Left lower extremity B-mode ultrasound with color and duplex Doppler. CLINICAL I NFORMATION: Leg swelling and pain. COMPARISON: None available. FINDINGS: Normal flow, compr essibility and augmentation of the visualized deep venous structures. IMPRESSION - No eviden ce of DVT. Notification: A preliminary report was relayed to the ordering provider by [facility] immediately following the exam. Dictated and Signed by: Sheldon hurley MD Electronically signed: 06/26/2018 11:27 AM Vitals Ranges: Temp: [36.5 C (97.7 F)-37.6 C (99.7 F)] 37.4 C (99.3 F) Pulse: [67-77] 72 Resp: [14-29] 23 BP: (86-134)/(34-108) 108/40 Vitals: Temp: 37.4 C (99.3 F) BP: 108/40 Pulse: 72 Resp: 23 SpO2: 92 % SpO2 92 % on high-flow nasal cannula at flow rate 40L/min Subjective CC Breathing is about the same. reported that he did not tolerate the BIPAP because it is hard for him to cough. He is confused to her since he was admitted. She stated that he h ave selective hearing and only absorb the information he wants to. He tend to be in denial o f bad news. His left knee pain is improved. ROS See above Exam GA: NAD, AAOX2 HEENT: EOMI, MMM Neck: no JVD, no LDN Cardiac: rrr, no m/g/r, +1LE swelling Lung:diffuse expiratory wheezing, coarse lung sounds in the upper lung aldridge, mild increas ed respiratory effort Abdomen: obese, soft, nt/nd, nabs Skin: Large erythematous patch on the left knee with satellites erythematous macules and pa tches on the medial and lateral thigh. Mild warmth. No tenderness only over the patella. Mil d effusion. ROM full without Pain. Pych: normal mood and affect Neuro: Forgetful. Have to repeat information multiple time. concrete smoother grossly intact, no focal we akness or sensory deficits Chava Werner DO 06/28/2018 7:07 [facility] Portions of this chart may have been created with [employer]cope voice recognition software. Occasi onal wrong-word or sound-alike substitutions may have occurred due to the inherent al itations of voice recognition software. Please read the chart carefully and recognize, using context, where these substitutions have occurred Cici Almanza, PharmD - 06/27/2018 10:42 AM PST VANCOMYCIN PER PHARMACY PROTOCOL: AMS/Drug Name - Vancomycin Patient: David Kerr Jr. [id number] Admit: 06/26/2018 6:37 RELEVANT ALLERGIES: n/a 72 yrs old male patient admitted on 06/26/2018 for progressive weakness with product cough and SOB x1 month. Patient is receiving vancomycin starting on 06/26/2018 for SSTI of knee. Gwendolyn key has a past medical history of Chest pain; Claustrophobia; Diabetes type 2, controlle d (HCC); Gout; Heart attack (HCC); Hypercholesteremia; Hypertension; and Pacemaker. HPI: About 3 weeks ago he apparently went to see his primary care provider at the [facility] and complained of generalized swelling and abdominal distention. He was diagnosed with decompensated heart failure and fluid overload and metolazone was added to his diuretic regimen. He was asked to take this 3 times a week. When he went back for a follow-up visi t on 19 June he had lost 42 pounds in fluid. He said he was feeling better at that t ky. Then about a week or two ago he started feeling progressively weaker and developed a c ough productive of yellowish sputum. He's also been feeling more short of breath than usual Antimicrobials - Current Antibiotic Dates of Therapy Vancomycin 06/26- Ceftriaxone 06/26- 07/02 Azithromycin /- 06/29 Antimicrobials - Discontinued Antibiotic Dates of Therapy Micro/Cultures/Diagnostics: Microbiology Results (Last 14 Days by Collected Date with Culture/Sensitivity) Procedure Component Value Units Date/Time Culture, Respiratory, Lower, Smear [[id number]] Collected: 06/27/18 0938 Order Status: Completed Lab Status: Preliminary result Updated: 06/27/18 1342 Specimen: Body Fluid from Sputum, Expectorated Gram Stain Result 3+ White Blood Cells 2+ Epithelial cells 1+ Gram positive cocci 1+ Gram negative rods Respiratory Virus Panel, NAAT [[id number]] Collected: 06/26/182358 Order Status: Sent Lab Status: In process Updated: 06/27/181 Specimen: Tissue from Nasopharynx Respiratory pathogen panel, NAAT [[id number]] Collected: 06/26/182358 Order Status: Sent Lab Status: In process Updated: 06/27/181 Specimen: Tissue from Nasopharynx Legionella, Ag, EIA, Qual, Urine [[id number]] Collected: 06/26/18 1501 Order Status: Completed Lab Status: Final result Updated: 06/27/18 131 Specimen: Urine from Urine, Indwelling Catheter L. pneumophila Serogp 1 Ur Ag Negative Comment: Presumptive negative for L. pneumophila serogroup 1 antigen in urine, suggesting no recent or current infection. Legionnaires' disease cannot be ruled out since other serogroups and species may also cause disease. Narrative: Performed at: [address] [place] [id number] [employer] Supervisor: Salazar Ocampo MD, Phone: [phone] Culture, Urine [[id number]] (Normal) Collected: 06/26/18 1500 Order Status: Completed Lab Status: Preliminary result Updated: 06/27/18 09 Specimen: Urine from Urine, Clean Catch Culture No growth to date Culture, MRSA [[id number]] Collected: 06/26/18 1312 Order Status: Completed Lab Status: Final result Updated: 06/27/18 0724 Specimen: Tissue from Nares Culture Negative for MRSA by chromogenic agar method 3+ Coagulase positive Staphylococcus Culture, Blood [[id number]] (Normal) Collected: 06/26/18 1022 Order Status: Completed Lab Status: Preliminary result Updated: 06/26/18 223 Specimen: Blood from Peripheral Blood Culture No growth: Monitored continually by instrument for 5 days Culture, Blood [[id number]] (Normal) Collected: 06/26/18 0924 Order Status: Completed Lab Status: Preliminary result Updated: 06/26/182140 Specimen: Blood from Line Culture No growth: Monitored continually by instrument for 5 days Relevant cultures from previous admits:N/A Admission Wt: Weight: 109.5 kg (241 lb 6.5 oz) Current Wt: Weight: 112.8 kg (248 lb 10.9 oz ) Min/Max Temp past 24 hours:Temp Av.5 C (97.7 F) Min: 35.7 C (96.2 F) Max: 3 6.7 C (98.1 F) Estimated Creatinine Clearance: 15 mL/min (A) (based on SCr of 5.32 mg/dL (H)). Intake/Output Summary (Last 24 hours) at 06/27/18 1658 Last data filed at 06/27/18 1600 Gross per 24 hour Intake 2724.1 ml Output 1003 ml Net 1721.1 ml Temp: [36.4 C (97.5 F)-36.7 C (98.1 F)] 36.7 C (98.1 F) Pulse: [67-76] 73 Resp: [11-31] 20 BP: (75-136)/(32-96) 103/56 Recent Labs Lab 06/27/18 1634 06/27/18 0230 06/26/18 1750 06/26/18 1022 06/26/18 0724 06/26/18 0723 WBC -- 8.6 -- -- -- 8.7 CREA 5.32* 6.05* 6.71* -- -- 7.03* LACTATE -- 0.7 -- 0.7 -- -- VANCORANDOM 12.2 -- -- -- -- -- PROCALCITONI -- 32.77* -- -- 51.92* -- Imagin/3: VAS LE - No evidence of DVT. 06/26: CXR - Stable cardiomegaly with mild pulmonary edema. Focal airspace opacities at the right lung base may represent atelectasis, although, pneumonia is also a consideration. 06/27 CXR: Cardiomegaly with with pulmonary edema. The asymmetric opacities at the right l mary base may reflect atelectasis and/or pneumonia. Date 06/26 06/27 Time of Vancomycin draw -- 1634 Vancomycin result -- 12.2 LEVEL or TROUGH -- level Serum Creatinine 7.03 6.05 CrCl (mL/min) 11 13 Vanco load/bolus 1250 mg 1000 mg Vanco dose - current -- -- Vanco dose - new -- -- Assessment: Vancomycin Day # 2 Other antibiotics: rocephin and azithromycin Target Trough: 13-17 mcg/ml for pneumonia and SSTI of knee WBC: WNL; Renal: CKD, AKII; Temp: afebrile; Culture: blood - ngtd, resp - pending, MRSA - negative, Urine ngtd; VS: tachypnea, hypotensive Renal function: UOP: 0.3 ml/kg/hr, not receiving dialysis currently Pulse dose vanco d/t renal function; AdjBw of 83.5 kg Plan: 1. Vancomycin load of 1250 mg (~15 mg/kg) IVPB x 1 given on 06/26/2018 @1700 2. Next dose given 1000 mg (~12 mg/kg) IVPB x1 on 06/27 3. Vancomycin level due 06/28 @ 1700 4. Serum creatinine DAILY for first 3 days, then at least every 3 days while on vancomycin. 5. Will monitor renal function, clinical status, infection [...] and Monitoring Protocol Electronically signed by: Angela Clark, PharmD 06/27/2018 10:42 Dosing addendum by Cici Jon, HildaD 06/27/2018 17:08 Silvina South MD - 06/27/2018 9:18 AM PST [facility] NEPHROLOGY progress note Patient: David Kerr . : 1945 Hospital Day # 1 ASSESMENT AND PLAN 1. LORIE due to ATN, in setting of hypovolemia and septic shock. Suspect pt's baseline serum creatinine may be worse than 1.74 mg/dL, after speaking with miguel angel burnett. Will request additional labs from Dr. Drummond's office. Pt is oliguric. Serum creatinine is down a bit. IVF discontinued due to increase in hypoxia. Pt is on norepi gtt for hypotension, @ 12 mcg/min. -Continue supportive therapy. -Will monitor UOP and clinical status. Pt is clinically tenuous at this time, maicol in regar ds to his respiration and mental status. Risk and benefit of dialysis was discussed with Lula jimenez. 2. Acute respiratory distress, likely due to pneumonia and CHF. On treatment for CAP. Pt is having increased oxygen need, and wheezing. IVF discontinued. CXR with cardiomegaly and pulmonary edema. -ABG to evaluate for hypercapnia. -BIPAP per RT. 3. Septic shock, likely due to pneumonia, possible LLE cellulitis. On norepi gtt. On ceftriaxone and azithromycin for CAP. On vancomycin for LLE rash. 4. Hyperphosphatemia. -Renvela with meals. 24 HR EVENTS UOP 755 mL (net +2.2 Liters) SUBJECTIVE Pt is more drowsy this morning. Pt denies pain. Pt denies feeling short of breath. , Lula, at bedside. Per Lula, pt met with Dr. Drummond on 06/19/18, at which time, he re viewed the lab results and pt's clinical status; pt was instructed to reduce metolazone to t hree times a week. Pt is not on Eplerenone; Lula reports this was discontinued by Dr. Augustine batres while back. Other medications were correct: furosemide 40 mg BID, carvedilol 25 mg BID, losartan 50 mg BID. CURRENT MEDICATIONS Scheduled Meds: albuterol-ipratropium 3 mL Nebulization RT Q6H aspirin 81 mg Oral Daily atorvaSTATin 40 mg Oral Nightly azithromycin 500 mg Oral Daily cefTRIAXone 2 g Intravenous Daily docusate sodium 100 mg Oral BID famotidine 20 mg Intravenous BID insulin lispro 0-6 Units Subcutaneous 4x Daily WC and HS traZODone 50 mg Oral Nightly vancomycin per pharmacy Other Pharmacy Consult Continuous Infusions: norepinephrine 12 mcg/min (06/27/18 0800) PRN Meds:Hypoglycemia Management AND POCT Glucose AND dextrose, polyethylene glyco l OBJECTIVE VITAL SIGNS: Vital sign ranges for last 24hrs: Input and output for last 24hrs: Temp: [35.7 C (96.2 F)-36.7 C (98.1 F)] 36.5 C (97.7 F) Pulse: [67-76] 70 Resp: [11-31] 21 BP: (75-140)/(32-96) 118/60 SpO2 Av.6 % Min: 84 % Max: 99 % Flow (L/min) Av.1 Min: 3 Max: 40 06/26 0701 - 06/27 0700 In: 2977.3 [I.V.:1657.3] Out: 758 [Urine:755] General: In no acute distress Cardiac: Regular rate and rhythm, normal S1 and S2. No RLE edema. Trace LLE peripheral edema. Chest: Normal respiratory effort. Inspiratory and expiratory wheezes throughout. Abdomen: Obese, soft, non-tender, normal bowel sounds. Skin: Erythematous rash over dorsum of left foot, left knee, lateral and medial left thig h, non-tender to palpation, non-petechial. Neuro: Less alert, more drowsy. Mild asterixis. LABORATORY DATA: Recent Labs Lab 06/27/18 0230 06/26/18 0723 WBC 8.6 8.7 HGB 12.5* 12.7* HCT 37.0* 37.1* PLT 84* 91* Recent Labs Lab 06/27/18 0230 06/26/18 1750 06/26/18 1022 06/26/18 0724 06/26/18 0723 NA 125* 125* -- -- 124* K 3.6 3.6 -- -- 3.7 CL 86* 83* -- -- 80* CO2 24 26 -- -- 27 BUN 159* 161* -- -- 166* CREA 6.05* 6.71* -- -- 7.03* CALCIUM 7.7* 7.6* -- -- 8.2* PHOS 8.9* -- -- 8.7* -- ALBUMIN 2.9* -- 3.0* -- -- GLU 98 114* -- -- 55* Recent Labs Lab 06/27/18 0230 06/26/18 0724 MG 1.8 1.8 Diagnostic Studies: Available data and images were reviewed personally. Significant results and findings are ad dressed here or in the Assessment and Plan. Silvina Alcantar MD Electronically signed: 06/27/2018 9:20 [facility] NEPHROLOGY Chava Morales DO - 06/27/2018 7:18 AM PST [place] [place] [facility]ITAL[facility] PROGRESS NOTE Patient: David Kerr Jr. : 1945: Age: 72 y.o. MedRec: [id number] Admission date: 06/26/2018 Hospital day # : 1 Physician author: Chava Werner DO Today: 06/27/2018 Assessment and Hospital Course Active Hospital Problems Diagnosis Pneumonia due to infectious organism Sepsis Cellulitis of left lower extremity Acute kidney injury superimposed on chronic kidney disease Type 2 diabetes mellitus with stage 4 chronic kidney disease, without long-term current use of insulin Obesity, morbid Resolved Hospital Problems Diagnosis No resolved problems to display. HPI from H&P: Mr Kerr is a 72 y.o. male with a past medical history significant for ische keshawn cardiomyopathy, type II diabetes mellitus, essential hypertension, BPH, F/P AICD, conges tive heart failure who presented to the ED today with progressive weakness, anorexia, produc tive cough, and SOB. History was taken from both the patient and his both are very poo r historians and really did not give a very clear history. About 3 weeks ago he apparently went to see his primary care provider at the [facility] and complained of generalize d swelling and abdominal distention. He was diagnosed with decompensated heart failure and f luid overload and metolazone was added to his diuretic regimen. He was asked to take this 3 times a week. When he went back for a follow-up visit on 19 June he had lost 42 miriam nds in fluid. He said he was feeling better at that time. Then about a week or two ago he started feeling progressively weaker and developed a cough productive of yellowish sputum. He's also been feeling more short of breath than usual. His appetite is completely gone and he has barely been eating or drinking much in the past week. His decided to bring him to the ER today because he was feeling so weak he could barely stand and she was worried ab out his health. Further evaluation here revealed a probable right lower lobe pneumonia and acute kidney injury superimposed on chronic kidney disease stage IV. His creatinine 2 weeks ago was 3.2 with a BUN of 129. I don't have any labs before then so I'm not sure whether t his is actually his baseline or not. In any event today's creatinine is 7.03 which is much worse. In ER, U/S duplex of left leg was negative for DVT. CXR showed a consolidation of RLL. Serum creatinine was elevated to 7.03 mg/dL, BUN 166 mg/dL. Serum potassium is 3.7 meq/L. Plan # Pneumonia due to infectious organism Breathing is worse. Likely from fluid overload. Admitted for CAP. No diuresis at this time because of hypotension. Making some urine. - cont IV ceftriaxone and Zithromax. - follow up on respiratory viral and pathogen panels, Legionella and strep pneumonia urinar y antigens and Mycoplasma antibodies IgM and IgG - F/U sputum culture # Sepsis(POA) Stable. Most likely due to the pneumonia but there is a possibility that it could be from t he cellulitis as well. - Follow-up on blood cultures - abx as above - stopped IVF due to fluid overload # Acute respiratory failure with hypoxia Likely multifactorial from fluid overload, CAP, and untreated EVITA. - Treatment of underlying etiologies # Acute kidney injury superimposed on CKD IV Slight improvement. He likely has diabetic nephropathy and I suspect that he is stage III o r IV at baseline. Making some urine. Spoke to nephrology today. No dialysis or diuretic at t his time and is ok with holding IVF. US without hydronephrosis or calcification. - Stopped IV fluid hydration - monitor his input and output strictly as well as his daily weights - consulted nephrology, Dr. Silvina Alcantar for further recommendations regarding his renal failure # Cellulitis left knee versus prepatellar bursitis: Questionable cellulitis because of the presentation. Likely prepatellar bursitis because th ere is only pain with palpation and movement. He was given a dose of vancomycin. - cont abx as above - hold off aspiration at this time because unclear if there is a cellulitis component which may induce pathogen into the bursa if the procedure was done. # Chronic systolic heart failure with acute exacerbation Acute exacerbation from fluid overload. His EF is 35% at baseline - hold his diuretic therapy for now until his renal function recovers somewhat - Continue to monitor his input and output and daily weight # Uncontrolled type II diabetes mellitus His A1c is elevated at 7.7 so it is not at goal. Because he is hypoglycemic today and has markedly reduced renal function, continue to hold oral hypoglycemic medications for the time being. - cont low-dose of SSI - POCT - diet # Elevated TRANSAMINASES: His LFTs from 06/19 were within the normal range but on admission the AST is markedly elevated. US of abdomen with sludge in the gallbladder but no other fin dings suggestive of acute cholecystitis. Mild hepatomegaly and borderline splenomegaly. He m ay have some underlying liver disease. - cont to monitor LFTs # Thrombocytopenia Stable. This could be medication induced as a result of his intercurrent infection. He may also have nonalcoholic steatohepatitis causing chronic liver disease. - trend his platelet count # Acute hyponatremia His sodium was 134 on 06/19 and today it's 125. This maybe due to water retention and/or SI ADH - Continue to monitor - fluid restriction # Morbid obesity with a BMI greater than 35 He would benefit from outpatient follow-up with a animal nutrition teacher # Moderate protein calorie malnutrition: The patient is at risk for this because he has mandi dly eaten in the past 2 weeks. - consulted nutrition services to give us recommendations regarding improving his nutrition al status Code: Full DVT ppx: SCDs Patient is critically ill and critical care time now exceeds 35 minutes. Allergies: Allergies Allergen Reactions Morphine Other (See Comments) Changes personality to "mean" "get mean" Current Medications: Current Facility-Administered Medications Medication Dose Route Frequency Provider Last Rate Last Dose albuterol-ipratropium 2.5-0.5 mg/3 mL nebulizer solution 3 mL 3 mL Nebulization RT Q6H Mabel Jaimes MD 3 mL at 06/27/18 0241 aspirin EC tablet 81 mg 81 mg Oral Daily Mabel Jaimes MD 81 mg at 06/26/18 15 21 atorvaSTATin (LIPITOR) tablet 40 mg 40 mg Oral Nightly Mabel Jaimes MD 40 mg at 06/26/182027 azithromycin (ZITHROMAX) tablet 500 mg 500 mg Oral Daily Mabel Jaimes MD 500 mg at 06/26/18 1520 cefTRIAXone (ROCEPHIN) 2 g in sodium chloride 0.9% 50 mL IVPB 2 g Intravenous Daily Darin Jaimes MD dextrose 5% and sodium chloride 0.9% (D5 NS) infusion Intravenous Continuous Nancy Jaimes MD Stopped at 06/27/18 023 dextrose 50% injection 12.5 g 12.5 g Intravenous PRN Mabel Jaimes MD docusate sodium (COLACE) capsule 100 mg 100 mg Oral BID Mabel Jaimes MD 100 m g at 06/26/182027 famotidine (PEPCID) injection 20 mg 20 mg Intravenous BID Mabel Jaimes MD 20 mg at 06/26/182027 insulin lispro (humaLOG KWIKPEN) injection (pen) 0-6 Units 0-6 Units Subcutaneous 4x D aily WC and HS Mabel Jaimes MD norepinephrine in saline (LEVOPHED) 16 mcg/mL infusion 1-30 mcg/min Intravenous Titrat ed Mabel Jaimes MD 45 mL/hr at 06/27/18 0610 12 mcg/min at 06/27/18 06 polyethylene glycol (MIRALAX) powder 17 g 17 g Oral Daily PRN Mabel Jaimes MD traZODone (DESYREL) tablet 50 mg 50 mg Oral Nightly Mabel Jaimes MD 50 mg at 06/26/182225 vancomycin per pharmacy Other Pharmacy Consult Mabel Jaimes MD Current Infusions: dextrose 5% and sodium chloride 0.9% Stopped (06/27/18 023) norepinephrine 12 mcg/min (06/27/18 0610) Objective Data Point of care glucose Recent Labs Lab 06/27/18 0701 06/26/18202406/26/18 1713 06/26/18 1321 06/26/18 1143 POCGLU 87 83 122* 84 82 Labs last 24 hours Recent Results (from the past 24 hour(s)) CBC with Differential Collection Time: 06/26/18 7:23 Result Value Ref Range WBC 8.7 4.0 - 11.0 K/uL RBC 3.95 (L) 4.30 - 5.70 M/uL Hgb 12.7 (L) 13.5 - 18.0 g/dL Hct 37.1 (L) 40.0 - 51.0 % MCV 93.9 83.0 - 101.0 fL MCH 32.2 28.0 - 35.0 pg MCHC 34.2 32.0 - 36.0 g/dL RDW-CV 15.9 (H) <15.0 % RDW-SD 54.8 (H) 35.1 - 46.3 fL Platelet Count 91 (L) 140 - 440 K/uL MPV 13.1 (H) 6.5 - 12.4 fL Immature Platelet Fraction 7.6 0.9 - 11.2 % % Neutrophils 80.0 45.0 - 82.0 % % Lymphocytes 10.7 (L) 20.0 - 45.0 % % Monocytes 8.3 4.0 - 12.0 % % Eosinophils 0.3 0.0 - 5.0 % % Basophils 0.2 0.0 - 1.0 % % Immature granulocytes 0.5 (H) 0.0 - 0.4 % Absolute Neutrophils 6.97 1.80 - 8.50 K/uL Absolute Lymphocytes 0.93 0.60 - 3.20 K/uL Absolute Monocytes 0.72 0.00 - 1.00 K/uL Absolute Eosinophils 0.03 0.00 - 0.40 K/uL Absolute Basophils 0.02 0.00 - 0.10 K/uL Absolute Imm. Granulocytes 0.04 (H) 0.00 - 0.03 K/uL nRBC 0 0 - 2 per 100 WBC's NRBC ABS 0.00 0.00 - 0.01 K/uL Basic Metabolic Panel Collection Time: 06/26/18 7:23 Result Value Ref Range Na 124 (L) 136 - 149 mmol/L K 3.7 3.5 - 5.1 mmol/L Cl 80 (L) 98 - 109 mmol/L CO2 27 24 - 31 mmol/L Anion Gap 17 (H) 3 - 16 mmol/L Glucose 55 (L) 70 - 109 mg/dL BUN 166 (HH) 7 - 18 mg/dL Creatinine 7.03 (H) 0.60 - 1.30 mg/dL eGFR if not 8 (L) >=60 mL/min/1.73m2 Ca 8.2 (L) 8.3 - 10.5 mg/dL BUN/Creatinine Ratio 23.6 B Type Natriuretic Peptide Collection Time: 06/26/18 7:23 Result Value Ref Range BNP 182 (H) <100 pg/mL Extra Green Top Tube Collection Time: 06/26/18 7:24 Result Value Ref Range Extra Green Top Tube Done Extra Blue Top Tube Collection Time: 06/26/18 7:24 Result Value Ref Range Extra Blue Top Tube Done Procalcitonin Collection Time: 06/26/18 7:24 Result Value Ref Range Procalcitonin 51.92 (HH) <=0.50 ng/mL Comment Uric Acid Collection Time: 06/26/18 7:24 Result Value Ref Range Uric Acid 10.6 (H) 2.6 - 7.2 mg/dL Magnesium Collection Time: 06/26/18 7:24 Result Value Ref Range Magnesium 1.8 1.8 - 2.5 mg/dL Phosphorus Collection Time: 06/26/18 7:24 Result Value Ref Range Phosphorus 8.7 (HH) 2.5 - 4.6 mg/dL Protime INR Collection Time: 06/26/18 7:24 Result Value Ref Range Protime 13.5 11.3 - 13.9 seconds INR 1.0 0.9 - 1.1 PTT Collection Time: 06/26/18 7:24 Result Value Ref Range PTT 36 22 - 36 seconds Culture, Blood Collection Time: 06/26/18 9:24 Result Value Ref Range Culture No growth: Monitored continually by instrument for 5 days Culture, Blood Collection Time: 06/26/18 10:22 Result Value Ref Range Culture No growth: Monitored continually by instrument for 5 days Lactic Acid Collection Time: 06/26/18 10:22 Result Value Ref Range Lactate 0.7 0.5 - 2.2 mmol/L Extra Lavender Top Tube Collection Time: 06/26/18 10:22 Result Value Ref Range Extra Lavender Top Tube Done Extra Green Top Tube Collection Time: 06/26/18 10:22 Result Value Ref Range Extra Green Top Tube Done Hepatic Function Panel Collection Time: 06/26/18 10:22 Result Value Ref Range Bilirubin Total 2.2 (H) 0.1 - 1.5 mg/dL Total Protein 7.0 6.0 - 7.8 g/dL Albumin 3.0 (L) 3.2 - 5.0 g/dL AST 103 (H) 10 - 42 U/L ALT 35 6 - 45 U/L Alkaline Phosphatase 161 (H) 40 - 110 U/L Globulin 4.0 (H) 2.1 - 3.8 g/dL Albumin/Globulin Ratio 0.8 0.8 - 2.0 Bilirubin, Direct 1.10 (H) 0.00 - 0.20 mg/dl Parathyroid Hormone, Intact Collection Time: 06/26/18 10:22 Result Value Ref Range PTH Intact 416 (H) 12 - 88 pg/mL Hemoglobin A1C Collection Time: 06/26/18 10:22 Result Value Ref Range Hemoglobin A1c 7.7 (H) 4.3 - 6.0 % Estimated Average Glucose 174 mg/dL Troponin I Collection Time: 06/26/18 10:22 Result Value Ref Range Troponin I 0.05 <0.06 ng/mL POC Glucose Collection Time: 06/26/18 11:43 Result Value Ref Range Glucose, POC 82 70 - 109 mg/dL Extra Lavender Top Tube Collection Time: 06/26/18 11:54 Result Value Ref Range Extra Lavender Top Tube Done POC Glucose Collection Time: 06/26/18 13:21 Result Value Ref Range Glucose, POC 84 70 - 109 mg/dL Urinalysis with Microscopic with Culture if Indicated Collection Time: 06/26/18 15:00 Result Value Ref Range Color [place] (A) Light Yellow, Yellow, Straw Clarity Cloudy (A) Clear pH, Urine 5.0 5.0 - 8.0 Specific [place] 1.015 1.001 - 1.030 Protein, Urine 30 mg/dL (A) Negative Blood, Urine Moderate (A) Negative Glucose, Urine Negative Negative Ketones, Urine Negative Negative Bilirubin, Urine Negative Negative Nitrite, Urine Negative Negative Leukocyte Esterase, Urine Small (A) Negative Urobilinogen, Urine 4.0 mg/dL (A) 0.2 mg/dL, 1.0 mg/dL, Negative WBC UA 25-50 (A) 0 - 2 /HPF WBC CLUMPS UA Moderate (A) None Seen /HPF RBC UA 50-100 (A) 0 - 2 /HPF SQUAMOUS EPITHELIAL UA 50-100 (A) 0 - 2 /LPF BACTERIA UA 1+ (A) Negative /HPF MUCUS UA Present (A) Negative /LPF AMORPHOUS CRYSTALS Few (A) None Seen /HPF HYALINE CASTS UA 10-15 (A) 0 - 2 /LPF URINE COMMENT Urine Culture Set Up POC Glucose Collection Time: 06/26/18 17:13 Result Value Ref Range Glucose, POC 122 (H) 70 - 109 mg/dL Basic Metabolic Panel Collection Time: 06/26/18 17:50 Result Value Ref Range Na 125 (L) 136 - 149 mmol/L K 3.6 3.5 - 5.1 mmol/L Cl 83 (L) 98 - 109 mmol/L CO2 26 24 - 31 mmol/L Anion Gap 16 3 - 16 mmol/L Glucose 114 (H) 70 - 109 mg/dL BUN 161 (HH) 7 - 18 mg/dL Creatinine 6.71 (H) 0.60 - 1.30 mg/dL eGFR if not 8 (L) >=60 mL/min/1.73m2 Ca 7.6 (L) 8.3 - 10.5 mg/dL BUN/Creatinine Ratio 24.0 CK Total Collection Time: 06/26/18 17:50 Result Value Ref Range CK TOTAL 765 (H) 22 - 269 U/L POC Glucose Collection Time: 06/26/18 20:25 Result Value Ref Range Glucose, POC 83 70 - 109 mg/dL CBC with Differential Collection Time: 06/27/18 2:30 Result Value Ref Range WBC 8.6 4.0 - 11.0 K/uL RBC 3.90 (L) 4.30 - 5.70 M/uL Hgb 12.5 (L) 13.5 - 18.0 g/dL Hct 37.0 (L) 40.0 - 51.0 % MCV 94.9 83.0 - 101.0 fL MCH 32.1 28.0 - 35.0 pg MCHC 33.8 32.0 - 36.0 g/dL RDW-CV 15.9 (H) <15.0 % RDW-SD 55.0 (H) 35.1 - 46.3 fL Platelet Count 84 (L) 140 - 440 K/uL MPV 12.2 6.5 - 12.4 fL Immature Platelet Fraction 7.4 0.9 - 11.2 % % Neutrophils 78.9 45.0 - 82.0 % % Lymphocytes 10.2 (L) 20.0 - 45.0 % % Monocytes 10.2 4.0 - 12.0 % % Eosinophils 0.1 0.0 - 5.0 % % Basophils 0.2 0.0 - 1.0 % % Immature granulocytes 0.4 0.0 - 0.4 % Absolute Neutrophils 6.75 1.80 - 8.50 K/uL Absolute Lymphocytes 0.87 0.60 - 3.20 K/uL Absolute Monocytes 0.87 0.00 - 1.00 K/uL Absolute Eosinophils 0.01 0.00 - 0.40 K/uL Absolute Basophils 0.02 0.00 - 0.10 K/uL Absolute Imm. Granulocytes 0.03 0.00 - 0.03 K/uL nRBC 0 0 - 2 per 100 WBC's NRBC ABS 0.00 0.00 - 0.01 K/uL Comprehensive Metabolic Panel Collection Time: 06/27/18 2:30 Result Value Ref Range Na 125 (L) 136 - 149 mmol/L K 3.6 3.5 - 5.1 mmol/L Cl 86 (L) 98 - 109 mmol/L CO2 24 24 - 31 mmol/L Anion Gap 15 3 - 16 mmol/L Glucose 98 70 - 109 mg/dL BUN 159 (HH) 7 - 18 mg/dL Creatinine 6.05 (H) 0.60 - 1.30 mg/dL eGFR if not 9 (L) >=60 mL/min/1.73m2 Ca 7.7 (L) 8.3 - 10.5 mg/dL Albumin 2.9 (L) 3.2 - 5.0 g/dL Bilirubin Total 2.2 (H) 0.1 - 1.5 mg/dL Total Protein 7.0 6.0 - 7.8 g/dL AST 92 (H) 10 - 42 U/L ALT 35 6 - 45 U/L Alkaline Phosphatase 191 (H) 40 - 110 U/L Globulin 4.1 (H) 2.1 - 3.8 g/dL Albumin/Globulin Ratio 0.7 (L) 0.8 - 2.0 BUN/Creatinine Ratio 26.3 Magnesium Collection Time: 06/27/18 2:30 Result Value Ref Range Magnesium 1.8 1.8 - 2.5 mg/dL Phosphorus Collection Time: 06/27/18 2:30 Result Value Ref Range Phosphorus 8.9 (HH) 2.5 - 4.6 mg/dL Protime INR Collection Time: 06/27/18 2:30 Result Value Ref Range Protime 14.1 (H) 11.3 - 13.9 seconds INR 1.1 0.9 - 1.1 PTT Collection Time: 06/27/18 2:30 Result Value Ref Range PTT 34 22 - 36 seconds Procalcitonin Collection Time: 06/27/18 2:30 Result Value Ref Range Procalcitonin 32.77 (HH) <=0.50 ng/mL Comment GGT Collection Time: 06/27/18 2:30 Result Value Ref Range GGT 80 (H) 7 - 50 U/L B Type Natriuretic Peptide Collection Time: 06/27/18 2:30 Result Value Ref Range BNP 410 (H) <100 pg/mL Lactic Acid Collection Time: 06/27/18 2:30 Result Value Ref Range Lactate 0.7 0.5 - 2.2 mmol/L POC Glucose Collection Time: 06/27/18 7:01 Result Value Ref Range Glucose, POC 87 70 - 109 mg/dL Micro results Microbiology Results (72 hrs) Procedure Component Value Units Date/Time Respiratory Virus Panel, NAAT [[id number]] Collected: 06/26/18 2359 Order Status: Sent Lab Status: In process Updated: 06/27/18 0002 Specimen: Tissue from Nasopharynx Respiratory pathogen panel, NAAT [[id number]] Collected: 06/26/18 2359 Order Status: Sent Lab Status: In process Updated: 06/27/18 0002 Specimen: Tissue from Nasopharynx Legionella, Ag, EIA, Qual, Urine [[id number]] Collected: 06/26/18 1501 Order Status: Sent Lab Status: In process Updated: 06/26/18 1527 Specimen: Urine from Urine, Indwelling Catheter Culture, Urine [[id number]] Collected: 06/26/18 1500 Order Status: Sent Lab Status: In process Updated: 06/26/18 1549 Specimen: Urine from Urine, Clean Catch Culture, MRSA [[id number]] Collected: 06/26/18 1312 Order Status: Sent Lab Status: In process Updated: 06/26/18 1333 Specimen: Tissue from Nares Culture, Blood [[id number]] (Normal) Collected: 06/26/18 1022 Order Status: Completed Lab Status: Preliminary result Updated: 12/03/18 2231 Specimen: Blood from Peripheral Blood Culture No growth: Monitored continually by instrument for 5 days Culture, Blood [[id number]] (Normal) Collected: 06/26/18923 Order Status: Completed Lab Status: Preliminary result Updated: 06/26/182140 Specimen: Blood from Line Culture No growth: Monitored continually by instrument for 5 days Radiology results Us Abdomen Complete Result Date: 06/26/2018 TECHNIQUE: Abdominal B-mode ultrasound with color and duplex doppler CLINICAL INFORMATION: Elevated LFTs and LORIE on CKD. COMPARISON: CT 12/12/2015. FINDINGS: LIVER: Size: Hepatomegaly measuring up to 21.9 cm. Echogenicity: Normal. Surface nodularity: None. Mass (size and loca tion): None. Portal Vein: Hepatopedal flow. BILE DUCTS: Intrahepatic ducts: Normal. Common bile duct diameter: 5 mm GALLBLADDER: Gallstones: No definite stones identified. Gallbladde r sludge: Heterogeneous sludge. Gallbladder wall thickening: The gallbladder is contracted a nd the wall measures up to 4 mm. Pericholecystic fluid: None. Sonographic Gruber sign: Absen t. PANCREAS: Pancreatic duct measures 3 mm in diameter, upper limits of normal. Imaged vale creas is without evidence of mass lesion. SPLEEN: Borderline splenomegaly measuring 12.2 cm. RIGHT KIDNEY: Hydronephrosis: None. Calcification: None. Mass: None. Size: 12.6 cm in long axis LEFT KIDNEY: Hydronephrosis: None. Calcification: None. Mass: None. Size: 12.1 cm in lo ng axis ABDOMINAL AORTA: Visualized portions are normal. ASCITES: Minimal IMPRESSION - Slud ge within the contracted gallbladder with expected mild wall thickening. No other findings to suggest acute cholecystitis. Mild hepatomegaly and borderline splenomegaly. Dictated and Signed by: Sheldon Gatica MD Electronically signed: 06/26/2018 3:41 PM Xr Chest Ap Portable Result Date: 06/26/2018 EXAM: XR CHEST AP PORTABLE dated 06/26/2018 4:27 PM HISTORY: Confirm placement position of P ICC Comparison: 06/26/2018 TECHNIQUE: A single portable view of the chest. FINDINGS: Interval placement of a right approach PICC line. On the final image obtained at 1615 hours the tip of the catheter is near the cavoatrial junction. There is persistent cardiomegaly and promi nence of pulmonary vasculature. Grossly unchanged positioning of atrial and ventricular lead s from an implanted device on the left chest. Asymmetric airspace disease in the right lowe r lung may be atelectasis or infiltrate. IMPRESSION - PICC catheter tip near the cavoatrial junction. Dictated and Signed by: Chet Cuevas MD Electronically signed: 06/26/2018 4:35 PM Xr Chest Ap Portable Result Date: 06/26/2018 CLINICAL INFORMATION: CHF, shortness of breath. COMPARISON: 12/12/2015. FINDINGS: Portable f rontal chest radiograph. Lungs: Mild prominence of the central pulmonary vasculature and int erstitial lung markings. Asymmetric opacities are noted at the right lung base. No pleural effusion or pneumothorax. Heart/mediastinum: Stable cardiomegaly. Left chest cardiac pacer device is stable. Median sternotomy changes. Bones: No acute osseous abnormality appreciat ed. IMPRESSION - Stable cardiomegaly with mild pulmonary edema. Focal airspace opacities at the right lung base may represent atelectasis, although, pneumonia is also a consideration. Dictated and Signed by: Sheldon Gatica MD Electronically signed: 06/26/2018 9:41 AM Vas Lower Extremity Venous Left Result Date: 06/26/2018 TECHNIQUE: Left lower extremity B-mode ultrasound with color and duplex Doppler. CLINICAL I NFORMATION: Leg swelling and pain. COMPARISON: None available. FINDINGS: Normal flow, compr essibility and augmentation of the visualized deep venous structures. IMPRESSION - No eviden ce of DVT. Notification: A preliminary report was relayed to the ordering provider by [facility] immediately following the exam. Dictated and Signed by: Sheldon hurley MD Electronically signed: 06/26/2018 11:27 AM Vitals Ranges: Temp: [35.7 C (96.2 F)-36.7 C (98.1 F)] 36.4 C (97.5 F) Pulse: [70-76] 72 Resp: [11-31] 21 BP: (75-140)/(32-96) 113/59 Vitals: Temp: 36.4 C (97.5 F) BP: 113/59 Pulse: 72 Resp: 21 SpO2: 97 % SpO2 97 % on high-flow nasal cannula, heated at flow rate 40L/min Subjective CC Breathing is worst. He has no knee pain at rest. Pain is there with movement and palpati on. He denied chest pain, n/v, fever/chill, and swelling. ROS See above Exam GA: NAD, AAOX3 HEENT: EOMI, MMM Neck: no JVD, no LDN Cardiac: rrr, no m/g/r, traceLE swelling Lung:diffuse expiratory wheezing, coarse lung sounds in the upper lung aldridge, mild increas ed respiratory effort Abdomen: obese, soft, nt/nd, nabs Skin: Large erythematous patch on the left knee with satellites erythematous macules and pa tches on the medial and lateral thigh. Mild warmth. Tenderness only over the patella. Mild e ffusion. ROM full with some pain on knee flexion. Pych: normal mood and affect Neuro: concrete smoother grossly intact, no focal weakness or sensory deficits Chava Werner DO 06/27/2018 7:18 [facility] Portions of this chart may have been created with [employer]ope voice recognition software. Occasi onal wrong-word or sound-alike substitutions may have occurred due to the inherent al itations of voice recognition software. Please read the chart carefully and recognize, using context, where these substitutions have occurred Al Hammonds, PharmD - 06/26/2018 1:29 PM PST VANCOMYCIN PER PHARMACY PROTOCOL: AMS/Drug Name - Vancomycin Patient: David Kerr Jr. [id number] Admit: 06/26/2018 6:37 RELEVANT ALLERGIES: n/a 72 yrs old male patient admitted on 06/26/2018 for progressive weakness with product cough and SOB x1 month. Patient is receiving vancomycin starting on 06/26/2018 for SSTI of knee. Gwendolyn key has a past medical history of Chest pain; Claustrophobia; Diabetes type 2, controlle d (HCC); Gout; Heart attack (HCC); Hypercholesteremia; Hypertension; and Pacemaker. HPI: About 3 weeks ago he apparently went to see his primary care provider at the [facility] and complained of generalized swelling and abdominal distention. He was diagnosed with decompensated heart failure and fluid overload and metolazone was added to his diuretic regimen. He was asked to take this 3 times a week. When he went back for a follow-up visi t on 19 June he had lost 42 pounds in fluid. He said he was feeling better at that t ky. Then about a week or two ago he started feeling progressively weaker and developed a c ough productive of yellowish sputum. He's also been feeling more short of breath than usual Antimicrobials - Current Antibiotic Dates of Therapy Vancomycin 06/26 Ceftriaxone / Azithromycin 06/26 Antimicrobials - Discontinued Antibiotic Dates of Therapy Micro/Cultures/Diagnostics: Microbiology Results (Last 14 Days by Collected Date with Culture/Sensitivity) Procedure Component Value Units Date/Time Culture, MRSA [[id number]] Collected: 06/26/18 1312 Order Status: Sent Lab Status: No result Specimen: Tissue from Nares Culture, Respiratory, Lower, Smear [[id number]] Order Status: Sent Lab Status: No result Specimen: Body Fluid from Sputum, Expectorated Respiratory Virus Panel, NAAT [[id number]] Order Status: Sent Lab Status: No result Specimen: Tissue from Nasopharynx Respiratory pathogen panel, NAAT [[id number]] Order Status: Sent Lab Status: No result Specimen: Tissue from Nasopharynx Culture, Blood [[id number]] Collected: 06/26/18 1022 Order Status: Sent Lab Status: In process Updated: 06/26/18 1026 Specimen: Blood from Peripheral Blood Culture, Blood [[id number]] Collected: 06/26/18 0924 Order Status: Sent Lab Status: In process Updated: 06/26/18 0932 Specimen: Blood from Line Relevant cultures from previous admits:N/A Admission Wt: Weight: 109.5 kg (241 lb 6.5 oz) Current Wt: Weight: 109.5 kg (241 lb 6.5 oz) Min/Max Temp past 24 hours:Temp Av.2 C (97.1 F) Min: 35.7 C (96.2 F) Max: 3 6.7 C (98 F) Estimated Creatinine Clearance: 11 mL/min (A) (based on SCr of 7.03 mg/dL (H)). Intake/Output Summary (Last 24 hours) at 06/26/18 1329 Last data filed at 06/26/18 1200 Gross per 24 hour Intake 1050 ml Output 0 ml Net 1050 ml Temp: [35.7 C (96.2 F)-36.7 C (98 F)] 35.7 C (96.2 F) Pulse: [70-73] 70 Resp: [12-27] 22 BP: (82-111)/(47-81) 84/47 Recent Labs Lab 06/26/18 1022 06/26/18 0724 06/26/18 0723 WBC -- -- 8.7 CREA -- -- 7.03* LACTATE 0.7 -- -- PROCALCITONI -- 51.92* -- Imagin/3: VAS LE - No evidence of DVT. 06/26: CXR - Stable cardiomegaly with mild pulmonary edema. Focal airspace opacities at the right lung base may represent atelectasis, although, pneumonia is also a consideration. Date 06/26 Time of Vancomycin draw -- Vancomycin result -- LEVEL or TROUGH -- Serum Creatinine 7.03 CrCl (mL/min) 11 Vanco load/bolus 1250 mg Vanco dose - current -- Vanco dose - new -- Assessment: Vancomycin Day # 1 Other antibiotics: rocephin and azithromycin Target Trough: 13-17 mcg/ml for bacteremia and SSTI of knee WBC: WNL; Renal: Acute on CKI; Temp: afebrile; Culture: blood - pending, resp - pending, MRSA - pending; VS: tachypneic Renal function: UOP: dialysis? Plan: 1. Vancomycin load of 1250 mg (~15 mg/kg) IVPB x 1 given on 06/26/2018; based off of AdjBw o f 83.5 kg 2. Will pulse dose; Await nephro consult 3. Vancomycin level/trough TBD 4. Serum creatinine DAILY for first 3 days, then at least every 3 days while on vancomycin. 5. Will monitor renal function, clinical status, infection [...] and Monitoring Protocol Electronically signed by: Al Hodges PharmD 06/26/2018 13:29 documented in this encounter Plan of Treatment +--------+ + + + + | Date | Type | Specialty | Care Team | Description | +--------+ + + + + | 07/16/ | Off-Site | Nephrology | Maty Tian | | | 2018 | Visit | | DO Rolan [address] [place] [address] | | | | | | [address] | | | | | | [place] | | | | | | [phone] | | | | | | | | +--------+ + + + + | 09/25/ | Office | Cardiology | Sheldon Spence | | | 2019 | Visit | | MD [address] | | | | | | [facility] [[email or web address]] | | | | | | [place] | | | | | | [phone] | | | | | | | [...] [place] | | | | | | [id number] | | | | | | | | +--------+ + + + + documented as of this encounter Procedures + +--------+ + + + | Procedure Name | Priori | Date/Time | Associated Diagnosis | Comments | | | ty | | | | + +--------+ + + + | POC GLUCOSE | Routin | 07/08/2018 | | Results for this | | | e | 11:58 AM | | procedure are in the | | | | PST | | results section. | + +--------+ + + + | RENAL FUNCTION PANEL | Routin | 07/08/2018 | | Results for this | | | e | 6:56 AM | | procedure are in the | | | | PST | | results section. | + +--------+ + + + | EXTRA LAVENDER TOP | Routin | 07/08/2018 | | Results for this | | TUBE | e | 6:43 AM | | procedure are in the | | | | PST | | results section. | + +--------+ + + + | POC GLUCOSE | Routin | 07/08/2018 | | Results for this | | | e | 5:16 AM | | procedure are in the | | | | PST | | results section. | + +--------+ + + + | POC GLUCOSE | Routin | 07/07/2018 | | Results for this | | | e | 9:53 PM | | procedure are in the | | | | PST | | results section. | + +--------+ + + + | POC GLUCOSE | Routin | 07/07/2018 | | Results for this | | | e | 4:11 PM | | procedure are in the | | | | PST | | results section. | + +--------+ + + + | HEPATITIS C AB | Routin | 07/07/2018 | | Results for this | | | e | 12:35 PM | | procedure are in the | | | | PST | | results section. | + +--------+ + + + | HEPATITIS B SURFACE | Routin | 07/07/2018 | | Results for this | | AB | e | 12:35 PM | | procedure are in the | | | | PST | | results section. | + +--------+ + + + | HEPATITIS B SURFACE | Routin | 07/07/2018 | | Results for this | | AG | e | 12:35 PM | | procedure are in the | | | | PST | | results section. | + +--------+ + + + | POC GLUCOSE | Routin | 07/07/2018 | | Results for this | | | e | 11:57 AM | | procedure are in the | | | | PST | | results section. | + +--------+ + + + | RENAL FUNCTION PANEL | Routin | 07/07/2018 | | Results for this | | | e | 6:24 AM | | procedure are in the | | | | PST | | results section. | + +--------+ + + + | POC GLUCOSE | Routin | 07/07/2018 | | Results for this | | | e | 6:23 AM | | procedure are in the | | | | PST | | results section. | + +--------+ + + + | POC GLUCOSE | Routin | 07/06/2018 | | Results for this | | | e | 8:30 PM | | procedure are in the | | | | PST | | results section. | + +--------+ + + + | POC GLUCOSE | Routin | 07/06/2018 | | Results for this | | | e | 5:41 PM | | procedure are in the | | | | PST | | results section. | + +--------+ + + + | POC GLUCOSE | Routin | 07/06/2018 | | Results for this | | | e | 11:49 AM | | procedure are in the | | | | PST | | results section. | + +--------+ + + + | EXTRA LAVENDER TOP | Routin | 07/06/2018 | | Results for this | | TUBE | e | 6:25 AM | | procedure are in the | | | | PST | | results section. | + +--------+ + + + | RENAL FUNCTION PANEL | Routin | 07/06/2018 | | Results for this | | | e | 6:25 AM | | procedure are in the | | | | PST | | results section. | + +--------+ + + + | POC GLUCOSE | Routin | 07/06/2018 | | Results for this | | | e | 6:15 AM | | procedure are in the | | | | PST | | results section. | + +--------+ + + + | POC GLUCOSE | Routin | 07/05/2018 | | Results for this | | | e | 9:09 PM | | procedure are in the | | | | PST | | results section. | + +--------+ + + + | POC GLUCOSE | Routin | 07/05/2018 | | Results for this | | | e | 5:14 PM | | procedure are in the | | | | PST | | results section. | + +--------+ + + + | POC GLUCOSE | Routin | 07/05/2018 | | Results for this | | | e | 11:41 AM | | procedure are in the | | | | PST | | results section. | + +--------+ + + + | CBC WITH | Routin | 07/05/2018 | | Results for this | | DIFFERENTIAL | e | 6:11 AM | | procedure are in the | | | | PST | | results section. | + +--------+ + + + | RENAL FUNCTION PANEL | Routin | 07/05/2018 | | Results for this | | | e | 6:11 AM | | procedure are in the | | | | PST | | results section. | + +--------+ + + + | POC GLUCOSE | Routin | 07/04/2018 | | Results for this | | | e | 9:50 PM | | procedure are in the | | | | PST | | results section. | + +--------+ + + + | POC GLUCOSE | Routin | 07/04/2018 | | Results for this | | | e | 4:02 PM | | procedure are in the | | | | PST | | results section. | + +--------+ + + + | POC GLUCOSE | Routin | 07/04/2018 | | Results for this | | | e | 11:32 AM | | procedure are in the | | | | PST | | results section. | + +--------+ + + + | POC GLUCOSE | Routin | 07/04/2018 | | Results for this | | | e | 6:41 AM | | procedure are in the | | | | PST | | results section. | + +--------+ + + + | RENAL FUNCTION PANEL | Routin | 07/04/2018 | | Results for this | | | e | 4:46 AM | | procedure are in the | | | | PST | | results section. | + +--------+ + + + | POC GLUCOSE | Routin | 07/03/2018 | | Results for this | | | e | 9:36 PM | | procedure are in the | | | | PST | | results section. | + +--------+ + + + | POC GLUCOSE | Routin | 07/03/2018 | | Results for this | | | e | 5:13 PM | | procedure are in the | | | | PST | | results section. | + +--------+ + + + | XR CHEST 1 VIEW | Routin | 07/03/2018 | | Results for this | | | e | 4:55 PM | | procedure are in the | | | | PST | | results section. | + +--------+ + + + | FL CENTRAL VENOUS | Routin | 07/03/2018 | | Results for this | | ACCESS DEVICE | e | 4:25 PM | | procedure are in the | | PLACEMENT | | PST | | results section. | + +--------+ + + + | POC GLUCOSE | Routin | 07/03/2018 | | Results for this | | | e | 4:23 PM | | procedure are in the | | | | PST | | results section. | + +--------+ + + + | INSERTION SHUNT | | 07/03/2018 | Acute renal | | | HEMODIALYSIS W/ | | 3:04 PM | failure with acute | | | PERMACATH | | PST | tubular necrosis | | | | | | superimposed on | | | | | | chronic kidney | | | | | | disease, unspecified | | | | | | CKD stage (HCC) | | + +--------+ + + + | POC GLUCOSE | Routin | 07/03/2018 | | Results for this | | | e | 12:34 PM | | procedure are in the | | | | PST | | results section. | + +--------+ + + + | POC GLUCOSE | Routin | 07/03/2018 | | Results for this | | | e | 6:33 AM | | procedure are in the | | | | PST | | results section. | + +--------+ + + + | RENAL FUNCTION PANEL | Routin | 07/03/2018 | | Results for this | | | e | 4:16 AM | | procedure are in the | | | | PST | | results section. | + +--------+ + + + | RESPIRATORY THERAPY | Routin | 07/03/2018 | | | | COMMUNICATION | e | 2:14 AM | | | | | | PST | | | + +--------+ + + + | POC GLUCOSE | Routin | 07/02/2018 | | Results for this | | | e | 8:55 PM | | procedure are in the | | | | PST | | results section. | + +--------+ + + + | POC GLUCOSE | Routin | 07/02/2018 | | Results for this | | | e | 4:34 PM | | procedure are in the | | | | PST | | results section. | + +--------+ + + + | POC GLUCOSE | Routin | 07/02/2018 | | Results for this | | | e | 12:27 PM | | procedure are in the | | | | PST | | results section. | + +--------+ + + + | POC GLUCOSE | Routin | 07/02/2018 | | Results for this | | | e | 6:49 AM | | procedure are in the | | | | PST | | results section. | + +--------+ + + + | COMPREHENSIVE | Routin | 07/02/2018 | | Results for this | | METABOLIC PANEL | e | 3:28 AM | | procedure are in the | | | | PST | | results section. | + +--------+ + + + | POC GLUCOSE | Routin | 07/01/2018 | | Results for this | | | e | 9:24 PM | | procedure are in the | | | | PST | | results section. | + +--------+ + + + | POC GLUCOSE | Routin | 07/01/2018 | | Results for this | | | e | 4:23 PM | | procedure are in the | | | | PST | | results section. | + +--------+ + + + | POC GLUCOSE | Routin | 07/01/2018 | | Results for this | | | e | 11:21 AM | | procedure are in the | | | | PST | | results section. | + +--------+ + + + | POC GLUCOSE | Routin | 07/01/2018 | | Results for this | | | e | 6:16 AM | | procedure are in the | | | | PST | | results section. | + +--------+ + + + | CBC WITH | Routin | 07/01/2018 | | Results for this | | DIFFERENTIAL | e | 3:32 AM | | procedure are in the | | | | PST | | results section. | + +--------+ + + + | RENAL FUNCTION PANEL | Routin | 07/01/2018 | | Results for this | | | e | 3:32 AM | | procedure are in the | | | | PST | | results section. | + +--------+ + + + | POC GLUCOSE | Routin | 06/30/2018 | | Results for this | | | e | 8:50 PM | | procedure are in the | | | | PST | | results section. | + +--------+ + + + | AMMONIA | Routin | 06/30/2018 | | Results for this | | | e | 6:14 PM | | procedure are in the | | | | PST | | results section. | + +--------+ + + + | BLOOD GAS, ARTERIAL | Routin | 06/30/2018 | | Results for this | | | e | 5:56 PM | | procedure are in the | | | | PST | | results section. | + +--------+ + + + | POC GLUCOSE | Routin | 06/30/2018 | | Results for this | | | e | 4:56 PM | | procedure are in the | | | | PST | | results section. | + +--------+ + + + | POC GLUCOSE | Routin | 06/30/2018 | | Results for this | | | e | 1:38 PM | | procedure are in the | | | | PST | | results section. | + +--------+ + + + | POC GLUCOSE | Routin | 06/30/2018 | | Results for this | | | e | 8:31 AM | | procedure are in the | | | | PST | | results section. | + +--------+ + + + | POC GLUCOSE | Routin | 06/30/2018 | | Results for this | | | e | 7:10 AM | | procedure are in the | | | | PST | | results section. | + +--------+ + + + | CBC NO DIFFERENTIAL | Routin | 06/30/2018 | | Results for this | | | e | 4:02 AM | | procedure are in the | | | | PST | | results section. | + +--------+ + + + | RENAL FUNCTION PANEL | Routin | 06/30/2018 | | Results for this | | | e | 4:02 AM | | procedure are in the | | | | PST | | results section. | + +--------+ + + + | POC GLUCOSE | Routin | 06/29/2018 | | Results for this | | | e | 8:18 PM | | procedure are in the | | | | PST | | results section. | + +--------+ + + + | POC GLUCOSE | Routin | 06/29/2018 | | Results for this | | | e | 5:54 PM | | procedure are in the | | | | PST | | results section. | + +--------+ + + + | POC GLUCOSE | Routin | 06/29/2018 | | Results for this | | | e | 11:50 AM | | procedure are in the | | | | PST | | results section. | + +--------+ + + + | POC GLUCOSE | Routin | 06/29/2018 | | Results for this | | | e | 6:41 AM | | procedure are in the | | | | PST | | results section. | + +--------+ + + + | CBC NO DIFFERENTIAL | Routin | 06/29/2018 | | Results for this | | | e | 3:21 AM | | procedure are in the | | | | PST | | results section. | + +--------+ + + + | RENAL FUNCTION PANEL | Routin | 06/29/2018 | | Results for this | | | e | 3:21 AM | | procedure are in the | | | | PST | | results section. | + +--------+ + + + | POC GLUCOSE | Routin | 06/28/2018 | | Results for this | | | e | 9:10 PM | | procedure are in the | | | | PST | | results section. | + +--------+ + + + | POC GLUCOSE | Routin | 06/28/2018 | | Results for this | | | e | 5:17 PM | | procedure are in the | | | | PST | | results section. | + +--------+ + + + | CT HEAD WO CONTRAST | Routin | 06/28/2018 | | Results for this | | | e | 2:59 PM | | procedure are in the | | | | PST | | results section. | + +--------+ + + + | POC GLUCOSE | Routin | 06/28/2018 | | Results for this | | | e | 11:26 AM | | procedure are in the | | | | PST | | results section. | + +--------+ + + + | POC GLUCOSE | Routin | 06/28/2018 | | Results for this | | | e | 6:58 AM | | procedure are in the | | | | PST | | results section. | + +--------+ + + + | EXTRA BLUE TOP TUBE | Routin | 06/28/2018 | | Results for this | | | e | 3:57 AM | | procedure are in the | | | | PST | | results section. | + +--------+ + + + | CBC WITH | Routin | 06/28/2018 | | Results for this | | DIFFERENTIAL | e | 3:57 AM | | procedure are in the | | | | PST | | results section. | + +--------+ + + + | PHOSPHORUS | Routin | 06/28/2018 | | Results for this | | | e | 3:57 AM | | procedure are in the | | | | PST | | results section. | + +--------+ + + + | COMPREHENSIVE | Routin | 06/28/2018 | | Results for this | | METABOLIC PANEL | e | 3:57 AM | | procedure are in the | | | | PST | | results section. | + +--------+ + + + | POC GLUCOSE | Routin | 06/27/2018 | | Results for this | | | e | 9:15 PM | | procedure are in the | | | | PST | | results section. | + +--------+ + + + | POC GLUCOSE | Routin | 06/27/2018 | | Results for this | | | e | 4:34 PM | | procedure are in the | | | | PST | | results section. | + +--------+ + + + | VANCOMYCIN LEVEL | Timed | 06/27/2018 | | Results for this | | | | 4:34 PM | | procedure are in the | | | | PST | | results section. | + +--------+ + + + | BASIC METABOLIC | Routin | 06/27/2018 | | Results for this | | PANEL | e | 4:34 PM | | procedure are in the | | | | PST | | results section. | + +--------+ + + + | POC GLUCOSE | Routin | 06/27/2018 | | Results for this | | | e | 11:32 AM | | procedure are in the | | | | PST | | results section. | + +--------+ + + + | BLOOD GAS, ARTERIAL | Routin | 06/27/2018 | | Results for this | | | e | 10:38 AM | | procedure are in the | | | | PST | | results section. | + +--------+ + + + | CULTURE, | Routin | 06/27/2018 | | Results for this | | RESPIRATORY, LOWER, | e | 9:38 AM | | procedure are in the | | SMEAR | | PST | | results section. | + +--------+ + + + | RESPIRATORY THERAPY | Routin | 06/27/2018 | | | | COMMUNICATION | e | 8:12 AM | | | | | | PST | | | + +--------+ + + + | POC GLUCOSE | Routin | 06/27/2018 | | Results for this | | | e | 7:01 AM | | procedure are in the | | | | PST | | results section. | + +--------+ + + + | XR CHEST AP PORTABLE | STAT | 06/27/2018 | | Results for this | | | | 2:58 AM | | procedure are in the | | | | PST | | results section. | + +--------+ + + + | PROCALCITONIN, SERUM | Routin | 06/27/2018 | | Results for this | | | e | 2:30 AM | | procedure are in the | | | | PST | | results section. | + +--------+ + + + | MYCOPLASMA AB, IGG | Routin | 06/27/2018 | | Results for this | | AND IGM | e | 2:30 AM | | procedure are in the | | | | PST | | results section. | + +--------+ + + + | PTT | Routin | 06/27/2018 | | Results for this | | | e | 2:30 AM | | procedure are in the | | | | PST | | results section. | + +--------+ + + + | PROTIME INR | Routin | 06/27/2018 | | Results for this | | | e | 2:30 AM | | procedure are in the | | | | PST | | results section. | + +--------+ + + + | CBC WITH | Routin | 06/27/2018 | | Results for this | | DIFFERENTIAL | e | 2:30 AM | | procedure are in the | | | | PST | | results section. | + +--------+ + + + | PHOSPHORUS | Routin | 06/27/2018 | | Results for this | | | e | 2:30 AM | | procedure are in the | | | | PST | | results section. | + +--------+ + + + | B TYPE NATRIURETIC | Routin | 06/27/2018 | | Results for this | | PEPTIDE | e | 2:30 AM | | procedure are in the | | | | PST | | results section. | + +--------+ + + + | MAGNESIUM | Routin | 06/27/2018 | | Results for this | | | e | 2:30 AM | | procedure are in the | | | | PST | | results section. | + +--------+ + + + | LACTIC ACID | Routin | 06/27/2018 | | Results for this | | | e | 2:30 AM | | procedure are in the | | | | PST | | results section. | + +--------+ + + + | GGT | Routin | 06/27/2018 | | Results for this | | | e | 2:30 AM | | procedure are in the | | | | PST | | results section. | + +--------+ + + + | COMPREHENSIVE | Routin | 06/27/2018 | | Results for this | | METABOLIC PANEL | e | 2:30 AM | | procedure are in the | | | | PST | | results section. | + +--------+ + + + | RESPIRATORY VIRUS | STAT | 06/26/2018 | | Results for this | | PANEL, NAAT | | 11:59 PM | | procedure are in the | | | | PST | | results section. | + +--------+ + + + | RESPIRATORY VIRUS | STAT | 06/26/2018 | | Results for this | | ANTIGENS PROFILE | | 11:59 PM | | procedure are in the | | | | PST | | results section. | + +--------+ + + + | POC GLUCOSE | Routin | 06/26/2018 | | Results for this | | | e | 8:25 PM | | procedure are in the | | | | PST | | results section. | + +--------+ + + + | CK TOTAL | Routin | 06/26/2018 | | Results for this | | | e | 5:50 PM | | procedure are in the | | | | PST | | results section. | + +--------+ + + + | BASIC METABOLIC | Routin | 06/26/2018 | | Results for this | | PANEL | e | 5:50 PM | | procedure are in the | | | | PST | | results section. | + +--------+ + + + | POC GLUCOSE | Routin | 06/26/2018 | | Results for this | | | e | 5:13 PM | | procedure are in the | | | | PST | | results section. | + +--------+ + + + | XR CHEST AP PORTABLE | Routin | 06/26/2018 | Pneumonia due to | Results for this | | | e | 4:27 PM | infectious organism, | procedure are in the | | | | PST | unspecified | results section. | | | | | laterality, | | | | | | unspecified part of | | | | | | lung | | + +--------+ + + + | LEGIONELLA AG, EIA, | Routin | 06/26/2018 | | Results for this | | QUAL, URINE | e | 3:01 PM | | procedure are in the | | | | PST | | results section. | + +--------+ + + + | STREPTOCOCCUS | Routin | 06/26/2018 | | Results for this | | PNEUMONIAE AG, URINE | e | 3:00 PM | | procedure are in the | | | | PST | | results section. | + +--------+ + + + | URINALYSIS WITH | STAT | 06/26/2018 | | Results for this | | MICROSCOPIC WITH | | 3:00 PM | | procedure are in the | | CULTURE IF INDICATED | | PST | | results section. | + +--------+ + + + | CULTURE, URINE | STAT | 06/26/2018 | | Results for this | | | | 3:00 PM | | procedure are in the | | | | PST | | results section. | + +--------+ + + + | US ABDOMEN COMPLETE | LILY | 06/26/2018 | | Results for this | | | | 2:50 PM | | procedure are in the | | | | PST | | results section. | + +--------+ + + + | POC GLUCOSE | Routin | 06/26/2018 | | Results for this | | | e | 1:21 PM | | procedure are in the | | | | PST | | results section. | + +--------+ + + + | CULTURE, MRSA | Routin | 06/26/2018 | | Results for this | | | e | 1:12 PM | | procedure are in the | | | | PST | | results section. | + +--------+ + + + | EXTRA LAVENDER TOP | Routin | 06/26/2018 | | Results for this | | TUBE | e | 11:54 AM | | procedure are in the | | | | PST | | results section. | + +--------+ + + + | POC GLUCOSE | Routin | 06/26/2018 | | Results for this | | | e | 11:43 AM | | procedure are in the | | | | PST | | results section. | + +--------+ + + + | EXTRA LAVENDER TOP | Routin | 06/26/2018 | | Results for this | | TUBE | e | 10:22 AM | | procedure are in the | | | | PST | | results section. | + +--------+ + + + | EXTRA GREEN TOP TUBE | Routin | 06/26/2018 | | Results for this | | | e | 10:22 AM | | procedure are in the | | | | PST | | results section. | + +--------+ + + + | TROPONIN I | Routin | 06/26/2018 | | Results for this | | | e | 10:22 AM | | procedure are in the | | | | PST | | results section. | + +--------+ + + + | CULTURE, BLOOD | STAT | 06/26/2018 | | Results for this | | | | 10:22 AM | | procedure are in the | | | | PST | | results section. | + +--------+ + + + | PARATHYROID HORMONE, | Routin | 06/26/2018 | | Results for this | | INTACT | e | 10:22 AM | | procedure are in the | | | | PST | | results section. | + +--------+ + + + | LACTIC ACID | STAT | 06/26/2018 | | Results for this | | | | 10:22 AM | | procedure are in the | | | | PST | | results section. | + +--------+ + + + | HEMOGLOBIN A1C | Routin | 06/26/2018 | | Results for this | | | e | 10:22 AM | | procedure are in the | | | | PST | | results section. | + +--------+ + + + | HEPATIC FUNCTION | Add-On | 06/26/2018 | | Results for this | | PANEL | | 10:22 AM | | procedure are in the | | | | PST | | results section. | + +--------+ + + + | VAS LOWER EXTREMITY | STAT | 06/26/2018 | | Results for this | | VENOUS LEFT | | 9:41 AM | | procedure are in the | | | | PST | | results section. | + +--------+ + + + | CULTURE, BLOOD | STAT | 06/26/2018 | | Results for this | | | | 9:24 AM | | procedure are in the | | | | PST | | results section. | + +--------+ + + + | XR CHEST AP PORTABLE | STAT | 06/26/2018 | | Results for this | | | | 7:33 AM | | procedure are in the | | | | PST | | results section. | + +--------+ + + + | PROCALCITONIN, SERUM | STAT | 06/26/2018 | | Results for this | | | | 7:24 AM | | procedure are in the | | | | PST | | results section. | + +--------+ + + + | EXTRA GREEN TOP TUBE | STAT | 06/26/2018 | | Results for this | | | | 7:24 AM | | procedure are in the | | | | PST | | results section. | + +--------+ + + + | EXTRA BLUE TOP TUBE | STAT | 06/26/2018 | | Results for this | | | | 7:24 AM | | procedure are in the | | | | PST | | results section. | + +--------+ + + + | PTT | LILY | 06/26/2018 | | Results for this | | | | 7:24 AM | | procedure are in the | | | | PST | | results section. | + +--------+ + + + | PROTIME INR | LILY | 06/26/2018 | | Results for this | | | | 7:24 AM | | procedure are in the | | | | PST | | results section. | + +--------+ + + + | URIC ACID | Routin | 06/26/2018 | | Results for this | | | e | 7:24 AM | | procedure are in the | | | | PST | | results section. | + +--------+ + + + | PHOSPHORUS | Add-On | 06/26/2018 | | Results for this | | | | 7:24 AM | | procedure are in the | | | | PST | | results section. | + +--------+ + + + | MAGNESIUM | Add-On | 06/26/2018 | | Results for this | | | | 7:24 AM | | procedure are in the | | | | PST | | results section. | + +--------+ + + + | CBC WITH | STAT | 06/26/2018 | | Results for this | | DIFFERENTIAL | | 7:23 AM | | procedure are in the | | | | PST | | results section. | + +--------+ + + + | B TYPE NATRIURETIC | STAT | 06/26/2018 | | Results for this | | PEPTIDE | | 7:23 AM | | procedure are in the | | | | PST | | results section. | + +--------+ + + + | BASIC METABOLIC | STAT | 06/26/2018 | | Results for this | | PANEL | | 7:23 AM | | procedure are in the | | | | PST | | results section. | + +--------+ + + + | LABS - EXTERNAL SCAN | | 06/19/2018 | | Results for this | | | | 12:00 AM | | procedure are in the | | | | PST | | results section. | + +--------+ + + + documented in this encounter Results POC Glucose (07/08/2018 11:58 AM PST) + +---------+ + + + | Component | Value | Ref Range | Performed | Pathologist | | | | | At | Signature | + +---------+ + + + | Glucose, | 195 (H) | 70 - 109 mg/dL | [...] + | [facility] | [address] | [place] | [phone] | | [facility] | | [address] | | | - LABORATORY | | | | + + + + + Renal Function Panel (07/08/2018 6:56 AM PST) + + + + + + | Component | Value | Ref Range | Performed | Pathologist | | | | | At | Signature | + + + + + + | Na | 136 | 136 - 149 | [facility] | | | | | mmol/L | [facility] | | | | | | [facility] | | | [facility] | | [facility] - | | | | | | LABORATORY | | + + + + + + | K | 4.8 | 3.5 - 5.1 | [facility] | | | | | mmol/L | [facility] | | | | | | [facility] | | | | | | CENTER - | | | | | | LABORATORY | | + + + + + + | Cl | 102 | 98 - 109 mmol/L | [facility] | | | | | | [facility] | | | | | | [facility] | | | | | | CENTER - | | | | | | LABORATORY | | + + + + + + | CO2 | 27 | 24 - 31 mmol/L | [facility] [...] + + + + | Glucose | 123 (H) | 70 - 109 mg/dL | [facility] | | | | [facility] | [facility] | [facility] | | | | | | [facility] - | | | | | | LABORATORY | | + + + + + + | BUN | 52 (H) | 7 - 18 mg/dL | [facility] | | | | | [facility] | [facility] | | | | | | [facility] - | | | | | | LABORATORY | | + + + + + + | Creatinine | 1.99 (H) | 0.60 - 1.30 | [facility] | | | | | mg/dL | [facility] | | | | | | [facility] | | | | | | CENTER - | | | | | | LABORATORY | | + + + + + + | eGFR if not | 33 (L) | >=60 | [facility] | | | | | mL/min/1.73m2 | [facility] | | | [place] | | | MEDICAL | | | [...] + + + + | Albumin | 2.7 (L) | 3.2 - 5.0 g/dL | [facility] | | | | | [facility] | | | | | | [facility] | | | | | | CENTER - | | | | | | LABORATORY | | + + + + + + | Phosphorus | 3.9 | 2.5 - 4.6 mg/dL | [facility] | | | | | | [facility] | | | | | | [facility] | | | | | | CENTER - | | | | | | LABORATORY | | + + + + + + | BUN/Creatin | 26.1 | | [facility] | | | ine [...] [facility]. | [address] | [place] | [phone] | | [facility] | | [address] | | | - LABORATORY | | | | + + + + + Extra Lavender Top Tube (07/08/2018 6:43 AM PST) + +-------+ + + + [...] [address] | [place] | [phone] | | [facility] | | [address] | | | - LABORATORY | | | | + + + + + POC Glucose (07/08/2018 5:16 AM PST) + +---------+ + + + | Component | Value | Ref Range | Performed | Pathologist | | | | | At | Signature | + +---------+ + + + | Glucose, | 118 (H) | 70 - 109 mg/dL | [...] + | [facility] | [address] | [place] | [phone] | | [facility] | | [address] | | | - LABORATORY | | | | + + + + + POC Glucose (07/07/2018 9:53 PM PST) + +---------+ + + + | Component | Value | Ref Range | Performed | Pathologist | | | | | At | Signature | + +---------+ + + + | Glucose, | 152 (H) | 70 - 109 mg/dL | [...] [address] | [place] | [phone] | | [facility] | | [address] | | | - LABORATORY | | | | + + + + + POC Glucose (07/07/2018 4:11 PM PST) + +---------+ + + + | Component | Value | Ref Range | Performed | Pathologist | | | | | At | Signature | + +---------+ + + + | Glucose, | 180 (H) | 70 - 109 mg/dL | [...] [address] | [place] | [phone] | | [facility] | | [address] | | | - LABORATORY | | | | + + + + + Hepatitis C Ab (07/07/2018 12:35 PM PST) + + + + + + | Component | Value | Ref Range | Performed | Pathologist | | | | | At | Signature | + + + + + + | Hepatitis C | 0.3Comment: | 0.0 - 0.9 s/co | [facility] | | | Ab | | ratio | LAB [facility] | | | | Negative: | | - [facility] | | | | < 0.8 | | | | | | | | | | | | Indeterminate: | | | | | | 0.8 - 0.9 | | | | | | | | | | | | Positive: | | | | | | > 0.9 The CDC | | | | | | recommends that a | | | | | | positive HCV antibody | | | | | | result be followed up | | | | | | with a HCV Nucleic Acid | | | | | | Amplification test | | | | | | ([id number]). | | | | + + + + + + + + | Specimen | + + | Blood | + + + + + | Narrative | Performed At | + + + | Performed at: 01 - [facility] [address], | REFERENCE LAB | | [place], [place] [id number] [employer] Supervisor: Salazar Ocampo MD, Phone: | [facility] | | [phone] | | + + + + + + + + | Performing | Address | City/State/Zipcode | Phone Number | | Organization | | | | + + + + + | REFERENCE LAB | [address] | [place] [address] | [phone] | | [facility] | [address] | | | + + + + + Hepatitis B Surface Ag (07/07/2018 12:35 PM PST) + + + + + + | Component | Value | Ref Range | Performed | Pathologist | | | | | At | Signature | + + + + + + | Hepatitis B | Negative | Negative | [facility] | | | Surface Ag | | | LAB [facility] | | | | | | - [facility] | | + + + + + + + + | Specimen | + + | Blood | + + + + + | Narrative | Performed At | + + + | Performed at: 01 - [facility] [address], | REFERENCE LAB | | [place], [place] [id number] [employer] Supervisor: Salazar Ocampo MD, Phone: | [facility] | | [phone] | | + + + + + + + + | Performing | Address | City/State/Zipcode | Phone Number | | Organization | | | | + + + + + | REFERENCE LAB | [address] | [place] [address] | [phone] | | [facility] | [address] | | | + + + + + Hepatitis B Surface Ab (07/07/2018 12:35 PM PST) + + + + + + | Component | Value | Ref Range | Performed | Pathologist | | | | | At | Signature | + + + + + + | Hepatitis B | Non ReactiveComment: | | REFERENCE | | | Surface | Non | | LAB [facility] | | | Antibody | Reactive: Inconsistent | | - [facility] | | | Qual | with immunity, | | | | | | | | | | | | less than 10 | | | | | | mIU/mL | | | | | | Reactive: | | | | | | Consistent with | | | | | | immunity, | | | | | | | | | | | | greater than 9.9 | | | | | | mIU/mL | | | | + + + + + + + + | Specimen | + + | Blood | + + + + + | Narrative | Performed At | + + + | Performed at: 01 - [facility] [place] [address], | REFERENCE LAB | | [place], [place] [id number] [employer] Supervisor: Salazar Ocampo MD, Phone: | [facility] | | [phone] | | + + + + + + + + | Performing | Address | City/State/Zipcode | Phone Number | | Organization | | | | + + + + + | REFERENCE LAB | [address] | [place] [address] | [phone] | | [facility] | [address] | | | + + + + + POC Glucose (07/07/2018 11:57 AM PST) + +---------+ + + + | Component | Value | Ref Range | Performed | Pathologist | | | | | At | Signature | + +---------+ + + + | Glucose, | 186 (H) | 70 - 109 mg/dL | [...] ST. | [address] | [place] | [phone] | | [facility] | | [address] | | | - LABORATORY | | | | + + + + + Renal Function Panel (07/07/2018 6:24 AM PST) + + + + + + | Component | Value | Ref Range | Performed | Pathologist | | | | | At | Signature | + + + + + + | Na | 134 (L) | 136 - 149 | [facility] | | | | | mmol/L | [facility] | | | | | | MEDICAL | | | | | | CENTER - | | | | | | LABORATORY | | + + + + + + | K | 4.7 | 3.5 - 5.1 | [facility] | | | | | mmol/L | [facility] | | | | | | MEDICAL | | | | | | CENTER - | | | | | | LABORATORY | | + + + + + + | Cl | 103 | 98 - 109 mmol/L | [facility] | | | | | | [facility] | | | | | | MEDICAL | | | | | | CENTER - | | | | | | LABORATORY | | + + + + + + | CO2 | 24 | 24 - 31 mmol/L | [facility] [...] + | Glucose | 137 (H) | 70 - 109 mg/dL | [facility] | | | | | [facility] | | [facility] | | | [facility]ICAL | | | | | | CENTER - | | | | | | LABORATORY | | + + + + + + | BUN | 72 (H) | 7 - 18 mg/dL | [facility] | | | | | | [facility] | | | | | | MEDICAL | | | | | | CENTER - | | | | | | LABORATORY | | + + + + + + | Creatinine | 2.73 (H) | 0.60 - 1.30 | [facility] | | | | | mg/dL | [facility] | | | | | | MEDICAL | | | | | | CENTER - | | | | | | LABORATORY | | + + + + + + | eGFR if not | 23 (L) | >=60 | [facility] | | | | | mL/min/1.73m2 | [facility] | | | [place] | | | MEDICAL | | | | | | CENTER - | | | | | | LABORATORY | | + + + + + + | Calcium | 8.6 | 8.3 - 10.5 | [facility] | | | | | mg/dL | [facility] | | | | | | MEDICAL | | | | | | CENTER - | | | | | | LABORATORY | | + + + + + + | Albumin | 2.6 (L) | 3.2 - 5.0 g/dL | [facility] | | | | | | [facility] | | | | | | MEDICAL | | | | | | CENTER - | | | | | | LABORATORY | | + + + + + + | Phosphorus | 4.4 | 2.5 - 4.6 mg/dL | [facility] | | | | | | [facility] | | | | | | MEDICAL | | | | | | CENTER - | | | | | | LABORATORY | | + + + + + + | BUN/Creatin | 26.4 | | [facility] | | | ine Ratio | | | [facility] | | [...] [address] | [place] | [phone] | | [facility] | | [address] | | | - LABORATORY | | | | + + + + + POC Glucose (07/07/2018 6:23 AM PST) + +---------+ + + + | Component | Value | Ref Range | Performed | Pathologist | | | | | At | Signature | + +---------+ + + + | Glucose, | 123 (H) | 70 - 109 mg/dL | [...] + | [facility] | [address] | [place] | [phone] | | [facility] | | [address] | | | - LABORATORY | | | | + + + + + POC Glucose (07/06/2018 8:30 PM PST) + +---------+ + + + | [...] [address] | [place] | [phone] | | [facility] | | [address] | | | - LABORATORY | | | | + + + + + POC Glucose (07/06/2018 5:41 PM PST) + +---------+ + + + | [...] [address] | [place] | [phone] | | [facility] | | [address] | | | - LABORATORY | | | | + + + + + POC Glucose (07/06/2018 11:49 AM PST) + +---------+ + + + [...] [address] | [place] | [phone] | | [facility] | | [address] | | | - LABORATORY | | | | + + + + + Extra Lavender Top Tube (07/06/2018 6:25 AM PST) + +-------+ + + + [...] [address] | [place] | [phone] | | [facility] | | [address] | | | - LABORATORY | | | | + + + + + Renal Function Panel (07/06/2018 6:25 AM PST) + + + + + [...] + + + + | K | 4.3 | 3.5 - 5.1 | [facility] | | | | | mmol/L | [facility] | | | | | | MEDICAL | | | | | | CENTER - | | | | | | LABORATORY | | + + + + + + | Cl | 104 | 98 - 109 mmol/L | [facility] | | | | | | [facility] | | | | | | MEDICAL | | | | | | CENTER - | | | | | | LABORATORY | | + + + + + + | CO2 | 24 | 24 - 31 mmol/L | [facility] [...] + + + + | Glucose | 143 (H) | 70 - 109 mg/dL | [facility] | | | | | | [facility] | | | | | | MEDICAL | | | | | | CENTER - | | | | | | LABORATORY | | + + + + + + | BUN | 61 (H) | 7 - 18 mg/dL | [facility] | | | | | | [facility] | | | | | | MEDICAL | | | | | | CENTER - | | | | | | LABORATORY | | + + + + + + | Creatinine | 2.68 (H) | 0.60 - 1.30 | [facility] | | | | | mg/dL | [facility] | | | | | | MEDICAL | | | | | | CENTER - | | | | | | LABORATORY | | + + + + + + | eGFR if not | 24 (L) | >=60 | [facility] | | | | | mL/min/1.73m2 | [facility] | | | [place] | | | MEDICAL | | | | | | CENTER - | | | | | | LABORATORY | | + + + + + + | Calcium | 8.7 | 8.3 - 10.5 | [facility] | | | | | mg/dL | [facility] | | | | | | MEDICAL | | | | | | CENTER - | | | | | | LABORATORY | | + + + + + + | Albumin | 2.6 (L) | 3.2 - 5.0 g/dL | [facility] | | | | | | [facility] | | | [facility] | | MEDICAL | | | | | | CENTER - | | | | | | LABORATORY | | + + + + + + | Phosphorus | 3.5 | 2.5 - 4.6 mg/dL | [facility] | | | | | | [facility] | | | [facility] | | MEDICAL | | | | | | CENTER - | | | | | | LABORATORY | | + + + + + + | BUN/Creatin | 22.8 | | [facility] | | | ine [...] ST. | [address] | [place] | [phone] | | [facility] | | [address] | | | - LABORATORY | | | | + + + + + POC Glucose (07/06/2018 6:15 AM PST) + +---------+ + + + | Component | Value | Ref Range | Performed | Pathologist | | | | | At | Signature | + +---------+ + + + | Glucose, | 142 (H) | 70 - 109 mg/dL | [...] + | [facility] | [address] | [place] | [phone] | | [facility] | | [address] | | | - LABORATORY | | | | + + + + + POC Glucose (07/05/2018 9:09 PM PST) + +---------+ + + + | Component | Value | Ref Range | Performed | Pathologist | | | | | At | Signature | + +---------+ + + + | Glucose, | 163 (H) | 70 - 109 mg/dL | [facility] | | | POC | | | [facility] | | | | | | [...] + | [facility] | [address] | [place] | [phone] | | [facility] | | [address] | | | - LABORATORY | | | | + + + + + POC Glucose (07/05/2018 5:14 PM PST) + +---------+ + + + | Component | Value | Ref Range | Performed | Pathologist | | | | | At | Signature | + +---------+ + + + | Glucose, | 115 (H) | 70 - 109 mg/dL | [...] [address] | [place] | [phone] | | [facility] | | [address] | | | - LABORATORY | | | | + + + + + POC Glucose (07/05/2018 11:41 AM PST) + +---------+ + + + | Component | Value | Ref Range | Performed | Pathologist | | | | | At | Signature | + +---------+ + + + | Glucose, | 244 (H) | 70 - 109 mg/dL | [...] + | [facility] | [address] | [place] | [phone] | | [facility] | | [address] | | | - LABORATORY | | | | + + + + + Renal Function Panel (07/05/2018 6:11 AM PST) + + + + + + | Component | Value | Ref Range | Performed | Pathologist | | | | | At | Signature | + + + + + + | Na | 134 (L) | 136 - 149 | [facility] | | | | | mmol/L | [facility] | | | | | | MEDICAL | | | | | | CENTER - | | | | | | LABORATORY | | + + + + + + | K | 4.3 | 3.5 - 5.1 | [facility] | | | | | mmol/L | [facility] | | | | | | MEDICAL | | | | | | CENTER - | | | | | | LABORATORY | | + + + + + + | Cl | 102 | 98 - 109 mmol/L | [facility] | | | | | | [facility] | | | | | | MEDICAL | | | | | | CENTER - | | | | | | LABORATORY | | + + + + + + | CO2 | 23 (L) | 24 - 31 mmol/L | [facility] [...] + + + + | Glucose | 140 (H) | 70 - 109 mg/dL | [facility] | | | | | | [facility] | | | | | | MEDICAL | | | | | | CENTER - | | | | | | LABORATORY | | + + + + + + | BUN | 50 (H) | 7 - 18 mg/dL | [facility] | | | | | | [facility] | | | | | | [facility] | | | | | | CENTER - | | | | | | LABORATORY | | + + + + + + | Creatinine | 2.31 (H) | 0.60 - 1.30 | [facility] | | | | | mg/dL | [facility] | | | | | | MEDICAL | | | | | | CENTER - | | | | | | LABORATORY | | + + + + + + | eGFR if not | 28 (L) | >=60 | [facility] | | | | | mL/min/1.73m2 | [facility] | | | [place] | | | MEDICAL | | | | | | CENTER - | | | | | | LABORATORY | | + + + + + + | Calcium | 8.7 | 8.3 - 10.5 | [facility] | | | | | mg/dL | [facility] | | | | | | [facility] | | | | | | CENTER - | | | | | | LABORATORY | | + + + + + + | Albumin | 2.6 (L) | 3.2 - 5.0 g/dL | [facility] | | | | | | [facility] | | | | | | MEDICAL | | | | | | CENTER - | | | | | | LABORATORY | | + + + + + + | Phosphorus | 3.0 | 2.5 - 4.6 mg/dL | [facility] | | | | | | [facility] | | | | | | MEDICAL | | | | | | CENTER - | | | | | | LABORATORY | | + + + + + + | BUN/Creatin | 21.6 | | [facility] | | | ine [...] [address] | [place] | [phone] | | [facility] | | [address] | | | - LABORATORY | | | | + + + + + CBC with Differential (07/05/2018 6:11 AM PST) + + + + + + | Component | Value | Ref Range | Performed | Pathologist | | | | | At | Signature | + + + + + + | WBC | 9.1 | 4.0 - 11.0 K/uL | [facility] | | | | | | [facility] [...] + + + + | Hematocrit | 36.9 (L) | 40.0 - 51.0 % | [facility] | | | | | | [facility] | | | | | | MEDICAL | | | | | | CENTER - | | | | | | LABORATORY | | + + + + + + | MCV | 99.2 | 83.0 - 101.0 fL | [facility] [...] + + + + | MCHC | 32.2 | 32.0 - 36.0 | [facility] | | | | | g/dL | [facility] | | | | | | MEDICAL | | | | | | CENTER - | | | | | | LABORATORY | | + + + + + + | RDW-CV | 16.7 (H) | <15.0 % | [facility] | | | | | | [facility] | | | | | | MEDICAL | | | | | | CENTER - | | | | | | LABORATORY | | + + + + + + | RDW-SD | 61.1 (H) | 35.1 - 46.3 fL | [...] + + + + | MPV | 11.7 | 6.5 - 12.4 fL | [facility] | | | | | | [facility] | | | | | | MEDICAL | | | | | | CENTER - | | | | | | LABORATORY | | + + + + + + | Immature | 5.6Comment: Low PLT + | 0.9 - 11.2 [...] + + + + | % | 80.3 | 45.0 - 82.0 % | [facility] | | | Neutrophils | | | [facility] | | | | | | MEDICAL | | | | | | CENTER - | | | | | | LABORATORY | | + + + + + + | % | 8.9 (L) | 20.0 - 45.0 % | [facility] | | | Lymphocytes | | | [facility] | | | | | | MEDICAL | | | | | | CENTER - | | | | | | LABORATORY | | + + + + + + | % Monocytes | 8.0 | 4.0 - 12.0 % | [facility] | | | | | | [facility] | | | | | | MEDICAL | | | | | | CENTER - | | | | | | LABORATORY | | + + + + + + | % | 1.5 | 0.0 - 5.0 % | [facility] [...] + + + + | Absolute | 7.30 | 1.80 - 8.50 | [facility] | | | Neutrophils | | K/uL | [facility] | | | | | | MEDICAL | | | | | | CENTER - | | | | | | LABORATORY | | + + + + + + | Absolute | 0.81 | 0.60 - 3.20 | [facility] | | | Lymphocytes | | K/uL | [facility] | | | | | | MEDICAL | | | | | | CENTER - | | | | | | LABORATORY | | + + + + + + | Absolute | 0.73 | 0.00 - 1.00 | [facility] | | | Monocytes | | K/uL | [facility] | | | | | | MEDICAL | | | | | | CENTER - | | | | | | LABORATORY | | + + + + + + | Absolute | 0.14 | 0.00 - 0.40 | [facility] | [...] | | Basophils | | K/uL | [facility] | | | | | | MEDICAL | | | | | | CENTER - | | | | | | LABORATORY | | + + + + + + | Absolute | 0.05 (H) | 0.00 - 0.03 | [facility] | | | Immature | | K/uL | [facility] | | | Granulocyte | | | MEDICAL | | | s | | | CENTER - | | | | | | LABORATORY | | + + + + + + | % nRBC | 0 | 0 - 2 per 100 | [facility] | | | | | WBC's | [facility] | | | | | | MEDICAL | | | | | | CENTER - | | | | | | LABORATORY | | + + + + + + | Absolute | 0.00 | 0.00 - 0.01 | [facility] | | | nRBC | | K/uL | [facility] | [...] [address] | [place] | [phone] | | [facility] | | [address] | | | - LABORATORY | | | | + + + + + POC Glucose (07/04/2018 9:50 PM PST) + +---------+ + + + | Component | Value | Ref Range | Performed | Pathologist | | | | | At | Signature | + +---------+ + + + | Glucose, | 195 (H) | 70 - 109 mg/dL | [...] + | [facility] | [address] | [place] | [phone] | | [facility] | | [address] | | | - LABORATORY | | | | + + + + + POC Glucose (07/04/2018 4:02 PM PST) + +---------+ + + + | Component | Value | Ref Range | Performed | Pathologist | | | | | At | Signature | + +---------+ + + + | Glucose, | 175 (H) | 70 - 109 mg/dL | [...] [address] | [place] | [phone] | | [facility] | | [address] | | | - LABORATORY | | | | + + + + + POC Glucose (07/04/2018 11:32 AM PST) + +---------+ + + + | Component | Value | Ref Range | Performed | Pathologist | | | | | At | Signature | + +---------+ + + + | Glucose, | 140 (H) | 70 - 109 mg/dL | [...] [address] | [place] | [phone] | | [facility] | | [address] | | | - LABORATORY | | | | + + + + + POC Glucose (07/04/2018 6:41 AM PST) + +---------+ + + + | Component | Value | Ref Range | Performed | Pathologist | | | | | At | Signature | + +---------+ + + + | Glucose, | 120 (H) | 70 - 109 mg/dL | [...] + | [facility] | [address] | [place] | [phone] | | [facility] | | [address] | | | - LABORATORY | | | | + + + + + Renal Function Panel (07/04/2018 4:46 AM PST) + + + + + + | Component | Value | Ref Range | Performed | Pathologist | | | | | At | Signature | + + + + + + | Na | 138 | 136 - 149 | [facility] | | | | | mmol/L | [facility] | | | | | | MED[facility] | | | | | | CENTER - | | | | | | LABORATORY | | + + + + + + | K | 4.2 | 3.5 - 5.1 | [facility] | | | | | mmol/L | [facility] | | | | | | MEDICAL | | | | | | CENTER - | | | | | | LABORATORY | | + + + + + + | Cl | 106 | 98 - 109 mmol/L | [facility] | | | | | | [facility] | | | | | | MEDICAL | | | | | | CENTER - | | | | | | LABORATORY | | + + + + + + | CO2 | 27 | 24 - 31 mmol/L | [facility] [...] + + + + | Glucose | 144 (H) | 70 - 109 mg/dL | [facility] | | | | | | [facility] | | | | | | MEDICAL | | | | | | CENTER - | | | | | | LABORATORY | | + + + + + + | BUN | 72 (H) | 7 - 18 mg/dL | [facility] | | | | | | [facility] | | | | | | MEDICAL | | | | | | CENTER - | | | | | | LABORATORY | | + + + + + + | Creatinine | 2.68 (H) | 0.60 - 1.30 | [facility] | | | | | mg/dL | [facility] | | | | | | MEDICAL | | | | | | CENTER - | | | | | | LABORATORY | | + + + + + + | eGFR if not | 24 (L) | >=60 | [facility] | | | | | mL/min/1.73m2 | [facility] | | | [place] | | | [facility] | | | [...] + + + + | Albumin | 2.4 (L) | 3.2 - 5.0 g/dL | [facility] | | | | | | [facility] | | | | | | [facility] | | | | | | [facility] - | | | | | | LABORATORY | | + + + + + + | Phosphorus | 3.7 | 2.5 - 4.6 mg/dL | [facility] | | | | | | [facility] | | | | | | [facility] | | | | | | [facility] - | | | | | | LABORATORY | | + + + + + + | BUN/Creatin | 26.9 | | [facility] | | | ine [...] [address] | [place] | [phone] | | [facility] | | [address] | | | - LABORATORY | | | | + + + + + POC Glucose (07/03/2018 9:36 PM PST) + +---------+ + + + | Component | Value | Ref Range | Performed | Pathologist | | | | | At | Signature | + +---------+ + + + | Glucose, | 186 (H) | 70 - 109 mg/dL | [...] [address] | [place] | [phone] | | [facility] | | [address] | | | - LABORATORY | | | | + + + + + POC Glucose (07/03/2018 5:13 PM PST) + +---------+ + + + | Component | Value | Ref Range | Performed | Pathologist | | | | | At | Signature | + +---------+ + + + | Glucose, | 144 (H) | 70 - 109 mg/dL | [...] + | [facility] | [address] | [place], [place] | [phone] | | [facility] | | [address] | | | - LABORATORY | | | | + + + + + XR Chest 1 Vw (07/03/2018 4:55 PM PST) + + | Specimen | + + | | + + + + + | Narrative | Performed At | + + + | XR CHEST 1 VIEW 07/03/2018 4:55 PM HISTORY: post central line. | [facility] | | COMPARISON: Multiple priors FINDINGS: Lines and tubes are | | | stable. Median sternotomy wires are once again seen, many of which | | | are fractured. Heart is enlarged. Diffuse thickening of the central | | | bronchovascular markings. Minimal bibasilar atelectasis. No evidence | | | of pneumothorax. No acute osseous abnormality. Remote fracture | | | deformities of the ribs. IMPRESSION - New right internal jugular | | | approach dual-lumen central catheter tip terminates in the upper/mid | | | right atrium. Cardiomegaly. Findings are suggestive of mild | | | diffuse interstitial pulmonary edema. Dictated and Signed by: Fadi | | | MD Suleman Electronically signed: 07/03/2018 7:09 PM | | + + + + + | Procedure Note | + + | Lalo, Rad Results In - 07/03/2018 7:12 PM PST XR CHEST 1 VIEW 07/03/2018 4:55 PM | | | | HISTORY: post central line. | | | | COMPARISON: Multiple priors | | | | FINDINGS: | | Lines and tubes are stable. Median sternotomy wires are once again seen, many of | | which are fractured. Heart is enlarged. Diffuse thickening of the central | | bronchovascular markings. Minimal bibasilar atelectasis. No evidence of | | pneumothorax. No acute osseous abnormality. Remote fracture deformities of the | | ribs. | | | | IMPRESSION - | | New right internal jugular approach dual-lumen central catheter tip terminates | | in the upper/mid right atrium. | | | | Cardiomegaly. | | | | Findings are suggestive of mild diffuse interstitial pulmonary edema. | | | | Dictated and Signed by: Fadi Shell MD | | Electronically signed: 07/03/2018 7:09 PM | + + + +---------+ + + | Performing | Address | City/State/Zipcode | Phone Number | | Organization | | | | + +---------+ + + | [facility] | | | | + +---------+ + + [place] CVA Device Placement (07/03/2018 4:25 PM PST) + + | Specimen | + + | | + + + + + | Narrative | Performed At | + + + | This exam has been auto-finalized and the interpretation may exist | [facility] | | elsewhere in the chart. | | + + + + +---------+ + + | Performing | Address | City/State/Zipcode | Phone Number | | Organization | | | | + +---------+ + + | [facility] | | | | + +---------+ + + POC Glucose (07/03/2018 4:23 PM PST) + +---------+ + + + | Component | Value | Ref Range | Performed | Pathologist | | | | | At | Signature | + +---------+ + + + | Glucose, | 139 (H) | 70 - 109 mg/dL | [...] + | [facility] | [address] | [place] | [phone] | | [facility] | | [address] | | | - LABORATORY | | | | + + + + + POC Glucose (07/03/2018 12:34 PM PST) + +---------+ + + + | Component | Value | Ref Range | Performed | Pathologist | | | | | At | Signature | + +---------+ + + + | Glucose, | 146 (H) | 70 - 109 mg/dL | [...] [address] | [place] | [phone] | | [facility] | | [address] | | | - LABORATORY | | | | + + + + + POC Glucose (07/03/2018 6:33 AM PST) + +---------+ + + + | Component | Value | Ref Range | Performed | Pathologist | | | | | At | Signature | + +---------+ + + + | Glucose, | 135 (H) | 70 - 109 mg/dL | [facility] | | | POC | | | [facility] | | | | | | [address] | [place] | [phone] | | [facility] | | [address] | | | - LABORATORY | | | | + + + + + Renal Function Panel (07/03/2018 4:16 AM PST) + + + + + + | Component | Value | Ref Range | Performed | Pathologist | | | | | At | Signature | + + + + + + | Na | 133 (L) | 136 - 149 | [facility] | | | | | mmol/L | [facility] | | | | | | [facility] | | | | | | CENTER - | | | | | | LABORATORY | | + + + + + + | K | 4.0 | 3.5 - 5.1 | [facility] | | | | | mmol/L | [facility] | | | | | | [facility] | | | | | | CENTER - | | | | | | LABORATORY | | + + + + + + | Cl | 101 | 98 - 109 mmol/L | [facility] [...] [facility] | | [facility] | | | [facility] | [facility] | | | | | | C[facility] - | | | | | | LABORATORY | | + + + + + + | Glucose | 137 (H) | 70 - 109 mg/dL | [facility] | | | | | [facility] | | | | | | [facility] | | | | | | CENTER - | | | | | | LABORATORY | | + + + + + + | BUN | 59 (H) | 7 - 18 mg/dL | [facility] | | | | | | [facility] | [facility] | [facility] | [facility] | | | | | | CENTER - | | | | | | LABORATORY | | + + + + + + | Creatinine | 2.29 (H) | 0.60 - 1.30 | [facility] | | | | | mg/dL | [facility] | | | | | | [facility] | | | | | | CENTER - | | | | | | LABORATORY | | + + + + + + | eGFR if not | 28 (L) | >=60 | [facility] | | | | | mL/min/1.73m2 | [facility] | | | [facility] | | | [facility] | | | | | | CENTER - | | | | | | LABORATORY | | + + + + + + | Calcium | 8.9 | 8.3 - 10.5 | [facility] | | | | | mg/dL | [facility] | | | | | | MEDICAL | | | | | | CENTER - | | | | | | LABORATORY | | + + + + + + | Albumin | 2.4 (L) | 3.2 - 5.0 g/dL | [facility] | | | | | | [facility] | | | | | | [facility] | | | | | | CENTER - | | | | | | LABORATORY | | + + + + + + | Phosphorus | 2.5 | 2.5 - 4.6 mg/dL | [facility] | | | | | | [facility] | | | | | | [facility]ICAL | | | | | | CENTER - | | | | | | LABORATORY | | + + + + + + | BUN/Creatin | 25.8 | | [facility] | | | ine [...] [address] | [place] | [phone] | | [facility] | | [address] | | | - LABORATORY | | | | + + + + + POC Glucose (07/02/2018 8:55 PM PST) + +---------+ + + + | Component | Value | Ref Range | Performed | Pathologist | | | | | At | Signature | + +---------+ + + + | Glucose, | 149 (H) | 70 - 109 mg/dL | [...] [address] | [place] | [phone] | | [facility] | | [address] | | | - LABORATORY | | | | + + + + + POC Glucose (07/02/2018 4:34 PM PST) + +---------+ + + + | Component | Value | Ref Range | Performed | Pathologist | | | | | At | Signature | + +---------+ + + + | Glucose, | 179 (H) | 70 - 109 mg/dL | [...] [address] | [place] | [phone] | | [facility] | | [address] | | | - LABORATORY | | | | + + + + + POC Glucose (07/02/2018 12:27 PM PST) + +---------+ + + + | Component | Value | Ref Range | Performed | Pathologist | | | | | At | Signature | + +---------+ + + + | Glucose, | 150 (H) | 70 - 109 mg/dL | [...] [address] | [place] | [phone] | | [facility] | | [address] | | | - LABORATORY | | | | + + + + + POC Glucose (07/02/2018 6:49 AM PST) + +---------+ + + + | Component | Value | Ref Range | Performed | Pathologist | | | | | At | Signature | + +---------+ + + + | Glucose, | 117 (H) | 70 - 109 mg/dL | [...] + | [facility] | [address] | [place] | [phone] | | [facility] | | [address] | | | - LABORATORY | | | | + + + + + Comprehensive Metabolic Panel (07/02/2018 3:28 AM PST) + + + + + + | Component | Value | Ref Range | Performed | Pathologist | | | | | At | Signature | + + + + + + | Na | 134 (L) | 136 - 149 | [facility] | | | | | mmol/L | [facility] | | | | | | MEDICAL | | | | | | CENTER - | | | | | | LABORATORY | | + + + + + + | K | 4.0 | 3.5 - 5.1 | [facility] | | | | | mmol/L | [facility] | | | | | | MEDICAL | | | | | | CENTER - | | | | | | LABORATORY | | + + + + + + | Cl | 101 | 98 - 109 mmol/L | [facility] | | | | | | [facility] | | | | | | MEDICAL | | | | | | CENTER - | | | | | | LABORATORY | | + + + + + + | CO2 | 26 | 24 - 31 mmol/L | [facility] [...] + | Glucose | 137 (H) | 70 - 109 mg/dL | [facility] | | | | | | [facility] | | | | | | MEDICAL | | | | | | CENTER - | | | | | | LABORATORY | | + + + + + + | BUN | 77 (H) | 7 - 18 mg/dL | [facility] | | | | | | [facility] | | | | | | MEDICAL | | | | | | CENTER - | | | | | | LABORATORY | | + + + + + + | Creatinine | 3.23 (H) | 0.60 - 1.30 | [facility] | | | | | mg/dL | [facility] | | | | | | MEDICAL | | | | | | CENTER - | | | | | | LABORATORY | | + + + + + + | eGFR if not | 19 (L)Comment: | >=60 | [facility] | | | | GLOMERULAR FILTRATION | mL/min/1.73m2 | [facility] | | | [facility] | RATE,ESTIMATED | | MEDICAL | | | | mL/min/1.23u3Umsl than | | CENTER - | | [...] + + + + | Calcium | 9.0 | 8.3 - 10.5 | [facility] | | | | | mg/dL | [facility] | | | | | | MEDICAL | | | | | | CENTER - | | | | | | LABORATORY | | + + + + + + | Albumin | 2.3 (L) | 3.2 - 5.0 g/dL | [facility] | | | | | | [facility] | | | | | | MEDICAL | | | | | | CENTER - | | | | | | LABORATORY | | + + + + + + | Bilirubin | 1.5 | 0.1 - 1.5 mg/dL | [facility] | | | Total | | | [facility] | | | | | | MEDICAL | | | | | | CENTER - | | | | | | LABORATORY | | + + + + + + | Total | 6.5 | 6.0 - 7.8 g/dL | [facility] | | | Protein | | | [facility] | | | | | | MEDICAL | | | | | | CENTER - | | | | | | LABORATORY | | + + + + + + | AST | 29 | 10 - 42 U/L | [facility] | | | | | | [facility] | | | | | | MEDICAL | | | | | | CENTER - | | | | | | LABORATORY | | + + + + + + | ALT | 20 | 6 - 45 U/L | [facility] | | | | | | [facility] | | | | | | MEDICAL | | | | | | CENTER - | | | | | | LABORATORY | | + + + + + + | Alkaline | 131 (H) | 40 - 110 U/L | [facility] | | | Phosphatase | | | [facility] | | | | | | MEDICAL | | | | | | CENTER - | | | | | | LABORATORY | | + + + + + + | Globulin | 4.2 (H) | 2.1 - 3.8 g/dL | [facility] | | | | | | [facility] | | | | | | MEDICAL | | | | | | CENTER - | | | | | | LABORATORY | | + + + + + + | Albumin/Becky | 0.5 (L) | 0.8 - 2.0 | [facility] | | | bulin Ratio | | | [facility] | | | | | | MEDICAL | | | | | | CENTER - | | | | | | LABORATORY | | + + + + + + | BUN/Creatin | 23.8 | | [facility] | | | ine [...] [address] | [place] | [phone] | | [facility] | | [address] | | | - LABORATORY | | | | + + + + + POC Glucose (07/01/2018 9:24 PM PST) + +---------+ + + + | Component | Value | Ref Range | Performed | Pathologist | | | | | At | Signature | + +---------+ + + + | Glucose, | 171 (H) | 70 - 109 mg/dL | [facility] | | | POC | | | [facility] | | | | | | [...] + | [facility] | [address] | [place] | [phone] | | [facility] | | [address] | | | - LABORATORY | | | | + + + + + POC Glucose (07/01/2018 4:23 PM PST) + +---------+ + + + | Component | Value | Ref Range | Performed | Pathologist | | | | | At | Signature | + +---------+ + + + | Glucose, | 133 (H) | 70 - 109 mg/dL | [...] [address] | [place] | [phone] | | [facility] | | [address] | | | - LABORATORY | | | | + + + + + POC Glucose (07/01/2018 11:21 AM PST) + +---------+ + + + | Component | Value | Ref Range | Performed | Pathologist | | | | | At | Signature | + +---------+ + + + | Glucose, | 133 (H) | 70 - 109 mg/dL | [...] + | [facility] | [address] | [place] | [phone] | | [facility] | | [address] | | | - LABORATORY | | | | + + + + + POC Glucose (07/01/2018 6:16 AM PST) + +-------+ + + + | Component | Value | Ref Range | Performed | Pathologist | | | | | At | Signature | + +-------+ + + + | Glucose, | 104 | 70 - 109 mg/dL | [facility] [...] + | [facility] | [address] | [place], [place] | [phone] | | [facility] | | [address] | | | - LABORATORY | | | | + + + + + CBC with Differential (07/01/2018 3:32 AM PST) + + + + + + | Component | Value | Ref Range | Performed | Pathologist | | | | | At | Signature | + + + + + + | WBC | 7.6 | 4.0 - 11.0 K/uL | [facility] | | | | | | [facility] | | | | | | [facility] | | | | | | CENTER - | | | | | | LABORATORY | | + + + + + + | RBC | 3.63 (L) | 4.30 - 5.70 | [facility] [...] + + + + | Hematocrit | 35.6 (L) | 40.0 - 51.0 % | [...] + + + + | MCH | 31.1 | 28.0 - 35.0 pg | [facility] | | | | | | [facility] | | | | | | MEDICAL | | | | | | CENTER - | | | | | | LABORATORY | | + + + + + + | MCHC | 31.7 (L) | 32.0 - 36.0 | [facility] | | | | | g/dL | [facility] | | | | | | MEDICAL | | | | | | CENTER - | | | | | | LABORATORY | | + + + + + + | RDW-CV | 16.0 (H) | <15.0 % | [facility] | | | | | | [facility] | | | | | | MEDICAL | | | | | | CENTER - | | | | | | LABORATORY | | + + + + + + | RDW-SD | 58.4 (H) | 35.1 - 46.3 fL | [facility] | | | | | | [facility] | | | | | | MEDICAL | | | | | | CENTER - | | | | | | LABORATORY | | + + + + + + | Platelet | 111 (L) | 140 - 440 K/uL | [facility] | | | Count | | | [facility] | | | | | | MEDICAL | | | | | | CENTER - | | | | | | LABORATORY | | + + + + + + | MPV | 12.5 (H) | 6.5 - 12.4 fL | [facility] | | | | | | [facility] | | | | | | MEDICAL | | | | | | CENTER - | | | | | | LABORATORY | | + + + + + + | % | 82.0 | 45.0 - 82.0 % | [facility] | | | Neutrophils | | | [facility] | | | | | | MEDICAL | | | | | | CENTER - | | | | | | LABORATORY | | + + + + + + | % | 7.1 (L) | 20.0 - 45.0 % | [facility] | | | Lymphocytes | | | [facility] | | | | | | MEDICAL | | | | | | CENTER - | | | | | | LABORATORY | | + + + + + + | % Monocytes | 9.2 | 4.0 - 12.0 % | [facility] | | | | | | [facility] | | | | | | MEDICAL | | | | | | CENTER - | | | | | | LABORATORY | | + + + + + + | % | 0.5 | 0.0 - 5.0 % | [facility] [...] + + + | % Immature | 0.8 (H)Comment: | 0.0 - 0.4 % | [...] + + + + | Absolute | 6.23 | 1.80 - 8.50 | [facility] | | | Neutrophils | | K/uL | [facility] | | | | | | MEDICAL | | | | | | CENTER - | | | | | | LABORATORY | | + + + + + + | Absolute | 0.54 (L) | 0.60 - 3.20 | [facility] | | | Lymphocytes | | K/uL | [facility] | | | | | | MEDICAL | | | | | | CENTER - | | | | | | LABORATORY | | + + + + + + | Absolute | 0.70 | 0.00 - 1.00 | [facility] | | | Monocytes | | K/uL | [facility] | | | | | | MEDICAL | | | | | | CENTER - | | | | | | LABORATORY | | + + + + + + | Absolute | 0.04 | 0.00 - 0.40 | [facility] | [...] + + + | Absolute | 0.06 (H) | 0.00 - 0.03 | [facility] [...] | [facility] | | | | | WBC's | [facility] | | | | [...] + | [facility] | [address] | [place] | [phone] | | [facility] | | [address] | | | - LABORATORY | | | | + + + + + Renal Function Panel (07/01/2018 3:32 AM PST) + + + + + + | Component | Value | Ref Range | Performed | Pathologist | | | | | At | Signature | + + + + + + | Na | 134 (L) | 136 - 149 | [facility] | | | | | mmol/L | [facility] | | | | | | MEDICAL | | | | | | CENTER - | | | | | | LABORATORY | | + + + + + + | K | 3.8 | 3.5 - 5.1 | [facility] | | | | | mmol/L | [facility] | | | | | | MEDICAL | | | | | | CENTER - | | | | | | LABORATORY | | + + + + + + | Cl | 101 | 98 - 109 mmol/L | [facility] [...] + + + | Anion Gap | 8 | 3 - 16 mmol/L | [facility] | | | | | | [facility] | | | | | | MEDICAL | | | | | | CENTER - | | | | | | LABORATORY | | + + + + + + | Glucose | 121 (H) | 70 - 109 mg/dL | [facility] | | | | | | [facility] | | | | | | MEDICAL | | | | | | CENTER - | | | | | | LABORATORY | | + + + + + + | BUN | 62 (H) | 7 - 18 mg/dL | [facility] | | | | | | [facility] | | | | | | MEDICAL | | | | | | CENTER - | | | | | | LABORATORY | | + + + + + + | Creatinine | 2.75 (H) | 0.60 - 1.30 | [facility] | | | | | mg/dL | [facility] | | | | | | MEDICAL | | | | | | CENTER - | | | | | | LABORATORY | | + + + + + + | eGFR if not | 23 (L) | >=60 | [facility] | | | | | mL/min/1.73m2 | [facility] | | | [facility] | | | MEDICAL | | | | | | CENTER - | | | | | | LABORATORY | | + + + + + + | Calcium | 8.7 | 8.3 - 10.5 | [facility] | | | | | mg/dL | [facility] | | | | | | [facility]ICAL | | | | | | CENTER - | | | | | | LABORATORY | | + + + + + + | Albumin | 2.4 (L) | 3.2 - 5.0 g/dL | [facility] | | | | | | [facility] | | | | | | MEDICAL | | | | | | CENTER - | | | | | | LABORATORY | | + + + + + + | Phosphorus | 3.9 | 2.5 - 4.6 mg/dL | [facility] | | | | | | [facility] | | | | | | MEDICAL | | | | | | CENTER - | | | | | | LABORATORY | | + + + + + + | BUN/Creatin | 22.5 | | [facility] | | | ine [...] [address] | [place] | [phone] | | [facility] | | [address] | | | - LABORATORY | | | | + + + + + POC Glucose (06/30/2018 8:50 PM PST) + +---------+ + + + | Component | Value | Ref Range | Performed | Pathologist | | | | | At | Signature | + +---------+ + + + | Glucose, | 136 (H) | 70 - 109 mg/dL | [...] [address] | [place] | [phone] | | [facility] | | [address] | | | - LABORATORY | | | | + + + + + Ammonia (06/30/2018 6:14 PM PST) + +-------+ + + + | Component | Value | Ref Range | Performed | Pathologist | | | | | At | Signature | + +-------+ + + + | Ammonia | 30 | 11 - 35 umol/L | [facility] | | | | | [...] + | [facility] | [address] | [place] | [phone] | | [facility] | | [address] | | | - LABORATORY | | | | + + + + + Blood Gas, Arterial (06/30/2018 5:56 PM PST) + + + + + + | Component | Value | Ref Range | Performed | Pathologist | | | | | At | Signature | + + + + + + | pH, | 7.36 | 7.35 - 7.45 | [facility] | | | Arterial | | | [facility] | | | | | | MEDICAL | | | | | | CENTER - | | | | | | LABORATORY | | + + + + + + | pCO2, | 42 | 35 - 45 mm Hg | [facility] | | | Arterial | | | [facility] | | | | | | MEDICAL | | | | | | CENTER - | | | | | | LABORATORY | | + + + + + + | pO2, | 118 | >=60 mm Hg | [facility] | | | Arterial | | | [facility] | | | | | | MEDICAL | | | | | | CENTER - | | | | | | LABORATORY | | + + + + + + | HCO3, | 23.2 (H) | 18.0 - 23.0 | [facility] | | | Arterial | | mmol/L | [facility] | | | | | | MEDICAL | | | | | | CENTER - | | | | | | LABORATORY | | + + + + + + | Base | -1.5 | -2.0 - 2.0 | [facility] | | | Excess, | | mmol/L | [facility] | | | Arterial | | | MEDICAL | | | | | | CENTER - | | | | | | LABORATORY | | + + + + + + | O2 | 98 | 95 - 98 % | [facility] | | | Saturation, | | | [facility] | | | Arterial | | | MEDICAL | | | | | | CENTER - | | | | | | LABORATORY | | + + + + + + | Hemoglobin, | 12.6 (L) | 13.5 - 18 g/dL | [facility] | | | Arterial | | | [facility] | | | | | | MEDICAL | | | | | | CENTER - | | | | | | LABORATORY | | + + + + + + | Oxyhemoglob | 95.0 | 90.0 - 100.0 % | [facility] | | | in, | | | [facility] | | | Arterial | | | MEDICAL | | | | | | CENTER - | | | | | | LABORATORY | | + + + + + + | Methemoglob | 1.3 | 0.0 - 1.5 % | [facility] | | | in, | | | [facility] | | | Arterial | | | MEDICAL | | | | | | CENTER - | | | | | | LABORATORY | | + + + + + + | Carboxyhemo | 2.1 (H) | 0.0 - 1.5 % | [facility] | | | globin, | | | [facility] | | | Arterial | | | MEDICAL | | | | | | CENTER - | | | | | | LABORATORY | | + + + + + + | FiO2 | 60.0 | % | [facility] | | | | | | [facility] | | | | | | MEDICAL | | | | | | CENTER - | | | | | | LABORATORY | | + + + + + + | pH Temp | 7.36 | | [facility] | | | Corrected, | | | [facility] | | | Arterial | | | MEDICAL | | | | | | CENTER - | | | | | | LABORATORY | | + + + + + + | pCO2 Temp | 42 | mmHg | [facility] | | | Corrected, | | | [facility] | | | Arterial | | | MEDICAL | | | | | | CENTER - | | | | | | LABORATORY | | + + + + + + | pO2 Temp | 118 | mmHg | [facility] | | | Corrected, | | | [facility] | | | Arterial | | | MEDICAL | | | | | | CENTER - | | | | | | LABORATORY | | + + + + + + | PATIENT | 37.0 | | [facility] | | | TEMP | | | [facility] | | | | | | MEDICAL | | | | | | CENTER - | | | | | | LABORATORY | | + + + + + + + + | Specimen | + + | Blood - Artery | | sample (specimen) | + + + + + + + | Performing | Address | City/State/Zipcode | Phone Number | | Organization | | | | + + + + + | [facility] | [address] | [place] | [phone] | | [facility] | | [address] | | | - LABORATORY | | | | + + + + + POC Glucose (06/30/2018 4:56 PM PST) + +---------+ + + + | Component | Value | Ref Range | Performed | Pathologist | | | | | At | Signature | + +---------+ + + + | Glucose, | 110 (H) | 70 - 109 mg/dL | [...] + + | [facility] | [address] | [place] | [phone] | | [facility] | | [address] | | | - LABORATORY | | | | + + + + + POC Glucose (06/30/2018 1:38 PM PST) + +---------+ + + + | Component | Value | Ref Range | Performed | Pathologist | | | | | At | Signature | + +---------+ + + + | Glucose, | 139 (H) | 70 - 109 mg/dL | [...] + | [facility] | [address] | [place] | [phone] | | [facility] | | [address] | | | - LABORATORY | | | | + + + + + POC Glucose (06/30/2018 8:31 AM PST) + +---------+ + + + | Component | Value | Ref Range | Performed | Pathologist | | | | | At | Signature | + +---------+ + + + | Glucose, | 134 (H) | 70 - 109 mg/dL | [...] [address] | [place] | [phone] | | [facility] | | [address] | | | - LABORATORY | | | | + + + + + POC Glucose (06/30/2018 7:10 AM PST) + +---------+ + + + | Component | Value | Ref Range | Performed | Pathologist | | | | | At | Signature | + +---------+ + + + | Glucose, | 143 (H) | 70 - 109 mg/dL | [...] [address] | [place] | [phone] | | [facility] | | [address] | | | - LABORATORY | | | | + + + + + CBC no Differential (06/30/2018 4:02 AM PST) + + + + + + | Component | Value | Ref Range | Performed | Pathologist | | | | | At | Signature | + + + + + + | WBC | 8.7 | 4.0 - 11.0 K/uL | [facility] | | | | | | [facility] | | | | | | MEDICAL | | | | | | CENTER - | | | | | | LABORATORY | | + + + + + + | RBC | 3.77 (L) | 4.30 - 5.70 | [facility] [...] | | | | | g/dL | [facility] | | | | | | MEDICAL | | | | | | CENTER - | | | | | | LABORATORY | | + + + + + + | Hematocrit | 36.2 (L) | 40.0 - 51.0 % | [facility] | | | | | | [facility] | | | | | | MEDICAL | | | | | | CENTER - | | | | | | LABORATORY | | + + + + + + | MCV | 96.0 | 83.0 - 101.0 fL | [facility] | | | | | | [facility] | | | | | | MEDICAL | | | | | | CENTER - | | | | | | LABORATORY | | + + + + + + | MCH | 31.6 | 28.0 - 35.0 pg | [facility] | | | | | | [facility] | | | | | | MEDICAL | | | | | | CENTER - | | | | | | LABORATORY | | + + + + + + | MCHC | 32.9 | 32.0 - 36.0 | [facility] | [...] + + + + | Platelet | 80 (L) | 140 - 440 K/uL | [facility] | | | Count | | | [facility] | | | | | | MEDICAL | | | | | | CENTER - | | | | | | LABORATORY | | + + + + + + | MPV | 12.6 (H) | 6.5 - 12.4 fL | [facility] | | | | | | [facility] | | | | | | MEDICAL | | | | | | CENTER - | | | | | | LABORATORY | | + + + + + + | Immature | 6.8Comment: Low PLT + | 0.9 - 11.2 [...] | [facility] | | | | | WBC's | [facility] | | | | | | MEDICAL | | | | | | CENTER - | | | | | | LABORATORY | | + + + + + + | Absolute | 0.00 | 0.00 - 0.01 | [facility] | | | nRBC | | K/uL | [facility] | | | | | [...] [address] | [place] | [phone] | | [facility] | | [address] | | | - LABORATORY | | | | + + + + + Renal Function Panel (06/30/2018 4:02 AM PST) + + + + + + | Component | Value | Ref Range | Performed | Pathologist | | | | | At | Signature | + + + + + + | Na | 131 (L) | 136 - 149 | [facility] | | | | | mmol/L | [facility] | | | | | | [facility] | | | | | | CENTER - | | | | | | LABORATORY | | + + + + + + | K | 4.7 | 3.5 - 5.1 | [facility] | | | | | mmol/L | [facility] | | | | | | [facility] | | | | | | CENTER - | | | | | | LABORATORY | | + + + + + + | Cl | 98 | 98 - 109 mmol/L | [facility] | [facility] | [facility] | | [facility] | | | [facility] | | | | | | CENTER - | | | | | | LABORATORY | | + + + + + + | CO2 | 24 | 24 - 31 mmol/L | [facility] [...] + + + + | Glucose | 157 (H) | 70 - 109 mg/dL | [facility] | [facility] | | | | | | [facility] - | | | | | | LABORATORY | | + + + + + + | BUN | 88 (H) | 7 - 18 mg/dL | [...] + | eGFR if not | 19 (L) | >=60 | [facility] | | | | | mL/min/1.73m2 | [facility] | | | [facility] | | | [facility] | | | | | | CENTER - | | | | | | LABORATORY | | + + + + + + | Calcium | 8.6 | 8.3 - 10.5 | [facility] | | | | | mg/dL | [facility] | | | | | | [facility] | | | | | | CENTER - | | | | | | LABORATORY | | + + + + + + | Albumin | 2.4 (L) | 3.2 - 5.0 g/dL | [facility] | | | | | | [facility] | | | | | | [facility] | | | | | | CENTER - | | | | | | LABORATORY | | + + + + + + | Phosphorus | 4.7 (H) | 2.5 - 4.6 mg/dL | [facility] | | [facility] | [facility] | | | | | | [facility]ICAL | | | | | | CENTER - | | | | | | LABORATORY | | + + + + + + | BUN/Creatin | 27.3 | | [facility] | | | ine [...] [address] | [place] | [phone] | | [facility] | | [address] | | | - LABORATORY | | | | + + + + + POC Glucose (06/29/2018 8:18 PM PST) + +---------+ + + + | Component | Value | Ref Range | Performed | Pathologist | | | | | At | Signature | + +---------+ + + + | Glucose, | 152 (H) | 70 - 109 mg/dL | [...] + | [facility] | [address] | [place], [place] | [phone] | | [facility] | | [address] | | | - LABORATORY | | | | + + + + + POC Glucose (06/29/2018 5:54 PM PST) + +---------+ + + + | [...] [address] | [place] | [phone] | | [facility] | | [address] | | | - LABORATORY | | | | + + + + + POC Glucose (06/29/2018 11:50 AM PST) + +-------+ + + + | Component | Value | Ref Range | Performed | Pathologist | | | | | At | Signature | + +-------+ + + + | Glucose, | 91 | 70 - 109 mg/dL | [facility] [...] [address] | [place] | [phone] | | [facility] | | [address] | | | - LABORATORY | | | | + + + + + POC Glucose (06/29/2018 6:41 AM PST) + +-------+ + + + | Component | Value | Ref Range | Performed | Pathologist | | | | | At | Signature | + +-------+ + + + | Glucose, | 98 | 70 - 109 mg/dL | [facility] [...] + | [facility] | [address] | [place] | [phone] | | [facility] | | [address] | | | - LABORATORY | | | | + + + + + CBC no Differential (06/29/2018 3:21 AM PST) + + + + + + | Component | Value | Ref Range | Performed | Pathologist | | | | | At | Signature | + + + + + + | WBC | 9.7 | 4.0 - 11.0 K/uL | [facility] | | | | [facility] | [facility] | | | | | | CENTER - | | | | | | LABORATORY | | + + + + + + | RBC | 3.77 (L) | 4.30 - 5.70 | [facility] | | | | | M/uL | [facility] | | | | | | [facility] | | | | | | CENTER - | | | | | | LABORATORY | | + + + + + + | Hemoglobin | 12.2 (L) | 13.5 - 18.0 | [facility] [...] + + + + | MCV | 96.8 | 83.0 - 101.0 fL | [facility] | [facility] | [facility] | | | | | | MEDICAL | | | | | | CENTER - | | | | | | LABORATORY | | + + + + + + | MCH | 32.4 | 28.0 - 35.0 pg | [facility] | | | | | [facility] | | | | | | MEDICAL | | | | | | CENTER - | | | | | | LABORATORY | | + + + + + + | MCHC | 33.4 | 32.0 - 36.0 | [facility] | [...] + + + + | RDW-SD | 56.4 (H) | 35.1 - 46.3 fL | [facility] | | | | | | [facility] | | | | | | [facility] | | | | | | CENTER - | | | | | | LABORATORY | | + + + + + + | Platelet | 78 (L) | 140 - 440 K/uL | [facility] | | | Count | | | [facility] | | | | | | MEDICAL | | | | | | CENTER - | | | | | | LABORATORY | | + + + + + + | MPV | 12.3 | 6.5 - 12.4 fL | [facility] | | | | | [facility] | | | | | | [facility] | | | | | | CENTER - | | | | | | LABORATORY | | + + + + + + | % nRBC | 0 | 0 - 2 per 100 | [facility] | | | | | WBC's | [facility] | | | | | | [facility] | | | | | | CENTER - | | | | | | LABORATORY | | + + + + + + | Absolute | 0.00 | 0.00 - 0.01 | [facility] | | | nRBC | | K/uL [...] [address] | [place] | [phone] | | [facility] | | [address] | | | - LABORATORY | | | | + + + + + Renal Function Panel (06/29/2018 3:21 AM PST) + + + + + + | Component | Value | Ref Range | Performed | Pathologist | | | | | At | Signature | + + + + + + | Na | 128 (L) | 136 - 149 | [facility] | | | | | mmol/L | [facility] | | | | | | MEDICAL | | | | | | CENTER - | | | | | | LABORATORY | | + + + + + + | K | 3.9 | 3.5 - 5.1 | [facility] | | | | | mmol/L | [facility] | | | | | | MEDICAL | | | | | | CENTER - | | | | | | LABORATORY | | + + + + + + | Cl | 93 (L) | 98 - 109 mmol/L | [facility] | [facility] | | | | [facility] | [facility]ICAL | | | | | | CENTER - | | | | | | LABORATORY | | + + + + + + | CO2 | 24 | 24 - 31 mmol/L | [facility] [...] + + + + | Glucose | 115 (H) | 70 - 109 mg/dL | [facility] | | | | | | [facility] | | | | | | MEDICAL | | | | | | CENTER - | | | | | | LABORATORY | | + + + + + + | BUN | 118 (HH)Comment: | 7 - 18 mg/dL | [facility] | | | | Consistent with previous | | [facility] | | | | results. | | MEDICAL | | | | | | CENTER - | | | | | | LABORATORY | | + + + + + + | Creatinine | 4.23 (H) | 0.60 - 1.30 | [facility] [...] mL/min/1.73m2 | [facility] | | | [facility] | | | MEDICAL | | | | | | CENTER - | | | | | | LABORATORY | | + + + + + + | Calcium | 8.4 | 8.3 - 10.5 | [facility] | | | | | mg/dL | [facility] | | | | | | MEDICAL | | | | | | CENTER - | | | | | | LABORATORY | | + + + + + + | Albumin | 2.6 (L) | 3.2 - 5.0 g/dL | [facility] | | | | | | [facility] | | | | | | MEDICAL | | | | | | CENTER - | | | | | | LABORATORY | | + + + + + + | Phosphorus | 6.4 (H) | 2.5 - 4.6 mg/dL | [facility] | | | | | | [facility] | | | | | | MEDICAL | | | | | | CENTER - | | | | | | LABORATORY | | + + + + + + | BUN/Creatin | 27.9 | | [facility] | | | ine Ratio | | | [facility] | | [...] [address] | [place] | [phone] | | [facility] | | [address] | | | - LABORATORY | | | | + + + + + POC Glucose (06/28/2018 9:10 PM PST) + +---------+ + + + | Component | Value | Ref Range | Performed | Pathologist | | | | | At | Signature | + +---------+ + + + | Glucose, | 147 (H) | 70 - 109 mg/dL | [...] [address] | [place] | [phone] | | [facility] | | [address] | | | - LABORATORY | | | | + + + + + POC Glucose (06/28/2018 5:17 PM PST) + +---------+ + + + | Component | Value | Ref Range | Performed | Pathologist | | | | | At | Signature | + +---------+ + + + | Glucose, | 122 (H) | 70 - 109 mg/dL | [facility] | | | POC | | | [facility] | | | | | | MEDICAL [...] ST. | [address] | [place] | [phone] | | [facility] | | [address] | | | - LABORATORY | | | | + + + + + CT Head wo Contrast (06/28/2018 2:59 PM PST) + + | Specimen | + + | | + + + + + | Narrative | Performed At | + + + | EXAM: CT HEAD WO CONTRAST dated 06/28/2018 2:57 PM HISTORY: | [facility] | | anisocoria and increased confusion Comparison: None. | | | TECHNIQUE: Noncontrast CT is performed from the top of calvarium | | | through the skull base. Coronal and sagittal reformats are | | | performed. DOSE: DLP 806.61 mGy-cm FINDINGS: BRAIN: | | | There is moderate cerebral and cerebellar atrophy. There is | | | associated appropriate prominence of the ventricles. No areas of | | | increased attenuation to suggest intracranial hemorrhage. There is | | | no mass, mass effect, or midline shift. There are no abnormal | | | extra-axial fluid or air collections. There is preservation of the | | | caballero-white differentiation at this time. There is moderate patchy | | | to confluent decreased density in the periventricular and subcortical | | | white matter. Hypodensities in the basal ganglia likely represent | | | lacunar infarcts. 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 SCALP/ CALVARIUM: The scalp and skull | | | are intact and are unremarkable. SINUSES / ORBITS/ MASTOIDS: The | | | visible mastoid air cells and paranasal sinuses are clear. The | | | globes and retroconal contents are intact and are unremarkable. | | | IMPRESSION - No CT evidence for an acute intracranial process. | | | No intracranial mass or mass effect. 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 | | | Recommendation: Consider MRI for problem solving if this would alter | | | patient management. Dictated and Signed by: Chet Shin | | | MD Mason Electronically signed: 06/28/2018 3:26 PM | | + + + + + | Procedure Note | + + | Lalo, Rad Results In - 06/28/2018 3:29 PM PST EXAM: CT HEAD WO CONTRAST dated | | 06/28/2018 2:57 PMHISTORY: anisocoria and increased confusionComparison: None.TECHNIQUE: | | Noncontrast CT is performed from the top of calvarium through theskull base. Coronal | | and sagittal reformats are performed.DOSE: DLP 806.61 mGy-cmFINDINGS: BRAIN: There is | | moderate cerebral and cerebellar atrophy. There is associatedappropriate prominence of | | the ventricles. No areas of increased attenuation tosuggest intracranial hemorrhage. | | There is no mass, mass effect, or midlineshift. There are no abnormal extra-axial fluid | | or air collections. There ispreservation of the caballero-white differentiation at this | | time. There is moderatepatchy to confluent decreased density in the periventricular and | | subcorticalwhite matter. Hypodensities in the basal ganglia likely represent | | lacunarinfarcts. Heavy calcified disease in the cavernous carotids and | | posteriorcirculation.SCALP/ CALVARIUM: The scalp and skull are intact and are | | unremarkable.SINUSES / ORBITS/ MASTOIDS: The visible mastoid air cells and paranasal | | sinusesare clear. The globes and retroconal contents are intact and are | | unremarkable.IMPRESSION -No CT evidence for an acute intracranial process.No | | intracranial mass or mass effect.Moderate white matter disease and evidence of remote | | basal ganglia lacunarinfarcts.Recommendation: Consider MRI for problem solving if this | | would alter patientmanagement.Dictated and Signed by: Chet Cuevas MD | | Electronically signed: 06/28/2018 3:26 PM | |white matter. Hypodensities in the basal ganglia likely represent lacunar | |infarcts. Heavy calcified disease in the cavernous carotids and posterior | |circulation. | | | |SCALP/ CALVARIUM: The scalp and skull are intact and are unremarkable. | | | |SINUSES / ORBITS/ MASTOIDS: The visible mastoid air cells and paranasal sinuses | |are clear. The globes and retroconal contents are intact and are unremarkable. | | | |IMPRESSION - | | | |No CT evidence for an acute intracranial process. | | | |No intracranial mass or mass effect. | | | |Moderate white matter disease and evidence of remote basal ganglia lacunar | |infarcts. | | | |Recommendation: Consider MRI for problem solving if this would alter patient | |management. | | | | | | | |Dictated and Signed by: Chet Cuevas MD | | Electronically signed: 06/28/2018 3:26 PM | + + + +---------+ + + | Performing | Address | City/State/Zipcode | Phone Number | | Organization | | | | + +---------+ + + | [facility] | | | | + +---------+ + + POC Glucose (06/28/2018 11:26 AM PST) + +---------+ + + + | Component | Value | Ref Range | Performed | Pathologist | | | | | At | Signature | + +---------+ + + + | Glucose, | 174 (H) | 70 - 109 mg/dL | [...] + | [facility] | [address] | [place] | [phone] | | [facility] | | [address] | | | - LABORATORY | | | | + + + + + POC Glucose (06/28/2018 6:58 AM PST) + +---------+ + + + | Component | Value | Ref Range | Performed | Pathologist | | | | | At | Signature | + +---------+ + + + | Glucose, | 137 (H) | 70 - 109 mg/dL | [...] [facility]. | [address] | [place], [place] | [phone] | | [facility] | | [address] | | | - LABORATORY | | | | + + + + + Extra Blue Top Tube (06/28/2018 3:57 AM PST) + +-------+ + + + | Component | Value | Ref Range | Performed | Pathologist | | | | | At | Signature | + +-------+ + + + | Extra Blue | Done | | [facility] | | | Top Tube | | | [facility] | | [...] [address] | [place] | [phone] | | [facility] | | [address] | | | - LABORATORY | | | | + + + + + CBC with Differential (06/28/2018 3:57 AM PST) + + + + + + | Component | Value | Ref Range | Performed | Pathologist | | | | | At | Signature | + + + + + + | WBC | 11.2 (H) | 4.0 - 11.0 K/uL | [facility] | | | | | | [facility] | | | | | | MEDICAL | | | | | | CENTER - | | | | | | LABORATORY | | + + + + + + | RBC | 4.00 (L) | 4.30 - 5.70 | [facility] | | | | | M/uL | [facility] | | | | | | MEDICAL | | | | | | CENTER - | | | | | | LABORATORY | | + + + + + + | Hemoglobin | 12.8 (L) | 13.5 - 18.0 | [facility] | | | | | g/dL | [facility] | | | | | | MEDICAL | | | | | | CENTER - | | | | | | LABORATORY | | + + + + + + | Hematocrit | 38.5 (L) | 40.0 - 51.0 % | [facility] | | | | | | [facility] | | | | | | MEDICAL | | | | | | CENTER - | | | | | | LABORATORY | | + + + + + + | MCV | 96.3 | 83.0 - 101.0 fL | [facility] [...] + + + + | MCHC | 33.2 | 32.0 - 36.0 | [facility] | [...] + + + + | Platelet | 100 (L) | 140 - 440 K/uL | [facility] | | | Count | | | [facility] | | | | | | MEDICAL | | | | | | CENTER - | | | | | | LABORATORY | | + + + + + + | MPV | 12.4 | 6.5 - 12.4 fL | [facility] [...] + + + + | % | 6.3 (L) | 20.0 - 45.0 % | [facility] | | | Lymphocytes | | | [facility] | | | | | | MEDICAL | | | | | | CENTER - | | | | | | LABORATORY | | + + + + + + | % Monocytes | 8.8 | 4.0 - 12.0 % | [facility] [...] + + + | % Immature | 0.2 | 0.0 - 0.4 % | [facility] | | | Granulocyte | | | [facility] | | | s | | | MEDICAL | | | | | | CENTER - | | | | | | LABORATORY | | + + + + + + | Absolute | 9.46 (H) | 1.80 - 8.50 | [facility] | | | Neutrophils | | K/uL | [facility] | | | | | | MEDICAL | | | | | | CENTER - | | | | | | LABORATORY | | + + + + + + | Absolute | 0.71 | 0.60 - 3.20 | [facility] | | | Lymphocytes | | K/uL | [facility] | | | | | | MEDICAL | | | | | | CENTER - | | | | | | LABORATORY | | + + + + + + | Absolute | 0.99 | 0.00 - 1.00 | [facility] | | | Monocytes | | K/uL | [facility] | [...] | | Basophils | | K/uL | [facility] | | | | | | MEDICAL | | | | | | CENTER - | | | | | | LABORATORY | | + + + + + + | Absolute | 0.02 | 0.00 - 0.03 | [facility] | | | Immature | | K/uL | [facility] | | | Granulocyte | | | MEDICAL | | | s | | | CENTER - | | | | | | LABORATORY | | + + + + + + | % nRBC | 0 | 0 - 2 per 100 | [facility] | | | | | WBC's | [facility] | | | | [...] + | [facility] | [address] | [place] | [phone] | | [facility] | | [address] | | | - LABORATORY | | | | + + + + + Phosphorus (06/28/2018 3:57 AM PST) + + + + + + | Component | Value | Ref Range | Performed | Pathologist | | | | | At | Signature | + + + + + + | Phosphorus | 9.2 ()Comment: | 2.5 - 4.6 mg/dL | [facility] | | | | Critical Result called | | [facility] | | | | to and read back by | | MEDICAL | | | | Natasha Sosa on | | CENTER - | | | | 06/28/2018 at 5:07 by | | LABORATORY | | | | Young Mitchell | | | | + + + + + + + + | Specimen | + + | Blood | + + + + + + + | Performing | Address | City/State/Zipcode | Phone Number | | Organization | | | | + + + + + | [facility] | [address] | [place] | [phone] | | [facility] | | [address] | | | - LABORATORY | | | | + + + + + Comprehensive Metabolic Panel (06/28/2018 3:57 AM PST) + + + + + + | Component | Value | Ref Range | Performed | Pathologist | | | | | At | Signature | + + + + + + | Na | 127 (L) | 136 - 149 | [facility] | | | | | mmol/L | [facility] | | | | | | MEDICAL | | | | | | CENTER - | | | | | | LABORATORY | | + + + + + + | K | 4.1 | 3.5 - 5.1 | [facility] | | | | | mmol/L | [facility] | | | | | | MEDICAL | | | | | | CENTER - | | | | | | LABORATORY | | + + + + + + | Cl | 89 (L) | 98 - 109 mmol/L | [facility] | | | | | | [facility] | | | | | | MEDICAL | | | | | | CENTER - | | | | | | LABORATORY | | + + + + + + | CO2 | 21 (L) | 24 - 31 mmol/L | [facility] | | | | | | [facility] | | | | | | MEDICAL | | | | | | CENTER - | | | | | | LABORATORY | | + + + + + + | Anion Gap | 17 (H) | 3 - 16 mmol/L | [facility] | | | | | | [facility] | | | | | | MEDICAL | | | | | | CENTER - | | | | | | LABORATORY | | + + + + + + | Glucose | 151 (H) | 70 - 109 mg/dL | [facility] | | | | | | [facility] | | | | | | MEDICAL | | | | | | CENTER - | | | | | | LABORATORY | | + + + + + + | BUN | 161 (HH)Comment: | 7 - 18 mg/dL | [facility] | [facility] | | Critical Result called | | [facility] | | | | to and read back by | | MEDICAL | | | | Natasha Sosa on | | CENTER - | | | | 06/28/2018 at 5:07 by | | LABORATORY | | | | Young Herring. | | | | + + + + + + | Creatinine | 5.56 (H) | 0.60 - 1.30 | [facility] | | | | | mg/dL | [facility] | | | | | | MEDICAL | | | | | | CENTER - | | | | | | LABORATORY | | + + + + + + | eGFR if not | 10 (L)Comment: | >=60 | [facility] | | | | GLOMERULAR FILTRATION | mL/min/1.73m2 | [facility] | | | [place] | RATE,ESTIMATED | | MEDICAL | | | | mL/min/1.37q7Mcus than | | CENTER - | | [...] + + + + | Calcium | 8.0 (L) | 8.3 - 10.5 | [facility] | | | | | mg/dL | [facility] | | | | | | MEDICAL | | | | | | CENTER - | | | | | | LABORATORY | | + + + + + + | Albumin | 2.8 (L) | 3.2 - 5.0 g/dL | [facility] | | | | | | [facility] | | | | | | MEDICAL | | | | | | CENTER - | | | | | | LABORATORY | | + + + + + + | Bilirubin | 2.1 (H) | 0.1 - 1.5 mg/dL | [facility] | | | Total | | | [facility] | | | | | | MEDICAL | | | | | | CENTER - | | | | | | LABORATORY | | + + + + + + | Total | 6.7 | 6.0 - 7.8 g/dL | [facility] | | | Protein | | | [facility] | | | | | | MEDICAL | | | | | | CENTER - | | | | | | LABORATORY | | + + + + + + | AST | 60 (H) | 10 - 42 U/L | [facility] | | | | | | [facility] | | | | | | MEDICAL | | | | | | CENTER - | | | | | | LABORATORY | | + + + + + + | ALT | 30 | 6 - 45 U/L | [facility] | | | | | | [facility] | | | | | | MEDICAL | | | | | | CENTER - | | | | | | LABORATORY | | + + + + + + | Alkaline | 187 (H) | 40 - 110 U/L | [facility] | | | Phosphatase | | | [facility] | | | | | | MEDICAL | | | | | | CENTER - | | | | | | LABORATORY | | + + + + + + | Globulin | 3.9 (H) | 2.1 - 3.8 g/dL | [facility] | | | | | | [facility] | | | | | | MEDICAL | | | | | | CENTER - | | | | | | LABORATORY | | + + + + + + | Albumin/Becky | 0.7 (L) | 0.8 - 2.0 | [facility] | | | bulin Ratio | | | [facility] | | | | | | MEDICAL | | | | | | CENTER - | | | | | | LABORATORY | | + + + + + + | BUN/Creatin | 29.0 | | [facility] | | | ine [...] [address] | [place] | [phone] | | [facility] | | [address] | | | - LABORATORY | | | | + + + + + POC Glucose (06/27/2018 9:15 PM PST) + +---------+ + + + | Component | Value | Ref Range | Performed | Pathologist | | | | | At | Signature | + +---------+ + + + | Glucose, | 149 (H) | 70 - 109 mg/dL | [...] [address] | [place] | [phone] | | [facility] | | [address] | | | - LABORATORY | | | | + + + + + POC Glucose (06/27/2018 4:34 PM PST) + +---------+ + + + | Component | Value | Ref Range | Performed | Pathologist | | | | | At | Signature | + +---------+ + + + | Glucose, | 123 (H) | 70 - 109 mg/dL | [...] + | [facility] | [address] | [place] | [phone] | | [facility] | | [address] | | | - LABORATORY | | | | + + + + + Basic Metabolic Panel (06/27/2018 4:34 PM PST) + + + + + + | Component | Value | Ref Range | Performed | Pathologist | | | | | At | Signature | + + + + + + | Na | 127 (L) | 136 - 149 | [facility] | | | | | mmol/L | [facility] | | | | | | MEDICAL | | | | | | CENTER - | | | | | | LABORATORY | | + + + + + + | K | 3.9 | 3.5 - 5.1 | [facility] | | | | | mmol/L | [facility] | | | | | | MEDICAL | | | | | | CENTER - | | | | | | LABORATORY | | + + + + + + | Cl | 87 (L) | 98 - 109 mmol/L | [facility] | | | | | | [facility] | | | | | | MEDICAL | | | | | | CENTER - | | | | | | LABORATORY | | + + + + + + | CO2 | 24 | 24 - 31 mmol/L | [facility] [...] + | Glucose | 136 (H) | 70 - 109 mg/dL | [facility] | | | | | | [facility] | | | | | | MEDICAL | | | | | | CENTER - | | | | | | LABORATORY | | + + + + + + | BUN | 157 (HH)Comment: | 7 - 18 mg/dL | [facility] | | | | Consistent with previous | | [facility] | | | | results. | | MEDICAL | | | | | | CENTER - | | | | | | LABORATORY | | + + + + + + | Creatinine | 5.32 (H) | 0.60 - 1.30 | [facility] | | | | | mg/dL | [facility] | | | | | | MEDICAL | | | | | | CENTER - | | | | | | LABORATORY | | + + + + + + | eGFR if not | 11 (L)Comment: | >=60 | [facility] | | | | GLOMERULAR FILTRATION | mL/min/1.73m2 | [facility] | | | [place] | RATE,ESTIMATED | | MEDICAL | | | | mL/min/1.37m5Ocis than | | CENTER - | | [...] + + + + | Calcium | 8.0 (L) | 8.3 - 10.5 | [facility] | | | | | mg/dL | [facility] | | | | | | MEDICAL | | | | | | CENTER - | | | | | | LABORATORY | | + + + + + + | BUN/Creatin | 29.5 | | [facility] | | | ine [...] + | [facility] | [address] | [place] | [phone] | | [facility] | | [address] | | | - LABORATORY | | | | + + + + + Vancomycin Level (06/27/2018 4:34 PM PST) + +-------+ + + + | [...] +-------+ + + + | Vancomycin | 12.2 | <=20.0 ug/mL | [facility] | | | Random | | | [facility] | | [...] + | [facility] | [address] | [place] | [phone] | | [facility] | | [address] | | | - LABORATORY | | | | + + + + + POC Glucose (06/27/2018 11:32 AM PST) + +---------+ + + + | Component | Value | Ref Range | Performed | Pathologist | | | | | At | Signature | + +---------+ + + + | Glucose, | 112 (H) | 70 - 109 mg/dL | [...] [facility] | [address] | [place] | [phone] | | [facility] | | [address] | | | - LABORATORY | | | | + + + + + Blood Gas, Arterial (06/27/2018 10:38 AM PST) + + + + + + | Component | Value | Ref Range | Performed | Pathologist | | | | | At | Signature | + + + + + + | pH, | 7.26 (L) | 7.35 - 7.45 | [facility] | | | Arterial | | | [facility] | | | | | | MEDICAL | | | | | | CENTER - | | | | | | LABORATORY | | + + + + + + | pCO2, | 57 (H) | 35 - 45 mm Hg | [facility] | | | Arterial | | | [facility] | | | | | | MEDICAL | | | | | | CENTER - | | | | | | LABORATORY | | + + + + + + | pO2, | 91 | >=60 mm Hg | [facility] | | | Arterial | | | [facility] | | | | | | MEDICAL | | | | | | CENTER - | | | | | | LABORATORY | | + + + + + + | HCO3, | 24.9 (H) | 18.0 - 23.0 | [facility] | | | Arterial | | mmol/L | [facility] | | | | | | MEDICAL | | | | | | CENTER - | | | | | | LABORATORY | | + + + + + + | Base | -2.5 (L) | -2.0 - 2.0 | [facility] | | | Excess, | | mmol/L | [facility] | | | Arterial | | | MEDICAL | | | | | | CENTER - | | | | | | LABORATORY | | + + + + + + | O2 | 96 | 95 - 98 % | [facility] | | | Saturation, | | | [facility] | | | Arterial | | | MEDICAL | | | | | | CENTER - | | | | | | LABORATORY | | + + + + + + | Hemoglobin, | 12.9 (L) | 13.5 - 18 g/dL | [facility] | | | Arterial | | | [facility] | | | | | | MEDICAL | | | | | | CENTER - | | | | | | LABORATORY | | + + + + + + | Oxyhemoglob | 93.0 | 90.0 - 100.0 % | [facility] | | | in, | | | [facility] | | | Arterial | | | MEDICAL | | | | | | CENTER - | | | | | | LABORATORY | | + + + + + + | Methemoglob | 1.3 | 0.0 - 1.5 % | [facility] | | | in, | | | [facility] | | | Arterial | | | MEDICAL | | | | | | CENTER - | | | | | | LABORATORY | | + + + + + + | Carboxyhemo | 1.7 (H) | 0.0 - 1.5 % | [facility] | | | globin, | | | [facility] | | | Arterial | | | MEDICAL | | | | | | CENTER - | | | | | | LABORATORY | | + + + + + + | FiO2 | 60.0 | % | [facility] | | | | | | [facility] | | | | | | MEDICAL | | | | | | CENTER - | | | | | | LABORATORY | | + + + + + + | pH Temp | 7.26 | | [facility] | | | Corrected, | | | [facility] | | | Arterial | | | MEDICAL | | | | | | CENTER - | | | | | | LABORATORY | | + + + + + + | pCO2 Temp | 57 | mmHg | [facility] | | | Corrected, | | | [facility] | | | Arterial | | | MEDICAL | | | | | | CENTER - | | | | | | LABORATORY | | + + + + + + | pO2 Temp | 91 | mmHg | [facility] | | | Corrected, | | | [facility] | | | Arterial | | | MEDICAL | | | | | | CENTER - | | | | | | LABORATORY | | + + + + + + | PATIENT | 37.0 | | [facility] | | | TEMP | | | [facility] | | | | | | MEDICAL | | | | | | CENTER - | | | | | | LABORATORY | | + + + + + + + + | Specimen | + + | Blood - Artery | | sample (specimen) | + + + + + | Narrative | Performed At | + + + | Hi flow 40lpm 60% | [facility] | | | [facility] | | | [facility] | | | - LABORATORY | + + + + + + + + | Performing | Address | City/State/Zipcode | Phone Number | | Organization | | | | + + + + + | [facility] | [address] | [place] | [phone] | | [facility] | | [address] | | | - LABORATORY | | | | + + + + + Culture, Respiratory, Lower, Smear (06/27/2018 9:38 AM PST) + + + + + + | Component | Value | Ref Range | Performed | Pathologist | | | | | At | Signature | + + + + + + | Culture | No pathogens isolated | | [facility] | | | | | | [facility] | | | [facility] - | | | | | | LABORATORY | | + + + + + + | Culture | 2+ Usual Respiratory | | [facility] | | | | [place] | | [facility] | | | [...] + | Gram Stain | 1+ Gram positive cocci | | [facility] | [...] [address] | [place] | [phone] | | [facility] | | [address] | | | - LABORATORY | | | | + + + + + POC Glucose (06/27/2018 7:01 AM PST) + +-------+ + + + | Component | Value | Ref Range | Performed | Pathologist | | | | | At | Signature | + +-------+ + + + | Glucose, | 87 | 70 - 109 mg/dL | [facility] [...] [address] | [place] | [phone] | | [facility] | | [address] | | | - LABORATORY | | | | + + + + + XR Chest AP Portable (06/27/2018 2:58 AM PST) + + | Specimen | + + | | + + + + + | Narrative | Performed At | + + + | CLINICAL INFORMATION: hypoxia. COMPARISON: None available. | [facility] | | FINDINGS: Portable frontal chest radiograph Lungs: Mixed | | | interstitial and alveolar opacities are noted in a perihilar and | | | lower lobe predominant distribution, right greater than left. | | | Asymmetric opacities at the right lung base. No pleural effusion | | | or pneumothorax. Heart/mediastinum: Stable cardiomegaly. Median | | | sternotomy changes. Left chest multi lead cardiac device. | | | Bones: No acute osseous abnormality appreciated. IMPRESSION - | | | Cardiomegaly with with pulmonary edema. The asymmetric opacities at | | | the right lung base may reflect atelectasis and/or pneumonia. | | | Dictated and Signed by: Sheldon Gatica MD Electronically signed: | | | 06/27/2018 8:53 AM | | + + + + + | Procedure Note | + + | Lalo, Rad Results In - 06/27/2018 8:56 AM PST | | CLINICAL INFORMATION: hypoxia. | | | | COMPARISON: None available. | | | | FINDINGS: | | Portable frontal chest radiograph | | | | Lungs: Mixed interstitial and alveolar opacities are noted in a perihilar and | | lower lobe predominant distribution, right greater than left. Asymmetric | | opacities at the right lung base. No pleural effusion or pneumothorax. | | | | Heart/mediastinum: Stable cardiomegaly. Median sternotomy changes. Left chest | | multi lead cardiac device. | | | | Bones: No acute osseous abnormality appreciated. | | | | IMPRESSION - | | Cardiomegaly with with pulmonary edema. The asymmetric opacities at the right | | lung base may reflect atelectasis and/or pneumonia. | | | | Dictated and Signed by: Sheldon Gatica MD | | Electronically signed: 06/27/2018 8:53 AM | + + + +---------+ + + | Performing | Address | City/State/Zipcode | Phone Number | | Organization | | | | + +---------+ + + | [facility] | | | | + +---------+ + + Lactic Acid (06/27/2018 2:30 AM PST) + +-------+ + + + | Component | Value | Ref Range | Performed | Pathologist | | | | | At | Signature | + +-------+ + + + | Lactate | 0.7 | 0.5 - 2.2 | [facility] | | | | | [...] ST. | [address] | [place], [place] | [phone] | | [facility] | | [address] | | | - LABORATORY | | | | + + + + + B Type Natriuretic Peptide (06/27/2018 2:30 AM PST) + +---------+ + + + | Component | Value | Ref Range | Performed | Pathologist | | | | | At | Signature | + +---------+ + + + | BNP | 410 (H) | <100 pg/mL | [facility] | | | | | [...] [address] | [place] | [phone] | | [facility] | | [address] | | | - LABORATORY | | | | + + + + + GGT (06/27/2018 2:30 AM PST) + +--------+ + + + | Component | Value | Ref Range | Performed | Pathologist | | | | | At | Signature | + +--------+ + + + | GGT | 80 (H) | 7 - 50 U/L | [facility] | | | | [facility] | | | | | | [facility] | | | | | | CENTER - | | | | | | LABORATORY | | + +--------+ + + + + + | Specimen | + + | Blood | + + + + + + + | Performing | Address | City/State/Zipcode | Phone Number | | Organization | | | | + + + + + | [facility] | [address] | [place] | [phone] | | [facility] | | [address] | | | - LABORATORY | | | | + + + + + Mycoplasma Ab, IgG and IgM (06/27/2018 2:30 AM PST) + + + + + + | Component | Value | Ref Range | Performed | Pathologist | | | | | At | Signature | + + + + + + | Mycoplasma | 1371 (H)Comment: | 0 - 99 U/mL | [facility] | | | pneumoniae | | | LAB [facility] | | | Ab, IgG | Negative: | | - BKR | | | | <100 | | | | | | | | | | | | | | | | | | Indeterminate: 100 - 320 | | | | | | | | | | | | | | | | | | Positive: | | | | | | >320The reference | | | | | | interval established is | | | | | | intended as abaseline | | | | | | only. Values >100 may | | | | | | indicate a | | | | | | recentinfection with | | | | | | Mycoplasma pneumoniae | | | | | | and need to beconfirmed | | | | | | either by a positive IgM | | | | | | result and/or | | | | | | anadditional specimen | | | | | | drawn 2-4 weeks later | | | | | | showing asignificant | | | | | | increase in antibody | | | | | | levels. | | | | + + + + + + | Mycoplasma | <770Comment: | 0 - 769 U/mL | [facility] | | | pneumoniae | | | LAB [facility] | | | Ab, IgM | Negative | | - BKR | | | | | | | | | | <770Clinically | | | | | | significant amount of M. | | | | | | pneumoniae antibodynot | | | | | | detected. | | | | | | | | | | | | Low Positive 770 | | | | | | - 950M. pneumoniae | | | | | | specific IgM | | | | | | presumptively detected. | | | | | | Itis recommended that | | | | | | another sample be | | | | | | collected 1-2weeks later | | | | | | to assure reactivity. | | | | | | | | | | | | | | | | | | Positive | | | | | | >950Highly significant | | | | | | amount of M. pneumoniae | | | | | | specificIgM antibody | | | | | | detected. | | | | + + + + + + + + | Specimen | + + | Blood | + + + + + | Narrative | Performed At | + + + | Performed at: 01 - [facility] [address] [place] [address], | REFERENCE LAB | | [place], [place] [id number] [employer] Supervisor: Judy Tovar MD, Phone: | [facility] | | [phone] | | + + + + + + + + | Performing | Address | City/State/Zipcode | Phone Number | | Organization | | | | + + + + + | REFERENCE LAB | [address] | [place] [address] | [phone] | | [facility] | [address] | | | + + + + + Procalcitonin (06/27/2018 2:30 AM PST) + + + + + + | Component | Value | Ref Range | Performed | Pathologist | | | | | At | Signature | + + + + + + | Procalciton | 32.77 ()Comment: | <=0.50 ng/mL | [facility] | | | in | Consistent with previous | | [facility] | | | | results. | | MEDICAL | | | | [address] | [place] | [phone] | | [facility] | | [address] | | | - LABORATORY | | | | + + + + + PTT (06/27/2018 2:30 AM PST) + +-------+ + + + | Component | Value | Ref Range | Performed | Pathologist | | | | | At | Signature | + +-------+ + + + | aPTT | 34 | 22 - 36 seconds | [facility] [...] + | [facility] | [address] | [place] | [phone] | | [facility] | | [address] | | | - LABORATORY | | | | + + + + + Protime INR (06/27/2018 2:30 AM PST) + + + + + + | Component | Value | Ref Range | Performed | Pathologist | | | | | At | Signature | + + + + + + | Prothrombin | 14.1 (H) | 11.3 - 13.9 | [facility] [...] | | | Anticoagulation Range: | | [facility] | | | | 2.0 - 3.0High [...] [address] | [place] | [phone] | | [facility] | | [address] | | | - LABORATORY | | | | + + + + + Phosphorus (06/27/2018 2:30 AM PST) + + + + + + | Component | Value | Ref Range | Performed | Pathologist | | | | | At | Signature | + + + + + + | Phosphorus | 8.9 ()Comment: | 2.5 - 4.6 mg/dL | [facility] | | | | Critical Result called | | [facility] | | | | to and read back by | | MEDICAL | | | | Natasha Sosa on | | CENTER - | | | | 06/27/2018 at 2:54 by | | LABORATORY | | | | Young Herring. | | | | + + + + + + + + | Specimen | + + | Blood | + + + + + + + | Performing | Address | City/State/Zipcode | Phone Number | | Organization | | | | + + + + + | [facility] | [address] | [place] | [phone] | | [facility] | | [address] | | | - LABORATORY | | | | + + + + + Magnesium (06/27/2018 2:30 AM PST) + +-------+ + + + | Component | Value | Ref Range | Performed | Pathologist | | | | | At | Signature | + +-------+ + + + | Magnesium | 1.8 | 1.8 - 2.5 mg/dL | [facility] | | | | | | ST. [...] + | [facility] | [address] | [place] | [phone] | | [facility] | | [address] | | | - LABORATORY | | | | + + + + + Comprehensive Metabolic Panel (06/27/2018 2:30 AM PST) + + + + + + | Component | Value | Ref Range | Performed | Pathologist | | | | | At | Signature | + + + + + + | Na | 125 (L) | 136 - 149 | [facility] | | | | | mmol/L | [facility] | | | | | | MEDICAL | | | | | | CENTER - | | | | | | LABORATORY | | + + + + + + | K | 3.6 | 3.5 - 5.1 | [facility] | | | | | mmol/L | [facility] | | | | | | MEDICAL | | | | | | CENTER - | | | | | | LABORATORY | | + + + + + + | Cl | 86 (L) | 98 - 109 mmol/L | [facility] | | | | | | [facility] | | | | | | MEDICAL | | | | | | CENTER - | | | | | | LABORATORY | | + + + + + + | CO2 | 24 | 24 - 31 mmol/L | [facility] | | | | | | [facility] | | | | | | MEDICAL | | | | | | CENTER - | | | | | | LABORATORY | | + + + + + + | Anion Gap | 15 | 3 - 16 mmol/L | [facility] | | | | | | [facility] | | | | | | MEDICAL | | | | | | CENTER - | | | | | | LABORATORY | | + + + + + + | Glucose | 98 | 70 - 109 mg/dL | [facility] | | | | | | [facility] | | | | | | MEDICAL | | | | | | CENTER - | | | | | | LABORATORY | | + + + + + + | BUN | 159 ()Comment: | 7 - 18 mg/dL | [facility] | | | | Critical Result called | | [facility] | | | | to and read back by | | MEDICAL | | | | Natasha Sosa on | | CENTER - | | | | 06/27/2018 at 2:54 by | | LABORATORY | | | | Young Herring. | | | | + + + + + + | Creatinine | 6.05 (H) | 0.60 - 1.30 | [facility] | | | | | mg/dL | [facility] | | | | | | MEDICAL | | | | | | CENTER - | | | | | | LABORATORY | | + + + + + + | eGFR if not | 9 (L)Comment: GLOMERULAR | >=60 | [facility] | | | | FILTRATION | mL/min/1.73m2 | [facility] | | | [place] | RATE,ESTIMATED | | MEDICAL | | | | mL/min/1.32k3Zjfx than | | CENTER - | | [...] + + + + | Calcium | 7.7 (L) | 8.3 - 10.5 | [facility] | | | | | mg/dL | [facility] | | | | | | MEDICAL | | | | | | CENTER - | | | | | | LABORATORY | | + + + + + + | Albumin | 2.9 (L) | 3.2 - 5.0 g/dL | [facility] | | | | | | [facility] | | | | | | MEDICAL | | | | | | CENTER - | | | | | | LABORATORY | | + + + + + + | Bilirubin | 2.2 (H) | 0.1 - 1.5 mg/dL | [facility] | | | Total | | | [facility] | | | | | | MEDICAL | | | | | | CENTER - | | | | | | LABORATORY | | + + + + + + | Total | 7.0 | 6.0 - 7.8 g/dL | [facility] | | | Protein | | | [facility] | | | | | | MEDICAL | | | | | | CENTER - | | | | | | LABORATORY | | + + + + + + | AST | 92 (H) | 10 - 42 U/L | [facility] | | | | | | [facility] | | | | | | MEDICAL | | | | | | CENTER - | | | | | | LABORATORY | | + + + + + + | ALT | 35 | 6 - 45 U/L | [facility] | | | | | | [facility] | | | | | | MEDICAL | | | | | | CENTER - | | | | | | LABORATORY | | + + + + + + | Alkaline | 191 (H) | 40 - 110 U/L | [facility] | | | Phosphatase | | | [facility] | | | | | | MEDICAL | | | | | | CENTER - | | | | | | LABORATORY | | + + + + + + | Globulin | 4.1 (H) | 2.1 - 3.8 g/dL | [facility] | | | | | | [facility] | | | | | | MEDICAL | | | | | | CENTER - | | | | | | LABORATORY | | + + + + + + | Albumin/Becky | 0.7 (L) | 0.8 - 2.0 | [facility] | | | bulin Ratio | | | [facility] | | | | | | MEDICAL | | | | | | CENTER - | | | | | | LABORATORY | | + + + + + + | BUN/Creatin | 26.3 | | [facility] | | | ine [...] | + + + + + | [facility] | [address] | [place] | [phone] | | [facility] | | [address] | | | - LABORATORY | | | | + + + + + CBC with Differential (06/27/2018 2:30 AM PST) + + + + + + | Component | Value | Ref Range | Performed | Pathologist | | | | | At | Signature | + + + + + + | WBC | 8.6 | 4.0 - 11.0 K/uL | [facility] | | | | | | [facility] | | | | | | MEDICAL | | | | | | CENTER - | | | | | | LABORATORY | | + + + + + + | RBC | 3.90 (L) | 4.30 - 5.70 | [facility] | | | | | M/uL | . [facility] | | | | | | MEDICAL | | | | | | CENTER - | | | | | | LABORATORY | | + + + + + + | Hemoglobin | 12.5 (L) | 13.5 - 18.0 | [facility] | | | | | g/dL | [facility] | | | | | | MEDICAL | | | | | | CENTER - | | | | | | LABORATORY | | + + + + + + | Hematocrit | 37.0 (L) | 40.0 - 51.0 % | [facility] | | | | | | [facility] | | | | | | MEDICAL | | | | | | CENTER - | | | | | | LABORATORY | | + + + + + + | MCV | 94.9 | 83.0 - 101.0 fL | [facility] | | | | | | [facility] | | | | | | MEDICAL | | | | | | CENTER - | | | | | | LABORATORY | | + + + + + + | MCH | 32.1 | 28.0 - 35.0 pg | [facility] | | | | | | [facility] | | | | | | MEDICAL | | | | | | CENTER - | | | | | | LABORATORY | | + + + + + + | MCHC | 33.8 | 32.0 - 36.0 | [facility] | | | | | g/dL | [facility] | | | | [...] + + + + | RDW-SD | 55.0 (H) | 35.1 - 46.3 fL | [facility] | | | | | | [facility] | | | | | | MEDICAL | | | | | | CENTER - | | | | | | LABORATORY | | + + + + + + | Platelet | 84 (L) | 140 - 440 K/uL | [facility] | | | Count | | | [facility] | | | | | | MEDICAL | | | | | | CENTER - | | | | | | LABORATORY | | + + + + + + | MPV | 12.2 | 6.5 - 12.4 fL | [facility] | | | | | | [facility] | | | | | | MEDICAL | | | | | | CENTER - | | | | | | LABORATORY | | + + + + + + | Immature | 7.4Comment: Low PLT + | 0.9 - 11.2 [...] + + + + | % | 78.9 | 45.0 - 82.0 % | [facility] | | | Neutrophils | | | [facility] | | | | | | MEDICAL | | | | | | CENTER - | | | | | | LABORATORY | | + + + + + + | % | 10.2 (L) | 20.0 - 45.0 % | [facility] | | | Lymphocytes | | | [facility] | | | | | | MEDICAL | | | | | | CENTER - | | | | | | LABORATORY | | + + + + + + | % Monocytes | 10.2 | 4.0 - 12.0 % | [facility] | | | | | | [facility] | | | | | | MEDICAL | | | | | | CENTER - | | | | | | LABORATORY | | + + + + + + | % | 0.1 | 0.0 - 5.0 % | [facility] [...] + + + | % Immature | 0.4 | 0.0 - 0.4 % | [facility] | | | Granulocyte | | | [facility] | | | s | | | MEDICAL | | | | | | CENTER - | | | | | | LABORATORY | | + + + + + + | Absolute | 6.75 | 1.80 - 8.50 | [facility] | | | Neutrophils | | K/uL | [facility] | | | | | | MEDICAL | | | | | | CENTER - | | | | | | LABORATORY | | + + + + + + | Absolute | 0.87 | 0.60 - 3.20 | [facility] | | | Lymphocytes | | K/uL | [facility] | | | | | | MEDICAL | | | | | | CENTER - | | | | | | LABORATORY | | + + + + + + | Absolute | 0.87 | 0.00 - 1.00 | [facility] | | | Monocytes | | K/uL | [facility] | | | | | | MEDICAL | | | | | | CENTER - | | | | | | LABORATORY | | + + + + + + | Absolute | 0.01 | 0.00 - 0.40 | [facility] | [...] | [facility] | | | | | WBC's | [facility] | | | | [...] + | [facility] | [address] | [place] | [phone] | | [facility] | | [address] | | | - LABORATORY | | | | + + + + + Respiratory pathogen panel, NAAT (06/26/2018 11:59 PM PST) + + + + + + | Component | Value | Ref Range | Performed | Pathologist | | | | | At | Signature | + + + + + + | ADENOVIRUS | Not Detected | Not Detected | REFERENCE | | | | | | LAB [facility] | | | | | | - BKR | | + + + + + + | Coronavirus | Not Detected | Not Detected | REFER[facility] | | | HKU1 | | | [facility] | | | | | | - BKR | | + + + + + + | Coronavirus | Not Detected | Not Detected | REFERENCE | | | NL63 | | | [facility] | | | | | | - BKR | | + + + + + + | Coronavirus | Not Detected | Not Detected | REFERENCE | | | 229E | | | LAB [facility] | | | | | | - BKR | | + + + + + + | Coronavirus | Not Detected | Not Detected | REFER[facility] | | | OC43 | | | [facility] | | | | | | - BKR | | + + + + + + | Human | Not Detected | Not Detected | REFER[facility] | | | Metapneumov | | | [facility] | | | irus | | | - BKR | | + + + + + + | Rhinovirus/ | Not Detected | Not Detected | REFER[facility] | | | Enterovirus | | | [facility] | | | | | | - BKR | | + + + + + + | Influenza a | Not Detected | Not Detected | REFER[facility] | | | | | | [facility] | | | | | | - BKR | | + + + + + + | Influenza | Not Detected | Not Detected | [facility] | | | Virus A H1 | | | [facility] | | | RNA | | | - BKR | | + + + + + + | Influenza A | Not Detected | Not Detected | REFERENCE | | | 2009 H1 | | | LAB [facility] | | | | | | - BKR | | + + + + + + | Influenza | Not Detected | Not Detected | REFERENCE | | | Virus A H3 | | | [facility] | | | RNA | | | - BKR | | + + + + + + | Influenza B | Not Detected | Not Detected | REFER[facility] | | | | | | LAB [facility] | | | | | | - BKR | | + + + + + + | Parainfluen | Not Detected | Not Detected | REFERENCE | | | za 1 | | | [facility] | | | | | | - BKR | | + + + + + + | Parainfluen | Not Detected | Not Detected | REFERENCE | | | za 2 | | | [facility] | | | | | | - BKR | | + + + + + + | Parainfluen | Not Detected | Not Detected | REFERENCE | | | za 3 | | | [facility] | | | | | | - BKR | | + + + + + + | Parainfluen | Not Detected | Not Detected | REFERENCE | | | za 4 | | | [facility] | | | | | | - BKR | | + + + + + + | RSV | Not Detected | Not Detected | REFER[facility] | | | | | | [facility] | | | | | | - BKR | | + + + + + + | Bordetella | Not Detected | Not Detected | [facility]FER[facility] | | | pertussis | | | [facility] | | | DNA | | | - BKR | | + + + + + + | Chlamydophi | Not Detected | Not Detected | REFERENCE | | | la | | | [facility] | | | pneumoniae | | | - BKR | | | DNA | | | | | + + + + + + | Mycoplasma | Not Detected | Not Detected | REFER[facility] | | | pneumoniae | | | [facility] | | | DNA | | | - BKR | | + + + + + + + + | Specimen | + + | Tissue - Entire | | nasopharynx (body | | structure) | + + + + + | Narrative | Performed At | + + + | Performed at: 01 - [facility] [place] [address], | REFERENCE LAB | | [place], [place] [id number] [employer] Supervisor: Salazar Ocampo MD, Phone: | [facility] | | [phone] | | + + + + + + + + | Performing | Address | City/State/Zipcode | Phone Number | | Organization | | | | + + + + + | REFERENCE LAB | [address] | [place] [address] | [phone] | | [facility] | [address] | | | + + + + + Respiratory Virus Panel, NAAT (06/26/2018 11:59 PM PST) + + + + + + | Component | Value | Ref Range | Performed | Pathologist | | | | | At | Signature | + + + + + + | Respiratory | Negative | Negative | REFERENCE | | | Syncytial | | | [facility] | | | Virus B | | | - BKR | | + + + + + + | Parainfluen | Negative | Negative | REFERENCE | | | za Virus 1 | | | [facility] | | | RNA | | | - BKR | | + + + + + + | Parainfluen | Negative | Negative | REFERENCE | | | za Virus 2 | | | [facility] | | | RNA | | | - BKR | | + + + + + + | Human | Negative | Negative | REFERENCE | | | metapneumov | | | [facility] | | | irus RNA | | | - BKR | | + + + + + + | Respiratory | Negative | Negative | REFERENCE | | | Syncytial | | | [facility] | | | Virus A | | | - BKR | | + + + + + + | Influenza A | Negative | Negative | REFERENCE | | | RNA | | | LAB [facility] | | | | | | - BKR | | + + + + + + | Influenza B | Negative | Negative | REFERENCE | | | | | | LAB [facility] | | | | | | - BKR | | + + + + + + | Parainfluen | Negative | Negative | REFERENCE | | | za 3 | | | [facility] | | | | | | - BKR | | + + + + + + | Rhinovirus/ | Negative | Negative | REFERENCE | | | Enterovirus | | | [facility] | | | | | | - BKR | | + + + + + + | Adenovirus | Negative | Negative | REFERENCE | | | | | | LAB [facility] | | | | | | - BKR | | + + + + + + + + | Specimen | + + | Tissue - Entire | | nasopharynx (body | | structure) | + + + + + | Narrative | Performed At | + + + | Performed at: 01 - [facility] [address], | REFERENCE LAB | | [place] [id number] [employer] Supervisor: Judy Tovar MD, Phone: | [facility] [place] | | [phone] | | + + + + + + + + | Performing | Address | City/State/Zipcode | Phone Number | | Organization | | | | + + + + + | REFERENCE LAB | [address] | [place] [address] | [phone] | | [facility] | [address] | | | + + + + + POC Glucose (06/26/2018 8:25 PM PST) + +-------+ + + + | Component | Value | Ref Range | Performed | Pathologist | | | | | At | Signature | + +-------+ + + + | Glucose, | 83 | 70 - 109 mg/dL | [facility] + | [facility] | [address] | [place] | [phone] | | [facility] | | [address] | | | - LABORATORY | | | | + + + + + CK Total (06/26/2018 5:50 PM PST) + +---------+ + + + | Component | Value | Ref Range | Performed | Pathologist | | | | | At | Signature | + +---------+ + + + | CK TOTAL | 765 (H) | 22 - 269 U/L | [facility] | | | | | [...] ST. | [address] | [place] | [phone] | | [facility] | | [address] | | | - LABORATORY | | | | + + + + + Basic Metabolic Panel (06/26/2018 5:50 PM PST) + + + + + + | Component | Value | Ref Range | Performed | Pathologist | | | | | At | Signature | + + + + + + | Na | 125 (L) | 136 - 149 | [facility] | | | | | mmol/L | [facility] | | | | | | MEDICAL | | | | | | CENTER - | | | | | | LABORATORY | | + + + + + + | K | 3.6 | 3.5 - 5.1 | [facility] | | | | | mmol/L | [facility] | | | | | | MEDICAL | | | | | | CENTER - | | | | | | LABORATORY | | + + + + + + | Cl | 83 (L) | 98 - 109 mmol/L | [facility] | | | | | | [facility] | | | | | | MEDICAL | | | | | | CENTER - | | | | | | LABORATORY | | + + + + + + | CO2 | 26 | 24 - 31 mmol/L | [facility] [...] + + + + | Glucose | 114 (H) | 70 - 109 mg/dL | [facility] | | | | | | [facility] | | | | | | MEDICAL | | | | | | CENTER - | | | | | | LABORATORY | | + + + + + + | BUN | 161 (HH)Comment: | 7 - 18 mg/dL | [facility] | | | | Consistent with previous | | [facility] | | | | results. | | MEDICAL | | | | | | CENTER - | | | | | | LABORATORY | | + + + + + + | Creatinine | 6.71 (H) | 0.60 - 1.30 | [facility] | | | | | mg/dL | [facility] | | | | | | MEDICAL | | | | | | CENTER - | | | | | | LABORATORY | | + + + + + + | eGFR if not | 8 (L)Comment: GLOMERULAR | >=60 | [facility] | | | | FILTRATION | mL/min/1.73m2 | [facility] | | | [place] | RATE,ESTIMATED | | MEDICAL | | | | mL/min/1.96x3Ralf than | | CENTER - | | [...] + + + + | Calcium | 7.6 (L) | 8.3 - 10.5 | [facility] | | | | | mg/dL | [facility] | | | | | | MEDICAL | | | | | | CENTER - | | | | | | LABORATORY | | + + + + + + | BUN/Creatin | 24.0 | | [facility] | | | ine [...] + | [facility] | [address] | [place] | [phone] | | [facility] | | [address] | | | - LABORATORY | | | | + + + + + POC Glucose (06/26/2018 5:13 PM PST) + +---------+ + + + | [...] ST. | [address] | [place] | [phone] | | [facility] | | [address] | | | - LABORATORY | | | | + + + + + XR Chest AP Portable (06/26/2018 4:27 PM PST) + + | Specimen | + + | | + + + + + | Narrative | Performed At | + + + | EXAM: XR CHEST AP PORTABLE dated 06/26/2018 4:27 PM HISTORY: | [facility] | | Confirm placement position of PICC Comparison: 06/26/2018 | | | TECHNIQUE: A single portable view of the chest. FINDINGS: | | | Interval placement of a right approach PICC line. On the final image | | | obtained at 1615 hours the tip of the catheter is near the | | | cavoatrial junction. There is persistent cardiomegaly and | | | prominence of pulmonary vasculature. Grossly unchanged positioning | | | of atrial and ventricular leads from an implanted device on the left | | | chest. Asymmetric airspace disease in the right lower lung may be | | | atelectasis or infiltrate. IMPRESSION - PICC catheter tip | | | near the cavoatrial junction. Dictated and Signed by: Chet Shin | | | MD [place] Electronically signed: 06/26/2018 4:35 PM | | + + + + + | Procedure Note | + + | Lalo, Rad Results In - 06/26/2018 4:38 PM PST EXAM: XR CHEST AP PORTABLE dated | | 06/26/2018 4:27 PMHISTORY: Confirm placement position of PICCComparison: | | 06/26/2018TECHNIQUE: A single portable view of the chest.FINDINGS:Interval placement of a | | right approach PICC line. On the final image obtainedat 1615 hours the tip of the | | catheter is near the cavoatrial junction.There is persistent cardiomegaly and prominence | | of pulmonary vasculature. Grossly unchanged positioning of atrial and ventricular leads | | from an implanteddevice on the left chest. Asymmetric airspace disease in the right | | lower lungmay be atelectasis or infiltrate. IMPRESSION -PICC catheter tip near the | | cavoatrial junction.Dictated and Signed by: Chet Cuevas MD Electronically signed: | | 06/26/2018 4:35 PM | |Interval placement of a right approach PICC line. On the final image obtained | |at 1615 hours the tip of the catheter is near the cavoatrial junction. | | | |There is persistent cardiomegaly and prominence of pulmonary vasculature. | |Grossly unchanged positioning of atrial and ventricular leads from an implanted | |device on the left chest. Asymmetric airspace disease in the right lower lung | |may be atelectasis or infiltrate. | | | |IMPRESSION - | | | |PICC catheter tip near the cavoatrial junction. | | | |Dictated and Signed by: Chet Cuevas MD | | Electronically signed: 06/26/2018 4:35 PM | + + + +---------+ + + | Performing | Address | City/State/Zipcode | Phone Number | | Organization | | | | + +---------+ + + | [facility] | | | | + +---------+ + + Legionella, Ag, EIA, Qual, Urine (06/26/2018 3:01 PM PST) + + + + + [...] | | specimen obtained by | | single | | catheterization of | | bladder (specimen) | + + + + + | Narrative | Performed At | + + + | Performed at: - [facility] [id number], | REFERENCE LAB | | [place], [place] [id number] [employer] Supervisor: Salazar Ocampo MD, Phone: | S[facility]ALL | | [phone] | | + + + + + + + + | Performing | Address | City/State/Zipcode | Phone Number | | Organization | | | | + + + + + | REFERENCE LAB | [id number] | [place] [address] | [phone] | | [facility] | [address] | | | + + + + + Culture, Urine (06/26/2018 3:00 PM PST) + + + + + + | Component | Value | Ref Range | Performed | Pathologist | | | | | At | Signature | + + + + + + | Culture | 6,000 CFU/ml Mixed Gram | | [facility] | | | | Positive FloraComment: | | [facility] | | | | Suggests contamination | | MEDICAL | | | | with urogenital or skin | | CENTER - | | | | homer.No further work-up | | LABORATORY | | | | to follow. | | | | + + + [...] [address] | [place] | [phone] | | [facility] | | [address] | | | - LABORATORY | | | | + + + + + Streptococcus Pneumoniae Ag, Urine (06/26/2018 3:00 PM PST) + + + + + [...] | REFERENCE | | | | [facility] [employer] [facility] | | LAB [facility] | | | | standards require a | | - [facility] | | | | culture to beperformed | | | | | | on CSF specimens | | | | | | submitted for bacterial | | | | | | antigen testing.(CAP | | | | | | [id number]) Urine | | | | | | [...] + + | Performed at: 01 - [facility], | REFERENCE LAB | | [place], [place] [id number] Slitting And Shipping Supervisor: Judy Tovar MD, Phone: | SONA HALL | | [phone] | | + + + + + + + + | Performing | Address | City/State/Zipcode | Phone Number | | Organization | | | | + + + + + | REFERENCE LAB | [address] | [place] [address] | [phone] | | [facility] | [address] | | | + + + + + Urinalysis with Microscopic with Culture if Indicated (06/26/2018 3:00 PM PST) + + + + + [...] + + + + | Specific | 1.015 | 1.001 - 1.030 | [facility] | | | [place] | | | [facility] | | | | | | [facility] | | | | | | CENTER - | | | | | | LABORATORY | | + + + + + + | Protein, | 30 mg/dL (A) | Negative | [facility] | | | Urine | | | [facility] | | | | | | [facility]ICAL | | | | | | CENTER - | | | | | | LABORATORY | | + + + + + + | Blood, | Moderate (A) | Negative | [facility] | | | Urine | | | [facility] | | | | | | MEDICAL | | | | | | CENTER - | | | | | | LABORATORY | | + + + + + + | Glucose, | Negative | Negative | [facility] | | | Urine | | | [facility] | | | | | | MEDICAL | | | | | | CENTER - | | | | | | LABORATORY | | + + + + + + | Ketones, | Negative | Negative | [facility] | | | Urine | | | [facility] | | | | | | MEDICAL | | | | | | CENTER - | | | | | | LABORATORY | | + + + + + + | Bilirubin, | Negative | Negative | [facility] | [...] + + + + | Leukocyte | Small (A) | Negative | [facility] [...] + + + | WBC UA | 25-50 (A) | 0 - 2 /HPF | [facility] | | | | | | [facility] | | | | | | MEDICAL | | | | | | CENTER - | | | | | | LABORATORY | | + + + + + + | WBC CLUMPS | Moderate (A) | None Seen /HPF | [facility] | | | UA | | | [facility] | | | | | | MEDICAL | | | | | | CENTER - | | | | | | LABORATORY | | + + + + + + | RBC UA | 50-100 (A) | 0 - 2 /HPF | [...] + + + + | HYALINE | 10-15 (A) | 0 - 2 /LPF | [facility] | | | [facility] | | | [facility] | | | | | | [facility]ICAL | | | | | | CENTER - | | | | | | LABORATORY | | + + + + + + | URINE | Urine Culture Set Up | | [facility] | | | COMMENT | | | [...] [address] | [place] | [phone] | | [facility] | | [address] | | | - LABORATORY | | | | + + + + + US Abdomen Complete (06/26/2018 2:50 PM PST) + + | Specimen | + + | | + + + + + | Narrative | Performed At | + + + | TECHNIQUE: Abdominal B-mode ultrasound with color and duplex doppler | [facility] | | CLINICAL INFORMATION: Elevated LFTs and LORIE on CKD. | | | COMPARISON: CT 12/12/2015. FINDINGS: LIVER: Size: | | | Hepatomegaly measuring up to 21.9 cm. Echogenicity: Normal. Surface | | | nodularity: None. Mass (size and location): None. Portal Vein: | | | Hepatopedal flow. BILE DUCTS: Intrahepatic ducts: Normal. | | | Common bile duct diameter: 5 mm GALLBLADDER: Gallstones: No | | | definite stones identified. Gallbladder sludge: Heterogeneous sludge. | | | Gallbladder wall thickening: The gallbladder is contracted and the | | | wall measures up to 4 mm. Pericholecystic fluid: None. Sonographic | | | Gruber sign: Absent. PANCREAS: Pancreatic duct measures 3 mm in | | | diameter, upper limits of normal. Imaged pancreas is without | | | evidence of mass lesion. SPLEEN: Borderline splenomegaly | | | measuring 12.2 cm. RIGHT KIDNEY: Hydronephrosis: None. | | | Calcification: None. Mass: None. Size: 12.6 cm in long axis LEFT | | | KIDNEY: Hydronephrosis: None. Calcification: None. Mass: None. | | | Size: 12.1 cm in long axis ABDOMINAL AORTA: Visualized portions | | | are normal. ASCITES: Minimal IMPRESSION - Sludge | | | within the contracted gallbladder with expected mild wall thickening. | | | No other findings to suggest acute cholecystitis. Mild | | | hepatomegaly and borderline splenomegaly. Dictated and Signed by: | | | Sheldon Gatica MD Electronically signed: 06/26/2018 3:41 PM | | + + + + + | Procedure Note | + + | Lalo, Rad Results In - 06/26/2018 3:44 PM PST TECHNIQUE: Abdominal B-mode ultrasound | | with color and duplex dopplerCLINICAL INFORMATION: Elevated LFTs and LORIE on | | CKD.COMPARISON: CT 12/12/2015.FINDINGS: LIVER:Size: Hepatomegaly measuring up to 21.9 | | cm.Echogenicity: Normal. Surface nodularity: None. Mass (size and location): None.Portal | | Vein: Hepatopedal flow. BILE DUCTS:Intrahepatic ducts: Normal. Common bile duct | | diameter: 5 mm GALLBLADDER:Gallstones: No definite stones identified.Gallbladder sludge: | | Heterogeneous sludge.Gallbladder wall thickening: The gallbladder is contracted and the | | wall measuresup to 4 mm.Pericholecystic fluid: None.Sonographic Gruber sign: Absent. | | PANCREAS:Pancreatic duct measures 3 mm in diameter, upper limits of normal. | | Imagedpancreas is without evidence of mass lesion.SPLEEN:Borderline splenomegaly | | measuring 12.2 cm.RIGHT KIDNEY:Hydronephrosis: None.Calcification: None.Mass: None.Size: | | 12.6 cm in long axisLEFT KIDNEY:Hydronephrosis: None.Calcification: None.Mass: | | None.Size: 12.1 cm in long axisABDOMINAL AORTA:Visualized portions are normal. | | ASCITES:MinimalIMPRESSION - Sludge within the contracted gallbladder with expected mild | | wall thickening. Noother findings to suggest acute cholecystitis.Mild hepatomegaly and | | borderline splenomegaly.Dictated and Signed by: Sheldon Gatica MD Electronically | | signed: 06/26/2018 3:41 PM | |Common bile duct diameter: 5 mm | | | |GALLBLADDER: | |Gallstones: No definite stones identified. | |Gallbladder sludge: Heterogeneous sludge. | |Gallbladder wall thickening: The gallbladder is contracted and the wall measures | |up to 4 mm. | |Pericholecystic fluid: None. | |Sonographic Gruber sign: Absent. | | | |PANCREAS: | |Pancreatic duct measures 3 mm in diameter, upper limits of normal. Imaged | |pancreas is without evidence of mass lesion. | | | |SPLEEN: | |Borderline splenomegaly measuring 12.2 cm. | | | |RIGHT KIDNEY: | |Hydronephrosis: None. | |Calcification: None. | |Mass: None. | |Size: 12.6 cm in long axis | | | |LEFT KIDNEY: | |Hydronephrosis: None. | |Calcification: None. | |Mass: None. | |Size: 12.1 cm in long axis | | | |ABDOMINAL AORTA: | |Visualized portions are normal. | | | |ASCITES: | |Minimal | | | | | |IMPRESSION - | |Sludge within the contracted gallbladder with expected mild wall thickening. No | |other findings to suggest acute cholecystitis. | | | |Mild hepatomegaly and borderline splenomegaly. | | | |Dictated and Signed by: Sheldon Gatica MD | | Electronically signed: 06/26/2018 3:41 PM | + + + +---------+ + + | Performing | Address | City/State/[facility] | Phone Number | | Organization | | | | + +---------+ + + | [facility] | | | | + +---------+ + + POC Glucose (06/26/2018 1:21 PM PST) + +-------+ + + + | Component | Value | Ref Range | Performed | Pathologist | | | | | At | Signature | + +-------+ + + + | Glucose, | 84 | 70 - 109 mg/dL | [facility] [...] + | [facility] | [address] | [place] | [phone] | | [facility] | | [address] | | | - LABORATORY | | | | + + + + + Culture, MRSA (06/26/2018 1:12 PM PST) + + + + + + | Component | Value | Ref Range | Performed | Pathologist | | | | | At | Signature | + + + + + + | Culture | Negative for MRSA by | | [facility] | | | | chromogenic agar method | | [facility] | | | | | | MEDICAL | | | | | | CENTER - | | | | | | LABORATORY | | + + + + + + | Culture | 3+ Coagulase positive | | [facility] | | | | Staphylococcus | | [facility] | | | [...] [address] | [place] | [phone] | | [facility] | | [address] | | | - LABORATORY | | | | + + + + + Extra Lavender Top Tube (06/26/2018 11:54 AM PST) + +-------+ + + + [...] + | [facility] | [address] | [place] | [phone] | | [facility] | | [address] | | | - LABORATORY | | | | + + + + + POC Glucose (06/26/2018 11:43 AM PST) + +-------+ + + + | Component | Value | Ref Range | Performed | Pathologist | | | | | At | Signature | + +-------+ + + + | Glucose, | 82 | 70 - 109 mg/dL | [facility] [...] [address] | [place] | [phone] | | [facility] | | [address] | | | - LABORATORY | | | | + + + + + Troponin I (06/26/2018 10:22 AM PST) + + + + + + | Component | Value | Ref Range | Performed | Pathologist | | | | | At | Signature | + + + + + + | Troponin I | 0.05Comment: Reference | <0.06 ng/mL | [facility] | | | | Ranges:0.00-0.06 = | | [facility] | | | | NORMAL>0.06 = | | MEDICAL | | | | SUSPICIOUS FOR | | CENTER - | | | | MYOCARDIAL DAMAGE NOTE: | | LABORATORY | | | | Values greater than 0.50 | | | | | | ng/mL have been shown | | | | | | to be strongly | | | | | | associated with acute | | | | | | myocardial infarction. | | | | | | The [employer] | | | | | | Cardiology (ACC) | | | | | | recommends a decision | | | | | | limit of 0.06 ng/mL for | | | | | | this assay. Results | | | | | | greater than 0.06 can | | | | | | reflect a pre-infarct | | | | | | acute coronary syndrome, | | | | | | but can also reflect | | | | | | myocardial necrosis or | | | | | | injury that is not due | | | | | | to coronary artery | | | | | | disease. Some of these | | | | | | causes are sepsis, | | | | | | hypocolemia, atrial | | | | | | fibrillation, heart | | | | | | failure, pulmonary | | | | | | embolism, myocarditis, | | | | | | myocardial contusion, | | | | | | and renal failure. The | | | | | | diagnosis of myocardial | | | | | | infarction should be | | | | | | based on a combination | | | | | | of the patient's | | | | | | clinical presentation | | | | | | and the clinical | | | | | | laboratory test results | | | | | | (especially serial | | | | | | troponin levels). | | | | + + + + + + + + | Specimen | + + | Blood | + + + + + + + | Performing | Address | City/State/Zipcode | Phone Number | | Organization | | | | + + + + + | [facility] | [address] | [place], [place] | [phone] | | [facility] | | [address] | | | - LABORATORY | | | | + + + + + Hemoglobin A1C (06/26/2018 10:22 AM PST) + +---------+ + + + | Component | Value | Ref Range | Performed | Pathologist | | | | | At | Signature | + +---------+ + + + | Hemoglobin | 7.7 (H) | 4.3 - 6.0 % | [facility] | | | A1c | | | [facility] | | | | | | MEDICAL | | | | | | CENTER - | | | | | | LABORATORY | | + +---------+ + + + | Estimated | 174 | mg/dL | [facility] | | | Average | | | [facility] | | | Glucose | | | MEDICAL | | | [...] + | [facility] | [address] | [place] | [phone] | | [facility] | | [address] | | | - LABORATORY | | | | + + + + + Parathyroid Hormone, Intact (06/26/2018 10:22 AM PST) + +---------+ + + + | Component | Value | Ref Range | Performed | Pathologist | | | | | At | Signature | + +---------+ + + + | PTH Intact | 416 (H) | 12 - 88 pg/mL | [facility] | | | | | | [facility] [...] [address] | [place] | [phone] | | [facility] | | [address] | | | - LABORATORY | | | | + + + + + Hepatic Function Panel (06/26/2018 10:22 AM PST) + + + + + + | Component | Value | Ref Range | Performed | Pathologist | | | | | At | Signature | + + + + + + | Bilirubin | 2.2 (H) | 0.1 - 1.5 mg/dL | [facility] | | | Total | | | [facility] | | | | | | MEDICAL | | | | | | CENTER - | | | | | | LABORATORY | | + + + + + + | Total | 7.0 | 6.0 - 7.8 g/dL | [facility] | | | Protein | | | [facility] | | | | | | MEDICAL | | | | | | CENTER - | | | | | | LABORATORY | | + + + + + + | Albumin | 3.0 (L) | 3.2 - 5.0 g/dL | [facility] | | | | | | [facility] | | | | | | MEDICAL | | | | | | CENTER - | | | | | | LABORATORY | | + + + + + + | AST | 103 (H) | 10 - 42 U/L | [facility] | | | | | | [facility] | | | | | | MEDICAL | | | | | | CENTER - | | | | | | LABORATORY | | + + + + + + | ALT | 35 | 6 - 45 U/L | [facility] | | | | | | [facility] | | | | | | MEDICAL | | | | | | CENTER - | | | | | | LABORATORY | | + + + + + + | Alkaline | 161 (H) | 40 - 110 U/L | [facility] | | | Phosphatase | | | [facility] | | | | | | MEDICAL | | | | | | CENTER - | | | | | | LABORATORY | | + + + + + + | Globulin | 4.0 (H) | 2.1 - 3.8 g/dL | [facility] | | | | | | [facility] | | | | | | MEDICAL | | | | | | CENTER - | | | | | | LABORATORY | | + + + + + + | Albumin/Becky | 0.8 | 0.8 - 2.0 | [facility] | | | bulin Ratio | | | [facility] | | | | | | MEDICAL | | | | | | CENTER - | | | | | | LABORATORY | | + + + + + + | Bilirubin, | 1.10 (H) | 0.00 - 0.20 | [facility] | | | Direct | | mg/dl | [facility] | | | | | | MEDICAL [...] [address] | [place] | [phone] | | [facility] | | [address] | | | - LABORATORY | | | | + + + + + Extra Green Top Tube (06/26/2018 10:22 AM PST) + +-------+ + + + | Component | Value | Ref Range | Performed | Pathologist | | | | | At | Signature | + +-------+ + + + | Extra Green | Done | | [facility] | | | Top Tube | | | [facility] | | [...] + | [facility] | [address] | [place] | [phone] | | [facility] | | [address] | | | - LABORATORY | | | | + + + + + Extra Lavender Top Tube (06/26/2018 10:22 AM PST) + +-------+ + + + | Component | Value | Ref Range | Performed | Pathologist | | | | | At | Signature | + +-------+ + + + | Extra | Done | | [facility] | | | Lavender | | | [facility] | | | Top Tube | [...] + | [facility] | [address] | [place] | [phone] | | [facility] | | [address] | | | - LABORATORY | | | | + + + + + Lactic Acid (06/26/2018 10:22 AM PST) + +-------+ + + + | Component | Value | Ref Range | Performed | Pathologist | | | | | At | Signature | + +-------+ + + + | Lactate | 0.7 | 0.5 - 2.2 | [facility] | | | | | [...] [address] | [place] | [phone] | | [facility] | | [address] | | | - LABORATORY | | | | + + + + + Culture, Blood (06/26/2018 10:22 AM PST) + + + + [...] [address] | [place] | [phone] | | [facility] | | [address] | | | - LABORATORY | | | | + + + + + VAS Lower Extremity Venous Left (06/26/2018 9:41 AM PST) + + | Specimen | + + | | + + + + + | Narrative | Performed At | + + + | TECHNIQUE: Left lower extremity B-mode ultrasound with color and | [facility] | | duplex Doppler. CLINICAL INFORMATION: Leg swelling and pain. | | | COMPARISON: None available. FINDINGS: Normal flow, | | | compressibility and augmentation of the visualized deep venous | | | structures. IMPRESSION - No evidence of DVT. Notification: | | | A preliminary report was relayed to the ordering provider by the | | | computer engineering technologist immediately following the exam. Dictated | | | and Signed by: Sheldon Gatica MD Electronically signed: 06/26/2018 | | | 11:27 AM | | + + + + + | Procedure Note | + + | Lalo, Rad Results In - 06/26/2018 11:30 AM PST | | TECHNIQUE: Left lower extremity B-mode ultrasound with color and duplex Doppler. | | | | CLINICAL INFORMATION: Leg swelling and pain. | | | | COMPARISON: None available. | | | | FINDINGS: Normal flow, compressibility and augmentation of the visualized deep | | venous structures. | | | | IMPRESSION - No evidence of DVT. | | | | Notification: A preliminary report was relayed to the ordering provider by the | | computer engineering technologist immediately following the exam. | | | | Dictated and Signed by: Sheldon Gatica MD | | Electronically signed: 06/26/2018 11:27 AM | + + + +---------+ + + | Performing | Address | City/State/Zipcode | Phone Number | | Organization | | | | + +---------+ + + | [facility] | | | | + +---------+ + + Culture, Blood (06/26/2018 9:24 AM PST) + + + + + [...] Specimen | + + | Blood - Swab of line | | insertion site | | (specimen) | + + + + + + + | Performing | Address | City/State/Zipcode | Phone Number | | Organization | | | | + + + + + | [facility] | [address] | [place] | [phone] | | [facility] | | [address] | | | - LABORATORY | | | | + + + + + XR Chest AP Portable (06/26/2018 7:33 AM PST) + + | Specimen | + + | | + + + + + | Narrative | Performed At | + + + | CLINICAL INFORMATION: CHF, shortness of breath. COMPARISON: | [facility] | | 12/12/2015. FINDINGS: Portable frontal chest radiograph. | | | Lungs: Mild prominence of the central pulmonary vasculature and | | | interstitial lung markings. Asymmetric opacities are noted at the | | | right lung base. No pleural effusion or pneumothorax. | | | Heart/mediastinum: Stable cardiomegaly. Left chest cardiac pacer | | | device is stable. Median sternotomy changes. Bones: No acute | | | osseous abnormality appreciated. IMPRESSION - Stable | | | cardiomegaly with mild pulmonary edema. Focal airspace opacities | | | at the right lung base may represent atelectasis, although, pneumonia | | | is also a consideration. Dictated and Signed by: Sheldon Gatica, | | | Electronically signed: 06/26/2018 9:41 AM | | + + + + + | Procedure Note | + + | Marcus May Results In - 06/26/2018 9:45 AM PST | | CLINICAL INFORMATION: CHF, shortness of breath. | | | | COMPARISON: 12/12/2015. | | | | FINDINGS: | | Portable frontal chest radiograph. | | | | Lungs: Mild prominence of the central pulmonary vasculature and interstitial | | lung markings. Asymmetric opacities are noted at the right lung base. No | | pleural effusion or pneumothorax. | | | | Heart/mediastinum: Stable cardiomegaly. Left chest cardiac pacer device is | | stable. Median sternotomy changes. | | | | Bones: No acute osseous abnormality appreciated. | | | | IMPRESSION - | | Stable cardiomegaly with mild pulmonary edema. | | | | Focal airspace opacities at the right lung base may represent atelectasis, | | although, pneumonia is also a consideration. | | | | Dictated and Signed by: Sheldon Gatica MD | | Electronically signed: 06/26/2018 9:41 AM | + + + +---------+ + + | Performing | Address | City/State/Zipcode | Phone Number | | Organization | | | | + +---------+ + + | [facility] | | | | + +---------+ + + Uric Acid (06/26/2018 7:24 AM PST) + + + + + + | Component | Value | Ref Range | Performed | Pathologist | | | | | At | Signature | + + + + + + | Uric Acid | 10.6 (H) | 2.6 - 7.2 mg/dL | [facility] | | | | [...] [address] | [place] | [phone] | | [facility] | | [address] | | | - LABORATORY | | | | + + + + + Procalcitonin (06/26/2018 7:24 AM PST) + + + + + + | Component | Value | Ref Range | Performed | Pathologist | | | | | At | Signature | + + + + + + | Procalciton | 51.92 ()Comment: | <=0.50 ng/mL | [facility] | | | in | Critical Result called | | [facility] | | | | to and read back by | | MEDICAL | | | | Perlita Loya RN on | | CENTER - | | | | 06/26/2018 at 12:37 by | | LABORATORY | | | | Mohsen Bruce. | | | | + + + + + + | Comment | Comment: < 0.50 | | [facility] | | | | ng/mL:Procalcitonin | | [facility] | | | | levels below 0.50 [...] [address] | [place] | [phone] | | [facility] | | [address] | | | - LABORATORY | | | | + + + + + PTT (06/26/2018 7:24 AM PST) + +-------+ + + + | Component | Value | Ref Range | Performed | Pathologist | | | | | At | Signature | + +-------+ + + + | aPTT | 36 | 22 - 36 seconds | [facility] [...] [address] | [place] | [phone] | | [facility] | | [address] | | | - LABORATORY | | | | + + + + + Protime INR (06/26/2018 7:24 AM PST) + + + + + + | Component | Value | Ref Range | Performed | Pathologist | | | | | At | Signature | + + + + + + | Prothrombin | 13.5 | 11.3 - 13.9 | [facility] | | | Time | | seconds | [facility] | | | | | | MEDICAL | | | | | | CENTER - | | | | | | LABORATORY | | + + + + + + | INR | 1.0Comment: Usual Oral | 0.9 - 1.1 | [facility] | | | | Anticoagulation Range: | | [facility] | | | | 2.0 - 3.0High [...] [address] | [place] | [phone] | | [facility] | | [address] | | | - LABORATORY | | | | + + + + + Phosphorus (06/26/2018 7:24 AM PST) + + + + + + | Component | Value | Ref Range | Performed | Pathologist | | | | | At | Signature | + + + + + + | Phosphorus | 8.7 ()Comment: | 2.5 - 4.6 mg/dL | [facility] | | | | Critical Result called | | [facility] | | | | to and read back by | | MEDICAL | | | | Raeann Ayala RN on | | CENTER - | | | | 06/26/2018 at 11:52 by | | LABORATORY | | | | Sue Recinos. | | | | + + + + + + + + | Specimen | + + | Blood | + + + + + + + | Performing | Address | City/State/Zipcode | Phone Number | | Organization | | | | + + + + + | [facility] | [address] | [place] | [phone] | | [facility] | | [address] | | | - LABORATORY | | | | + + + + + Magnesium (06/26/2018 7:24 AM PST) + +-------+ + + + | Component | Value | Ref Range | Performed | Pathologist | | | | | At | Signature | + +-------+ + + + | Magnesium | 1.8 | 1.8 - 2.5 mg/dL | [facility] | | | | [...] [address] | [place] | [phone] | | [facility] | | [address] | | | - LABORATORY | | | | + + + + + Extra Blue Top Tube (06/26/2018 7:24 AM PST) + +-------+ + + + | Component | Value | Ref Range | Performed | Pathologist | | | | | At | Signature | + +-------+ + + + | Extra Blue | Done | | [facility] | | | Top Tube | | | [facility] | | [...] + | [facility] | [address] | [place] | [phone] | | [facility] | | [address] | | | - LABORATORY | | | | + + + + + Extra Green Top Tube (06/26/2018 7:24 AM PST) + +-------+ + + + | Component | Value | Ref Range | Performed | Pathologist | | | | | At | Signature | + +-------+ + + + | Extra Green | Done | | [facility] | | | Top Tube | | | [facility] | | [...] [address] | [place] | [phone] | | [facility] | | [address] | | | - LABORATORY | | | | + + + + + B Type Natriuretic Peptide (06/26/2018 7:23 AM PST) + +---------+ + + + | Component | Value | Ref Range | Performed | Pathologist | | | | | At | Signature | + +---------+ + + + | BNP | 182 (H) | <100 pg/mL | [facility] | | | | | | [facility] | | | | | | MEDICAL [...] [address] | [place] | [phone] | | [facility] | | [address] | | | - LABORATORY | | | | + + + + + Basic Metabolic Panel (06/26/2018 7:23 AM PST) + + + + + + | Component | Value | Ref Range | Performed | Pathologist | | | | | At | Signature | + + + + + + | Na | 124 (L) | 136 - 149 | [facility] | | | | | mmol/L | [facility] | | | | | | MEDICAL | | | | | | CENTER - | | | | | | LABORATORY | | + + + + + + | K | 3.7 | 3.5 - 5.1 | [facility] | | | | | mmol/L | [facility] | | | | | | MEDICAL | | | | | | CENTER - | | | | | | LABORATORY | | + + + + + + | Cl | 80 (L) | 98 - 109 mmol/L | [facility] | | | | | | [facility] | | | | | | MEDICAL | | | | | | CENTER - | | | | | | LABORATORY | | + + + + + + | CO2 | 27 | 24 - 31 mmol/L | [facility] | | | | | | [facility] | | | | | | MEDICAL | | | | | | CENTER - | | | | | | LABORATORY | | + + + + + + | Anion Gap | 17 (H) | 3 - 16 mmol/L | [facility] | | | | | [facility] | [facility] | [facility] | | | | | | [facility] - | | | | | | LABORATORY | | + + + + + + | Glucose | 55 (L) | 70 - 109 mg/dL | [facility] | | | | [facility] | [facility] | [facility] | | [facility] | | | | | | C[facility] - | | | | | | LABORATORY | | + + + + + + | BUN | 166 (HH)Comment: | 7 - 18 mg/dL | [facility] | | | | Critical Result called | | [facility] | | | | to and read back by | | MEDICAL | | | | Raeann Ayala RN on | | CENTER - | | | | 06/26/2018 at 8:19 by | | LABORATORY | | | | Marielle Silva. | | | | + + + + + + | Creatinine | 7.03 (H) | 0.60 - 1.30 | [facility] | | | | | mg/dL | [facility] | | | | | | [facility] | | | | | | CENTER - | | | | | | LABORATORY | | + + + + + + | eGFR if not | 8 (L)Comment: GLOMERULAR | >=60 | [facility] | | | | FILTRATION | mL/min/1.73m2 | [facility] | | | [facility] | RATE,ESTIMATED | | MEDICAL | | | | mL/min/1.01v1Qkpq than | | CENTER - | | [...] + + + + | Calcium | 8.2 (L) | 8.3 - 10.5 | [facility] | | | | | mg/dL | [facility] | | [facility] | | | | | | [facility] - | | | | | | LABORATORY | | + + + + + + | BUN/Creatin | 23.6 | | [facility] | | | ine [...] + | [facility] | [address] | [place] | [phone] | | [facility] | | [id number] | | | - LABORATORY | | | | + + + + + CBC with Differential (06/26/2018 7:23 AM PST) + + + + + + | Component | Value | Ref Range | Performed | Pathologist | | | | | At | Signature | + + + + + + | WBC | 8.7 | 4.0 - 11.0 K/uL | [facility] | | | | | | [facility] | | | | | | [facility] | | | | | | [facility] - | | | | | | LABORATORY | | + + + + + + | RBC | 3.95 (L) | 4.30 - 5.70 | [facility] | | | | | M/uL | [facility] | | | | | | [facility] | | | | | | [facility] - | | | | | | LABORATORY | | + + + + + + | Hemoglobin | 12.7 (L) | 13.5 - 18.0 | [facility] | | | | | g/dL | [facility] | | | | | | [facility] | | | | | | C[facility] - | | | | | | LABORATORY | | + + + + + + | Hematocrit | 37.1 (L) | 40.0 - 51.0 % | [facility] | | | | | | [facility] | | | | | | [facility] | | | | | | [facility] - | | | | | | LABORATORY | | + + + + + + | MCV | 93.9 | 83.0 - 101.0 fL | [facility] | | | | | | [facility] | | | [facility] | | [facility] | | | | | | [facility] - | | | | | | LABORATORY | | + + + + + + | MCH | 32.2 | 28.0 - 35.0 pg | [facility] | | | | | | [facility] | | | | | | [facility] | | | | | | [facility] - | | | | | | LABORATORY | | + + + + + + | MCHC | 34.2 | 32.0 - 36.0 | [facility] | [...] + + + + | RDW-SD | 54.8 (H) | 35.1 - 46.3 fL | [facility] | | | | | | [facility] | | | | [facility] | [facility] | | | | | | [facility] - | | | | | | LABORATORY | | + + + + + + | Platelet | 91 (L) | 140 - 440 K/uL | [facility] | | | Count | | | [facility] | | | | | | [facility] | | | | | | [facility] - | | | | | | LABORATORY | | + + + + + + | MPV | 13.1 (H) | 6.5 - 12.4 fL | [facility] | | | | | | [facility] | | | | [facility] | [facility] | | | | | | [facility] - | | | | | | LABORATORY | | + + + + + + | Immature | 7.6Comment: Low PLT + | 0.9 - 11.2 [...] + + + + | % | 80.0 | 45.0 - 82.0 % | [facility] | | | Neutrophils | | | [facility] | | | | | | [facility] | | | | | | CENTER - | | | | | | LABORATORY | | + + + + + + | % | 10.7 (L) | 20.0 - 45.0 % | [facility] | | | Lymphocytes | | | [facility] | | | | | | [facility] | | | | | | CENTER - | | | | | | LABORATORY | | + + + + + + | % Monocytes | 8.3 | 4.0 - 12.0 % | [facility] | | | | | | [facility] | | | | | | [facility] | | | | | | [facility] - | | | | | | LABORATORY | | + + + + + + | % | 0.3 | 0.0 - 5.0 % | [facility] [...] + + + | % Immature | 0.5 (H)Comment: | 0.0 - 0.4 % | [...] + + + + | Absolute | 6.97 | 1.80 - 8.50 | [facility] | | | Neutrophils | | K/uL | [facility] | | | | | | [facility] | | | | | | C[facility] - | | | | | | LABORATORY | | + + + + + + | Absolute | 0.93 | 0.60 - 3.20 | [facility] | | | Lymphocytes | | K/uL | [facility] | | | [facility] | | [facility] | | | | | | CENTER - | | | | | | LABORATORY | | + + + + + + | Absolute | 0.72 | 0.00 - 1.00 | [facility] | | | Monocytes | | K/uL | [facility] | | | | | | [facility] | | | | | | [facility]ENTER - | | | | | | LABORATORY | | + + + + + + | Absolute | 0.03 | 0.00 - 0.40 | [facility] | [...] + + + | Absolute | 0.04 (H) | 0.00 - 0.03 | [facility] [...] | [facility] | | | | | WBC's | [facility] | | [facility] | [facility] | | | | | | [facility] - | | | | | | LABORATORY | | + + + + + + | Absolute | 0.00 | 0.00 - 0.01 | [facility] | | | nRBC | | K/uL | [facility] | | | | | | [...] [address] | [place] | [phone] | | [facility] | | [address] | | | - LABORATORY | | | | + + + + + LABS - EXTERNAL SCAN (06/19/2018 12:00 AM PST) + + + | Narrative | Performed At | + + + | Ordered by an | | | unspecified provider. | | + + + documented in this encounter Visit Diagnoses + + | Diagnosis | + + | Severe sepsis with septic shock (HCC) - Primary Unspecified septicemia | + + | Pneumonia due to infectious organism, unspecified laterality, unspecified part of lung | + + | Acute renal failure with acute tubular necrosis superimposed on chronic kidney | | disease, unspecified CKD stage (HCC) | + + | Hyponatremia Hyposmolality and/or hyponatremia | + + | Hypoxemia | + + | Hyperphosphatemia Disorders of phosphorus metabolism | + + | Sepsis, due to unspecified organism | + + | Acute kidney injury superimposed on chronic kidney disease (HCC) | + + | Type 2 diabetes mellitus with stage 4 chronic kidney disease, without long-term | | current use of insulin (HCC) | + + | Acute respiratory failure with hypoxia (HCC) Acute respiratory failure | + + | Acute on chronic systolic heart failure (HCC) Acute on chronic systolic heart failure | + + | Acute metabolic encephalopathy | + + | Delirium Other alteration of consciousness | + + | Palliative care by specialist | + + | Goals of care, counseling/discussion Other specified counseling | + + | Confusion Unspecified psychosis | + + | Hypoxia Hypoxemia | + + | Anemia, unspecified type | + + | Pneumonia Pneumonia, organism unspecified | + + | Class 3 obesity due to excess calories with serious comorbidity and body mass index | | (BMI) of 40.0 to 44.9 in adult | + + | Cellulitis of left lower extremity Cellulitis and abscess of leg, except foot | + + | ESRD (end stage renal disease) on dialysis (HCC) End stage renal disease | + + documented in this encounter Administered Medications + +--------+ + +------+------+ | Medication Order | MAR | Action | Dose | Rate | Site | | | Action | Date | | | | + +--------+ + +------+------+ | acetaminophen (TYLENOL) tablet | Given | 07/06/20 | 1,000 mg | | | | 1,000 mg 1,000 mg, Oral, EVERY 8 | | 18 6:12 | | | | | HOURS (3 times per day), First | | AM PST | | | | | dose on 07/03/18 at 1745, For | | | | | | | 3 days, Start 8 hours after | | | | | | | pre-op dose., | | | | | | + +--------+ + +------+------+ +-------+ + +---+---+ | Given | 07/05/20 | 1,000 mg | | | | | 18 9:11 | | | | | | PM PST | | | | +-------+ + +---+---+ | Given | 07/05/20 | 1,000 mg | | | | | 18 1:56 | | | | | | PM PST | | | | +-------+ + +---+---+ + +---+ | | | + +---+ | albumin 25% IVPB 12.5 g 12.5 | | | g, Intravenous, Administer over | | | 60 Minutes, PRN, PRN | | | hypotension., Starting [facility] | | | 06/29/18 at 0921, For BP less than | | | 90. Dialysis use only., | | + +---+ | | | + +---+ + +-------+ +-------+---+---+ | albuterol-ipratropium 2.5-0.5 | Given | 07/08/20 | 3 mLs | | | | mg/3 mL nebulizer solution 3 mL | | 18 10:00 | | | | | 3 mL, Nebulization, RT Q6H, First | | AM PST | | | | | dose on 06/26/18 at 1500 | | | | | | + +-------+ +-------+---+---+ +-------+ +-------+---+---+ | Given | 07/08/20 | 3 mLs | | | | | 18 3:37 | | | | | | AM PST | | | | +-------+ +-------+---+---+ | Given | 07/07/20 | 3 mLs | | | | | 18 9:01 | | | | | | PM PST | | | | +-------+ +-------+---+---+ +---+---+ | | | +---+---+ + +-------+ +------+---+---+ | alteplase (CATHFLO ACTIVASE) | Given | 07/06/20 | 2 mg | | | | injection 2 mg 2 mg, | | 18 6:09 | | | | | Intracatheter, ONCE, [facility] 07/06/18 | | AM PST | | | | | at 0430, For 1 dose, Let dwell | | | | | | | for 0.5 to 2 hours. , , | | | | | | + +-------+ +------+---+---+ +---+---+ | | | +---+---+ + +-------+ +-------+---+---+ | aspirin EC tablet 81 mg 81 mg, | Given | 07/08/20 | 81 mg | | | | Oral, DAILY, First dose on Mon | | 18 8:15 | | | | | 06/26/18 at 1330 | | AM PST | | | | + +-------+ +-------+---+---+ +-------+ +-------+---+---+ | Given | 07/07/20 | 81 mg | | | | | 18 8:37 | | | | | | AM PST | | | | +-------+ +-------+---+---+ | Given | 07/06/20 | 81 mg | | | | | 18 8:34 | | | | | | AM PST | | | | +-------+ +-------+---+---+ +---+---+ | | | +---+---+ + +-------+ +-------+---+---+ | atorvaSTATin (LIPITOR) tablet | Given | 07/07/20 | 40 mg | | | | 40 mg 40 mg, Oral, NIGHTLY, | | 18 9:44 | | | | | First dose on Tue06/26/18 at 2100 | | PM PST | | | | + +-------+ +-------+---+---+ +-------+ +-------+---+---+ | Given | 07/06/20 | 40 mg | | | | | 18 8:23 | | | | | | PM PST | | | | +-------+ +-------+---+---+ | Given | 07/05/20 | 40 mg | | | | | 18 9:11 | | | | | | PM PST | | | | +-------+ +-------+---+---+ +---+---+ | | | +---+---+ + +-------+ +--------+---+---+ | azithromycin (ZITHROMAX) tablet | Given | 06/28/20 | 500 mg | | | | 500 mg 500 mg, Oral, DAILY, | | 18 8:30 | | | | | First dose on 06/26/18 at | | AM PST | | | | | 1105, For 3 days, Indications: | | | | | | | Community Acquired Pneumonia | | | | | | + +-------+ +--------+---+---+ +-------+ +--------+---+---+ | Given | 06/27/20 | 500 mg | | | | | 18 8:26 | | | | | | AM PST | | | | +-------+ +--------+---+---+ | Given | 06/26/20 | 500 mg | | | | | 18 3:20 | | | | | | PM PST | | | | +-------+ +--------+---+---+ +---+---+ | | | +---+---+ + +-------+ + +---+---+ | carvedilol (COREG) tablet 3.125 | Given | 07/08/20 | 3.125 mg | | | | mg 3.125 mg, Oral, 2 TIMES | | 18 8:15 | | | | | DAILY WITH BREAKFAST & DINNER, | | AM PST | | | | | First dose on Tue07/04/18 at | | | | | | | 1700 | | | | | | + +-------+ + +---+---+ +-------+ + +---+---+ | Given | 07/07/20 | 3.125 mg | | | | | 18 5:50 | | | | | | PM PST | | | | +-------+ + +---+---+ | Given | 07/07/20 | 3.125 mg | | | | | 18 8:37 | | | | | | AM PST | | | | +-------+ + +---+---+ +---+---+ | | | +---+---+ + +---------+ +-----+-------+---+ | cefTRIAXone (ROCEPHIN) 1 g in | | 06/26/20 | 1 g | 100 | | | sodium chloride 0.9% 50 mL IVPB | | 18 10:31 | | mL/hr | | | 1 g, Intravenous, Administer over | | AM PST | | | | | 30 Minutes, ONCE, 06/26/18 at | | | | | | | 0910, For 1 dose, Activate | | | | | | | system and mix before use., | | | | | | | Indications: Community Acquired | | | | | | | Pneumonia | | | | | | + +---------+ +-----+-------+---+ +---+---+ | | | +---+---+ + +---------+ +-----+-------+---+ | cefTRIAXone (ROCEPHIN) 2 g in | | 07/01/20 | 2 g | 100 | | | sodium chloride 0.9% 50 mL IVPB | | 18 8:27 | | mL/hr | | | 2 g, Intravenous, Administer over | | AM PST | | | | | 30 Minutes, EVERY 24 HOURS | | | | | | | (Daily), First dose on Tue | | | | | | | 06/27/18 at 0900, For 5 days, | | | | | | | Activate system and mix before | | | | | | | use., Indications: Community | | | | | | | Acquired Pneumonia | | | | | | + +---------+ +-----+-------+---+ +---------+ +-----+-------+---+ | New Bag | 06/30/20 | 2 g | 100 | | | | 18 8:32 | | mL/hr | | | | AM PST | | | | +---------+ +-----+-------+---+ | New Bag | 06/29/20 | 2 g | 100 | | | | 18 9:40 | | mL/hr | | | | AM PST | | | | +---------+ +-----+-------+---+ +---+---+ | | | +---+---+ + +---------+ +---+ +---+ | dextrose 5% and sodium chloride | New Bag | 06/27/20 | | 75 mL/hr | | | 0.9% (D5 NS) infusion at 75 | | 18 2:02 | | | | | mL/hr, Intravenous, CONTINUOUS, | | AM PST | | | | | Starting 06/26/18 at 1105 | | | | | | + +---------+ +---+ +---+ +---------+ +---+ +---+ | New Bag | 06/26/20 | | 75 mL/hr | | | | 18 1:16 | | | | | | PM PST | | | | +---------+ +---+ +---+ + +---+ | | | + +---+ | dextrose 50% injection 12.5 g | | | 12.5 g, Intravenous, PRN, Low | | | Blood Sugar, Starting [facility] 06/26/18 | | | at 1313 | | + +---+ | | | + +---+ | diphenhydrAMINE (BENADRYL) 12.5 | | | mg/5 mL liquid 25 mg 25 mg, | | | Oral, EVERY 4 HOURS PRN, Itching, | | | Starting [facility] 07/03/18 at 1719, | | | Oral route is preferred., | | + +---+ | | | + +---+ | diphenhydrAMINE (BENADRYL) | | | injection 12.5 mg 12.5 mg, | | | Intravenous, EVERY 4 HOURS PRN, | | | Itching, Starting 07/03/18 at | | | 1719, Oral route is preferred., | | + +---+ | | | + +---+ | diphenhydrAMINE (BENADRYL) | | | tablet 25 mg 25 mg, Oral, EVERY | | | 4 HOURS PRN, Itching, Starting | | | 07/03/18 at 1719, Oral route | | | is preferred., | | + +---+ | | | + +---+ + +-------+ +--------+---+---+ | docusate sodium (COLACE) | Given | 07/08/20 | 100 mg | | | | capsule 100 mg 100 mg, Oral, 2 | | 18 8:16 | | | | | TIMES DAILY, First dose on Mon | | AM PST | | | | | 12/3/18 at 1330, Hold for loose | | | | | | | stools, | | | | | | + +-------+ +--------+---+---+ +-------+ +--------+---+---+ | Given | 07/07/20 | 100 mg | | | | | 18 9:44 | | | | | | PM PST | | | | +-------+ +--------+---+---+ | Given | 07/07/20 | 100 mg | | | | | 18 8:37 | | | | | | AM PST | | | | +-------+ +--------+---+---+ +---+---+ | | | +---+---+ + +---------+ +--------+-------+---+ | doxycycline (VIBRAMYCIN) 100 mg | New Bag | 07/08/20 | 100 mg | 100 | | | in sodium chloride 0.9% 100 mL | | 18 10:24 | | mL/hr | | | IVPB 100 mg, Intravenous, | | AM PST | | | | | Administer over 1 Hours, EVERY 12 | | | | | | | HOURS (2 times per day), First | | | | | | | dose on Tue06/28/18 at 2100, | | | | | | | Activate system and mix before | | | | | | | use., Indications: | | | | | | | cellulitis/bursitis of knee | | | | | | + +---------+ +--------+-------+---+ +---------+ +--------+-------+---+ | New Bag | 07/07/20 | 100 mg | 100 | | | | 18 9:44 | | mL/hr | | | | PM PST | | | | +---------+ +--------+-------+---+ | New Bag | 07/07/20 | 100 mg | 100 | | | | 18 9:47 | | mL/hr | | | | AM PST | | | | +---------+ +--------+-------+---+ +---+---+ | | | +---+---+ + +-------+ +-------+---+---+ | famotidine (PEPCID) injection | Given | 07/03/20 | 20 mg | | | | 20 mg 20 mg, Intravenous, | | 18 8:45 | | | | | TIMES DAILY, First dose on Mon | | AM PST | | | | | 06/26/18 at 1330, keep in | | | | | | | refrigerator Dilute 2 mL of | | | | | | | famotidine with 8 mL of normal | | | | | | | saline to a final concentration | | | | | | | of 2 mg/mL. Administer ordered | | | | | | | dose over a period of at least 2 | | | | | | | minutes., | | | | | | + +-------+ +-------+---+---+ +-------+ +-------+---+---+ | Given | 07/02/20 | 20 mg | | | | | 18 8:57 | | | | | | PM PST | | | | +-------+ +-------+---+---+ | Given | 07/02/20 | 20 mg | | | | | 18 10:31 | | | | | | AM PST | | | | +-------+ +-------+---+---+ +---+---+ | | | +---+---+ + +-------+ +-------+---+---+ | famotidine (PEPCID) injection | Given | 07/04/20 | 20 mg | | | | 20 mg 20 mg, Intravenous, DAILY, | | 18 8:10 | | | | | First dose (after last | | AM PST | | | | | modification) on Tue07/04/18 at | | | | | | | 0900, keep in refrigerator Dilute | | | | | | | 2 mL of famotidine with 8 mL of | | | | | | | normal saline to a final | | | | | | | concentration of 2 mg/mL. | | | | | | | Administer ordered dose over a | | | | | | | period of at least 2 minutes., | | | | | | + +-------+ +-------+---+---+ +---+---+ | | | +---+---+ + +-------+ +-------+---+---+ | famotidine (PEPCID) tablet 20 | Given | 07/08/20 | 20 mg | | | | mg 20 mg, Oral, DAILY, First | | 18 8:16 | | | | | dose on Tue07/05/18 at 0900 | | AM PST | | | | + +-------+ +-------+---+---+ +-------+ +-------+---+---+ | Given | 07/07/20 | 20 mg | | | | | 18 8:37 | | | | | | AM PST | | | | +-------+ +-------+---+---+ | Given | 07/06/20 | 20 mg | | | | | 18 8:34 | | | | | | AM PST | | | | +-------+ +-------+---+---+ +---+---+ | | | +---+---+ + +-------+ +-------+---+---+ | furosemide (LASIX) injection 80 | Given | 07/08/20 | 80 mg | | | | mg 80 mg, Intravenous, 2 TIMES | | 18 8:09 | | | | | DAILY 0800 & 1600, First dose on | | AM PST | | | | | [facility] 07/06/18 at 1000 | | | | | | + +-------+ +-------+---+---+ +-------+ +-------+---+---+ | Given | 07/07/20 | 80 mg | | | | | 18 4:09 | | | | | | PM PST | | | | +-------+ +-------+---+---+ | Given | 07/07/20 | 80 mg | | | | | 18 8:37 | | | | | | AM PST | | | | +-------+ +-------+---+---+ +---+---+ | | | +---+---+ + +-------+ +--------+---+---+ | heparin 1,000 units/mL | Given | 06/30/20 | 2,800 | | | | injection 1,500-6,000 Units | | 18 7:40 | Units | | | | 1,500-6,000 Units, Intracatheter, | | PM PST | | | | | PRN, catheter care, Starting Wed | | | | | | | 06/28/18 at 1315, Instill in | | | | | | | catheter, after each dialysis. | | | | | | | Dispense quantity sufficient to | | | | | | | fill both lumens of catheter., | | | | | | | Dialysis | | | | | | + +-------+ +--------+---+---+ +-------+ +--------+---+---+ | Given | 06/29/20 | 2,800 | | | | | 18 3:20 | Units | | | | | PM PST | | | | +-------+ +--------+---+---+ | Given | 06/28/20 | 2,800 | | | | | 18 7:51 | Units | | | | | PM PST | | | | +-------+ +--------+---+---+ +---+---+ | | | +---+---+ + +-------+ +--------+---+---+ | heparin 1,000 units/mL | Given | 07/07/20 | 3,600 | | | | injection 1,500-6,000 Units | | 18 3:27 | Units | | | | 1,500-6,000 Units, Intracatheter, | | PM PST | | | | | PRN, catheter care, Starting Tue | | | | | | | 07/04/18 at 1217, Instill in | | | | | | | catheter, after each dialysis. | | | | | | | Dispense quantity sufficient to | | | | | | | fill both lumens of catheter., | | | | | | + +-------+ +--------+---+---+ +-------+ +--------+---+---+ | Given | 07/04/20 | 1,800 | | | | | 18 1:36 | Units | | | | | PM PST | | | | +-------+ +--------+---+---+ +---+---+ | | | +---+---+ + +-------+ +-------+---+---+ | heparin 1,000 units/mL | Given | 06/28/20 | 500 | | | | injection 500 Units 500 Units, | | 18 3:08 | Units | | | | Intravenous, WITH EACH DIALYSIS, | | PM PST | | | | | Starting 06/28/18 at 1315, | | | | | | | Dialysis | | | | | | + +-------+ +-------+---+---+ +---+---+ | | | +---+---+ + +-------+ +-------+---+---+ | heparin 1,000 units/mL | Given | 06/29/20 | 500 | | | | injection 500 Units 500 Units, | | 18 9:05 | Units | | | | Intravenous, WITH EACH DIALYSIS, | | AM PST | | | | | Starting [facility] 06/29/18 at 0721, | | | | | | | Dialysis | | | | | | + +-------+ +-------+---+---+ +---+---+ | | | +---+---+ + +-------+ +-------+---+---+ | heparin 1,000 units/mL | Given | 07/02/20 | 500 | | | | injection 500 Units 500 Units, | | 18 10:07 | Units | | | | Intravenous, WITH EACH DIALYSIS, | | AM PST | | | | | Starting [facility] 06/29/18 at 1448, | | | | | | | Dialysis | | | | | | + +-------+ +-------+---+---+ +-------+ +-------+---+---+ | Given | 06/30/20 | 500 | | | | | 18 12:58 | Units | | | | | PM PST | | | | +-------+ +-------+---+---+ +---+---+ | | | +---+---+ + +-------+ +-------+---+---+ | heparin 1,000 units/mL | Given | 07/04/20 | 500 | | | | injection 500 Units 500 Units, | | 18 7:51 | Units | | | | Intravenous, WITH EACH DIALYSIS, | | AM PST | | | | | Starting 07/04/18 at 0704 | | | | | | + +-------+ +-------+---+---+ +---+---+ | | | +---+---+ + +-------+ +-------+---+---+ | heparin 1,000 units/mL | Given | 07/07/20 | 500 | | | | injection 500 Units 500 Units, | | 18 8:24 | Units | | | | Intravenous, WITH EACH DIALYSIS, | | AM PST | | | | | Starting 07/07/18 at 0705, | | | | | | | Dialysis | | | | | | + +-------+ +-------+---+---+ +---+---+ | | | +---+---+ + +-------+ +-------+---+---+ | heparin 100 units/mL flush | Given | 06/28/20 | 600 | | | | injection 600 Units 600 Units (6 | | 18 3:58 | Units | | | | mL), Intracatheter, PRN, Line | | PM PST | | | | | Care, Starting 06/28/18 at | | | | | | | 1318 | | | | | | + +-------+ +-------+---+---+ +---+---+ | | | +---+---+ + +---------+ + +---------+---+ | heparin in half-normal saline | New Bag | 06/28/20 | 200 | 4 mL/hr | | | 50 units/mL infusion 200 | | 18 3:08 | Units/hr | | | | Units/hr (4 mL/hr), at 4 mL/hr, | | PM PST | | | | | Intravenous, CONTINUOUS, Starting | | | | | | | [facility] 06/28/18 at 1345, Dialysis | | | | | | + +---------+ + +---------+---+ +---+---+ | | | +---+---+ + +---------+ + +---------+---+ | heparin in half-normal saline | New Bag | 07/02/20 | 200 | 4 mL/hr | | | 50 units/mL infusion 200 | | 18 10:08 | Units/hr | | | | Units/hr (4 mL/hr), at 4 mL/hr, | | AM PST | | | | | Intravenous, CONTINUOUS PRN, Line | | | | | | | care, Starting [facility] 06/29/18 at | | | | | | | 1448, Dialysis | | | | | | + +---------+ + +---------+---+ +---+---+ | | | +---+---+ + +---------+ + +---------+---+ | heparin in half-normal saline | New Bag | 07/04/20 | 200 | 4 mL/hr | | | 50 units/mL infusion 200 | | 18 7:51 | Units/hr | | | | Units/hr (4 mL/hr), at 4 mL/hr, | | AM PST | | | | | Intravenous, CONTINUOUS, Starting | | | | | | | 07/04/18 at 0730 | | | | | | + +---------+ + +---------+---+ +---+---+ | | | +---+---+ + +---------+ + +---------+---+ | heparin in half-normal saline | New Bag | 07/07/20 | 200 | 4 mL/hr | | | 50 units/mL infusion 200 | | 18 8:24 | Units/hr | | | | Units/hr (4 mL/hr), at 4 mL/hr, | | AM PST | | | | | Intravenous, CONTINUOUS, Starting | | | | | | | 07/07/18 at 0730, Dialysis | | | | | | + +---------+ + +---------+---+ +---+---+ | | | +---+---+ + +-------+ +---------+---+ + | insulin lispro (humaLOG | Given | 07/08/20 | 1 Units | | Arm-Left | | KWIKPEN) injection (pen) 0-6 | | 18 1:08 | | | Upper | | Units 0-6 Units, Subcutaneous, 4 | | PM PST | | | | | TIMES DAILY WITH MEALS & | | | | | | | NIGHTLY, First dose on Mon | | | | | | | 06/26/18 at 1330, CORRECTION | | | | | | | SCALE: Blood Glucose (BG) < | | | | | | | 150: None BG | | | | | | | 150-200: DAY: 1 units. NIGHT: 0 | | | | | | | units BG 201-250: DAY: 2 units. | | | | | | | NIGHT: 1 units BG 251-300: | | | | | | | DAY: 3 units. NIGHT: 2 units | | | | | | | BG 301-350: DAY: 4 units. NIGHT: | | | | | | | 3 units BG 351-400: DAY: 5 | | | | | | | units. NIGHT: 4 units BG > | | | | | | | 400 : DAY: 6 units. NIGHT: 5 | | | | | | | units | | | | | | | AND CALL PROVIDER Use DAY DOSE | | | | | | | for doses scheduled: AC, | | | | | | | NPO, Daytime [id number] Use NIGHT | | | | | | | DOSE for doses scheduled: | | | | | | | HS, 3AM, Nighttime [id number], | | | | | | + +-------+ +---------+---+ + +-------+ +---------+---+ + | Given | 07/07/20 | 1 Units | | Arm-Left | | | 18 5:50 | | | Upper | | | PM PST | | | | +-------+ +---------+---+ + | Given | 07/07/20 | 1 Units | | Arm-Left | | | 18 12:25 | | | Upper | | | PM PST | | | | +-------+ +---------+---+ + +---+---+ | | | +---+---+ + + + +---------+-------+---+ | norepinephrine in saline | Rate/Dos | 06/29/20 | 1 | 3.8 | | | (LEVOPHED) 16 mcg/mL infusion | e Change | 18 4:15 | mcg/min | mL/hr | | | 1-30 mcg/min (3.75-112.5 mL/hr, | | PM PST | | | | | rounded to 3.8-112.5 mL/hr), at | | | | | | | 3.8-112.5 mL/hr, Intravenous, | | | | | | | TITRATED, Starting 06/26/18 at | | | | | | | 1345, Goal: SBP greater than 90, | | [...] + + +---------+-------+---+ | Rate/Dose Change | 06/29/20 | 2 | 7.5 | | | | 18 3:30 | mcg/min | mL/hr | | | | PM PST | | | | + + +---------+-------+---+ | Rate/Dose Change | 06/29/20 | 3 | 11.3 | | | | 18 1:51 | mcg/min | mL/hr | | | | AM PST | | | | + + +---------+-------+---+ +---+---+ | | | +---+---+ + +-------+ + +---+---+ | nystatin (MYCOSTATIN) 100,000 | Given | 07/08/20 | 500,000 | | | | units/mL suspension 500,000 Units | | 18 1:51 | Units | | | | 500,000 Units, [facility], 4 | | PM PST | | | | | TIMES DAILY, First dose on Sat | | | | | | | 07/01/18 at 1300, [place] s[facility]os, | | | | | | | Indications: Oropharyngeal | | | | | | | Candidiasis | | | | | | + +-------+ + +---+---+ +-------+ + +---+---+ | Given | 07/08/20 | 500,000 | | | | | 18 8:16 | Units | | | | | AM PST | | | | +-------+ + +---+---+ | Given | 07/07/20 | 500,000 | | | | | 18 9:44 | Units | | | | | PM PST | | | | +-------+ + +---+---+ +---+---+ | | | +---+---+ + +-------+ +------+---+ + | OLANZapine (zyPREXA) injection | Given | 06/30/20 | 5 mg | | Deltoid- | | 5 mg 5 mg, Intramuscular, ONCE, | | 18 12:43 | | | Left | | 06/30/18 at 1300, For 1 dose, | | PM PST | | | | | Mix with 2.1 mL sterile water to | | | | | | | make 5 mg/mL. Do not exceed 30 | | | | | | | mg/day., | | | | | | + +-------+ +------+---+ + +---+---+ | | | +---+---+ + +-------+ + +---+---+ | sevelamer carbonate (RENVELA) | Given | 07/02/20 | 1,600 mg | | | | tablet 1,600 mg 1,600 mg, Oral, | | 18 5:26 | | | | | 3 TIMES DAILY WITH MEALS, First | | PM PST | | | | | dose on Tue06/27/18 at 1300, Do | | | | | | | not cut or crush tablets., | | | | | | + +-------+ + +---+---+ +-------+ + +---+---+ | Given | 07/01/20 | 1,600 mg | | | | | 18 4:24 | | | | | | PM PST | | | | +-------+ + +---+---+ | Given | 07/01/20 | 1,600 mg | | | | | 18 11:41 | | | | | | AM PST | | | | +-------+ + +---+---+ +---+---+ | | | +---+---+ + +---------+ +--------+-------+---+ | sodium chloride 0.9% (NS) bolus | New Bag | 06/26/20 | 1,000 | 2000 | | | 1,000 mL 1,000 mL, Intravenous, | | 18 12:00 | mLs | mL/hr | | | Administer over 30 Minutes, | | PM PST | | | | | ONCE, 06/26/18 at 1200, For 1 | | | | | | | dose | | | | | | + +---------+ +--------+-------+---+ +---+---+ | | | +---+---+ + +---------+ +---------+-------+---+ | sodium chloride 0.9% (NS) bolus | New Bag | 06/26/20 | 500 mLs | 500 | | | 500 mL 500 mL, Intravenous, | | 18 10:12 | | mL/hr | | | Administer over 1 Hours, ONCE, | | AM PST | | | | | 06/26/18 at 0820, For 1 dose | | | | | | + +---------+ +---------+-------+---+ +---+---+ | | | +---+---+ + +---------+ +---------+-------+---+ | sodium chloride 0.9% (NS) bolus | New Bag | 06/26/20 | 500 mLs | 500 | | | 500 mL 500 mL, Intravenous, | | 18 11:30 | | mL/hr | | | Administer over 1 Hours, ONCE, | | AM PST | | | | | 06/26/18 at 1035, For 1 dose | | | | | | + +---------+ +---------+-------+---+ +---+---+ | | | +---+---+ + +---------+ +---------+ +---+ | sodium chloride 0.9% (NS) | New Bag | 07/03/20 | 500 mLs | 15 mL/hr | | | infusion at 10-100 mL/hr, | | 18 3:02 | | | | | Intravenous, CONTINUOUS, Starting | | PM PST | | | | | 07/03/18 at 1500, TKO. Use | | | | | | | this instead of LR if both are | | | | | | | ordered., Pre-op | | | | | | + +---------+ +---------+ +---+ +---+---+ | | | +---+---+ + +-------+ +---------+---+---+ | sodium chloride 0.9% flush 100 | Given | 06/29/20 | 100 mLs | | | | mL 100 mL, Intracatheter, EVERY | | 18 9:59 | | | | | 30 MIN PRN, Line Care, Starting | | AM PST | | | | | Silvia 06/29/18 at 0920, | | | | | | | Pre-dialyzer, Dialysis | | | | | | + +-------+ +---------+---+---+ +---+---+ | | | +---+---+ + +-------+ +---------+---+---+ | sodium chloride 0.9% flush 100 | Given | 06/30/20 | 100 mLs | | | | mL 100 mL, Intracatheter, EVERY | | 18 1:10 | | | | | 30 MIN PRN, Line Care, Starting | | PM PST | | | | | Silvia 06/29/18 at 1448, Dialysis | | | | | | + +-------+ +---------+---+---+ +---+---+ | | | +---+---+ + +-------+ +-------+---+---+ | traZODone (DESYREL) tablet 50 | Given | 07/07/20 | 50 mg | | | | mg 50 mg, Oral, NIGHTLY, First | | 18 9:44 | | | | | dose on 06/26/18 at 2145 | | PM PST | | | | + +-------+ +-------+---+---+ +-------+ +-------+---+---+ | Given | 07/06/20 | 50 mg | | | | | 18 8:23 | | | | | | PM PST | | | | +-------+ +-------+---+---+ | Given | 07/05/20 | 50 mg | | | | | 18 9:11 | | | | | | PM PST | | | | +-------+ +-------+---+---+ +---+---+ | | | +---+---+ + +---------+ +-----+--------+---+ | vancomycin 1 g in sodium | New Bag | 06/27/20 | 1 g | 166.7 | | | chloride 0.9% 250 mL IVPB 1 g, | | 18 5:49 | | mL/hr | | | Intravenous, Administer over 90 | | PM PST | | | | | Minutes, ONCE, 06/27/18 at | | | | | | | 1730, For 1 dose, Activate system | | | | | | | and mix before use., | | | | | | | Indications: Community Acquired | | | | | | | Pneumonia, NON-PURULENT SKIN AND | | | | | | | SOFT TISSUE INFECTION | | | | | | + +---------+ +-----+--------+---+ +---+---+ | | | +---+---+ + +---------+ + +-------+---+ | vancomycin 1,250 mg in sodium | New Bag | 06/26/20 | 1,250 mg | 175 | | | chloride 0.9% 250 mL IVPB 1,250 | | 18 4:56 | | mL/hr | | | mg (rounded from 1,252.5 mg = 15 | | PM PST | | | | | mg/kg | | | | | | | 83.5 kg Adjusted weight), | | | | | | | Intravenous, Administer over 90 | | | | | | | Minutes, ONCE, 06/26/18 at | | | | | | | 1345, For 1 dose, Keep in | | | | | | | refrigerator., Indications: SKIN | | | | | | | AND SOFT TISSUE ABSCESS | | | | | | + +---------+ + +-------+---+ +---+---+ | | | +---+---+ documented in this encounter Additional Health Concerns + + + + | Infection | Noted Time | Resolved Time | + + + + | Other | 07/03/2018 9:08 AM | 07/08/2018 3:20 PM | | | PST | PST | + + + + documented as of this encounter
--- OUTSIDE RECORDS SUMMARY | ~2019-07-14 | XMS | Clinical Summary ---
Demographics + + + | Address | [address] | | | [place] [address] | + + + | Home Phone | | + + + | Preferred Language | Unknown | + + + | Marital Status | | + + + | Church Affiliation | Unknown | + + + | Race | or | + + + | Ethnic Group | Not or | + + + Author + + + | Author | [facility] | + + + | Organization | [facility] | + + + | Address | Unknown | + + + | Phone | Unavailable | + + + Support + + +---------+ + | Name | Relationship | Address | Phone | + + +---------+ + | Kalia Kerr | ECON | Unknown | | + + +---------+ + Care Team Providers + +------+ + | Care Manager Environmental Name | Role | Phone | + +------+ + | Gregory Drummond MD | PCP | | + +------+ + Source Comments BRIAN is fully live on both [facility] Ambulatory and [facility] InPatient.[facility] Allergies Not on File Medications Not on file Active Problems Not on file Social History + +-------+ +--------+------+ | Tobacco [...] | + + Last Filed Vital Signs Not on file Plan of Treatment +--------+---------+ + + + | Date | Type | Specialty | Care Team | Description | +--------+---------+ + + + | 07/30/ | Office | Spine | Lyle Nj MD | | | 2020 | Visit | | [address] | | | | | | [place], | | | | | | [place] [address] | | | | | | [phone] | | | | | | | | +--------+---------+ + + + + + + + + | Health Maintenance | Due Date | Last Done | Comments | + + + + + | Pneumococcal | | 07/08/2014, 09/17/2004, | | | vaccination (2 of 2 | 2 | 05/19/1995 | | | - PPSV23) | | | | + + + + + | Influenza (Flu) | | 04/11/2017, 05/14/2008, | | | vaccination (#1) | 9 | 05/12/2007, Additional history | | | | | exists | | + + + + + Results Not on filefrom Last 3 Months Insurance + +--------+ +--------+ + +--------+ | Payer | Benefi | Subscriber | Effect | Phone | Address | Type | | | t Plan | ID | eugenio | | | | | | / | | Dates | | | | | | Group | | | | | | + +--------+ +--------+ + +--------+ | MEDICARE | MEDICA | xxxxxxxxxxx | | [phone] | [address] | [address] | | | RE A & | | [phone] | [address] | | | [address] | | [address]aran | | [place] | | | | | | | | [id number] | | + +--------+ +--------+ + +--------+ | [employer] | AARP | xxxxxxxxxxx | 07/25/19 | [phone] | [address] | Indemn | | RETIRED PEOPLE | | | 19-Pre | [phone] [id number] | ity | | | | | sent | | [place], [place] | | | | | | | | [address] | | + +--------+ +--------+ + +--------+ | [facility] | | xxx | 07/12/ | | | Agency | | SERVICE | | | 2019-P | | | | | | HEALTH | | resent | | | | | | | | | | | | | | SERVIC | | | | | | | | E | | | | | | + +--------+ +--------+ + +--------+ + +--------+ +--------+ + + | Guarantor Name | Accoun | Relation to | Date | Phone | Billing Address | | | t Type | Patient | of | | | | | | | | | | + +--------+ +--------+ + + | David Kerr | Person | Self | [birth year] | [address] | | | al/Fam | | 1946 | [phone] | [place] [address] | | | eliane | | | 4 (Home) | | + +--------+ +--------+ + +"
--- OUTSIDE RECORDS SUMMARY | ~2019-07-14 | XMS | Encounter Summary ---
Demographics + + + | Address | [address] | | | [place] [address] | + + + | Home Phone | | + + + | Preferred Language | Unknown | + + + | Marital Status | | + + + | Orthodoxy Affiliation | 1041 | + + + | Race | Unknown | + + + | Ethnic Group | Unknown | + + + Author + + + | Author | [facility] | | | and [place] | + + + | Organization | [facility] | | | and [place] | + + + | Address | Unknown | + + + | Phone | Unavailable | + + + Support + + + + + | Name | Relationship | Address | Phone | + + + + + | Lula Kerr | ECON | [address] | | | | | [place] | | | | | [address] | | + + + + + Care Team Providers + +------+ + | Care Building Maintenance Superintendent Name | Role | Phone | + +------+ + | Gregory Drummond MD | PCP | | + +------+ + Reason for Visit + + + | Reason | Comments | + + + | Dialysis | | | (Asymptomatic) | | + + + Encounter Details +--------+ + + + + | Date | Type | Department | Care Team | Description | +--------+ + + + + | 12/13/ | Documentati | [facility] | Silvina Alcantar W, | Dialysis | | 2019 | on | NEPHROLOGY [address] | MD [address] | (Asymptomatic) | | | | [address] | [address] [place] | | | | | [place], [place] | [place] [address] | | | | | [address] | [phone] | | | | | [phone] | | | +--------+ + + + [...] 2018 | Visit | | DO Rolan [address] [place] [address] | | | | | | [address] | | | | | | [place] | | | | | | [address] | | | | | | | | +--------+ + + + + | 09/25/ | Office | Cardiology | Sheldon Spence | | | 2019 | Visit | | MD [address] | | | | | | [address] [facility] | | | | | | [place] | | | | | | [id number] | | | | | | | | +--------+ + + + + | 09/25/ | Procedure | Cardiology | | | | 2019 | visit | | | | +--------+ + + + + | 11/28/ | Office | Cardiology | Natalie Luo DO | | | 2019 | Visit | | [address] | | | | | | [place], [place] | | | | | | [address] | | | | | | | | +--------+ + + + + documented as of this encounter Visit Diagnoses + + | Diagnosis | + + | ESRD (end stage renal disease) on dialysis (HCC) - Primary End stage renal disease | + + | Anemia due to chronic kidney disease, on chronic dialysis (HCC) | + + | Secondary hyperparathyroidism of renal origin (HCC) Secondary hyperparathyroidism (of | | renal origin) | + + | Ischemic cardiomyopathy Other specified forms of chronic ischemic heart disease | + + | Malfunction of arteriovenous dialysis fistula, initial encounter (HCC) | + + documented in this encounter Additional Health Concerns + + + + | Infection | Noted Time | Resolved Time | + + + + | Methicillin-resistant Staphylococcus aureus | 10/30/2018 9:33 AM | | | | PDT | | + + + + documented as of this encounter"
--- OUTSIDE RECORDS SUMMARY | ~2019-07-14 | XMS | Encounter Summary ---
Demographics + + + | Address | [address] | | | [place] [address] | + + + | Home Phone | | + + + | Preferred Language | Unknown | + + + | Marital Status | | + + + | Mormonism Affiliation | 1041 | + + + | Race | Unknown | + + + | Ethnic Group | Unknown | + + + Author + + + | Author | [facility] | | | and [place] | + + + | Organization | [facility] | | | and [place] | + + + | Address | Unknown | + + + | Phone | Unavailable | + + + Support + + + + + | Name | Relationship | Address | Phone | + + + + + | Lula Kerr | ECON | [address] | | | | | [place] | | | | | [address] | | + + + + + Care Team Providers + +------+ + | Care Dry Kiln Operator Name | Role | Phone | + [...] NEPHROLOGY [address] | MD [address] | | | | | [address] | [address] [place] | | | | | [place], [place] | [place] [address] | | | | | [address] | [phone] | | | | | [phone] | | | +--------+ + + + [...] [place] | | | | | | [address] | | | | | | | | +--------+ + + + + | 09/25/ | Office | Cardiology | Sheldon Spence | | | 2019 | Visit | | MD [address] | | | | | | [address] | | | | | | [place] | | | | | | [address] | | | | | | | [...] [place] | | | | | | [address] | | | | | | | [...]
--- OUTSIDE RECORDS SUMMARY | ~2019-07-14 | XMS | Encounter Summary ---
Demographics + + + | Address | [address] | | | [place] [address] | + + + | Home Phone | | + + + | Preferred Language | Unknown | + + + | Marital Status | | + + + | Nondenominational Affiliation | 1041 | + + + | Race | Unknown | + + + | Ethnic Group | Unknown | + + + Author + + + | Author | [facility] | | | and [place] | + + + | Organization | [facility] | | | and [place] | + + + | Address | Unknown | + + + | Phone | Unavailable | + + + Support + + + + + | Name | Relationship | Address | Phone | + + + + + | Lula Kerr | ECON | [address] | | | | | [place] | | | | | [address] | | + + + + + Care Team Providers + +------+ + | Care Rodding Anode Worker Name | Role | Phone | [...] | NEPHROLOGY [address] | [address] | Management | | | | [address] | [address] [place] | ([place]) | | | | [place], [place] | [place] [address] | | | | | [address] | [phone] | | | | | [phone] | | | +--------+ + + + [...] | Visit | | DO Rolan [address] | | | | | | [address] | | | | | | [place] | | | | | | [address] | | | | | | | | +--------+ + + + + | 09/25/ | Office | Cardiology | Sheldon Spence | | | 2019 | Visit | | [address] | | | | | | [address] | | | | | | [place] | | | | | | [address] | | | | | | | | +--------+ + + + + | 09/25/ | Procedure | Cardiology | | | | 2019 | visit | | | | +--------+ + + + + | 11/28/ | Office | Cardiology | Natalie Luo DO | | | 2020 | Visit | | [address] | | | | | | [facility] [facility] | | | | | | [address] | | | | | | | [...]
--- OUTSIDE RECORDS SUMMARY | ~2019-07-14 | XMS | Encounter Summary ---
Demographics + + + | Address | [address] | | | [place] [address] | + + + | Home Phone | | + + + | Preferred Language | Unknown | + + + | Marital Status | | + + + | Restorationist Affiliation | 1041 | + + + | Race | Unknown | + + + | Ethnic Group | Unknown | + + + Author + + + | Author | [facility] | | | and [place] | + + + | Organization | [facility] | | | and [place] | + + + | Address | Unknown | + + + | Phone | Unavailable | + + + Support + + + + + | Name | Relationship | Address | Phone | + + + + + | Lula Kerr | ECON | [address] | | | | | [place] | | | | | [address] | | + + + + + Care Team Providers + +------+ + | Care Development Vice President Name | Role | Phone | + +------+ + | Gregory Drummond MD | PCP | | + +------+ + Reason for Visit + + + | Reason | Comments | + + + | Follow-up | | + + + Service/Procedure (Routine) +--------+--------+ + + + + | Status | Reason | Specialty | Diagnoses / | Referred By | Referred To | | | | | Procedures | Contact | Contact | +--------+--------+ + + + + | Closed | | | Diagnoses | Bebe, | Bebe, | | | | | FU 6 wks | Sheldon | Sheldon | | | | | Maryuri | MD Paul | MD Paul | | | | | CRD FOLLOW | [address] | | | | [address] | [address], [place] | | | | | | Drive, [place] | [place], | | | | | | [place], | [place] [address] | | | | | | [place] [address] | Phone: | | | | | | Phone: | [phone] | | | | | | [phone] | Fax: | | | | | | Fax: | [phone] | | | | | | [phone] | | +--------+--------+ + + + + Encounter Details +--------+---------+ + + + | Date | Type | Department | Care Team | Description | +--------+---------+ + + + | 03/21/ | Office | [facility] | Sheldon Johnson | Ischemic | | 2019 | Visit | CARDIOLOGY [place] | MD [address] | cardiomyopathy | | | | [address] | [address], [place] | (Primary Dx); | | | | [place] | [place] | Ventricular | | | | [address] | [phone] | tachycardia (HCC); | | | | [phone] | | Complete heart block | | | | | | (HCC); Status post | | | | | | internal cardiac | | | | | | defibrillator | | | | | | procedure; Permanent | | | | | | atrial fibrillation | | | | | | (HCC); | | | | | | Gastrointestinal | | | | | | hemorrhage, | | | | | | unspecified | | | | | | gastrointestinal | | | | | | hemorrhage type; | | | | | | Obstructive sleep | | | | | | apnea syndrome | +--------+---------+ + + + Social History [...] + + + | Blood Pressure | 90/56 | 03/21/2019 3:07 PM | | | | | PDT | | + + + + + | Pulse | 71 | 03/21/2019 3:07 PM | | | | | PDT | | + + + + + | Temperature | - | - | | + + + + + | Respiratory Rate | - | - | | + + + + + | Oxygen Saturation | 90% | 03/21/2019 3:07 PM | | | | | PDT | | + + + + + | Inhaled Oxygen | - | - | | | Concentration | | | | + + + + + | Weight | 103.1 kg (227 lb 6.4 | 03/21/2019 3:07 PM | | | | oz) | PDT | | + + + + + | Height | 170.2 cm (5' 7") | 03/21/2019 3:07 PM | | | | | PDT | | + + + + + | Body Mass Index | 35.62 | 03/21/2019 3:07 PM | | | | | PDT | | + + + + + documented in this encounter Progress Notes Sheldon Johnson MD - 03/21/2019 3:15 PM PDTFormatting of this note might be dif ferent from the original. Subjective: Referring MD: Sheldon Johnson* Chief Complaint Patient presents with Follow-up HPI: This is a 73 y.o. male who presents today for follow-up of ventricular tachycardia and his biventricular pacemaker/ICD. Mr. Kerr reports he spoke with his primary physician [facility] his last visit and decided not to proceed with cardiac catheterization. He continues on h emodialysis and has not had any issues recently. He did not start a beta-cheli recommende d at his previous visit. He has not had a GI evaluation. He denies any current chest pain, shortness of breath, dizziness, lightheadedness, palpitations, or recent syncope. Past Medical History: Diagnosis Date Acute metabolic encephalopathy Arteriosclerotic cardiovascular disease Arthralgia Atrial fibrillation (HCC) permanent - not on AC due to GI bleed 2015 - declined HENRI occlusion Cellulitis of left lower extremity Chest pain Chest pain Claustrophobia Complete heart block (HCC) 01/28 Congestive heart failure (HCC) Coronary artery disease s/p CABG x4 12/01 End stage renal disease (HCC) on HD - right IJ PermaCath - right UE AVF Gastrointestinal hemorrhage associated with gastric ulcer 08/20/2016 Gout Hemodialysis patient (HCC) - tue Hypercholesteremia Hyperlipidemia 10/19/2018 Hypertension Ischemic cardiomyopathy Left arm pain Left bundle branch block (LBBB) 11/18/2017 Obesity Old myocardial infarction 1997 Pneumonia Pneumonia due to infectious organism Pulmonary [...] tachycardia (HCC) 12/10 - s/p ATP x1 Past Surgical History: Procedure Laterality Date AV FISTULA INSERTION Right 09/05/2018 Procedure: RIGHT arm AVF; Surgeon: Amilcar Hampton MD, FACS; Location: [facility] MAIN OR BACK SURGERY CARDIAC CATHERIZATION CARDIAC SURGERY CARDIOVASCULAR STRESS TEST 10/2018 Persantine SPECT: reversible anterior, apical. anteroseptal, inferoapical defect, EF 36% CATARACT REMOVAL WITH IMPLANT Left 09/16/2014 Procedure: Left Cataract Extraction w/ IOL Implant; Surgeon: Charisse Santana MD; Loc ation: [facility] MAIN OR CATARACT REMOVAL WITH IMPLANT Right 10/14/2014 Procedure: Right Cataract Extraction w/ IOL Implant; Surgeon: Charisse Santana MD; Lo cation: [facility] MAIN OR CORONARY ANGIOPLASTY CORONARY ARTERY BYPASS GRAFT CORONARY ARTERY BYPASS GRAFT EGD AND COLONOSCOPY N/A 12/18/2015 Procedure: EGD / COLONOSCOPY - bmi 44 - has pacemaker defibrilator ; Surgeon: Meredith forbes MD; Location: [facility] MEDICAL PROCEDURE UNIT IR PROCEDURE Right 12/14/2018 Procedure: Fistulagram; Surgeon: Velasquez Hayes MD; Location: [facility] INTERVENTIONAL RADIOLO GY KNEE SURGERY Right OTHER SURGICAL HISTORY UNLISTED PROCEDURE ARTHROSCOPY pacemaker medtronic PACEMAKER INSERTION SHUNT PLACEMENT/INSERTION Right 07/03/2018 Procedure: INSERTION SHUNT HEMODIALYSIS W/ PERMACATH; Surgeon: Melba Wallace MD; L ocation: [facility] MAIN OR TRANSTHORACIC ECHOCARDIOGRAM 10/2018 EF 30-35%, anterior HK, mod RV dil, Ao 4.06, RVSP 45 History reviewed. No pertinent family history. Social History Socioeconomic History Marital status: Spouse name: Not on file Number of children: Not on file Years of education: Not on file Highest education level: Not on file Tobacco Use Smoking status: Former Smoker Packs/day: 1.00 Years: 30.00 Pack years: 30.00 Types: Cigarettes Last attempt to quit: 07/25/2001 Years since quittin.6 Smokeless tobacco: Former User Types: Chew Quit date: 07/13/2018 Tobacco comment: every once in a while Substance and Sexual Activity Alcohol use: Yes Comment: Alcoholic Drinks/day: 1-2 beers in the summer, socially. Drug use: No Comment: Drug use: No Review of Systems: Ten system review negative unless noted in HPI. Current Outpatient Medications Medication Sig Dispense Refill [...] morning (before breakfast ). 30 tablet 0 omeprazole (PRILOSEC) 40 MG capsule Take 40 mg by mouth every morning (before breakfast ). triamcinolone (NASACORT) 55 mcg/nasal spray by Nasal route as needed. No current facility-administered medications for this visit. Allergies Allergen Reactions Morphine Other (See Comments) Became really mean Changes personality to "mean" "get mean" Objective: Vitals: 03/21/19 1507 BP: 90/56 Pulse: 71 Weight: 103.1 kg (227 lb 6.4 oz) Height: 1.702 m (5' 7") Body mass index is 35.62 kg/m. Exam: General: Patient is alert, pleasant, cooperative, and in no acute distress. Eyes: Sclerae anicteric. Ears: External ears normal. Nose: External nose normal. Oral exam: No oral lesions noted. Neck: Trachea midline. No thyromegaly. No elevation of jugular venous pressure. No headley tid bruits. Lungs: Clear to auscultation bilaterally. No wheezes, rales, or rhonchi. Heart: Regular rate and rhythm. Normal S1/S2. No murmurs, gallops, rubs. Abdomen: Bowel sounds present. Soft, nondistended. No masses or hepatosplenomegaly noted . No significant tenderness noted. Extremities: No clubbing or cyanosis noted. No lower extremity edema noted. Pulses: Intact bilateral radial and pedal pulses. Musculoskeletal: No obvious arthritic change noted of the knees. Skin: Warm and dry. Psychiatric: Patient is alert and oriented to person, place, and day. Mood and affect nor mal. Neurological: Patient is intact to light touch in the upper and lower extremities bilateral ly. Left pocket: Incision is well-healed with no erythema, induration, discharge, or pre-erosio n Review of studies: ECG: Atrial fibrillation with ventricular pacing at 73 bpm with evidence of biventricular p acing, ventricular premature complex, compared to the EKG of December 2018 a ventricular prematu re complex is noted Device Interrogation: His [employer] biventricular pacemaker/ICD was interrogated an d found to have stable sensing, pacing, and impedance values. Underlying rhythm is atrial f ibrillation with continued ventricular pacing at VVI 30. 2 nonsustained ventricular episode s were noted since last interrogation with no therapies delivered. He paces 93% of the time in the ventricle. Impression/Plan: David was seen today for follow-up. Diagnoses and all orders for this visit: Ischemic cardiomyopathy - ECG 12 lead Ventricular tachycardia (HCC) Complete heart block (HCC) Status post internal cardiac defibrillator procedure Permanent atrial fibrillation (HCC) Gastrointestinal hemorrhage, unspecified gastrointestinal hemorrhage type Obstructive sleep apnea syndrome 1) Ischemic cardiomyopathy - Mr. Boyce a history of coronary artery disease and status post CABG 4 in 2009. He has a prior history of complete heart block and underwent upgrad e of his pacemaker to a biventricular pacemaker/ICD in 2009. An echocardiogram performed at an outside hospital in October 2018 demonstrated an ejection fraction of 30 to 35%. Moderate right ventricular dilatation was noted at the time. He also had a pharmacologic stress raphael t at the same time which demonstrated reversible anterior, apical, anteroseptal, and inferoa pical defects with a gated ejection fraction of 36%. Given the more recent ventricular dysr hythmias and abnormal stress test cardiac catheterization has been recommended to reevaluate his coronary anatomy and offer revascularization if indicated. He scheduled to cardiac cat heterization but spoke with his primary physician and decided not to proceed. We again revi ewed the indication for cardiac catheterization given his high likelihood of progressive cor onary artery disease with recent ventricular dysrhythmias. He again declines cardiac cathet erization but he agrees to follow-up with cardiology in [place]. We also discussed restartin g a beta-cheli which had been recommended previously but he again declined. 2) Ventricular tachycardia - An episode of ventricular tachycardia was noted in early November 23. Antitachycardia pacing x1 resulted in termination of the dysrhythmia. He has had jed ral nonsustained ventricular tachycardia episodes since that time. An abnormal stress test was noted in October 2018 as discussed above. Cardiac catheterization has been recommended to reevaluate his coronary anatomy and offer revascularization if indicated. He has declined cardiac catheterization or the addition of further medications such as a beta-cheil. He i s aware of the risk of sudden from ventricular dysrhythmias. 3) Complete heart block - He has a history of complete heart block and is status post dual- chamber pacemaker in 2006. The pacemaker was then upgraded to a biventricular pacemaker/IC D in 2009. He is pacemaker dependent. 4) S/p biventricular pacemaker/ICD - He had a dual-chamber pacemaker implanted in 2006 for complete heart block as per records. The pacemaker was then upgraded to a biventricular pa cemaker/ICD in 2009. It is unclear as to whether his previous pacing system was removed or abandoned. A chest x-ray was recommended to evaluate his hardware but he did not have the test performed and declines imaging at this time. The original right atrial and right ventri cular pacing leads from 2006 were abandoned at the time of his upgrade to a biventricular pa cemaker/ICD in 2009 as per review of his chest x-ray performed during her recent hospitaliza tion. His device was interrogated today and found to be functioning normally in all respects . He agrees to a remote transmission in 3 months with follow-up in the office in 6 months. 5) Atrial fibrillation - He has a history of atrial fibrillation for many years. He was t aken off of anticoagulation at the time of a GI bleed in 2016 as per records.He is aware of the increased risk for stroke associated with atrial fibrillation and his multiple risk factors. He is not aware of a major bleeding episode in the last several years. He belie ves he may have had some blood in his stool but it is not clear if this was evaluated by gas troenterology. We previously had discussed anticoagulation and left atrial appendage occlus ion but he declined both. He is aware of the risk of stroke associated with his essentially permanent atrial fibrillation. I again recommended he consult with gastroenterology to ree valuate his bleeding risk. His rates are controlled given his complete heart block. 6) GI bleed - Hisrecords mentioned a GI bleed in 2016 but he is unaware of any major epis ode of bleeding. He believes he was told he had some blood in his stool in the past but do es not believe he had any workup. As above, I recommended he discuss the anticoagulation a nd previous GI bleed with his primary physician and consider referral for further evaluation . 7) Sleep apnea - He has a history of obstructive sleep apnea but has not been using CPAP. He is aware of the association of obstructive sleep apnea with atrial dysrhythmias. This encounter was dictated with voice recognition software and may contain inadvertent rec ognition errors. documented in this encounter Plan of Treatment +--------+ + + + + | Date | Type | Specialty | Care Team | Description | +--------+ + + + + | 07/16/ | Off-Site | Nephrology | Maty Tian | | | 2018 | Visit | | M, DO [address] [place] [address] | | | | | | [address] | | | | | | [place] | | | | | | [address] | | | | | | | | +--------+ + + + + | 09/25/ | Office | Cardiology | Sheldon Johnson | | | 2019 | Visit | | MD [address] | | | | | | [place] | | | | | | [place] | | | | | | [address] | | | | | | | [...] [place] | | | | | | [address] | | | | | | | | +--------+ + + + + documented as of this encounter Procedures + +--------+ + + + | Procedure Name | Priori | Date/Time | Associated Diagnosis | Comments | | | ty | | | | + +--------+ + + + | ECG 12 LEAD | Routin | 03/21/2019 | Ischemic | Results for this | | | e | 3:16 PM | cardiomyopathy | procedure are in the | | | | PDT | | results section. | + +--------+ + + + documented in this encounter Results ECG 12 lead (03/21/2019 3:16 PM PDT) + + + + + + | Component | Value | Ref Range | Performed | Pathologist | | | | | At | Signature | + + + + + + | VENTRICULAR | 73 | BPM | [facility] | | | RATE EKG | | | | | + + + + + + | ATRIAL RATE | 47 | BPM | [facility] | | + + + + + + | QRS | 170 | ms | [facility] | | | DURATION | | | | | + + + + + + | Q-T | 446 | ms | [facility] | | | INTERVAL | | | | | + + + + + + | Q-T | 491 | ms | [facility] | | | INTERVAL | | | | | | (CORRECTED) | | | | | + + + + + + | QRS AXIS | -155 | degrees | [facility] | | + + + + + + | T AXIS | 77 | degrees | [facility] | | + + + + + + | INTERPRETAT | Please refer to | | [facility] | | | ION TEXT | Providers office visit | | | | | | note for Providers | | | | | | Interpretation.Confirmed | | | | | | by [facility] Welcome Read Only, | | | | | | [facility] Kamille ([id number]), | | | | | | editor managing newspaper Dominic Patel | | | | | | ([id number]) on 03/21/2019 | | | | | | 5:21:36 PM | | | | + + + [...] | | disease | + + | Ventricular tachycardia (HCC) Paroxysmal ventricular tachycardia | + + | Complete heart block (HCC) Atrioventricular block, complete | + + | Status post internal cardiac defibrillator procedure Automatic implantable cardiac | | defibrillator in situ | + + | Permanent atrial fibrillation Atrial fibrillation | + + | Gastrointestinal hemorrhage, unspecified gastrointestinal hemorrhage type | + + | Obstructive sleep apnea syndrome Obstructive sleep apnea (adult) (pediatric) | + + documented in this encounter Additional Health Concerns + + + + | Infection | Noted Time | Resolved Time | + + + + | Methicillin-resistant Staphylococcus aureus | 10/30/2018 9:33 AM | | | | PDT | | + + + + documented as of this encounter
--- OUTSIDE RECORDS SUMMARY | ~2019-07-14 | XMS | Encounter Summary ---
Demographics + + + | Address | [address] | | | [place] [address] | + + + | Home Phone | | + + + | Preferred Language | Unknown | + + + | Marital Status | | + + + | Anglican Affiliation | 1041 | + + + | Race | Unknown | + + + | Ethnic Group | Unknown | + + + Author + + + | Author | [facility] | | | and [place] | + + + | Organization | [facility] | | | and [place] | + + + | Address | Unknown | + + + | Phone | Unavailable | + + + Support + + + + + | Name | Relationship | Address | Phone | + + + + + | Lula Kerr | ECON | [address] | | | | | [place] | | | | | [address] | | + + + + + Care Team Providers + +------+ + | Care Orchid Superintendent Name | Role | Phone | + +------+ + PCP | Unavailable | + +------+ + Encounter Details +--------+ + + + + | Date | Type | Department | Care Team | Description | +--------+ + + + + | 11/12/ | Hospital | [facility] | | | | 1999 - | Encounter | [facility] | | | | | | [address] [place] | | | | 11/25/ | | [place] [address] | | | | 2000 | | [phone] | | | +--------+ + + + [...] 2019 | Visit | | DO Rolan [address] [place] [address] | | | | | | [address] | | | | | | [place] | | | | | | [id number] | | | | | | | | +--------+ + + + + | 09/25/ | Office | Cardiology | Sheldon Spence | | | 2019 | Visit | | MD [address] | | | | | | [place] | | | | | | [place] | | | | | | [address] | | | | | | | [...] [place] | | | | | | [address] | | | | | | | | +--------+ + + + + documented as of this encounter Visit Diagnoses Not on filedocumented in this encounter"
--- OUTSIDE RECORDS SUMMARY | ~2019-07-14 | XMS | Encounter Summary ---
Demographics + + + | Address | [address] | | | [place] [address] | + + + | Home Phone | | + + + | Preferred Language | Unknown | + + + | Marital Status | | + + + | Adventism Affiliation | 1041 | + + + | Race | Unknown | + + + | Ethnic Group | Unknown | + + + Author + + + | Author | [facility] | | | and [place] | + + + | Organization | [facility] | | | and [place] | + + + | Address | Unknown | + + + | Phone | Unavailable | + + + Support + + + + + | Name | Relationship | Address | Phone | + + + + + | Lula Kerr | ECON | [address] | | | | | [place] | | | | | [address] | | + + + + + Care Team Providers + +------+ + | Care Bezel Cutter Name | Role | Phone | + +------+ + | Gregory Drummond MD | PCP | | + +------+ + Encounter Details +--------+---------+ + + + | Date | Type | Department | Care Team | Description | +--------+---------+ + + + | 12/17/ | Surgery | [facility] | Meredith Medina MD | EGD / COLONOSCOPY - | | 2016 | | MED CTR MP INTRA OP | [address] | bmi 44 - has | | | | [address] | [place], [place] | pacemaker | | | | [place] | [address] | defibrilator | | | | [address] | [phone] | | | | | [phone] | | | +--------+---------+ + + + [...] + + + | Blood Pressure | 111/58 | 12/18/2015 10:45 AM | | | | | PDT | | + + + + + | Pulse | 59 | 12/18/2015 10:45 AM | | | | | PDT | | + + + + + | Temperature | 36.5 C (97.7 F) | 12/18/2015 10:19 AM | | | | | PDT | | + + + + + | Respiratory Rate | 16 | 12/18/2015 10:45 AM | | | | | PDT | | + + + + + | Oxygen Saturation | 99% | 12/18/2015 10:45 AM | | | | | PDT | | + + + + + | Inhaled Oxygen | - | - | | | Concentration | | | | + + + + + | Weight | 119.3 kg (263 lb) | 12/18/2015 8:00 AM | | | | | PDT | | + + + + + | Height | 170.2 cm (5' 7") | 12/18/2015 8:00 AM | | | | | PDT | | + + + + + | Body Mass Index | 41.19 | 12/18/2015 8:00 AM | | | | | PDT | | + + + + + documented in this encounter Medications at Time [...] | + + + +---------+--------+ + | glimepiride | Take 1-2 mg by mouth | | 0 | | | | (AMARYL) 2 MG tablet | every morning | | | | 8 | | | (before breakfast). | | [...] 2018 | Visit | | DO Rolan [address] [place] [address] | | | | | | [address] | | | | | | [place] | | | | | | [address] | | | | | | | | +--------+ + + + + | 09/25/ | Office | Cardiology | Sheldon Spence | | | 2019 | Visit | | MD [address] | | | | | | [address] | | | | | | [place] | | | | | | [phone] | | | | | | | [...] [place] | | | | | | [address] | | | | | | | | +--------+ + + + + documented as of this encounter Procedures + +--------+ + + + | Procedure Name | Priori | Date/Time | Associated Diagnosis | Comments | | | ty | | | | + +--------+ + + + | EGD / COLONOSCOPY | | 12/18/2015 | Obstructive sleep | | | | | 9:46 AM | apnea Morbid | | | | | PDT | obesity, unspecified | | | | | | obesity type (HCC) | | | | | | Acute | | | | | | gastrointestinal | | | | | | bleeding | | + +--------+ + + + | POC GLUCOSE | Routin | 12/18/2015 | | Results for this | | | e | 8:57 AM | | procedure are in the | | | | PDT | | results section. | + +--------+ + + + | SURGICAL PATHOLOGY | Routin | 12/18/2015 | | Results for this | | EXAM | e | 12:00 AM | | procedure are in the | | | | PDT | | results section. | + +--------+ + + + | DEVICE INTERROGATION | | 12/17/2015 | | Results for this | | - EXTERNAL SCAN | | 12:00 AM | | procedure are in the | | | | PDT | | results section. | + +--------+ + + + documented in this encounter Results POC Glucose (12/18/2015 8:57 AM PDT) + +-------+ + + + | Component | Value | Ref Range | Performed | Pathologist | | | | | At | Signature | + +-------+ + + + | Glucose, | 96 | 70 - 150 mg/dL | [facility] | | | POC [...] [address] | [place] | [phone] | | [facility] | | [address] | | | - LABORATORY | | | | + + + + + Surgical Pathology Exam (12/18/2015 12:00 AM PDT) + + | Specimen | + + | | + + + + + | Narrative | Performed At | + + + | SPECIMEN(S): A GASTRIC BIOPSY SPECIMEN(S): B RECTOSIGMOID POLYP | [facility] | | SPECIMEN(S): C ASCENDING COLON POLYPS SPECIMEN(S): D TRANSVERSE COLON | [facility] | | POLYP SPECIMEN SOURCE: A. GASTRIC BIOPSY B. RECTOSIGMOID POLYP | | | C. ASCENDING COLON POLYPS D. TRANSVERSE COLON POLYP CLINICAL | | | HISTORY: G47.33 (obstructive sleep apnea [adult] [pediatric]), E66.01 | | | (morbid [severe] obesity due to excess calories), K92.2 | | | (gastrointestinal hemorrhage, unspecified) MICROSCOPIC | | | DESCRIPTION: Histologic sections of all submitted blocks are examined | | | by light microscopy. These findings, together with the gross | | | examination, support the pathologic diagnosis. FINAL PATHOLOGIC | | | DIAGNOSIS: A. Stomach, biopsy: - Gastric antral type mucosa with | | | areas of acute erosive gastritis. - Unremarkable gastric body type | | | mucosa. - Negative for H. pylori by HE stain. - Negative for | | | intestinal metaplasia, dysplasia or malignancy. B. Rectosigmoid | | | colon polyp, biopsy: - Tubular adenoma. C. Ascending colon | | | polyps, biopsy: - Fragments of tubular adenoma. - Fragments of | | | benign colonic mucosa. D. Transverse colon polyps, biopsy: - | | | Fragments of hyperplastic polyp. IRG:[facility]:C2NR GROSS | | | DESCRIPTION: A. The specimen, received in formalin, labeled "Cirilo, | | | gastric biopsy," consists of six mohr tissue fragments averaging 0.2 cm | | | in greatest dimension. Submitted intact in cassette (A1). B. | | | The specimen, received in formalin, labeled "Cirilo, rectosigmoid | | | polyp," consists of a 0.5 cm, mohr polyp and large portion of vegetable | | | matter. The polyp is trisected and the entire specimen is | | | submitted in cassette (B1). C. The specimen, received in | | | formalin, labeled "Cirilo, ascending colon polyps," consists of five mohr | | | tissue fragments and vegetable matter averaging 0.2 cm in greatest | | | dimension. Submitted intact in cassette (C1). D. The | | | specimen, received in formalin, labeled "Cirilo, transverse colon | | | polyps," consists of two mohr tissue fragments, both 0.3 cm in greatest | | | dimension. Submitted intact in cassette (D1). tn:[facility]: | | | PERFORMING LABORATORY: Tissue processing and slide preparation were | | | performed by [facility], [address] [facility] | | | [place] [address] (Cargo Tank Mechanic: Delano Le D.O..; CLIA#: | | | [id number]). Professional interpretation was performed at [facility] | | | [address], [address], [place] [address] | | | (CLIA#: [id number]). Diagnostician: Davidson Cam MD | | | Pathologist Electronically Signed 12/19/2015 | | + + + + +---------+ + + | Performing | Address | City/State/Zipcode | Phone Number | | Organization | | | | + +---------+ + + | [facility] | | | | | [facility] | | | | + +---------+ + + DEVICE INTERROGATION - EXTERNAL SCAN (12/17/2015 12:00 AM PDT) + + + | Narrative | Performed At | + + + | Ordered by an | | | unspecified provider. | | + + + documented in this encounter Visit Diagnoses + + | Diagnosis | + + | Obstructive sleep apnea Obstructive sleep apnea (adult) (pediatric) | + + | Morbid obesity, unspecified obesity type (HCC) | + + | Acute gastrointestinal bleeding Hemorrhage of gastrointestinal tract, unspecified | + + documented in this encounter
--- OUTSIDE RECORDS SUMMARY | ~2019-07-14 | XMS | Encounter Summary ---
Demographics + + + | Address | [address] | | | [place] [address] | + + + | Home Phone | | + + + | Preferred Language | Unknown | + + + | Marital Status | | + + + | Christianity Affiliation | 1041 | + + + | Race | Unknown | + + + | Ethnic Group | Unknown | + + + Author + + + | Author | [facility] | | | and [place] | + + + | Organization | [facility] | | | and [place] | + + + | Address | Unknown | + + + | Phone | Unavailable | + + + Support + + + + + | Name | Relationship | Address | Phone | + + + + + | Lula Kerr | ECON | [address] | | | | | [place] | | | | | [address] | | + + + + + Care Team Providers + +------+ + | Care Rehabilitation Services Aide Name | Role | Phone | + +------+ + | Gregory Drummond MD | PCP | | + +------+ + Reason for Visit + + + | Reason | Comments | + + + | Procedure | Cath removal | + + + Evaluate & Treat (Routine) + +--------+ + + + + | Status | Reason | Specialty | Diagnoses / | Referred By | Referred To | | | | | Procedures | Contact | Contact | + +--------+ + + + + | Authorized | | Surgery / | Diagnoses | Gregory Drummond | , | | | | General | [address] | MD Rolan [address] | Amilcar Nelson, | | | | Surgery | ARM AVF OR | [address] | [address] | | | | | AV GRAFT/B | [place], | [address] | | | | | Procedures | [place] | [place], | | | | | [place] | [address] | [place] [address] | | | | | | Phone: | Phone: | | | | | | [phone] | [phone] | | | | | | Fax: | Fax: | | | | | | [phone] | [phone] | + +--------+ + + + + Encounter Details +--------+ + + + + | Date | Type | Department | Care Team | Description | +--------+ + + + + | 11/23/ | Procedure | [facility] | Melba Wallace | Vascular dialysis | | 2019 | visit | SURGERY [address] | MD Mik[address] | catheter in place | | | | [place], [place] | [facility] | ([facility]) (Primary Dx); | | | | [address] | [place] [address] | ESRD (end stage | | | | [phone] | [phone] | renal disease) ([facility]) | | | | | | | [...] + + + | Blood Pressure | 100/40 | 11/23/2018 2:23 PM | | | | | PDT | | + + + + + | Pulse | 52 | 11/23/2018 2:23 PM | | | | | PDT | | + + + + + | Temperature | 36.9 C (98.5 F) | 11/23/2018 2:23 PM | | | | | PDT | | + + + + + | Respiratory Rate | - | - | | + + + + + | Oxygen Saturation | 94% | 11/23/2018 2:23 PM | | | | | PDT | | + + + + + | Inhaled Oxygen | - | - | | | Concentration | | | | + + + + + | Weight | 103.2 kg (227 lb 8.2 | 11/23/2018 2:23 PM | | | | oz) | PDT | | + + + + + | Height | 170.2 cm (5' 7") | 11/23/2018 2:23 PM | | | | | PDT | | + + + + + | Body Mass Index | 35.63 | 11/23/2018 2:23 PM | | | | | PDT | | + + + + + documented in this encounter Progress Notes Melba Wallace MD - 11/23/2018 2:30 PM PDT Procedure Note Name:DAVID KERR Pre-op Diagnosis: Temporary hemodialysis catheter in place, no longer needed as patient has functional fistula Post-op Diagnosis: Same Title of Procedure: Removal of temporary hemodialysis catheter Indications: Patient receiving hemodialysis successfully via right upper extremity fistula Findings: No purulence or signs of infection, the cuff was firmly adhered to the surroundin g tissues, the tip was intact when the catheter was removed Procedure: The patient signed a consent for the procedure and was placed in a procedure leigh ir in a comfortable semireclined position. The chest was prepped and draped in usual steril e fashion. Local anesthetic was then fulgurated into the skin surrounding the device and th e cuff. A small galina was made in the skin on the medial side of the permacath with a 15 dimitrios de. Hemostat was used to bluntly release the catheter from the surrounding tissues up to th e cuff. Metzenbaum scissors was used to divide the scar to the cuff circumferentially. The device was then pulled out with the tip intact. She was applied to the IJ insertion point for 15 minutes. A single 3-0 Vicryl stitch was placed to close the tract 2 cm into the woun d. A single 4-0 nylon stitch was used to reapproximate the medial aspect of the wound where the incision was made today. The other portion of the wound was left open to be able to dr soto. A gauze dressing was taped in place. He tolerated the procedure well. EBL: 3 mL Follow-up care instructions explained to patient and written instructions sent with patient . Melba Wallace MD Portions of this chart may have been created with [employer] voice recognition software. Occasi onal wrong-word or sound-alike substitutions may have occurred due to the inherent al itations of voice recognition software. Please read the chart carefully and recognize, using context, where these substitutions have occurred. documented in thi s encounter Plan of Treatment +--------+ + + + + | Date | Type | Specialty | Care Team | Description | +--------+ + + + + | 07/16/ | Off-Site | Nephrology | Maty Tian | | | 2018 | Visit | | DO Rolan [address] [place] [address] | | | | | | [address] | | | | | | [place] | | | | | | [address] | | | | | | | | +--------+ + + + + | 09/25/ | Office | Cardiology | Sheldon Spence | | | 2019 | Visit | | MD [address] | | | | | | [address] | | | | | | [place] | | | | | | [address] | | | | | | | [...] [place] | | | | | | [address] | | | | | | | | +--------+ + + + + documented as of this encounter Visit Diagnoses + + | Diagnosis | + + | Vascular dialysis catheter in place ([facility]) - Primary Renal dialysis status | + + | ESRD (end stage renal disease) ([facility]) End stage renal disease | + + documented in this encounter Additional Health Concerns + + + + | Infection | Noted Time | Resolved Time | + + + + | Methicillin-resistant Staphylococcus aureus | 10/30/2018 9:33 AM | | | | PDT | | + + + + documented as of this encounter
--- OUTSIDE RECORDS SUMMARY | ~2019-07-14 | XMS | Encounter Summary ---
Demographics + + + | Address | [address] | | | [place] [address] | + + + | Home Phone | | + + + | Preferred Language | Unknown | + + + | Marital Status | | + + + | Druze Affiliation | 1041 | + + + | Race | Unknown | + + + | Ethnic Group | Unknown | + + + Author + + + | Author | [facility] | | | and [place] | + + + | Organization | [facility] | | | and [place] | + + + | Address | Unknown | + + + | Phone | Unavailable | + + + Support + + + + + | Name | Relationship | Address | Phone | + + + + + | Lula Kerr | ECON | [address] | | | | | [place] | | | | | [address] | | + + + + + Care Team Providers + +------+ + | Care Lead Informatica Developer Name | Role | Phone | + +------+ + PCP | Unavailable | + +------+ + Encounter Details +--------+ + + + + | Date | Type | Department | Care Team | Description | +--------+ + + + + | 10/05/ | Hospital | [facility] | | BACKACHE NOS | | 2001 | Encounter | CONVERSION [address] | | [address] | | | | | | [place] | | | | | | [address] | | | | | | [phone] | | | +--------+ + + + [...] 2018 | Visit | | DO Rolan [address] [place] [address] | | | | | | [place], [address] | | | | | | [place] | | | | | | [address] | | | | | | | | +--------+ + + + + | 09/25/ | Office | Cardiology | Sheldon Spence | | | 2019 | Visit | | MD [address] | | | | | | [place] | | | | | | [place] | | | | | | [address] | | | | | | | [...] [place] | | | | | | [address] | | | | | | | | +--------+ + + + + documented as of this encounter Visit Diagnoses + + | Diagnosis | + + | Backache, unspecified | + + documented in this encounter"
--- OUTSIDE RECORDS SUMMARY | ~2019-07-14 | XMS | Encounter Summary ---
Demographics + + + | Address | [address] | | | [place] [address] | + + + | Home Phone | | + + + | Preferred Language | Unknown | + + + | Marital Status | | + + + | Mandaeism Affiliation | 1041 | + + + | Race | Unknown | + + + | Ethnic Group | Unknown | + + + Author + + + | Author | [facility] | | | and [place] | + + + | Organization | [facility] | | | and [place] | + + + | Address | Unknown | + + + | Phone | Unavailable | + + + Support + + + + + | Name | Relationship | Address | Phone | + + + + + | Lula Kerr | ECON | [address] | | | | | [place] | | | | | [address] | | + + + + + Care Team Providers + +------+ + | Care Division Commander Name | Role | Phone | + +------+ + PCP | Unavailable | + +------+ + Encounter Details +--------+ + + + + | Date | Type | Department | Care Team | Description | +--------+ + + + + | 02/20/ | Hospital | [facility] | Raheel Gomez | Syncope and Collapse | | 2006 - | Encounter | [facility] | MD [address] | | | | | CARE [address] | Aaron Mckeon | | | 02/21/ | | [address] | [place] [address] | | | 2006 | | [place], [place] | [phone] | | | | | [address] | | | | | | [phone] | | | +--------+ + + + [...] | Visit | | DO Rolan [address] | | | | | | [address] | | | | | | [place] | | | | | | [address] | | | | | | | | +--------+ + + + + | 09/25/ | Office | Cardiology | Sheldon Spence | | | 2019 | Visit | | MD [address] | | | | | | [place] | | | | | | [place] | | | | | | [address] | | | | | | | [...] [place] | | | | | | [address] | | | | | | | | +--------+ + + + + documented as of this encounter Visit Diagnoses + + | Diagnosis | + + | Syncope and collapse | + + documented in this encounter"
--- OUTSIDE RECORDS SUMMARY | ~2019-07-14 | XMS | Encounter Summary ---
Demographics + + + | Address | [address] | | | [place] [address] | + + + | Home Phone | | + + + | Preferred Language | Unknown | + + + | Marital Status | | + + + | Gnosticist Affiliation | 1041 | + + + | Race | Unknown | + + + | Ethnic Group | Unknown | + + + Author + + + | Author | [facility] | | | and [place] | + + + | Organization | [facility] | | | and [place] | + + + | Address | Unknown | + + + | Phone | Unavailable | + + + Support + + + + + | Name | Relationship | Address | Phone | + + + + + | Lula Kerr | ECON | [address] | | | | | [place] | | | | | [address] | | + + + + + Care Team Providers + +------+ + | Care Coping Machine Assembler Name | Role | Phone | + +------+ + PCP | Unavailable | + +------+ + Encounter Details +--------+ + + + + | Date | Type | Department | Care Team | Description | +--------+ + + + + | 05/04/ | Hospital | [facility] | Sharan aGytan | | | 1999 | Encounter | MED CTR SLEEP | MD Ch[address] | | | | | CENTER [address] | [address] [place] | | | | | [place], [place] | [place] [address] | | | | | [address] | [phone] | | | | | [phone] | | | +--------+ + + + [...] | Visit | | DO Rolan [address] | | | | | | [address] | | | | | | [place] | | | | | | [address] | | | | | | | | +--------+ + + + + | 09/25/ | Office | Cardiology | Sheldon Spence | | | 2019 | Visit | | MD [address] | | | | | | [place] | | | | | | [place] | | | | | | [address] | | | | | | | [...] [place] | | | | | | [address] | | | | | | | | +--------+ + + + + documented as of this encounter Visit Diagnoses Not on filedocumented in this encounter"
--- OUTSIDE RECORDS SUMMARY | ~2019-07-14 | XMS | Encounter Summary ---
Demographics + + + | Address | [address] | | | [place] [address] | + + + | Home Phone | | + + + | Preferred Language | Unknown | + + + | Marital Status | | + + + | Methodist Affiliation | 1041 | + + + [...] + | Lula Kerr | ECON | [address] | | | | | [place] | | | | | [address] | | + + + + + Care Team Providers + +------+ + | Care Director Targeted Marketing Name | Role | Phone | + +------+ + | Gregory Drummond MD | PCP | | + +------+ + Encounter Details +--------+ + + + + | Date | Type | Department | Care Team | Description | +--------+ + + + + | 12/17/ | [facility] | Meredith Medina MD | | | 2016 | Encounter | MED CTR OR PRE OP | [address] | | | | | [address] [place] [place] | [place] | | | | | [place] [address] | [address] | | | | | [phone] | [phone] | | | | | | | [...] | Visit | | DO Rolan [address] | | | | | | [address] | | | | | | [place] | | | | | | [address] | | | | | | | | +--------+ + + + + | 09/25/ | Office | Cardiology | Sheldon Spence | | | 2019 | Visit | | MD [address] | | | | | | [place] | | | | | | [place] | | | | | | [address] | | | | | | | [...] [place] | | | | | | [address] | | | | | | | [...] 96 | 70 - 150 mg/dL | [facility] [...] [address] | [place] | [phone] | | [facility] | | [address] | | | - LABORATORY | | [...] | | | Fragments of hyperplastic polyp. IRG:[facility]:C2NR GROSS | | | DESCRIPTION: A. [...] received in | | | formalin, labeled "Ciriol, ascending colon polyps," consists of five mohr [...] | dimension. Submitted intact in cassette (D1). tn:[facility]: | | | PERFORMING LABORATORY: Tissue processing and slide preparation were | | | performed by [facility], [address] [place] [address] | | | [place] [address] (Subassemblies Wirer: Delano Le D.O..; CLIA#: | | | [id number]). Professional interpretation was performed at [facility] | | | [address] [address] | | | (CLIA#: [id number]). Diagnostician: Davidson Cam MD | | | [...]
--- OUTSIDE RECORDS SUMMARY | ~2019-07-14 | XMS | Encounter Summary ---
Demographics + + + | Address | [address] | | | [place] [address] | + + + | Home Phone | | + + + | Preferred Language | Unknown | + + + | Marital Status | | + + + | Gnosticist Affiliation | 1041 | + + + | Race | Unknown | + + + | Ethnic Group | Unknown | + + + Author + + + | Author | [facility] | | | and [place] | + + + | Organization | [facility] | | | and [place] | + + + | Address | Unknown | + + + | Phone | Unavailable | + + + Support + + + + + | Name | Relationship | Address | Phone | + + + + + | Lula Kerr | ECON | [address] | | | | | [place] | | | | | [address] | | + + + + + Care Team Providers + +------+ + | Care Powerhouse Tender Name | Role | Phone | + +------+ + | Gregory Drummond MD | PCP | | + +------+ + Reason for Visit + + + | Reason | Comments | + + + | Medication Refill | | + + + Encounter Details +--------+--------+ + + + | Date | Type | Department | Care Team | Description | +--------+--------+ + + + | 01/10/ | Refill | [facility] | Maty Tian | Medication Refill | | 2019 | | NEPHROLOGY [address] | M, DO [address] | | | | | [address] | [place] | | | | | [place], [place] | [place], [place] | | | | | [address] | [address] | | | | | [phone] | | | +--------+--------+ + + + Social History + + [...] 2018 | Visit | | DO Rolan [address] [place] [address] | | | | | | [address] | | | | | | [place] | | | | | | [address] | | | | | | | | +--------+ + + + + | 09/25/ | Office | Cardiology | Sheldon Spence | | | 2019 | Visit | | MD [address] | | | | | | [place] | | | | | | [place] | | | | | | [id number] | | | | | | | | +--------+ + + + + | 09/25/ | Procedure | Cardiology | | | | 2019 | visit | | | | +--------+ + + + + | 11/28/ | Office | Cardiology | Natalie LuoDO | | | 2019 | Visit | | [address] | | | | | | [place] | | | | | | [address] | | | | | | | [...]
--- OUTSIDE RECORDS SUMMARY | ~2019-07-14 | XMS | Encounter Summary ---
Demographics + + + | Address | [address] | | | [place] [address] | + + + | Home Phone [...] + | Lula Kerr | ECON | [address] | | | | | [place] | | | | | [address] | | + + + + + Care Team Providers + +------+ + | Care Communications Officer Name | Role | Phone | + +------+ + | Gregory Drummond MD | PCP | | + +------+ + Encounter Details +--------+ + + + + | Date | Type | Department | Care Team | Description | +--------+ + + + + | 12/17/ | Anesthesia | [facility] | Nii [facility] | | | 2016 | Event | [facility] | MD [place] [address] | | | | | [address] | [address] | | | | | [place] | [place] [address] | | | | | [address] | [phone] | | | | | [phone] | | | +--------+ + + + + Anesthesia Record + + + + + | Procedure Name | Responsible | Anesthesia Start | Anesthesia Stop Time | | | Anesthesiologist | Time | | + + + + + | EGD / COLONOSCOPY - | Nii Friend, | 12/18/15 0945 | 12/18/15 1020 | | bmi 45 - has | | | | | pacemaker | | | | | defibrilator (N/A ) | | | | + + + + + +----+---+ + + | Da | T | Event | Comment | | te | i | | | | | m | | | | | e | | | +----+---+ + + | 05 | 0 | | | | /2 | 9 | | | | 6/ | 4 | | | | 20 | 3 | | | | 16 | | | | +----+---+ + + | | 0 | AN | Per surgeon request | | | 9 | Antibiotic | | | | 4 | declined | | | | 3 | | | +----+---+ + + | | 0 | An Start | Reassessment prior to anesthesia induction/procedure. | | | 9 | | | | | 4 | | | | | 5 | | | +----+---+ + + | | 0 | An Start | | | | 9 | Data | | | | 4 | | | | | 5 | | | +----+---+ + + | | 0 | An | | | | 9 | Induction | | | | 4 | | | | | 9 | | | +----+---+ + + | | 1 | Quick Note | Patent airway but difficult to kepp spo2 above 90% | | | 0 | | | | | 0 | | | | | 9 | | | +----+---+ + + | | 1 | an stop | | | | 0 | data | | | | 1 | | | | | 4 | | | +----+---+ + + | | 1 | An Stop | Patient handed off to recovery nurse. | | | 2 | | | | | 0 | | | +----+---+ + + +------+ | Meds | +------+ + + + | Name | Total | + + + | LR (Infusion) | 1,400 mL | + + + + + | Name | + + | O2 Flow Rate (L/Min) | + + + + | No blood administrations on file. | + + +--------+ + + + | Type | Details | Placement | Removal | +--------+ + + + | Read | 09/16/14; 1030; Left:; eye; | 09/16/14 1030 by | 09/05/181925 by | | only - | 09/05/181925 | Goldie Manley, | Lyn Villanueva RN | | | | RN | | | Inc[facility] | | | | | on | | | | +--------+ + + + | Read | 10/14/14; 923; Right:; eye; | 10/14/14923 by | 09/05/181925 by | | only - | 09/05/181925 | Holly Worthy RN | Lyn Villanueva RN | | | | | | | Inc[facility] | | | | | on | | | | +--------+ + + + | Periph | 12/18/15; 0850; [id number] | 12/18/15 0850 by | 07/03/18 0800 by | | eral | catheter system; 20 gauge, 07/28 | Lula Yost RN | Felicita Sanchez RN | | IV | in length; (Capillary blood | | | | | glucose); distraction, | | | | | intradermal injection, topical | | | | | anesthetic spray applied, | | | | | tolerated well; removed in past; | | | | | 07/03/18; 0800 | | | +--------+ + + + [...] | Visit | | DO Rolan [address] | | | | | | [address] | | | | | | [place] | | | | | | [phone] | | | | | | | | +--------+ + + + + | 09/25/ | Office | Cardiology | Sheldon Spence | | | 2019 | Visit | | [address] | | | | | | [address] | | | | | | [place] | | | | | | [address] | | | | | | | [...] [place] | | | | | | [address] | | | | | | | | +--------+ + + + + documented as of this encounter Visit Diagnoses Not on filedocumented in this encounter Administered Medications + +---------+ +------+------+------+ | Medication Order | MAR | Action | Dose | Rate | Site | | | Action | Date | | | | + +---------+ +------+------+------+ | lactated ringers (LR) infusion | New Bag | 12/18/19 | | | | | Intravenous, CONTINUOUS PRN, | | 16 10:05 | | | | | Starting [facility] 12/18/15 at 0945, | | AM PDT | | | | | Anesthesia Intra-op | | | | | | + +---------+ +------+------+------+ +---------+ +---+---+---+ | New Bag | 12/18/19 | | | | | | 16 9:45 | | | | | | AM PDT | | | | +---------+ +---+---+---+ +---+---+ | | | +---+---+ documented in this encounter"
--- OUTSIDE RECORDS SUMMARY | ~2019-07-14 | XMS | Encounter Summary ---
Demographics + + + | Address | [address] | | | [place] [address] | + + + | Home Phone [...] + | Lula Kerr | ECON | [address] | | | | | [place] | | | | | [address] | | + + + + + Care Team Providers + +------+ + | Care Case Work Aide Name | Role | Phone | [...] | 01/10/ | Refill | [facility] | Maty Tian | Medication Refill | | 2019 | | NEPHROLOGY [address] | M, DO [address] | | | | | [address] | [address] | | | | | [place], [place] | [place], [place] | | | | | [address] | [address] | | | | | [phone] | | | +--------+--------+ + + + [...] 2018 | Visit | | DO Rolan [address] [place] [address] | | | | | | [address] | | | | | | [place] | | | | | | [address] | | | | | | | | +--------+ + + + + | 09/25/ | Office | Cardiology | Sheldon Spence | | | 2019 | Visit | | [address] | | | | | | [address] | | | | | | [place] | | | | | | [phone] | | | | | | | | +--------+ + + + + | 09/25/ | Procedure | Cardiology | | | | 2019 | visit | | | | +--------+ + + + + | 11/28/ | Office | Cardiology | Natalie LuoDO | | | 2019 | Visit | | [address] | | | | | | [place] | | | | | | [address] | | | | | | | [...]
--- OUTSIDE RECORDS SUMMARY | ~2019-07-14 | XMS | Encounter Summary ---
Demographics + + + | Address | [address] | | | [place] [address] | + + + | Home Phone [...] + | Lula Kerr | ECON | [address] | | | | | [place] | | | | | [address] | | + + + + + Care Team Providers + +------+ + | Care Molding Associate Name | Role | Phone | + +------+ + PCP | Unavailable | + +------+ + Encounter Details +--------+ + + + + | Date | Type | Department | Care Team | Description | +--------+ + + + + | 02/25/ | Hospital | [facility] | Ana Abebe | | | 2006 | Encounter | MED CTR EMERGENCY | Rolan Forrester MD [address] | | | | | CENTER [address] | [facility] | | | | | [place] | [place] [address] | | | | | [address] | [phone] | | | | | [phone] | | | +--------+ + + + [...] | Visit | | DO Rolan [address] | | | | | | [address] | | | | | | [place] | | | | | | [address] | | | | | | | | +--------+ + + + + | 09/25/ | Office | Cardiology | Sheldon Spence | | | 2019 | Visit | | [address] | | | | | | [address] | | | | | | [place] | | | | | | [address] | | | | | | | [...] [place] | | | | | | [address] | | | | | | | | +--------+ + + + + documented as of this encounter Visit Diagnoses Not on filedocumented in this encounter"
--- OUTSIDE RECORDS SUMMARY | ~2019-07-14 | XMS | Encounter Summary ---
Demographics + + + | Address | [address] | | | [place] [address] | + + + | Home Phone | | + + + | Preferred Language | Unknown | + + + | Marital Status | | + + + | Sabianist Affiliation | 1041 | + + + | Race | Unknown | + + + | Ethnic Group | Unknown | + + + Author + + + | Author | [facility] | | | and [place] | + + + | Organization | [facility] | | | and [place] | + + + | Address | Unknown | + + + | Phone | Unavailable | + + + Support + + + + + | Name | Relationship | Address | Phone | + + + + + | Lula Kerr | ECON | [address] | | | | | [place] | | | | | [address] | | + + + + + Care Team Providers + +------+ + | Care Potato Bucker Name | Role | Phone | + [...] | | | | | [address] | [place] | | | | | [place] | [address] | | | | | [address] | | | | | | [phone] | | | +--------+ + + + [...] Other (see comment) (blood | [facility] [place] | Harmony Muniz RN | | | [...] | Visit | | DO Rolan [address] | | | | | | [address] | | | | | | [place] | | | | | | [address] | | | | | | | | +--------+ + + + + | 09/25/ | Office | Cardiology | Sheldon Spence | | | 2019 | Visit | | [address] | | | | | | [address] | | | | | | [place] | | | | | | [address] | | | | | | | [...] [place] | | | | | | [address] | | | | | | | [...]
--- OUTSIDE RECORDS SUMMARY | ~2019-07-14 | XMS | Encounter Summary ---
Demographics + + + | Address | [address] | | | [place] [address] | + + + | Home Phone | | + + + | Preferred Language | Unknown | + + + | Marital Status | | + + + | Lutheran Affiliation | 1041 | + + + | Race | Unknown | + + + | Ethnic Group | Unknown | + + + Author + + + | Author | [facility] | | | and [place] | + + + | Organization | [facility] | | | and [place] | + + + | Address | Unknown | + + + | Phone | Unavailable | + + + Support + + + + + | Name | Relationship | Address | Phone | + + + + + | Lula Kerr | ECON | [address] | | | | | [place] | | | | | [address] | | + + + + + Care Team Providers + +------+ + | Care Department Store General Manager Name | Role | Phone | + +------+ + | Gregory Drummond MD | PCP | | + +------+ + Encounter Details +--------+ + + + + | Date | Type | Department | Care Team | Description | +--------+ + + + + | 07/03/ | Imaging | [facility] | Provider, | | | 2019 | Exam | MED CTR EXTERNAL | [address] | | | | | IMAGING | [address] | | | | | [phone] | [place] [address] | | +--------+ + + + + [...] | Visit | | DO Rolan [address] | | | | | | [address] | | | | | | [place] | | | | | | [address] | | | | | | | | +--------+ + + + + | 09/25/ | Office | Cardiology | Sheldon Spence | | | 2019 | Visit | | [address] | | | | | | [address] | | | | | | [place] | | | | | | [address] | | | | | | | [...] [place] | | | | | | [address] | | | | | | | [...] + documented in this encounter Results CT Thoracic Spine w wo Contrast (07/03/2019 [...]
--- OUTSIDE RECORDS SUMMARY | ~2019-07-14 | XMS | Clinical Summary ---
Demographics + + + | Address | [address] | | | [place] [address] | + + + | Home Phone | | + + + | Preferred Language | Unknown | + + + | Marital Status | | + + + | Pentecostalism Affiliation | 1041 | + + + | Race | Unknown | + + + | Ethnic Group | Unknown | + + + Author + + + | Author | [facility] [employer] (Historical as of | | | 03-10-19) | + + + | Organization | [facility] [employer] (Historical as of | | | 03-10-19) | + + + | Address | Unknown | + + + | Phone | Unavailable | + + + Support + + + + + | Name | Relationship | Address | Phone | + + + + + | Lula Lu | ECON | [address] | | | | | [place] | | | | | [address] | | + + + + + Care Team Providers + +------+ + | Care Business Systems Administrator Name | Role | Phone | + +------+ + | Gregory Drummond MD | PP | | + +------+ + Allergies + + + + + + | Active Allergy | Reactions | Severity | Noted | Comments | | | | | Date | | + + + + + + | Morphine | Other (See Comments) | Medium | 10/20/19 | Became really mean | | | | | 19 | | + + + + + + Current Medications + + +--------+---------+------+------+-------+ | Prescription | Sig. | Disp. | Refills | Star | End | Statu | | | | | | t | Date | s | | | | | | Date | | | + + +--------+---------+------+------+-------+ | allopurinol | Take 150 mg by mouth | | | | | Activ | | (ZYLOPRIM) 300 MG | daily. | | | | | e | | tablet | | | | | | | + + +--------+---------+------+------+-------+ | aspirin 81 MG | Take 81 mg by mouth | | | | | Activ | | tablet | daily. 3 days a week | | | | | e | + + +--------+---------+------+------+-------+ | atorvastatin | Take 40 mg by mouth | | | | | Activ | | (LIPITOR) 40 MG | nightly. | | | | | e | | tablet | | | | | | | + + +--------+---------+------+------+-------+ | furosemide (LASIX) | Take 80 mg by mouth | | | | | Activ | | 80 MG tablet | 2 (two) times daily. | | | | | e | + + +--------+---------+------+------+-------+ | glimepiride | Take 2 mg by mouth | | | | | Activ | | (AMARYL) 2 MG tablet | every morning before | | | | | e | | | breakfast. | | | | | | + + +--------+---------+------+------+-------+ | UNABLE TO FIND | Med Name: nephrovite | | | | | Activ | | | | | | | | e | + + +--------+---------+------+------+-------+ | omeprazole | Take 40 mg by mouth | | | | | Activ | | (PRILOSEC) 40 MG | every morning before | | | | | e | | capsule | breakfast. | | | | | | + + +--------+---------+------+------+-------+ | triamcinolone | Apply topically | | | | | Activ | | (KENALOG) 0.1 % | daily. | | | | | e | | cream | | | | | | | + + +--------+---------+------+------+-------+ | celecoxib | Take 200 mg by mouth | | | | | Activ | | (CELEBREX) 200 MG | daily. | | | | | e | | capsule | | | | | | | + + +--------+---------+------+------+-------+ | fexofenadine | Take 180 mg by mouth | | | | | Activ | | (HECTOR) 180 MG | daily. | | | | | e | | tablet | | | | | | | + + +--------+---------+------+------+-------+ | Triamcinolone | by Nasal route as | | | | | Activ | | Acetonide (NASACORT | needed. | | | | | e | | AQ NA) | | | | | | | + + +--------+---------+------+------+-------+ | metoprolol | Take 1 tablet by | 30 | 5 | 06/0 | 06/0 | Activ | | (TOPROL-XL) 25 MG 24 | mouth daily. | tablet | | 5/20 | 4/20 | e | | hr | | | | 19 | 20 | | | tabletIndications: | | | | | | | | Ischemic | | | | | | | | cardiomyopathy | | | | | | | + + +--------+---------+------+------+-------+ Active Problems + + + | Problem | Noted Date | + + + | VT (ventricular tachycardia) ([facility]) | 11/27/2018 | + + + | Coronary artery disease involving yocha dehe coronary artery of | 10/19/2018 | | yocha dehe heart without angina pectoris | | + + + | Dialysis patient ([facility]) | 10/19/2018 | + + + + + | Overview: Overview: | | Dialysis M-W-F | + + + + + | Gout | 10/19/2018 | + + + | Hyperlipidemia | 10/19/2018 | + + + | Obstructive sleep apnea on CPAP | 10/19/2018 | + + + + + | Overview: Overview: | | BiPAP, Patient states he does not use device (D/C 2014) | + + + + + | Pulmonary hypertension, moderate to severe (HCC) | 10/19/2018 | + + + + + | Overview: Overview: Severe pulmonary hypertension with a peak | | systole pressure of 80-85 mmHg. EF% 35-40%. Patient has | | stopped CPAP which may contribute to severity. | + + + + + | Venous insufficiency | 10/19/2018 | + + + | Anemia due to chronic kidney disease | 07/14/2018 | + + + | Secondary hyperparathyroidism of renal origin (HCC) | 07/14/2018 | + + + | ESRD (end stage renal disease) on dialysis (HCC) | 06/26/2018 | + + + | Left bundle branch block (LBBB) | 11/18/2017 | + + + | Cardiomyopathy (HCC) | 02/21/2017 | + + + + [...] | hypertension, will try to increase lisinopril. | |Overview: | |Last Assessment & Plan: | |A: Ischemic cardiomyopathy. NYHA Class III. | | | |P: | |1. Echo before his next visit with me. | |2. Continue current meds. If persistent hypertension, will try to increase lisinopril. | + + + + + | Gastrointestinal hemorrhage associated with gastric ulcer | 08/20/2016 | + + + | Persistent atrial fibrillation (HCC) | 08/20/2016 | + + + + + | Overview: Last Assessment & Plan: A: Persistent afib. | | [id number] Risk Score: 5 - 7.2% Estimated Stroke Risk Per | | YearHAS-BLED Score for Major Bleeding Risk: 2 - Risk: Study One - | | 4.1%; Study Two - 1.88 bleeds per 100 patient yearsP: Unable to | | tolerate anticoagulation. ASA only. | | | |P: Unable to tolerate anticoagulation. ASA only. | + + + + + | Class 3 obesity due to excess calories with serious comorbidity | 08/13/2015 | | and body mass index (BMI) of 40.0 to 44.9 in adult | | + + + + + | Overview: Last Assessment & Plan: | | A: BMI is 41. | | | | P: I encouraged pt to exercise and lose weight. | + + + + + | Diabetes mellitus type II, non insulin dependent (HCC) | 09/16/2014 | + + + | HTN (hypertension) | 05/31/2014 | + + + + + | Overview: Last Assessment & Plan: A: BP a bit high. P: Given | | CKD, hold off increasing lisinopril unless persistently | | hypertensive. | |P: Given CKD, hold off increasing lisinopril unless persistently hypertensive. | + + + + + | DM (diabetes mellitus), type 2 (HCC) | 03/17/2011 | + + + | AICD (automatic cardioverter/defibrillator) present | 04/03/2010 | + + + + + | Overview: Overview: | | A: Biventricular ICD is [...] to continue to exercise. | + + Resolved Problems + + + + | Problem | Noted | Resolved | | | Date | Date | + + + + | Hypertension | 05/31/20 | | | | 14 | 9 | + + + + Immunizations + + + + | Name | Dates Previously Given | Next Due | + + + + | INFLUENZA PF, | 04/11/2017 | | | QUADRIVALENT | | | | (PED/ADOL/ADULT) | | | + + + + | Pneumococcal | 07/08/2014 | | | Conjugate 13-valent | | | + + + + | Td | 05/10/1996 | | + + + + | Tdap | 05/22/2006 | | + + + + Family History + +------+ + + | Relation | Name | Status | Comments | + +------+ + + | Father | | | | + +------+ + + | Mother | | | | + +------+ + + Social History + +-------+ +--------+ + | Tobacco Use | Types | Packs/Day | Years | Date | | | | | Used | | + +-------+ +--------+ + | Former Smoker | | 1 | 55 | Quit: 11/23/2009 | + +-------+ +--------+ + + +---+---+---+ | Smokeless Tobacco: | | | | | Former User | | | | + +---+---+---+ + + +---------+ + | Alcohol Use | Drinks/We | oz/Week | Comments | | | ek | | | + + +---------+ + | Yes | | | 1-2 beers in the summer, socially. | + + +---------+ + + + + | Sex Assigned at | Date Recorded | | | | + + + | Not on file | | + + + Last Filed Vital Signs + + + + | Vital Sign | Reading | Time Taken | + + + + | Blood Pressure | 100/50 | 12/27/2018 8:53 AM PDT | + + + + | Pulse | 61 | 12/27/2018 8:53 AM PDT | + + + + | Temperature | - | - | + + + + | Respiratory Rate | 20 | 12/12/2018 3:02 PM PDT | + + + + | Oxygen Saturation | 90% | 12/27/2018 8:53 AM PDT | + + + + | Inhaled Oxygen | - | - | | Concentration | | | + + + + | Weight | 105.6 kg (232 lb | 12/27/2018 8:53 AM PDT | | | 12.8 oz) | | + + + + | Height | 170.2 cm (5' 7") | 12/27/2018 8:53 AM PDT | + + + + | Body Mass Index | 36.46 | 12/27/2018 8:53 AM PDT | + + + + Plan of Treatment + + + + + | Health Maintenance | Due Date | Last Done | Comments | + + + + + | Diabetic Eye Exam | | | | | | 7 | | | + + + + + | Diabetic Foot Exam | | | | | | 7 | | | + + + + + | Hemoglobin A1c | | | | | | 7 | | | + + + + + | Colon Cancer | | | | | Screening | 7 | | | | (Colonoscopy) | | | | + + + + + | Vaccine: Zoster (1 | | | | | of 2) | 7 | | | + + + + + | Lung Cancer | | | | | Screening | 2 | | | + + + + + | Vaccine: | | 07/08/2014 | | | Pneumococcal 65+ | 5 | | | | High/Highest Risk (2 | | | | | of 2 - PPSV23) | | | | + + + + + | Vaccine: | | 05/22/2006, 05/10/1996 | | | Dtap/Tdap/Td (2 - | 6 | | | | Td) | | | | + + + + + | Vaccine: Influenza | | 04/11/2017 | | | (#1) | 9 | | | + + + + + Results Not on filefrom Last 3 Months Insurance + +--------+ +------+-------+ + | Payer | Benefi | Subscriber | Type | Phone | Address | | | t Plan | ID | | | | | | / | | | | | | | Group | | | | | + +--------+ +------+-------+ + | MEDICARE | MEDICA | [id number] | | | [address] | | | [place] | | | | [place] [phone] | | | IP-OP | | | | | + +--------+ +------+-------+ + | [employer] | UNITED | [id number] | | | | | | | | | | | | | HEALTH | | | | | | | CARE - | | | | | | | AARP | | | | | + +--------+ +------+-------+ + | /[employer] | YELLOW | [id number] | | | | | PLANS | [place] | | | | | + +--------+ +------+-------+ + + +--------+ +--------+ + + | Guarantor Name | Accoun | Relation to | Date | Phone | Billing Address | | | t Type | Patient | of | | | | | | | | | | + +--------+ +--------+ + + | DAVID LU | Person | Self [birth year] Home: | [address] | | | al/Fam | | [phone] | [phone] [place] | | | [place] | | [phone] | [phone] | + +--------+ +--------+ + +
--- OUTSIDE RECORDS SUMMARY | ~2019-07-14 | XMS | Encounter Summary ---
Demographics + + + | Address | [address] | | | [place] [address] | + + + | Home Phone | | + + + | Preferred Language | Unknown | + + + | Marital Status | | + + + | Quaker Affiliation | [id number] | + + + | Race | Unknown | + + + | Ethnic Group | Unknown | + + + Author + + + | Author | [facility] | | | and [place] | + + + | Organization | [facility] | | | and [place] | + + + | Address | Unknown | + + + | Phone | Unavailable | + + + Support + + + + + | Name | Relationship | Address | Phone | + + + + + | Lula Kerr | ECON | [address] | | | | | [place] | | | | | [address] | | + + + + + Care Team Providers + +------+ + | Care Double End Sewer Name | Role | Phone | + [...] | +--------+ + + + + | 09/08/ | Documentati | [facility] [place] | Silvina Alcantar W, | Dialysis | | 2019 | on | NEPHROLOGY [address] | MD [address] | (Asymptomatic) | | | | [address] | [address] | | | | | [place], [place] | [place] [address] | | | | | [address] | [phone] | | | | | [phone] | | | +--------+ + + + [...] documented as of this encounter Progress Notes Silvina Alcantar MD - 09/08/2018 3:44 PM PSTFormatting of this note might be different f rom the original. H&P / Care Conference Date of visit: 09/08/2018 HPI: David Kerr is a 72 y.o. male with ischemic cardiomyopathy, CAD, type 2 D M, obesity hypoventilation, admitted to [facility] on 06/26/18, with pneumonia, septic shock, and acute on chronic kidney injury due to acute tubular necrosis. Pt initiated inpatient hemodi alysis on 06/28/18. A right IJ tunneled HD catheter was placed on 07/03/18. Pt was discharg ed from [facility] on 07/08/18 to [facility]. Pt started outpatient dialysis in [place] on 07/10/18. Pt remains on dialysis. Pt had a placement of right upper arm AV fistula by Dr. Hampton on . Pt's weight has steadily come down. Pt's current EDW is 107 kg. Pt reports his legs feel less heavy, but pt reports some edema in his upper thighs. Pt is walking with a walker. Pt states he may be able to return home as soon as next week. Pt denies chest pain, shortness of breath. Pt reports his urine output has diminished sig nificantly. Initial care conference was completed on 08/03/18. [facility] Patient Active Problem List Diagnosis Date Noted ESRD (end stage renal disease) on dialysis ([facility]) 06/26/2018 Priority: High Chews tobacco 09/04/2018 Arteriosclerotic cardiovascular disease Dialysis patient ([facility]) Note Last Updated: 09/04/2018 Dialysis M-W-F Pulmonary hypertension, Severe Note Last Updated: 09/04/2018 Severe pulmonary hypertension with a peak systole pressure of 80-85 mmHg. EF% 35-40%. P atient has stopped CPAP which may contribute to severity. Obstructive sleep apnea on CPAP Note Last Updated: 09/04/2018 BiPAP, Patient states he does not use device (D/C 2014) Gout Hyperlipidemia Venous insufficiency Anemia due to chronic kidney disease 07/14/2018 Secondary hyperparathyroidism of renal origin ([facility]) 07/14/2018 Left bundle branch block (LBBB) 11/18/2017 Cardiomyopathy ([facility]) 02/21/2017 Note Last Updated: 08/10/2018 Last Assessment & Plan: A: Ischemic cardiomyopathy. NYHA Class III. P: 1. Echo before his next visit with me. 2. Continue current meds. If persistent hypertension, will try to increase lisinopril. Persistent atrial fibrillation ([facility]) 08/20/2016 Note Last Updated: 08/10/2018 Last Assessment & Plan: A: Persistent afib. [id number] Risk Score: 5 - 7.2% Estimated Stroke Risk Per Year HAS-BLED Score for Major Bleeding Risk: 2 - Risk: Study One - 4.1%; Study Two - 1.88 bleeds per 100 patient years P: Unable to tolerate anticoagulation. ASA only. Obesity 09/16/2014 Diabetes mellitus type II, ORAL Control 09/16/2014 Hypertension 05/31/2014 AICD (automatic cardioverter/defibrillator) present 04/03/2010 Note Last Updated: 09/04/2018 A: Biventricular ICD is functioning appropriately. P: Echo in one year with ICD follow up. Hx of CABG 12/19/2009 Note Last Updated: 08/10/2018 Last Assessment & Plan: Assessment: No anginal symptoms. Plan: I encouraged the patient to continue to exercise. PSH Past Surgical History: Procedure Laterality Date AV FISTULA INSERTION Right 09/05/2018 Procedure: RIGHT arm AVF; Surgeon: Amilcar Hampton MD, FACS; Location: [facility] MAIN OR CATARACT REMOVAL WITH IMPLANT Left 09/16/2014 Procedure: [...] defibrilator ; Surgeon: Meredith forbes MD; Location: [facility] MEDICAL PROCEDURE UNIT pacemaker medtronic SHUNT PLACEMENT/INSERTION Right 07/03/2018 Procedure: INSERTION SHUNT HEMODIALYSIS W/ PERMACATH; Surgeon: Melba Wallace MD; L ocation: [facility] MAIN OR Social History Social History Marital status: Spouse [...] summer Drug use: No Sexual activity: Not on file Other Topics Concern Not on file Social History Narrative No narrative on file Allergies Allergen Reactions Morphine Other (See Comments) Changes personality to "mean" "get mean" Current Outpatient Prescriptions Medication Sig Acetaminophen 500 MG CAPS Take 1,000 mg by mouth every 6 hours as needed. albuterol-ipratropium 2.5-0.5 mg/3 mL SOLN Take 3 mLs by nebulization every 4 hours as needed for Wheezing or Shortness of Breath. allopurinol (ZYLOPRIM) 300 mg tablet Take 150 mg by mouth Daily. aluminum & magnesium hydroxide-simethicone (MAALOX PLUS REGULAR STRENGTH) 200-200-20 mg /5 mL suspension Take 30 mLs by mouth every 6 hours as needed for Indigestion. aspirin 81 MG tablet Take 81 mg by mouth. Three times a week atorvaSTATin (LIPITOR) 40 mg tablet Take 40 mg by mouth nightly. bisacodyl (DULCOLAX) [address] 10 mg rectally Daily as needed for Constip ation. calcium carbonate (TUMS) 500 mg chewable tablet Take 2 tablets by mouth every 2 hours a s needed for Indigestion. fexofenadine (HECTOR) 180 mg tablet Take 180 mg by mouth Daily as needed for Allergies . furosemide (LASIX) 80 mg tablet Take 2 tablets by mouth 2 times daily. glimepiride (AMARYL) 2 MG tablet Take 1 tablet by mouth every morning (before breakfast ). HYDROcodone-acetaminophen (NORCO) 5-325 mg per tablet Take 1-2 tablets by mouth every 4 hours as needed for Pain. omeprazole (PRILOSEC) 40 MG capsule Take 20 mg by mouth every morning (before breakfast ). polyethylene glycol (MIRALAX) packet Take 1 diluted packet by mouth Daily as needed for Constipation. triamcinolone (KENALOG) 0.1% cream Apply 1 Application topically Twice daily as needed for Rash. No current facility-administered medications for this visit. EXAM T 97.0, HR 71, BP 118/69, pre-wt 110.4 kg, gain 3.5 kg (edw 107 kg) Constitutional: Appears well-developed and well-nourished. No distress. Cardiovascular: Irregularly irregular. 1+ pitting lower peripheral edema. Lungs: Respiratory effort normal. Diminished breath sounds throughout. Abdominal: Soft. Bowel sounds are normal. No distension or tenderness. Musculoskeletal: No muscle tenderness. Neurological: Alert. Dialysis Access: R IJ catheter accessed with BFR 400 mL/min. Right upper arm AVF with palp able thrill. DIALYSIS LABS 09/06/18 WBC 5.8, Hb 11.6, PLT 185, TSAT 20%, (ferritin 464 on 08/02/18) Sodium 135, potassium 3.8, Cl 98, bicarb 24, BUN 52, Cr 4.06 Albumin 3.3, calcium 8.7, phos 5.5, (PTH 245 on 08/02/18) ASSESSMENT AND PLAN 1. ESRD (end stage renal disease) on dialysis (HCC) On hemodialysis. Pt is tolerating HD t reatments well. Access: R IJ catheter in use. Pt has a new right upper arm AVF created this week. Pt will f/u with Dr. Hampton next week. Dialysis adequacy remains below goal (spKt/V 1.4). Will review with glue sprayer. 2. Essential hypertension Clinic BP is at baseline. Will continue to challenge EDW. 3. Anemia due to chronic kidney disease, on chronic dialysis (HCC) Hb >11. Not requiring KINJAL. 4. Secondary hyperparathyroidism of renal origin ([facility]) Serum calcium and phos levels are a t goal. Last PTH level was at goal. 5. Ischemic cardiomyopathy Stable. Cc: Rg Drummond MD documented in this encounter Plan of Treatment +--------+ + + + + | Date | Type | Specialty | Care Team | Description | +--------+ + + + + | 07/16/ | Off-Site | Nephrology | Maty Tian | | | 2018 | Visit | | M, DO [address] | | | | | | [address] | | | | | | [place] | | | | | | [address] | | | | | | | | +--------+ + + + + | 09/25/ | Office | Cardiology | Sheldon Spence | | | 2019 | Visit | | [address] | | | | | | [address] | | | | | | [place] | | | | | | [address] | | | | | | | [...] [place] | | | | | | [phone] | | | | | | | | +--------+ + + + + documented as of this encounter Visit Diagnoses + + | Diagnosis | + + | ESRD (end stage renal disease) on dialysis (HCC) - Primary End stage renal disease | + + | Essential hypertension Unspecified essential hypertension | + + | Anemia due to chronic kidney disease, on chronic dialysis (HCC) | + + | Secondary hyperparathyroidism of renal origin (HCC) Secondary hyperparathyroidism (of | | renal origin) | + + | Ischemic cardiomyopathy Other specified forms of chronic ischemic heart disease | + + documented in this encounter
--- OUTSIDE RECORDS SUMMARY | ~2019-07-14 | XMS | Encounter Summary ---
Demographics + + + | Address | [address] | | | [place] [address] | + + + | Home Phone [...] + | Lula Kerr | ECON | [address] | | | | | [place] | | | | | [address] | | + + + + + Care Team Providers + +------+ + | Care Director Of Casework Name | Role | Phone | + [...] NEPHROLOGY [address] | MD [address] | (Asymptomatic) | | | | [address] | [address] | | | | | [place], [place] | [place] [id number] | | | | | [address] | [phone] | | | | | [phone] | | | +--------+ + + + [...] 2 D M, obesity hypoventilation, admitted to [facility] on 06/26/18, with pneumonia, septic shock, and acute on chronic kidney injury due to acute tubular necrosis. Pt initiated inpatient hemodi alysis on 06/28/18. A right IJ tunneled HD catheter was placed on 07/03/18. Pt was discharg ed from [facility] on 07/08/18 to [facility]. Pt started outpatient dialysis in [place] on 07/10/18. Pt remains on dialysis. Pt [...] Initial care conference was completed on 08/03/18. [facility] Patient Active Problem List Diagnosis Date Noted ESRD (end stage renal disease) on dialysis ([facility]) 06/26/2018 Priority: High Chews tobacco 09/04/2018 Arteriosclerotic cardiovascular disease Dialysis patient ([facility]) Note Last Updated: 09/04/2018 Dialysis M-W-F Pulmonary [...] disease 07/14/2018 Secondary hyperparathyroidism of renal origin ([facility]) 07/14/2018 Left bundle branch block (LBBB) 11/18/2017 Cardiomyopathy ([facility]) 02/21/2017 Note Last Updated: 08/10/2018 Last Assessment & Plan: A: Ischemic cardiomyopathy. NYHA Class III. P: 1. Echo before his next visit with me. 2. Continue current meds. If persistent hypertension, will try to increase lisinopril. Persistent atrial fibrillation ([facility]) 08/20/2016 Note Last Updated: 08/10/2018 Last Assessment & Plan: A: Persistent afib. [id number] Risk Score: 5 - 7.2% Estimated Stroke [...] AVF; Surgeon: Amilcar Hampton MD, FACS; Location: [facility] MAIN OR CATARACT REMOVAL WITH IMPLANT [...] defibrilator ; Surgeon: Meredith forbes MD; Location: [facility] MEDICAL PROCEDURE UNIT pacemaker medtronic SHUNT PLACEMENT/INSERTION Right 07/03/2018 Procedure: INSERTION SHUNT HEMODIALYSIS W/ PERMACATH; Surgeon: Melba Wallace MD; L ocation: [facility] MAIN OR Social History Social History [...] below goal (spKt/V 1.4). Will review with wrapper cashier. 2. Essential hypertension Clinic BP is at baseline. Will continue to challenge EDW. 3. Anemia due to chronic kidney disease, on chronic dialysis (HCC) Hb >11. Not requiring KINJAL. 4. Secondary hyperparathyroidism of renal origin ([facility]) Serum calcium and phos levels are a [...] | Visit | | M, DO [address] | | | | | | [address] | | | | | | [place] | | | | | | [address] | | | | | | | | +--------+ + + + + | 09/25/ | Office | Cardiology | Sheldon Spence | | | 2019 | Visit | | [address] | | | | | | [address] | | | | | | [place] | | | | | | [address] | | | | | | | [...] [place] | | | | | | [address] | | | | | | | [...]
--- OUTSIDE RECORDS SUMMARY | ~2019-07-14 | XMS | Encounter Summary ---
Demographics + + + | Address | [address] | | | [place] [address] | + + + | Home Phone | | + + + | Preferred Language | Unknown | + + + | Marital Status | | + + + | Jew Affiliation | 1041 | + + + | Race | Unknown | + + + | Ethnic Group | Unknown | + + + Author + + + | Author | [facility] | | | and [place] | + + + | Organization | [facility] | | | and [place] | + + + | Address | Unknown | + + + | Phone | Unavailable | + + + Support + + + + + | Name | Relationship | Address | Phone | + + + + + | Lula Kerr | ECON | [address] | | | | | [place] | | | | | [address] | | + + + + + Care Team Providers + +------+ + | Care Bank Representative Name | Role | Phone | + +------+ + | Gregory Drummond MD | PCP | | + +------+ + Reason for Visit + + + | Reason | Comments | + + + | New Patient | Est Pt Consultation AV fistula creation | + + + Evaluate & Treat (Routine) +--------+ + + + + + | Status | Reason | Specialty | Diagnoses / | Referred By | Referred To | | | | | Procedures | Contact | Contact | +--------+ + + + + + | Closed | Specialty | Surgery / | Diagnoses | Katharine, | , | | | Services | General | ESRD (end | Silvina Moses, | Amilcar Nelson, | | | Required | Surgery | stage renal | [address] | [address] | | | | | disease) | [address] | [address] | | | | | ([facility]) | [address] | [place], | | | | | Procedures | [place], [place] | [place] [address] | | | | | 08/09??> | [address] | Phone: | | | | | PEND | Phone: | [phone] | | | | | MARY | [phone] | Fax: | | | | | REVIEW | Fax: | [phone] | | | | | | [phone] | | +--------+ + + + + + Encounter Details +--------+---------+ + + + | Date | Type | Department | Care Team | Description | +--------+---------+ + + + | 08/24/ | Office | [facility] | Silvina Alcantar, | ESRD (end stage | | 2019 | Visit | SURGERY [address] | MD Elton Esposito | renal disease) (HCC) | | | | [place], [place] | [address] | (Primary Dx) | | | | [address] | [place] [address] | | | | | [phone] | [phone] | | | | | | | | | | | | Amilcar Hampton I, | | | | | | , FACS [address] | | | | | | [place], [place] | | | | | | [id number] | | | | | | | [...] + + + | Blood Pressure | 128/72 | 08/24/2018 8:59 AM | | | | | PST | | + + + + + | Pulse | 71 | 08/24/2018 8:59 AM | | | | | PST | | + + + + + | Temperature | 36.9 C (98.4 F) | 08/24/2018 8:59 AM | | | | | PST | | + + + + + | Respiratory Rate | 16 | 08/24/2018 8:59 AM | | | | | PST | | + + + + + | Oxygen Saturation | 92% | 08/24/2018 8:59 AM | | | | | PST | | + + + + + | Inhaled Oxygen | - | - | | | Concentration | | | | + + + + + | Weight | - | - | | + + + + + | Height | 170.2 cm (5' 7") | 08/24/2018 8:59 AM | | | | | PST | | + + + + + | Body Mass Index | - | - | | + + + + + documented in this encounter Patient Instructions Patient Instructions Suzanne Reese RN - 08/24/2018 8:40 AM PSTTAKE NO Coumadin/Warfarin or Plavix AFTER 08/31/18 Insulin medications: NO INSULIN DAY OF SURGERY, NO DIABETIC MEDICATIONS (METFORMIN, GLIMEPI RIDE, GLIPIZIDE, JANUVIA) Hold "...pril" and "...sartan" medications day of surgery. NO LISINOPRIL OR LASIX DAY OF SUN RGERY DO NOT EAT OR DRINK ANYTHING AFTER MIDNIGHT before your surgery. This means no coffee, latoya er, juice or toast on the morning of your surgery. The only exception is essential medicine s with a small sip of water (or just enough to get the pills down safely). Wear loose fitting, comfortable clothing. We advise you to leave jewelry and other valuable s at home. On 08/31/18 check in at Same Day Surgery (corner of [address]) at 1000 for your pre-anes thesia work up. On 09/05/18 check in at Same Day Surgery ([address]) at 10:00am. Your surgery is called RIGHT arm AV fistula creation or AV graft. It will start about 12:00pm and will finish about 3:00pm. You will be ready to go home later that day. Anesthesia type recommended: General General IV Sedation with local anesthesia (MAC) IV Sedation Other MAKE ARRANGEMENTS FOR A RESPONSIBLE ADULT TO DRIVE YOU HOME. Should you need a signed document excusing you from work or school, we advise you request t his during your visit to ensure timely delivery. If you have any questions, please call at . Your nurse's name is Suzanne. Your surgeon's name is Dr. Hampton. I look forward to your having a safe, successful and comfortable surgery. Sign up for Consert if you want easy access to your medical information online. You can: Review your medications, immunizations, allergies and medical history. View details of your past and upcoming appointments. Sign up for Consert if you want easy access to your medical information online. Only you, your doctor and your health care team are permitted to view the information sent through iMICROQ. Through Consert you can: ? Review your medications, immunizations, allergies and medical history. ? View details of your past and upcoming appointments. ? Receive test results online no waiting for a phone call or letter ? Review health education topics and discharge instructions provided by your physician. ? Send secure emails to your healthcare team. ? Request renewals of your medications online ? Link your family s accounts to yours for convenient access to appointments, immunizatio n records, growth charts and more. Below are the different ways you can sign up for Consert: ? The first way is to get online at: [email or web address] and sign up directly throug h the website prior to your appointment with us. You can call [phone] ([phone]) if you have any questions or need assistance. ? The second way is through the Consert rosmery which can be accessed with any smart phone. Ju st go to your rosmery store and look up [employer]. ? The third way is to do it while you wait in the room for the doctor at your appointment. The nurse is available if you have any questions or need assistance. You will need the following information to sign up: Email address: User name: Password: Password must be at least 8 characters long, less than 20 characters, and it must have at l east 1 upper case letter and 1 lower case letter as well as at least 1 number. documented in this encounter Progress Notes , Amilcar Nelson MD, FACS - 08/24/2018 8:40 AM PSTFormatting of this note might be diff erent from the original. Surgery Note Referring Provider: Silvina Alcantar MD Patient Identification: David Kerr Jr. 1945 Is a 72 y.o. male , a pat ient of Gregory Drummond MD. Patient is here with his . Chief Complaint: Chief Complaint Patient presents with New Patient Est Pt Consultation AV fistula creation HISTORY OF PRESENT ILLNESS Patients Preliminary Questionnaire: Have you started dialysis yet? yes How many years have been dialyzed? 2 months Are you a candidate for kidney transplantation? Yes Who is your Primary Care ? Gregory Drummond MD Who is your Heel Stainer/Kidney Specialist ? Dr. Alcantar When was the current dialysis access placed? RIGHT IJ tunnel HD catheter placed on 07/[address] Wallace What problems are there with the current dialysis access? N/A Physician notes: Patient arrives today to consult on AV Fistula creation. Patient is currently dialyzing via RIGHT IJ tunnel HD catheter placed on 07/03/[address] Wallace. Reports he was told the IJ t unneled catheter is not "cleaning his blood as good as it should". He is RIGHT hand dominant. Denies bilateral arm pain, denies excessive IV's in RIGHT arm According to notes patient was recently discharged from [facility] on 07/08/2018 where he was ad mitted on 06/26/2018 for severe sepsis with septic shock. Patient is does not ambulate without his walking. Reports leg pain when walking, he believe s the pain is due to his bilateral leg edema. States legs get tight and full and cause him p ain. CARDIAC: Prior [place], unsure of the date. He denies chest pain or tightness.Had heart surgery about 10 years ago. Patient has a LEFT chest pacemaker RISK: Former smoker, current 30 year diabetic. EVITA: 5 DATA/RECENT IMAGING VAS UPPER EXTREMITY VEIN MAPPING BILATERAL on 08/17/2018 FINDINGS: Imaging is performed for upper extremity vein mapping. Please refer to the scanned in image for details regarding vessel sizes. There are no identified thromboses. IMPRESSION - Vein mapping study. Dictated and Signed by: Chet Cuevas MD at [facility] Impressions: 1. Hepatomegaly. 2. Cholelithiasis. 3. Ascites and extensive subcutaneous edema. 4. Right adrenal nodule which is slightly smaller than previously. 5. Renal atrophy. 6. Atherosclerosis. 7. Cardiomegaly. 8. Fat containing midline abdominal hernia. Electronically signed by Mohsen Guerra I have reviewed these images and agree with Radiologists findings. ECHO Complete on 06/16/2018 Conclusion 1. Moderate biatrial dilatation. 2. Moderate left atrial dilatation with normal wall thickness. There is a moderate global hypokinesis of left ventricle. Overall, left ventricular systolic function is moderately d ecreased. LVEF is 35-40%. 3. Moderately dilated right ventricular cavity with normal wall thickness and a mildly red uced right ventricular systolic function. 4. Severe pulmonary hypertension with a peak systole pressure of 80-85 mmHg. 5. Mildly thickened and calcified trileaflet aortic valve with adequate opening. 6. Mildly thickened and calcified mitral valve with the trace mitral valve regurgitation. 7. Moderate to severe central tricuspid valve regurgitation. 8. Dilated IVC without respiratory collapse suggesting fluid retention. Gregory Drummond MD's notes were not reviewed in clinic today. PAST MEDICAL HISTORY Past Medical History: Diagnosis Date Arteriosclerotic cardiovascular disease Chest pain Claustrophobia Diabetes type 2, controlled (HCC) Dialysis patient (HCC) Gout Heart attack (HCC) Hypercholesteremia Hyperlipidemia Hypertension Left arm pain Pacemaker Medtronic Pulmonary hypertension (HCC) Sleep apnea Venous insufficiency Past Surgical History: Procedure Laterality Date CATARACT [...] defibrilator ; Surgeon: Meredith forbes MD; Location: [facility] pacemaker medtronic SHUNT PLACEMENT/INSERTION Right 07/03/2018 Procedure: INSERTION SHUNT HEMODIALYSIS W/ PERMACATH; Surgeon: Melba Wallace MD; L ocation: [facility] OR Allergies Allergen Reactions Morphine Other (See Comments) Changes personality to "mean" "get mean" Medications: Outpatient Encounter Prescriptions as of 08/24/2018 Medication Sig Dispense Refill albuterol-ipratropium 2.5-0.5 mg/3 mL SOLN Take 3 mLs by nebulization every 4 hours as needed for Wheezing or Shortness of Breath. (Patient not taking: Reported on 08/24/2018) 360 mL 0 allopurinol (ZYLOPRIM) 300 mg tablet Take 150 mg by mouth Daily. aluminum & magnesium hydroxide-simethicone (MAALOX PLUS REGULAR STRENGTH) 200-200-20 mg /5 mL suspension Take 30 mLs by mouth every 6 hours as needed for Indigestion. 0 aspirin 81 MG tablet Take 81 mg by mouth. Three times a week atorvaSTATin (LIPITOR) 40 mg tablet Take 40 mg by mouth nightly. calcium carbonate (TUMS) 500 mg chewable tablet Take 2 tablets by mouth every 2 hours a s needed for Indigestion. 90 tablet 0 CARVEDILOL PO Take 25 mg by mouth Daily. celecoxib (CELEBREX) 200 mg capsule Take 200 mg by mouth Daily as needed for Pain. docusate sodium (COLACE) 100 MG capsule Take 100 mg by mouth 2 times daily. 30 capsule eplerenone (INSPRA) 25 mg tablet Take 25 mg by mouth Daily. ERTUGLIFLOZIN L-PYROGLUTAMICAC PO Take 10 mg by mouth Daily. fexofenadine (HECTOR) 180 mg tablet Take 180 mg by mouth Daily as needed for Allergies . furosemide (LASIX) 80 mg tablet Take 2 tablets by mouth 2 times daily. 40 tablet 0 glimepiride (AMARYL) 2 MG tablet Take 1 tablet by mouth every morning (before breakfast ). 30 tablet 0 glipiZIDE (GLUCOTROL) 5 mg tablet Take 5 mg by mouth 2 times daily. insulin lispro (HUMALOG KWIKPEN) 100 units/mL injection (pen) Inject 0-6 Units under th e skin 4 times daily (with meals and nightly). Blood Glucose (BG) < 150: None BG 150-200: DAY: 1 units.NIGHT: 0 units BG 201-250: DAY: 2 units.NIGHT: 1 units BG 251-300: DAY: 3 units.NIGHT: 2 units BG 301-350: DAY: 4 units.NIGHT: 3 units BG 351-400: DAY: 5 units.NIGHT: 4 units BG > 400: DAY: 6 units.NIGHT: 5 units (Patient not taking: Reported on 08/24) 3 mL 0 lisinopril (PRINIVIL, ZESTRIL) 5 mg tablet Take 5 mg by mouth Daily. metFORMIN (GLUCOPHAGE) 1000 MG tablet Take 1,000 mg by mouth 2 times daily. omeprazole (PRILOSEC) 40 MG capsule Take 40 mg by mouth every morning (before breakfast ). polyethylene glycol (MIRALAX) packet Take 1 diluted packet by mouth Daily as needed for Constipation. 0 SITagliptin (JANUVIA) 100 mg tablet Take 100 mg by mouth Daily. traZODone (DESYREL) 50 mg tablet Take 1 tablet by mouth nightly as needed for Insomnia. (Patient not taking: Reported on 08/24/2018) 30 tablet 0 triamcinolone (KENALOG) 0.1% cream Apply 1 Application topically Twice daily as needed for Rash. Triamcinolone Acetonide (NASACORT AQ NA) 1-2 sprays by Nasal route Daily. warfarin (COUMADIN) 5 mg tablet Take 5 mg by mouth Daily. No facility-administered encounter medications on file as of 08/24/2018. History reviewed. No pertinent family history. Social History: He reports that he quit smoking about 17 years ago. His smoking use included Cigarettes. He has a 30.00 pack-year smoking history. His smokeless tobacco use includes Chew. He reports that he drinks alcohol. He reports that he does not use drugs. REVIEW of SYSTEMS Unmarked boxes mean negative response. General: []Weight loss/gain (over 10 lbs) []Fever/chills []Night sweats Hematologic: []Bleeding/bruising tendencies []Blood transfusion []Anemia Heent: []Vision loss []Hearing loss []Sinus problems/nose bleeds []Hoarseness Respiratory: []Wheezing []Shortness of breath []Cough []Spitting up blood []On oxygen []Use CPAP machine Cardiac: []Chest pain []Palpitations/heart racing []Swelling of ankles/hands []Unusual shortness of breath [x]Difficulty sleeping flat Gastrointestinal: []Nausea/vomiting []Difficulty swallowing []Heartburn []Loss of appetite []Abdominal pain []Stomach Ulcers []Diarrhea []Constipation []Justin k or bloody stools Vascular: []Strokes/TIA's []Fainting []Difficulty with speech []Leg cramps []Pain in feet/legs at rest []Foot ulcers/so res []Varicose veins []Phlebitis/blood clots Musculoskeletal: []Joint stiffness/swelling []Joint pain []Back pain []Arthritis []Gout Urologic: []Blood in urine []Frequent urination at night []Burning/painful urination []Kidney stones []Difficulty urination []Sexual difficulties Neuro/Psychiatric: []Headaches []Seizures []Depression []Anxiety attacks []Memory loss or confusion PHYSICAL EXAM BP 128/72 | Pulse 71 | Temp 36.9 C (98.4 F) (Temporal) | Resp 16 | Ht 1.702 m (5' 7 ") | SpO2 92% | BMI 39.57 kg/m Body mass index is 39.57 kg/m. General Appearance: Alert, cooperative, no distress, appears stated age. In wheel chair. Head: Normocephalic, without obvious abnormality, atraumatic Eyes: PERRL, conjunctiva/corneas clear, vision adequate bilateral Ears: Adequate hearing Lungs: Breath sounds are equal bilaterally, no wheezes or crackles Chest Wall/Back: No tenderness or deformity. No CVA Tenderness. LEFT chest pacemaker Heart: Regular rate and rhythm, no murmur Upper Extremities: Extremities normal, atraumatic, no cyanosis, clubbing, or edema RIGHT arm with a small brachial vein visible. Palpable Pulses: RIGHT LEFT Brachial 2 Radial 2 Ulnar 0 Ultrasound: See report. Neurologic: Cranial nerves II-XII grossly intact, UE motor ULTRASOUND REPORT: PATIENT NAME : David Kerr Jr. EQUIPMENT: Sonibeatyou M-Sinao with 10-5 mHertz probe. INDICATIONS: Dialysis access evaluation FINDING: RIGHT cephalic vein measures 2.6 mm RIGHT brachial artery measures 5.3 mm, good flow present. RIGHT basilic vein measures 2.7 mm. IMPRESSION: Borderline RIGHT cephalic vein for access. Lab Results Component Value Date NA 136 07/08/2018 K 4.8 07/08/2018 CL 102 07/08/2018 CO2 27 07/08/2018 BUN 52 (H) 07/08/2018 CREA 1.99 (H) 07/08/2018 Lab Results Component Value Date WBC 9.1 07/05/2018 HGB 11.9 (L) 07/05/2018 HCT 36.9 (L) 07/05/2018 MCV 99.2 07/05/2018 PLT 119 (L) 07/05/2018 Lab Results Component Value Date INR 1.1 06/27/2018 INR 1.0 06/26/2018 INR 2.0 (A) 10/14/2014 PROTIME 14.1 (H) 06/27/2018 PROTIME 13.5 06/26/2018 ASSESSMENT 1. ESRD (end stage renal disease) ([facility]) Case request: RIGHT arm AVF (brachial - cephalic v ein) or AV graft; Right PLAN 1. Recommend RIGHT arm AV Fistula-- brachial to cephalic OR AV graft The indications, alternatives, risks, and benefits have been discussed with the patient in detail. Risks include bleeding, infection, damage to surrounding structures, failure to mat ure, arterial steal, hand dysfunction, additional procedures, life-threatening events, and u nforeseen complications. I have provided time for the patient to ask any questions they may have. Will Plan surgery for Wednesday September 05, 2018 Take last dose of Warfin on 08/31/2018 On day of surgery insulin, no lisinopril, no metformin Return to clinic: Post Op. Amilcar Hampton MD, FACS Vascular and General Surgery CC: Gregory Drummond MD, Silvina Alcantar MD documented i n this encounter Plan of Treatment +--------+ + + + + | Date | Type | Specialty | Care Team | Description | +--------+ + + + + | 07/16/ | Off-Site | Nephrology | Maty Tian | | | 2018 | Visit | | DO Rolan [address] [place] [address] | | | | | | [address] | | | | | | [place] | | | | | | [address] | | | | | | | | +--------+ + + + + | 09/25/ | Office | Cardiology | Sheldon Spence | | | 2019 | Visit | | MD [address] | | | | | | [address] | | | | | | [place] | | | | | | [address] | | | | | | | [...] [place] | | | | | | [address] | | | | | | | | +--------+ + + + + documented as of this encounter Visit Diagnoses + + | Diagnosis | + + | ESRD (end stage renal disease) (HCC) - Primary End stage renal disease | + + documented in this encounter
--- OUTSIDE RECORDS SUMMARY | ~2019-07-14 | XMS | Encounter Summary ---
Demographics + + + | Address | [address] | | | [place] [address] | + + + | Home Phone | | + + + | Preferred Language | Unknown | + + + | Marital Status | | + + + | Orthodox Affiliation | 1041 | + + + | Race | Unknown | + + + | Ethnic Group | Unknown | + + + Author + + + | Author | [facility] | | | and [place] | + + + | Organization | [facility] | | | and [place] | + + + | Address | Unknown | + + + | Phone | Unavailable | + + + Support + + + + + | Name | Relationship | Address | Phone | + + + + + | Lula Kerr | ECON | [address] | | | | | [place] | | | | | [address] | | + + + + + Care Team Providers + +------+ + | Care Orange Grower Name | Role | Phone | + +------+ + | Gregory Drummond MD | PCP | | + +------+ + Encounter Details +--------+ + + + + | Date | Type | Department | Care Team | Description | +--------+ + + + + | 07/05/ | Orders Only | [facility] [place] | Naga Paul | ESRD (end stage | | 2019 | | [place] [address] Beckham MD [address] | renal disease) on | | | | [address] [place] | dialysis (HCC) | | | | [place], [place] | [place] [address] | (Primary Dx); Type 2 | | | | [address] | [phone] | diabetes mellitus | | | | [phone] | | with chronic kidney | | | | | | disease on chronic | | | | | | dialysis, without | | | | | | long-term current | | | | | | use of insulin | | | | | | (HCC); Persistent | | | | | | atrial fibrillation; | | | | | | Arteriosclerotic | | | | | | cardiovascular | | | | | | disease | +--------+ + + + + Social [...] 2018 | Visit | | DO Rolan [address] [place] [address] | | | | | | [address] | | | | | | [place] | | | | | | [phone] | | | | | | | | +--------+ + + + + | 09/25/ | Office | Cardiology | Sheldon Spence | | | 2019 | Visit | | MD [address] | | | | | | [address] | | | | | | [place] | | | | | | [phone] | | | | | | | [...] [place] | | | | | | [address] | | | | | | | | +--------+ + + + + + +------+--------+ + + | Name | Type | Priori | Associated Diagnoses | Order Schedule | | | | ty | | | + +------+--------+ + + | Basic Metabolic | Lab | Routin | ESRD (end stage | 1 Occurrences | | Panel | | e | renal disease) on | starting 07/05/2019 | | | | | dialysis ([facility]) Type | until 07/05/2020 | | | | | 2 diabetes mellitus | | | | | | with chronic kidney | | | | | | disease on chronic | | | | | | dialysis, without | | | | | | long-term current | | | | | | use of insulin (HCC) | | | | | | Persistent atrial | | | | | | fibrillation (HCC) | | | | | | Arteriosclerotic | | | | | | cardiovascular | | | | | | disease | | + +------+--------+ + + | CBC with | Lab | Routin | ESRD (end stage | 1 Occurrences | | Differential | | e | renal disease) on | starting 07/05/2019 | | | | | dialysis (HCC) Type | until 07/05/2020 | | | | | 2 diabetes mellitus | | | | | | with chronic kidney | | | | | | disease on chronic | | | | | | dialysis, without | | | | | | long-term current | | | | | | use of insulin (HCC) | | | | | | Persistent atrial | | | | | | fibrillation (HCC) | | | | | | Arteriosclerotic | | | | | | cardiovascular | | | | | | disease | | + +------+--------+ + + documented as of this encounter Visit Diagnoses + + | Diagnosis | + + | ESRD (end stage renal disease) on dialysis (HCC) - Primary End stage renal disease | + + | Type 2 diabetes mellitus with chronic kidney disease on chronic dialysis, without | | long-term current use of insulin (HCC) | + + | Persistent atrial fibrillation Atrial fibrillation | + + | Arteriosclerotic cardiovascular disease Unspecified cardiovascular disease | + + documented in this encounter Additional Health Concerns + + + + | Infection | Noted Time | Resolved Time | + + + + | Methicillin-resistant Staphylococcus aureus | 10/30/2018 9:33 AM | | | | PDT | | + + + + documented as of this encounter"
--- OUTSIDE RECORDS SUMMARY | ~2019-07-14 | XMS | Encounter Summary ---
Demographics + + + | Address | [address] | | | [place] [address] | + + + | Home Phone | | + + + | Preferred Language | Unknown | + + + | Marital Status | | + + + | Restorationism Affiliation | 1041 | + + + [...] + | Lula Kerr | ECON | [address] | | | | | [place] | | | | | [address] | | + + + + + Care Team Providers + +------+ + | Care Legal Billing Clerk Name | Role | Phone | + +------+ + | Gregory Drummond MD | PCP | | + +------+ + Encounter Details +--------+ + + + + | Date | Type | Department | Care Team | Description | +--------+ + + + + | 09/16/ | [facility] | [facility] | Charisse [place] | | | 2014 | Encounter | MED CTR OR INTRA OP | MD [address] | | | | | [address] | [place], | | | | | [place], [place] | [place] [address] | | | | | [address] | [phone] | | | | | [phone] | | | +--------+ + + + [...] colors. The IOL normally lasts a lifetime. 2932-[address] [employer] [place] [address], [place] [address]. All righ ts reserved. This information is [...] 2018 | Visit | | DO Rolan [address] [place] [address] | | | | | | [address] | | | | | | [place] | | | | | | [phone] | | | | | | | | +--------+ + + + + | 09/25/ | Office | Cardiology | Sheldon Spence | | | 2019 | Visit | | MD [address] | | | | | | [address] | | | | | | [place] | | | | | | [phone] | | | | | | | [...] [place] | | | | | | [address] | | | | | | | [...] + | [facility] | [address] | [place], [place] | [phone] | | [facility] | | [address] | | | - LABORATORY | | | | + + + + + | [facility] | [address] | [place], [place] | | | [facility] | | [address] | | | - LABORATORY | | [...]
--- OUTSIDE RECORDS SUMMARY | ~2019-07-14 | XMS | Encounter Summary ---
Demographics + + + | Address | [address] | | | [place] [address] | + + + | Home Phone | | + + + | Preferred Language | Unknown | + + + | Marital Status | | + + + | Religion Affiliation | 1041 | + + + [...] + | Lula Kerr | ECON | [address] | | | | | [place] | | | | | [address] | | + + + + + Care Team Providers + +------+ + | Care Lithographer Helper Name | Role | Phone | [...] Ninfa GLEASON | | | | | [phone] | [place] [address] | | +--------+ + + + + [...] | Visit | | DO Rolan [address] | | | | | | [address] | | | | | | [place] | | | | | | [address] | | | | | | | | +--------+ + + + + | 09/25/ | Office | Cardiology | Sheldon Spenec | | | 2019 | Visit | | MD [address] | | | | | | [address] [address] | | | | | | [place] | | | | | | [address] | | | | | | | [...] [place] | | | | | | [address] | | | | | | | [...]
--- OUTSIDE RECORDS SUMMARY | ~2019-07-14 | XMS | Encounter Summary ---
Demographics + + + | Address | [address] | | | [place] [address] | + + + | Home Phone | | + + + | Preferred Language | Unknown | + + + | Marital Status | | + + + | Baptism Affiliation | 1041 | + + + | Race | Unknown | + + + | Ethnic Group | Unknown | + + + Author + + + | Author | [facility] | | | and [place] | + + + | Organization | [facility] | | | and [place] | + + + | Address | Unknown | + + + | Phone | Unavailable | + + + Support + + + + + | Name | Relationship | Address | Phone | + + + + + | Lula Kerr | ECON | [address] | | | | | [place] | | | | | [address] | | + + + + + Care Team Providers + +------+ + | Care Blue Print Control Clerk Name | Role | Phone | [...] Specialty | Surgery / | Diagnoses | Alcantar, | Rodrigo, | | | Services | General | ESRD (end | Silvina Moses, | Melba Bolaños, | | | Required | Surgery | stage renal | MD [address] | | | | | disease) on | [address] | [address] | | | | | dialysis | [address] [place] | [place], | | | | | (HCC) | [place], [place] | [place] [address] | | | | | Vascular | [address] | Phone: | | | | | dialysis | Phone: | [phone] | | | | | catheter in | [phone] | Fax: | | | | | place ([facility]) | Fax: | [phone] | | | | | Procedures | [phone] | | | | | | [place] [facility] | | | | | | | CTR VAD | | | | | | | W/SUBQ | | | | | | | PORT/CUSTOMER SUCCESS INTERN | | | | | | | CTR/PRPH | | | | | | | INSJ AK | | | | | | | REMOVAL | | | | | | | TUNNELED CV | | | | | | | CATH | | | +--------+ + + + + + Encounter Details +--------+ + + + + | Date | Type | Department | Care Team | Description | +--------+ + + + + | 10/04/ | Orders Only | [facility] [place] | Silvina Alcantar W, | ESRD (end stage | | 2019 | | NEPHROLOGY [address] | [address] | renal disease) on | | | | [address] | [address] [place] | dialysis (HCC) | | | | [place], [place] | [place] [address] | (Primary Dx); | | | | [address] | [phone] | Vascular dialysis | | | | [phone] | | catheter in place | | | | | | (HCC) [...] 2018 | Visit | | DO Rolan [address] [place] [address] | | | | | | [address] | | | | | | [place] | | | | | | [address] | | | | | | | | +--------+ + + + + | 09/25/ | Office | Cardiology | Sheldon Spence | | | 2019 | Visit | | MD [address] | | | | | | [address] | | | | | | [place] | | | | | | [address] | | | | | | | [...] [place] | | | | | | [address] | | | | | | | | +--------+ + + + + + + +--------+ + + | Name | Type | Priori | Associated Diagnoses | Order Schedule | | | | ty | | | + + +--------+ + + | * ÓSCAR MCMILLAN General | Outpatient | Routin | ESRD (end stage | Ordered: 10/04/2018 | | Surgery - AMB | Referral | e | renal disease) on | | | Referral | | | dialysis ([facility]) | | | | | | Vascular dialysis | | | | | | catheter in place | | | | | | ([facility]) | | + + +--------+ + + documented as of this encounter Visit Diagnoses + + | Diagnosis | + + | ESRD (end stage renal disease) on dialysis (HCC) - Primary End stage renal disease | + + | Vascular dialysis catheter in place ([facility]) Renal dialysis status | + + documented in this encounter"
--- OUTSIDE RECORDS SUMMARY | ~2019-07-14 | XMS | Encounter Summary ---
Demographics + + + | Address | [address] | | | [place] [address] | + + + | Home Phone | | + + + | Preferred Language | Unknown | + + + | Marital Status | | + + + | Mormonism Affiliation | 1041 | + + + | Race | Unknown | + + + | Ethnic Group | Unknown | + + + Author + + + | Author | [facility] | | | and [place] | + + + | Organization | [facility] | | | and [place] | + + + | Address | Unknown | + + + | Phone | Unavailable | + + + Support + + + + + | Name | Relationship | Address | Phone | + + + + + | Lula Kerr | ECON | [address] | | | | | [place] | | | | | [address] | | + + + + + Care Team Providers + +------+ + | Care Car Mechanic Helper Name | Role | Phone | + +------+ + PCP | Unavailable | + +------+ + Encounter Details +--------+ + + + + | Date | Type | Department | Care Team | Description | +--------+ + + + + | 10/04/ | Hospital | [facility] | | Backache, | | 1999 | Encounter | CONVERSION [address] | | unspecified | | | | [address] | | | | | | [place] | | | | | | [address] | | | | | | [phone] | | | +--------+ + + + [...] 2019 | Visit | | DO Rolan [address] [place] [address] | | | | | | [address] | | | | | | [place] | | | | | | [address] | | | | | | | | +--------+ + + + + | 09/25/ | Office | Cardiology | Sheldon Spence | | | 2019 | Visit | | MD [address] | | | | | | [address] [address] | | | | | | [place] | | | | | | [address] | | | | | | | [...] [place] | | | | | | [address] | | | | | | | | +--------+ + + + + documented as of this encounter Visit Diagnoses + + | Diagnosis | + + | Backache, unspecified | + + documented in this encounter"
--- OUTSIDE RECORDS SUMMARY | ~2019-07-14 | XMS | Encounter Summary ---
Demographics + + + | Address | [address] | | | [place] [address] | + + + | Home Phone | | + + + | Preferred Language | Unknown | + + + | Marital Status | | + + + | Bahai Affiliation | 1041 | + + + | Race | Unknown | + + + | Ethnic Group | Unknown | + + + Author + + + | Author | [facility] | | | and [place] | + + + | Organization | [facility] | | | and [place] | + + + | Address | Unknown | + + + | Phone | Unavailable | + + + Support + + + + + | Name | Relationship | Address | Phone | + + + + + | Lula Kerr | ECON | [address] | | | | | [place] | | | | | [address] | | + + + + + Care Team Providers + +------+ + | Care Sales Representative Gas Service Name | Role | Phone | + +------+ + | Gregory Drummond MD | PCP | | + +------+ + Encounter Details +--------+ + + + + | Date | Type | Department | Care Team | Description | +--------+ + + + + | 10/30/ | Orders Only | [facility] | Marline Morse, REGULATORY AFFAIRS SPECIALIST | | | 2019 | | MED CTR PULMONARY | | | | | | FUNCTION [address] | | | | | | [place], | | | | | | [place] [address] | | | | | | [phone] | | | +--------+ + + + [...] | Visit | | M, DO [address] | | | | | | [place] | | | | | | [place] | | | | | | [address] | | | | | | | | +--------+ + + + + | 09/25/ | Office | Cardiology | Sheldon Spence | | | 2019 | Visit | | MD [address] | | | | | | [address] [address] | | | | | | [place] | | | | | | [address] | | | | | | | [...] [place] | | | | | | [address] | | | | | | | [...]
--- OUTSIDE RECORDS SUMMARY | ~2019-07-14 | XMS | Encounter Summary ---
Demographics + + + | Address | [address] | | | [place] [address] | + + + | Home Phone [...] + | Lula Kerr | ECON | [address] | | | | | [place] | | | | | [address] | | + + + + + Care Team Providers + +------+ + | Care Birth Attendant Name | Role | Phone | + +------+ + | Gregoyr Drummond MD | PCP | | + +------+ + Encounter Details +--------+ + + + + | Date | Type | Department | Care Team | Description | +--------+ + + + + | 12/17/ | [facility] | [facility] | Meredith Medina MD | | | 2016 | Encounter | MED CTR OR PRE OP | [address] | | | | | [address] [place] | [place] | | | | | [place] [address] | [address] | | | | | [phone] | [phone] | | | | | | | [...] | Visit | | DO Rolan [address] | | | | | | [address] | | | | | | [place] | | | | | | [address] | | | | | | | | +--------+ + + + + | 09/25/ | Office | Cardiology | Sheldon Spence | | | 2019 | Visit | | MD [address] | | | | | | [address] [address] | | | | | | [place] | | | | | | [address] | | | | | | | [...] [place] | | | | | | [address] | | | | | | | [...] [address] | [place] | [phone] | | [facility] | | [address] | | | - LABORATORY | | [...] | | | Fragments of hyperplastic polyp. IRG:[facility]:C2NR GROSS | | | DESCRIPTION: A. The [...] | dimension. Submitted intact in cassette (D1). tn:[facility]: | | | PERFORMING LABORATORY: Tissue processing and slide preparation were | | | performed by [employer], [address] [place] [address] | | | [place] [address] (Precipitate Washer: Delano Le D.O..; CLIA#: | | | [id number]). Professional interpretation was performed at [facility] | | | [address] [address] | | | (CLIA#: [id number]). Diagnostician: Davidson Cam MD | | | [...]
--- OUTSIDE RECORDS SUMMARY | ~2019-07-14 | XMS | Encounter Summary ---
Demographics + + + | Address | [address] | | | [place] [address] | + + + | Home Phone | | + + + | Preferred Language | Unknown | + + + | Marital Status | | + + + | Jain Affiliation | 1041 | + + + | Race | Unknown | + + + | Ethnic Group | Unknown | + + + Author + + + | Author | [facility] | | | and [place] | + + + | Organization | [facility] | | | and [place] | + + + | Address | Unknown | + + + | Phone | Unavailable | + + + Support + + + + + | Name | Relationship | Address | Phone | + + + + + | Lula Kerr | ECON | [address] | | | | | [place] | | | | | [address] | | + + + + + Care Team Providers + +------+ + | Care High School Principal Name | Role | Phone | + +------+ + | Gregory Drummond MD | PCP | | + +------+ + Reason for Visit + + + | Reason | Comments | + + + | Lab Order | collection location clarification | + + + Encounter Details +--------+ + + + + | Date | Type | Department | Care Team | Description | +--------+ + + + + | 07/10/ | Telephone | [facility] | Paul Nielson | Lab Order | | 2019 | | [address] | MD [place] [address] | (collection location | | | | [address] | [address] [place] | clarification) | | | | [place] | [place] [address] | | | | | [address] | [phone] | | | | | [phone] | | | +--------+ + + + [...] 2018 | Visit | | DO Rolan [address] [place] [address] | | | | | | [address] | | | | | | [place] | | | | | | [phone] | | | | | | | | +--------+ + + + + | 09/25/ | Office | Cardiology | Sheldon Spence | | | 2019 | Visit | | MD [address] | | | | | | [facility] | | | | | | [place] | | | | | | [phone] | | | | | | | [...] [place] | | | | | | [address] | | | | | | | [...]
--- OUTSIDE RECORDS SUMMARY | ~2019-07-14 | XMS | Encounter Summary ---
Demographics + + + | Address | [address] | | | [place] [address] | + + + | Home Phone | | + + + | Preferred Language | Unknown | + + + | Marital Status | | + + + | Rastafari Affiliation | 1041 | + + + [...] + | Lula Kerr | ECON | [address] | | | | | [place] | | | | | [address] | | + + + + + Care Team Providers + +------+ + | Care Manager Mall Name | Role | Phone | + +------+ + | Gregory Drummond MD | PCP | | + +------+ + Encounter Details +--------+---------+ + + + | Date | Type | Department | Care Team | Description | +--------+---------+ + + + | 09/05/ | Surgery | [facility] | Amilcar Hampton | RIGHT arm AVF | | 2019 | | MED CTR OR INTRA OP | MD Omar, FACS [address] | | | | | [address] | [address] [address] | | | | | [place], [place] | [place] [address] | | | | | [address] | [phone] | | | | | [phone] | | | +--------+---------+ + + + [...] Discharge Instructions Instructions Lyn Vill[facility]ueva [facility] Arterio-Venous Fistula 1. Keep [...] You can't be awakened Date Last Reviewed: 05/11/201619994103-7004 [employer]. [address] [place] [address]. All righ ts reserved. This information is [...] | Visit | | DO Rolan [address] | | | | | | [address] | | | | | | [place] | | | | | | [address] | | | | | | | | +--------+ + + + + | 09/25/ | Office | Cardiology | Sheldon Spence | | | 2019 | Visit | | MD [address] | | | | | | [address] [address] | | | | | | [place] | | | | | | [address] | | | | | | | [...] [place] | | | | | | [address] | | | | | | | [...] | | | Notes | | | | | | Field, | | | [...] mL/min/1.73m2 | [facility] | | | [facility] | RATE,ESTIMATED | | MEDICAL | | | | mL/min/1.14o7Imsj than | | CENTER - | | [...] ST. | [address] | [place] | [phone] | | [facility] | | [address] | | | - LABORATORY | | | | + + + + + documented in this encounter Visit Diagnoses Not on filedocumented in this encounter Administered Medications + +--------+---------+------+------+------+ [...] Shortness of Breath, | | | Starting e 09/05/18 at 1819, For | | | 1 dose, Recovery/Phase I | | + +---+ | | | + +---+ + +-------+ +--------+---+ + | bupivacaine 0.25%-EPINEPHrine | Given | 09/05/19 | 15 mLs | | Surgical | | 1:200,000 injection PRN, | | 19 5:01 | | | Site | | Starting [facility] 09/05/18 at 1701, | | PM PST | | | | | Intra-op | | | | | | + +-------+ +--------+---+ + + +---+ | | | + +---+ | dexamethasone (DECADRON) 4 | | | mg/mL injection 4 mg 4 mg, | | | Intravenous, ONCE PRN, Nausea, | | | Starting Tue09/05/18 at 1819, For | | | 1 [...] | | | HR under 40, Starting Tue09/05/18 | | | at 1819, Hold if [...] MIN PRN, | | | Pain, Starting 09/05/18 at | | | 1819, Maximum total [...] DBP > 100, Starting | | | 09/05/18 at 1819, Maximum | | | total [...] ONCE | | | PRN, Nausea, Starting e 09/05/18 | | | at 1819, For [...]
--- OUTSIDE RECORDS SUMMARY | ~2019-07-14 | XMS | Encounter Summary ---
Demographics + + + | Address | [address] | | | [place] [address] | + + + | Home Phone | | + + + | Preferred Language | Unknown | + + + | Marital Status | | + + + | Gnosticist Affiliation | 1041 | + + + | Race | Unknown | + + + | Ethnic Group | Unknown | + + + Author + + + | Author | [facility] | | | and [place] | + + + | Organization | [facility] | | | and [place] | + + + | Address | Unknown | + + + | Phone | Unavailable | + + + Support + + + + + | Name | Relationship | Address | Phone | + + + + + | Lula Kerr | ECON | [address] | | | | | [place] | | | | | [address] | | + + + + + Care Team Providers + +------+ + | Care Fuel Attendant Name | Role | Phone | + +------+ + | Gregory Drummond MD | PCP | | + +------+ + Reason for Referral Evaluate & Treat (Emergency) + + + [...] | | | | | Procedures | [place] | [address] | | | | | DOS 07/06/19 | [address] [place] | [address] [place] | | | | | | [place], [place] | [place], [place] | | | | | | [address] | [address] Phone: | | | | | | Phone: | [phone] | | | | | | [phone] | Fax: | | | | | | Fax: | [phone] | | | | | | [phone] | | + + + + + + + Encounter Details +--------+ + + + + | Date | Type | Department | Care Team | Description | +--------+ + + + + | 07/05/ | Orders Only | [facility] [place] | Maty Tian | Paraspinal mass | | 2019 | | NEPHROLOGY [address] | M, DO [address] | (Primary Dx) | | | | [address] | [place] | | | | | [place], [place] | [place], [place] | | | | | [address] | [address] | | | | | [phone] | | | +--------+ + + + [...] | Visit | | DO Rolan [address] | | | | | | [address] | | | | | | [place] | | | | | | [address] | | | | | | | | +--------+ + + + + | 09/25/ | Office | Cardiology | Sheldon Spence | | | 2019 | Visit | | MD [address] | | | | | | [address] | | | | | | [place] | | | | | | [address] | | | | | | | [...] [place] | | | | | | [address] | | | | | | | | +--------+ + + + + + + +--------+ + + | Name | Type | Priori | Associated Diagnoses | Order Schedule | | | | ty | | | + + +--------+ + + | * ÓSCAR MCMILLAN | Outpatient | STAT | Paraspinal mass | Ordered: 07/05/2019 | | Neurosurgery - AMB | Referral | | | | | Referral | | | | | + + +--------+ + + documented as of this encounter Visit Diagnoses + + | Diagnosis | + + | Paraspinal mass - Primary Other symptoms involving nervous and musculoskeletal | | systems | + + documented in this encounter Additional Health Concerns + + + + | Infection | Noted Time | Resolved Time | + + + + | Methicillin-resistant Staphylococcus aureus | 10/30/2018 9:33 AM | | | | PDT | | + + + + documented as of this encounter"
--- OUTSIDE RECORDS SUMMARY | ~2019-07-14 | XMS | Encounter Summary ---
Demographics + + + | Address | [address] | | | [place] [address] | + + + | Home Phone | | + + + | Preferred Language | Unknown | + + + | Marital Status | | + + + | Faith Affiliation | 1041 | + + + | Race | Unknown | + + + | Ethnic Group | Unknown | + + + Author + + + | Author | [facility] | | | and [place] | + + + | Organization | [facility] | | | and [place] | + + + | Address | Unknown | + + + | Phone | Unavailable | + + + Support + + + + + | Name | Relationship | Address | Phone | + + + + + | Lula Kerr | ECON | [address] | | | | | [place] | | | | | [address] | | + + + + + Care Team Providers + +------+ + | Care Softball Player Name | Role | Phone | + [...] | dialysis (HCC) | | | | [place], [place] | [place] [address] | (Primary Dx); Type 2 | | | | [address] | [phone] | diabetes mellitus | | | | [phone] | | with chronic kidney | | [...] 2018 | Visit | | DO Rolan [address] [place] [address] | | | | | | [address] | | | | | | [place] | | | | | | [phone] | | | | | | | | +--------+ + + + + | 09/25/ | Office | Cardiology | Sheldon Spence | | | 2019 | Visit | | MD [address] | | | | | | [address] | | | | | | [place] | | | | | | [phone] | | | | | | | [...] [place] | | | | | | [address] | | | | | | | [...] 07/05/2019 | | | | | dialysis ([facility]) Type | until 07/05/2020 | [...]
--- OUTSIDE RECORDS SUMMARY | ~2019-07-14 | XMS | Encounter Summary ---
Demographics + + + | Address | [address] | | | [place] [address] | + + + | Home Phone | | + + + | Preferred Language | Unknown | + + + | Marital Status | | + + + | Sikh Affiliation | 1041 | + + + | Race | Unknown | + + + | Ethnic Group | Unknown | + + + Author + + + | Author | [facility] | | | and [place] | + + + | Organization | [facility] | | | and [place] | + + + | Address | Unknown | + + + | Phone | Unavailable | + + + Support + + + + + | Name | Relationship | Address | Phone | + + + + + | Lula Kerr | ECON | [address] | | | | | [place] | | | | | [address] | | + + + + + Care Team Providers + +------+ + | Care Pearl Glue Drier Name | Role | Phone | + [...] | | | | disease) on | [place] [address] | [address] | | | | | dialysis | [address] [place] | [address] [address] | | | | | (HCC) | [facility] [place] | [place], [place] | | | | | Complication | [address] | [address] Phone: | | | | | of | Phone: | [phone] | | | | | arteriovenou | [phone] | Fax: | | | | | s dialysis | Fax: | [phone] | | | | | fistula, | [phone] | | | | | | initial | | | | | | | encounter | | | +--------+ + + + + + Encounter Details +--------+ + + + + | Date | Type | Department | Care Team | Description | +--------+ + + + + | 12/11/ | Orders Only | [facility] [place] | Silvina Alcanatr W, | ESRD (end stage | | 2019 | | NEPHROLOGY [address] | [address] | renal disease) on | | | | [address] | [address] [place] | dialysis (HCC) | | | | [place], [place] | [place] [address] | (Primary Dx); | | | | [address] | [phone] | Complication of | | | | [phone] | | arteriovenous | | | | [...] | Visit | | DO Rolan [address] | | | | | | [address] | | | | | | [place] | | | | | | [address] | | | | | | | | +--------+ + + + + | 09/25/ | Office | Cardiology | Sheldon Spence | | | 2019 | Visit | | MD [address] | | | | | | [place] | | | | | | [place] | | | | | | [address] | | | | | | | [...] [place] | | | | | | [address] | | | | | | | [...] | | Radiology | | | dialysis ([facility]) | | | | | | Complication [...]
--- OUTSIDE RECORDS SUMMARY | ~2019-07-14 | XMS | Encounter Summary ---
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 Machine Operator Name | Role | Phone | [...] + + | 10/26/ | Hospital | [facility] | Brian Snyder MD | Pneumonia due to | | 2019 - | Encounter | [facility] | [address] | infectious organism, | | | | [address] | [place] | unspecified | | 11/01/ | | [place] [address] | [id number] | laterality, | | 2019 | | [phone] | | unspecified part of | | | | | Hali Daniel | lung (Primary Dx); | | | | | MD Marcelo [address] | Sepsis, due to | | | | | [address] [place] | unspecified organism | | | | | [place] [id number] | (HCC); Elevated | | | | | [phone] | troponin; Acute | | | | | | respiratory failure | | | | | | with hypoxia ([facility]); | | | | | | Clinical sepsis | | | | | | ([facility]); ESRD (end | | | | | | stage renal disease) | | | | | | on dialysis ([facility]); | | | | | | Ischemic | | | | | | cardiomyopathy; HCAP | | | | | | | | | | | | (healthcare-associat | | | | | | ed pneumonia); ESRD | | | | | | (end stage renal | | | | | | disease) ([facility]); | | | | | | Coronary artery | | | | | | disease, angina | | | | | | presence | | | | | | unspecified, | | | | | | unspecified vessel | | | | | | or lesion type, | | | | | | unspecified whether | | | | | | [place] or | | | | | | [...] might be different fr om the original. [facility] DISCHARGE SUMMARY Pt. Name/Age/: David Romero [...] NGT D. Respiratory sputum 10/26 strep pneumo, vale sens, MRSA culture + On vanc/zosyn started [...] CABG and AIC D (replaced December 2017 [place]), Now follows with Dr Luo (comes to [facility] from [facility]). Trops peaked at 0.42. Stress test [...] Specialty: Internal Medicine Contact information: [address] [facility] [address] Cardiology In 1 week. Condition: Patient being discharged with condition improved Diet: Renal, Card Less than 30 minutes were spent on discharge and coordination of post-hospital care. Electronically signed by: Richard Bell MD, 11/01/2018 10:02 [facility] Portions of this chart may have been created with [employer] voice recognition software. Occasi onal wrong-word or [...] did not show change in function. The mandate retail service merchandiser here , Dr. Damian, recommended that you follow with your mandate retail service merchandiser and continue with medical ther apy. If [...] of this encounter Progress Notes Lora Johnson, FEATHER BONER - 10/31/2018 1:23 PM PDTFormatting of this [...] office: Dr Bhanu Valentin [facility] X Outside Information Vaccines [...] him not to take them Best possible [employer] medication list after pharmacy review: PT REPORTED [...] performed and electronically signed by Diane Conti, Dry Pan Feeder 10/31/2018 10:51 Reviewed by Miller Estrella PharmD 10/31/2018 11:43 Lora Rose FEATHER BONER - 10/31/2018 10:49 AM PDTPatient had continuous oximetry overnight. He was <90% sat urated 6 hours and >90% saturated almost 4 hours of the night. He was placed on 2 lpm nasal cannula at 0400 and remained >90% saturated for the rest of the night. Richard Dotson MD - 10/31/2018 10:23 AM PDT [place], [place] HOSPITALIST PROGRESS NOTE Patient: David Romero Jr. [facility] : 1945: Age: 73 y.o. MedRec: [id number] Admission date: 10/26/2018 Hospital day # : [...] HD catheter Ischemic Cardiomyopathy with type 2 MO due to demand ischemia this admit Echo May 2018 EF 35-40 severe pulm HTN, No chest pain and EKG is paced. Prior CABG and AICD (replaced December 2017 [place]), Now follows with Dr Luo (comes to [facility] from [facility] ). Trops peaked at 0.42. Stress [...] oriented x 3 Richard Bell 10/31/2018 10:24 [facility] Silvina Mansfield M D - 10/30/2018 12:04 PM PDT [facility] NEPHROLOGY progress note Patient: David Romero Jr. [facility] : 1945 Hospital Day # 4 ASSESMENT AND PLAN 1. End-stage renal disease, on hemodialysis since Jun 2018. Access: Right upper arm AVF, created on 09/05/18. R IJ HD catheter in place. Pt dialyzes MWF in [place]. -HD today x 4 hrs, 2 K, [...] Silvina Alcantar MD Electronically signed: 10/30/2018 12:04 [facility] 10/30/2018 7:43 AM PDT RENAL DOSE [...] might be different from the origin al. [facility] PROGRESS NOTE Patient: David Romero Jr. [place] : 1945: Age: 73 y.o. MedRec: [id number] Admission date: 10/26/2018 Hospital day # : [...] HD catheter Ischemic Cardiomyopathy with type 2 MO due to demand ischemia this admit Echo May 2018 EF 35-40 severe pulm HTN No chest pain and EKG is paced. Prior CABG and AICD (replaced December 2017 [place]) Now follows with Dr Luo (comes to [facility] from [facility]). Trops peaked at 0.42 -Stress test [...] 5,000 Units Subcutaneous 2 times per day Hail Daniel MD 5,000 Units at 10/29/181999 HYDROcodone-acetaminophen [...] do AMS consult Phil Other Pharmacy Consult Miky Villarreal MD piperacillin-tazobactam (ZOSYN) 3.375 g in [...] Units Date/Time Legionella, Ag, EIA, Qual, Urine [[id number]] Collected: 10/27/181535 Order Status: Sent Lab Status: In process Updated: 10/27/181535 Specimen: Urine, Clean Catch Respiratory pathogen panel, NAAT [[id number]] (Normal) Collected: 10/27/18 1240 Order Status: Completed [...] oriented x 3 Richard Bell 10/30/2018 7:26 [facility] Silvina Mansfield M D - 10/29/2018 9:59 AM PDT [facility] NEPHROLOGY progress note Patient: David Romero Jr. [facility] : 1945 Hospital Day # 3 ASSESMENT AND PLAN 1. End-stage renal disease, on hemodialysis since Jun 2018. Access: Right upper arm AVF, created on 09/05/18. R IJ HD catheter in place. Pt dialyzes MWF in [place]. Shortened HD on 10/27/18. -HD x 4 [...] Continuous Infusions: Heparin Infusion 200 Units/hr (10/29/18 5757) norepinephrine Stopped (10/28/18 0356) PRN Meds:acetaminophen, albumin, [...] Silvina Alcantar MD Electronically signed: 10/29/2018 10:00 [facility]PH[facility] eyer, Miky Ramirez MD - 10/29/2018 8:02 AM PDT [facility] PROGRESS NOTE Patient: David Romero Jr. [facility] : 1945: Age: 73 y.o. MedRec: [id number] PCP: Gregory Drummond MD Admission date: 10/26/2018 [...] K mild Ischemic Cardiomyopathy with type 2 MO due to demand ischemia this admit Echo May 2018 EF 35-40 severe pulm HTN No chest pain and EKG is paced Prior CABG and AICD (replaced December 2017 [place]) Now follows with Dr Luo (comes to [facility] from [facility]) 6th troponins fell as expected and [...] meycritical meysign) Miky Villarreal MD 10/29/2018 8:02 [facility] Subjective CC came to ER due to [...] for input(s): IRON, TIBC, PCTSAT, FERRITIN, TSH, [id number], FOLATE in the last 168 hours. Inflammatory [...] ABG No results for input(s): PHART, PO2ART, PLR8TYD, WCS4QOQ, BEART, A1MTGMID in the last 168 h ours. No results for input(s): SPECSOURCE, PHPOCB, PCO2, PO2, HCO3, TCO2, BEART, [id number] in the last 168 hours. Drug of [...] Units Date/Time Legionella, Ag, EIA, Qual, Urine [[id number]] Collected: 10/27/18 1536 Order Status: Sent Lab Status: In process Updated: 10/27/18 1536 Specimen: Urine, Clean Catch Respiratory pathogen panel, NAAT [[id number]] (Normal) Collected: 10/27/18 1240 Order Status: Completed [...] Bordetella parapertussis/bronchiseptica NAAT Not Detected Culture, MRSA [[id number]] Collected: 10/26/18 1700 Order Status: Completed Lab Status: Final result Updated: 10/27/18 0800 Specimen: Tissue from Nares Culture 3+ Staphylococcus aureus,Methicillin resistant (MRSA) Comment: *INFECTION PREVENTION ALERT - MRSA* CONTACT PRECAUTIONS REQUIRED. Culture, Urine [[id number]] (Normal) Collected: 10/26/18 1404 Order Status: Completed Lab Status: Final result Updated: 10/28/18 1133 Specimen: Urine, Clean Catch Culture No Growth Culture, Blood [[id number]] (Normal) Collected: 10/26/18 1318 Order Status: Completed Lab Status: Preliminary result Updated: 10/27/18 0121 Specimen: Peripheral Blood Culture No growth: Monitored continually by instrument for 5 days Culture, Respiratory, Lower, Smear [[id number]] (Susceptibility) Collected: 10/26/18 1310 Order Status: Completed [...] Ceftriaxone Sensitive Not Specified Final Culture, Blood [[id number]] (Normal) Collected: 10/26/18 1309 Order Status: Completed Lab Status: Preliminary result Updated: 10/27/18 0121 Specimen: Peripheral Blood Culture No growth: Monitored continually by instrument for 5 days Influenza A and B RNA, NAAT [[id number]] (Normal) Collected: 10/26/18 1309 Order Status: Completed [...] this chart may have been created with [employer] voice recognition software. Occasi onal wrong-word or sound-alike substitutions may have occurred due to the inherent al itations of voice recognition software. Please read the chart carefully and recognize, using context, where these substitutions have occurred ery Pollard, Pharm D - 10/29/2018 5:46 AM PDT VANCOMYCIN PER PHARMACY PROTOCOL: AMS/Drug Name - vanco and zosyn Patient: David Romero Jr. [facility] [id number] Admit: 10/26/2018 12:36 RELEVANT ALLERGIES: no [...] Units Date/Time Legionella, Ag, EIA, Qual, Urine [[id number]] Collected: 10/27/18 1536 Order Status: Sent Lab Status: In process Updated: 10/27/18 1536 Specimen: Urine, Clean Catch Respiratory pathogen panel, NAAT [[id number]] (Normal) Collected: 10/27/18 1240 Order Status: Completed [...] Bordetella parapertussis/bronchiseptica NAAT Not Detected Culture, MRSA [[id number]] Collected: 10/26/18 1700 Order Status: Completed Lab Status: Final result Updated: 10/27/18 0800 Specimen: Tissue from Nares Culture 3+ Staphylococcus aureus,Methicillin resistant (MRSA) Comment: *INFECTION PREVENTION ALERT - MRSA* CONTACT PRECAUTIONS REQUIRED. Culture, Urine [[id number]] (Normal) Collected: 10/26/18 1404 Order Status: Completed Lab Status: Final result Updated: 10/28/18 1133 Specimen: Urine, Clean Catch Culture No Growth Culture, Blood [[id number]] (Normal) Collected: 10/26/18 1318 Order Status: Completed Lab Status: Preliminary result Updated: 10/27/18 0121 Specimen: Peripheral Blood Culture No growth: Monitored continually by instrument for 5 days Culture, Respiratory, Lower, Smear [[id number]] Collected: 10/26/18 1310 Order Status: Completed Lab Status: Preliminary result Updated: 10/28/18 1102 Specimen: Body Fluid from Sputum, Expectorated Culture Culture in progress... 3+ Usual Respiratory Florencia 4+ Streptococcus pneumoniae Comment: Presumptive identification Identification and susceptibility to follow. Gram Stain Result 3+ White Blood Cells 2+ Epithelial cells 2+ Gram positive cocci 3+ Gram positive bacilli 1+ Gram negative rods Culture, Blood [[id number]] (Normal) Collected: 10/26/18 1309 Order Status: Completed Lab Status: Preliminary result Updated: 10/27/18 0121 Specimen: Peripheral Blood Culture No growth: Monitored continually by instrument for 5 days Influenza A and B RNA, NAAT [[id number]] (Normal) Collected: 10/26/18 1309 Order Status: Completed [...] on norepi Prior to admission dialysis schedule: [facility] Vancomycin Dosing in HD patients: If [...] Mansfield MD - 10/28/2018 10:32 AM PDT [facility] NEPHROLOGY progress note Patient: David Romero Jr. [facility] : 1945 Hospital Day # 2 ASSESMENT AND PLAN 1. End-stage renal disease, on hemodialysis since Jun 2018. Access: Right upper arm AVF, created on 09/05/18. R IJ HD catheter in place. Pt dialyzes MWF in [place]. Shortened HD on 10/27/18. -Will plan for [...] Silvina Alcantar MD Electronically signed: 10/28/2018 10:32 [facility] Miky Jones MD - 10/28/2018 8:44 AM PDT [facility] [place] [facility] PROGRESS NOTE Patient: David Romero Jr. [facility] : 1945: Age: 73 y.o. MedRec: [id number] PCP: Gregory Drummond MD Admission date: 10/26/2018 [...] on left Ischemic Cardiomyopathy with type 2 MO due to demand ischemia this admit Echo May 2018 EF 35-40 severe pulm HTN No chest pain and EKG is paced Prior CABG and AICD (replaced December 2017 [place]) Now follows with Dr Luo (comes to [facility] from [facility]) 6th troponins fell as expected and [...] meycritical meysign) Miky Villarreal MD 10/28/2018 8:44 [facility] Subjective CC came to ER due to [...] for input(s): IRON, TIBC, PCTSAT, FERRITIN, TSH, [id number], FOLATE in the last 168 hours. Inflammatory [...] ABG No results for input(s): PHART, PO2ART, EPQ2NGK, FSL8EGY, BEART, [id number] in the last 168 h ours. No results for input(s): SPECSOURCE, PHPOCB, PCO2, PO2, HCO3, TCO2, BEART, PEDK3LFD in the last 168 hours. Drug of [...] Units Date/Time Legionella, Ag, EIA, Qual, Urine [[id number]] Collected: 10/27/18 1536 Order Status: Sent Lab Status: In process Updated: 10/27/18 153 Specimen: Urine from Urine, Clean Catch Respiratory pathogen panel, NAAT [[id number]] (Normal) Collected: 10/27/18 1240 Order Status: Completed [...] Bordetella parapertussis/bronchiseptica NAAT Not Detected Culture, MRSA [[id number]] Collected: 10/26/18 1700 Order Status: Completed Lab Status: Final result Updated: 10/27/18 0800 Specimen: Tissue from Nares Culture 3+ Staphylococcus aureus,Methicillin resistant (MRSA) Comment: *INFECTION PREVENTION ALERT - MRSA* CONTACT PRECAUTIONS REQUIRED. Culture, Urine [[id number]] (Normal) Collected: 10/26/18 1404 Order Status: Completed Lab Status: Preliminary result Updated: 10/27/18 1138 Specimen: Urine from Urine, Clean Catch Culture No growth to date Culture, Blood [[id number]] (Normal) Collected: 10/26/18 1318 Order Status: Completed Lab Status: Preliminary result Updated: 10/27/18 0121 Specimen: Blood from Peripheral Blood Culture No growth: Monitored continually by instrument for 5 days Culture, Respiratory, Lower, Smear [[id number]] Collected: 10/26/18 1310 Order Status: Completed Lab Status: Preliminary result Updated: 10/27/18 1027 Specimen: Body Fluid from Sputum, Expectorated Culture Culture in progress... 3+ Usual Respiratory Florencia 4+ Alpha-hemolytic gram positive cocci Comment: Isolating for additional information. Gram Stain Result 3+ White Blood Cells 2+ Epithelial cells 2+ Gram positive cocci 3+ Gram positive bacilli 1+ Gram negative rods Culture, Blood [[id number]] (Normal) Collected: 10/26/18 1309 Order Status: Completed Lab Status: Preliminary result Updated: 10/27/18 0121 Specimen: Blood from Peripheral Blood Culture No growth: Monitored continually by instrument for 5 days Influenza A and B RNA, NAAT [[id number]] (Normal) Collected: 10/26/18 1309 Order Status: Completed Lab Status: Final result Updated: 10/26/18 1351 Specimen: Tissue from Nares, Left Influenza A PCR Negative Influenza B PCR Negative Radiology results (more choices using dot risresults) Ct Chest Wo Contrast Result Date: 10/26/2018 CT CHEST WO CONTRAST 10/26/2018 2:58 PM HISTORY: hypoxia. COMPARISON: 10/26/2018 chest x-ray MA OTOCOL: Axial images of the chest were [...] this chart may have been created with [employer] voice recognition software. Occasi onal wrong-word or sound-alike substitutions may have occurred due to the inherent al itations of voice recognition software. Please read the chart carefully and recognize, using context, where these substitutions have occurred Al Fernandez, Pharm D - 10/28/2018 5:45 AM PDT VANCOMYCIN PER PHARMACY PROTOCOL: AMS/Drug Name - vanco and zosyn Patient: David Romero Jr. [facility] [id number] Admit: 10/26/2018 12:36 RELEVANT ALLERGIES: no [...] Units Date/Time Legionella, Ag, EIA, Qual, Urine [[id number]] Collected: 10/27/18 1536 Order Status: Sent Lab Status: In process Updated: 10/27/181535 Specimen: Urine from Urine, Clean Catch Respiratory pathogen panel, NAAT [[id number]] (Normal) Collected: 10/27/18 1240 Order Status: Completed [...] Bordetella parapertussis/bronchiseptica NAAT Not Detected Culture, MRSA [[id number]] Collected: 10/26/18 1700 Order Status: Completed Lab Status: Final result Updated: 10/27/18 0800 Specimen: Tissue from Nares Culture 3+ Staphylococcus aureus,Methicillin resistant (MRSA) Comment: *INFECTION PREVENTION ALERT - MRSA* CONTACT PRECAUTIONS REQUIRED. Culture, Urine [[id number]] (Normal) Collected: 10/26/18 1404 Order Status: Completed Lab Status: Preliminary result Updated: 10/27/18 1138 Specimen: Urine from Urine, Clean Catch Culture No growth to date Culture, Blood [[id number]] (Normal) Collected: 10/26/18 1318 Order Status: Completed Lab Status: Preliminary result Updated: 10/27/18 0121 Specimen: Blood from Peripheral Blood Culture No growth: Monitored continually by instrument for 5 days Culture, Respiratory, Lower, Smear [[id number]] Collected: 10/26/18 1310 Order Status: Completed Lab Status: Preliminary result Updated: 10/27/18 1027 Specimen: Body Fluid from Sputum, Expectorated Culture Culture in progress... 3+ Usual Respiratory Florencia 4+ Alpha-hemolytic gram positive cocci Comment: Isolating for additional information. Gram Stain Result 3+ White Blood Cells 2+ Epithelial cells 2+ Gram positive cocci 3+ Gram positive bacilli 1+ Gram negative rods Culture, Blood [[id number]] (Normal) Collected: 10/26/18 1309 Order Status: Completed Lab Status: Preliminary result Updated: 10/27/18 012 Specimen: Blood from Peripheral Blood Culture No growth: Monitored continually by instrument for 5 days Influenza A and B RNA, NAAT [[id number]] (Normal) Collected: 10/26/18 1309 Order Status: Completed [...] nore pi Prior to admission dialysis schedule: [facility] Vancomycin Dosing in HD patients: If [...] vanco and zosyn Patient: David Romero Jr. [facility] 458/[id number] Admit: 10/26/2018 12:36 RELEVANT ALLERGIES: no [...] Value Units Date/Time Respiratory pathogen panel, NAAT [[id number]] Collected: 10/27/18 1240 Order Status: Sent Lab Status: In process Updated: 10/27/18 1244 Specimen: Tissue from Nasopharynx Culture, MRSA [[id number]] Collected: 10/26/18 1700 Order Status: Completed Lab Status: Final result Updated: 10/27/18 0800 Specimen: Tissue from Nares Culture 3+ Staphylococcus aureus,Methicillin resistant (MRSA) Comment: *INFECTION PREVENTION ALERT - MRSA* CONTACT PRECAUTIONS REQUIRED. Legionella, Ag, EIA, Qual, Urine [[id number]] Order Status: Sent Lab Status: No result Specimen: Urine from Urine, Clean Catch Culture, Urine [[id number]] (Normal) Collected: 10/26/18 1404 Order Status: Completed Lab Status: Preliminary result Updated: 10/27/18 1138 Specimen: Urine from Urine, Clean Catch Culture No growth to date Culture, Blood [[id number]] (Normal) Collected: 10/26/18 1318 Order Status: Completed Lab Status: Preliminary result Updated: 10/27/18 0121 Specimen: Blood from Peripheral Blood Culture No growth: Monitored continually by instrument for 5 days Culture, Respiratory, Lower, Smear [[id number]] Collected: 10/26/18 1310 Order Status: Completed Lab Status: Preliminary result Updated: 10/27/18 1027 Specimen: Body Fluid from Sputum, Expectorated Culture Culture in progress... 3+ Usual Respiratory Florencia 4+ Alpha-hemolytic gram positive cocci Comment: Isolating for additional information. Gram Stain Result 3+ White Blood Cells 2+ Epithelial cells 2+ Gram positive cocci 3+ Gram positive bacilli 1+ Gram negative rods Culture, Blood [[id number]] (Normal) Collected: 10/26/18 1309 Order Status: Completed Lab Status: Preliminary result Updated: 10/27/18 0121 Specimen: Blood from Peripheral Blood Culture No growth: Monitored continually by instrument for 5 days Influenza A and B RNA, NAAT [[id number]] (Normal) Collected: 10/26/18 1309 Order Status: Completed [...] on that side. Agreed to call pts mandate retail service merchandiser Dr. Luo to get her recommendation. Dr. Luo nurse returned call stat ing that Dr. Luo says there is no contraindications to place the picc. Miky Jones MD - 10/27/2018 8:10 AM PD T [place], [place] HOSPITALIST PROGRESS NOTE Patient: David Kerr : 1945: Age: 73 y.o. MedRec: [id number] PCP: Gregory Drummond MD Admission date: 10/26/2018 [...] tunneled catheter Ischemic Cardiomyopathy with type 2 MO due to demand ischemia this admit Echo May 2018 EF 35-40 severe pulm HTN No chest pain and EKG is paced Prior CABG and AICD (replaced December 2017 [place]) Now follows with Dr Luo (comes to [facility] from [facility]) DM with ESRD Right arm AV [...] meycritical meysign) Miky Villarreal MD 10/27/2018 8:10 [facility] Subjective CC came to ER due to [...] Consult Hali Daniel MD Current Infusions: norepinephrine Hematology and anemia Recent Labs Lab 10/27/18 0339 10/26/18 1309 WBC 19.4* 13.9* HGB 12.3* 13.4* HCT 38.4* 40.2 PLT 147 166 NEUPCT 84.4* 90.0* MONPCT 6.2 5.5 Recent Labs Lab 10/26/18 1309 PROTIME 15.4* INR 1.2* No results for input(s): IRON, TIBC, PCTSAT, FERRITIN, TSH, [id number], FOLATE in the last 168 hours. Inflammatory [...] ABG No results for input(s): PHART, PO2ART, NWQ0TZC, FRP7PIA, BEART, A6ZJOOBM in the last 168 h ours. No results for input(s): SPECSOURCE, PHPOCB, PCO2, PO2, HCO3, TCO2, BEART, BABW7XCV in the last 168 hours. Drug of [...] Procedure Component Value Units Date/Time Culture, MRSA [[id number]] Collected: 10/26/18 1700 Order Status: Completed Lab Status: Final result Updated: 10/27/18 0800 Specimen: Tissue from Nares Culture 3+ Staphylococcus aureus,Methicillin resistant (MRSA) Comment: *INFECTION PREVENTION ALERT - MRSA* CONTACT PRECAUTIONS REQUIRED. Respiratory pathogen panel, NAAT [[id number]] Order Status: Sent Lab Status: No result Specimen: Tissue from Nasopharynx Legionella, Ag, EIA, Qual, Urine [[id number]] Order Status: Sent Lab Status: No result Specimen: Urine from Urine, Clean Catch Culture, Urine [[id number]] Collected: 10/26/18 1404 Order Status: Sent Lab Status: In process Updated: 10/26/18 1430 Specimen: Urine from Urine, Clean Catch Culture, Blood [[id number]] (Normal) Collected: 10/26/18 1318 Order Status: Completed Lab Status: Preliminary result Updated: 10/27/18 0121 Specimen: Blood from Peripheral Blood Culture No growth: Monitored continually by instrument for 5 days Culture, Respiratory, Lower, Smear [[id number]] Collected: 10/26/18 1310 Order Status: Sent Lab Status: In process Updated: 10/26/18 1315 Specimen: Body Fluid from Sputum, Expectorated Culture, Blood [[id number]] (Normal) Collected: 10/26/18 1309 Order Status: Completed Lab Status: Preliminary result Updated: 10/27/18 0121 Specimen: Blood from Peripheral Blood Culture No growth: Monitored continually by instrument for 5 days Influenza A and B RNA, NAAT [[id number]] (Normal) Collected: 10/26/18 1309 Order Status: Completed Lab Status: Final result Updated: 10/26/18 1351 Specimen: Tissue from Nares, Left Influenza A PCR Negative Influenza B PCR Negative Radiology results (more choices using dot risresults) Ct Chest Wo Contrast Result Date: 10/26/2018 CT CHEST WO CONTRAST 10/26/2018 2:58 PM HISTORY: hypoxia. COMPARISON: 10/26/2018 chest x-ray MA OTOCOL: Axial images of the chest were [...] this chart may have been created with [employer] voice recognition software. Occasi onal wrong-word or sound-alike substitutions may have occurred due to the inherent al itations of voice recognition software. Please read the chart carefully and recognize, using context, where these substitutions have occurred Wing Bo PharmD - 10/26/2018 7:31 PM PDT VANCOMYCIN PER PHARMACY PROTOCOL: AMS/Drug Name - vanco and zosyn Patient: David Romero Jr. [facility] 458/[id number] Admit: 10/26/2018 12:36 RELEVANT ALLERGIES: no [...] Procedure Component Value Units Date/Time Culture, MRSA [[id number]] Collected: 10/26/18 1700 Order Status: Sent Lab Status: In process Updated: 10/26/18 1723 Specimen: Tissue from Nares Respiratory pathogen panel, NAAT [[id number]] Order Status: Sent Lab Status: No result Specimen: Tissue from Nasopharynx Legionella, Ag, EIA, Qual, Urine [[id number]] Order Status: Sent Lab Status: No result Specimen: Urine from Urine, Clean Catch Culture, Urine [[id number]] Collected: 10/26/18 1404 Order Status: Sent Lab Status: In process Updated: 10/26/18 1430 Specimen: Urine from Urine, Clean Catch Culture, Blood [[id number]] Collected: 10/26/18 1318 Order Status: Sent Lab Status: In process Updated: 10/26/18 1320 Specimen: Blood from Peripheral Blood Culture, Respiratory, Lower, Smear [[id number]] Collected: 10/26/18 1310 Order Status: Sent Lab Status: In process Updated: 10/26/18 1315 Specimen: Body Fluid from Sputum, Expectorated Culture, Blood [[id number]] Collected: 10/26/18 1309 Order Status: Sent Lab Status: In process Updated: 10/26/18 1314 Specimen: Blood from Peripheral Blood Influenza A and B RNA, NAAT [[id number]] (Normal) Collected: 10/26/18 1309 Order Status: Completed [...] 2018 | Visit | | DO Rolan [address] [place] [address] | | | | | | [address] | | | | | | [place] | | | | | | [address] | | | | | | | | +--------+ + + + + | 09/25/ | Office | Cardiology | Sheldon Spence | | | 2019 | Visit | | MD [address] | | | | | | [facility] | | | | | | [place] | | | | | | [phone] | | | | | | | [...] | | | | | [place], [place] | | | | | | [address] | | | | | | | [...] + | [facility] | [address] | [place] | [phone] | | [facility] | | [address] | | | - LABORATORY | | [...] ST. | [address] | [place], [place] | [phone] | | [facility] | | [address] | | | - LABORATORY | | [...] + + | Performing | Address | City/State/[facility] | Phone Number | | Organization | | | | + + + + + | [facility] | [address] | [place] | [phone] | | [facility] | | [address] | | | - LABORATORY | | [...] + | [facility] | [address] | [place] | [phone] | | [facility] | | [address] | | | - LABORATORY | | [...] mL/min/1.73m2 | [facility] | | | [place] | | | MEDICAL | | | [...] [address] | [place] | [phone] | | [facility] | | [address] | | | - LABORATORY | | [...] | | | | g/dL | [facility] | | | | | | MEDICAL [...] [address] | [place] | [phone] | | [facility] | | [address] | | | - LABORATORY | | [...] [address] | [place] | [phone] | | [facility] | | [address] | | | - LABORATORY | | [...] [address] | [place] | [phone] | | [facility] | | [address] | | | - LABORATORY | | [...] + | [facility] [facility] | [address] | [place] | [phone] | | [facility] | | [address] | | | - LABORATORY | | [...] | | | | | | n [place] | | | | | + +--------+ [...] [address] | [place] | [phone] | | [facility] | | [address] | | | - LABORATORY | | [...] [address] | [place] | [phone] | | [facility] | | [address] | | | - LABORATORY | | [...] [address] | [place] | [phone] | | [facility] | | [address] | | | - LABORATORY | | [...] [address] | [place] | [phone] | | [facility] | | [address] | | | - LABORATORY | | [...] mL/min/1.73m2 | [facility] | | | [place] | | | MEDICAL | | | [...] | ine Ratio | | | [facility] | | | | | [...] [address] | [place] | [phone] | | [facility] | | [address] | | | - LABORATORY | | [...] [address] | [place] | [phone] | | [facility] | | [address] | | | - LABORATORY | | [...] ST. | [address] | [place], [place] | [phone] | | [facility] | | [address] | | | - LABORATORY | | [...] ST. | [address] | [place], [place] | [phone] | | [facility] | | [address] | | | - LABORATORY | | [...] [address] | [place] | [phone] | | [facility] | | [address] | | | - LABORATORY | | [...] + | [facility] | [address] | [place] | [phone] | | [facility] | | [address] | | | - LABORATORY | | [...] mL/min/1.73m2 | [facility] | | | [place] | | | MEDICAL | | | [...] + | [facility] | [address] | [place] | [phone] | | [facility] | | [address] | | | - LABORATORY | | [...] + | [facility] | [address] | [place] | [phone] | | [facility] | | [address] | | | - LABORATORY | | [...] + | [facility] | [address] | [place] | [phone] | | [facility] | | [address] | | | - LABORATORY | | [...] ST. | [address] | [place] | [phone] | | [facility] | | [address] | | | - LABORATORY | | [...] [address] | [place] | [phone] | | [facility] | | [address] | | | - LABORATORY | | [...] [address] | [place] | [phone] | | [facility] | | [address] | | | - LABORATORY | | [...] + | [facility] | [address] | [place] | [phone] | | [facility] | | [address] | | | - LABORATORY | | [...] + | [facility] | [address] | [place] | [phone] | | [facility] | | [address] | | | - LABORATORY | | [...] [address] | [place] | [phone] | | [facility] | | [address] | | | - LABORATORY | | [...] [address] | [place] | [phone] | | [facility] | | [address] | | | - LABORATORY | | [...] | | | | | | [facility] | | [...] mL/min/1.73m2 | [facility] | | | [place] | | | MEDICAL | | | [...] ST. | [address] | [place] | [phone] | | [facility] | | [address] | | | - LABORATORY | | [...] [address] | [place] | [phone] | | [facility] | | [address] | | | - LABORATORY | | [...] [address] | [place] | [phone] | | [facility] | | [address] | | | - LABORATORY | | [...] [address] | [place] | [phone] | | [facility] | | [address] | | | - LABORATORY | | [...] [address] | [place] | [phone] | | [facility] | | [address] | | | - LABORATORY | | [...] [address] | [place] | [phone] | | [facility] | | [address] | | | - LABORATORY | | [...] (H) | 4.0 - 11.0 K/uL | [facility] | | | | [facility] | | | | | | MEDICAL | | | | | | CENTER - | | | | | | LABORATORY | | + + + + + + | RBC | 3.59 (L) | 4.30 - 5.70 | [facility] | | | | | M/uL | [facility] | | | | | | [...] [address] | [place] | [phone] | | [facility] | | [address] | | | - LABORATORY | | [...] [address] | [place] | [phone] | | [facility] | | [address] | | | - LABORATORY | | [...] mL/min/1.73m2 | [facility] | | | [place] | | | MEDICAL | | | [...] [address] | [place] | [phone] | | [facility] | | [address] | | | - LABORATORY | | [...] + | [facility] | [address] | [place] | [phone] | | [facility] | | [address] | | | - LABORATORY | | [...] + | [facility] | [address] | [place] | [phone] | | [facility] | | [address] | | | - LABORATORY | | [...] [address] | [place] | [phone] | | [facility] | | [address] | | | - LABORATORY | | [...] + | [facility] | [address] | [place] | [phone] | | [facility] | | [address] | | | - LABORATORY | | [...] [address] | [place] | [phone] | | [facility] | | [address] | | | - LABORATORY | | [...] + + | Performed at: 01 - [facility] [address], | REFERENCE LAB | | [place], [place] [id number] Multisensor Intelligence Officer: Salazar Ocampo MD, Phone: | [facility] | | [phone] | | + + + + + + + + | Performing | Address | City/State/Zipcode | Phone Number | | Organization | | | | + + + + + | REFERENCE LAB | [address] | [place] [address] | [phone] | | [facility] | Drive [facility] | | | + + + + [...] | REFERENCE | | | | of Filipino Pathologists | | LAB [facility] | | | | standards require a | | - [facility] | | | | culture to beperformed | | | | | | on CSF specimens | | | | | | submitted for bacterial | | | | | | antigen testing.(CAP | | | | | | [id number]) Urine | | | | | | specimens will not be | | | | | | cultured. | | | | + + + + + + + + | Specimen | + + | Urine | + + + + + | Narrative | Performed At | + + + | Performed at: 01 - [facility] [address] [facility], | REFERENCE LAB | | [place], [place] [id number] Multisensor Intelligence Officer: Judy Tovar MD, Phone: | [facility] [place] | | [phone] | | + + + + + + + + | Performing | Address | City/State/Zipcode | Phone Number | | Organization | | | | + + + + + | REFERENCE LAB | [address] | [place] [address] | [phone] | | [facility] | Drive [...] | heart. Dictated and Signed by: Sheldon Gatcia MD | | | Electronically signed: 10/27/2018 [...] | | za 1 | | | [facility] | | [...] [address] | [place] | [phone] | | [facility] | | [address] | | | - LABORATORY | | [...] [address] | [place] | [phone] | | [facility] | | [address] | | | - LABORATORY | | [...] + | [facility] | [address] | [place] | [phone] | | [facility] | | [address] | | | - LABORATORY | | [...] [address] | [place] | [phone] | | [facility] | | [address] | | | - LABORATORY | | [...] [address] | [place] | [phone] | | [facility] | | [address] | | | - LABORATORY | | [...] mL/min/1.73m2 | [facility] | | | [place] | | | MEDICAL | | | [...] ST. | [address] | [place], [place] | [phone] | | [facility] | | [address] | | | - LABORATORY | | [...] [address] | [place] | [phone] | | [facility] | | [address] | | | - LABORATORY | | [...] + | [facility] | [address] | [place] | [phone] | | [facility] | | [address] | | | - LABORATORY | | [...] ST. | [address] | [place], [place] | [phone] | | [facility] | | [address] | | | - LABORATORY | | | | + + + + + Troponin I (10/26/2018 7:01 PM PDT) + + + + + + | Component | Value | Ref Range | Performed | Pathologist | | | | | At | Signature | + + + + + + | Troponin I | 0.38 (H) | <0.06 ng/mL | [facility] | | | | | | ST. [...] [address] | [place] | [phone] | | [facility] | | [address] | | | - LABORATORY | | [...] + | [facility] | [address] | [place] | [phone] | | [facility] | | [address] | | | - LABORATORY | | [...] + | [facility] | [address] | [place] | [phone] | | [facility] | | [address] | | | - LABORATORY | | [...] + | [facility] | [address] | [place] | [phone] | | [facility] | | [address] | | | - LABORATORY | | [...] - 1.030 | [facility] | | | [place] | | | [facility] | | [...] [address] | [place] | [phone] | | [facility] | | [address] | | | - LABORATORY | | [...] [address] | [place] | [phone] | | [facility] | | [address] | | | - LABORATORY | | [...] [address] | [place] | [phone] | | [facility] | | [address] | | | - LABORATORY | | [...] [address] | [place] | [phone] | | [facility] | | [address] | | | - LABORATORY | | [...] + | [facility] | [address] | [place] | [phone] | | [facility] | | [address] | | | - LABORATORY | | [...] [address] | [place] | [phone] | | [facility] | | [address] | | | - LABORATORY | | [...] + | [facility] | [address] | [place] | [phone] | | [facility] | | [address] | | | - LABORATORY | | [...] [address] | [place] | [phone] | | [facility] | | [address] | | | - LABORATORY | | [...] [address] | [place] | [phone] | | [facility] | | [address] | | | - LABORATORY | | [...] [address] | [place] | [phone] | | [facility] | | [address] | | | - LABORATORY | | [...] mL/min/1.73m2 | [facility] | | | [facility] | | | MEDICAL | | | [...] ST. | [address] | [place], [place] | [phone] | | [facility] | | [address] | | | - LABORATORY | | [...] + | [facility] | [address] | [place] | [phone] | | [facility] | | [address] | | | - LABORATORY | | [...] | | | | DANETTE CAICEDO MD ([id number]) | | | | | | on [...] ESRD (end stage renal disease) on dialysis ([facility]) End stage renal disease | + + | Ischemic cardiomyopathy Other specified forms of chronic ischemic heart disease | + + | ESRD (end stage renal disease) ([facility]) End stage renal disease | + + | Coronary artery disease, angina presence unspecified, unspecified vessel or lesion | | type, unspecified whether [place] or transplanted heart | + + | Non-insulin dependent type 2 diabetes mellitus ([facility]) Type II or unspecified type | | [...] | | | | Nebulization, RT Once, [facility] 10/26/18 | | PM PDT | [...] | | | | | modification) on [facility] 10/28/18 at | | | | | [...] | | | | | | | [facility] 10/26/18 at 1405, For 1 dose, [...] | | | | | dose on [facility] 10/26/18 at 2100 | | | [...] | | | | | | | 3072-7174 Use NIGHT DOSE for | | | | | | | doses scheduled: HS, 3AM, | | | | | | | Nighttime 8694-8545, | | | | | | + [...] 10:52 | | | | | Starting [facility] 10/26/18 at 1657 | | PM [...] AM PDT | | | | | [facility] 10/26/18 at 1715, Indication: | | [...] | | | | | Hours, ONCE, [facility] 10/26/18 at 1930, | | | [...] | | | | First dose on [facility] 10/26/18 at 2330, | | | [...] | | | | 90 Minutes, ONCE, [facility] 10/26/18 at | | | | [...]
--- OUTSIDE RECORDS SUMMARY | ~2019-07-14 | XMS | Encounter Summary ---
Demographics + + + | Address | [address] | | | [place] [address] | + + + | Home Phone [...] + | Lula Kerr | ECON | [address] | | | | | [place] | | | | | [address] | | + + + + + Care Team Providers + +------+ + | Care Joy Loading Machine Operator Name | Role | Phone [...] | | | | CLINIC [address] | [place]CCONNELL | (Primary Dx); ESRD | | | | [place], [place] | [place] [address] | (end stage renal | | | | [address] | [phone] | disease) ([facility]); | | | | [phone] | | Chronic | | | | [...] | Visit | | DO Rolan [address] | | | | | | [address] | | | | | | [place] | | | | | | [address] | | | | | | | | +--------+ + + + + | 09/25/ | Office | Cardiology | Sheldon Spence | | | 2019 | Visit | | MD [address] | | | | | | [place] | | | | | | [place] | | | | | | [address] | | | | | | | [...] [place] | | | | | | [address] | | | | | | | [...] + | [facility] | [address] | [place] | [phone] | | [facility] | | [address] | | | - LABORATORY | | [...] [address] | [place] | [phone] | | [facility] | | [address] | | | - LABORATORY | | [...] + | [facility] | [address] | [place] | [phone] | | [facility] | | [address] | | | - LABORATORY | | [...] [address] | [place] | [phone] | | [facility] | | [address] | | | - LABORATORY | | [...] mL/min/1.73m2 | [facility] | | | [facility] | RATE,ESTIMATED | | MEDICAL | | | | mL/min/1.13w3Epyq than | | CENTER - | | [...] + | [facility] | [address] | [place] | [phone] | | [facility] | | [address] | | | - LABORATORY | | [...] | | | | DANETTE CAICEDO MD ([id number]) | | | | | | on [...]
--- OUTSIDE RECORDS SUMMARY | ~2019-07-14 | XMS | Encounter Summary ---
Demographics + + + | Address | [address] | | | [place] [address] | + + + | Home Phone | | + + + | Preferred Language | Unknown | + + + | Marital Status | | + + + | Shinto Affiliation | 1041 | + + + | Race | Unknown | + + + | Ethnic Group | Unknown | + + + Author + + + | Author | [facility] | | | and [place] | + + + | Organization | [facility] | | | and [place] | + + + | Address | Unknown | + + + | Phone | Unavailable | + + + Support + + + + + | Name | Relationship | Address | Phone | + + + + + | Lula Kerr | ECON | [address] | | | | | [place] | | | | | [address] | | + + + + + Care Team Providers + +------+ + | Care Technical Sales Manager Name | Role | Phone | + +------+ + PCP | Unavailable | + +------+ + Encounter Details +--------+ + + + + | Date | Type | Department | Care Team | Description | +--------+ + + + + | 03/01/ | Hospital | [facility] | | | | 2001 - | Encounter | [facility] | | | | | | [address] [place] | | | | 04/02/ | | [place] [address] | | | | 2002 | | [phone] | | | +--------+ + + + [...] 2019 | Visit | | DO Rolan [address] [place] [address] | | | | | | [address] | | | | | | [place] | | | | | | [address] | | | | | | | | +--------+ + + + + | 09/25/ | Office | Cardiology | Sheldon Spence | | | 2019 | Visit | | MD [address] | | | | | | [place] | | | | | | [place] | | | | | | [address] | | | | | | | [...] [place] | | | | | | [address] | | | | | | | | +--------+ + + + + documented as of this encounter Visit Diagnoses Not on filedocumented in this encounter"
--- OUTSIDE RECORDS SUMMARY | ~2019-07-14 | XMS | Encounter Summary ---
Demographics + + + | Address | [address] | | | [place] [address] | + + + | Home Phone | | + + + | Preferred Language | Unknown | + + + | Marital Status | | + + + | Anglican Affiliation | 1041 | + + + | Race | Unknown | + + + | Ethnic Group | Unknown | + + + Author + + + | Author | [facility] | | | and [place] | + + + | Organization | [facility] | | | and [place] | + + + | Address | Unknown | + + + | Phone | Unavailable | + + + Support + + + + + | Name | Relationship | Address | Phone | + + + + + | Lula Kerr | ECON | [address] | | | | | [place] | | | | | [address] | | + + + + + Care Team Providers + +------+ + | Care Public Area Supervisor Name | Role | Phone | [...] [address]infa [place] | | | | | [phone] | [place] [address] | | +--------+ + + + + [...] | Visit | | DO Rolan [address] | | | | | | [address] | | | | | | [place] | | | | | | [address] | | | | | | | | +--------+ + + + + | 09/25/ | Office | Cardiology | Sheldon Spence | | | 2019 | Visit | | [address] | | | | | | [place] | | | | | | [place] | | | | | | [address] | | | | | | | [...] [place] | | | | | | [address] | | | | | | | [...]
--- OUTSIDE RECORDS SUMMARY | ~2019-07-14 | XMS | Encounter Summary ---
Demographics + + + | Address | [address] | | | [place] [address] | + + + | Home Phone | | + + + | Preferred Language | Unknown | + + + | Marital Status | | + + + | Religion Affiliation | 1041 | + + + | Race | Unknown | + + + | Ethnic Group | Unknown | + + + Author + + + | Author | [facility] | | | and [place] | + + + | Organization | [facility] | | | and [place] | + + + | Address | Unknown | + + + | Phone | Unavailable | + + + Support + + + + + | Name | Relationship | Address | Phone | + + + + + | Lula Kerr | ECON | [address] | | | | | [place] | | | | | [address] | | + + + + + Care Team Providers + +------+ + | Care Color Matcher Name | Role | Phone | + [...] | | | | | Procedures | [place], [place] | [address] | | | | | DOS 07/06/19 | [address] [place] | [address] [place] | | | | | | [place], [place] | [place], [place] | | | | | | [address] | [address] Phone: | | | | | | Phone: | [phone] | | | | | | [phone] | Fax: | | | | | | Fax: | [phone] | | | | | | [phone] | | + + + + + [...] | | [address] | [place] | | | | | [place], [place] | [place] | | | | | [address] | [address] | | | | | [phone] | | | +--------+ + + + [...] | Visit | | DO Rolan [address] | | | | | | [address] | | | | | | [place] | | | | | | [address] | | | | | | | | +--------+ + + + + | 09/25/ | Office | Cardiology | Sheldon Spence | | | 2019 | Visit | | MD [address] | | | | | | [place] | | | | | | [place] | | | | | | [address] | | | | | | | [...] [place] | | | | | | [address] | | | | | | | [...]
--- OUTSIDE RECORDS SUMMARY | ~2019-07-14 | XMS | Encounter Summary ---
Demographics + + + | Address | [address] | | | [place] [address] | + + + | Home Phone [...] + | Lula Kerr | ECON | [address] | | | | | [place] | | | | | [address] | | + + + + + Care Team Providers + +------+ + | Care Digital Product Manager Name | Role | Phone | [...] NEPHROLOGY [address] | MD [address] | | | | | [address] | [address] [place] | | | | | [place], [place] | [place] [address] | | | | | [address] | [phone] | | | | | [phone] | | | +--------+ + + + [...] [address] | | | | | | [address] | | | | | | [place], [place] | | | | | | [address] | | | | | | | | +--------+ + + + + | 09/25/ | Office | Cardiology | [facility] Sp[facility] | | | 2019 | Visit | | [address] | | | | | | [address] | | | | | | [place] | | | | | | [address] | | | | | | | [...] [place] | | | | | | [address] | | | | | | | [...] +--------+ + + + | EXTERNAL LAB: [facility] | Routin | 06/06/2018 | | Results [...]
--- OUTSIDE RECORDS SUMMARY | ~2019-07-14 | XMS | Encounter Summary ---
Demographics + + + | Address | [address] | | | [place] [address] | + + + | Home Phone | | + + + | Preferred Language | Unknown | + + + | Marital Status | | + + + | Caodaism Affiliation | 1041 | + + + | Race | Unknown | + + + | Ethnic Group | Unknown | + + + Author + + + | Author | [facility] | | | and [place] | + + + | Organization | [facility] | | | and [place] | + + + | Address | Unknown | + + + | Phone | Unavailable | + + + Support + + + + + | Name | Relationship | Address | Phone | + + + + + | Lula Kerr | ECON | [address] | | | | | [place] | | | | | [address] | | + + + + + Care Team Providers + +------+ + | Care Hematology Nurse Name | Role | Phone | + +------+ + | Gregory Drummond MD | PCP | | + +------+ + Encounter Details +--------+ + + + + | Date | Type | Department | Care Team | Description | +--------+ + + + + | 10/14/ | Anesthesia | [facility] | Angelito Ramirez, | | | 2014 | Event | [facility] | [address] | | | | | [address] | [place] | | | | | [place] | [address] | | | | | [address] | | | | | | [phone] | | | +--------+ + + + + Anesthesia Record + + + + + | Procedure Name | Responsible | Anesthesia Start | Anesthesia Stop Time | | | Anesthesiologist | Time | | + + + + + | Right Cataract | Angelito Ramirez MD | 10/14/14914 | 10/14/14 1016 | | Extraction w/ IOL | | | | | Implant (Right Eye) | | | | + + + + + +----+---+ + + | Da | T | Event | Comment | | te | i | | | | | m | | | | | e | | | +----+---+ + + | 03 | 0 | An Checkout | Pre-use anesthesia machine/equipment checkout. | | /2 | 9 | | | | 3/ | 1 | | | | 20 | 4 | | | | 15 | | | | +----+---+ + + | | 0 | | | | | 9 | | | | | 1 | | | | | 5 | | | +----+---+ + + | | 0 | An Start | Reassessment prior to anesthesia induction/procedure. | | | 9 | | | | | 1 | | | | | 5 | | | +----+---+ + + | | 0 | AN | Per surgeon request | | | 9 | Antibiotic | | | | 1 | declined | | | | 8 | | | +----+---+ + + | | 0 | Preoxygenat | | | | 9 | ed | | | | 2 | | | | | 1 | | | +----+---+ + + | | 0 | An | | | | 9 | Induction | | | | 2 | | | | | 2 | | | +----+---+ + + | | 0 | An | Difficult mask. Did not attempt for long, but I would assume | | | 9 | Intubation | patient to be difficult mask going forward and there is a | | | 2 | | preponderance of excess neck tissue. LMA placed with good seal, | | | 3 | | although it seemed small for him (#4). Patient was able to | | | | | obstruct off the LMA in strict supine and flat position; see | | | | | later note from 0940. | +----+---+ + + | | 0 | AN Bite | | | | 9 | Block | | | | 2 | | | | | 5 | | | +----+---+ + + | | 0 | Quick Note | Great difficulty in positioning patient and maintaining airway | | | 9 | | patency. Despite LMA seal of ~48tbR5V, when positioned fully | | | 4 | | supine the patient obstructs to the point of not pulling | | | 0 | | reasonable tidal volume (even with pressure support). With | | | | | slight incline (~5-10 degrees), patient easily maintains Tidal | | | | | Volumes of >400 with PS/PEEP of 10/5. 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 On last | | | | | attempt to position before converting to GETA, taped shoulders | | | | | with traction to base of bed to prevent the neck from involuting | | | | | in such a fashion as to obstruct his airway. With PSVPro of | | | | | 12/5, able to pull TV b/w 250-300 with good waveform. Elected to | | | | | proceed. For any future procedures, would strongly consider | | | | | LMA #5 if LMA considered. Would consider ETT for any obligately | | | | | strict supine procedure. | +----+---+ + + | | 1 | an stop | | | | 0 | data | | | | 1 | | | | | 3 | | | +----+---+ + + | | 1 | Extubated | | | | 0 | Awake | | | | 1 | | | | | 3 | | | +----+---+ + + | | 1 | An Stop | Patient handed off to recovery nurse. | | | 1 | | | | | 6 | | | +----+---+ + + +------+ | Meds | +------+ + + + | Name | Total | + + + | fentaNYL | 50 mcg | + + + | lidocaine 2% (PF) | 90 mg | + + + | propofol | 150 mg | + + + | dexamethasone | 5 mg | + + + | ondansetron | 4 mg | + + + | phenylephrine | 200 mcg | + + + | vasopressin | 12 Units | + + + | lactated ringers (LR) infusion | 950 mL | + + + + + [...] | | +--------+ + + + | [READ | 10/14/14; 0810; healing within | 10/14/14 0810 by | 10/14/14 1315 by | | ONLY] | expectations; 10/14/14; 1315 | Lilia Arrington | Rowena Whitfield RN | | | | | | | Periph | | | | | eral | | | | | IV - | | | | | Single | | | | | Lumen | | | | | | | | | +--------+ + + + | Airway | Placement Date: 10/14/14; | 10/14/14922 by | 10/14/14 101 by | | | Placement Time: 922; Mask | Angelito Ramirez MD | Angelito Ramirez MD | | | Ventilation: Unable; Laryngoscope | | | | | Blade Size: 4; Attempts: 1; | | | | | Airway Type: laryngeal mask; Tube | | | | | Reference Point: secure and | | | | | patent; Trauma: none; Placement | | | | | Check: verified by capnography; | | | | | Placed By: Anesthesiologist; | | | | | Removal Date: 10/14/14; Removal | | | | | Time: 1013 | | | +--------+ + + + [...] 2018 | Visit | | DO Rolan [address] [place] [address] | | | | | | [address] | | | | | | [place] | | | | | | [address] | | | | | | | | +--------+ + + + + | 09/25/ | Office | Cardiology | Sheldon Spence | | | 2019 | Visit | | MD [address] | | | | | | [address] [address] | | | | | | [place] | | | | | | [address] | | | | | | | [...] [place] | | | | | | [address] | | | | | | | | +--------+ + + + + documented as of this encounter Visit Diagnoses Not on filedocumented in this encounter Administered Medications + +--------+ +------+------+------+ | Medication Order | MAR | Action | Dose | Rate | Site | | | Action | Date | | | | + +--------+ +------+------+------+ | dexamethasone (DECADRON) 10 | Given | 10/15/19 | 5 mg | | | | mg/mL injection Intravenous, | | 15 9:48 | | | | | PRN, Starting 10/14/14 at | | AM PDT | | | | | 0948, Anesthesia Intra-op | | | | | | + +--------+ +------+------+------+ +---+---+ | | | +---+---+ + +-------+ +--------+---+---+ | fentaNYL injection PRN, Pain, | Given | 10/15/19 | 50 mcg | | | | Starting Tue10/14/14 at 0918, | | 15 9:18 | | | | | Anesthesia Intra-op | | AM PDT | | | | + +-------+ +--------+---+---+ +---+---+ | | | +---+---+ + +-------+ +-------+---+---+ | lidocaine (PF) 2% injection | Given | 10/15/19 | 90 mg | | | | PRN, Starting Tue10/14/14 at | | 15 9:22 | | | | | 0922, Anesthesia Intra-op | | AM PDT | | | | + +-------+ +-------+---+---+ +---+---+ | | | +---+---+ + +-------+ +------+---+---+ | ondansetron (ZOFRAN) injection | Given | 10/15/19 | 4 mg | | | | PRN, Nausea, Vomiting, Starting | | 15 9:48 | | | | | 10/14/14 at 0948, Anesthesia | | AM PDT | | | | | Intra-op | | | | | | + +-------+ +------+---+---+ +---+---+ | | | +---+---+ + +-------+ +---------+---+---+ | phenylephrine (KELSEY-SYNEPHRINE) | Given | 10/15/19 | 200 mcg | | | | 0.1 mg/mL IV syringe PRN, | | 15 9:27 | | | | | Starting 10/14/14 at 0927, | | AM PDT | | | | | Anesthesia Intra-op | | | | | | + +-------+ +---------+---+---+ +---+---+ | | | +---+---+ + +-------+ +--------+---+---+ | propofol (DIPRIVAN) injection | Given | 10/15/19 | 150 mg | | | | PRN, Starting Tue10/14/14 at | | 15 9:22 | | | | | 0922, Anesthesia Intra-op | | AM PDT | | | | + +-------+ +--------+---+---+ +---+---+ | | | +---+---+ + +-------+ +---------+---+---+ | vasopressin (PITRESSIN) | Given | 10/15/19 | 4 Units | | | | injection Intravenous, PRN, | | 15 9:53 | | | | | Starting Tue10/14/14 at 0933, | | AM PDT | | | | | Anesthesia Intra-op | | | | | | + +-------+ +---------+---+---+ +-------+ +---------+---+---+ | Given | 10/15/19 | 4 Units | | | | | 15 9:43 | | | | | | AM PDT | | | | +-------+ +---------+---+---+ | Given | 10/15/19 | 4 Units | | | | | 15 9:33 | | | | | | AM PDT | | | | +-------+ +---------+---+---+ +---+---+ | | | +---+---+ documented in this encounter"
--- OUTSIDE RECORDS SUMMARY | ~2019-07-14 | XMS | Encounter Summary ---
Demographics + + + | Address | [address] | | | [place] [address] | + + + | Home Phone [...] + | Lula Kerr | ECON | [address] | | | | | [place] | | | | | [address] | | + + + + + Care Team Providers + +------+ + | Care Route Salesman Name | Role | Phone | + +------+ + | rGegory Drummond MD | PCP | | + +------+ + Encounter Details +--------+ + + + + | Date | Type | Department | Care Team | Description | +--------+ + + + + | 09/01/ | Episode | [facility] | Suzanne Reese RN | | | 2019 | Changes | SURGERY [address] | | | | | | [address] [place] | | | | | | [address] | | | | | | [phone] | | | +--------+ + + + [...] 2018 | Visit | | DO Rolan [address] [place] [address] | | | | | | [place], [...] [place] | | | | | | [address] | | | | | | | [...] [place] | | | | | | [address] | | | | | | | | +--------+ + + + + documented as of this encounter Visit Diagnoses Not on filedocumented in this encounter"
--- OUTSIDE RECORDS SUMMARY | ~2019-07-14 | XMS | Encounter Summary ---
Demographics + + + | Address | [address] | | | [place] [address] | + + + | Home Phone | | + + + | Preferred Language | Unknown | + + + | Marital Status | | + + + | Zoroastrian Affiliation | 1041 | + + + [...] + | Lula Kerr | ECON | [address] | | | | | [place] | | | | | [address] | | + + + + + Care Team Providers + +------+ + | Care Senior Technical Manager Name | Role | Phone | + +------+ + | Gregory Drummond MD | PCP | | + +------+ + Encounter Details +--------+---------+ + + + | Date | Type | Department | Care Team | Description | +--------+---------+ + + + | 12/17/ | Surgery | [facility] | Meredith Medina MD | EGD / COLONOSCOPY - | | 2016 | | MED CTR MP INTRA OP | [address] | bmi 44 - has | | | | [address] | [place], [place] | pacemaker | | | | [place], [place] | [address] | defibrilator | | | | [address] | [phone] | | | | | [phone] | | | +--------+---------+ + + + [...] 2018 | Visit | | DO Rolan [address] [place] [address] | | | | | | [address] | | | | | | [place] | | | | | | [address] | | | | | | | | +--------+ + + + + | 09/25/ | Office | Cardiology | Sheldon Spence | | | 2019 | Visit | | MD [address] | | | | | | [address] | | | | | | [place] | | | | | | [phone] | | | | | | | [...] [place] | | | | | | [address] | | | | | | | [...] [address] | [place] | [phone] | | [facility] | | [address] | | | - LABORATORY | | [...] | | | Fragments of hyperplastic polyp. IRG:[facility]:C2NR GROSS | | | DESCRIPTION: A. The [...] | dimension. Submitted intact in cassette (D1). tn:[facility]: | | | PERFORMING LABORATORY: Tissue processing and slide preparation were | | | performed by [facility], [address] [facility] | | | [place] [address] (Rug Dry Room Attendant: Delano Le D.O..; CLIA#: | | | [id number]). Professional interpretation was performed at [facility] | | | [address], [address], [place] [address] | | | (CLIA#: [id number]). Diagnostician: Davidson Cam MD | | | [...]
--- OUTSIDE RECORDS SUMMARY | ~2019-07-14 | XMS | Encounter Summary ---
Demographics + + + | Address | [address] | | | [place] [address] | + + + | Home Phone [...] + | Lula Kerr | ECON | [address] | | | | | [place] | | | | | [address] | | + + + + + Care Team Providers + +------+ + | Care Mechanic Welder Truck Driver Name | Role | Phone | + +------+ + PCP | Unavailable | + +------+ + Encounter Details +--------+ + + + + | Date | Type | Department | Care Team | Description | +--------+ + + + + | 05/04/ | Hospital | [facility] | Sharan Gaytan | | | 1999 | Encounter | MED CTR SLEEP | MD Chai [address] | | | | | CENTER [address] | [address] [place] | | | | | [place], [place] | [place] [address] | | | | | [address] | [phone] | | | | | [phone] | | | +--------+ + + + [...] | Visit | | DO Rolan [address] | | | | | | [address] | | | | | | [place] | | | | | | [address] | | | | | | | | +--------+ + + + + | 09/25/ | Office | Cardiology | Sheldon Spence | | | 2019 | Visit | | [address] | | | | | | [address] | | | | | | [place] | | | | | | [address] | | | | | | | [...] [place] | | | | | | [address] | | | | | | | | +--------+ + + + + documented as of this encounter Visit Diagnoses Not on filedocumented in this encounter"
--- OUTSIDE RECORDS SUMMARY | ~2019-07-14 | XMS | Encounter Summary ---
Demographics + + + | Address | [address] | | | [place] [address] | + + + | Home Phone | | + + + | Preferred Language | Unknown | + + + | Marital Status | | + + + | Church Affiliation | 1041 | + + + [...] + | Lula Kerr | ECON | [address] | | | | | [place] | | | | | [address] | | + + + + + Care Team Providers + +------+ + | Care Carcass Washer Name | Role | Phone | + [...] | | | | | disease) | [place] [address] | [address] | | | | | ([facility]) | [address] [place] | [place], | | | | | Procedures | [place], [place] | [place] [address] | | | | | 08/09??> | [address] | Phone: | | | | | PEND | Phone: | [phone] | | | | | MARY | [phone] | Fax: | | | | | REVIEW | Fax: | [phone] | | | | | | [phone] | | +--------+ + + + + + Encounter Details +--------+---------+ + + + | Date | Type | Department | Care Team | Description | +--------+---------+ + + + | 08/24/ | Office | [facility] | Silvina Alcantar, | ESRD (end stage | | 2019 | Visit | SURGERY [address] | MD Elton [address] | renal disease) (HCC) | | | | [place], [place] | [address] [place] | (Primary Dx) | | | | [address] | [place] [address] | | | | | [phone] | [phone] | | | | | | | | | | | | Amilcar Hampton I, | | | | | | , FACS [address] | | | | | | [place], [place] | | | | | | [phone] | | | | | | | [...] Same Day Surgery (corner [address]) at 1000 for your pre-anes thesia work up. On 09/05/18 check in at Same Day Surgery ([address] [place]) at 10:00am. Your surgery is called RIGHT [...] successful and comfortable surgery. Sign up for [facility] if you want easy access to your medical information online. You can: Review your medications, immunizations, allergies and medical history. View details of your past and upcoming appointments. Sign up for [facility] if you want easy access to your medical information online. Only you, your doctor and your health care team are permitted to view the information sent through [employer]. Through [facility] you can: ? Review your medications, immunizations, [...] different ways you can sign up for [facility]: ? The first way is to get online at: [email or web address] and sign up directly throug h the website prior to your appointment with us. You can call [phone] ([phone]) if you have any questions or need assistance. ? The second way is through the [facility] rosmery which can be accessed with any smart phone. Ju st go to your rosmery store and look up RadarChile. ? The third way is to do [...] ? Gregory Drummond MD Who is your Clinical Radiologist/Kidney Specialist ? Dr. Alcantar When was the [...] to notes patient was recently discharged from [facility] on 07/08/2018 where he was ad mitted on 06/26/2018 for severe sepsis with septic shock. Patient is does not ambulate without his walking. Reports leg pain when walking, he believe s the pain is due to his bilateral leg edema. States legs get tight and full and cause him p ain. CARDIAC: Prior [place], unsure of the date. He denies chest [...] and Signed by: Chet Cuevas MD at [facility] Impressions: 1. Hepatomegaly. 2. Cholelithiasis. [...] defibrilator ; Surgeon: Meredith forbes MD; Location: [facility] MEDICAL PROCEDURE UNIT pacemaker medtronic SHUNT PLACEMENT/INSERTION Right 07/03/2018 Procedure: INSERTION SHUNT HEMODIALYSIS W/ PERMACATH; Surgeon: Melba Wallace MD; L ocation: [facility] MAIN OR Allergies Allergen Reactions Morphine Other [...] PATIENT NAME : David Kerr Jr. EQUIPMENT: [employer] 4U M-Frogtek Bopo with 10-5 mHertz probe. INDICATIONS: Dialysis access [...] ASSESSMENT 1. ESRD (end stage renal disease) ([facility]) Case request: RIGHT arm AVF [...] | Visit | | DO Rolan [address] [place] [address] | | | | | | [address] | | | | | | [place] | | | | | | [address] | | | | | | | | +--------+ + + + + | 09/25/ | Office | Cardiology | Sheldon Spence | | | 2019 | Visit | | [address] | | | | | | [address] | | | | | | [place] | | | | | | [address] | | | | | | | [...] [place] | | | | | | [address] | | | | | | | | +--------+ + + + + documented as of this encounter Visit Diagnoses + + | Diagnosis | + + | ESRD (end stage renal disease) (HCC) - Primary End stage renal disease | + + documented in this encounter
--- OUTSIDE RECORDS SUMMARY | ~2019-07-14 | XMS | Encounter Summary ---
Demographics + + + | Address | [address] | | | [place] [address] | + + + | Home Phone | | + + + | Preferred Language | Unknown | + + + | Marital Status | | + + + | Judaism Affiliation | 1041 | + + + [...] + | Lula Kerr | ECON | [address] | | | | | [place] | | | | | [address] | | + + + + + Care Team Providers + +------+ + | Care Folder Tier Name | Role | Phone | + [...] | | | | | [address] | [address] | | | | | [place], [place] | [place] [address] | | | | | [address] | [phone] | | | | | [phone] | | | +--------+---------+ + + + [...] Discharge Instructions Instructions [facility] Arterio-Venous Fistula 1. Keep [...] You can't be awakened Date Last Reviewed: 05/11/201619990028-1247 [employer]. [address] [place] [address]. All righ ts reserved. This information is [...] | Visit | | DO Rolan [address] | | | | | | [address] | | | | | | [place] | | | | | | [address] | | | | | | | | +--------+ + + + + | 09/25/ | Office | Cardiology | Sheldon Spence | | | 2019 | Visit | | [address] | | | | | | [address] | | | | | | [place] | | | | | | [address] | | | | | | | [...] [place] | | | | | | [address] | | | | | | | [...] mL/min/1.73m2 | [facility] | | | [facility] | RATE,ESTIMATED | | MEDICAL | | | | mL/min/1.74p4Vumi than | | CENTER - | | [...] ST. | [address] | [place] | [phone] | | [facility] | | [address] | | | - LABORATORY | | [...] | | | Site | | Starting [facility] 09/05/18 at 1701, | | PM PST [...]
--- OUTSIDE RECORDS SUMMARY | ~2019-07-14 | XMS | Encounter Summary ---
Demographics + + + | Address | [address] | | | [place] [address] | + + + | Home Phone [...] + | Lula Kerr | ECON | [address] | | | | | [place] | | | | | [address] | | + + + + + Care Team Providers + +------+ + | Care Shake Packer Name | Role | Phone | + +------+ + | Gregory Drummond MD | PCP | | + +------+ + Encounter Details +--------+ + + + + | Date | Type | Department | Care Team | Description | +--------+ + + + + | 01/17/ | Abstract | [facility] | Provider, | Arteriosclerotic | | 2019 | | SURGERY [address] | MD [address] | cardiovascular | | | | ST [place], [place] | [address] | disease; Dialysis | | | | [address] | [place] [address] | patient (HCC); | | | | [phone] | | Pulmonary | | | | [...] of this encounter Progress Notes Sue Bowers, Aircraft Load Controller - 08/10/2018 2:17 PM PSTCT Abdomen without on 2017 at [facility] Impressions: 1. Hepatomegaly. 2. Cholelithiasis. 3. [...] 2018 | Visit | | DO Rolan [address] [place] [address] | | | | | | [address] | | | | | | [place] | | | | | | [id number] | | | | | | | | +--------+ + + + + | 09/25/ | Office | Cardiology | Sheldon Spence | | | 2019 | Visit | | MD [address] | | | | | | [facility] | | | | | | [place] | | | | | | [phone] | | | | | | | [...] | | | | | [address] [place], [place] | | | | | | [address] | | | | | | | [...]
--- OUTSIDE RECORDS SUMMARY | ~2019-07-14 | XMS | Encounter Summary ---
Demographics + + + | Address | [address] | | | [place] [address] | + + + | Home Phone | | + + + | Preferred Language | Unknown | + + + | Marital Status | | + + + | Buddhism Affiliation | 1041 | + + + | Race | Unknown | + + + | Ethnic Group | Unknown | + + + Author + + + | Author | [facility] | | | and [place] | + + + | Organization | [facility] | | | and [place] | + + + | Address | Unknown | + + + | Phone | Unavailable | + + + Support + + + + + | Name | Relationship | Address | Phone | + + + + + | Lula Kerr | ECON | [address] | | | | | [place] | | | | | [address] | | + + + + + Care Team Providers + +------+ + | Care International Controller Name | Role | Phone | + [...] | | | | | [place] [address] | [address] | | | | | [phone] | | | +--------+ + + + [...] | Visit | | DO Rolan [address] | | | | | | [address] | | | | | | [place] | | | | | | [address] | | | | | | | | +--------+ + + + + | 09/25/ | Office | Cardiology | Sheldon Spence | | | 2019 | Visit | | [address] | | | | | | [address] | | | | | | [place] | | | | | | [address] | | | | | | | [...] [place] | | | | | | [address] | | | | | | | | +--------+ + + + + documented as of this encounter Visit Diagnoses Not on filedocumented in this encounter"
--- OUTSIDE RECORDS SUMMARY | ~2019-07-14 | XMS | Encounter Summary ---
Demographics + + + | Address | [address] | | | [place] [address] | + + + | Home Phone | | + + + | Preferred Language | Unknown | + + + | Marital Status | | + + + | Samaritan Affiliation | 1041 | + + + | Race | Unknown | + + + | Ethnic Group | Unknown | + + + Author + + + | Author | [facility] | | | and [place] | + + + | Organization | [facility] | | | and [place] | + + + | Address | Unknown | + + + | Phone | Unavailable | + + + Support + + + + + | Name | Relationship | Address | Phone | + + + + + | Lula Kerr | ECON | [address] | | | | | [place] | | | | | [address] | | + + + + + Care Team Providers + +------+ + | Care Search Engine Optimizer Name | Role | Phone | + +------+ + PCP | Unavailable | + +------+ + Encounter Details +--------+ + + + + | Date | Type | Department | Care Team | Description | +--------+ + + + + | 09/22/ | Hospital | [facility] | Gregory Drummond MD | | | 2010 | Encounter | MED CTR XRAY [address] | [address] | | | | | [place] | [place], [place] | | | | | [place] [address] | [address] | | | | | [phone] | [phone] | | | | | | | [...] | 07/16/ | Off-Site | Nephrology | Stroemel, Maty | | | 2018 | Visit | | DO [address] | | | | | | [address] | | | | | | [place] | | | | | | [address] | | | | | | | | +--------+ + + + + | 09/25/ | Office | Cardiology | Sheldon Spence | | | 2019 | Visit | | MD [address] | | | | | | [place] | | | | | | [place] | | | | | | [address] | | | | | | | [...] [place] | | | | | | [address] | | | | | | | | +--------+ + + + + documented as of this encounter Procedures + +--------+ + + + | Procedure Name | Priori | Date/Time | Associated Diagnosis | Comments | | | ty | | | | + +--------+ + + + | ECHO COMPLETE | | 09/22/2010 | | Results for this | | | | 10:48 AM | | procedure are in the | | | | PST | | results section. | + +--------+ + + + | ECHO COMPLETE | | 09/22/2010 | | Results for this | | | | 10:48 AM | | procedure are in the | | | | PST | | results section. | + +--------+ + + + documented in this encounter Results ECHO Complete (09/22/2010 10:48 AM PST) + + | Specimen | + + | | + + + + + | Narrative | Performed At | + + + | [facility] Diagnostic Imaging Department | [facility] | | [address] [facility] | [facility] | | ECHOCARDIOGRAPHY, 09/22/2010 | [facility] | | INDICATIONS FOR PROCEDURE: CARDIOMYOPATHY / CONGESTIVE HEART | | | FAILURE. TECHNICAL DATA: The quality of the study is | | | adequate. This is a 2-D echo / M- mode / Doppler / color Doppler | | | study. FINDINGS: Left atrial size is moderately dilated. Left | | | ventricular size is mildly dilated with normal wall thickness. | | | There is severe global hypokinesis of the left ventricle. LVEF | | | is 30%. Aortic root is mildly dilated. Right atrial size is | | | moderately dilated. Right ventricular size is mildly dilated | | | with normal wall thickness and a mildly decreased right ventricular | | | systolic function. There is a pacemaker lead in the right | | | ventricle. Pericardium is normal. The pulmonary artery is | | | normal. Aortic valve is trileaflet and opens normally. Mitral | | | valve is mildly thickened with normal opening. Pulmonic valve is | | | normal. Tricuspid valve is normal. IVC is normal. | | | IMPRESSION: 1. FOUR-CHAMBER DILATATION. 2. MILD LEFT | | | VENTRICULAR DILATATION WITH NORMAL WALL THICKNESS. THERE IS SEVERE | | | GLOBAL HYPOKINESIS OF THE LEFT VENTRICLE. OVERALL LEFT | | | VENTRICULAR SYSTOLIC FUNCTION IS SEVERELY DECREASED. LVEF IS 30%. | | | 3. MILDLY DILATED RIGHT VENTRICULAR CAVITY WITH NORMAL WALL | | | THICKNESS AND MILDLY DECREASED RIGHT VENTRICULAR SYSTOLIC FUNCTION. | | | 4. MILD AORTIC ROOT DILATATION MEASURED AT 4.0 CM IN DIAMETER. | | | 5. PACEMAKER LEAD IN THE RIGHT VENTRICLE. 6. WHEN | | | COMPARED TO THE ECHOCRDIOGRAPHY ON 03/25/2004, THE LEFT VENTRICULAR | | | SYSTOLIC FUNCTION IS SIGNIFICANTLY REDUCED. Dictated | | | Date/Time: 09/22/2010 13:10 Transcribed Date/Time: 09/22/2010 | | | 16:03 Cable Installation Technician: <Electronically Signed by Rosanna | | | MD Isi [facility]> 09/23/10 0650 | | + + + + + | Procedure Note | + + | Marcus May Conversion - 03/15/2014 9:34 AM PDT [facility] | | Diagnostic Imaging Department | | [address] [facility], [place] | | | | | | | | ECHOCARDIOGRAPHY, 09/22/2010 | | | | INDICATIONS FOR PROCEDURE: CARDIOMYOPATHY / CONGESTIVE HEART FAILURE. | | | | TECHNICAL DATA: The quality of the study is adequate. This is a 2-D echo / M- | | mode / Doppler | | / color Doppler study. | | | | FINDINGS: Left atrial size is moderately dilated. Left ventricular size is | | mildly dilated with | | normal wall thickness. There is severe global hypokinesis of the left | | ventricle. LVEF is 30%. | | Aortic root is mildly dilated. Right atrial size is moderately dilated. Right | | ventricular size is mildly | | dilated with normal wall thickness and a mildly decreased right ventricular | | systolic function. There | | is a pacemaker lead in the right ventricle. Pericardium is normal. The | | pulmonary artery is normal. | | Aortic valve is trileaflet and opens normally. Mitral valve is mildly | | thickened with normal opening. | | Pulmonic valve is normal. Tricuspid valve is normal. IVC is normal. | | | | IMPRESSION: | | 1. FOUR-CHAMBER DILATATION. | | | | 2. MILD LEFT VENTRICULAR DILATATION WITH NORMAL WALL THICKNESS. THERE | | IS SEVERE GLOBAL HYPOKINESIS OF THE LEFT VENTRICLE. OVERALL LEFT | | VENTRICULAR SYSTOLIC FUNCTION IS SEVERELY DECREASED. LVEF IS 30%. | | | | 3. MILDLY DILATED RIGHT VENTRICULAR CAVITY WITH NORMAL WALL | | THICKNESS AND MILDLY DECREASED RIGHT VENTRICULAR SYSTOLIC FUNCTION. | | | | 4. MILD AORTIC ROOT DILATATION MEASURED AT 4.0 CM IN DIAMETER. | | | | 5. PACEMAKER LEAD IN THE RIGHT VENTRICLE. | | | | 6. WHEN COMPARED TO THE ECHOCRDIOGRAPHY ON 03/25/2004, THE LEFT | | VENTRICULAR SYSTOLIC FUNCTION IS SIGNIFICANTLY REDUCED. | | | | Dictated Date/Time: 09/22/2010 13:10 | | Transcribed Date/Time: 09/22/2010 16:03 | | Cable Installation Technician: | | <Electronically Signed by Rosanna Snowden MD [facility]> 09/23/10 0650 | + + + +---------+ + + | Performing | Address | City/State/Zipcode | Phone Number | | Organization | | | | + +---------+ + + | [place] | | | | | [facility] | | | | + +---------+ + + ECHO Complete (09/22/2010 10:48 AM PST) + + | Specimen | + + | | + + + + + | Narrative | Performed At | + + + | [facility] Diagnostic Imaging Department | [facility] | | [address] [facility] | [facility] | | ECHOCARDIOGRAPHY, 09/22/2010 | DIAG IMG | | INDICATIONS FOR PROCEDURE: CARDIOMYOPATHY / CONGESTIVE HEART | | | FAILURE. TECHNICAL DATA: The quality of the study is | | | adequate. This is a 2-D echo / M- mode / Doppler / color Doppler | | | study. FINDINGS: Left atrial size is moderately dilated. Left | | | ventricular size is mildly dilated with normal wall thickness. | | | There is severe global hypokinesis of the left ventricle. LVEF | | | is 30%. Aortic root is mildly dilated. Right atrial size is | | | moderately dilated. Right ventricular size is mildly dilated | | | with normal wall thickness and a mildly decreased right ventricular | | | systolic function. There is a pacemaker lead in the right | | | ventricle. Pericardium is normal. The pulmonary artery is | | | normal. Aortic valve is trileaflet and opens normally. Mitral | | | valve is mildly thickened with normal opening. Pulmonic valve is | | | normal. Tricuspid valve is normal. IVC is normal. | | | IMPRESSION: 1. FOUR-CHAMBER DILATATION. 2. MILD LEFT | | | VENTRICULAR DILATATION WITH NORMAL WALL THICKNESS. THERE IS SEVERE | | | GLOBAL HYPOKINESIS OF THE LEFT VENTRICLE. OVERALL LEFT | | | VENTRICULAR SYSTOLIC FUNCTION IS SEVERELY DECREASED. LVEF IS 30%. | | | 3. MILDLY DILATED RIGHT VENTRICULAR CAVITY WITH NORMAL WALL | | | THICKNESS AND MILDLY DECREASED RIGHT VENTRICULAR SYSTOLIC FUNCTION. | | | 4. MILD AORTIC ROOT DILATATION MEASURED AT 4.0 CM IN DIAMETER. | | | 5. PACEMAKER LEAD IN THE RIGHT VENTRICLE. 6. WHEN | | | COMPARED TO THE ECHOCRDIOGRAPHY ON 03/25/2004, THE LEFT VENTRICULAR | | | SYSTOLIC FUNCTION IS SIGNIFICANTLY REDUCED. Dictated | | | Date/Time: 09/22/2010 13:10 Transcribed Date/Time: 09/22/2010 | | | 16:03 Cable Installation Technician: <Electronically Signed by Rosanna | | | MD Isi [facility]> 09/23/10 0650 | | + + + + + | Procedure Note | + + | Marcus May - 09/27/2013 7:17 AM [facility] | | Diagnostic Imaging Department | | [address] [facility] | | | | | | | | ECHOCARDIOGRAPHY, 09/22/2010 | | | | INDICATIONS FOR PROCEDURE: CARDIOMYOPATHY / CONGESTIVE HEART FAILURE. | | | | TECHNICAL DATA: The quality of the study is adequate. This is a 2-D echo / M- | | mode / Doppler | | / color Doppler study. | | | | FINDINGS: Left atrial size is moderately dilated. Left ventricular size is | | mildly dilated with | | normal wall thickness. There is severe global hypokinesis of the left | | ventricle. LVEF is 30%. | | Aortic root is mildly dilated. Right atrial size is moderately dilated. Right | | ventricular size is mildly | | dilated with normal wall thickness and a mildly decreased right ventricular | | systolic function. There | | is a pacemaker lead in the right ventricle. Pericardium is normal. The | | pulmonary artery is normal. | | Aortic valve is trileaflet and opens normally. Mitral valve is mildly | | thickened with normal opening. | | Pulmonic valve is normal. Tricuspid valve is normal. IVC is normal. | | | | IMPRESSION: | | 1. FOUR-CHAMBER DILATATION. | | | | 2. MILD LEFT VENTRICULAR DILATATION WITH NORMAL WALL THICKNESS. THERE | | IS SEVERE GLOBAL HYPOKINESIS OF THE LEFT VENTRICLE. OVERALL LEFT | | VENTRICULAR SYSTOLIC FUNCTION IS SEVERELY DECREASED. LVEF IS 30%. | | | | 3. MILDLY DILATED RIGHT VENTRICULAR CAVITY WITH NORMAL WALL | | THICKNESS AND MILDLY DECREASED RIGHT VENTRICULAR SYSTOLIC FUNCTION. | | | | 4. MILD AORTIC ROOT DILATATION MEASURED AT 4.0 CM IN DIAMETER. | | | | 5. PACEMAKER LEAD IN THE RIGHT VENTRICLE. | | | | 6. WHEN COMPARED TO THE ECHOCRDIOGRAPHY ON 03/25/2004, THE LEFT | | VENTRICULAR SYSTOLIC FUNCTION IS SIGNIFICANTLY REDUCED. | | | | Dictated Date/Time: 09/22/2010 13:10 | | Transcribed Date/Time: 09/22/2010 16:03 | | Cable Installation Technician: | | <Electronically Signed by Rosanna Snowden MD [facility]> 09/23/10 0650 | + + + +---------+ + + | Performing | Address | City/State/Zipcode | Phone Number | | Organization | | | | + +---------+ + + | [place] | | | | | [facility] | | | | + +---------+ + + documented in this encounter Visit Diagnoses Not on filedocumented in this encounter"
--- OUTSIDE RECORDS SUMMARY | ~2019-07-14 | XMS | Encounter Summary ---
Demographics + + + | Address | [address] | | | [place] [address] | + + + | Home Phone | | + + + | Preferred Language | Unknown | + + + | Marital Status | | + + + | Religion Affiliation | 1041 | + + + | Race | Unknown | + + + | Ethnic Group | Unknown | + + + Author + + + | Author | [facility] | | | and [place] | + + + | Organization | [facility] | | | and [place] | + + + | Address | Unknown | + + + | Phone | Unavailable | + + + Support + + + + + | Name | Relationship | Address | Phone | + + + + + | Lula Kerr | ECON | [address] | | | | | [place] | | | | | [address] | | + + + + + Care Team Providers + +------+ + | Care Spring Fitter Helper Name | Role | Phone | + +------+ + PCP | Unavailable | + +------+ + Encounter Details +--------+ + + + + | Date | Type | Department | Care Team | Description | +--------+ + + + + | 01/31/ | Hospital | [facility] | | | | 2001 - | Encounter | MED CTR GENERIC IP | | | | | | CONV DEPT [address] | | | | 02/01/ | | [place], | | | | 2001 | | [place] [address] | | | | | | [phone] | | | +--------+ + + + [...] | Visit | | DO [address] | | | | | | [place], [address] | | | | | | [place] | | | | | | [address] | | | | | | | | +--------+ + + + + | 09/25/ | Office | Cardiology | Sheldon Spence | | | 2019 | Visit | | MD [address] | | | | | | [place] [address] | | | | | | [place] | | | | | | [phone] | | | | | | | [...] [place] | | | | | | [address] | | | | | | | | +--------+ + + + + documented as of this encounter Visit Diagnoses Not on filedocumented in this encounter"
--- OUTSIDE RECORDS SUMMARY | ~2019-07-14 | XMS | Encounter Summary ---
Demographics + + + | Address | [address] | | | [place] [address] | + + + | Home Phone [...] + | Lula Kerr | ECON | [address] | | | | | [place] | | | | | [address] | | + + + + + Care Team Providers + +------+ + | Care Dermatological Surgeon Name | Role | Phone | + [...] | | REGULAR | [address] | [place], [place] | | | | | | [place], [place] | [address] Phone: | | | | | | [phone] | [phone] | | | | | | Phone: | Fax: | | | | | | [phone] | [phone] | | | | | | Fax: | | | | | | | [phone] | | +--------+--------+ + + + + Encounter Details +--------+---------+ + + + | Date | Type | Department | Care Team | Description | +--------+---------+ + + + | 05/17/ | Office | [facility] | Natalie Luo DO | Ischemic | | 2019 | Visit | CARDIOLOGY [place] | [address] | cardiomyopathy | | | | [address] | [place], [place] | (Primary Dx); [place] | | | | [address] | [address] | (ventricular | | | | [place], [place] | | tachycardia) (HCC); | | | | [address] | | Left bundle branch | | | | [phone] | | block (LBBB); | | | [...] Luo DO - 05/17/2019 2:[address] [facility] Cardiology Cardiology Follow Up Note Reason for Consultation: heart failure Requesting Physician: Jaya Drummond History Obtained From: patient HISTORY OF PRESENT ILLNESS: Cardiac Problem List 1. Ischemic Cardiomyopathy - 09/22/10 TTE EF 30% - 06/17/18 TTE EF 35-40%, RVSP 80-85mmHg, mod-severe TR 2. History 3rd degree AV block - 02/20/2007 PPM placed - 12/25/2009 upgrade to Pump!tronic bi-v ICD - 01/12/18 generator change with Farmol generator 3. Coronary artery disease - [place] 1997: s/p thrombolytics/PCI - NSTEMI 11/23/09: severe 3 vessel CAD: serial 80-90% RCA stenosis, 80-90% LM with 99% ostial LAD and cx stenosis.LVEF 30%. - 4 vessel CABGS: 11/23/09 with IABP periop. 4. Atrial fibrillation - [id number] score 5 (Age, CHF, HTN, DMII, Vasc [...] The patient had a recent hospitalization To [facility] on 06/26/18 with pneumonia, septic shock, and HTN. He was initiated on hemodialysis as an inpatient. Right IJ tunneled catheters plac ed during that admission. He [place] [facility] on 07/08/18. 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 He had a hospitalization on 10/26/2018 where he was admitted at [facility] for pneumonia and was found to have an elevated troponin. Nuclear stress test at t hat time demonstrated a medium-sized reversible defect in the mid anterior distal and apical and anterior septal regions, ejection fraction was 36 percent. The patient was evaluated by Dr. Damian, who felt that there was no evidence of active ischemia. He recommended [facility] to follow the patient medically with consideration [...] at 01/12/18 device check. Patient lives in [place]. Dr Morse would like to see pt in May for f/u visit and dev ice check (hopefully before weather turns bad). Further device f/u via remote monitoring is okay per Dr Morse and Dr Delgado. Testing performed by: Sasha White, Generation Manager 02/15/18 12:58 IMPRESSION: 1. Normal ICD function. [...] bi-v ICD - 01/12/18 generator change with [place] [employer] generator 3. Coronary artery disease - [place] 1997: s/p thrombolytics/PCI - NSTEMI 11/23/09: severe 3 vessel CAD: serial 80-90% RCA stenosis, 80-90% LM with 99% ostial LAD and cx stenosis.LVEF 30%. - 4 vessel CABGS: 11/23/09 with IABP periop. 4. Chronic Atrial fibrillation - [id number] score 5 (Age, CHF, HTN, DMII, Vasc [...] | Visit | | DO [address]an [address] | | | | | | [place], [address] | | | | | | [place] | | | | | | [address] | | | | | | | | +--------+ + + + + | 09/25/ | Office | Cardiology | Sheldon Spence | | | 2019 | Visit | | MD [address] | | | | | | [place] | | | | | | [place] | | | | | | [address] | | | | | | | [...] [place] | | | | | | [address] | | | | | | | [...]
--- OUTSIDE RECORDS SUMMARY | ~2019-07-14 | XMS | Encounter Summary ---
Demographics + + + | Address | [address] | | | [place] [address] | + + + | Home Phone | | + + + | Preferred Language | Unknown | + + + | Marital Status | | + + + | Rastafarian Affiliation | 1041 | + + + | Race | Unknown | + + + | Ethnic Group | Unknown | + + + Author + + + | Author | [facility] | | | and [place] | + + + | Organization | [facility] | | | and [place] | + + + | Address | Unknown | + + + | Phone | Unavailable | + + + Support + + + + + | Name | Relationship | Address | Phone | + + + + + | Lula Kerr | ECON | [address] | | | | | [place] | | | | | [address] | | + + + + + Care Team Providers + +------+ + | Care Plan Checker Name | Role | Phone | + +------+ + | Gregory Drummond MD | PCP | | + +------+ + Encounter Details +--------+ + + + + | Date | Type | Department | Care Team | Description | +--------+ + + + + | 02/15/ | Orders Only | [facility] | Provider, | | | 2019 | | SYSTEM GENERIC OP | MD [address] | | | | | [address] | [place] | | | | | [address] [place], [place] | [place] [address] | | | | | [address] | | | | | | [phone] | | | +--------+ + + + [...] | Visit | | DO [address] | | | | | | [address] | | | | | | [place] | | | | | | [address] | | | | | | | | +--------+ + + + + | 09/25/ | Office | Cardiology | Sheldon Spence | | | 2019 | Visit | | MD [address] | | | | | | [place] | | | | | | [place] | | | | | | [address] | | | | | | | [...] [place] | | | | | | [address] | | | | | | | [...]
--- OUTSIDE RECORDS SUMMARY | ~2019-07-14 | XMS | Encounter Summary ---
Demographics + + + | Address | [address] | | | [place] [address] | + + + | Home Phone [...] + | Lula Kerr | ECON | [address] | | | | | [place] | | | | | [address] | | + + + + + Care Team Providers + +------+ + | Care Hand I Tube Bender Name | Role | Phone | + [...] [address] | | | | | [phone] | [place] [address] | | +--------+ + + + + [...] [place] | | | | | | [address] | | | | | | | | +--------+ + + + + | 09/25/ | Office | Cardiology | Sheldon Spence | | | 2019 | Visit | | [address] | | | | | | [place] | | | | | | [place] | | | | | | [address] | | | | | | | [...] [place] | | | | | | [address] | | | | | | | [...]
--- OUTSIDE RECORDS SUMMARY | ~2019-07-14 | XMS | Encounter Summary ---
Demographics + + + | Address | [address] | | | [place] [address] | + + + | Home Phone | | + + + | Preferred Language | Unknown | + + + | Marital Status | | + + + | Voodoo Affiliation | 1041 | + + + | Race | Unknown | + + + | Ethnic Group | Unknown | + + + Author + + + | Author | [facility] | | | and [place] | + + + | Organization | [facility] | | | and [place] | + + + | Address | Unknown | + + + | Phone | Unavailable | + + + Support + + + + + | Name | Relationship | Address | Phone | + + + + + | Lula Kerr | ECON | [address] | | | | | [place] | | | | | [address] | | + + + + + Care Team Providers + +------+ + | Care Casino Porter Name | Role | Phone | + [...] | Paraspinal | Erich, | [address] | | | | | mass | MD [address] | [place], | | | | | Fracture of | [address] | [place] | | | | | vertebra due | [address] [place] | [address] | | | | | to | [place] | Phone: | | | | | osteoporosis | [address] | [phone] | | | | | , initial | Phone: | Fax: | | | | | encounter | [phone] | [phone] | | | | | (HCC) | Fax: | | | | | | Procedures | [phone] | | | | | | IR Biopsy | | | | | | | Bone Deep | | | | | | | IR Biopsy | | | | | | | Muscle ID | | | | | | | CT GUIDANCE | | | | | | | NEEDLE | | | | | | | PLACEMENT | | | +--------+--------+ + + + + Encounter Details +--------+ + + + + | Date | Type | Department | Care Team | Description | +--------+ + + + + | 07/06/ | Hospital | [facility] | Paul Nielson | Paraspinal mass; | | 2019 | Encounter | MED CTR XRAY [address] | MD [place] | Fracture of vertebra | | | | [address] [place] | [address] [place] | due to | | | | [place] [address] | [place] [address] | osteoporosis, | | | | [phone] | [phone] | initial encounter | | | | | | ([facility]) | +--------+ + + + + Social [...] 2018 | Visit | | DO Rolan [address] [place] [address] | | | | | | [place], [address] | | | | | | [place] | | | | | | [address] | | | | | | | | +--------+ + + + + | 09/25/ | Office | Cardiology | Sheldon Spence | | | 2019 | Visit | | [address] | | | | | | [place] | | | | | | [place] | | | | | | [address] | | | | | | | [...] [place] | | | | | | [address] | | | | | | | [...]
--- OUTSIDE RECORDS SUMMARY | ~2019-07-14 | XMS | Encounter Summary ---
Demographics + + + | Address | [address] | | | [place] [address] | + + + | Home Phone | | + + + | Preferred Language | Unknown | + + + | Marital Status | | + + + | Hinduism Affiliation | 1041 | + + + | Race | Unknown | + + + | Ethnic Group | Unknown | + + + Author + + + | Author | [facility] | | | and [place] | + + + | Organization | [facility] | | | and [place] | + + + | Address | Unknown | + + + | Phone | Unavailable | + + + Support + + + + + | Name | Relationship | Address | Phone | + + + + + | Lula Kerr | ECON | [address] | | | | | [place] | | | | | [address] | | + + + + + Care Team Providers + +------+ + | Care Card Cleaner Name | Role | Phone | + +------+ + | Gregory Drummond MD | PCP | | + +------+ + Encounter Details +--------+ + + + + | Date | Type | Department | Care Team | Description | +--------+ + + + + | 07/04/ | Orders Only | [facility] | Paul Nielson | Paraspinal mass | | 2019 | | [address] | MD [place] | (Primary Dx); | | | | [address] | [address] [place] | Fracture of vertebra | | | | [place], [place] | [place] [address] | due to | | | | [address] | [phone] | osteoporosis, | | | | [phone] | | initial encounter | | | [...] 2018 | Visit | | DO Rolan [address] [place] [address] | | | | | | [address] | | | | | | [place] | | | | | | [address] | | | | | | | | +--------+ + + + + | 09/25/ | Office | Cardiology | Sheldon Spence | | | 2019 | Visit | | [address] | | | | | | [place] | | | | | | [place] | | | | | | [address] | | | | | | | [...] [place] | | | | | | [address] | | | | | | | [...]
--- OUTSIDE RECORDS SUMMARY | ~2019-07-14 | XMS | Encounter Summary ---
Demographics + + + | Address | [address] | | | [place] [address] | + + + | Home Phone | | + + + | Preferred Language | Unknown | + + + | Marital Status | | + + + | Presybeterian Affiliation | 1041 | + + + [...] + | Lula Kerr | ECON | [address] | | | | | [place] | | | | | [address] | | + + + + + Care Team Providers + +------+ + | Care Hotel Custodian Name | Role | Phone | + [...] | | | | [place] | [place] [address] | | | | | [address] | | | | | | [phone] | | | +--------+ + + + [...] Visit | | DO Rolan [address] | | | | | | [address] | | | | | | [place] | | | | | | [address] | | | | | | | | +--------+ + + + + | 09/25/ | Office | Cardiology | Sheldon Spence | | | 2019 | Visit | | [address] | | | | | | [address] | | | | | | [place] | | | | | | [address] | | | | | | | [...] [place] | | | | | | [address] | | | | | | | [...]
--- OUTSIDE RECORDS SUMMARY | ~2019-07-14 | XMS | Encounter Summary ---
Demographics + + + | Address | [address] | | | [place] [address] | + + + | Home Phone | | + + + | Preferred Language | Unknown | + + + | Marital Status | | + + + | Zoroastrianism Affiliation | 1041 | + + + [...] + | Lula Kerr | ECON | [address] | | | | | [place] | | | | | [address] | | + + + + + Care Team Providers + +------+ + | Care Skiving Machine Operator Name | Role | Phone [...] | | | | | ([facility]) BS | [address] | | | | | ICD 3 month | [address] | [address] | | | | | remote | [address] | [place], [place] | | | | | Procedures | [place], | [address] | | | | | REMOTE | [place] [address] | Phone: | | | | | DEVICE CHECK | Phone: | [phone] | | | | | | [phone] | Fax: | | | | | | Fax: | [phone] | | | | | | [phone] | | +--------+--------+ + + + + Encounter Details +--------+ + + + + | Date | Type | Department | Care Team | Description | +--------+ + + + + | 06/25/ | Procedure | [facility] | | [place] (ventricular | | 2019 | visit | CARDIOLOGY [place] | | tachycardia) ([facility]) | | | | [address] | | (Primary Dx); AICD | | | | [place], [place] | | (automatic | | | | [address] | | cardioverter/defibri | | | | [phone] | | llator) present ; | | [...] | Visit | | DO [address] | | | | | | [address] | | | | | | [place] | | | | | | [id number] | | | | | | | | +--------+ + + + + | 09/25/ | Office | Cardiology | Sheldon Spence | | | 2019 | Visit | | [address] | | | | | | [address] | | | | | | [place] | | | | | | [address] | | | | | | | [...] [place] | | | | | | [address] | | | | | | | [...] Drummond MD | | | : 1945MRN: [id number] Primary cardiology provider: None | | | Primary electrophysiology provider: Sangeetha Spence Device | | | sound engineer audio control: [employer] Device type: Biventricular Battery | | [...] reviewed by: Anat | | | Yuval customer service cashier [facility] | | | | | |INTERROGATION [...] | | |Testing reviewed by: Anat Barakat, customer service cashier [facility] | | | | | | [...]
--- OUTSIDE RECORDS SUMMARY | ~2019-07-14 | XMS | Encounter Summary ---
Demographics + + + | Address | [address] | | | [place] [address] | + + + | Home Phone | | + + + | Preferred Language | Unknown | + + + | Marital Status | | + + + | Denominational Affiliation | 1041 | + + + | Race | Unknown | + + + | Ethnic Group | Unknown | + + + Author + + + | Author | [facility] | | | and [place] | + + + | Organization | [facility] | | | and [place] | + + + | Address | Unknown | + + + | Phone | Unavailable | + + + Support + + + + + | Name | Relationship | Address | Phone | + + + + + | Lula Kerr | ECON | [address] | | | | | [place] | | | | | [address] | | + + + + + Care Team Providers + +------+ + | Care Card Grader Name | Role | Phone | + +------+ + | Gregory Drummond MD | PCP | | + +------+ + Encounter Details +--------+ + + + + | Date | Type | Department | Care Team | Description | +--------+ + + + + | 05/23/ | Hospital | [facility] | Velasquez Hayes MD | Complication of | | 2019 | Encounter | MED CTR IR INTRA OP | [address] | arteriovenous | | | | [address] | [place], [place] | dialysis fistula, | | | | [place], [place] | [address] | initial encounter; | | | | [address] | | ESRD (end stage | | | | [phone] | | renal disease) on | | | | | | dialysis (HCC) | +--------+ + + + + [...] + + + | Blood Pressure | 110/62 | 12/14/2018 4:15 PM | | | | | PDT | | + + + + + | Pulse | 59 | 12/14/2018 4:25 PM | | | | | PDT | | + + + + + | Temperature | 36.3 C (97.3 F) | 12/14/2018 12:59 PM | | | | | PDT | | + + + + + | Respiratory Rate | 18 | 12/14/2018 4:15 PM | | | | | PDT | | + + + + + | Oxygen Saturation | 94% | 12/14/2018 4:25 PM | | | | | PDT | | + + + + + | Inhaled Oxygen | - | - | | | Concentration | | | | + + + + + | Weight | 104.7 kg (230 lb | 12/14/2018 12:59 PM | | | | 13.2 oz) | PDT | | + + + + + | Height | 170.2 cm (5' 7") | 12/14/2018 12:59 PM | | | | | PDT | | + + + + + | Body Mass Index | 36.15 | 12/14/2018 12:59 PM | | | | | PDT | | + + + + + documented in this encounter Discharge Instructions Instructions Adriana Ling RN - 12/14/2018FISTULOGRAM HOME CARE INSTRUCTIONS ACTIVITY GUIDELINES * Resume normal activities. * No driving for 24 hours if sedation was used. Refer to the Sedation Discharge Instruction s) DIET * Follow a Renal diet. * If you have any questions or concerns about the Renal diet, please call the Dialysis [facility] er at [phone] or the [facility] at [phone]. FISTULOGRAM SITE CARE * If you have any bleeding, apply firm pressure to bleeding site. CALL YOUR DOCTOR IF: * You have bleeding that doesn't stop after applying 10 to 15 minutes of firm pressure. * You have a temperature greater than 100 degrees * The site is warm, red, swollen, sore * The site has pus-like drainage DO YOU HAVE ANY OTHER QUESTIONS? If you have any question or concerns about this information or your care at home, please di scuss them with your doctor or nurse today before you leave. Or, call your doctor's office l ater. If you have any questions or concerns after business hours, please call the [facility] at [phone]. YOUR DOCTOR'S OFFICE NUMBER IS Recovery After Procedural Sedation (Adult) You have [...] You can't be awakened Date Last Reviewed: 05/11/201619992715-9683 [employer]. [address] [place] [address], [place] [address]. All righ ts reserved. This information is [...] + + + +---------+ + + | sevelamer | Take 2 tablets by | 180 | 11 | 12/12/19 | | | carbonate (RENVELA) | mouth 3 times daily | tablet | | 19 | 9 | | 800 mg tablet | (with meals). Up to | | | | | | | 6 tablets per day | | | | | + + [...] 2018 | Visit | | DO Rolan [address] [place] [address] | | | | | | [address] | | | | | | [place] | | | | | | [address] | | | | | | | | +--------+ + + + + | 09/25/ | Office | Cardiology | Sheldon Spence | | | 2019 | Visit | | [address] | | | | | | [address] [address] | | | | | | [place] | | | | | | [address] | | | | | | | | +--------+ + + + + | 09/25/ | Procedure | Cardiology | | | | 2019 | visit | | | | +--------+ + + + + | 11/28/ | Office | Cardiology | Natalie Luo DO | | | 2019 | Visit | | [address] | | | | | | [place] | | | | | | [address] | | | | | | | | +--------+ + + + + documented as of this encounter Procedures + +--------+ + + + | Procedure Name | Priori | Date/Time | Associated Diagnosis | Comments | | | ty | | | | + +--------+ + + + | POC GLUCOSE | Routin | 12/14/2018 | | Results for this | | | e | 4:47 PM | | procedure are in the | | | | PDT | | results section. | + +--------+ + + + | IR ANGIOGRAM UPPER | Routin | 12/14/2018 | Complication of | Results for this | | EXTREMITY RIGHT | e | 3:46 PM | arteriovenous | procedure are in the | | | | PDT | dialysis fistula, | results section. | | | | | initial encounter | | | | | | ESRD (end stage | | | | | | renal disease) on | | | | | | dialysis (HCC) | | + +--------+ + + + | I/R PROCEDURE | | 12/14/2018 | Low flow and | | | | | 2:46 PM | prolonged bleeding | | | | | PDT | post dialysis, right | | | | | | UE fistulagram | | + +--------+ + + + +---+--------+ | | Case | | | Notes | | | H&P | | | | | | 9 by | | | Alcantar | +---+--------+ | | | | | Specia | | | l | | | Needs | | | Pt to | | | check | | | in at | | | 1200 | +---+--------+ + +--------+ +---+ + | POC GLUCOSE | Routin | 12/14/2018 | | Results for this | | | e | 1:05 PM | | procedure are in the | | | | PDT | | results section. | + +--------+ +---+ + documented in this encounter Results POC Glucose (12/14/2018 4:47 PM PDT) + +-------+ + + + | Component | Value | Ref Range | Performed | Pathologist | | | | | At | Signature | + +-------+ + + + | Glucose, | 90 | 70 - 109 mg/dL | [facility] [...] [address] | [place] | [phone] | | [facility] | | [address] | | | - LABORATORY | | | | + + + + + IR Angiogram Upper Extremity Right (12/14/2018 3:46 PM PDT) + + | Specimen | + + | | + + + + -----+ | Narrative | Performed At | + + -----+ | CLINICAL DATA: | [facility] | | Poor fistula flow COMPARISON STUDIES: None. PRIMARY DIVER TENDER: | | | Velasquez Hayes MD, PhD, [facility] OPERATIONS:1. Ultrasound-guided right | | | cephalic fistula access2. Right upper extremity fistulogram3. | | | Right cephalic balloon angioplasty. PROCEDURE: Informed consent | | | was obtained from the patient. Continuous cardiac monitoringwas | | | performed throughout the procedure. Conscious sedation was provided | | | by thenursing staff during the procedure under my supervision. | | | Sedation time:25 minutesMedications: 0.5 mg Versed IV, 25 mcg Fentanyl | | | IV, 2000 units heparin IVAntibiotic: NoneContrast:20 cc | | | nonionicFluoroscopy time:1.0 minutesRadiation dose:28.5 mGy air kerma | | | Patient was sterilely prepped and draped of the right upper extremity | | | fistula.The fistula was first assessed with grayscale ultrasound | | | ascites within thelower fistula for access. Skin was locally | | | anesthetized with 1% lidocaine thesplenic was made with 11 blade. | | | Real-time ultrasound-guided micropuncture accesswas obtained and a | | | single ultrasound photo image was saved. Right upperextremity fistula | | | gram was performed through the arm and chest includingcompression | | | retrograde fistulogram of the arteriovenous anastomosis. A support | | | wire was advanced across a lower cephalic venous stenosis. Patient | | | washeparinized. A 6 Cymraes sheath was placed. A 6 x 40 mm angioplasty | | | balloon wasinflated for 2 minutes. Postprocedural imaging was | | | obtained. The wire andcatheter was removed. A 3-0 Vicryl pursestring | | | suture was placed around thesheath which was tied upon removal for | | | immediate hemostasis. FINDINGS: Right upper extremity brachiocephalic | | | fistula is patent. There is a moderate tosevere stenosis in the | | | peripheral aspect of the cephalic vein severalcentimeters beyond the | | | arteriovenous anastomosis. There are a severalcollaterals just beyond | | | the stenosis which appears to have competitive flow.Remaining aspects | | | of the cephalic vein are widely patent. The axillary,subclavian and | | | central chest veins are widely patent. The arteriovenousanastomosis is | | | widely patent. Following balloon angioplasty, there is resolution of | | | the cephalic venousstenosis. IMPRESSION - 1. Peripheral right | | | cephalic venous stenosis status post 6 mm angioplasty withresolution | | | of stenosis.2. Several collaterals arising from the peripheral aspect | | | of the cephalic veinwhich have competitive flow and may need to be | | | ligated surgically. Dictated and Signed by: Velasquez Hayes MD | | | Electronically signed: 12/14/2018 5:39 PM | | |FINDINGS: | | | | | |Right upper extremity brachiocephalic fistula is patent. There is a moderate to | | |severe stenosis in the peripheral aspect of the cephalic vein several | | |centimeters beyond the arteriovenous anastomosis. There are a several | | |collaterals just beyond the stenosis which appears to have competitive flow. | | |Remaining aspects of the cephalic vein are widely patent. The axillary, | | |subclavian and central chest veins are widely patent. The arteriovenous | | |anastomosis is widely patent. | | | | | |Following balloon angioplasty, there is resolution of the cephalic venous | | |stenosis. | | | | | |IMPRESSION - | | | | | | | | |1. Peripheral right cephalic venous stenosis status post 6 mm angioplasty with | | |resolution of stenosis. | | |2. Several collaterals arising from the peripheral aspect of the cephalic vein | | |which have competitive flow and may need to be ligated surgically. | | | | | |Dictated and Signed by: Velasquez Hayes MD | | | Electronically signed: 12/14/2018 5:39 PM | | | | | + + -----+ + + | Procedure Note | + + | Marcus May Results In - 12/14/2018 5:42 PM PDT CLINICAL DATA: Poor fistula flow | | | | COMPARISON STUDIES: None. | | | | PRIMARY DIVER TENDER: Velasquez Hayes MD, PhD, RPVI | | | | OPERATIONS: | | 1. Ultrasound-guided right cephalic fistula access | | 2. Right upper extremity fistulogram | | 3. Right cephalic balloon angioplasty. | | | | PROCEDURE: | | | | Informed consent was obtained from the patient. Continuous cardiac monitoring | | was performed throughout the procedure. Conscious sedation was provided by the | | nursing staff during the procedure under my supervision. | | | | Sedation time:25 minutes | | Medications: 0.5 mg Versed IV, 25 mcg Fentanyl IV, 2000 units heparin IV | | Antibiotic: None | | Contrast:20 cc nonionic | | Fluoroscopy time:1.0 minutes | | Radiation dose:28.5 mGy air kerma | | | | Patient was sterilely prepped and draped of the right upper extremity fistula. | | The fistula was first assessed with grayscale ultrasound ascites within the | | lower fistula for access. Skin was locally anesthetized with 1% lidocaine the | | splenic was made with 11 blade. Real-time ultrasound-guided micropuncture access | | was obtained and a single ultrasound photo image was saved. Right upper | | extremity fistula gram was performed through the arm and chest including | | compression retrograde fistulogram of the arteriovenous anastomosis. | | | | A support wire was advanced across a lower cephalic venous stenosis. Patient was | | heparinized. A 6 Cymraes sheath was placed. A 6 x 40 mm angioplasty balloon was | | inflated for 2 minutes. Postprocedural imaging was obtained. The wire and | | catheter was removed. A 3-0 Vicryl pursestring suture was placed around the | | sheath which was tied upon removal for immediate hemostasis. | | | | FINDINGS: | | | | Right upper extremity brachiocephalic fistula is patent. There is a moderate to | | severe stenosis in the peripheral aspect of the cephalic vein several | | centimeters beyond the arteriovenous anastomosis. There are a several | | collaterals just beyond the stenosis which appears to have competitive flow. | | Remaining aspects of the cephalic vein are widely patent. The axillary, | | subclavian and central chest veins are widely patent. The arteriovenous | | anastomosis is widely patent. | | | | Following balloon angioplasty, there is resolution of the cephalic venous | | stenosis. | | | | IMPRESSION - | | | | | | 1. Peripheral right cephalic venous stenosis status post 6 mm angioplasty with | | resolution of stenosis. | | 2. Several collaterals arising from the peripheral aspect of the cephalic vein | | which have competitive flow and may need to be ligated surgically. | | | | Dictated and Signed by: Velasquez Hayes MD | | Electronically signed: 12/14/2018 5:39 PM | + + + +---------+ + + | Performing | Address | City/State/Zipcode | Phone Number | | Organization | | | | + +---------+ + + | [facility] | | | | + +---------+ + + POC Glucose (12/14/2018 1:05 PM PDT) + +-------+ + + + | Component | Value | Ref Range | Performed | Pathologist | | | | | At | Signature | + +-------+ + + + | Glucose, | 76 | 70 - 109 mg/dL | [facility] [...] [address] | [place] | [phone] | | [facility] | | [address] | | | - LABORATORY | | | | + + + + + documented in this encounter Visit Diagnoses + + | Diagnosis | + + | Complication of arteriovenous dialysis fistula, initial encounter | + + | ESRD (end stage renal disease) on dialysis (HCC) End stage renal disease | + + documented in this encounter Administered Medications + +--------+---------+------+------+------+ | Medication Order | MAR | Action | Dose | Rate | Site | | | Action | Date | | | | + +--------+---------+------+------+------+ + +---+ | dextrose 10% (D10W) infusion | | | at 50 mL/hr, Intravenous, | | | CONTINUOUS PRN, hypoglycemia, | | | Starting Silvia 12/14/18 at 1240, | | | Start infusion if unable to | | | maintain blood glucose greater | | | than 70 mg/dL after two rounds of | | | hypoglycemia treatment. Recheck | | | blood glucose 30 minutes after | | | starting D10W then at least | | | hourly and PRN until it is | | | discontinued. Call provider to | | | discuss parameters for D10W | | | discontinuation., Pre-op | | + +---+ | | | + +---+ | dextrose 50% injection 12.5-25 | | | g 12.5-25 g, Intravenous, PRN, | | | Low Blood Sugar, Starting Silvia | | | 12/14/18 at 1240, For blood | | | glucose 50-69 mg/dl - give 12.5 g | | | For blood glucose less than 50 | | | mg/dl - give 25 g, Pre-op | | + +---+ | | | + +---+ + +-------+ +--------+---+---+ | fentaNYL (PF) injection PRN, | Given | 12/15/19 | 25 mcg | | | | Starting Silvia 12/14/18 at 1502 | | 19 3:02 | | | | | | | PM PDT | | | | + +-------+ +--------+---+---+ +---+---+ | | | +---+---+ + +-------+ +--------+---+---+ | heparin 1,000 units/mL | Given | 12/15/19 | 2,000 | | | | injection PRN, Starting Silvia | | 19 3:10 | Units | | | | 12/14/18 at 1510 | | PM PDT | | | | + +-------+ +--------+---+---+ + +---+ | | | + +---+ | heparin 100 units/mL flush | | | injection 500 Units 500 Units (5 | | | mL), Intracatheter, ONCE PRN, | | | Line Care, if port was used., | | | Starting Silvia 12/14/18 at 1240, For | | | 1 dose, Pre-op | | + +---+ | | | + +---+ + +-------+ +---------+---+ + | lidocaine buffered 0.9% | Given | 12/15/19 | 0.5 mLs | | Surgical | | injection Infiltration, PRN, | | 19 3:07 | | | Site | | Starting Silvia 12/14/18 at 1507 | | PM PDT | | | | + +-------+ +---------+---+ + +---+---+ | | | +---+---+ + +-------+ +--------+---+---+ | midazolam (VERSED) 5 mg/mL | Given | 12/15/19 | 0.5 mg | | | | injection PRN, Starting Silvia | | 19 3:02 | | | | | 12/14/18 at 1502 | | PM PDT | | | | + +-------+ +--------+---+---+ +---+---+ | | | +---+---+ + +---------+ +---+-------+---+ | sodium chloride 0.9% (NS) | New Bag | 12/15/19 | | 100 | | | infusion at 100 mL/hr, | | 19 1:08 | | mL/hr | | | Intravenous, CONTINUOUS, Starting | | PM PDT | | | | | Silvia 12/14/18 at 1300, To keep | | | | | | | open., Pre-op | | | | | | + +---------+ +---+-------+---+ +---+---+ | | | +---+---+ documented in this encounter Additional Health Concerns + + + + | Infection | Noted Time | Resolved Time | + + + + | Methicillin-resistant Staphylococcus aureus | 10/30/2018 9:33 AM | | | | PDT | | + + + + documented as of this encounter
--- OUTSIDE RECORDS SUMMARY | ~2019-07-14 | XMS | Encounter Summary ---
Demographics + + + | Address | [address] | | | [place] [address] | + + + | Home Phone [...] + | Lula Kerr | ECON | [address] | | | | | [place] | | | | | [address] | | + + + + + Care Team Providers + +------+ + | Care Limousine Driver Name | Role | Phone | + +------+ + PCP | Unavailable | + +------+ + Encounter Details +--------+ + + + + | Date | Type | Department | Care Team | Description | +--------+ + + + + | 03/01/ | Hospital | [facility] | | | | 2001 - | Encounter | MED CTR OP REHAB | | | | | | [address] [place] | | | | 04/02/ | | [place] [address] | | | | 2002 | | [phone] | | | +--------+ + + + [...] 2019 | Visit | | DO Rolan [address] [place] [address] | | | | | | [address] | | | | | | [place] | | | | | | [id number] | | | | | | | | +--------+ + + + + | 09/25/ | Office | Cardiology | Sheldon Spence | | | 2019 | Visit | | [address] | | | | | | [address] | | | | | | [place] | | | | | | [address] | | | | | | | [...]
--- OUTSIDE RECORDS SUMMARY | ~2019-07-14 | XMS | Encounter Summary ---
Demographics + + + | Address | [address] | | | [place] [address] | + + + | Home Phone [...] + | Lula Kerr | ECON | [address] | | | | | [place] | | | | | [address] | | + + + + + Care Team Providers + +------+ + | Care Technical Writer And Editor Name | Role | Phone | + +------+ + | Gregory Drummond MD | PCP | | + +------+ + Encounter Details +--------+ + + + + | Date | Type | Department | Care Team | Description | +--------+ + + + + | 10/14/ | [facility] | [facility] | Charisse Santana | | | 2014 | Encounter | MED CTR OR INTRA OP | [address] | | | | | [address] | [place], | | | | | [place], [place] | [place] [address] | | | | | [address] | [phone] | | | | | [phone] | | | +--------+ + + + [...] Ashley hardy discharge of pt to the [facility] to see Dr. Drummond on sat's of [...] [place] | | | | | | [phone] | | | | | | | | +--------+ + + + + | 09/25/ | Office | Cardiology | Sheldon Spence | | | 2019 | Visit | | [address] | | | | | | [address] | | | | | | [place] | | | | | | [address] | | | | | | | [...] [place] | | | | | | [address] | | | | | | | [...] | [address] | [place] | [phone] | | [facility] | | [address] | | | - LABORATORY | | [...]
--- OUTSIDE RECORDS SUMMARY | ~2019-07-14 | XMS | Encounter Summary ---
Demographics + + + | Address | [address] | | | [place] [address] | + + + | Home Phone | | + + + | Preferred Language | Unknown | + + + | Marital Status | | + + + | Jewish Affiliation | 1041 | + + + | Race | Unknown | + + + | Ethnic Group | Unknown | + + + Author + + + | Author | [facility] | | | and [place] | + + + | Organization | [facility] | | | and [place] | + + + | Address | Unknown | + + + | Phone | Unavailable | + + + Support + + + + + | Name | Relationship | Address | Phone | + + + + + | Lula Kerr | ECON | [address] | | | | | [place] | | | | | [address] | | + + + + + Care Team Providers + +------+ + | Care Cleaning Matron Name | Role | Phone | + [...] | | | | | [place], | [place] [address] | | | | | | [place] [address] | Phone: | | | | | | Phone: | [phone] | | | | | | [phone] | Fax: | | | | | | Fax: | [phone] | | | | | | [phone] | | +--------+--------+ + + + + Encounter Details +--------+---------+ + + + | Date | Type | Department | Care Team | Description | +--------+---------+ + + + | 03/21/ | Office | [facility] EP | Sheldon Johnson | Ischemic | | 2019 | Visit | CARDIOLOGY HELEN | [address] | cardiomyopathy | | | | [address] | [address], [place] | (Primary Dx); | | | | [place] | [place] | Ventricular | | | | [phone] | [address] | tachycardia (HCC); | | | | [phone] | | Complete heart block | | [...] reports he spoke with his primary physician [facility] e his last visit and decided not [...] AVF; Surgeon: Amilcar Hampton MD, FACS; Location: [facility] MAIN OR BACK SURGERY CARDIAC CATHERIZATION CARDIAC SURGERY CARDIOVASCULAR STRESS TEST 10/2018 Persantine SPECT: reversible anterior, apical. anteroseptal, inferoapical defect, EF 36% CATARACT REMOVAL WITH IMPLANT Left 09/16/2014 Procedure: Left Cataract Extraction w/ IOL Implant; Surgeon: Charisse Santana MD; Loc ation: [facility] MAIN OR CATARACT REMOVAL WITH IMPLANT Right 10/14/2014 Procedure: Right Cataract Extraction w/ IOL Implant; Surgeon: Charisse Santana MD; Lo cation: [facility] MAIN OR CORONARY ANGIOPLASTY CORONARY ARTERY BYPASS GRAFT CORONARY ARTERY BYPASS GRAFT EGD AND COLONOSCOPY N/A 12/18/2015 Procedure: EGD / COLONOSCOPY - bmi 44 - has pacemaker defibrilator ; Surgeon: Meredith forbes MD; Location: [facility] MEDICAL PROCEDURE UNIT IR PROCEDURE Right 12/14/2018 Procedure: Fistulagram; Surgeon: Velasquez Hayes MD; Location: [facility] INTERVENTIONAL RADIOLO GY KNEE SURGERY Right OTHER SURGICAL HISTORY UNLISTED PROCEDURE ARTHROSCOPY pacemaker medtronic PACEMAKER INSERTION SHUNT PLACEMENT/INSERTION Right 07/03/2018 Procedure: INSERTION SHUNT HEMODIALYSIS W/ PERMACATH; Surgeon: Melba Wallace MD; L ocation: [facility] MAIN OR TRANSTHORACIC ECHOCARDIOGRAM 10/2018 EF 30-35%, [...] re complex is noted Device Interrogation: His [employer] biventricular pacemaker/ICD was interrogated an d [...] he agrees to follow-up with cardiology in [place]. We also discussed restartin g a beta-cheli [...] addition of further medications such as a beta-cheli. He i s aware of the risk [...] 2018 | Visit | | M, DO [address] [place] [address] | | | | | | Cate [...] [place] | | | | | | [address] | | | | | | | [...] [place] | | | | | | [address] | | | | | | | [...] | | | | | by [facility] Read Only, | | | | | | [facility] ([id number]), | | | | | | managing editor Dominic Patel | | | | | [...]
--- OUTSIDE RECORDS SUMMARY | ~2019-07-14 | XMS | Encounter Summary ---
Demographics + + + | Address | [address] | | | [place] [address] | + + + | Home Phone | | + + + | Preferred Language | Unknown | + + + | Marital Status | | + + + | Pentecostal Affiliation | 1041 | + + + | Race | Unknown | + + + | Ethnic Group | Unknown | + + + Author + + + | Author | [facility] | | | and [place] | + + + | Organization | [facility] | | | and [place] | + + + | Address | Unknown | + + + | Phone | Unavailable | + + + Support + + + + + | Name | Relationship | Address | Phone | + + + + + | Lula Kerr | ECON | [address] | | | | | [place] | | | | | [address] | | + + + + + Care Team Providers + +------+ + | Care Banquet Line Cook Name | Role | Phone | + [...] | | | | | | | (FORMERLY [facility]) Acute | | | | | | [...] | | | | | | | (FORMERLY [facility]) | | | | | | | | | | +--------+--------+ + + + + Encounter Details +--------+---------+ + + + | Date | Type | Department | Care Team | Description | +--------+---------+ + + + | 07/03/ | Surgery | [facility] | Melba Wallace | INSERTION SHUNT | | 2018 | | MED CTR OR INTRA OP | MD [address] | HEMODIALYSIS W/ | | | | [address] | [facility] | [place] | | | | [place], [place] | [place] [address] | | | | | [address] | [phone] | | | | | [phone] | | | +--------+---------+ + + + [...] - Will continue dialysis, planned f/u at [place] dialysis unit, unclear if he will ever [...] monitor nutrition Code Status: No Code. Disposition: [facility] Discharge Condition: Stable Somewhat distant breath sounds throughout, scattered rhonchi, no increased work of breathin g Heart RRR Abd soft, obese, NT Ext WWP, 3-4 cm pitting ochoa Contact information for after-discharge care Placement Destination [facility] . Specialty: [facility] Facility Contact information: [place] [address] Discharge Medications New Medications Details albuterol-ipratropium [...] signed by: Bruce Alcantar MD, 07/08/2018 13:31 [facility] documented in this encounter Discharge Instructions [...] of this encounter Progress Notes Penny Deng, MERI - 07/08/2018 10:00 AM PSTButch is offered BiPAP every night but he also refuses to wear it.Electronically signed by Penny Deng RRT at 8 11:00 AM Wing Floyd, HildaD - 07/07/2018 5:00 PM PST PHARMACY SERVICES: [...] lost his temper and started cussing at [facility] because they "have already gone over this medication list several times with other staff members." Patient and his both raised their voices at [facility] then cut interview short after repeatedly telling [...] garding this. The drug is listed as "[place] [employer] study drug" 1 tab by mouth once daily on Dr. Johana Gongora edication list. It is unknown if/how the patient is taking. Dr. Vaughn office told us it was highly confidential therefore there is no information re garding this in the patients chart notes. Ertugliflozin vs. Placebo is listed on the patients PRINTER SLOTTER OPERATOR list under trail drug. However, Ertugliflozin has been approved by the FDA. Ertugliflozin is manufactured by [employer]. Best possible PRINTER SLOTTER OPERATOR medication list after pharmacy review: PT REPORTED TAKING NOT TAKING Medication Sig Last Dose Dispense Doc. Provider allopurinol (ZYLOPRIM) 300 mg tablet Take 150 mg by mouth Daily. Taking Historical Sarah chavez MD aspirin 81 MG tablet Take 81 mg by mouth. Three times a week Taking Historical ProviderMD atorvaSTATin (LIPITOR) 40 mg tablet Take 40 mg by mouth nightly. Taking Historical Sarah chavez MD carvedilol (COREG) 25 mg tablet Take 25 mg by mouth 2 times daily. Taking Historical Breann blanton MD fexofenadine (HECTOR) 180 mg tablet Take 180 mg by mouth Daily as needed for Allergies. Historical ProviderMD furosemide (LASIX) 40 mg tablet Take 40 mg by mouth 2 times daily. Taking Historical Breann blanton MD glimepiride (AMARYL) 2 MG tablet Take 1-2 mg by mouth every morning (before breakfast). Paul bales Historical ProviderMD losartan (COZAAR) 50 mg tablet Take 50 mg by mouth 2 times daily. Historical ProviderRolan metOLazone (ZAROXOLYN) 2.5 mg tablet Take 2.5 mg by mouth Daily. Historical ProviderMD non-formulary medication Take 10 mg by mouth Daily. Ertugliflozin - Diabetes study drug vs . placebo Not Taking Historical MD Aure omeprazole (PRILOSEC) 40 MG capsule Take 40 [...] performed and electronically signed by Ashley Farmer, Java Groovy Developer 07/06 16:05 Reviewed by Wing Torres PharmShola 07/07/2018 16:57 ilvina Alcantar M D - 07/07/2018 10:[address] [facility] NEPHROLOGY progress note Patient: David Kerr Jr. [...] today. -Will arrange for outpatient HD in [place]. -At discharge, recommend continuing Lasix at 160 mg PO BID. 2. Hypoxia due to pulmonary edema / pulmonary hypertension / EVITA. Remains on oxygen by nasal cannula. EVITA: Poor tolerance to CPAP. Will continue to use nasal cannula at nighttime for EVITA. 3. Anemia. Last Hb stable. 4. Dispo. Anticipate SNF placement in [place]. 24 HR EVENTS UOP 1050 mL, on [...] Silvina Alcantar MD Electronically signed: 07/07/2018 10:46 [facility] Silvina South MD - 07/06/2018 10:[address] [facility] NEPHROLOGY progress note Patient: David Kerr Jr. [...] Silvina Alcantar MD Electronically signed: 07/06/2018 10:59 [facility] Marilynn Cr MATERIALS HANDLER - 07/06/2018 9:25 AM Yahir met with Elias and Lula to complete advance directive with Elias, following POLST conversation with Palliative Care COUPLES THERAPIST. Elias named Lula as his POA for healthcare and eldest son David SHETH ([facility]) his alternate. said he would be a ble to notarize the document 07/07. Bruce South MD - 07/05/2018 8:08 PM PST [facility] PMG Hospitalist Progress Note David Kerr Jr. [...] as outlined above. Bruce Alcantar 07/05/2018 20:08 [facility] Ofelia Pandey AR ASSEMBLY WORKER - 07/05/2018 5:21 PM PSTBrjanusz Palliative Care note: FATOUAMTA Jimenez Briefly followed up with Mr. Kerr [...] Directive will be completed with palliative care MATERIALS HANDLER Marilynn Garcia. Brannon, Silvina Moses MD - 07/05/2018 9:[address] [facility] NEPHROLOGY progress note Patient: David Kerr Jr. [...] Silvina Alcantar MD Electronically signed: 07/05/2018 9:32 [facility] Ofelia Pandey AR ASSEMBLY WORKER - 07/04/2018 3:56 PM PST [facility] PALLIATIVE CARE PROGRESS NOTE Pt. Name/Age/: David Kerr Jr. 72 y.o. 1945 Med. Record Number: [id number] Palliative Ventilated Rib Fitter: FATOUMATA Ash Palliative Care Team: ENZO Tobin [...] acute tubu lar necrosis and septic shock. Pastry Cook Silvina Alcantar MD initiated hemodialysis on 06/28/18 (Left femora HD catheter place on 06/28/18) and indicates she suspects ischemia / cardio renal syndrome. It is not clear at this time whether renal function will improve or penitentiary dialysis will be needed / recommended. Interim HPI: It appears that penitentiary dialysis will in fact be needed for [...] defibrilator ; Surgeon: Meredith forbes MD; Location: [facility] MEDICAL PROCEDURE UNIT pacemaker medtronic SHUNT PLACEMENT/INSERTION Right 07/03/2018 Procedure: INSERTION SHUNT HEMODIALYSIS W/ [place]; Surgeon: Melba Wallace MD; L ocation: [facility] MAIN OR History reviewed. No pertinent [...] Assessments Symptom Assessment Tool (based on Modified Moroni Symptom Assessment Scale) [x] Unable or incomplete [...] christina Jr, and daughter Cesia, palliative care COUPLES THERAPISTGwendolyn Jimenez and MATERIALS HANDLER Marilynn Garcia. Elias i s unable to [...] under direction of the Provider: Palliative Care Bonding Molder: Fredi Tidwell Palliative Care Document Image Technician: ENOZ Tobin * I have personally reviewed the information with the patient and/or family and concur with the information recorded by fellow steam bone press tender signed above. Palliative Care Provider: FATOUMATA Ash Total time of approximately 55 minutes ([id number], [phone]) was spent with the patient a nd/or patient's family, and/or on the patient's floor/unit, of which more than 50% was spent counseling and/or coordination the patient's care as outlined above. Topics Discussed: See discussion notes under Discussion and Plan section. Electronically signed by: FATOUMATA Hughes, 07/04/2018 15:56 AGUIRRE: AFTT - adult failure to thrive COUPLES THERAPIST - advanced registered nurse practitioner BiPAP - bilevel positive airway pressure BP- blood pressure CN-cranial nerves CPAP-continuous positive airway pressure dc'd - discharged or discontinued EOMI-extraocular movement intact HR-heart rate HSM-hepatosplenomegaly LE-lower extremity MD- doctor of medicine [id number]-wsblxs saturation PERRLA-pupils equal, round, reactive to light and accommodation RR-respiratory rate S1 S2- 1st and 2nd heart sounds T-temperature JVD-jugular vein distension Silvina South MD - 07/04/2018 12:[address] [facility] NEPHROLOGY progress note Patient: David Kerr Jr. [...] Silvina Alcantar MD Electronically signed: 07/04/2018 12:14 [facility] Cristal Denson, Occup Therapist - 07/04/2018 11:19 AM PSTFormatting of this note might be different from t sharan original. IV TO PO PER PHARMACY PROTOCOL David Kerr Jr. is a 72 y.o. [...] Lab 07/01/18 0332 06/30/18 0402 06/29/18 0321 06/28/18 0357 HGB 11.3* 11.9* 12.2* 12.8* HCT [...] orally famotidine 20 mg q24hr Cristal Haro, Occup Therapist 07/04/2018 11:20 [facility] IV TO PO Collaborative Practice Protocol Bruce Stark MD - 07/04/2018 7:04 AM PSTFormatting of this note might be different from tati mcdonough. [facility] PM Hospitalist Progress Note David Raimei George. is a 72 y.o. male ASSESSMENT and [...] as outlined above. Bruce Alcantar 07/04/2018 7:05 [facility] Cristal Denson, Occup Therapist - 07/03/2018 1:22 PM PSTFormatting of this [...] ADJUSTMENT PROTOCOL Electronically signed by: Cristal Haro, Occup Therapist 07/03/2018 13:22Electronicall y signed by Cristal Haro, Occup Therapist at 07/03/2018 1:31 PM Silvina South MD - 07/03/2018 10:[address] [facility] NEPHROLOGY progress note Patient: David Kerr Jr. [...] Silvina Alcantar MD Electronically signed: 07/03/2018 10:00 [facility] asey, Melba Bolaños MD - 07/03/2018 9:12 AM PST [place] --[place], [place] General Surgery Team Hospital Day: 8 [...] Signed by: Melba Wallace MD, 07/03/2018 9:12 [facility] Chava Morales DO - 07/03/2018 7:30 AM PSTFormatting of this note mi ght be different from the original. [place], [place] HOSPITALIST PROGRESS NOTE Patient: David Kerr Jr. : 1945: Age: 72 y.o. MedRec: [id number] Admission date: 06/26/2018 Hospital day # : [...] see his primary care provider at the [place] [facility] and complained of generalize d swelling [...] His hospitalization was complicated by metabolic ac addison encephalopathy likely due to hypercapnia and uremia. [...] would benefit from outpatient follow-up with a food and nutrition teacher # Moderate protein calorie malnutrition: [...] day Chava Werner DO 100 mL/hr at 07/02/182056 100 mg at 07/02/182056 famotidine (PEPCID) injection 20 mg 20 mg Intravenous BID Mabel Jaimes MD 20 mg at 07/02/182056 heparin 1,000 units/mL injection 1,500-6,000 Units 1,500-6,000 Units Intracatheter PRN Silvina Alcantar MD 2,800 Units at 06/30/18 194 heparin 1,000 units/mL injection 500 Units 500 Units Intravenous With each dialysis Yonas Alcantar MD 500 Units at 07/02/18 1007 heparin in half-normal saline 50 units/mL infusion 200 Units/hr Intravenous Continuous PRN Silvina Alcantar MD Stopped at 07/02/18 1405 insulin lispro (humaLOG KWIKPEN) injection (pen) 0-6 Units 0-6 Units Subcutaneous 4x D aily WC and HS Mabel Jaimes MD Stopped at 07/02/18 210 norepinephrine in saline (LEVOPHED) 16 mcg/mL infusion [...] and affect Chava Werner DO 07/03/2018 7:30 [facility] Portions of this chart may have been created with [employer] voice recognition software. Occasi onal wrong-word or sound-alike substitutions may have occurred due to the inherent al itations of voice recognition software. Please read the chart carefully and recognize, using context, where these substitutions have occurred Silvina South MD - 07/02/2018 11:[address] [facility] NEPHROLOGY progress note Patient: David Kerr Jr. [...] Silvina Alcantar MD Electronically signed: 07/02/2018 11:44 [facility] Chava Morales DO - 07/02/2018 7:15 AM PST [facility] HOSPITALIST PROGRESS NOTE Patient: David Kerr Jr. : 1945: Age: 72 y.o. MedRec: [id number] Admission date: 06/26/2018 Hospital day # : [...] see his primary care provider at the [facility] and complained of generalize d swelling and [...] would benefit from outpatient follow-up with a food and nutrition teacher # Moderate protein calorie malnutrition: [...] Silvina Alcantar MD 2,800 Units at 06/30/18 194 heparin 1,000 units/mL injection 500 Units 500 Units Intravenous With each dialysis Yonas Alcantar MD 500 Units at 06/30/18 1258 heparin in half-normal saline 50 units/mL infusion 200 Units/hr Intravenous Continuous PRN Silvina Alcantar MD insulin lispro (humaLOG KWIKPEN) injection (pen) 0-6 Units 0-6 Units Subcutaneous 4x D aily and HS Mabel Jaimes MD Stopped at 06/30/186 norepinephrine in saline (LEVOPHED) 16 mcg/mL infusion [...] Nightly Mabel Jaimes MD 50 mg at 07/01/18 2125 Current Infusions: Heparin Infusion norepinephrine Stopped (06/29/182303) [...] and affect Chava Werner DO 07/02/2018 7:15 [facility] Portions of this chart may have been created with [employer] voice recognition software. Occasi onal wrong-word or sound-alike substitutions may have occurred due to the inherent al itations of voice recognition software. Please read the chart carefully and recognize, using context, where these substitutions have occurred Silvina South MD - 07/01/2018 11:[address] [facility] NEPHROLOGY progress note Patient: David Kerr Jr. [...] Flow (L/min) Av.5 Min: 28 Max: 30 06/30 0701 - 07/01 0700 In: 395 [P.O.:120; [...] Silvina Alcantar MD Electronically signed: 07/01/2018 11:09 [facility] Chava Morales DO - 07/01/2018 7:29 AM PST [facility] Patient: David Kerr Jr. : 1945: Age: 72 y.o. MedRec: [id number] Admission date: 06/26/2018 Hospital day # : [...] see his primary care provider at the [facility] and complained of generalize d swelling and [...] would benefit from outpatient follow-up with a food and nutrition teacher # Moderate protein calorie malnutrition: [...] Mabel Jaimes MD 81 mg at 06/30/18 32 atorvaSTATin (LIPITOR) tablet 40 mg 40 mg Oral Nightly Mabel Jaimes MD 40 mg at 06/30/182050 cefTRIAXone (ROCEPHIN) 2 g in sodium chloride 0.9% 50 mL IVPB 2 g Intravenous Daily Darin Jaimes MD 100 mL/hr at 06/30/18831 2 g at 06/30/18831 dextrose 50% injection 12.5 g 12.5 g [...] care glucose Recent Labs Lab 07/01/18 0616 06/30/18 2050 06/30/18 1656 06/30/18 1338 06/30/18 0831 06/30/18 0710 [...] Neuro: answering questions appropriately. Following all commands. 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 voice recognition software. Occasi onal wrong-word or sound-alike substitutions may have occurred due to the inherent al itations of voice recognition software. Please read the chart carefully and recognize, using context, where these substitutions have occurred Silvina South MD - 06/30/2018 11:[address] [facility] NEPHROLOGY progress note Patient: David Kerr Jr. [...] Silvina Alcantar MD Electronically signed: 06/30/2018 11:54 [facility] Chava Morales DO - 06/30/2018 7:11 AM PST [place] HOSPITALIST PROGRESS NOTE Patient: David Kerr Jr. : 1945: Age: 72 y.o. MedRec: [id number] Admission date: 06/26/2018 Hospital day # : [...] see his primary care provider at the [place] [facility] and complained of generalize d swelling [...] would benefit from outpatient follow-up with a food and nutrition teacher # Moderate protein calorie malnutrition: [...] TID Rolan Alba 1,600 mg at 06/29/18 175 sodium chloride 0.9% (NS) infusion 250 mL [...] Value Units Date/Time Culture, Respiratory, Lower, Smear [[id number]] Collected: 06/27/18 0938 Order Status: Completed Lab [...] Forgetful. Have to repeat information multiple time. 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 voice recognition software. Occasi onal wrong-word or sound-alike substitutions may have occurred due to the inherent al itations of voice recognition software. Please read the chart carefully and recognize, using context, where these substitutions have occurred Silvina South MD - 06/29/2018 9:[address] [facility] NEPHROLOGY progress note Patient: David Kerr Jr. [...] Silvina Alcantar MD Electronically signed: 06/29/2018 9:22 [facility] Chava Morales DO - 06/29/2018 7:15 AM PST [facility] [place] [facility] HOSPITALIST PROGRESS NOTE Patient: David Kerr Jr. : 1945: Age: 72 y.o. MedRec: [id number] Admission date: 06/26/2018 Hospital day # : [...] see his primary care provider at the [facility] and complained of generalize d swelling and [...] would benefit from outpatient follow-up with a food and nutrition teacher # Moderate protein calorie malnutrition: [...] mg Intravenous 2 times per day Chava DO Debbi 100 mL/hr at 06/28/182102 100 mg at [...] TID Rolan Alba 1,600 mg at 06/28/18 171 sodium chloride 0.9% (NS) infusion 250 mL 250 mL Intravenous Q30 Min PRN Silvina Hale MD traZODone (DESYREL) tablet 50 mg 50 mg Oral Nightly Mabel Jaimes MD Stopped a t 06/28/182054 Current Infusions: Heparin Infusion 200 Units/hr (06/28/18 1508) norepinephrine 3 mcg/min (06/29/18 0151) Objective Data Point of care glucose Recent Labs Lab 06/29/18 0641 06/28/18 2110 06/28/18 1717 06/28/18 1126 06/28/18 0658 06/27/18 2115 POCGLU 98 147* 122* 174* 137* 149* [...] Value Units Date/Time Culture, Respiratory, Lower, Smear [[id number]] Collected: 06/27/18 0938 Order Status: Completed Lab Status: Preliminary result Updated: 06/28/18827 Specimen: Body Fluid from Sputum, Expectorated Culture 1+ Usual Respiratory Homer Gram Stain Result 3+ White Blood Cells 2+ Epithelial cells 1+ Gram positive cocci 1+ Gram negative rods Respiratory Virus Panel, NAAT [[id number]] Collected: 06/26/182358 Order Status: Sent Lab Status: In process Updated: 06/27/18 0002 Specimen: Tissue from Nasopharynx Respiratory pathogen panel, NAAT [[id number]] Collected: 06/26/182358 Order Status: Completed Lab Status: [...] pneumoniae DNA Not Detected Narrative: Performed at: [address] [place] [id number] Special Education Secretary: Salazar Ocampo MD, Phone: [phone] Legionella, Ag, EIA, Qual, Urine [[id number]] Collected: 06/26/18 1501 Order Status: Completed Lab Status: Final result Updated: 06/27/18 1311 Specimen: Urine from Urine, Indwelling Catheter L. pneumophila Serogp 1 Ur Ag Negative Comment: Presumptive negative for L. pneumophila serogroup 1 antigen in urine, suggesting no recent or current infection. Legionnaires' disease cannot be ruled out since other serogroups and species may also cause disease. Narrative: Performed at: [address] [id number] Special Education Secretary: Salazar Ocampo MD, Phone: [phone] Culture, Urine [[id number]] Collected: 06/26/18 1500 Order Status: Completed Lab Status: Final result Updated: 06/28/18 0916 Specimen: Urine from Urine, Clean Catch Culture 6,000 CFU/ml Mixed Gram Positive Homer Comment: Suggests contamination with urogenital or skin homer. No further work-up to follow. Culture, MRSA [[id number]] Collected: 06/26/18 1312 Order Status: Completed Lab Status: Final result Updated: 06/27/18 0724 Specimen: Tissue from Nares Culture Negative for MRSA by chromogenic agar method 3+ Coagulase positive Staphylococcus Culture, Blood [[id number]] (Normal) Collected: 06/26/18 1022 Order Status: Completed Lab Status: Preliminary result Updated: 06/26/18 2231 Specimen: Blood from Peripheral Blood Culture No growth: Monitored continually by instrument for 5 days Culture, Blood [[id number]] (Normal) Collected: 06/26/18 0924 Order Status: Completed [...] lacunar infarcts. Recommendation: Consider MRI for problem maddiei ng if this would alter patient management. [...] Forgetful. Have to repeat information multiple time. 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 voice recognition software. Occasi onal wrong-word or sound-alike substitutions may have occurred due to the inherent al itations of voice recognition software. Please read the chart carefully and recognize, using context, where these substitutions have occurred Silvina South MD - 06/28/2018 9:[address] [facility] NEPHROLOGY progress note Patient: David Kerr Jr. [...] Silvina Alcantar MD Electronically signed: 06/28/2018 9:52 [facility] Chava Morales DO - 06/28/2018 7:07 AM PST [facility] HOSPITALIST PROGRESS NOTE Patient: David Kerr Jr. : 1945: Age: 72 y.o. MedRec: [id number] Admission date: 06/26/2018 Hospital day # : [...] see his primary care provider at the [facility] and complained of generalize d swelling and [...] overload and electrolytes abnormalities. Spoke to the stephanie araiza and the . expressed her understanding but [...] would benefit from outpatient follow-up with a food and nutrition teacher # Moderate protein calorie malnutrition: [...] Jaimes MD Current Infusions: norepinephrine 10 mcg/min (06/28/18 011) Objective Data Point of care glucose Recent [...] Value Units Date/Time Culture, Respiratory, Lower, Smear [[id number]] Collected: 06/27/18 0938 Order Status: Completed Lab Status: Preliminary result Updated: 06/27/18 1342 Specimen: Body Fluid from Sputum, Expectorated Gram Stain Result 3+ White Blood Cells 2+ Epithelial cells 1+ Gram positive cocci 1+ Gram negative rods Respiratory Virus Panel, NAAT [[id number]] Collected: 06/26/18 235 Order Status: Sent Lab Status: In process Updated: 06/27/18 0002 Specimen: Tissue from Nasopharynx Respiratory pathogen panel, NAAT [[id number]] Collected: 06/26/182358 Order Status: Completed Lab Status: [...] pneumoniae DNA Not Detected Narrative: Performed at: [address] [id number] Special Education Secretary: Salazar Ocampo MD, Phone: [phone] Legionella, Ag, EIA, Qual, Urine [[id number]] Collected: 06/26/18 1501 Order Status: Completed Lab Status: Final result Updated: 06/27/18 1311 Specimen: Urine from Urine, Indwelling Catheter L. pneumophila Serogp 1 Ur Ag Negative Comment: Presumptive negative for L. pneumophila serogroup 1 antigen in urine, suggesting no recent or current infection. Legionnaires' disease cannot be ruled out since other serogroups and species may also cause disease. Narrative: Performed at: [address] [id number] Special Education Secretary: Salazar Ocampo MD, Phone: [phone] Culture, Urine [[id number]] (Normal) Collected: 06/26/18 1500 Order Status: Completed Lab Status: Preliminary result Updated: 06/27/18 09 Specimen: Urine from Urine, Clean Catch Culture No growth to date Culture, MRSA [[id number]] Collected: 06/26/18 1312 Order Status: Completed Lab Status: Final result Updated: 06/27/18 07 Specimen: Tissue from Nares Culture Negative for MRSA by chromogenic agar method 3+ Coagulase positive Staphylococcus Culture, Blood [[id number]] (Normal) Collected: 06/26/18 1022 Order Status: Completed Lab Status: Preliminary result Updated: 06/26/18 223 Specimen: Blood from Peripheral Blood Culture No growth: Monitored continually by instrument for 5 days Culture, Blood [[id number]] (Normal) Collected: 06/26/18 0924 Order Status: Completed [...] relayed to the ordering provider by the [facility] immediately following the exam. Dictated and [...] Forgetful. Have to repeat information multiple time. 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 voice recognition software. Occasi onal wrong-word or [...] see his primary care provider at the [facility] and complained of generalized swelling and abdominal [...] Value Units Date/Time Culture, Respiratory, Lower, Smear [[id number]] Collected: 06/27/18 0938 Order Status: Completed Lab Status: Preliminary result Updated: 06/27/18 1342 Specimen: Body Fluid from Sputum, Expectorated Gram Stain Result 3+ White Blood Cells 2+ Epithelial cells 1+ Gram positive cocci 1+ Gram negative rods Respiratory Virus Panel, NAAT [[id number]] Collected: 06/26/182358 Order Status: Sent Lab Status: In process Updated: 06/27/18 0002 Specimen: Tissue from Nasopharynx Respiratory pathogen panel, NAAT [[id number]] Collected: 06/26/182358 Order Status: Sent Lab Status: In process Updated: 06/27/18 0002 Specimen: Tissue from Nasopharynx Legionella, Ag, EIA, Qual, Urine [[id number]] Collected: 06/26/18 1501 Order Status: Completed Lab Status: Final result Updated: 06/27/18 131 Specimen: Urine from Urine, Indwelling Catheter L. pneumophila Serogp 1 Ur Ag Negative Comment: Presumptive negative for L. pneumophila serogroup 1 antigen in urine, suggesting no recent or current infection. Legionnaires' disease cannot be ruled out since other serogroups and species may also cause disease. Narrative: Performed at: [address] [place] [id number] Special Education Secretary: Salazar Ocampo MD, Phone: [phone] Culture, Urine [[id number]] (Normal) Collected: 06/26/18 1500 Order Status: Completed Lab Status: Preliminary result Updated: 06/27/18 09 Specimen: Urine from Urine, Clean Catch Culture No growth to date Culture, MRSA [[id number]] Collected: 06/26/18 1312 Order Status: Completed Lab Status: Final result Updated: 06/27/18 0724 Specimen: Tissue from Nares Culture Negative for MRSA by chromogenic agar method 3+ Coagulase positive Staphylococcus Culture, Blood [[id number]] (Normal) Collected: 06/26/18 1022 Order Status: Completed Lab Status: Preliminary result Updated: 06/26/18 223 Specimen: Blood from Peripheral Blood Culture No growth: Monitored continually by instrument for 5 days Culture, Blood [[id number]] (Normal) Collected: 06/26/18 0924 Order Status: Completed [...] Clark, PharmD 06/27/2018 10:42 Dosing addendum by Hilda HernandezD 06/27/2018 17:08 Silvina South MD - 06/27/2018 9:[address] [facility] NEPHROLOGY progress note Patient: David Kerr Jr. : 1945 Hospital Day # 1 ASSESMENT [...] reports this was discontinued by Dr. Augustine dorantes while back. Other medications were correct: furosemide [...] (L/min) Av.1 Min: 3 Max: 40 06/26 07 - 06/27 0700 In: 2977.3 [I.V.:1657.3] Out: [...] Silvina Alcantar MD Electronically signed: 06/27/2018 9:20 [facility] NEPHROLOG[facility] Chava Morales DO - 06/27/2018 7:18 AM PST [facility] HOSPITALIST PROGRESS NOTE Patient: David Kerr Jr. : 1945: Age: 72 y.o. MedRec: [id number] Admission date: 06/26/2018 Hospital day # : [...] see his primary care provider at the [facility] and complained of generalize d swelling and [...] would benefit from outpatient follow-up with a food and nutrition teacher # Moderate protein calorie malnutrition: [...] Nightly Mabel Jaimes MD 40 mg at 12/03/18 2028 azithromycin (ZITHROMAX) tablet 500 mg 500 mg [...] at 06/27/18 0610 12 mcg/min at 06/27/18 0610 polyethylene glycol (MIRALAX) powder 17 g 17 g Oral Daily PRN Mabel Jaimes MD traZODone (DESYREL) tablet 50 mg 50 mg Oral Nightly Mabel Jaimes MD 50 mg at 06/26/18 2226 vancomycin per pharmacy Other Pharmacy Consult Mabel [...] pH, Urine 5.0 5.0 - 8.0 Specific [place] 1.015 1.001 - 1.030 Protein, Urine 30 [...] Value Units Date/Time Respiratory Virus Panel, NAAT [[id number]] Collected: 06/26/182358 Order Status: Sent Lab Status: In process Updated: 06/27/18 0002 Specimen: Tissue from Nasopharynx Respiratory pathogen panel, NAAT [[id number]] Collected: 06/26/18 235 Order Status: Sent Lab Status: In process Updated: 06/27/18 0002 Specimen: Tissue from Nasopharynx Legionella, Ag, EIA, Qual, Urine [[id number]] Collected: 06/26/18 1501 Order Status: Sent Lab Status: In process Updated: 06/26/18 1527 Specimen: Urine from Urine, Indwelling Catheter Culture, Urine [[id number]] Collected: 06/26/18 1500 Order Status: Sent Lab Status: In process Updated: 06/26/18 1549 Specimen: Urine from Urine, Clean Catch Culture, MRSA [[id number]] Collected: 06/26/18 1312 Order Status: Sent Lab Status: In process Updated: 06/26/18 1333 Specimen: Tissue from Nares Culture, Blood [[id number]] (Normal) Collected: 06/26/18 1022 Order Status: Completed Lab Status: Preliminary result Updated: 06/26/18 2231 Specimen: Blood from Peripheral Blood Culture No growth: Monitored continually by instrument for 5 days Culture, Blood [[id number]] (Normal) Collected: 06/26/18923 Order Status: Completed Lab [...] relayed to the ordering provider by the [facility] immediately following the exam. [...] flexion. 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 voice recognition software. Occasi onal wrong-word or [...] see his primary care provider at the [facility] and complained of generalized swelling and abdominal [...] Procedure Component Value Units Date/Time Culture, MRSA [[id number]] Collected: 06/26/18 1312 Order Status: Sent Lab Status: No result Specimen: Tissue from Nares Culture, Respiratory, Lower, Smear [[id number]] Order Status: Sent Lab Status: No result Specimen: Body Fluid from Sputum, Expectorated Respiratory Virus Panel, NAAT [[id number]] Order Status: Sent Lab Status: No result Specimen: Tissue from Nasopharynx Respiratory pathogen panel, NAAT [[id number]] Order Status: Sent Lab Status: No result Specimen: Tissue from Nasopharynx Culture, Blood [[id number]] Collected: 06/26/18 1022 Order Status: Sent Lab Status: In process Updated: 06/26/18 1026 Specimen: Blood from Peripheral Blood Culture, Blood [[id number]] Collected: 06/26/18 0924 Order Status: Sent Lab [...] Monitoring Protocol Electronically signed by: Al Hodges, Morgan 06/26/2018 13:29 documented in this encounter Plan of Treatment +--------+ + + + + | Date | Type | Specialty | Care Team | Description | +--------+ + + + + | 07/16/ | Off-Site | Nephrology | Maty Tian | | | 2018 | Visit | | DO Rolan [address] [place] [address] | | | | | | [address] | | | | | | [place] | | | | | | [address] | | | | | | | | +--------+ + + + + | 09/25/ | Office | Cardiology | Sheldon Spence | | 2019 | Visit | | MD [address] | | | | | | [facility] | | | | | | [place] | | | | | | [phone] | | | | | | | [...] [place] | | | | | | [address] | | | | | | | [...] + | [facility] | [address] | [place] | [phone] | | [facility] | | [address] | | | - LABORATORY | | [...] | | | | mmol/L | [facility] | | | | [...] [facility] | | | | | | . [facility] | | | [facility] | [facility] | | | | | | C[facility] - | | | | | | LABORATORY | | + + + + + + | Creatinine | 1.99 (H) | 0.60 - 1.30 | [facility] | | | | | mg/dL | . [facility] | | | | | [facility] | | | | | | C[facility] - | | | | | | LABORATORY | | + + + + + + | eGFR if not | 33 (L) | >=60 | [facility] | | | | | mL/min/1.73m2 | [facility] | | | [facility] | | | MEDICAL | | | [...] [address] | [place] | [phone] | | [facility] | | [address] | | | - LABORATORY | | [...] [address] | [place] | [phone] | | [facility] | | [address] | | | - LABORATORY | | [...] + | [facility] | [address] | [place] | [phone] | | [facility] | | [address] | | | - LABORATORY | | [...] [address] | [place] | [phone] | | [facility] | | [address] | | | - LABORATORY | | [...] [address] | [place] | [phone] | | [facility] | | [address] | | | - LABORATORY | | [...] test | | | | | | ([id number]). | | | | + + + + + + + + | Specimen | + + | Blood | + + + + + | Narrative | Performed At | + + + | Performed at: 01 - [facility] [place] [address], | REFERENCE LAB | | [place], [place] [id number] Special Education Secretary: Salazar Ocampo MD, Phone: | [facility] | | [phone] | | + + + + + + + + | Performing | Address | City/State/Zipcode | Phone Number | | Organization | | | | + + + + + | REFERENCE LAB | [address] | [place] [address] | [phone] | | [facility] | Drive [...] + | Performed at: 01 - [facility] [place] [address], | REFERENCE LAB | | [place], [place] [id number] Special Education Secretary: Salazar Ocampo MD, Phone: | [facility] | | [phone] | | + + + + + + + + | Performing | Address | City/State/Zipcode | Phone Number | | Organization | | | | + + + + + | REFERENCE LAB | [address] | [place] [address] | [phone] | | [facility] | Drive [...] + + | Performed at: 01 - [facility] [address], | REFERENCE LAB | | [place], [place] [id number] Special Education Secretary: Salazar Ocampo MD, Phone: | [facility] | | [phone] | | + + + + + + + + | Performing | Address | City/State/Zipcode | Phone Number | | Organization | | | | + + + + + | REFERENCE LAB | [address] | [place] [address] | [phone] | | [facility] | Drive [...] [address] | [place] | [phone] | | [facility] | | [address] | | | - LABORATORY | | [...] | | | | | mg/dL | . [facility] | | | | | | MEDICAL | | | | | | CENTER - | | | | | | LABORATORY | | + + + + + + | eGFR if not | 23 (L) | >=60 | [facility] | | | | | mL/min/1.73m2 | [facility] | | | [facility] | | | MEDICAL | | | [...] [address] | [place] | [phone] | | [facility] | | [address] | | | - LABORATORY | | [...] + | [facility] | [address] | [place] | [phone] | | [facility] | | [address] | | | - LABORATORY | | [...] [address] | [place] | [phone] | | [facility] | | [address] | | | - LABORATORY | | [...] [address] | [place] | [phone] | | [facility] | | [address] | | | - LABORATORY | | [...] [address] | [place] | [phone] | | [facility] | | [address] | | | - LABORATORY | | [...] + | [facility] | [address] | [place] | [phone] | | [facility] | | [address] | | | - LABORATORY | | [...] | | | | mmol/L | [facility] | | | | [...] mL/min/1.73m2 | [facility] | | | [facility] | | | MEDICAL | | | [...] [address] | [place] | [phone] | | [facility] | | [address] | | | - LABORATORY | | [...] [address] | [place] | [phone] | | [facility] | | [address] | | | - LABORATORY | | [...] + | [facility] | [address] | [place] | [phone] | | [facility] | | [address] | | | - LABORATORY | | [...] [address] | [place] | [phone] | | [facility] | | [address] | | | - LABORATORY | | [...] + | [facility] | [address] | [place] | [phone] | | [facility] | | [address] | | | - LABORATORY | | [...] mL/min/1.73m2 | [facility] | | | [place] | | | MEDICAL | | | [...] 3.0 | 2.5 - 4.6 mg/dL | [facility] [...] [address] | [place] | [phone] | | [facility] | | [address] | | | - LABORATORY | | | | + + + + + CBC with Differential (07/05/2018 6:11 AM PST) + + + + + + | Component | Value | Ref Range | Performed | Pathologist | | | | | At | Signature | + + + + + + | WBC | 9.1 | 4.0 - 11.0 K/uL | [facility] [...] | | | | WBC's | [facility] | | | | [...] [address] | [place] | [phone] | | [facility] | | [address] | | | - LABORATORY | | [...] | | | POC | | | [facility] | | | | | | [...] + | [facility] | [address] | [place] | [phone] | | [facility] | | [address] | | | - LABORATORY | | [...] [address] | [place] | [phone] | | [facility] | | [address] | | | - LABORATORY | | [...] + | [facility] | [address] | [place] | [phone] | | [facility] | | [address] | | | - LABORATORY | | [...] + | [facility] | [address] | [place] | [phone] | | [facility] | | [address] | | | - LABORATORY | | [...] mL/min/1.73m2 | [facility] | | | [place] | | | MEDICAL | | | [...] + | [facility] | [address] | [place] | [phone] | | [facility] | | [address] | | | - LABORATORY | | [...] [address] | [place] | [phone] | | [facility] | | [address] | | | - LABORATORY | | [...] [address] | [place] | [phone] | | [facility] | | [address] | | | - LABORATORY | | [...] + | [facility] | [address] | [place] | [phone] | | [facility] | | [address] | | | - LABORATORY | | [...] [address] | [place] | [phone] | | [facility] | | [address] | | | - LABORATORY | | [...] ST. | [address] | [place] | [phone] | | [facility] | | [address] | | | - LABORATORY | | [...] mL/min/1.73m2 | [facility] | | | [facility] | | | MEDICAL | | | [...] + | [facility] | [address] | [place] | [phone] | | [facility] | | [address] | | | - LABORATORY | | [...] | | POC | | | [facility] | | | | | | [...] [address] | [place] | [phone] | | [facility] | | [address] | | | - LABORATORY | | [...] [address] | [place] | [phone] | | [facility] | | [address] | | | - LABORATORY | | [...] | | POC | | | [facility] | | | | | | [...] [address] | [place] | [phone] | | [facility] | | [address] | | | - LABORATORY | | [...] + | [facility] | [address] | [place] | [phone] | | [facility] | | [address] | | | - LABORATORY | | [...] mL/min/1.73m2 | [facility] | | | [facility] | RATE,ESTIMATED | | MEDICAL | | | | mL/min/1.83h1Frov than | | CENTER - | | [...] | 9.0 | 8.3 - 10.5 | [facility] | | | | | mg/dL | [facility] | | | | | | MEDICAL | | | | | | CENTER - | | | | | | LABORATORY | | + + + + + + | Albumin | 2.3 (L) | 3.2 - 5.0 g/dL | [facility] | | | | | [...] [address] | [place] | [phone] | | [facility] | | [address] | | | - LABORATORY | | [...] + | [facility] | [address] | [place] | [phone] | | [facility] | | [address] | | | - LABORATORY | | [...] [address] | [place] | [phone] | | [facility] | | [address] | | | - LABORATORY | | [...] + | [facility] | [address] | [place] | [phone] | | [facility] | | [address] | | | - LABORATORY | | [...] + | [facility] | [address] | [place] | [phone] | | [facility] | | [address] | | | - LABORATORY | | [...] Granulocyte | Preliminary studIes have | | [facility] | | | s | indicated [...] ST. | [address] | [place] | [phone] | | [facility] | | [address] | | | - LABORATORY | | [...] mL/min/1.73m2 | [facility] | | | [facility] | | | MEDICAL | | | [...] [address] | [place] | [phone] | | [facility] | | [address] | | | - LABORATORY | | [...] [address] | [place] | [phone] | | [facility] | | [address] | | | - LABORATORY | | | | + + + + + Ammonia (06/30/2018 6:14 PM PST) + +-------+ + + + | Component | Value | Ref Range | Performed | Pathologist | | | | | At | Signature | + +-------+ + + + | Ammonia | 30 | 11 - 35 umol/L | [facility] | | | | | [...] + | [facility] | [address] | [place] | [phone] | | [facility] | | [address] | | | - LABORATORY | | [...] [address] | [place] | [phone] | | [facility] | | [address] | | | - LABORATORY | | [...] [address] | [place] | [phone] | | [facility] | | [address] | | | - LABORATORY | | [...] + | [facility] | [address] | [place], [place] | [phone] | | [facility] | | [address] | | | - LABORATORY | | [...] [address] | [place] | [phone] | | [facility] | | [address] | | | - LABORATORY | | [...] [address] | [place] | [phone] | | [facility] | | [address] | | | - LABORATORY | | [...] | | | | | g/dL | . [facility] | | | | [...] Low IPF are consistent | | [facility] | | | Fraction | with a [...] | | | | WBC's | [facility] | | | | [...] [address] | [place] | [phone] | | [facility] | | [address] | | | - LABORATORY | | [...] mL/min/1.73m2 | [facility] | | | [place] | | | MEDICAL | | | [...] + | [facility] | [address] | [place] | [phone] | | [facility] | | [address] | | | - LABORATORY | | [...] | | POC | | | [facility] | | | | | | [...] ST. | [address] | [place], [place] | [phone] | | [facility] | | [address] | | | - LABORATORY | | [...] [address] | [place] | [phone] | | [facility] | | [address] | | | - LABORATORY | | [...] + | [facility] | [address] | [place] | [phone] | | [facility] | | [address] | | | - LABORATORY | | [...] + | [facility] | [address] | [place] | [phone] | | [facility] | | [address] | | | - LABORATORY | | [...] [address] | [place] | [phone] | | [facility] | | [address] | | | - LABORATORY | | [...] mL/min/1.73m2 | [facility] | | | [place] | | | MEDICAL | | | [...] [address] | [place] | [phone] | | [facility] | | [address] | | | - LABORATORY | | [...] [address] | [place] | [phone] | | [facility] | | [address] | | | - LABORATORY | | [...] ST. | [address] | [place] | [phone] | | [facility] | | [address] | | | - LABORATORY | | [...] + | [facility] | [address] | [place] | [phone] | | [facility] | | [address] | | | - LABORATORY | | [...] [address] | [place] | [phone] | | [facility] | | [address] | | | - LABORATORY | | [...] ST. | [address] | [place] | [phone] | | [facility] | | [address] | | | - LABORATORY | | [...] | | | | | g/dL | [facility] | | | | | [...] + | [facility] | [address] | [place] | [phone] | | [facility] | | [address] | | | - LABORATORY | | [...] [address] | [place] | [phone] | | [facility] | | [address] | | | - LABORATORY | | [...] (L) | 24 - 31 mmol/L | [facility] | | | | [...] 5.56 (H) | 0.60 - 1.30 | [facility] | | | | | mg/dL | [facility] | | | | | | MEDICAL | | | | | | CENTER - | | | | | | LABORATORY | | + + + + + + | eGFR if not | 10 (L)Comment: | >=60 | [facility] | | | | GLOMERULAR FILTRATION | mL/min/1.73m2 | [facility] | | | [facility] | RATE,ESTIMATED | | MEDICAL | | | | mL/min/1.74p8Wtmi than | | CENTER - | | [...] [address] | [place] | [phone] | | [facility] | | [address] | | | - LABORATORY | | [...] [address] | [place] | [phone] | | [facility] | | [address] | | | - LABORATORY | | [...] + | [facility] | [address] | [place] | [phone] | | [facility] | | [address] | | | - LABORATORY | | [...] not | 11 (L)Comment: | >=60 | [facility] | | | | GLOMERULAR FILTRATION | mL/min/1.73m2 | [facility] | | | [facility] | RATE,ESTIMATED | | MEDICAL | | | | mL/min/1.92k2Isra than | | CENTER - | | [...] + | [facility] | [address] | [place] | [phone] | | [facility] | | [address] | | | - LABORATORY | | [...] + | [facility] | [address] | [place] | [phone] | | [facility] | | [address] | | | - LABORATORY | | [...] [address] | [place] | [phone] | | [facility] | | [address] | | | - LABORATORY | | [...] | | | Corrected, | | | [facility] | | | Arterial | | | MEDICAL | | | | | | CENTER - | | | | | | LABORATORY | | + + + + + + | pO2 Temp | 91 | mmHg | [facility] | | | Corrected, | | | [facility] | | | Arterial | | | MEDICAL | | | | | | CENTER - | | | | | | LABORATORY | | + + + + + + | PATIENT | 37.0 | | [facility] | | | TEMP | | | [facility] | | | [...] + | Hi flow 40lpm 60% | [facility] | | | [facility] | | | [facility] | | | - LABORATORY | + + + + + + + + | Performing | Address | City/State/Zipcode | Phone Number | | Organization | | | | + + + + + | [facility] | [address] | [place] | [phone] | | [facility] | | [address] | | | - LABORATORY | | [...] | | Result | | | [facility] | | [...] + | [facility] | [address] | [place] | [phone] | | [facility] | | [address] | | | - LABORATORY | | | | + + + + + POC Glucose (06/27/2018 7:01 AM PST) + +-------+ + + + | Component | Value | Ref Range | Performed | Pathologist | | | | | At | Signature | + +-------+ + + + | Glucose, | 87 | 70 - 109 mg/dL | [facility] [...] [address] | [place] | [phone] | | [facility] | | [address] | | | - LABORATORY | | [...] + + | [facility] | [address] | [place] | [phone] | | [facility] | | [address] | | | - LABORATORY | | [...] [address] | [place] | [phone] | | [facility] | | [address] | | | - LABORATORY | | [...] [address] | [place] | [phone] | | [facility] | | [address] | | | - LABORATORY | | [...] + | Performed at: 01 - [facility] [place] [address] [address], | REFERENCE LAB | | [place], [place] [id number] Special Education Secretary: Judy Tovar MD, Phone: | [facility] | | [phone] | | + + + + + + + + | Performing | Address | City/State/Zipcode | Phone Number | | Organization | | | | + + + + + | REFERENCE LAB | [address] | [place] [address] | [phone] | | [facility] | [address] | [place] | [phone] | | [facility] | | [address] | | | - LABORATORY | | [...] [address] | [place] | [phone] | | [facility] | | [address] | | | - LABORATORY | | [...] | | Anticoagulation Range: | | [facility] | | | | 2.0 - [...] + + | [facility]. | [address] | [place] | [phone] | | [facility] | | [address] | | | - LABORATORY | | [...] + | [facility] | [address] | [place] | [phone] | | [facility] | | [address] | | | - LABORATORY | | [...] + | [facility] | [address] | [place], [place] | [phone] | | [facility] | | [address] | | | - LABORATORY | | [...] | | | FILTRATION | mL/min/1.73m2 | [facility] | | | ICELANDIC | RATE,ESTIMATED | | MEDICAL | | | | mL/min/1.49d2Kkdg than | | CENTER - | | [...] | + + + + + | [facility] | [address] | [place] | [phone] | | [facility] | | [address] | | | - LABORATORY | | [...] [address] | [place] | [phone] | | [facility] | | [address] | | | - LABORATORY | | [...] + | Performed at: 01 - [facility] [address] [address], | REFERENCE LAB | | [place], [place] [id number] Special Education Secretary: Salazar Ocampo MD, Phone: | SONA - [place]EL | | [phone] | | + + + + + + + + | Performing | Address | City/State/Zipcode | Phone Number | | Organization | | | | + + + + + | REFERENCE LAB | [address] | [place] [address] | [phone] | | [facility] | Drive [...] + + | Performed at: 01 - [facility] [address], | REFERENCE LAB | | [place], [place] [id number] Special Education Secretary: Judy Tovar MD, Phone: | TIKIRP - ISABEL | | [phone] | | + + + + + + + + | Performing | Address | City/State/Zipcode | Phone Number | | Organization | | | | + + + + + | REFERENCE LAB | [address] | [place] [address] | [phone] | | [facility] | Drive [...] + | [facility] | [address] | [place] | [phone] | | [facility] | | [address] | | | - LABORATORY | | [...] [address] | [place] | [phone] | | [facility] | | [address] | | | - LABORATORY | | [...] 6.71 (H) | 0.60 - 1.30 | [facility] [...] | | | FILTRATION | mL/min/1.73m2 | [facility] | | | ICELANDIC | RATE,ESTIMATED | | MEDICAL | | | | mL/min/1.23w0Lzfa than | | CENTER - | | [...] + | [facility] | [address] | [place] | [phone] | | [facility] | | [address] | | | - LABORATORY | | [...] + | [facility] | [address] | [place] | [phone] | | [facility] | | [address] | | | - LABORATORY | | [...] + + | Performed at: 01 - [facility] [address], | REFERENCE LAB | | [place], [place] [id number] Special Education Secretary: Salazar Ocampo MD, Phone: | SONA HALL | | [phone] | | + + + + + + + + | Performing | Address | City/State/Zipcode | Phone Number | | Organization | | | | + + + + + | REFERENCE LAB | [address] | [place] [address] | [phone] | | [facility] | Drive [...] [address] | [place] | [phone] | | [facility] | | [address] | | | - LABORATORY | | [...] + + | Please note | CommentComment: College | | REFERENCE | | | | [employer] | | LAB [facility] | | | | standards require a | | - [facility] | | | | culture to beperformed | | | | | | on CSF specimens | | | | | | submitted for bacterial | | | | | | antigen testing.(CAP | | | | | | [id number]) Urine | | | | | | [...] + | Performed at: 01 - [facility] [address], | REFERENCE LAB | | [place], [place] [address] Special Education Secretary: Judy Tovar MD, Phone: | SONA - ISABEL | | [phone] | | + + + + + + + + | Performing | Address | City/State/Zipcode | Phone Number | | Organization | | | | + + + + + | REFERENCE LAB | [address] | [place] [address] | [phone] | | [facility] | Drive [...] - 1.030 | [facility] | | | [place] | | | [facility] | | [...] | | Esterase, | | | [facility] | | | Urine | | | MEDICAL | | | | | | CENTER - | | | | | | LABORATORY | | + + + + + + | Urobilinoge | 4.0 mg/dL (A) | 0.2 mg/dL, 1.0 | [facility] | | | n, Urine | | mg/dL, Negative | [facility] | | | | [...] 2 /LPF | [facility] | | | [facility] | | | [facility] | | | | | | MEDICAL | | | | | | CENTER - | | | | | | LABORATORY | | + + + + + + | URINE | Urine Culture Set Up | | [facility] | | | COMMENT | | | [facility] | | [...] [address] | [place] | [phone] | | [facility] | | [address] | | | - LABORATORY | | [...] + | [facility] | [address] | [place] | [phone] | | [facility] | | [address] | | | - LABORATORY | | [...] | | chromogenic agar method | | [facility] | | | | | | MEDICAL | | | | | | CENTER - | | | | | | LABORATORY | | + + + + + + | Culture | 3+ Coagulase positive | | [facility] | | | | Staphylococcus | | [facility] | | | [...] [address] | [place] | [phone] | | [facility] | | [address] | | | - LABORATORY | | [...] [address] | [place] | [phone] | | [facility] | | [address] | | | - LABORATORY | | [...] [address] | [place] | [phone] | | [facility] | | [address] | | | - LABORATORY | | [...] | | | | | | [employer] | | | | | [...] + + | [facility]. | [address] | [place] | [phone] | | [facility] | | [address] | | | - LABORATORY | | [...] + | [facility] | [address] | [place] | [phone] | | [facility] | | [address] | | | - LABORATORY | | | | + + + + + Parathyroid Hormone, Intact (06/26/2018 10:22 AM PST) + +---------+ + + + | Component | Value | Ref Range | Performed | Pathologist | | | | | At | Signature | + +---------+ + + + | PTH Intact | 416 (H) | 12 - 88 pg/mL | [facility] | | | | | [...] [address] | [place] | [phone] | | [facility] | | [address] | | | - LABORATORY | | [...] | | | Total | | | [facility] | | [...] | | Direct | | mg/dl | [facility] | | | | [...] [address] | [place] | [phone] | | [facility] | | [address] | | | - LABORATORY | | [...] | Top Tube | | | [facility] | | | | | | [...] [address] | [place] | [phone] | | [facility] | | [address] | | | - LABORATORY | | [...] | | | Lavender | | | [facility] | | | Top Tube | [...] + | [facility] | [address] | [place] | [phone] | | [facility] | | [address] | | | - LABORATORY | | [...] ST. | [address] | [place], [place] | [phone] | | [facility] | | [address] | | | - LABORATORY | | [...] [address] | [place] | [phone] | | [facility] | | [address] | | | - LABORATORY | | [...] ordering provider by the | | | nuclear cardiology technologist immediately following the exam. Dictated | [...] the ordering provider by the | | nuclear cardiology technologist immediately following the exam. | | [...] ST. | [address] | [place], [place] | [phone] | | [facility] | | [address] | | | - LABORATORY | | [...] | Lalo, Rad Results In - 06/26/2018 9:45 AM PST [...] (H) | 2.6 - 7.2 mg/dL | [facility] | | | | [...] [address] | [place] | [phone] | | [facility] | | [address] | | | - LABORATORY | | [...] | | | ng/mL:Procalcitonin | | [facility] | | | | levels below [...] [address] | [place] | [phone] | | [facility] | | [address] | | | - LABORATORY | | [...] + | [facility] | [address] | [place] | [phone] | | [facility] | | [address] | | | - LABORATORY | | [...] | Time | | seconds | [facility] | | | | | | MEDICAL | | | | | | CENTER - | | | | | | LABORATORY | | + + + + + + | INR | 1.0Comment: Usual Oral | 0.9 - 1.1 | [facility] | | | | Anticoagulation Range: | | [facility] | | | | 2.0 - 3.0High [...] [address] | [place] | [phone] | | [facility] | | [address] | | | - LABORATORY | | | | + + + + + Phosphorus (06/26/2018 7:24 AM PST) + + + + + + | Component | Value | Ref Range | Performed | Pathologist | | | | | At | Signature | + + + + + + | Phosphorus | 8.7 ()Comment: | 2.5 - 4.6 mg/dL | [facility] | | | | Critical Result called [...] [address] | [place] | [phone] | | [facility] | | [address] | | | - LABORATORY | | [...] [address] | [place] | [phone] | | [facility] | | [address] | | | - LABORATORY | | [...] + | [facility] | [address] | [place] | [phone] | | [facility] | | [address] | | | - LABORATORY | | [...] + | [facility] | [address] | [place] | [phone] | | [facility] | | [address] | | | - LABORATORY | | | | + + + + + B Type Natriuretic Peptide (06/26/2018 7:23 AM PST) + +---------+ + + + | Component | Value | Ref Range | Performed | Pathologist | | | | | At | Signature | + +---------+ + + + | BNP | 182 (H) | <100 pg/mL | [facility] | | | | | [...] ST. | [address] | [place] | [phone] | | [facility] | | [address] | | | - LABORATORY | | [...] | | | | mmol/L | [facility] | | | | [...] mL/min/1.73m2 | [facility] | | | ICELANDIC | RATE,ESTIMATED | | MEDICAL | | | | mL/min/1.66s7Mxka than | | CENTER - | | [...] [address] | [place] | [phone] | | [facility] | | [address] | | | - LABORATORY | | [...] [address] | [place] | [phone] | | [facility] | | [address] | | | - LABORATORY | | | | + + + + + LABS - EXTERNAL SCAN (06/19/2018 12:00 AM PST) + + + | Narrative | Performed At | + + + | Ordered by an | | | unspecified provider. | | + + + documented in this encounter Visit Diagnoses + + | Diagnosis | + + | Acute renal failure with acute tubular necrosis superimposed on chronic kidney | | disease, unspecified CKD stage (HCC) | + + documented in this encounter Administered Medications + +--------+---------+------+------+------+ | Medication Order | MAR | Action | Dose | Rate | Site | | | Action | Date | | | | + +--------+---------+------+------+------+ + +---+ | albumin 25% IVPB 12.5 [...] DAILY, First dose on Tue | | 18 8:15 | | | [...] | +---+---+ + +-------+ +--------+---+ + | bupivacaine 0.25%-EPINEPHrine | Given | 07/03/20 | 14 mLs | | Surgical | | 1:200,000 (PF) injection PRN, | | 18 4:11 | | | Site | | Starting 07/03/18 at 1611, | | PM PST | | | | | Intra-op | | | | | | + +-------+ +--------+---+ + +---+---+ | | | [...] Low | | | Blood Sugar, Starting 06/26/18 | | | at 1313 | | + +---+ | | | + +---+ | diphenhydrAMINE (BENADRYL) 12.5 | | | mg/5 mL liquid 25 mg 25 mg, | | | Oral, EVERY 4 HOURS PRN, Itching, | | | Starting 07/03/18 at 1719, | | | Oral [...] | | | | 06/26/18 at 1330, Hold for loose | | [...] +---+---+ + +-------+ +--------+---+ + | heparin 1,000 units/mL | Given | 07/03/20 | 5,000 | | Surgical | | injection PRN, Starting Mon | | 18 4:09 | Units | | Site | | 07/03/18 at 1609, Intra-op | | PM PST | | | | + +-------+ +--------+---+ + +---+---+ | | | [...] | | | | | NPO, Daytime 0917-0821 Use NIGHT | | | | | | | DOSE for doses scheduled: | | | | | | | HS, 3AM, Nighttime 7714-2079, | | | | | | + [...] | | | 07/01/18 at 1300, [place] cesar., | | | | | | | [...]
--- OUTSIDE RECORDS SUMMARY | ~2019-07-14 | XMS | Encounter Summary ---
Demographics + + + | Address | [address] | | | [place] [address] | + + + | Home Phone [...] + | Lula Kerr | ECON | [address] | | | | | [place] | | | | | [address] | | + + + + + Care Team Providers + +------+ + | Care Fish Checker Name | Role | Phone | + +------+ + PCP | Unavailable | + +------+ + Encounter Details +--------+ + + + + | Date | Type | Department | Care Team | Description | +--------+ + + + + | 10/05/ | Hospital | [facility] | | BACKACHE NOS | | 2001 | Encounter | CONVERSION DE[address] | | | [address] | | | | | | [place] | | | | | | [address] | | | | | | [phone] | | | +--------+ + + + [...] 2018 | Visit | | DO Rolan [address] [place] [address] | | | | | | [place], [address] | | | | | | [place] | | | | | | [address] | | | | | | | | +--------+ + + + + | 09/25/ | Office | Cardiology | Sheldon Spence | | | 2019 | Visit | | MD Dick Miller | | | | | | [place] | | | | | | [place] | | | | | | [address] | | | | | | | [...] [place] | | | | | | [address] | | | | | | | | +--------+ + + + + documented as of this encounter Visit Diagnoses + + | Diagnosis | + + | Backache, unspecified | + + documented in this encounter"
--- OUTSIDE RECORDS SUMMARY | ~2019-07-14 | XMS | Encounter Summary ---
Demographics + + + | Address | [address] | | | [place] [address] | + + + | Home Phone | | + + + | Preferred Language | Unknown | + + + | Marital Status | | + + + | Yazidism Affiliation | 1041 | + + + | Race | Unknown | + + + | Ethnic Group | Unknown | + + + Author + + + | Author | [facility] | | | and [place] | + + + | Organization | [facility] | | | and [place] | + + + | Address | Unknown | + + + | Phone | Unavailable | + + + Support + + + + + | Name | Relationship | Address | Phone | + + + + + | Lula Kerr | ECON | [address] | | | | | [place] | | | | | [address] | | + + + + + Care Team Providers + +------+ + | Care Scout Leaser Name | Role | Phone | + [...] | Surgery / | Diagnoses | Gregory Drummodn | , | | | | General | [address] | MD [address] | [place], | | | | Surgery | ARM AVF OR | [address] | [address] | | | | | AV GRAFT/B | [place], | [address] | | | | | Procedures | [place] | [place], | | | | | [place] | [address] | [place] [address] | | | | | | Phone: | Phone: | | | | | | [phone] | [phone] | | | | | | Fax: | Fax: | | | | | | [phone] | [phone] | + +--------+ + + + + Encounter Details +--------+ + + + + | Date | Type | Department | Care Team | Description | +--------+ + + + + | 11/23/ | Procedure | [facility] | Melba Wallace | Vascular dialysis | | 2019 | visit | SURGERY [address] | MD [address] | catheter in place | | | | [place], [place] | [facility] | ([facility]) (Primary Dx); | | | | [address] | [place] [address] | ESRD (end stage | | | | [phone] | [phone] | renal disease) ([facility]) | | | | | | | [...] this chart may have been created with [employer] voice recognition software. Occasi onal wrong-word or [...] | Visit | | DO Rolan [address] [place] [address] | | | | | | [address] | | | | | | [place] | | | | | | [address] | | | | | | | | +--------+ + + + + | 09/25/ | Office | Cardiology | Sheldon Spence | | | 2019 | Visit | | MD [address] | | | | | | [address] | | | | | | [place] | | | | | | [address] | | | | | | | [...] [place] | | | | | | [address] | | | | | | | | +--------+ + + + + documented as of this encounter Visit Diagnoses + + | Diagnosis | + + | Vascular dialysis catheter in place ([facility]) - Primary Renal dialysis status | + + | ESRD (end stage renal disease) ([facility]) End stage renal disease | + + documented in this encounter Additional Health Concerns + + + + | Infection | Noted Time | Resolved Time | + + + + | Methicillin-resistant Staphylococcus aureus | 10/30/2018 9:33 AM | | | | PDT | | + + + + documented as of this encounter
--- OUTSIDE RECORDS SUMMARY | ~2019-07-14 | XMS | Encounter Summary ---
Demographics + + + | Address | [address] | | | [place] [address] | + + + | Home Phone [...] + + | Author | [facility] | | | and [place] | + + + | Organization | [facility] | | | and [place] | + + + | Address | Unknown | + + + | Phone | Unavailable | + + + Support + + + + + | Name | Relationship | Address | Phone | + + + + + | Lula Kerr | ECON | [address] | | | | | [place] | | | | | [address] | | + + + + + Care Team Providers + +------+ + | Care Keller Machine Operator Name | Role | Phone | + +------+ + | Gregory Drummond MD | PCP | | + +------+ + Encounter Details +--------+---------+ + + + | Date | Type | Department | Care Team | Description | +--------+---------+ + + + | 10/14/ | [facility] | [facility] | Charisse Santana | Right Cataract | | 2015 | | [facility] | MD [address] | Extraction w/ IOL | | | | [address] | [place], | Implant | | | | [place], [place] | [place] [address] | | | | | [address] | [phone] | | | | | [phone] | | | +--------+---------+ + + + [...] + documented in this encounter Discharge Instructions Charisse Davis MD - 10/14/2014Leave patch on until 6 [...] Ashley hardy discharge of pt to the [facility] to see Dr. Drummond on sat's of [...] | | 2018 | Visit | | , DO [address] [place] [address] | | | | | | [place], [...] [place] | | | | | | [address] | | | | | | | [...] [place] | | | | | | [address] | | | | | | | [...] + + | [facility] | [address] | [place] | [phone] | | [facility] | | [address] | | | - LABORATORY | | | | + + + + + documented in this encounter Visit Diagnoses + + | Diagnosis | + + | Senile nuclear sclerosis, right | + + documented in this encounter [...] | | | | | solution Starting 10/14/14 at | | AM PDT | | | | | 1016, For 1 dose, HANNA, | | | | | | | JAMESON: ethan hernandez, | | | | | | + +-------+ +-------+---+---+ +---+---+ | | | +---+---+ + +-------+ +------+---+ + | betamethasone (CELESTONE | Given | 10/15/19 | 3 mg | | Surgical | | SOLUSPAN) injection PRN, | | 15 9:27 | | | Site | | Starting Tue10/14/14 at 0927, | | AM PDT | | | | | Intra-op | | | | | | + +-------+ +------+---+ + +---+---+ | | | +---+---+ + +-------+ + +---+ + | BSS intraocular solution PRN, | Given | 10/15/19 | 1 | | Surgical | | Starting Tue10/14/14 at 0925, | | 15 9:25 | Applicat | | Site | | Intra-op | | AM PDT | ion | | | + +-------+ + +---+ + +---+---+ | | | +---+---+ + +-------+ +---------+---+---+ | carbachol (MIOSTAT) 0.01% | Given | 10/15/19 | 0.5 mLs | | | | ophthalmic solution PRN, | | 15 9:27 | | | | | Starting 10/14/14 at 0927, | | AM PDT | | | | | Intra-op | | | | | | + +-------+ +---------+---+---+ +---+---+ | | | +---+---+ + +-------+ +---------+---+ + | ceFAZolin (ANCEF, KEFZOL) | Given | 10/15/19 | 12.5 mg | | Surgical | | injection PRN, Starting Mon | | 15 9:26 | | | Site | | 10/14/14 at 0926, Intra-op | | AM PDT | | [...] | +---+---+ + +-------+ +--------+---+ + | EPINEPHrine 1 mg/mL injection | Given | 10/15/19 | 0.4 mg | | Surgical | | PRN, Starting 10/14/14 at | | 15 9:26 | | | Site | | 0926, Intra-op | | AM PDT | | | | + +-------+ +--------+---+ [...] | | +---+---+ + +-------+ +-------+---+---+ | hyaluronate & chondroitin | Given | 10/15/19 | 1 kit | | | | hyaluronate (DUOVISC) intraocular | | 15 9:28 | | | | | kit PRN, Starting 10/14/14 | | AM PDT | | | | | at 0928, Intra-op | | | | | | [...] | | +---+---+ + +-------+ +---------+---+---+ | povidone-iodine 5 % ophthalmic | Given | 10/15/19 | 2 drops | | | | solution PRN, Starting Mon | | 15 9:25 | | | | | 10/14/14 at 0925, Intra-op | | AM PDT | | | | + +-------+ +---------+---+---+ [...] | +---+---+ + +-------+ +--------+---+ + | sodium chloride bacteriostatic | Given | 10/15/19 | 40 mLs | | Surgical | | 0.9% injection PRN, Starting Mon | | 15 9:28 | | | Site | | 10/14/14 at 0928, Intra-op | | AM PDT | | | | + +-------+ +--------+---+ + +---+---+ | | | +---+---+ documented in this encounter
--- OUTSIDE RECORDS SUMMARY | ~2019-07-14 | XMS | Encounter Summary ---
Demographics + + + | Address | [address] | | | [place] [address] | + + + | Home Phone [...] + | Lula Kerr | ECON | [address] | | | | | [place] | | | | | [address] | | + + + + + Care Team Providers + +------+ + | Care Supervisor Varnish Name | Role | Phone | + +------+ + | Gregory Drummond MD | PCP | | + +------+ + Reason for Visit +---------+ + | Reason | Comments | +---------+ + | Post Op | RIGHT arm AVF | +---------+ + Evaluate & Treat (Routine) +--------+--------+ + + + + | Status | Reason | Specialty | Diagnoses / | Referred By | Referred To | | | | | Procedures | Contact | Contact | +--------+--------+ + + + + | Closed | | General | Diagnoses | Gregory Drummond | , | | | | Surgery | PO right | MD Rolan [address] | Amilcar I, | | | | | are AVF or | [address] | MD FACS [address] | | | | | AV graft | [place], | [address] | | | | | Procedures | [place] | [place], | | | | | [place] [facility] | [address] | [place] [address] | | | | | OUTPATIENT | Phone: | Phone: | | | | | NEW 45 | [phone] | [phone] | | | | | MINUTES | Fax: | Fax: | | | | | | [phone] | [phone] | +--------+--------+ + + + + Encounter Details +--------+---------+ + + + | Date | Type | Department | Care Team | Description | +--------+---------+ + + + | 09/13/ | Office | [facility] | Amilcar Hampton | ESRD (end stage | | 2019 | Visit | SURGERY [address] | MD Omar, FACS [address] | renal disease) ([facility]) | | | | [place], [place] | [address] [facility] | (Primary Dx); | | | | [address] | [place] [address] | Post-operative state | | | | [phone] | [phone] | | | | | | | [...] + + + | Blood Pressure | - | - | | + + + + + | Pulse | 71 | 09/13/2018 10:13 AM | | | | | PST | | + + + + + | Temperature | 36.6 C (97.9 F) | 09/13/2018 10:13 AM | | | | | PST | | + + + + + | Respiratory Rate | - | - | | + + + + + | Oxygen Saturation | 90% | 09/13/2018 10:13 AM | | | | | PST | | + + + + + | Inhaled Oxygen | - | - | | | Concentration | | | | + + + + + | Weight | 107 kg (236 lb) | 09/13/2018 10:13 AM | | | | | PST | | + + + + + | Height | 170.2 cm (5' 7") | 09/13/2018 10:13 AM | | | | | PST | | + + + + + | Body Mass Index | 36.96 | 09/13/2018 10:13 AM | | | | | PST | | + + + + + documented in this encounter Progress Notes Amilcar Hampton MD, FACS - 09/13/2018 10:10 AM PSTFormatting of this note might be diff erent from the original. Patient Identification: David Kerr Jr. 1945 Is a 72 y.o. male , a pat ient of Gregory Drummond MD. Patient is here with His . S: Date of surgery: 09/05/2018. Title of surgery: RIGHT brachial artery to cephalic vein f istula. Physician notes: Patient arrives 8 day(s) s/p RIGHT brachial artery to cephalic vein fistula. Patient admits to intermittent right forearm pain , denies numbness. Denies right hand pain. He reports recovering well, has returned home. Has dialysis today, they have not started accessing RIG HT A.V Fistula. PAST MEDICAL HISTORY Past Medical History: Diagnosis Date Arteriosclerotic cardiovascular disease Chest pain Claustrophobia Dialysis patient (HCC) Gout Heart attack (HCC) Hemodialysis patient (HCC) - tue Hypercholesteremia Hyperlipidemia Hypertension Left arm pain Pacemaker Medtronic Pulmonary hypertension (HCC) Sleep apnea no CPAP Venous insufficiency Past Surgical History: Procedure Laterality Date AV FISTULA INSERTION Right 09/05/2018 Procedure: RIGHT arm AVF; Surgeon: Amilcar Hampton MD, FACS; Location: [facility] MAIN OR CATARACT REMOVAL WITH IMPLANT [...] defibrilator ; Surgeon: Meredith forbes MD; Location: [facility] MEDICAL PROCEDURE UNIT pacemaker medtronic SHUNT PLACEMENT/INSERTION Right 07/03/2018 Procedure: INSERTION SHUNT HEMODIALYSIS W/ PERMACATH; Surgeon: Melba Wallace MD; L ocation: [facility] MAIN OR Allergies Allergen Reactions Morphine Other (See Comments) Changes personality to "mean" "get mean" Medications: Outpatient Encounter Prescriptions as of 09/13/2018 Medication Sig Dispense Refill Acetaminophen 500 MG CAPS Take 1,000 mg by mouth every 6 hours as needed. [DISCONTINUED] albuterol-ipratropium 2.5-0.5 mg/3 mL SOLN Take 3 mLs by nebulization ev yared 4 hours as needed for Wheezing or Shortness of Breath. 360 mL 0 allopurinol (ZYLOPRIM) 300 mg tablet Take 150 mg by mouth Daily. [DISCONTINUED] aluminum & magnesium hydroxide-simethicone (MAALOX PLUS REGULAR STRENGTH ) 200-200-20 mg/5 mL suspension Take 30 mLs by mouth every 6 hours as needed for Indigestion . 0 aspirin 81 MG tablet Take 81 mg by mouth. Three times a week atorvaSTATin (LIPITOR) 40 mg tablet Take 40 mg by mouth nightly. [DISCONTINUED] bisacodyl (DULCOLAX) [address] 10 mg rectally Daily as nee ded for Constipation. [DISCONTINUED] calcium carbonate (TUMS) 500 mg chewable tablet Take 2 tablets by mouth every 2 hours as needed for Indigestion. 90 tablet 0 fexofenadine (HECTOR) 180 mg tablet Take 180 mg by mouth Daily as needed for Allergies . furosemide (LASIX) 80 mg tablet Take 2 tablets by mouth 2 times daily. 40 tablet 0 glimepiride (AMARYL) 2 MG tablet Take 1 tablet by mouth every morning (before breakfast ). 30 tablet 0 HYDROcodone-acetaminophen (NORCO) 5-325 mg per tablet Take 1-2 tablets by mouth every 4 hours as needed for Pain. 20 tablet 0 omeprazole (PRILOSEC) 40 MG capsule Take 20 mg by mouth every morning (before breakfast ). polyethylene glycol (MIRALAX) packet Take 1 diluted packet by mouth Daily as needed for Constipation. 0 triamcinolone (KENALOG) 0.1% cream Apply 1 Application topically Twice daily as needed for Rash. No facility-administered encounter medications on file as of 09/13/2018. History reviewed. No pertinent family history. Social History: He reports that he quit smoking about 17 years ago. His smoking use included Cigarettes. He has a 30.00 pack-year smoking history. His smokeless tobacco use includes Chew. He reports that he drinks alcohol. He reports that he does not use drugs. PHYSICAL EXAM Vitals: 09/13/18 1013 Pulse: 71 Temp: 36.6 C (97.9 F) TempSrc: Temporal SpO2: 90% Weight: 107 kg (236 lb) Height: 1.702 m (5' 7") Body mass index is 36.96 kg/m. General Appearance: Alert, cooperative, no distress, appears stated age. In wheel chair. Skin: Warm and dry Upper Extremities: RIGHT arm incision is clean and dry, good thrill present. Palpable Pulses: RIGHT LEFT Brachial Radial 0 Ulnar Neurologic: Alert and oriented x3,Moving all 4 extremities. ULTRASOUND REPORT: PATIENT NAME : David Kerr Jr. EQUIPMENT: Sonosite M-Turbo with 10-5 mHertz probe. INDICATIONS: S/P RIGHT brachial artery to cephalic vein fistula. FINDING: RIGHT cephalic vein measures 7.1 mm and is 2.0 mm deep to the skin. Good flow is present. IMPRESSION: Functioning RIGHT arm AVF. A couple of tributaries may need ligation in [place]. Assessment 1. ESRD (end stage renal disease) (HCC) 2. Post-operative state Plan 1. S/P RIGHT brachial artery to cephalic vein fistula. Healing well Return to clinic in 3 weeks, at that time will discuss second surgery for ligation of vein branches (tributaries) . Amilcar Hampton MD, FACS Vascular and General Surgery documented i álvaro this encounter Plan of Treatment +--------+ + + + + | Date | Type | Specialty | Care Team | Description | +--------+ + + + + | 07/16/ | Off-Site | Nephrology | Maty Tian | | | 2018 | Visit | | M, DO [address] | | | | | | [place], [address] | | | | | | [place] | | | | | | [id number] | | | | | | | | +--------+ + + + + | 09/25/ | Office | Cardiology | Sheldon Spence | | | 2019 | Visit | | MD [address] | | | | | | [address] | | | | | | [place] | | | | | | [address] | | | | | | | | +--------+ + + + + | 09/25/ | Procedure | Cardiology | | | | 2019 | visit | | | | +--------+ + + + + | 11/28/ | Office | Cardiology | Natlaie Luo DO | | | 2019 | Visit | | [address] | | | | | | [place] | | | | | | [address] | | | | | | | | +--------+ + + + + documented as of this encounter Visit Diagnoses + + | Diagnosis | + + | ESRD (end stage renal disease) (HCC) - Primary End stage renal disease | + + | Post-operative state Other postprocedural status | + + documented in this encounter
--- OUTSIDE RECORDS SUMMARY | ~2019-07-14 | XMS | Encounter Summary ---
Demographics + + + | Address | [address] | | | [place] [address] | + + + | Home Phone | | + + + | Preferred Language | Unknown | + + + | Marital Status | | + + + | Jainism Affiliation | 1041 | + + + | Race | Unknown | + + + | Ethnic Group | Unknown | + + + Author + + + | Author | [facility] | | | and [place] | + + + | Organization | [facility] | | | and [place] | + + + | Address | Unknown | + + + | Phone | Unavailable | + + + Support + + + + + | Name | Relationship | Address | Phone | + + + + + | Lula Kerr | ECON | [address] | | | | | [place] | | | | | [address] | | + + + + + Care Team Providers + +------+ + | Care Kennel Aide Name | Role | Phone | + +------+ + PCP | Unavailable | + +------+ + Encounter Details +--------+ + + + + | Date | Type | Department | Care Team | Description | +--------+ + + + + | 09/22/ | Hospital | [facility] | Gregory Drummond MD | | | 2010 | Encounter | MED CTR XRAY [address] | [address] | | | | | [place] | [place], [place] | | | | | [place] [address] | [address] | | | | | [phone] | [phone] | | | | | | | [...] | Visit | | DO [address] | | | | | | [address] | | | | | | [place] | | | | | | [address] | | | | | | | | +--------+ + + + + | 09/25/ | Office | Cardiology | Sheldon Spence | | | 2019 | Visit | | MD [address] | | | | | | [address] | | | | | | [place] | | | | | | [address] | | | | | | | [...] [place] | | | | | | [address] | | | | | | | [...] Performed At | + + + | [facility] Diagnostic Imaging Department | [facility] | | [address] | [facility] | | ECHOCARDIOGRAPHY, 09/22/2010 | [facility] | | INDICATIONS FOR PROCEDURE: CARDIOMYOPATHY / [...] Transcribed Date/Time: 09/22/2010 | | | 16:03 Program Facilitator: <Electronically Signed by Rosanna | | | MD Isi [facility]> 09/23/10 0650 | | + + + + + | Procedure Note | + + | Marcus May Conversion - 03/15/2014 9:34 AM PDT [facility] | | Diagnostic Imaging Department | | [address] [facility], [place] | | | | | | [...] | Transcribed Date/Time: 09/22/2010 16:03 | | Program Facilitator: | | <Electronically Signed by Rosanna Snowden MD [facility]> 09/23/10 0650 | + + + [...] Performed At | + + + | [facility] Diagnostic Imaging Department | [facility] | | [address] | [facility] | | ECHOCARDIOGRAPHY, 09/22/2010 | DIAG [...] Transcribed Date/Time: 09/22/2010 | | | 16:03 Program Facilitator: <Electronically Signed by Rosanna | | | MD Isi [facility]> 09/23/10 0650 | | + + + + + | Procedure Note | + + | Marcus May - 09/27/2013 7:17 AM [facility] | | Diagnostic Imaging Department | | [address] | | | | | | | [...] | Transcribed Date/Time: 09/22/2010 16:03 | | Program Facilitator: | | <Electronically Signed by Rosanna Snowden MD [facility]> 09/23/10 0650 | + + + [...]
--- OUTSIDE RECORDS SUMMARY | ~2019-07-14 | XMS | Encounter Summary ---
Demographics + + + | Address | [address] | | | [place] [address] | + + + | Home Phone | | + + + | Preferred Language | Unknown | + + + | Marital Status | | + + + | Jehovah'S Witness Affiliation | 1041 | + + + | Race | Unknown | + + + | Ethnic Group | Unknown | + + + Author + + + | Author | [facility] | | | and [place] | + + + | Organization | [facility] | | | and [place] | + + + | Address | Unknown | + + + | Phone | Unavailable | + + + Support + + + + + | Name | Relationship | Address | Phone | + + + + + | Lula Kerr | ECON | [address] | | | | | [place] | | | | | [address] | | + + + + + Care Team Providers + +------+ + | Care Ticket Collector Or Usher Name | Role | Phone | + +------+ + PCP | Unavailable | + +------+ + Encounter Details +--------+ + + + + | Date | Type | Department | Care Team | Description | +--------+ + + + + | 03/24/ | Hospital | [facility] | Gregory Drummond MD | | | 2003 - | Encounter | MED CTR MED ONC | [address] [facility] | | | | | [address] [place] | [place], [place] | | | 04/09/ | | [place] [address] | [address] | | | 2003 | | [phone] | [phone] | | | | | | | [...] | Visit | | DO [address] | | | | | | [address] | | | | | | [place] | | | | | | [address] | | | | | | | | +--------+ + + + + | 09/25/ | Office | Cardiology | Sheldon Spence | | | 2019 | Visit | | MD [address] | | | | | | [address] | | | | | | [place] | | | | | | [address] | | | | | | | [...] [place] | | | | | | [address] | | | | | | | | +--------+ + + + + documented as of this encounter Visit Diagnoses Not on filedocumented in this encounter"
--- OUTSIDE RECORDS SUMMARY | ~2019-07-14 | XMS | Encounter Summary ---
Demographics + + + | Address | [address] | | | [place] [address] | + + + | Home Phone [...] + | Lula Kerr | ECON | [address] | | | | | [place] | | | | | [address] | | + + + + + Care Team Providers + +------+ + | Care Director Hospice Operations Name | Role | Phone | + +------+ + | Gregory Drummond MD | PCP | | + +------+ + Encounter Details +--------+---------+ + + + | Date | Type | Department | Care Team | Description | +--------+---------+ + + + | 12/14/ | Surgery | [facility] | Velasquez Hayes MD | Fistulagram | | 2019 | | MED CTR IR INTRA OP | [address] | | | | | [address] | [place] [facility] [place] | | | | | [place], [place] | [address] | | | | | [address] | | | | | | [phone] | | | +--------+---------+ + + + [...] the Renal diet, please call the Dialysis Cent er at [phone] or the [facility] at [phone]. FISTULOGRAM SITE CARE * If you have [...] concerns after business hours, please call the [facility] at [phone]. YOUR DOCTOR'S OFFICE NUMBER IS Recovery After [...] You can't be awakened Date Last Reviewed: 05/11/[id number] [employer]. [address] [place] [address], [place] [address]. All righ ts reserved. This information is [...] 2018 | Visit | | DO Rolan [address] [place] [address] | | | | | | [address] | | | | | | [place] | | | | | | [id number] | | | | | | | | +--------+ + + + + | 09/25/ | Office | Cardiology | Sheldon Spence | | | 2019 | Visit | | [address] | | | | | | [address] [address] | | | | | | [place] | | | | | | [address] | | | | | | | | +--------+ + + + + | 09/25/ | Procedure | Cardiology | | | | 2019 | visit | | | | +--------+ + + + + | 11/28/ | Office | Cardiology | Natalie Luo DO | | | 2019 | Visit | | [address] | | | | | | [place] | | | | | | [address] | | | | | | | [...] | | | | | | dialysis ([facility]) | | + +--------+ + + + [...] | + + + + + | [facility] | [address] | [place] | [phone] | | [facility] | | [address] | | | - LABORATORY | | | | + + + + + IR Angiogram Upper Extremity Right (12/14/2018 3:46 PM PDT) + + | Specimen | + + | | + + + + -----+ | Narrative | Performed At | + + -----+ | CLINICAL DATA: | [facility] | | Poor fistula flow COMPARISON STUDIES: None. PRIMARY TECHNOLOGY CONSULTANT: | | | Velasquez Hayes MD, PhD, RPVI OPERATIONS:1. Ultrasound-guided right | | | cephalic [...] Patient | | | washeparinized. A 6 Canadian sheath was placed. A 6 x 40 [...] + | Lalo, Rad Results In - 12/14/2018 5:42 PM PDT CLINICAL DATA: Poor fistula flow | | | | COMPARISON STUDIES: None. | | | | PRIMARY TECHNOLOGY CONSULTANT: Velasquez Hayes MD, PhD, RPVI | | [...] Patient was | | heparinized. A 6 Canadian sheath was placed. A 6 x 40 [...] 76 | 70 - 109 mg/dL | [facility] [...] + | [facility] | [address] | [place] | [phone] | | [facility] | | [address] | | | - LABORATORY | | [...] port was used., | | | Starting [facility] 12/14/18 at 1240, For | | | 1 dose, Pre-op | | + +---+ | | | + +---+ + +-------+ +---------+---+ + | lidocaine buffered 0.9% | Given | 12/15/19 | 0.5 mLs | | Surgical | | injection Infiltration, PRN, | | 19 3:07 | | | Site | | Starting [facility] 12/14/18 at 1507 | | PM PDT [...]
--- OUTSIDE RECORDS SUMMARY | ~2019-07-14 | XMS | Encounter Summary ---
Demographics + + + | Address | [address] | | | [place] [address] | + + + | Home Phone | | + + + | Preferred Language | Unknown | + + + | Marital Status | | + + + | Zoroastrian Affiliation | 1041 | + + + | Race | Unknown | + + + | Ethnic Group | Unknown | + + + Author + + + | Author | [facility] | | | and [place] | + + + | Organization | [facility] | | | and [place] | + + + | Address | Unknown | + + + | Phone | Unavailable | + + + Support + + + + + | Name | Relationship | Address | Phone | + + + + + | Lula Kerr | ECON | [address] | | | | | [place] | | | | | [address] | | + + + + + Care Team Providers + +------+ + | Care Animal Caretaker Supervisor Name | Role | Phone | + +------+ + | Gregory Drummond MD | PCP | | + +------+ + Encounter Details +--------+ + + + + | Date | Type | Department | Care Team | Description | +--------+ + + + + | 09/05/ | Anesthesia | [facility] | Preethi Morelos | | | 2019 | Event | [facility] | PMD [address] | | | | | [address] | [address] [place] | | | | | [place] | [address] | | | | | [address] | [phone] | | | | | [phone] | | | +--------+ + + + + Anesthesia Record + + + + + | Procedure Name | Responsible | Anesthesia Start | Anesthesia Stop Time | | | Anesthesiologist | Time | | + + + + + | RIGHT arm AVF (Right | Preethi P Tamy, | 09/05/18 1624 | 09/05/18 1817 | | Arm Upper) | MD | | | + + + + + +----+---+ + + | Da | T | Event | Comment | | te | i | | | | | m | | | | | e | | | +----+---+ + + | 02 | 1 | An Checkout | Pre-use anesthesia machine/equipment checkout. | | /1 | 6 | | | | 2/ | 1 | | | | 20 | 8 | | | | 19 | | | | +----+---+ + + | | 1 | | | | | 6 | | | | | 2 | | | | | 0 | | | +----+---+ + + | | 1 | An Start | | | | 6 | Data | | | | 2 | | | | | 1 | | | +----+---+ + + | | 1 | An Start | Room ready, anesthesia equipment checked, essential drugs & | | | 6 | | equipment available. Patient Identity checked, anesthesia plan | | | 2 | | explained and consent obtained. Patient transported to OR, | | | 4 | | Monitors applied. Reassessment prior to anesthesia | | | | | induction/procedure. | +----+---+ + + | | 1 | an rehan now | | | | 6 | | | | | 2 | | | | | 7 | | | +----+---+ + + | | 1 | Antibiotic | | | | 6 | Given | | | | 2 | | | | | 8 | | | +----+---+ + + | | 1 | Preoxygenat | Oxygen administered, patient sedated, ventilating spontaneously. | | | 6 | ed | | | | 3 | | | | | 0 | | | +----+---+ + + | | 1 | An | | | | 6 | Induction | | | | 3 | | | | | 2 | | | +----+---+ + + | | 1 | An | Smooth IV induction, easy mask airway. LMA placed and well | | | 6 | Intubation | seated. Breathing Circuit attached to LMA. BSEB/ETCO2 | | | 3 | | (auscultation and capnography) and placement confirmed. | | | 3 | | | +----+---+ + + | | 1 | Pre-Procedu | | | | 6 | ral Timeout | | | | 5 | Completed | | | | 5 | | | +----+---+ + + | | 1 | First | | | | 7 | Inc/Proc St | | | | 0 | | | | | 0 | | | +----+---+ + + | | 1 | an rehan now | PACU | | | 8 | | | | | 1 | | | | | 2 | | | +----+---+ + + | | 1 | an stop | | | | 8 | data | | | | 1 | | | | | 2 | | | +----+---+ + + | | 1 | An Stop | Patient handed off to recovery nurse. | | | 1 | | | | | 7 | | | +----+---+ + + +------+ | Meds | +------+ + + + | Name | Total | + + + | propofol | 90 mg | + + + | fentaNYL injection (2 mL) | 100 mcg | + + + | ceFAZolin (ANCEF, KEFZOL) 100 | 2 g | | mg/mL IV syringe 2 g | | + + + | heparin | 5,000 Units | + + + | NS (Infusion) | 500 mL | + + + + + [...] + + + | Pacema | 06/26/18; ADRI; sascha | 06/26/18 0000 by | | | [...] +--------+ + + + | Periph | 09/05/18; 1217; Left; Distal; | 09/05/181217 by | 09/05/181931 by | | eral | Forearm; [id number]-[id number] catheter | Leonard Esquivel RN | Lyn Villanueva RN | | IV | system; 20 gauge; no longer | | | | | indicated, removed per | | | | | policy/procedure, catheter/device | | | | | intact; short term use; | | | | | 09/05/18; 1931 | | | +--------+ + + + | Airway | Placement Date: 09/05/18; | 09/05/181632 by | 09/05/181923 by | | | Placement Time: 1632 (created via | Preethi Morelos, | Lyn Villanueva RN | | | procedure documentation); Mask | MD | | | | Ventilation: EZ; Attempts: 1; | | | | | Airway Type: laryngeal mask; | | | | | Size: 5; Trauma: none; Placement | | | | | Check: exhaled CO2 detection | | | | | device, bilateral chest rise, | | | | | breath sounds equal bilaterally; | | | | | Removal Date: 09/05/18; Removal | | | | | Time: 1923 (not present upon | | | | | arrival to Phase II); Additional | | | | | Comments: Smooth IV induction. | | | | | LMA placed and well seated. | | | | | Secured in place. Breathing | | | | | Circuit attached to LMA. | | | | | BSEB/ETCO2 (auscultation and | | | | | capnography) and placement | | | | | confirmed. | | | +--------+ + + + | Wound | 09/05/18; 1810; Incision; Right; | 09/05/181810 by | 09/05/181931 by | | | arm; 09/05/18; 1931 | Hermelinda Gilmore RN | Lyn Villanueva RN | +--------+ + + + documented in [...] | Visit | | DO Rolan [address] [place] [address] | | | | | | [address] | | | | | | [place] | | | | | | [address] | | | | | | | | +--------+ + + + + | 09/25/ | Office | Cardiology | Sheldon Spence | | | 2019 | Visit | | MD [address] | | | | | | [address] | | | | | | [place] | | | | | | [phone] | | | | | | | [...] [place] | | | | | | [address] | | | | | | | | +--------+ + + + + documented as of this encounter Procedures + +--------+ + + + | Procedure Name | Priori | Date/Time | Associated Diagnosis | Comments | | | ty | | | | + +--------+ + + + | ANE AIRWAY NOTE | Routin | 09/05/2018 | | Results for this | | | e | 4:47 PM | | procedure are in the | | | | PST | | results section. | + +--------+ + + + documented in this encounter Results Anesthesia Airway Note (09/05/2018 4:47 PM PST) + + + | Narrative | Performed At | + + + | Preethi Morelos MD 09/05/2018 16:47 Anesthesia Airway | | | Placement 09/05/2018 16:33 Preprocedure check: patient identified, | | | oxygen, airway assessed, patient reassessment prior to induction, | | | airway equipment checked and suction Mask ventilation: easy | | | Attempts: 1 Airway type: laryngeal mask Size: 5 Cuffed: cuffed | | | Route, reference point: center of mouth Tube secured with: adhesive | | | tape Trauma: none Tube placement verification: carbon dioxide | | | detection, equal bilateral breath sounds and bilateral chest rise | | | Performing provider: PREETHI MORELOS Comments: Smooth IV | | | induction. LMA placed and well seated. Secured in place. Breathing | | | Circuit attached to LMA. BSEB/ETCO2 (auscultation and | | | capnography) and placement confirmed. Electronically Signed by: | | | Preethi Morelos MD | | | ESig date/time: 09/05/2018 16:47 | | + + + + + | Procedure Note | + + | Preethi Morelos MD - 09/05/2018 4:47 PM PST Anesthesia Airway | | Placement09/05/2018 16:33Preprocedure check: patient identified, oxygen, airway assessed, | | patient reassessment prior to induction, airway equipment checked and suctionMask | | ventilation: easyAttempts: 1Airway type: laryngeal maskSize: 5Cuffed: cuffedRoute, | | reference point: center of mouthTube secured with: adhesive tapeTrauma: noneTube | | placement verification: carbon dioxide detection, equal bilateral breath sounds and | | bilateral chest risePerforming provider: PREETHI MORELOS PComments: Smooth IV | | induction.LMA placed and well seated. Secured in place.Breathing Circuit attached to | | LMA. BSEB/ETCO2 (auscultation and capnography) and placement confirmed.Electronically | | Signed by: MD Tiffanie Landaverde date/time: 09/05/2018 | | 16:47 | |Trauma: none | |Tube placement verification: carbon dioxide detection, equal bilateral breath sounds and bi lateral chest rise | |Performing provider: PREETHI MORELOS | | | |Comments: Smooth IV induction. | |LMA placed and well seated. Secured in place. | |Breathing Circuit attached to LMA. | |BSEB/ETCO2 (auscultation and capnography) and placement confirmed. | | | |Electronically Signed by: MD Tiffanie Landaverde date/time : 09/05/2018 16:47 | | | + + documented in this encounter Visit Diagnoses Not on filedocumented in this encounter Administered Medications + +--------+ +------+------+------+ | Medication Order | MAR | Action | Dose | Rate | Site | | | Action | Date | | | | + +--------+ +------+------+------+ | ceFAZolin (ANCEF, KEFZOL) 100 | Given | 09/05/19 | 2 g | | | | mg/mL IV syringe 2 g 2 g, | | 19 4:28 | | | | | Intravenous, Administer over 30 | | PM PST | | | | | Minutes, Prior to Incision, | | | | | | | Starting Tue09/05/18 at 0126, For | | | | | | | 1 dose, administer within 1 hour | | | | | | | of incision, Pre-op, | | | | | | | Indications: Surgical Prophylaxis | | | | | | + +--------+ +------+------+------+ +---+---+ | | | +---+---+ + +-------+ +--------+---+---+ | fentaNYL (PF) injection | Given | 09/05/19 | 50 mcg | | | | Intravenous, PRN, Pain, Starting | | 19 4:32 | | | | | Tue09/05/18 at 1629, Anesthesia | | PM PST | | | | | Intra-op | | | | | | + +-------+ +--------+---+---+ +-------+ +--------+---+---+ | Given | 09/05/19 | 50 mcg | | | | | 19 4:29 | | | | | | PM PST | | | | +-------+ +--------+---+---+ +---+---+ | | | +---+---+ + +-------+ +--------+---+---+ | heparin 1,000 units/mL | Given | 09/05/19 | 5,000 | | | | injection Intravenous, PRN, | | 19 5:28 | Units | | | | Starting 09/05/18 at 1728, | | PM PST | | | | | Anesthesia Intra-op | | | | | | + +-------+ +--------+---+---+ +---+---+ | | | +---+---+ + +-------+ +-------+---+---+ | propofol (DIPRIVAN) injection | Given | 09/05/19 | 90 mg | | | | Intravenous, PRN, Starting Tue | | 19 4:32 | | | | | 09/05/18 at 1632, Anesthesia | | PM PST | | | | | Intra-op | | | | | | + +-------+ +-------+---+---+ +---+---+ | | | +---+---+ + +---------+ +---+---+---+ | sodium chloride 0.9% (NS) | New Bag | 09/05/19 | | | | | infusion Intravenous, CONTINUOUS | | 19 3:50 | | | | | PRN, Starting Michael 09/05/18 at | | PM PST | | | | | 1550, Anesthesia Intra-op | | | | | | + +---------+ +---+---+---+ +---+---+ | | | +---+---+ documented in this encounter"
--- OUTSIDE RECORDS SUMMARY | ~2019-07-14 | XMS | Encounter Summary ---
Demographics + + + | Address | [address] | | | [place] [address] | + + + | Home Phone [...] + + + + + | Lula eKrr | ECON | [address] | | | | | [place] | | | | | [address] | | + + + + + Care Team Providers + +------+ + | Care Online Marketing Strategist Name | Role | Phone | + [...] | | [place] | [place] [address] | | | | | [address] | [phone] | | | | | [phone] | | | +--------+ + + + [...] 2018 | Visit | | DO Rolan [address] [place] [address] | | | | | | [address] | | | | | | [place] | | | | | | [phone] | | | | | | | | +--------+ + + + + | 09/25/ | Office | Cardiology | Sheldon Spence | | | 2019 | Visit | | MD [address] | | | | | | Aaron Caro [facility] | | | | | | [place] | | | | | | [phone] | | | | | | | [...] [place] | | | | | | [address] | | | | | | | [...]
--- OUTSIDE RECORDS SUMMARY | ~2019-07-14 | XMS | Encounter Summary ---
Demographics + + + | Address | [address] | | | [place] [address] | + + + | Home Phone [...] + | Lula Kerr | ECON | [address] | | | | | [place] | | | | | [address] | | + + + + + Care Team Providers + +------+ + | Care Waterproofer Helper Name | Role | Phone | [...] | stage renal | [address] | , [address] | | | | | disease) | [place] [address] | [address] | | | | | ([facility]) | [address] [place] | [place], | | | | | Procedures | [place], [place] | [place] [address] | | | | | 08/09??> | [address] | Phone: | | | | | PEND | Phone: | [phone] | | | | | LESLEYK | [phone] | Fax: | | | | | REVIEW | Fax: | [phone] | | | | | | [phone] | | +--------+ + + + + + Encounter Details +--------+ + + + + | Date | Type | Department | Care Team | Description | +--------+ + + + + | 07/31/ | Orders Only | [facility] [place] | Silvina Alcantar W, | ESRD (end stage | | 2019 | | NEPHROLOGY [address] | renal disease) ([facility]) | | | | [address] | [address] [place] | (Primary Dx) | | | | [place], [place] | [place] [address] | | | | | [address] | [phone] | | | | | [phone] | | | +--------+ + + + [...] + documented as of this encounter Progress Deanne Ramírez RN - 07/31/2018 9:[address] Field mcintyre Vein mapping scheduled 08/17/18 1600 - message left a [employer] informing of transportation need. Lula informed of appointment. Electronically signed by Deanne Rice RN at 019 11:22 AM PSTdocumented in this encounter Plan of Treatment +--------+ + + + + | Date | Type | Specialty | Care Team | Description | +--------+ + + + + | 07/16/ | Off-Site | Nephrology | Maty Tian | | | 2018 | Visit | | DO Rolan [address] [place] [address] | | | | | | [address] | | | | | | [place] | | | | | | [address] | | | | | | | | +--------+ + + + + | 09/25/ | Office | Cardiology | Sheldon Spence | | | 2019 | Visit | | MD [address] | | | | | | [address] | | | | | | [place] | | | | | | [phone] | | | | | | | [...] [place] | | | | | | [address] | | | | | | | | +--------+ + + + + + + +--------+ + + | Name | Type | Priori | Associated Diagnoses | Order Schedule | | | | ty | | | + + +--------+ + + | * Ó[facility]CM[facility] General | Outpatient | Routin | ESRD (end stage | Ordered: 07/31/2018 | | Surgery - AMB | Referral | e | renal disease) (HCC) | | | Referral | | | | | + + +--------+ + + documented as of this encounter Results VAS Upper Extremity Vein [...] + | Lalo, Rad Results In - 08/17/2018 5:53 PM PST [...]
--- OUTSIDE RECORDS SUMMARY | ~2019-07-14 | XMS | Encounter Summary ---
Demographics + + + | Address | [address] | | | [place] [address] | + + + | Home Phone [...] + | Lula Kerr | ECON | [address] | | | | | [place] | | | | | [address] | | + + + + + Care Team Providers + +------+ + | Care Pipe And Boiler Covers Supervisor Name | Role | Phone | + +------+ + | Gregory Drummond MD | PCP | | + +------+ + Encounter Details +--------+ + + + + | Date | Type | Department | Care Team | Description | +--------+ + + + + | 08/17/ | Hospital | [facility] | Katharine Silvina W, | ESRD (end stage | | 2019 | Encounter | [facility] | [address] | renal disease) ([facility]) | | | | [address] [place] | [address] [place] | | | | | [place], [place] | [place] [address] | | | | | [address] | [phone] | | | | | [phone] | | | +--------+ + + + [...] 2018 | Visit | | DO Rolan [address] [place] [address] | | | | | | [address] | | | | | | [place] | | | | | | [address] | | | | | | | | +--------+ + + + + | 09/25/ | Office | Cardiology | Sheldon Spence | | | 2019 | Visit | | MD [address] | | | | | | Aaron Caro [facility] [[email or web address]] | | | | | | [place] | | | | | | [address] | | | | | | | [...] [place] | | | | | | [address] | | | | | | | [...]
--- OUTSIDE RECORDS SUMMARY | ~2019-07-14 | XMS | Encounter Summary ---
Demographics + + + | Address | [address] | | | [place] [address] | + + + | Home Phone | | + + + | Preferred Language | Unknown | + + + | Marital Status | | + + + | Mandaen Affiliation | 1041 | + + + | Race | Unknown | + + + | Ethnic Group | Unknown | + + + Author + + + | Author | [facility] | | | and [place] | + + + | Organization | [facility] | | | and [place] | + + + | Address | Unknown | + + + | Phone | Unavailable | + + + Support + + + + + | Name | Relationship | Address | Phone | + + + + + | Lula Kerr | ECON | [address] | | | | | [place] | | | | | [address] | | + + + + + Care Team Providers + +------+ + | Care Golf Stud Riveter Name | Role | Phone | + +------+ + | Gregory Drummond MD | PCP | | + +------+ + Encounter Details +--------+ + + + + | Date | Type | Department | Care Team | Description | +--------+ + + + + | 07/11/ | Documentati | [facility] | Ursulatasia Maty | | | 2018 | on | NEPHROLOGY [address] | M, DO [address] | | | | | [address] | [place], [address] | | | | | [place], [place] | [place], [place] | | | | | [address] | [address] | | | | | [phone] | | | +--------+ + + + [...] + documented as of this encounter Progress Lesli Hines - 07/11/2018 11:03 AM PSTComplete "clip" admissions packet was manually fa xed to [facility] Admissions for patient to start hemodialysis at [facility] on . documented in this encounter Plan of Treatment +--------+ + + + + | Date | Type | Specialty | Care Team | Description | +--------+ + + + + | 07/16/ | Off-Site | Nephrology | Maty Tian | | | 2018 | Visit | | DO Rolan [address] | | | | | | [address] | | | | | | [place] | | | | | | [address] | | | | | | | | +--------+ + + + + | 09/25/ | Office | Cardiology | Sheldon Spence | | | 2019 | Visit | | MD [address] | | | | | | [address] | | | | | | [place] | | | | | | [address] | | | | | | | [...] [place] | | | | | | [address] | | | | | | | | +--------+ + + + + documented as of this encounter Visit Diagnoses Not on filedocumented in this encounter
--- OUTSIDE RECORDS SUMMARY | ~2019-07-14 | XMS | Encounter Summary ---
Demographics + + + | Address | [address] | | | [place] [address] | + + + | Home Phone | | + + + | Preferred Language | Unknown | + + + | Marital Status | | + + + | Advent Affiliation | 1041 | + + + | Race | Unknown | + + + | Ethnic Group | Unknown | + + + Author + + + | Author | [facility] | | | and [place] | + + + | Organization | [facility] | | | and [place] | + + + | Address | Unknown | + + + | Phone | Unavailable | + + + Support + + + + + | Name | Relationship | Address | Phone | + + + + + | Lula Kerr | ECON | [address] | | | | | [place] | | | | | [address] | | + + + + + Care Team Providers + +------+ + | Care Surface Supply Breathing Apparatus Name | Role | Phone | + [...] | | | | disease) on | [place] [address] | [address] | | | | | dialysis | [address] [place] | [place], | | | | | (HCC) | [place], [place] | [place] [address] | | | | | Vascular | [address] | Phone: | | | | | dialysis | Phone: | [phone] | | | | | catheter in | [phone] | Fax: | | | | | place ([facility]) | Fax: | [phone] | | | | | Procedures | [phone] | | | | | | [place] [facility] | | | | | | | CTR VAD | | | | | | | W/SUBQ | | | | | | | PORT/[facility] | | | | | | | CTR/PRPH | | | | | | | INSJ [place] | | | | | | | [...] | NEPHROLOGY [address] | [address] | renal disease) on | | | | [address] | [address] [place] | dialysis (HCC) | | | | [place], [place] | [place] [address] | (Primary Dx); | | | | [address] | [phone] | Vascular dialysis | | | | [phone] | | catheter in place | | [...] | Visit | | DO Rolan [address] [place] [address] | | | | | | [address] | | | | | | [place] | | | | | | [address] | | | | | | | | +--------+ + + + + | 09/25/ | Office | Cardiology | Sheldon Spence | | | 2019 | Visit | | MD [address] | | | | | | [address] | | | | | | [place] | | | | | | [address] | | | | | | | [...] [place] | | | | | | [address] | | | | | | | [...] | | Referral | | | dialysis ([facility]) | | | | | | Vascular dialysis | | | | | | catheter in place | | | | | | ([facility]) | | + + +--------+ + + documented as of this encounter Visit Diagnoses + + | Diagnosis | + + | ESRD (end stage renal disease) on dialysis (HCC) - Primary End stage renal disease | + + | Vascular dialysis catheter in place ([facility]) Renal dialysis status | + + documented in this encounter"
--- OUTSIDE RECORDS SUMMARY | ~2019-07-14 | XMS | Clinical Summary ---
Demographics + + + | Address | [address] | | | [place] [address] | + + + | Home Phone | | + + + | Preferred Language | Unknown | + + + | Marital Status | | + + + | Yazidi Affiliation | 1041 | + + + | Race | Unknown | + + + | Ethnic Group | Unknown | + + + Author + + + | Author | [facility] (Historical as of | | | 03-10-19) | + + + | Organization | [facility] ([facility]ical as of | | | 03-10-19) | + + + | Address | Unknown | + + + | Phone | Unavailable | + + + Support + + + + + | Name | Relationship | Address | Phone | + + + + + | Lula Lu | ECON | [address] | | | | | [place] | | | | | [address] | | + + + + + Care Team Providers + +------+ + | Care Navy Material Inspector Name | Role | Phone | + [...] + + + | VT (ventricular tachycardia) ([facility]) | 11/27/2018 | + + + | 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 | | [id number] Risk Score: 5 - 7.2% Estimated Stroke [...] +------+-------+ + | MEDICARE | MEDICA | [id number] | | | [address] | | | RE | | | | [place] [address] | | | IP-OP | | | | | + +--------+ +------+-------+ + | UNITED HEALTHCARE | UNITED | [id number] | | | | | | | | | | | | | HEALTH | | | | | | | CARE - | | | | | | | AARP | | | | | + +--------+ +------+-------+ + | /[employer] [facility] | YELLOW | [id number] | | | | | PLANS | [...] | Self | [birth year] | Home: | [address] | | | al/Fam | | [phone] | [phone] | [place] | | | eliane | | | [phone] | [phone] | + +--------+ +--------+ + +
--- OUTSIDE RECORDS SUMMARY | ~2019-07-14 | XMS | Encounter Summary ---
Demographics + + + | Address | [address] | | | [place] [address] | + + + | Home Phone | | + + + | Preferred Language | Unknown | + + + | Marital Status | | + + + | Catholic Affiliation | 1041 | + + [...] + | Lula Kerr | ECON | [address] | | | | | [place] | | | | | [address] | | + + + + + Care Team Providers + +------+ + | Care Telephone Order Supervisor Name | Role | Phone | [...] [place] | | | | | | [address] | | | | | | [phone] | | | +--------+ + + + [...] 2018 | Visit | | DO Rolan [address] [place] [address] | | | | | | [place], [...] [place] | | | | | | [address] | | | | | | | [...] [place] | | | | | | [address] | | | | | | | | +--------+ + + + + documented as of this encounter Visit Diagnoses Not on filedocumented in this encounter"
--- OUTSIDE RECORDS SUMMARY | ~2019-07-14 | XMS | Encounter Summary ---
Demographics + + + | Address | [address] | | | [place] [address] | + + + | Home Phone | | + + + | Preferred Language | Unknown | + + + | Marital Status | | + + + | Yarsani Affiliation | 1041 | + + + [...] + | Lula Kerr | ECON | [address] | | | | | [place] | | | | | [address] | | + + + + + Care Team Providers + +------+ + | Care Cable Worker Helper Name | Role | Phone | + +------+ + | Gregory Drummond MD | PCP | | + +------+ + Reason for Visit + + + | Reason | Comments | + + + | Hospital Follow-up | | + + + Encounter Details +--------+ + + + + | Date | Type | Department | Care Team | Description | +--------+ + + + + | 11/03/ | Telephone | [facility] | Cici Jon, | Hospital Follow-up | | 2019 | | [facility] | PharmD [address] | | | | | [address] [place] | [address] [place] | | | | | [place] [address] | [place] [address] | | | | | [phone] | [phone] | | +--------+ + + + + [...] | Visit | | DO Rol[address] | | | | | | [address] | | | | | | [place] | | | | | | [address] | | | | | | | | +--------+ + + + + | 09/25/ | Office | Cardiology | Sheldon Spence | | | 2019 | Visit | | MD [address] | | | | | | [address] | | | | | | [place] | | | | | | [address] | | | | | | | [...] [place] | | | | | | [address] | | | | | | | [...]
--- OUTSIDE RECORDS SUMMARY | ~2019-07-14 | XMS | Encounter Summary ---
Demographics + + + | Address | [address] | | | [place] [address] | + + + | Home Phone [...] + | Lula Kerr | ECON | [address] | | | | | [place] | | | | | [address] | | + + + + + Care Team Providers + +------+ + | Care Artist Suspect Name | Role | Phone | + [...] | | | | | | | ([facility]) Acute | | | | | | [...] | | | | | | | ([facility]) | | | | | | [...] W/ | | | | [address] | [facility] | [place] | | | | [place], [place] | [place] [address] | | | | | [address] | [phone] | | | | | [phone] | | | +--------+---------+ + + + [...] documented in this encounter Discharge Summaries Bruce Alcantra MD - 07/08/2018 11:33 AM PSTFormatting of [...] - Will continue dialysis, planned f/u at [place] dialysis unit, unclear if he will ever [...] monitor nutrition Code Status: No Code. Disposition: [facility] Discharge Condition: Stable Somewhat distant breath sounds throughout, scattered rhonchi, no increased work of breathin g Heart RRR Abd soft, obese, NT Ext WWP, 3-4 cm pitting ochoa Contact information for after-discharge care Placement Destination [facility] . Specialty: Long Term Facility Contact information: [place] [address] [...] signed by: Bruce Alcantar MD, 07/08/2018 13:31 [facility] documented in this encounter Discharge Instructions Patient [...] lost his temper and started cussing at [employer] because they "have already gone over this medication list several times with other staff members." Patient and his both raised their voices at [employer] then cut interview short after repeatedly telling [...] garding this. The drug is listed as "[employer] study drug" 1 tab by mouth once daily on Dr. Johana Gongora edication list. It is unknown if/how the patient is taking. Dr. Vaughn office told us it was highly confidential therefore there is no information re garding this in the patients chart notes. Ertugliflozin vs. Placebo is listed on the patients GETTERING FILAMENT MACHINE OPERATOR list under trail drug. However, Ertugliflozin has been approved by the FDA. Ertugliflozin is manufactured by [employer]. Best possible GETTERING FILAMENT MACHINE OPERATOR medication list after pharmacy review: PT [...] performed and electronically signed by Ashley Farmer, Radio Recorder 07/06 16:05 Reviewed by Wing Torres PharmShola 07/07/2018 16:57 ilvina Alcantar M D - 07/07/2018 10:46 AM PST [facility] NEPHROLOGY progress note Patient: David Kerr Jr. [...] today. -Will arrange for outpatient HD in [place]. -At discharge, recommend continuing Lasix at 160 mg PO BID. 2. Hypoxia due to pulmonary edema / pulmonary hypertension / EVITA. Remains on oxygen by nasal cannula. EVITA: Poor tolerance to CPAP. Will continue to use nasal cannula at nighttime for EVITA. 3. Anemia. Last Hb stable. 4. Dispo. Anticipate SNF placement in [place]. 24 HR EVENTS UOP 1050 mL, on [...] Silvina Alcantar MD Electronically signed: 07/07/2018 10:46 [facility] NEPHROLOGY Silvina South MD - 07/06/2018 10:59 AM PST [facility] NEPHROLOGY progress note Patient: David Kerr Jr. [...] Silvina Alcantar MD Electronically signed: 07/06/2018 10:59 [facility] NEPHROLOGY Marilnyn Cr COIN COUNTER AND WRAPPER - 07/06/2018 9:25 AM Yahir met with Elias and Lula to complete advance directive with Elias, following POLST conversation with Palliative Care SWIMMING POOL SERVICEPERSON. Elias named Lula as his POA for healthcare and eldest son David SHETH ([facility]) his alternate. said he would be a ble to notarize the document 07/07. Bruce South MD - 07/05/2018 8:[address] [facility] PMG Hospitalist Progress Note David Kerr [...] as outlined above. Bruce Alcantar 07/05/2018 20:08 [facility] Ofelia Pandey AR SALES OPERATIONS ANALYST - 07/05/2018 5:21 PM PSTBrjanusz Palliative Care note: FATOUMATA Jimenez Briefly followed [...] Directive will be completed with palliative care COIN COUNTER AND WRAPPER Marilynn Garcia. Brannon, Silvina Moses MD - 07/05/2018 9:32 AM PST [facility] NEPHROLOGY progress note Patient: David Kerr Jr. [...] Silvina Alcantar MD Electronically signed: 07/05/2018 9:32 [facility] NEPHROLOGY Ofelia Pandey AR SALES OPERATIONS ANALYST - 07/04/2018 3:56 PM PST [facility] PALLIATIVE CARE PROGRESS NOTE Pt. Name/Age/: David Kerr Jr. 72 y.o. 1945 Med. Record Number: [id number] Palliative Accountant Tax: FATOUMATA Ash Palliative Care Team: ENZO Tobin [...] acute tubu lar necrosis and septic shock. Ground Support Agent Silvina Alcantar MD initiated hemodialysis on 06/28/18 (Left femora HD catheter place on 06/28/18) and indicates she suspects ischemia / cardio renal syndrome. It is not clear at this time whether renal function will improve or half-way dialysis will be needed / recommended. Interim HPI: It appears that half-way dialysis will in fact be needed for [...] defibrilator ; Surgeon: Meredith forbes MD; Location: [facility] MEDICAL PROCEDURE UNIT pacemaker medtronic SHUNT PLACEMENT/INSERTION Right 07/03/2018 Procedure: INSERTION SHUNT HEMODIALYSIS W/ [place]; Surgeon: Melba Wallace MD; L ocation: [facility] MAIN OR History reviewed. No pertinent [...] Assessments Symptom Assessment Tool (based on Modified [facility] Symptom Assessment Scale) [x] Unable or incomplete [...] christina Jr, and daughter Cesia, palliative care SWIMMING POOL SERVICEPERSONGwendolyn Jimenez and COIN COUNTER AND WRAPPER Marilynn Garcia. Elias i s unable to [...] under direction of the Provider: Palliative Care Facility Practice Specialist: Fredi Tidwell Palliative Care Lump Room Supervisor: ENZO Tobin * I have personally reviewed the information with the patient and/or family and concur with the information recorded by fellow prepared foods service team member signed above. Palliative Care Provider: FATOUMATA Ash Total time of approximately 55 minutes ([id number], [phone]) was spent with the patient a nd/or patient's family, and/or on the patient's floor/unit, of which more than 50% was spent counseling and/or coordination the patient's care as outlined above. Topics Discussed: See discussion notes under Discussion and Plan section. Electronically signed by: FATOUMATA uHghes, 07/04/2018 15:56 AGUIRRE: AFTT - adult failure to thrive SWIMMING POOL SERVICEPERSON - advanced registered nurse practitioner BiPAP - bilevel positive airway pressure BP- blood pressure CN-cranial nerves CPAP-continuous positive airway pressure dc'd - discharged or discontinued EOMI-extraocular movement intact HR-heart rate HSM-hepatosplenomegaly LE-lower extremity MD- doctor of medicine p3Hpe-ovqewd saturation PERRLA-pupils equal, round, reactive to light and accommodation RR-respiratory rate S1 S2- 1st and 2nd heart sounds T-temperature JVD-jugular vein distension Silvina South MD - 07/04/2018 12:13 PM PST [facility] NEPHROLOGY progress note Patient: David Kerr Jr. [...] Silvina Alcantar MD Electronically signed: 07/04/2018 12:14 [facility] NEPHROLOGY Cristal Denson, Senior Process Control Tech - 07/04/2018 11:19 AM PSTFormatting of this [...] orally famotidine 20 mg q24hr Cristal Haro, Senior Process Control Tech 07/04/2018 11:20 [facility] IV TO PO Collaborative Practice Protocol Bruce Stark MD - 07/04/2018 7:04 AM PSTFormatting of this note might be different from tati mcdonough. [facility] PM Hospitalist Progress Note David Raimei [...] as outlined above. Bruce Alcantar 07/04/2018 7:05 [facility] Cristal Denson, Senior Process Control Tech - 07/03/2018 1:22 PM PSTFormatting of this [...] ADJUSTMENT PROTOCOL Electronically signed by: Cristal Haro, Senior Process Control Tech 07/03/2018 13:22Electronicall y signed by Cristal Haro, Senior Process Control Tech at 07/03/2018 1:31 PM Silvina South MD - 07/03/2018 10:00 AM PST [facility] NEPHROLOGY progress note Patient: David Kerr Jr. [...] Silvina Alcantar MD Electronically signed: 07/03/2018 10:00 [facility] NEPHROLOGY asey, Melba Bolaños MD - 07/03/2018 9:12 AM PST [facility] --[place], [place] General Surgery Team Hospital Day: 8 [...] Signed by: Melba Wallace MD, 07/03/2018 9:12 [facility] Chava Morales DO - 07/03/2018 7:30 AM PSTFormatting of this note mi ght be different from the original. [place] HOSPITALIST PROGRESS NOTE Patient: David Kerr Jr. : 1945: Age: 72 y.o. MedRec: [id number] Admission date: 06/26/2018 Hospital day # : [...] see his primary care provider at the [place] [facility] and complained of generalize d swelling [...] would benefit from outpatient follow-up with a youth nutritional monitor # Moderate protein calorie malnutrition: The patient [...] tablet 50 mg 50 mg Oral Nightly aMbel Jaimes MD 50 mg at 07/02/182034 Current [...] and affect Chava Werner DO 07/03/2018 7:30 [facility] Portions of this chart may have been created with [employer] voice recognition software. Occasi onal wrong-word or sound-alike substitutions may have occurred due to the inherent al itations of voice recognition software. Please read the chart carefully and recognize, using context, where these substitutions have occurred Silvina South MD - 07/02/2018 11:44 AM PST [facility] NEPHROLOGY progress note Patient: David Kerr Jr. [...] Silvina Alcantar MD Electronically signed: 07/02/2018 11:44 [facility] NEPHROLOG[facility] Chava Morales DO - 07/02/2018 7:15 AM PST [facility] [place] [place] HOSPITALIST PROGRESS NOTE Patient: David Kerr Jr. : 1945: Age: 72 y.o. MedRec: [id number] Admission date: 06/26/2018 Hospital day # : [...] see his primary care provider at the [facility] and complained of generalize d swelling [...] would benefit from outpatient follow-up with a youth nutritional monitor # Moderate protein calorie malnutrition: The patient [...] and affect Chava Werner DO 07/02/2018 7:15 [facility] Portions of this chart may have been created with [employer] voice recognition software. Occasi onal wrong-word or sound-alike substitutions may have occurred due to the inherent al itations of voice recognition software. Please read the chart carefully and recognize, using context, where these substitutions have occurred Silvina South MD - 07/01/2018 11:09 AM PST [facility] NEPHROLOGY progress note Patient: David Kerr Jr. [...] Silvina Alcantar MD Electronically signed: 07/01/2018 11:09 [facility] NEPHROLOGY Chava Morales DO - 07/01/2018 7:29 AM PST [facility] [place] [facility] PROGRESS NOTE Patient: David Kerr Jr. : 1945: Age: 72 y.o. MedRec: [id number] Admission date: 06/26/2018 Hospital day # : [...] see his primary care provider at the [facility] and complained of generalize d swelling [...] would benefit from outpatient follow-up with a youth nutritional monitor # Moderate protein calorie malnutrition: The patient [...] Neuro: answering questions appropriately. Following all commands. trimming department blocker grossly intact, no f ocal weakness or sensory deficits Chava Werner DO 07/01/2018 7:29 [facility] Portions of this chart may have been created with [employer] voice recognition software. Occasi onal wrong-word or sound-alike substitutions may have occurred due to the inherent al itations of voice recognition software. Please read the chart carefully and recognize, using context, where these substitutions have occurred Silvina South MD - 06/30/2018 11:54 AM PST [facility] NEPHROLOGY progress note Patient: David Kerr Jr. [...] Silvina Alcantar MD Electronically signed: 06/30/2018 11:54 [facility] NEPHROLOGY Chava Morales DO - 06/30/2018 7:11 AM PST [place] HOSPITALIST PROGRESS NOTE Patient: David Kerr Jr. : 1945: Age: 72 y.o. MedRec: [id number] Admission date: 06/26/2018 Hospital day # : [...] see his primary care provider at the [place] [facility] and complained of generalize d swelling [...] would benefit from outpatient follow-up with a youth nutritional monitor # Moderate protein calorie malnutrition: The patient [...] Value Units Date/Time Culture, Respiratory, Lower, Smear [[id number]] Collected: 06/27/18 0938 Order Status: Completed Lab [...] Forgetful. Have to repeat information multiple time. trimming department blocker grossly intact, no focal we akness or sensory deficits Chava Werner DO 06/30/2018 7:11 [facility] Portions of this chart may have been created with [employer] voice recognition software. Occasi onal wrong-word or sound-alike substitutions may have occurred due to the inherent al itations of voice recognition software. Please read the chart carefully and recognize, using context, where these substitutions have occurred Silvina South MD - 06/29/2018 9:22 AM PST [facility] NEPHROLOGY progress note Patient: David Kerr Jr. [...] Silvina Alcantar MD Electronically signed: 06/29/2018 9:22 [facility] NE[facility]ROLOG[facility] Chava Morales DO - 06/29/2018 7:15 AM PST [facility] [place] HOSPITALIST PROGRESS NOTE Patient: David Kerr Jr. : 1945: Age: 72 y.o. MedRec: [id number] Admission date: 06/26/2018 Hospital day # : [...] see his primary care provider at the [facility] and complained of generalize d swelling [...] would benefit from outpatient follow-up with a youth nutritional monitor # Moderate protein calorie malnutrition: The patient [...] Value Units Date/Time Culture, Respiratory, Lower, Smear [[id number]] Collected: 06/27/18 0938 Order Status: Completed Lab Status: Preliminary result Updated: 06/28/18827 Specimen: Body Fluid from Sputum, Expectorated Culture 1+ Usual Respiratory Homer Gram Stain Result 3+ White Blood Cells 2+ Epithelial cells 1+ Gram positive cocci 1+ Gram negative rods Respiratory Virus Panel, NAAT [[id number]] Collected: 06/26/182358 Order Status: Sent Lab Status: In process Updated: 06/27/18 0002 Specimen: Tissue from Nasopharynx Respiratory pathogen panel, NAAT [[id number]] Collected: 06/26/182358 Order Status: Completed Lab Status: [...] pneumoniae DNA Not Detected Narrative: Performed at: [address] [place] [id number] Traveling Sales Executive: Salazar Ocampo MD, Phone: [phone] Legionella, Ag, EIA, Qual, Urine [[id number]] Collected: 06/26/18 1501 Order Status: Completed Lab Status: Final result Updated: 06/27/18 1311 Specimen: Urine from Urine, Indwelling Catheter L. pneumophila Serogp 1 Ur Ag Negative Comment: Presumptive negative for L. pneumophila serogroup 1 antigen in urine, suggesting no recent or current infection. Legionnaires' disease cannot be ruled out since other serogroups and species may also cause disease. Narrative: Performed at: [address] [id number] Traveling Sales Executive: Salazar Ocampo MD, Phone: [phone] Culture, Urine [[id number]] Collected: 06/26/18 1500 Order Status: Completed Lab Status: Final result Updated: 06/28/18 0916 Specimen: Urine from Urine, Clean Catch Culture 6,000 CFU/ml Mixed Gram Positive Homer Comment: Suggests contamination with urogenital or skin homer. No further work-up to follow. Culture, MRSA [[id number]] Collected: 06/26/18 1312 Order Status: Completed Lab Status: Final result Updated: 06/27/18 0724 Specimen: Tissue from Nares Culture Negative for MRSA by chromogenic agar method 3+ Coagulase positive Staphylococcus Culture, Blood [[id number]] (Normal) Collected: 06/26/18 1022 Order Status: Completed Lab Status: Preliminary result Updated: 06/26/18 2231 Specimen: Blood from Peripheral Blood Culture No growth: Monitored continually by instrument for 5 days Culture, Blood [[id number]] (Normal) Collected: 06/26/18 0924 Order Status: Completed [...] Forgetful. Have to repeat information multiple time. trimming department blocker grossly intact, no focal we akness or sensory deficits Chava Werner DO 06/29/2018 7:15 [facility] Portions of this chart may have been created with [employer] voice recognition software. Occasi onal wrong-word or sound-alike substitutions may have occurred due to the inherent al itations of voice recognition software. Please read the chart carefully and recognize, using context, where these substitutions have occurred Silvina South MD - 06/28/2018 9:50 AM PST [facility] NEPHROLOGY progress note Patient: David Kerr Jr. [...] Silvina Alcantar MD Electronically signed: 06/28/2018 9:52 [facility] NEPHROLOGY Chava Morales DO - 06/28/2018 7:07 AM PST [facility] [place] HOSPITALIST PROGRESS NOTE Patient: David Kerr Jr. : 1945: Age: 72 y.o. MedRec: [id number] Admission date: 06/26/2018 Hospital day # : [...] see his primary care provider at the [facility] and complained of generalize d swelling [...] would benefit from outpatient follow-up with a youth nutritional monitor # Moderate protein calorie malnutrition: The patient [...] Value Units Date/Time Culture, Respiratory, Lower, Smear [[id number]] Collected: 06/27/18 0938 Order Status: Completed Lab Status: Preliminary result Updated: 06/27/18 1342 Specimen: Body Fluid from Sputum, Expectorated Gram Stain Result 3+ White Blood Cells 2+ Epithelial cells 1+ Gram positive cocci 1+ Gram negative rods Respiratory Virus Panel, NAAT [[id number]] Collected: 06/26/18 235 Order Status: Sent Lab Status: In process Updated: 06/27/18 0002 Specimen: Tissue from Nasopharynx Respiratory pathogen panel, NAAT [[id number]] Collected: 06/26/182358 Order Status: Completed Lab Status: [...] pneumoniae DNA Not Detected Narrative: Performed at: [address] [id number] Traveling Sales Executive: Salazar Ocampo MD, Phone: [phone] Legionella, Ag, EIA, Qual, Urine [[id number]] Collected: 06/26/18 1501 Order Status: Completed Lab Status: Final result Updated: 06/27/18 1311 Specimen: Urine from Urine, Indwelling Catheter L. pneumophila Serogp 1 Ur Ag Negative Comment: Presumptive negative for L. pneumophila serogroup 1 antigen in urine, suggesting no recent or current infection. Legionnaires' disease cannot be ruled out since other serogroups and species may also cause disease. Narrative: Performed at: [address] [id number] Traveling Sales Executive: Salazar Ocampo MD, Phone: [phone] Culture, Urine [[id number]] (Normal) Collected: 06/26/18 1500 Order Status: Completed Lab Status: Preliminary result Updated: 06/27/18 09 Specimen: Urine from Urine, Clean Catch Culture No growth to date Culture, MRSA [[id number]] Collected: 06/26/18 1312 Order Status: Completed Lab Status: Final result Updated: 06/27/18 07 Specimen: Tissue from Nares Culture Negative for MRSA by chromogenic agar method 3+ Coagulase positive Staphylococcus Culture, Blood [[id number]] (Normal) Collected: 06/26/18 1022 Order Status: Completed Lab Status: Preliminary result Updated: 06/26/18 223 Specimen: Blood from Peripheral Blood Culture No growth: Monitored continually by instrument for 5 days Culture, Blood [[id number]] (Normal) Collected: 06/26/18 0924 Order Status: Completed [...] relayed to the ordering provider by the [facility] technologist immediately following the exam. Dictated and [...] Forgetful. Have to repeat information multiple time. trimming department blocker grossly intact, no focal we akness or sensory deficits Chava Werner DO 06/28/2018 7:07 [facility] Portions of this chart may have been created with [employer] voice recognition software. Occasi onal wrong-word [...] see his primary care provider at the [facility] and complained of generalized swelling and abdominal [...] Value Units Date/Time Culture, Respiratory, Lower, Smear [[id number]] Collected: 06/27/18 0938 Order Status: Completed Lab Status: Preliminary result Updated: 06/27/18 1342 Specimen: Body Fluid from Sputum, Expectorated Gram Stain Result 3+ White Blood Cells 2+ Epithelial cells 1+ Gram positive cocci 1+ Gram negative rods Respiratory Virus Panel, NAAT [[id number]] Collected: 06/26/182358 Order Status: Sent Lab Status: In process Updated: 06/27/18 0002 Specimen: Tissue from Nasopharynx Respiratory pathogen panel, NAAT [[id number]] Collected: 06/26/182358 Order Status: Sent Lab Status: In process Updated: 06/27/18 0002 Specimen: Tissue from Nasopharynx Legionella, Ag, EIA, Qual, Urine [[id number]] Collected: 06/26/18 1501 Order Status: Completed Lab Status: Final result Updated: 06/27/18 131 Specimen: Urine from Urine, Indwelling Catheter L. pneumophila Serogp 1 Ur Ag Negative Comment: Presumptive negative for L. pneumophila serogroup 1 antigen in urine, suggesting no recent or current infection. Legionnaires' disease cannot be ruled out since other serogroups and species may also cause disease. Narrative: Performed at: [address] [place] [id number] Traveling Sales Executive: Salazar Ocampo MD, Phone: [phone] Culture, Urine [[id number]] (Normal) Collected: 06/26/18 1500 Order Status: Completed Lab Status: Preliminary result Updated: 06/27/18 09 Specimen: Urine from Urine, Clean Catch Culture No growth to date Culture, MRSA [[id number]] Collected: 06/26/18 1312 Order Status: Completed Lab Status: Final result Updated: 06/27/18 0724 Specimen: Tissue from Nares Culture Negative for MRSA by chromogenic agar method 3+ Coagulase positive Staphylococcus Culture, Blood [[id number]] (Normal) Collected: 06/26/18 1022 Order Status: Completed Lab Status: Preliminary result Updated: 06/26/18 223 Specimen: Blood from Peripheral Blood Culture No growth: Monitored continually by instrument for 5 days Culture, Blood [[id number]] (Normal) Collected: 06/26/18 0924 Order Status: Completed [...] South MD - 06/27/2018 9:18 AM PST [facility] NEPHROLOGY progress note Patient: David Kerr Jr. [...] Silvina Alcantar MD Electronically signed: 06/27/2018 9:20 [facility] NEPHROLOGY Chava Morales DO - 06/27/2018 7:18 AM PST [facility] [place] HOSPITALIST PROGRESS NOTE Patient: David Kerr Jr. : 1945: Age: 72 y.o. MedRec: [id number] Admission date: 06/26/2018 Hospital day # : [...] see his primary care provider at the [facility] and complained of generalize d swelling [...] would benefit from outpatient follow-up with a youth nutritional monitor # Moderate protein calorie malnutrition: The patient [...] pH, Urine 5.0 5.0 - 8.0 Specific [place] 1.015 1.001 - 1.030 Protein, Urine 30 [...] Value Units Date/Time Respiratory Virus Panel, NAAT [[id number]] Collected: 06/26/182358 Order Status: Sent Lab Status: In process Updated: 06/27/18 0002 Specimen: Tissue from Nasopharynx Respiratory pathogen panel, NAAT [[id number]] Collected: 06/26/18 235 Order Status: Sent Lab Status: In process Updated: 06/27/18 0002 Specimen: Tissue from Nasopharynx Legionella, Ag, EIA, Qual, Urine [[id number]] Collected: 06/26/18 1501 Order Status: Sent Lab Status: In process Updated: 06/26/18 1527 Specimen: Urine from Urine, Indwelling Catheter Culture, Urine [[id number]] Collected: 06/26/18 1500 Order Status: Sent Lab Status: In process Updated: 06/26/18 1549 Specimen: Urine from Urine, Clean Catch Culture, MRSA [[id number]] Collected: 06/26/18 1312 Order Status: Sent Lab Status: In process Updated: 06/26/18 1333 Specimen: Tissue from Nares Culture, Blood [[id number]] (Normal) Collected: 06/26/18 1022 Order Status: Completed Lab Status: Preliminary result Updated: 06/26/18 2231 Specimen: Blood from Peripheral Blood Culture No growth: Monitored continually by instrument for 5 days Culture, Blood [[id number]] (Normal) Collected: 06/26/18923 Order Status: Completed Lab [...] relayed to the ordering provider by the caromont healthound technologist immediately following the exam. Dictated and [...] flexion. Pych: normal mood and affect Neuro: trimming department blocker grossly intact, no focal weakness or sensory deficits Chava Werner DO 06/27/2018 7:18 [facility] Portions of this chart may have been created with [employer] voice recognition software. Occasi onal wrong-word [...] see his primary care provider at the [facility] and complained of generalized swelling and abdominal [...] Procedure Component Value Units Date/Time Culture, MRSA [[id number]] Collected: 06/26/18 1312 Order Status: Sent Lab Status: No result Specimen: Tissue from Nares Culture, Respiratory, Lower, Smear [[id number]] Order Status: Sent Lab Status: No result Specimen: Body Fluid from Sputum, Expectorated Respiratory Virus Panel, NAAT [[id number]] Order Status: Sent Lab Status: No result Specimen: Tissue from Nasopharynx Respiratory pathogen panel, NAAT [[id number]] Order Status: Sent Lab Status: No result Specimen: Tissue from Nasopharynx Culture, Blood [[id number]] Collected: 06/26/18 1022 Order Status: Sent Lab Status: In process Updated: 06/26/18 1026 Specimen: Blood from Peripheral Blood Culture, Blood [[id number]] Collected: 06/26/18 0924 Order Status: Sent Lab [...] 2018 | Visit | | DO Rolan [address] [place] [address] | | | | | | [address] | | | | | | [place] | | | | | | [address] | | | | | | | | +--------+ + + + + | 09/25/ | Office | Cardiology | Sheldon Spence | | 2019 | Visit | | MD Paul [address] | | | | | | [facility] | | | | | | [place] | | | | | | [id number] | | | | | | | [...] [place] | | | | | | [address] | | | | | | | [...] + | [facility] | [address] | [place] | [phone] | | [facility] | | [address] | | | - LABORATORY | | [...] mL/min/1.73m2 | [facility] | | | [place] | | | MEDICAL | | | [...] [address] | [place] | [phone] | | [facility] | | [address] | | | - LABORATORY | | [...] [address] | [place] | [phone] | | [facility] | | [address] | | | - LABORATORY | | [...] + | [facility] | [address] | [place] | [phone] | | [facility] | | [address] | | | - LABORATORY | | [...] [address] | [place] | [phone] | | [facility] | | [address] | | | - LABORATORY | | [...] [address] | [place] | [phone] | | [facility] | | [address] | | | - LABORATORY | | [...] test | | | | | | ([id number]). | | | | + + + + + + + + | Specimen | + + | Blood | + + + + + | Narrative | Performed At | + + + | Performed at: 01 - [facility] [place] [address], | REFERENCE LAB | | [place], [place] [id number] Traveling Sales Executive: Salazar Ocampo MD, Phone: | [facility] | | [phone] | | + + + + + + + + | Performing | Address | City/State/Zipcode | Phone Number | | Organization | | | | + + + + + | REFERENCE LAB | [address] | [place] [address] | [phone] | | [facility] | Drive [...] + | Performed at: 01 - [facility] [place] [address], | REFERENCE LAB | | [place], [place] [id number] Traveling Sales Executive: Salazar Ocampo MD, Phone: | [facility] | | [phone] | | + + + + + + + + | Performing | Address | City/State/Zipcode | Phone Number | | Organization | | | | + + + + + | REFERENCE LAB | [address] | [place] [address] | [phone] | | [facility] | Drive [...] + + | Performed at: 01 - [facility] [address], | REFERENCE LAB | | [place], [place] [id number] Traveling Sales Executive: Salazar Ocampo MD, Phone: | [facility] | | [phone] | | + + + + + + + + | Performing | Address | City/State/Zipcode | Phone Number | | Organization | | | | + + + + + | REFERENCE LAB | [address] | [place] [address] | [phone] | | [facility] | Drive [...] [address] | [place] | [phone] | | [facility] | | [address] | | | - LABORATORY | | [...] mL/min/1.73m2 | [facility] | | | [place] | | | MEDICAL | | | [...] [address] | [place] | [phone] | | [facility] | | [address] | | | - LABORATORY | | [...] + | [facility] | [address] | [place] | [phone] | | [facility] | | [address] | | | - LABORATORY | | [...] [address] | [place] | [phone] | | [facility] | | [address] | | | - LABORATORY | | [...] [address] | [place] | [phone] | | [facility] | | [address] | | | - LABORATORY | | [...] [address] | [place] | [phone] | | [facility] | | [address] | | | - LABORATORY | | [...] + | [facility] | [address] | [place] | [phone] | | [facility] | | [address] | | | - LABORATORY | | [...] mL/min/1.73m2 | [facility] | | | [place] | | | MEDICAL | | | [...] [address] | [place] | [phone] | | [facility] | | [address] | | | - LABORATORY | | [...] [address] | [place] | [phone] | | [facility] | | [address] | | | - LABORATORY | | [...] + | [facility] | [address] | [place] | [phone] | | [facility] | | [address] | | | - LABORATORY | | [...] [address] | [place] | [phone] | | [facility] | | [address] | | | - LABORATORY | | [...] + | [facility] | [address] | [place] | [phone] | | [facility] | | [address] | | | - LABORATORY | | [...] mL/min/1.73m2 | [facility] | | | [place] | | | MEDICAL | | | [...] [address] | [place] | [phone] | | [facility] | | [address] | | | - LABORATORY | | [...] [address] | [place] | [phone] | | [facility] | | [address] | | | - LABORATORY | | [...] | | | POC | | | [facility] | | | | | | MEDICAL [...] + | [facility] | [address] | [place] | [phone] | | [facility] | | [address] | | | - LABORATORY | | [...] [address] | [place] | [phone] | | [facility] | | [address] | | | - LABORATORY | | [...] + | [facility] | [address] | [place] | [phone] | | [facility] | | [address] | | | - LABORATORY | | [...] + | [facility] | [address] | [place] | [phone] | | [facility] | | [address] | | | - LABORATORY | | [...] mL/min/1.73m2 | [facility] | | | [place] | | | MEDICAL | | | [...] + | [facility] | [address] | [place] | [phone] | | [facility] | | [address] | | | - LABORATORY | | [...] + + | [facility] | [address] | [place] | [phone] | | [facility] | | [address] | | | - LABORATORY | | [...] [address] | [place] | [phone] | | [facility] | | [address] | | | - LABORATORY | | [...] + | [facility] | [address] | [place] | [phone] | | [facility] | | [address] | | | - LABORATORY | | [...] [address] | [place] | [phone] | | [facility] | | [address] | | | - LABORATORY | | [...] ST. | [address] | [place] | [phone] | | [facility] | | [address] | | | - LABORATORY | | [...] mL/min/1.73m2 | [facility] | | | [place] | | | MEDICAL | | | [...] + | [facility] | [address] | [place] | [phone] | | [facility] | | [address] | | | - LABORATORY | | [...] | | POC | | | [facility] | | | | | [...] [address] | [place] | [phone] | | [facility] | | [address] | | | - LABORATORY | | [...] [address] | [place] | [phone] | | [facility] | | [address] | | | - LABORATORY | | [...] | | POC | | | [facility] | | | | | [...] [address] | [place] | [phone] | | [facility] | | [address] | | | - LABORATORY | | [...] + | [facility] | [address] | [place] | [phone] | | [facility] | | [address] | | | - LABORATORY | | [...] mL/min/1.73m2 | [facility] | | | [place] | RATE,ESTIMATED | | MEDICAL | | | | mL/min/1.80w6Dyqj than | | CENTER - | | [...] | bulin Ratio | | | [facility] | | | | | | MEDICAL [...] [address] | [place] | [phone] | | [facility] | | [address] | | | - LABORATORY | | [...] + | [facility] | [address] | [place] | [phone] | | [facility] | | [address] | | | - LABORATORY | | [...] [address] | [place] | [phone] | | [facility] | | [address] | | | - LABORATORY | | [...] + | [facility] | [address] | [place] | [phone] | | [facility] | | [address] | | | - LABORATORY | | [...] + | [facility] | [address] | [place] | [phone] | | [facility] | | [address] | | | - LABORATORY | | [...] ST. | [address] | [place] | [phone] | | [facility] | | [address] | | | - LABORATORY | | [...] mL/min/1.73m2 | [facility] | | | [place] | | | MEDICAL | | | [...] | ine Ratio | | | [facility] | | | | [...] [address] | [place] | [phone] | | [facility] | | [address] | | | - LABORATORY | | [...] [address] | [place] | [phone] | | [facility] | | [address] | | | - LABORATORY | | [...] + | [facility] | [address] | [place] | [phone] | | [facility] | | [address] | | | - LABORATORY | | [...] [address] | [place] | [phone] | | [facility] | | [address] | | | - LABORATORY | | [...] [address] | [place] | [phone] | | [facility] | | [address] | | | - LABORATORY | | [...] + | [facility] | [address] | [place], [place] | [phone] | | [facility] | | [address] | | | - LABORATORY | | [...] [address] | [place] | [phone] | | [facility] | | [address] | | | - LABORATORY | | [...] [address] | [place] | [phone] | | [facility] | | [address] | | | - LABORATORY | | [...] | | | | | | [facility] | | | | | | MEDICAL [...] ST. | [address] | [place] | [phone] | | [facility] | | [address] | | | - LABORATORY | | [...] mL/min/1.73m2 | [facility] | | | [place] | | | MEDICAL | | | [...] + | [facility] | [address] | [place] | [phone] | | [facility] | | [address] | | | - LABORATORY | | [...] | | POC | | | [facility] | | | | | [...] ST. | [address] | [place], [place] | [phone] | | [facility] | | [address] | | | - LABORATORY | | [...] [address] | [place] | [phone] | | [facility] | | [address] | | | - LABORATORY | | [...] + | [facility] | [address] | [place] | [phone] | | [facility] | | [address] | | | - LABORATORY | | [...] + | [facility] | [address] | [place] | [phone] | | [facility] | | [address] | | | - LABORATORY | | [...] [address] | [place] | [phone] | | [facility] | | [address] | | | - LABORATORY | | [...] mL/min/1.73m2 | [facility] | | | [place] | | | MEDICAL | | | [...] + | [facility] | [address] | [place] | [phone] | | [facility] | | [address] | | | - LABORATORY | | [...] [address] | [place] | [phone] | | [facility] | | [address] | | | - LABORATORY | | [...] ST. | [address] | [place] | [phone] | | [facility] | | [address] | | | - LABORATORY | | [...] + | [facility] | [address] | [place] | [phone] | | [facility] | | [address] | | | - LABORATORY | | [...] [address] | [place] | [phone] | | [facility] | | [address] | | | - LABORATORY | | [...] ST. | [address] | [place] | [phone] | | [facility] | | [address] | | | - LABORATORY | | [...] + | [facility] | [address] | [place] | [phone] | | [facility] | | [address] | | | - LABORATORY | | [...] [address] | [place] | [phone] | | [facility] | | [address] | | | - LABORATORY | | [...] 5.56 (H) | 0.60 - 1.30 | [facility] | | | | | mg/dL | [...] mL/min/1.73m2 | [facility] | | | [place] | RATE,ESTIMATED | | MEDICAL | | | | mL/min/1.92k1Gwui than | | CENTER - | | [...] [address] | [place] | [phone] | | [facility] | | [address] | | | - LABORATORY | | [...] [address] | [place] | [phone] | | [facility] | | [address] | | | - LABORATORY | | [...] + | [facility] | [address] | [place] | [phone] | | [facility] | | [address] | | | - LABORATORY | | [...] mL/min/1.73m2 | [facility] | | | [place] | RATE,ESTIMATED | | MEDICAL | | | | mL/min/1.85x8Hvhj than | | CENTER - | | [...] + | [facility] | [address] | [place] | [phone] | | [facility] | | [address] | | | - LABORATORY | | [...] + | [facility] | [address] | [place] | [phone] | | [facility] | | [address] | | | - LABORATORY | | [...] [address] | [place] | [phone] | | [facility] | | [address] | | | - LABORATORY | | [...] | | [facility] | | | [facility] | | | - LABORATORY | + + + + + + + + | Performing | Address | City/State/Zipcode | Phone Number | | Organization | | | | + + + + + | [facility] | [address] | [place] | [phone] | | [facility] | | [address] | | | - LABORATORY | | [...] + | [facility] | [address] | [place] | [phone] | | [facility] | | [address] | | | - LABORATORY | | [...] [address] | [place] | [phone] | | [facility] | | [address] | | | - LABORATORY | | [...] [address] | [place] | [phone] | | [facility] | | [address] | | | - LABORATORY | | [...] [address] | [place] | [phone] | | [facility] | | [address] | | | - LABORATORY | | [...] [address] | [place] | [phone] | | [facility] | | [address] | | | - LABORATORY | | [...] + | Performed at: 01 - [facility] [place] [address] [address], | REFERENCE LAB | | [place], [place] [id number] Traveling Sales Executive: Judy Tovar MD, Phone: | [facility] | | [phone] | | + + + + + + + + | Performing | Address | City/State/Zipcode | Phone Number | | Organization | | | | + + + + + | REFERENCE LAB | [address] | [place] [address] | [phone] | | [facility] | Drive [...] [address] | [place] | [phone] | | [facility] | | [address] | | | - LABORATORY | | [...] ST. | [address] | [place] | [phone] | | [facility] | | [address] | | | - LABORATORY | | [...] [address] | [place] | [phone] | | [facility] | | [address] | | | - LABORATORY | | [...] + | [facility] | [address] | [place] | [phone] | | [facility] | | [address] | | | - LABORATORY | | [...] + | [facility] | [address] | [place], [place] | [phone] | | [facility] | | [address] | | | - LABORATORY | | [...] | | | FILTRATION | mL/min/1.73m2 | [facility] | | | [place] | RATE,ESTIMATED | | MEDICAL | | | | mL/min/1.38e4Xdqx than | | CENTER - | | [...] [address] | [place] | [phone] | | [facility] | | [address] | | | - LABORATORY | | [...] [address] | [place] | [phone] | | [facility] | | [address] | | | - LABORATORY | | [...] + | Performed at: 01 - [facility] [place] [address], | REFERENCE LAB | | [place], [place] [id number] Traveling Sales Executive: Salazar Ocampo MD, Phone: | [facility] | | [phone] | | + + + + + + + + | Performing | Address | City/State/Zipcode | Phone Number | | Organization | | | | + + + + + | REFERENCE LAB | [address] | [place] [address] | [phone] | | [facility] | Drive [...] + + | Performed at: 01 - [facility] [address], | REFERENCE LAB | | [place], [place] [id number] Traveling Sales Executive: Judy Tovar MD, Phone: | [facility] | | [phone] | | + + + + + + + + | Performing | Address | City/State/Zipcode | Phone Number | | Organization | | | | + + + + + | REFERENCE LAB | [address] | [place] [address] | [phone] | | [facility] | Drive [...] + | [facility] | [address] | [place] | [phone] | | [facility] | | [address] | | | - LABORATORY | | [...] [address] | [place] | [phone] | | [facility] | | [address] | | | - LABORATORY | | [...] | | | FILTRATION | mL/min/1.73m2 | [facility] | | | [place] | RATE,ESTIMATED | | MEDICAL | | | | mL/min/1.45d9Aizw than | | CENTER - | | [...] + | [facility] | [address] | [place] | [phone] | | [facility] | | [address] | | | - LABORATORY | | [...] + | [facility] | [address] | [place] | [phone] | | [facility] | | [address] | | | - LABORATORY | | [...] + + | Performed at: 01 - [place]Co[place] [place] [address], | REFERENCE LAB | | [place], [place] [id number] Traveling Sales Executive: Salazar Ocampo MD, Phone: | [facility] | | [phone] | | + + + + + + + + | Performing | Address | City/State/Zipcode | Phone Number | | Organization | | | | + + + + + | REFERENCE LAB | [address] | [place] [address] | [phone] | | [facility] | Drive [...] [address] | [place] | [phone] | | [facility] | | [address] | | | - LABORATORY | | [...] | REFERENCE | | | | of [employer] | | LAB [facility] | | | | standards require a | | - [facility] | | | | culture to beperformed | | | | | | on CSF specimens | | | | | | submitted for bacterial | | | | | | antigen testing.(CAP | | | | | | [id number]) Urine | | | | | | [...] + | Performed at: 01 - [facility] [address], | REFERENCE LAB | | [place], [place] [id number] Traveling Sales Executive: Judy Tovar MD, Phone: | [facility] | | [phone] | | + + + + + + + + | Performing | Address | City/State/Zipcode | Phone Number | | Organization | | | | + + + + + | REFERENCE LAB | [address] | [place] [address] | [phone] | | [facility] | Drive [...] - 1.030 | [facility] | | | [place] | | | [facility] | | [...] [address] | [place] | [phone] | | [facility] | | [address] | | | - LABORATORY | | [...] + | [facility] | [address] | [place] | [phone] | | [facility] | | [address] | | | - LABORATORY | | [...] [address] | [place] | [phone] | | [facility] | | [address] | | | - LABORATORY | | [...] [address] | [place] | [phone] | | [facility] | | [address] | | | - LABORATORY | | [...] [address] | [place] | [phone] | | [facility] | | [address] | | | - LABORATORY | | [...] | | | | | | [employer] | | | | | [...] [address] | [place] | [phone] | | [facility] | | [address] | | | - LABORATORY | | [...] + | [facility] | [address] | [place] | [phone] | | [facility] | | [address] | | | - LABORATORY | | [...] [address] | [place] | [phone] | | [facility] | | [address] | | | - LABORATORY | | [...] [address] | [place] | [phone] | | [facility] | | [address] | | | - LABORATORY | | [...] | [employer] | | | [facility] | | | | | [...] [address] | [place] | [phone] | | [facility] | | [address] | | | - LABORATORY | | [...] + | [facility] | [address] | [place] | [phone] | | [facility] | | [address] | | | - LABORATORY | | [...] ST. | [address] | [place], [place] | [phone] | | [facility] | | [address] | | | - LABORATORY | | [...] [address] | [place] | [phone] | | [facility] | | [address] | | | - LABORATORY | | [...] ordering provider by the | | | production control technologist immediately following the exam. Dictated | [...] the ordering provider by the | | production control technologist immediately following the exam. | | [...] ST. | [address] | [place], [place] | [phone] | | [facility] | | [address] | | | - LABORATORY | | [...] [address] | [place] | [phone] | | [facility] | | [address] | | | - LABORATORY | | [...] [address] | [place] | [phone] | | [facility] | | [address] | | | - LABORATORY | | [...] + | [facility] | [address] | [place] | [phone] | | [facility] | | [address] | | | - LABORATORY | | [...] | | | Anticoagulation Range: | | [facility] | | | | 2.0 [...] [address] | [place] | [phone] | | [facility] | | [address] | | | - LABORATORY | | [...] [address] | [place] | [phone] | | [facility] | | [address] | | | - LABORATORY | | [...] [address] | [place] | [phone] | | [facility] | | [address] | | | - LABORATORY | | [...] + | [facility] | [address] | [place] | [phone] | | [facility] | | [address] | | | - LABORATORY | | [...] + | [facility] | [address] | [place] | [phone] | | [facility] | | [address] | | | - LABORATORY | | [...] ST. | [address] | [place] | [phone] | | [facility] | | [address] | | | - LABORATORY | | [...] mL/min/1.73m2 | [facility] | | | [place] | RATE,ESTIMATED | | MEDICAL | | | | mL/min/1.05x6Rivs than | | CENTER - | | [...] [address] | [place] | [phone] | | [facility] | | [address] | | | - LABORATORY | | [...] [address] | [place] | [phone] | | [facility] | | [address] | | | - LABORATORY | | [...] | | | | | NPO, Daytime 8549-8485 Use NIGHT | | | | | | | DOSE for doses scheduled: | | | | | | | HS, 3AM, Nighttime [id number], | | | | | | + [...]
--- OUTSIDE RECORDS SUMMARY | ~2019-07-14 | XMS | Encounter Summary ---
Demographics + + + | Address | [address] | | | [place] [address] | + + + | Home Phone | | + + + | Preferred Language | Unknown | + + + | Marital Status | | + + + | Evangelical Affiliation | 1041 | + + + | Race | Unknown | + + + | Ethnic Group | Unknown | + + + Author + + + | Author | [facility] | | | and [place] | + + + | Organization | [facility] | | | and [place] | + + + | Address | Unknown | + + + | Phone | Unavailable | + + + Support + + + + + | Name | Relationship | Address | Phone | + + + + + | Lula Kerr | ECON | [address] | | | | | [place] | | | | | [address] | | + + + + + Care Team Providers + +------+ + | 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 Name | Role | Phone [...] | | | | AV graft | [place], | [address] | | | | | Procedures | [place] | [place], | | | | | [place] OFFICE | [address] | [place] [address] | | | | | OUTPATIENT | Phone: | Phone: | | | | | NEW 45 | [phone] | [phone] | | | | | MINUTES | Fax: | Fax: | | | | | | [phone] | [phone] | +--------+--------+ + + + + Encounter Details +--------+---------+ + + + | Date | Type | Department | Care Team | Description | +--------+---------+ + + + | 09/13/ | Office | [facility] | Amilcar Hampton | ESRD (end stage | | 2019 | Visit | SURGERY [address] | MD Omar, FACS 380 | renal disease) ([facility]) | | | | [place], [place] | [address] [facility] | (Primary Dx); | | | | [address] | [place] [address] | Post-operative state | | | | [phone] | [phone] | | | | | | | [...] AVF; Surgeon: Amilcar Hampton MD, FACS; Location: [facility] MAIN OR CATARACT REMOVAL WITH IMPLANT Left [...] West | | | | | | [place], [address] | | | | | | [place] | | | | | | [address] | | | | | | | | +--------+ + + + + | 09/25/ | Office | Cardiology | Sheldon Spence | | | 2019 | Visit | | MD [address] | | | | | | [address] | | | | | | [place] | | | | | | [address] | | | | | | | [...] [place] | | | | | | [address] | | | | | | | | +--------+ + + + + documented as of this encounter Visit Diagnoses + + | Diagnosis | + + | ESRD (end stage renal disease) (HCC) - Primary End stage renal disease | + + | Post-operative state Other postprocedural status | + + documented in this encounter
--- OUTSIDE RECORDS SUMMARY | ~2019-07-14 | XMS | Clinical Summary ---
Demographics + + + | Address | [address] | | | [place] [address] | + + + | Home Phone | | + + + | Preferred Language | Unknown | + + + | Marital Status | | + + + | Latter-Day Affiliation | 1041 | + + + | Race | Unknown | + + + | Ethnic Group | Unknown | + + + Author + + + | Author | [facility] | | | and [place] | + + + | Organization | [facility] | | | and [place] | + + + | Address | Unknown | + + + | Phone | Unavailable | + + + Support + + + + + | Name | Relationship | Address | Phone | + + + + + | Lula Kerr | ECON | [address] | | | | | [place] | | | | | [address] | | + + + + + Care Team Providers + +------+ + | Care Chief Compressor Station Engineer Name | Role | Phone | [...] + + | 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 | | [id number] Risk Score: 5 - 7.2% Estimated Stroke Risk Per | | YearHAS-BLED Score for Major Bleeding Risk: 2 - Risk: Study One - | | 4.1%; Study Two - 1.88 bleeds per 100 patient yearsP: Unable to | | tolerate anticoagulation. ASA only. Overview: Last Assessment & | | Plan: A: Persistent afib. [id number] Risk Score: 5 - 7.2% | | Estimated Stroke Risk Per YearHAS-BLED Score for Major Bleeding | | Risk: 2 - Risk: Study One - 4.1%; Study Two - 1.88 bleeds per 100 | | patient yearsP: Unable to tolerate anticoagulation. ASA only. | |Last Assessment & Plan: | |A: Persistent afib. | | | |[id number]-[id number] Risk Score: 5 - 7.2% Estimated Stroke [...] encounter | | | | | | ([facility]) | +--------+ + + + + | [...] | | | | | | dialysis ([facility]) | | | | | | (Primary [...] insulin | | | | | | ([facility]); Persistent | | | | | | [...] | 05/21/ | Off-Site | Nephrology | Maty Tina | ESRD (end stage | | 2019 | Visit | | DO Rolan | renal disease) on | | | | | | dialysis ([facility]) | | | | | | (Primary Dx) | +--------+ + + + + | 05/17/ | Office | Cardiology | Natalie Luo DO | Ischemic | | 2018 | Visit | | | cardiomyopathy | | | | | | (Primary Dx); [place] | | | | | | (ventricular | | | | | | tachycardia) ([facility]); | | | | | | Left [...] | | | | | on dialysis ([facility]); | | | | | | Hx [...] 2018 | Visit | | DO Rolan [address] [place] [address] | | | | | | [address] | | | | | | [place] | | | | | | [address] | | | | | | | | +--------+ + + + + | 09/25/ | Office | Cardiology | Sheldon Spence | | | 2019 | Visit | | MD [address] | | | | | | [facility] | | | | | | [place] | | | | | | [address] | | | | | | | [...] | | | | | [place] | | | | | | [address] | | | | | | | [...] +------+--------+ +--------+--------+--------+ | Lens [id number] 14.5 - [id number] | | Left: | [facility] | | 07/31/ | [id number] | | [id number]: Qty: 1 on | | Eye | - [facility] | | 2016 | 14.5 | | 09/16/2014 by Max, | | | | | | /[id number] | | Charisse Batres MD at [facility] | | | | | | 276 | | [facility] | | | | | | 036 / | + +------+--------+ +--------+--------+--------+ | Lens Wh63fp31.5 - [id number] | | Right: | [facility] | | 08/24/ | [id number] | | [id number]: Qty: 1 on | | Eye | - [facility] | | 2018 | 14.5 | | 10/14/2014 by Max, | | | | | | /[id number] | | Charisse Batres MD at [facility] | | | | | | 364 | | [facility] | | | | | | [address] [...] [address] | [place] | [phone] | | [facility] | | [address] | | | - LABORATORY | | [...] TRESA | | | | | | [facility] | | | | | | [...] [address] | [place] | [phone] | | [facility] | | [address] | | | - LABORATORY | | [...] Drummond MD | | | : 1945MRN: [id number] Primary cardiology provider: None | | | Primary electrophysiology provider: Whole Sale Fund Device | | | blade boner: iHeart Device type: Biventricular Battery | | | [...] reviewed by: Anat | | | Yuval supervisor concrete stone fabricating [facility] | | | | | |INTERROGATION [...] | | |Testing reviewed by: Anat Barakat, supervisor concrete stone fabricating [facility] | | | | | | [...] +--------+ +---------+--------+ | MEDICARE | MEDICA | [id number] | | [phone] | | Medica | | | RE | | 004-Pr | 5 | | re | | | PART A | | esent | | | | | | AND B | | | | | | + +--------+ +--------+ +---------+--------+ | MEDICARE | MEDICA | [id number] | | [phone] | | Medica | | | RE | | 005-Pr | 5 | | re | | | PART A | | esent | | | | | | AND B | | | | | | + +--------+ +--------+ +---------+--------+ | AARP | AARP | [id number] | 07/25/19 | [phone] | | Indemn | | | MDCR | | 15-Pre | 0 | | ity | | | SUPPL | | sent | | | | + +--------+ +--------+ +---------+--------+ | AARP | AARP | [id number] | 07/25/19 | [phone] | | Indemn | | | MDCR | | 19-Pre | 0 | | ity | | | SUPPL | | sent | | | | + +--------+ +--------+ +---------+--------+ | [employer] | IHS | [id number] | 07/25/19 | | | Indemn | | SERVICE | YELLOW | | 15-Pre | | | ity | | | HAWK | | sent | | | | + +--------+ +--------+ +---------+--------+ | [employer] | IHS | [id number] | 07/25/19 | | | Indemn | [...] Person | Self | [birth year] | | [address] | | | al/Fam | | 1946 | [phone] | [place], [place] | | | eliane | | | 4 (Home) | [address] | + +--------+ +--------+ + + | David Kerr | Person | Self | [birth year] | | [address] | | | al/Fam | | 1946 | [phone] | [place], [place] | | | eliane | | | 4 (Home) | [address] | + +--------+ +--------+ + + | David Kerr | Specia | Self | [birth year] | | [address] | | | l | | 1946 | [phone] | [place] | | | [place] | | | 4 ([place]) | [address] | | | es | | | | | + +--------+ +--------+ + + Advance Directives + + + + + | Type | Date Recorded | Patient | Explanation | | | | 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
--- OUTSIDE RECORDS SUMMARY | ~2019-07-14 | XMS | Encounter Summary ---
Demographics + + + | Address | [address] | | | [place] [address] | + + + | Home Phone | | + + + | Preferred Language | Unknown | + + + | Marital Status | | + + + | Jainism Affiliation | 1041 | + + + | Race | Unknown | + + + | Ethnic Group | Unknown | + + + Author + + + | Author | [facility] | | | and [place] | + + + | Organization | [facility] | | | and [place] | + + + | Address | Unknown | + + + | Phone | Unavailable | + + + Support + + + + + | Name | Relationship | Address | Phone | + + + + + | Lula Kerr | ECON | [address] | | | | | [place] | | | | | [address] | | + + + + + Care Team Providers + +------+ + | Care Sales Representative Consultant Name | Role | Phone | + [...] Fracture of vertebra | | | | [place], [place] | [place] [address] | due to | | | | [address] | [phone] | osteoporosis, | | | | [phone] | | initial encounter | | | [...] | Visit | | DO Rolan [address] [place] [address] | | | | | | [address] | | | | | | [place] | | | | | | [address] | | | | | | | | +--------+ + + + + | 09/25/ | Office | Cardiology | Sheldon Spence | | | 2019 | Visit | | MD [address] | | | | | | [place] | | | | | | [place] | | | | | | [address] | | | | | | | [...] [place] | | | | | | [address] | | | | | | | [...]
--- OUTSIDE RECORDS SUMMARY | ~2019-07-14 | XMS | Encounter Summary ---
Demographics + + + | Address | [address] | | | [place] [address] | + + + | Home Phone [...] + | Lula Kerr | ECON | [address] | | | | | [place] | | | | | [address] | | + + + + + Care Team Providers + +------+ + | Care Scarf And Anneal Operator Name | Role | Phone | + +------+ + | Gregory Drummond MD | PCP | | + +------+ + Reason for Visit +---------+ + | Reason | Comments | +---------+ + | Post Op | right arm avf or av graft | +---------+ + Evaluate & Treat (Routine) + +--------+ + + + + | Status | Reason | Specialty | Diagnoses / | Referred By | Referred To | | | | | Procedures | Contact | Contact | + +--------+ + + + + | Authorized | | Surgery / | Diagnoses | Gregory Drummond | Field, | | | | General | [address] | MD Rolan [address] | Amilcar Nelson, | | | | Surgery | ARM AVF OR | [address] | MD FACS [address] | | | | | AV GRAFT/B | Reginald [place], | [address] | | | | | Procedures | [place] | [place], | | | | | [place] | [address] | [place] [address] | | | | | | Phone: | Phone: | | | | | | [phone] | [phone] | | | | | | Fax: | Fax: | | | | | | [phone] | [phone] | + +--------+ + + + + Encounter Details +--------+---------+ + + + | Date | Type | Department | Care Team | Description | +--------+---------+ + + + | 10/04/ | Office | [facility] | Amilcar Hampton | ESRD (end stage | | 2019 | Visit | SURGERY [address] | MD Omar, FACS 380 | renal disease) ([facility]) | | | | [place], [place] | [address] [facility] | (Primary Dx); | | | | [address] | [place] [address] | Post-operative state | | | | [phone] | [phone] | | | | | | | [...] + + + + | Pulse | 79 | 10/04/2018 10:29 AM | | | | | PDT | | + + + + + | Temperature | 35.9 C (96.6 F) | 10/04/2018 10:29 AM | | | | | PDT [...] Weight | 107 kg (236 lb) | 10/04/2018 10:29 AM | | | | | PDT | | + + + + + | Height | 170.2 cm (5' 7") | 10/04/2018 10:29 AM | | | | | PDT | | + + + + + | Body Mass Index | 36.96 | 10/04/2018 10:29 AM | | | | | PDT | | + + + + + documented in this encounter Progress Notes Amilcar Hampton MD, FACS - 10/04/2018 10:50 AM PDTFormatting of this note might be diff erent from the original. Patient Identification: David Kerr Jr. 1945 Is a 72 y.o. male , a pat ient of Gregory Drummond MD. Patient is here with his . S: Date of surgery: 09/05/2018. Title of surgery: RIGHT brachial artery to cephalic vein f istula Physician notes: Patient arrives 29 day(s) s/p RIGHT brachial artery to cephalic vein fistula. He reports re covering well post surgery. Patient denies right arm or hand pain , denies numbness . PAST MEDICAL HISTORY Past Medical History: Diagnosis [...] AVF; Surgeon: Amilcar Hampton MD, FACS; Location: [facility] MAIN OR CATARACT REMOVAL WITH IMPLANT [...] defibrilator ; Surgeon: Meredith forbes MD; Location: [facility] MEDICAL PROCEDURE UNIT pacemaker medtronic SHUNT PLACEMENT/INSERTION Right 07/03/2018 Procedure: INSERTION SHUNT HEMODIALYSIS W/ PERMACATH; Surgeon: Melba Wallace MD; L ocation: [facility] MAIN OR Allergies Allergen Reactions Morphine Other (See Comments) Changes personality to "mean" "get mean" Medications: Outpatient Encounter Prescriptions as of 10/04/2018 Medication Sig Dispense Refill Acetaminophen 500 MG CAPS Take 1,000 mg by mouth every 6 hours as needed. allopurinol (ZYLOPRIM) 300 mg tablet Take 150 mg by mouth Daily. aspirin 81 MG tablet Take 81 mg by mouth. Three times a week atorvaSTATin (LIPITOR) 40 mg tablet Take 40 mg by mouth nightly. b complex-vitamin c-folic acid (NEPHRO-PAOLO) tablet Take 1 tablet by mouth Daily. 90 ta blet 3 fexofenadine (HECTOR) 180 mg tablet Take 180 [...] facility-administered encounter medications on file as of 10/04/2018. History reviewed. No pertinent family history. Social History: He reports that he quit smoking about 17 years ago. His smoking use included Cigarettes. He has a 30.00 pack-year smoking history. His smokeless tobacco use includes Chew. He reports that he drinks alcohol. He reports that he does not use drugs. PHYSICAL EXAM Vitals: 10/04/18 1029 Pulse: 79 Temp: 35.9 C (96.6 F) TempSrc: Temporal Weight: 107 kg (236 lb) Height: 1.702 m (5' 7") Body mass index is 36.96 kg/m. General Appearance: Alert, cooperative, nodistress, appears stated age Skin: Warm and dry Upper Extremities: RIGHT AV fistula with good thrill, incision clean and dry. Palpable Pulses: RIGHT LEFT Brachial Radial 0 Ulnar Neurologic: Alert and oriented x3,Moving all 4 extremities. ULTRASOUND REPORT: PATIENT NAME : David Kerr JrAnastacia EQUIPMENT: Funderbeam [employer] with 10-5 mHertz probe. INDICATIONS: S/P RIGHT brachial artery to cephalic vein fistula FINDING: RIGHT cephalic vein measures 8.1 mm and is 1.9 mm deep to the skin. Good flow is present. IMPRESSION: functioning well RIGHT AV Fistula. Assessment 1. ESRD (end stage renal disease) (HCC) 2. Post-operative state Plan 1. S/P RIGHT brachial artery to cephalic vein fistula. Healing well. Will give okgenevieve to use RIGHT AV fistula starting September Informed patient after three successful uses of RIGHT AV Fistula he can then have RIGHT IJ dialysis catheter removed. Advise patient have RIGHT IJ dialysis catheter removed by Dr. Aleksandar cruz, okay have removed after October Informed patient he may need ligation of RIGHT Accessory Vein in the future. Patient to resume diet and activities as tolerated. Patient to continue to follow with nep hrologist and primary care. I will be available should future surgical complications devel op. I appreciate having been involved in the care of this patient.. Amilcar Hampton MD, FACS Vascular and General Surgery documented i álvaro this encounter Plan of Treatment +--------+ + + + + | Date | Type | Specialty | Care Team | Description | +--------+ + + + + | 07/16/ | Off-Site | Nephrology | Maty Tian | | | 2018 | Visit | | M, DO [address] | | | | | | [place], [address] | | | | | [...] [place] | | | | | | [address] | | | | | | | [...] [place] | | | | | | [address] | | | | | | | | +--------+ + + + + documented as of this encounter Visit Diagnoses + + | Diagnosis | + + | ESRD (end stage renal disease) (HCC) - Primary End stage renal disease | + + | Post-operative state Other postprocedural status | + + documented in this encounter
--- OUTSIDE RECORDS SUMMARY | ~2019-07-14 | XMS | Encounter Summary ---
Demographics + + + | Address | [address] | | | [place] [address] | + + + | Home Phone | | + + + | Preferred Language | Unknown | + + + | Marital Status | | + + + | Gnosticism Affiliation | 1041 | + + + [...] + | Lula Kerr | ECON | [address] | | | | | [place] | | | | | [address] | | + + + + + Care Team Providers + +------+ + | Care Mandrel Maker Name | Role | Phone | + +------+ + | Gregory Drummond MD | PCP | | + +------+ + Encounter Details +--------+ + + + + | Date | Type | Department | Care Team | Description | +--------+ + + + + | 02/28/ | Documentati | ÓSCAR MCMILLAN | Ursulal Maty | | | 2019 | on | NEPHROLOGY [address] | M, DO [address] | | | | | [address] | [place], [address] | | | | | [place], [place] | [place], [place] | | | | | [address] | [address] | | | | | [phone] | | | +--------+ + + + [...] of this encounter Progress Lesli Hines - 02/28/2019 8:56 AM PDTFistulogram, arteriovenous report from Addi Garcia MD. DOS: 02/27/2019. Sent to scan.Electronically signed by Lesli Tavares at 01/2019 8:58 AM PDTdocumented in this encounter Plan of Treatment +--------+ + + + + | Date | Type | Specialty | Care Team | Description | +--------+ + + + + | 07/16/ | Off-Site | Nephrology | Maty Tian | | | 2018 | Visit | | DO Rolan [address] [place] [address] | | | | | | [address] | | | | | | [place] | | | | | | [phone] | | | | | | | | +--------+ + + + + | 09/25/ | Office | Cardiology | Sheldon Spence | | | 2019 | Visit | | MD [address] | | | | | | [place] | | | | | | [place] | | | | | | [address] | | | | | | | | +--------+ + + + + | 09/25/ | Procedure | Cardiology | | | | 2019 | visit | | | | +--------+ + + + + | 11/28/ | Office | Cardiology | Luo DO Natalie | | | 2019 | Visit | | [address] | | | | | | [place] | | | | | | [address] | | | | | | | [...]
--- OUTSIDE RECORDS SUMMARY | ~2019-07-14 | XMS | Encounter Summary ---
Demographics + + + | Address | [address] | | | [place] [address] | + + + | Home Phone [...] + | Lula Kerr | ECON | [address] | | | | | [place] | | | | | [address] | | + + + + + Care Team Providers + +------+ + | Care Timber Supervisor Name | Role | Phone | + +------+ + | Gregory Drummond MD | PCP | | + +------+ + Encounter Details +--------+---------+ + + + | Date | Type | Department | Care Team | Description | +--------+---------+ + + + | 09/16/ | [facility] | [facility] | Charisse Santana | Left Cataract | | 2015 | | MED CTR OR INTRA OP | MD [address] | Extraction w/ IOL | | | | [address] | [place], | Implant | | | | [place], [place] | [place] [address] | | | | | [address] | [phone] | | | | | [phone] | | | +--------+---------+ + + + [...] + documented in this encounter Discharge Instructions Harmony Bhatia RN - 09/16/2014Formatting of this note might [...] colors. The IOL normally lasts a lifetime. [id number] [employer]. [address] [place] [address]. All righ ts reserved. This information is [...] | Visit | | DO Rolan [address] [place] [address] | | | | | | [address] | | | | | | [place] | | | | | | [phone] | | | | | | | | +--------+ + + + + | 09/25/ | Office | Cardiology | Sheldon Spence | | | 2019 | Visit | | MD [address] | | | | | | [address] | | | | | | [place] | | | | | | [phone] | | | | | | | [...] [place] | | | | | | [address] | | | | | | | [...] + +--------+ + + + | POCT CHRISTOPHERTICK INR | STAT | 09/16/2014 | | [...] + | [facility] | [address] | [place] | [phone] | | [facility] | | [address] | | | - LABORATORY | | | | + + + + + | [facility] | [address] | [place] | | | [facility] | | [address] | | | - LABORATORY | | | | + + + + + documented in this encounter Visit Diagnoses + + | Diagnosis | + + | Senile nuclear sclerosis, left | + + documented in this encounter [...] + | betamethasone (CELESTONE | Given | 09/16/19 | 3 mg | | Eye-Left | | SOLUSPAN) injection PRN, | | 15 10:30 | | | | | Starting 09/16/14 at 1030, | | AM PST | | | | | Intra-op | | | | | | + +-------+ +------+---+ + +---+---+ | | | +---+---+ + +-------+ + +---+---+ | BSS intraocular solution PRN, | Given | 09/16/19 | 1 | | | | Starting 09/16/14 at 1031, | | 15 10:31 | Applicat | | | | Intra-op | | AM PST | ion | | | + +-------+ + +---+---+ +---+---+ | | | +---+---+ + +-------+ +---------+---+ + | ceFAZolin (ANCEF, KEFZOL) | Given | 09/16/19 | 12.5 mg | | Eye-Left | | injection PRN, Starting Mon | | 15 10:31 | | | | | 09/16/14 at 1031, Intra-op | | AM PST | | | | + +-------+ +---------+---+ [...] EPINEPHrine 1 mg/mL injection | Given | 09/16/19 | 0.4 mg | | Eye-Left | | PRN, Starting Tue09/16/14 at | | 15 10:32 | | | | | 1032, Intra-op | | AM PST | | [...] | | | | First dose on 09/16/14 at | | | | | | [...] | hyaluronate & chondroitin | Given | 09/16/19 | 1 kit | | | | hyaluronate (DUOVISC) intraocular | | 15 10:32 | | | | | kit PRN, Starting 09/16/14 | | AM PST | | | | | at 1032, Intra-op | | | | | | + +-------+ +-------+---+---+ +---+---+ | | | +---+---+ + +---------+ +---+-------+---+ | lactated ringers (LR) infusion | New Bag | 09/16/19 | | 100 | | | at 10-100 mL/hr, Intravenous, | | 15 8:49 | | mL/hr | | | CONTINUOUS, Starting 09/16/14 | | AM PST | | | | | at 0815, TKO., Pre-op | | | | | | + +---------+ +---+-------+---+ +---+---+ | | | +---+---+ + +-------+ +-------+---+ + | lidocaine (PF) 2% injection | Given | 09/16/19 | 2 mLs | | Eye-Left | | PRN, Starting Tue09/16/14 at | | 15 10:32 | | | | | 1032, Intra-op | | AM PST | | | | + +-------+ +-------+---+ + +---+---+ | | | +---+---+ + +-------+ +--------+---+---+ | phenylephrine (KELSEY-SYNEPHRINE) | Given | 09/16/19 | 1 drop | | | | 2.5% ophthalmic solution 1 drop | | 15 8:30 | | | | | 1 drop, Left Eye, EVERY 10 MIN, | | AM PST | | | | | First dose on 09/16/14 at | | | | | | [...] povidone-iodine 5 % ophthalmic | Given | 09/16/19 | 2 drops | | | | solution PRN, Starting Mon | | 15 10:11 | | | | | 09/16/14 at 1011, Intra-op | | AM PST | | | | + +-------+ +---------+---+---+ [...]
--- OUTSIDE RECORDS SUMMARY | ~2019-07-14 | XMS | Encounter Summary ---
Demographics + + + | Address | [address] | | | [place] [address] | + + + | Home Phone [...] + | Lula Kerr | ECON | [address] | | | | | [place] | | | | | [address] | | + + + + + Care Team Providers + +------+ + | Care Senior Manager Mmcoe Name | Role | Phone | + +------+ + PCP | Unavailable | + +------+ + Encounter Details +--------+ + + + + | Date | Type | Department | Care Team | Description | +--------+ + + + + | 04/09/ | Hospital | [facility] | Gregory Drummond MD | | | 2003 - | Encounter | MED CTR GENERIC IP | [address] | | | | | CONV DEPT [address] | [place], [place] | | | 05/15/ | | [place], | [address] | | | 2003 | | [place] [address] | [phone] | | | | | [phone] | | | +--------+ + + + [...] | Visit | | DO Rolan [address] | | | | | | [address] | | | | | | [place] | | | | | | [address] | | | | | | | | +--------+ + + + + | 09/25/ | Office | Cardiology | Sheldon Spence | | | 2019 | Visit | | MD [address] | | | | | | [place] | | | | | | [place] | | | | | | [address] | | | | | | | [...] [place] | | | | | | [address] | | | | | | | | +--------+ + + + + documented as of this encounter Visit Diagnoses Not on filedocumented in this encounter"
--- OUTSIDE RECORDS SUMMARY | ~2019-07-14 | XMS | Encounter Summary ---
Demographics + + + | Address | [address] | | | [place] [address] | + + + | Home Phone [...] + | Lula Kerr | ECON | [address] | | | | | [place] | | | | | [address] | | + + + + + Care Team Providers + +------+ + | Care Glazing Department Supervisor Name | Role | Phone | [...] Ninfa GLEASON | | | | | [phone] | [place] [address] | | +--------+ + + + + [...] | Visit | | DO Rolan [address] | | | | | | [address] | | | | | | [place] | | | | | | [address] | | | | | | | | +--------+ + + + + | 09/25/ | Office | Cardiology | Sheldon Spence | | | 2019 | Visit | | MD [address] | | | | | | [place] | | | | | | [place] | | | | | | [address] | | | | | | | [...] [place] | | | | | | [address] | | | | | | | | +--------+ + + + + documented as of this encounter Procedures + +--------+ + + + | Procedure Name | Priori | Date/Time | Associated Diagnosis | Comments | | | ty | | | | + +--------+ + + + | XR CHEST PA AND | Routin | 05/10/2018 | | Results for this | | LATERAL | e | 12:00 AM | | procedure are in the | | | | PDT | | results section. | + +--------+ + + + documented in this encounter Results XR Chest PA and Lateral (05/10/2018 12:00 AM PDT) + + | Specimen [...]
--- OUTSIDE RECORDS SUMMARY | ~2019-07-14 | XMS | Encounter Summary ---
Demographics + + + | Address | [address] | | | [place] [address] | + + + | Home Phone | | + + + | Preferred Language | Unknown | + + + | Marital Status | | + + + | Uatsdin Affiliation | 1041 | + + + [...] + | Lula Kerr | ECON | [address] | | | | | [place] | | | | | [address] | | + + + + + Care Team Providers + +------+ + | Care Stroke Program Coordinator Name | Role | Phone | + +------+ + | Gregory Drummond MD | PCP | | + +------+ + Encounter Details +--------+ + + + + | Date | Type | Department | Care Team | Description | +--------+ + + + + | 02/15/ | Orders Only | [facility] | Provider, | | | 2019 | | SYSTEM GENERIC OP | MD [address] | | | | | [address] | Ninfa Guillen | | | | | [address] [place], [place] | [place] [address] | | | | | [address] | | | | | | [phone] | | | +--------+ + + + [...] | Visit | | DO Rolan [address] | | | | | | [address] | | | | | | [place] | | | | | | [address] | | | | | | | | +--------+ + + + + | 09/25/ | Office | Cardiology | Sheldon Spence | | | 2019 | Visit | | MD [address] | | | | | | [place] | | | | | | [place] | | | | | | [address] | | | | | | | [...] [place] | | | | | | [address] | | | | | | | [...]
--- OUTSIDE RECORDS SUMMARY | ~2019-07-14 | XMS | Encounter Summary ---
Demographics + + + | Address | [address] | | | [place] [address] | + + + | Home Phone | | + + + | Preferred Language | Unknown | + + + | Marital Status | | + + + | Mormonism Affiliation | 1041 | + + + | Race | Unknown | + + + | Ethnic Group | Unknown | + + + Author + + + | Author | [facility] | | | and [place] | + + + | Organization | [facility] | | | and [place] | + + + | Address | Unknown | + + + | Phone | Unavailable | + + + Support + + + + + | Name | Relationship | Address | Phone | + + + + + | Lula Kerr | ECON | [address] | | | | | [place] | | | | | [address] | | + + + + + Care Team Providers + +------+ + | Care Space Operations Officer Name | Role | Phone | + +------+ + PCP | Unavailable | + +------+ + Encounter Details +--------+ + + + + | Date | Type | Department | Care Team | Description | +--------+ + + + + | 02/25/ | Hospital | [facility] | Ana Abebe | | | 2006 | Encounter | MED CTR EMERGENCY | Rolan Forrester MD [address] | | | | | CENTER [address] | [facility] | | | | | [place] | [place] [address] | | | | | [address] | [phone] | | | | | [phone] | | | +--------+ + + + [...] | Visit | | DO Rolan [address] | | | | | | [address] | | | | | | [place] | | | | | | [address] | | | | | | | | +--------+ + + + + | 09/25/ | Office | Cardiology | Sheldon Spence | | | 2019 | Visit | | MD [address] | | | | | | [place] | | | | | | [place] | | | | | | [address] | | | | | | | [...] [place] | | | | | | [address] | | | | | | | | +--------+ + + + + documented as of this encounter Visit Diagnoses Not on filedocumented in this encounter"
--- OUTSIDE RECORDS SUMMARY | ~2019-07-14 | XMS | Encounter Summary ---
Demographics + + + | Address | [address] | | | [place] [address] | + + + | Home Phone [...] + | Lula Kerr | ECON | [address] | | | | | [place] | | | | | [address] | | + + + + + Care Team Providers + +------+ + | Care Replenishment Analyst Name | Role | Phone | + [...] | | | | | [address] | [place] | | | | | [place] | [address] | | | | | [address] | | | | | | [phone] | | | +--------+ + + + [...] | | patency. Despite LMA seal of [id number], when positioned fully | | | 4 [...] 2018 | Visit | | DO Rolan [address] [place] [address] | | | | | | [address] | | | | | | [place] | | | | | | [address] | | | | | | | | +--------+ + + + + | 09/25/ | Office | Cardiology | Sheldon Spence | | | 2019 | Visit | | MD [address] | | | | | | [place] | | | | | | [place] | | | | | | [address] | | | | | | | [...] [place] | | | | | | [address] | | | | | | | [...]
--- OUTSIDE RECORDS SUMMARY | ~2019-07-14 | XMS | Encounter Summary ---
Demographics + + + | Address | [address] | | | [place] [address] | + + + | Home Phone [...] + | Lula Kerr | ECON | [address] | | | | | [place] | | | | | [address] | | + + + + + Care Team Providers + +------+ + | Care Optomechanical Engineer Name | Role | Phone | + +------+ + | Gregory Drummond MD | PCP | | + +------+ + Encounter Details +--------+---------+ + + + | Date | Type | Department | Care Team | Description | +--------+---------+ + + + | 09/16/ | [facility] | [facility] | Charisse Santana | Left Cataract | | 2015 | | MED CTR OR INTRA OP | MD [address] | Extraction w/ IOL | | | | [address] | [place]REDA [place], | Implant | | | | [place], [place] | [place] [address] | | | | | [address] | [phone] | | | | | [phone] | | | +--------+---------+ + + + [...] colors. The IOL normally lasts a lifetime. [id number] [employer]. [address] [place] [address]. All righ ts reserved. This information is [...] 2018 | Visit | | DO Rolan [address] [place] [address] | | | | | | [address] | | | | | | [place] | | | | | | [phone] | | | | | | | | +--------+ + + + + | 09/25/ | Office | Cardiology | Sheldon Spence | | | 2019 | Visit | | MD [address] | | | | | | [place] | | | | | | [place] | | | | | | [phone] | | | | | | | [...] [place] | | | | | | [address] | | | | | | | [...] + | [facility] | [address] | [place] | [phone] | | [facility] | | [address] | | | - LABORATORY | | | | + + + + + | [facility] | [address] | [place] | | | [facility] | | [address] | | | - LABORATORY | | [...]
--- OUTSIDE RECORDS SUMMARY | ~2019-07-14 | XMS | Encounter Summary ---
Demographics + + + | Address | [address] | | | [place] [address] | + + + | Home Phone | | + + + | Preferred Language | Unknown | + + + | Marital Status | | + + + | Sabianist Affiliation | 1041 | + + + | Race | Unknown | + + + | Ethnic Group | Unknown | + + + Author + + + | Author | [facility] | | | and [place] | + + + | Organization | [facility] | | | and [place] | + + + | Address | Unknown | + + + | Phone | Unavailable | + + + Support + + + + + | Name | Relationship | Address | Phone | + + + + + | Lula Kerr | ECON | [address] | | | | | [place] | | | | | [address] | | + + + + + Care Team Providers + +------+ + | Care Cad Technician Name | Role | Phone | + +------+ + PCP | Unavailable | + +------+ + Encounter Details +--------+ + + + + | Date | Type | Department | Care Team | Description | +--------+ + + + + | 04/09/ | Hospital | [facility] | Gregory Drummond MD | | | 2003 - | Encounter | MED CTR GENERIC IP | [address] | | | | | CONV DEPT [address] | [place], [place] | | | 05/15/ | | [place], | [address] | | | 2003 | | [place] [address] | [phone] | | | | | [phone] | | | +--------+ + + + [...] | Visit | | DO Rolan [address] | | | | | | [address] | | | | | | [place] | | | | | | [address] | | | | | | | | +--------+ + + + + | 09/25/ | Office | Cardiology | Sheldon Spence | | | 2019 | Visit | | MD [address] | | | | | | [place] | | | | | | [place] | | | | | | [address] | | | | | | | [...] [place] | | | | | | [address] | | | | | | | | +--------+ + + + + documented as of this encounter Visit Diagnoses Not on filedocumented in this encounter"
--- OUTSIDE RECORDS SUMMARY | ~2019-07-14 | XMS | Encounter Summary ---
Demographics + + + | Address | [address] | | | [place] [address] | + + + | Home Phone [...] + | Lula Kerr | ECON | [address] | | | | | [place] | | | | | [address] | | + + + + + Care Team Providers + +------+ + | Care Fiberglass Autobody Repairer Name | Role | Phone | + +------+ + | Gregory Drummond MD | PCP | | + +------+ + Encounter Details +--------+ + + + + | Date | Type | Department | Care Team | Description | +--------+ + + + + | 05/23/ | Hospital | [facility] | Velasquez Hayes MD | Complication of | | 2019 | Encounter | MED CTR IR INTRA OP | [address] | arteriovenous | | | | [address] | [place], [place] | dialysis fistula, | | | | [place], [place] | [address] | initial encounter; | | | | [address] | | ESRD (end stage | | | | [phone] | | renal disease) on | | [...] the Renal diet, please call the [facility] er at [phone] or the [facility] at [phone]. FISTULOGRAM SITE CARE * If you have [...] concerns after business hours, please call the [facility] at [phone]. YOUR DOCTOR'S OFFICE NUMBER IS Recovery After [...] You can't be awakened Date Last Reviewed: 05/11/201619993066-2311 [employer] [facility]. [address] [place] [address], [place] [address]. All righ ts reserved. This information is [...] | Visit | | DO Rolan [address] [place] [address] | | | | | | [address] | | | | | | [place] | | | | | | [address] | | | | | | | | +--------+ + + + + | 09/25/ | Office | Cardiology | Sheldon Spence | | | 2019 | Visit | | MD [address] | | | | | | [place] | | | | | | [place] | | | | | | [address] | | | | | | | [...] [place] | | | | | | [address] | | | | | | | [...] [address] | [place] | [phone] | | [facility] | | [address] | | | - LABORATORY | | | | + + + + + IR Angiogram Upper Extremity Right (12/14/2018 3:46 PM PDT) + + | Specimen | + + | | + + + + -----+ | Narrative | Performed At | + + -----+ | CLINICAL DATA: | [facility] | | Poor fistula flow COMPARISON STUDIES: None. PRIMARY SPARERIBS TRIMMER: | | | Velasquez Hayes MD, PhD, [facility] OPERATIONS:1. Ultrasound-guided right | | | cephalic [...] Patient | | | washeparinized. A 6 Samoan sheath was placed. A 6 x 40 [...] STUDIES: None. | | | | PRIMARY SPARERIBS TRIMMER: Velasquez Hayes MD, PhD, RPVI | | [...] Patient was | | heparinized. A 6 Samoan sheath was placed. A 6 x 40 [...] [address] | [place] | [phone] | | [facility] | | [address] | | | - LABORATORY | | [...]
--- OUTSIDE RECORDS SUMMARY | ~2019-07-14 | XMS | Encounter Summary ---
Demographics + + + | Address | [address] | | | [place] [address] | + + + | Home Phone [...] + | Lula Kerr | ECON | [address] | | | | | [place] | | | | | [address] | | + + + + + Care Team Providers + +------+ + | Care Finish Repairer Name | Role | Phone | [...] | | | | disease) on | [place], | [address] | | | | | dialysis | [place] | [place], | | | | | ([facility]) | [address] | [place] [address] | | | | | Procedures | Phone: | Phone: | | | | | [place] ESRD | [phone] | [phone] | | | | | RELATED SVC | Fax: | Fax: | | | | | MONTHLY | [phone] | [phone] | | | | | 20&/> YR [...] | | [address] | [place], [address] | dialysis (HCC) | | | | [place], [place] | [place], [place] | (Primary Dx) | | | | [address] | [address] | | | | | [phone] | | | +--------+ + + + [...] is on thrice weekly dialysis at the [facility] in [place], [place]. He is seen on the MWF [...] did a 2 view CXR at the [facility]. I had the im age transferred to the image library at [facility]. It does show positive cardi omegaly,, and [...] by Maty Tian DO. 05/26/19 15:39 CC: Forman Sri Osorio MD tMaxine morgan DO - [...] | Visit | | DO Rolan [address] [place] [address] | | | | | | [address] | | | | | | [place] | | | | | | [address] | | | | | | | | +--------+ + + + + | 09/25/ | Office | Cardiology | Sheldon Spence | | | 2019 | Visit | | [address] | | | | | | [facility] | | | | | | [...] [place] | | | | | | [address] | | | | | | | [...]
--- OUTSIDE RECORDS SUMMARY | ~2019-07-14 | XMS | Encounter Summary ---
Demographics + + + | Address | [address] | | | [place] [address] | + + + | Home Phone [...] + | Lula Kerr | ECON | [address] | | | | | [place] | | | | | [address] | | + + + + + Care Team Providers + +------+ + | Care Mutual Fund Manager Name | Role | Phone | + +------+ + | Gregory Drummond MD | PCP | | + +------+ + Encounter Details +--------+ + + + + | Date | Type | Department | Care Team | Description | +--------+ + + + + | 12/13/ | Orders Only | [facility] | Silvina Alcantar W, | Complication of | | 2019 | | NEPHROLOGY [address] | [address] | arteriovenous | | | | [address] | [address] [place] | dialysis fistula, | | | | [place], [place] | [place] [address] | initial encounter | | | | [address] | [phone] | (Primary Dx); ESRD | | | | [phone] | | (end stage renal | | | | | | disease) on dialysis | | | | | | ([facility]) | +--------+ + + + + Social [...] | Visit | | DO Rolan [address] | | | | | | [address] | | | | | | [place] | | | | | | [address] | | | | | | | | +--------+ + + + + | 09/25/ | Office | Cardiology | Sheldon Spence | | | 2019 | Visit | | MD [address] | | | | | | [place] | | | | | | [place] | | | | | | [address] | | | | | | | [...] | | | | | [address] [place], [place] | | | | | | [address] | | | | | | | | +--------+ + + + + documented as of this encounter Results IR Angiogram Upper Extremity Right (12/14/2018 3:46 PM PDT) + + | Specimen | + + | | + + + + -----+ | Narrative | Performed At | + + -----+ | CLINICAL DATA: | [facility] | | Poor fistula flow COMPARISON STUDIES: None. PRIMARY ELECTRIC RAZOR MECHANIC: | | | Velasquez Hayes MD, PhD, [...] Patient | | | washeparinized. A 6 Norwegian sheath was placed. A 6 x 40 [...] STUDIES: None. | | | | PRIMARY ELECTRIC RAZOR MECHANIC: Velasquez Hayes MD, PhD, RPVI | | [...] Patient was | | heparinized. A 6 Norwegian sheath was placed. A 6 x 40 [...] Complication of arteriovenous dialysis fistula, initial encounter - Primary | + + | ESRD [...]
--- OUTSIDE RECORDS SUMMARY | ~2019-07-14 | XMS | Encounter Summary ---
Demographics + + + | Address | [address] | | | [place] [address] | + + + | Home Phone [...] + | Lula Kerr | ECON | [address] | | | | | [place] | | | | | [address] | | + + + + + Care Team Providers + +------+ + | Care Staff Developer Name | Role | Phone | + +------+ + | Gregory Drummond MD | PCP | | + +------+ + Reason for Visit + + + | Reason | Comments | + + + | Blood In Stool | | + + + Auth/Cert +--------+--------+ + + + + | Status | Reason | Specialty | Diagnoses / | Referred By | Referred To | | | | | Procedures | Contact | Contact | +--------+--------+ + + + + | | | | | | | +--------+--------+ + + + + Encounter Details +--------+ + + + + | Date | Type | Department | Care Team | Description | +--------+ + + + + | 12/11/ | Emergency | [facility] | V[place], | Gastrointestinal | | 2016 | | [facility] | Gomez Batres MD [address] | hemorrhage, | | | | CENTER [address] | [address] | unspecified | | | | [place] | [place] [address] | gastrointestinal | | | | [address] | [phone] | hemorrhage type | | | | [phone] | | (Primary Dx) | +--------+ + + + + Social [...] + + + | Blood Pressure | 115/65 | 12/12/2015 10:58 PM | | | | | PDT | | + + + + + | Pulse | 67 | 12/12/2015 10:58 PM | | | | | PDT | | + + + + + | Temperature | 36.1 C (97 F) | 12/12/2015 7:50 PM | | | | | PDT | | + + + + + | Respiratory Rate | 16 | 12/12/2015 10:58 PM | | | | | PDT | | + + + + + | Oxygen Saturation | 95% | 12/12/2015 10:58 PM | | | | | PDT | | + + + + + | Inhaled Oxygen | - | - | | | Concentration | | | | + + + + + | Weight | 124.7 kg (275 lb) | 12/12/2015 7:50 PM | | | | | PDT | | + + + + + | Height | 170.2 cm (5' 7") | 12/12/2015 7:50 PM | | | | | PDT | | + + + + + | Body Mass Index | 43.07 | 12/12/2015 7:50 PM | | | | | PDT | | + + + + + documented in this encounter Discharge Instructions Instructions Gomez Coley MD - 12/12/2015Hold your Coumadin tonight. You may nia l the ER tomorrow to find out what your INR is. Call [phone]. I would like to esequiel p you on the very low end of your therapeutic level until the bleeding has stopped. Tuesday morning, call Dr. Medina to arrange for GI consultation. If necessary, you may need t o see Dr. Drummond for a referral At any point if your symptoms worsen, if the bleeding picks up, if you become lightheaded r eturn to the ER documented in this encounter Medications at Time [...] | Visit | | DO Rolan [address] | | | | | | [address] | | | | | | [place] | | | | | | [address] | | | | | | | | +--------+ + + + + | 09/25/ | Office | Cardiology | Sheldon Spence | | | 2019 | Visit | | [address] | | | | | | [address] | | | | | | [place] | | | | | | [address] | | | | | | | [...] [place] | | | | | | [address] | | | | | | | | +--------+ + + + + documented as of this encounter Procedures + +--------+ + + + | Procedure Name | Priori | Date/Time | Associated Diagnosis | Comments | | | ty | | | | + +--------+ + + + | XR CHEST PA AND | STAT | 12/12/2015 | | Results for this | | LATERAL | | 9:46 PM | | procedure are in the | | | | PDT | | results section. | + +--------+ + + + | CT ABDOMEN PELVIS WO | STAT | 12/12/2015 | | Results for this | | CONTRAST | | 9:44 PM | | procedure are in the | | | | PDT | | results section. | + +--------+ + + + | POCT OCCULT BLOOD | STAT | 12/12/2015 | | Results for this | | STOOL, OTHER THAN | | 9:18 PM | | procedure are in the | | COLORECTAL NEOPLASM | | PDT | | results section. | | SCREENING | | | | | + +--------+ + + + | EXTRA GOLD TOP TUBE | Routin | 12/12/2015 | | Results for this | | | e | 8:51 PM | | procedure are in the | | | | PDT | | results section. | + +--------+ + + + | EXTRA BLUE TOP TUBE | Routin | 12/12/2015 | | Results for this | | | e | 8:51 PM | | procedure are in the | | | | PDT | | results section. | + +--------+ + + + | PROTIME INR | Add-On | 12/12/2015 | | Results for this | | | | 8:51 PM | | procedure are in the | | | | PDT | | results section. | + +--------+ + + + | CBC WITH | STAT | 12/12/2015 | | Results for this | | DIFFERENTIAL | | 8:49 PM | | procedure are in the | | | | PDT | | results section. | + +--------+ + + + | B TYPE NATRIURETIC | STAT | 12/12/2015 | | Results for this | | PEPTIDE | | 8:49 PM | | procedure are in the | | | | PDT | | results section. | + +--------+ + + + | COMPREHENSIVE | STAT | 12/12/2015 | | Results for this | | METABOLIC PANEL | | 8:49 PM | | procedure are in the | | | | PDT | | results section. | + +--------+ + + + documented in this encounter Results XR Chest PA and Lateral (12/12/2015 9:46 PM PDT) + + | Specimen | + + | | + + + + + | Narrative | Performed At | + + + | XR CHEST PA AND LATERAL 12/12/2015 8:26 PM HISTORY: Hypoxemia. | [facility] | | COMPARISON: Multiple priors. Findings: Sternotomy wires are | | | present. A left pacemaker is observed with leads to the heart. The | | | heart is enlarged. There is atherosclerosis of the aorta. Mediastinum | | | is unremarkable. Central pulmonary vasculature is normal. Mild | | | scarring are in the lower lobes. No pleural effusion or pneumothorax | | | is seen. Mild right curvature of the thoracic spine is observed along | | | with mild spondylosis. IMPRESSION - No acute findings. | | | Cardiomegaly. Dictated and Signed by: Bernardo Spencer MD | | | Electronically signed: 12/13/2015 2:47 PM | | + + + + + | Procedure Note | + + | Lalo, Rad Results In - 12/13/2015 2:50 PM PDT XR CHEST PA AND LATERAL 12/12/2015 8:26 | | PMHISTORY: Hypoxemia.COMPARISON: Multiple priors.Findings:Sternotomy wires are present. | | A left pacemaker is observed with leads to theheart. The heart is enlarged. There is | | atherosclerosis of the aorta. Mediastinumis unremarkable. Central pulmonary vasculature | | is normal. Mild scarring are inthe lower lobes. No pleural effusion or pneumothorax is | | seen. Mild rightcurvature of the thoracic spine is observed along with mild | | spondylosis.IMPRESSION -No acute findings.Cardiomegaly.Dictated and Signed by: Bernardo | | MD Tj Electronically signed: 12/13/2015 2:47 PM | |heart. The heart is enlarged. There is atherosclerosis of the aorta. Mediastinum | |is unremarkable. Central pulmonary vasculature is normal. Mild scarring are in | |the lower lobes. No pleural effusion or pneumothorax is seen. Mild right | |curvature of the thoracic spine is observed along with mild spondylosis. | | | |IMPRESSION - | |No acute findings. | | | |Cardiomegaly. | | | |Dictated and Signed by: Bernardo Spencer MD | | Electronically signed: 12/13/2015 2:47 PM | + + + +---------+ + + | Performing | Address | City/State/Zipcode | Phone Number | | Organization | | | | + +---------+ + + | [facility] | | | | + +---------+ + + CT Abdomen Pelvis wo Contrast (12/12/2015 9:44 PM PDT) + + | Specimen | + + | | + + + + + | Narrative | Performed At | + + + | CT ABDOMEN PELVIS WO CONTRAST 12/12/2015 8:26 PM HISTORY: | [facility] | | Abdominal pain. COMPARISON: None. PROTOCOL: Axial images of | | | the abdomen and pelvis were obtained. Coronal and sagittal | | | reformations were acquired. FINDINGS: There is mild scarring in | | | the lung bases. The heart is enlarged. Pacer wires are visualized | | | within the heart. There is adjacent hardware. The liver | | | demonstrates normal parenchyma. A small calcified gallstone is | | | visualized in the region of the gallbladder neck with no evidence for | | | cholecystitis at this time. Biliary ducts are unremarkable. The | | | spleen is unremarkable. The pancreas demonstrates normal parenchyma | | | and a normal pancreatic duct. A 2.0 cm low-attenuation nodule is seen | | | of the right adrenal, likely an adenoma. The left adrenal is normal. | | | There is mild atrophy of the bilateral kidneys. Visualized | | | ureters are normal. Stomach, small bowel, and terminal ileum are | | | normal. The appendix has a normal appearance. There is sigmoid | | | diverticulosis with no evidence for diverticulitis There is | | | moderate to severe atherosclerosis of the aorta. Extensive | | | atherosclerosis is visualized of the iliac arteries. There is no | | | significant abnormality in the portal veins, mesenteric veins, or | | | systemic veins. No enlarged lymph nodes are visualized within the | | | omentum or retroperitoneum. There is no evidence for ascites or | | | free air. Bladder is normal. 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 Prostate and | | | seminal vesicles are normal. Small bilateral inguinal hernias | | | containing fat are seen. 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 There is mild | | | levoscoliosis. Extensive spondylosis is seen. Multilevel disc | | | narrowing is observed most significant at L3-4, which is moderate to | | | severe. Multilevel vacuum discs are present. IMPRESSION - | | | Sigmoid diverticulosis with no evidence for diverticulitis. Small | | | calcified gallstone at gallbladder neck with no evidence for | | | cholecystitis. Cardiomegaly. A preliminary report was sent by | | | [email or web address] on 12/12/2015 at 10:03 PM with no significant | | | discrepancy. Dictated and Signed by: Bernardo Spencer MD | | | Electronically signed: 12/13/2015 1:30 PM | | + + + + + | Procedure Note | + + | Lalo, Rad Results In - 12/13/2015 1:[address] ABDOMEN PELVIS WO CONTRAST 12/12/2015 | | 8:26 PMHISTORY: Abdominal pain.COMPARISON: None.PROTOCOL: Axial images of the abdomen | | and pelvis were obtained. Coronal andsagittal reformations were acquired.FINDINGS:There | | is mild scarring in the lung bases. The heart is enlarged. Pacer wires arevisualized | | within the heart. There is adjacent hardware.The liver demonstrates normal parenchyma. A | | small calcified gallstone isvisualized in the region of the gallbladder neck with no | | evidence forcholecystitis at this time. Biliary ducts are unremarkable.The spleen is | | unremarkable. The pancreas demonstrates normal parenchyma and anormal pancreatic duct. A | | 2.0 cm low-attenuation nodule is seen of the rightadrenal, likely an adenoma. The left | | adrenal is normal.There is mild atrophy of the bilateral kidneys. Visualized ureters are | | normal.Stomach, small bowel, and terminal ileum are normal. The appendix has a | | normalappearance. There is sigmoid diverticulosis with no evidence for | | diverticulitisThere is moderate to severe atherosclerosis of the aorta. | | Extensiveatherosclerosis is visualized of the iliac arteries. There is no | | significantabnormality in the portal veins, mesenteric veins, or systemic veins. No | | enlarged lymph nodes are visualized within the omentum or retroperitoneum.There is no | | evidence for ascites or free air.Bladder is normal. There is narrowing of the bladder | | that is likely related topelvic lipomatosis.Prostate and seminal vesicles are | | normal.Small bilateral inguinal hernias containing fat are seen. 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 Extensive spondylosis is seen. Multilevel discnarrowing is observed | | most significant at L3-4, which is moderate to severe.Multilevel vacuum discs are | | present.IMPRESSION -Sigmoid diverticulosis with no evidence for diverticulitis.Small | | calcified gallstone at gallbladder neck with no evidence forcholecystitis.Cardiomegaly.A | | preliminary report was sent by [email or web address] on 12/12/2015 at 10:03 PM withno | | significant discrepancy.Dictated and Signed by: Bernardo Spencer MD Electronically signed: | | 12/13/2015 1:30 PM | |atherosclerosis is visualized of the iliac arteries. There is no significant | |abnormality in the portal veins, mesenteric veins, or systemic veins. | | | |No enlarged lymph nodes are visualized within the omentum or retroperitoneum. | | | |There is no evidence for ascites or free air. | | | |Bladder is normal. There is narrowing of the bladder that is likely related to | |pelvic lipomatosis. | | | |Prostate and seminal vesicles are normal. | | | |Small bilateral inguinal hernias containing fat are seen. 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 | |There is mild levoscoliosis. Extensive spondylosis is seen. Multilevel disc | |narrowing is observed most significant at L3-4, which is moderate to severe. | |Multilevel vacuum discs are present. | | | |IMPRESSION - | |Sigmoid diverticulosis with no evidence for diverticulitis. | | | |Small calcified gallstone at gallbladder neck with no evidence for | |cholecystitis. | | | |Cardiomegaly. | | | |A preliminary report was sent by [email or web address] on 12/12/2015 at 10:03 PM with | |no significant discrepancy. | | | |Dictated and Signed by: Bernardo Spencer MD | | Electronically signed: 12/13/2015 1:30 PM | + + + +---------+ + + | Performing | Address | City/State/Zipcode | Phone Number | | Organization | | | | + +---------+ + + | [facility] | | | | + +---------+ + + POCT Occ Bld Stl not Colorectal Neoplasm (12/12/2015 9:18 PM PDT) + + + + + + | Component | Value | Ref Range | Performed | Pathologist | | | | | At | Signature | + + + + + + | Occult | Positive (A) | Negative | | | | Blood x1, | | | | | | Stool, POC | | | | | + + + + + + | Occult | | Negative | | | | Blood x2, | | | | | | Stool, POC | | | | | + + + + + + | Occult | | Negative | | | | Blood x3, | | | | | | Stool, POC | | | | | + + + + + + | Occult | Acceptable | | | | | Blood QC | | | | | | Result | | | | | + + + + + + | Card Lot # | [id number] | | | | + + + + + + | Card | 8-17 | | | | | Expiration | | | | | | Date | | | | | + + + + + + | Developer | | | | | | Lot # | | | | | + + + + + + | Developer | | | | | | Exp. Date | | | | | + + + + + + + + | Specimen | + + | Stool specimen | | (specimen) | + + Protime INR (12/12/2015 8:51 PM PDT) + +-------+ + + + | Component | Value | Ref Range | Performed | Pathologist | | | | | At | Signature | + +-------+ + + + | Prothrombin | | 11.3 - 13.9 | [facility] | | | Time | | seconds | [facility] | | | | | | MEDICAL | | | | | | CENTER - | | | | | | LABORATORY | | + +-------+ + + + | INR | | 0.90 - 1.10 | [facility] | | | | | [...] Performed At | + + + | See scanner | [facility] | | report from [facility] for results. | [facility] | | | [facility] | | | - LABORATORY | + + + + + + + + | Performing | Address | City/State/Zipcode | Phone Number | | Organization | | | | + + + + + | [facility] | [address] | [place], [place] | [phone] | | [facility] | | [address] | | | - LABORATORY | | | | + + + + + Extra Gold Top Tube (12/12/2015 8:51 PM PDT) + +-------+ + + + | Component | Value | Ref Range | Performed | Pathologist | | | | | At | Signature | + +-------+ + + + | Extra Gold | Done | | [facility] | | [...] + | [facility] | [address] | [place] | [phone] | | [facility] | | [address] | | | - LABORATORY | | | | + + + + + Extra Blue Top Tube (12/12/2015 8:51 PM PDT) + +-------+ + + + | Component | Value | Ref Range | Performed | Pathologist | | | | | At | Signature | + +-------+ + + + | Extra Blue | Done | | [facility] | | | Top Tube | | | [facility] | | | | | | MEDICAL [...] [address] | [place] | [phone] | | [facility] | | [address] | | | - LABORATORY | | | | + + + + + B Type Natriuretic Peptide (12/12/2015 8:49 PM PDT) + +---------+ + + + | Component | Value | Ref Range | Performed | Pathologist | | | | | At | Signature | + +---------+ + + + | BNP | 169 (H) | <100 pg/mL | [facility] | [...] [address] | [place] | [phone] | | [facility] | | [address] | | | - LABORATORY | | | | + + + + + Comprehensive Metabolic Panel (12/12/2015 8:49 PM PDT) + + + + + + | Component | Value | Ref Range | Performed | Pathologist | | | | | At | Signature | + + + + + + | Na | 141 | 136 - 149 | [facility] | | | | | mmol/L | [facility] | | | | | | MEDICAL | | | | | | CENTER - | | | | | | LABORATORY | | + + + + + + | K | 4.4 | 3.5 - 5.1 | [facility] | [...] + + + + | CO2 | 28 | 24 - 31 mmol/L | [facility] [...] + + + + | Glucose | 141 (H) | 70 - 109 mg/dL | [facility] | | | | | | [facility] | | | | | | MEDICAL | | | | | | CENTER - | | | | | | LABORATORY | | + + + + + + | BUN | 64 (H) | 7 - 18 mg/dL | [facility] | | | | | | [facility] | | | | | | MEDICAL | | | | | | CENTER - | | | | | | LABORATORY | | + + + + + + | Creatinine | 1.73 (H) | 0.60 - 1.30 | [facility] | | | | | mg/dL | [facility] | | | | | | [facility] | | | | | | CENTER - | | | | | | LABORATORY | | + + + + + + | eGFR if not | 39 (L)Comment: | >=60 | [facility] | | | | GLOMERULAR FILTRATION | mL/min/1.73m2 | [facility] | | | [facility] | RATE,ESTIMATED | | MEDICAL | | | | mL/min/1.31r3Ypfb than | | CENTER - | | [...] + + + + | Albumin | 3.1 (L) | 3.2 - 5.0 g/dL | [facility] | | | | | | [facility] | | | | | | MEDICAL | | | | | | CENTER - | | | | | | LABORATORY | | + + + + + + | Bilirubin | 0.5 | 0.1 - 1.5 mg/dL | [facility] [...] + + + + | AST | 33 | 10 - 42 U/L | [facility] [...] + + + + | Alkaline | 103 | 40 - 110 U/L | [facility] | | | Phosphatase | | | [facility] | | | | | | MEDICAL | | | | | | CENTER - | | | | | | LABORATORY | | + + + + + + | Globulin | 3.4 | 2.1 - 3.8 g/dL | [facility] | | | | | | [facility] | | | | | | [facility] | | | | | | CENTER - | | | | | | LABORATORY | | + + + + + + | Albumin/Becky | 0.9 | 0.8 - 2.0 | [facility] | | | bulin Ratio | | | [facility] | | | | | | MEDICAL | | | | | | CENTER - | | | | | | LABORATORY | | + + + + + + | BUN/Creatin | 37.0 | | [facility] | | | ine [...] [address] | [place] | [phone] | | [facility] | | [address] | | | - LABORATORY | | | | + + + + + CBC with Differential (12/12/2015 8:49 PM PDT) + + + + + + | Component | Value | Ref Range | Performed | Pathologist | | | | | At | Signature | + + + + + + | WBC | 7.2 | 4.0 - 11.0 K/uL | [facility] | | | | | | [facility] | | | | | | MEDICAL | | | | | | CENTER - | | | | | | LABORATORY | | + + + + + + | RBC | 5.02 | 4.30 - 5.70 | [facility] | [...] + + + + | Hematocrit | 41.8 | 40.0 - 51.0 % | [facility] | | | | | | [facility] | | | | | | MEDICAL | | | | | | CENTER - | | | | | | LABORATORY | | + + + + + + | MCV | 83.2 | 83.0 - 101.0 fL | [facility] | | | | | | [facility] | | | | | | MEDICAL | | | | | | CENTER - | | | | | | LABORATORY | | + + + + + + | MCH | 25.5 (L) | 28.0 - 35.0 pg | [facility] | | | | | | [facility] | | | | | | MEDICAL | | | | | | CENTER - | | | | | | LABORATORY | | + + + + + + | MCHC | 30.6 (L) | 32.0 - 36.0 | [facility] | | | | | g/dL | [facility] | | | | | | MEDICAL | | | | | | CENTER - | | | | | | LABORATORY | | + + + + + + | RDW-CV | 18.7 (H) | <15.0 % | [facility] | | | | | | [facility] | | | | | | MEDICAL | | | | | | CENTER - | | | | | | LABORATORY | | + + + + + + | Platelet | 224 | 140 - 440 K/uL | [facility] | | | Count | | | [facility] | | | | | | MEDICAL | | | | | | CENTER - | | | | | | LABORATORY | | + + + + + + | MPV | 8.0 | fL | [facility] | | | | | | [facility] | | | | | | MEDICAL | | | | | | CENTER - | | | | | | LABORATORY | | + + + + + + | % | 68.0 | 45.0 - 82.0 % | [facility] | | | Neutrophils | | | [facility] | | | | | | MEDICAL | | | | | | CENTER - | | | | | | LABORATORY | | + + + + + + | % | 21.0 | 20.0 - 45.0 % | [facility] | | | Lymphocytes | | | [facility] | | | | | | MEDICAL | | | | | | CENTER - | | | | | | LABORATORY | | + + + + + + | % Monocytes | 9.5 | 4.0 - 12.0 % | [facility] | | | | | | [facility] | | | | | | MEDICAL | | | | | | CENTER - | | | | | | LABORATORY | | + + + + + + | % | 1.3 | 0.0 - 5.0 % | [facility] [...] + + + + | Absolute | 4.90 | 1.80 - 8.50 | [facility] | | | Neutrophils | | K/uL | [facility] | | | | | | MEDICAL | | | | | | CENTER - | | | | | | LABORATORY | | + + + + + + | Absolute | 1.50 | 0.60 - 3.20 | [facility] | [...] | Absolute | 0.00 | 0.00 - 0.10 | [facility] | [...] [facility]. | [address] | [place] | [phone] | | [facility] | | [address] | | | - LABORATORY | | | | + + + + + documented in this encounter Visit Diagnoses + + | Diagnosis | + + | Gastrointestinal hemorrhage, unspecified gastrointestinal hemorrhage type - Primary | + + documented in this encounter
--- OUTSIDE RECORDS SUMMARY | ~2019-07-14 | XMS | Encounter Summary ---
Demographics + + + | Address | [address] | | | [place] [address] | + + + | Home Phone [...] + | Lula Kerr | ECON | [address] | | | | | [place] | | | | | [address] | | + + + + + Care Team Providers + +------+ + | Care Licensed Marine Engineer Name | Role | Phone | + +------+ + | Gregory Drummond MD | PCP | | + +------+ + Encounter Details +--------+ + + + + | Date | Type | Department | Care Team | Description | +--------+ + + + + | 08/15/ | Imaging | [facility] | Provider, | | | 2019 | Exam | [facility] | [address] | | | | | IMAGING | [address] | | | | | [phone] | [place] [address] | | +--------+ + + + + [...] | Visit | | DO [address] | | | | | | [address] | | | | | | [place] | | | | | | [id number] | | | | | | | | +--------+ + + + + | 09/25/ | Office | Cardiology | hSeldon Spence | | | 2019 | Visit | | MD [address] | | | | | | [address] | | | | | | [place] | | | | | | [address] | | | | | | | [...] [place] | | | | | | [address] | | | | | | | | +--------+ + + + + documented as of this encounter Procedures + +--------+ + + + | Procedure Name | Priori | Date/Time | Associated Diagnosis | Comments | | | ty | | | | + +--------+ + + + | CT ABDOMEN WO | Routin | 05/18/2018 | | Results for this | | CONTRAST | e | 11:40 AM | | procedure are in the | | | | PDT | | results section. | + +--------+ + + + documented in this encounter Results CT Abdomen wo Contrast (05/18/2018 11:40 AM PDT) + + | Specimen | [...]
--- OUTSIDE RECORDS SUMMARY | ~2019-07-14 | XMS | Encounter Summary ---
Demographics + + + | Address | [address] | | | [place] [address] | + + + | Home Phone [...] + | Lula Kerr | ECON | [address] | | | | | [place] | | | | | [address] | | + + + + + Care Team Providers + +------+ + | Care Air Brake Worker Name | Role | Phone | + +------+ + PCP | Unavailable | + +------+ + Encounter Details +--------+ + + + + | Date | Type | Department | Care Team | Description | +--------+ + + + + | 03/24/ | Hospital | [facility] | Gregory Drummond MD | | | 2003 - | Encounter | MED CTR MED ON[facility] | [address] [facility] | | | | | [address] | [place], [place] | | | 04/09/ | | [place] [address] | [address] | | | 2003 | | [phone] | [phone] | | | | | | | [...] | Visit | | DO [address] | | | | | | [address] | | | | | | [place] | | | | | | [address] | | | | | | | | +--------+ + + + + | 09/25/ | Office | Cardiology | Sheldon Spence | | | 2019 | Visit | | [address] | | | | | | [place] | | | | | | [place] | | | | | | [address] | | | | | | | [...] [place] | | | | | | [address] | | | | | | | | +--------+ + + + + documented as of this encounter Visit Diagnoses Not on filedocumented in this encounter"
--- OUTSIDE RECORDS SUMMARY | ~2019-07-14 | XMS | Encounter Summary ---
Demographics + + + | Address | [address] | | | [place] [address] | + + + | Home Phone | | + + + | Preferred Language | Unknown | + + + | Marital Status | | + + + | Oriental Orthodox Affiliation | 1041 | + + [...] + | Lula Kerr | ECON | [address] | | | | | [place] | | | | | [address] | | + + + + + Care Team Providers + +------+ + | Care Elementary Secretary Name | Role | Phone | + +------+ + | Greogry Drummond MD | PCP | | + [...] | | | | | Procedures | [place], [place] | [address] | | | | | DOS 07/06/19 | [address] [place] | [address] [place] | | | | | | [place], [place] | [place], [place] | | | | | | [address] | [address] Phone: | | | | | | Phone: | [phone] | | | | | | [phone] | Fax: | | | | | | Fax: | [phone] | | | | | | [phone] | | + + + + + [...] | | [place] | [place] [address] | | | | | [address] | [phone] | | | | | [phone] | | | +--------+---------+ + + + [...] encounter Patient Instructions Patient Instructions Ashley Og Clerical Adjudicator - 07/06/2019 11:30 AM PST - Explained [...] procedure is at 3[facility]45[facility] signed by Ashley Og Clerical Adjudicator at 07/06/2019 12:49 PM PST documented in this encounter Progress Notes Paul Nielson MD - 07/06/2019 11:30 AM PST Paul Nielson MD [address] [place] [address], [address] [place] [address] FAX: [phone] NEUROSURGERY HISTORY AND PHYSICAL EXAMINATION CHIEF COMPLAINT: [...] with gastric ulcer 08/20/2016 Gout Hemodialysis patient ([facility]) tue Hypercholesteremia Hyperlipidemia 10/19/2018 Hypertension Ischemic cardiomyopathy Left arm pain Left bundle branch block (LBBB) 11/18/2017 Obesity Old myocardial infarction 1998 Persistent atrial fibrillation 08/20/2016 Last Assessment & Plan: A: Persistent afib. [id number] Risk Score: 5 - 7.2% Estimated Stroke Risk Per Year HAS-BLED Score for Major Bleeding Risk: 2 - Risk: Study One - 4.1%; St udy Two - 1.88 bleeds per 100 patient years P: Unable to tolerate anticoagulation. ASA only . Overview: Last Assessment & Plan: A: Persistent afib. [id number] Risk Score: 5 - 7 .2% Estimated [...] diabetes mellitus (HCC) Venous insufficiency Ventricular tachycardia ([facility]) 12/10 - s/p ATP x1 VT (ventricular tachycardia) ([facility]) 05/31/2014 Overview: Last Assessment & Plan: A: BP a bit high. P: Given CKD, hold off increasing lisinopril unless persistently hypertensive. PAST SURGICAL HISTORY: Past Surgical History: Procedure Laterality Date AV FISTULA INSERTION Right 09/05/2018 Procedure: RIGHT arm AVF; Surgeon: Amilcar Hampton MD, FACS; Location: [facility] MAIN OR BACK SURGERY CARDIAC CATHERIZATION CARDIAC SURGERY CARDIOVASCULAR STRESS TEST 10/2018 Persantine SPECT: reversible anterior, apical. anteroseptal, inferoapical defect, EF 36% CATARACT REMOVAL WITH IMPLANT Left 09/16/2014 Procedure: Left Cataract Extraction w/ IOL Implant; Surgeon: Charisse Santana MD; Loc ation: [facility] MAIN OR CATARACT REMOVAL WITH IMPLANT Right 10/14/2014 Procedure: Right Cataract Extraction w/ IOL Implant; Surgeon: Charisse Santana MD; Lo cation: [facility] MAIN OR CORONARY ANGIOPLASTY CORONARY ARTERY BYPASS GRAFT EGD AND COLONOSCOPY N/A 12/18/2015 Procedure: EGD / COLONOSCOPY - bmi 44 - has pacemaker defibrilator ; Surgeon: Meredith forbes MD; Location: [facility] MEDICAL PROCEDURE UNIT IR PROCEDURE Right 12/14/2018 Procedure: Fistulagram; Surgeon: Velasquez Hayes MD; Location: [facility] INTERVENTIONAL RADIOLO GY KNEE SURGERY Right OTHER SURGICAL HISTORY UNLISTED PROCEDURE ARTHROSCOPY pacemaker medtronic PACEMAKER INSERTION SHUNT PLACEMENT/INSERTION Right 07/03/2018 Procedure: INSERTION SHUNT HEMODIALYSIS W/ PERMACATH; Surgeon: Melba Wallace MD; L ocation: [facility] MAIN OR TRANSTHORACIC ECHOCARDIOGRAM 10/2018 EF [...] has no apparent deficits with short or 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 MOTOR EXAM: (5 IS NORMAL) * [...] 5 Interossei 5 5 [address]B [address] Strength 5 5 Knee Flexion 5 5 [...] Last Assessment & Plan: A: Persistent afib. [id number] Risk Score: 5 - 7.2% Estimated Stroke Risk Per Year HAS-BLED Score for Major Bleeding Risk: 2 - Risk: Study One - 4.1%; St udy Two - 1.88 bleeds per 100 patient years P: Unable to tolerate anticoagulation. ASA only . Overview: Last Assessment & Plan: A: Persistent afib. [id number] Risk Score: 5 - 7 .2% Estimated [...] - s/p ATP x1 VT (ventricular tachycardia) ([facility]) 05/31/2014 Overview: Last Assessment & Plan: A: [...] | Visit | | DO Rolan [address] [place] [address] | | | | | | [address] | | | | | | [place] | | | | | | [address] | | | | | | | | +--------+ + + + + | 09/25/ | Office | Cardiology | Sheldon Spence | | | 2019 | Visit | | MD [address] | | | | | | [facility] | | | | | | [place] | | | | | | [phone] | | | | | | | [...] [place] | | | | | | [address] | | | | | | | [...] [address] | [place] | [phone] | | [facility] | | [address] | | | - LABORATORY | | [...] [address] | [place] | [phone] | | [facility] | | [address] | | | - LABORATORY | | [...]
--- OUTSIDE RECORDS SUMMARY | ~2019-07-14 | XMS | Encounter Summary ---
Demographics + + + | Address | [address] | | | [place] [address] | + + + | Home Phone [...] + | Lula Kerr | ECON | [address] | | | | | [place] | | | | | [address] | | + + + + + Care Team Providers + +------+ + | Care Communications Administrator Name | Role | Phone | + +------+ + | Gregory Drummond MD | PCP | | + +------+ + Reason for Referral Diagnostic/Screening (Routine) +--------+--------+ + + + + | Status | Reason | Specialty | Diagnoses / | Referred By | Referred To | | | | | Procedures | Contact | Contact | +--------+--------+ + + + + | Closed | | Radiology | Diagnoses | Ball Gregory | [facility] | | | | | Other | MD Rolan [address] | [address] | | | | | congestive | [address] | [place], | | | | | heart | [place], | [place] | | | | | failure | [place] | [address] | | | | | ([facility]LY [facility]) | [address] | Phone: | | | | | Procedures | Phone: | [phone] | | | | | ECHO | [phone] | Fax: | | | | | Complete | Fax: | [phone] | | | | | | [phone] | | +--------+--------+ + + + + Reason for Visit Diagnostic/Screening (Routine) +--------+--------+ + + + + | Status | Reason | Specialty | Diagnoses / | Referred By | Referred To | | | | | Procedures | Contact | Contact | +--------+--------+ + + + + | Closed | | Radiology | Diagnoses | Bhanu Gregory | [facility] | | | | | Other | MD Rolan [address] | [address] | | | | | congestive | [address] | [place], | | | | | heart | [place], | [place] | | | | | failure | [place] | [address] | | | | | (HCC) | [address] | Phone: | | | | | Procedures | Phone: | [phone] | | | | | ECHO | [phone] | Fax: | | | | | Complete | Fax: | [phone] | | | | | | [phone] | | +--------+--------+ + + + + Encounter Details +--------+ + + + + | Date | Type | Department | Care Team | Description | +--------+ + + + + | 06/16/ | Hospital | [facility] | Gregory Drummond MD | Other congestive | | 2018 | Encounter | MED CTR ECHO [address] | [address] [facility] | heart failure (HCC) | | | | [address] [place] | [place] | | | | | [place] [address] | [address] | | | | | [phone] | [phone] | | | | | | | [...] | | 2019 | Visit | | Rolan, [address] | | | | | | [address], [address] | | | | | | [place] | | | | | | [address] | | | | | | | | +--------+ + + + + | 09/25/ | Office | Cardiology | Sheldon Spence | | | 2019 | Visit | | MD [address] | | | | | | [place] | | | | | | [place] | | | | | | [address] | | | | | | | [...] [place] | | | | | | [address] | | | | | | | | +--------+ + + + + documented as of this encounter Procedures + +--------+ + + + | Procedure Name | Priori | Date/Time | Associated Diagnosis | Comments | | | ty | | | | + +--------+ + + + | ECHO COMPLETE | Routin | 06/16/2018 | Other congestive | Results for this | | | e | 3:57 PM | heart failure (HCC) | procedure are in the | | | | PST | | results section. | + +--------+ + + + documented in this encounter Results ECHO Complete (06/16/2018 3:57 PM PST) + +--------+ + + + | Component | Value | Ref Range | Performed | Pathologist | | | | | At | Signature | + +--------+ + + + | BASELINE | 122/64 | mmHg | [facility] | | | BLOOD | | | | | | PRESSURE | | | | | + +--------+ + + + | Patient | 263 | | [facility] | | | Weight | | | | | | (lbs) | | | | | + +--------+ + + + | Patient | 5'7" | | [facility] | | | Height | | | | | + +--------+ + + + | LVIDd | 7.05 | cm | [facility] | | + +--------+ + + + | FS | 18 | % | [facility] | | + +--------+ + + + | LA volume | 80.22 | mL | [facility] | | + +--------+ + + + | Aortic arch | 2.13 | cm | [facility] | | + +--------+ + + + | AV mean | 2.75 | mmHg | [facility] | | | gradient | | | | | + +--------+ + + + | Aortic | 3.73 | cm2 | [facility] | | | Valve Area | | | | | | by | | | | | | Continuity | | | | | | VTI | | | | | + +--------+ + + + | MV Area by | 5.46 | cm2 | [facility] | | | P 1/2 | | | | | | method | | | | | + +--------+ + + + | IVRT | 103.6 | msec | [facility] | | + +--------+ + + + | LVOT | 2.33 | cm | [facility] | | | diameter | | | | | + +--------+ + + + | LVOT peak | 103.64 | cm/s | [facility] | | | keyur | | | | | + +--------+ + + + | LVOT peak | 16.71 | cm | [facility] | | | VTI | | | | | + +--------+ + + + | AV peak keyur | 117 | cm/s | [facility] | | + +--------+ + + + | AV VTI | 19.11 | cm | [facility] | | + +--------+ + + + | AV peak | 5.48 | mmHg | [facility] | | | gradient | | | | | + +--------+ + + + | MV peak | 7.44 | mmHg | [facility] | | | gradient | | | | | + +--------+ + + + | MV Pressure | 40.31 | msec | [facility] | | | 1/2 time | | | | | + +--------+ + + + | LA Volume | 35 | mL/m2 | [facility] | | | Index | | | | | + +--------+ + + + | AV LVOT | 3.71 | mmHg | [facility] | | | Peak | | | | | | Gradient | | | | | + +--------+ + + + | AV LVOT | 1.74 | mmHg | [facility] | | | Mean | | | | | | Gradient | | | | | + +--------+ + + + | TR Peak | 24 | mmHg | [facility] | | | Gradient | | | | | + +--------+ + + + | TR Velocity | 244.44 | cm | [facility] | | + +--------+ + + + | LV | 8.5 | cm | [facility] | | | Diastolic | | | | | | Length 4C | | | | | + +--------+ + + + | LV Systolic | 23.84 | cm2 | [facility] | | | Area PSAX | | | | | + +--------+ + + + | LV | 35 | % | [facility] | | | Garcia's | | | | | | Biplane EF | | | | | + +--------+ + + + | AV | 41.44 | msec | [facility] | | | Acceleratio | | | | | | n Time | | | | | + +--------+ + + + | LV ED | 131.99 | ml | [facility] | | | Volume | | | | | | (Garcia's) | | | | | + +--------+ + + + | LV ED | 58 | ml/m2 | [facility] | | | Volume | | | | | | Index | | | | | + +--------+ + + + | LV ES | 78.91 | ml | [facility] | | | Volume | | | | | + +--------+ + + + | LVOT Mean | 59.28 | cm/s | [facility] | | | Velocity | | | | | + +--------+ + + + | MV A' | 3.42 | cm/s | [facility] | | | Septal | | | | | | Velocity | | | | | + +--------+ + + + | MV E' | 6.17 | cm/s | [facility] | | | Septal | | | | | | Velocity | | | | | + +--------+ + + + | MV | 883.24 | cm/s2 | [facility] | | | Deceleratio | | | | | | n [place] | | | | | + +--------+ + + + | MV | 152.77 | msec | [facility] | | | Deceleratio | | | | | | n Time | | | | | + +--------+ + + + | MV E/A | 4.36 | | [facility] | | | Ratio | | | | | + +--------+ + + + | MV Peak | 31.29 | cm/s | [facility] | | | A-Wave | | | | | + +--------+ + + + | MV Peak | 136.4 | cm/s | [facility] | | | E-Wave | | | | | + +--------+ + + + | AV Mean | 79.52 | cm/s | [facility] | | | Velocity | | | | | + +--------+ + + + | LA/Aorta | 1.76 | | [facility] | | | Ratio | | | | | + +--------+ + + + | LA Area | 26.47 | cm2 | [facility] | | + +--------+ + + + | MV E/E | 22.11 | | [facility] | | | SEPTAL | | | | | + +--------+ + + + | LA Major | 0.1911 | cm | [facility] | | + +--------+ + + + | LV ES | 35 | ml/m2 | [facility] | | | Volume | | | | | | Index | | | | | + +--------+ + + + | LV Area | 37.24 | cm2 | [facility] | | | Diastolic | | | | | + +--------+ + + + | Aortic Root | 3.64 | cm | [facility] | | | Diameter | | | | | + +--------+ + + + | IVS | 0.98 | cm | [facility] | | | Diastolic | | | | | | Thickness | | | | | | MM | | | | | + +--------+ + + + | LVPW | 1.03 | cm | [facility] | | | Diastolic | | | | | | Thickness | | | | | | MM | | | | | + +--------+ + + + | IVS | 1.21 | cm | [facility] | | | Systolic | | | | | | Thickness | | | | | | MM | | | | | + +--------+ + + + | LV Systolic | 5.79 | cm | [facility] | | | Diameter | | | | | | MM | | | | | + +--------+ + + + | LVPW | 1.45 | cm | [facility] | | | Systolic | | | | | | Thickness | | | | | | MM | | | | | + +--------+ + + + | AV Cusp | 1.96 | cm | [facility] | | | Seperation | | | | | | MM | | | | | + +--------+ + + + | LA Systolic | 6.39 | cm | [facility] | | | Diameter | | | | | | MM | | | | | + +--------+ + + + | TAPSE | 1.9 | cm | [facility] | | + +--------+ + + + | LVEF-TTE | 35 | % | [facility] | | | TRANSTHORAC | | | | | | IC ECHO | | | | | + +--------+ + + + | RA PRESSURE | 15 | mmHg | [facility] | | + +--------+ + + + | RVSP | 39 | mmHg | [facility] | | | Estimated | | | | | + +--------+ + + + + + | Specimen | + + | | + + + + + | Narrative | Performed At | + + + | 1. Moderate | [facility] | | biatrial dilatation.2. Moderate left atrial dilatation with normal | | | wall thickness. There is a moderate global hypokinesis of left | | | ventricle. Overall, left ventricular systolic function is moderately | | | decreased. LVEF is 35-40%.3. Moderately dilated right ventricular | | | cavity with normal wall thickness and a mildly reduced right | | | ventricular systolic function.4. Severe pulmonary hypertension with | | | a peak systole pressure of 80-85 mmHg.5. Mildly thickened and | | | calcified trileaflet aortic valve with adequate opening.6. Mildly | | | thickened and calcified mitral valve with the trace mitral valve | | | regurgitation.7. Moderate to severe central tricuspid valve | | | regurgitation.8. Dilated IVC without respiratory collapse suggesting | | | fluid retention. | | |8. Dilated IVC without respiratory collapse suggesting fluid retention. | | + + + + +---------+ + + | Performing | Address | City/State/Zipcode | Phone Number | | Organization | | | | + +---------+ + + | [facility] | | | | + +---------+ + + documented in this encounter Visit Diagnoses + + | Diagnosis | + + | Other congestive heart failure (HCC) Congestive heart failure, unspecified | + + documented in this encounter
--- OUTSIDE RECORDS SUMMARY | ~2019-07-14 | XMS | Encounter Summary ---
Demographics + + + | Address | [address] | | | [place] [address] | + + + | Home Phone [...] + | Lula Kerr | ECON | [address] | | | | | [place] | | | | | [address] | | + + + + + Care Team Providers + +------+ + | Care Section Hand Helper Name | Role | Phone | [...] Ninf[place] | | | | | [phone] | [place] [address] | | +--------+ + + + + [...] | Visit | | DO Rolan [address] | | | | | | [address] | | | | | | [place] | | | | | | [address] | | | | | | | | +--------+ + + + + | 09/25/ | Office | Cardiology | Sheldon Spence | | | 2019 | Visit | | MD [address] | | | | | | [place] | | | | | | [place] | | | | | | [address] | | | | | | | [...] [place] | | | | | | [address] | | | | | | | [...]
--- OUTSIDE RECORDS SUMMARY | ~2019-07-14 | XMS | Encounter Summary ---
Demographics + + + | Address | [address] | | | [place] [address] | + + + | Home Phone | | + + + | Preferred Language | Unknown | + + + | Marital Status | | + + + | Pentecostalism Affiliation | 1041 | + + + | Race | Unknown | + + + | Ethnic Group | Unknown | + + + Author + + + | Author | [facility] | | | and [place] | + + + | Organization | [facility] | | | and [place] | + + + | Address | Unknown | + + + | Phone | Unavailable | + + + Support + + + + + | Name | Relationship | Address | Phone | + + + + + | Lula Kerr | ECON | [address] | | | | | [place] | | | | | [address] | | + + + + + Care Team Providers + +------+ + | Care Mechanical Oxidizer Name | Role | Phone | + [...] | | | | | [address] | [address] [place] | | | | | [place], [place] | [place] [address] | | | | | [address] | | | | | | | | | | | | | Keith Holloway | | | | | | Emanuel, DO [address] | | | | | | [address] [place] | | | | | | [place] [address] | | | | | | | [...] +----+---+ + + | | 1 | [place] | | | | 5 | 43-degrees [...] +----+---+ + + | | 1 | [place] off | | | | 6 | [...] Patient room; | | | | | Hand Stoner; Arielle Centeno; Registered | | | | | nurse; Yes; New indication for | | | | | central line (e.g., hemodynamic | | | | | monitoring, fluid/medication | | | | | administration, etc.); brachial, | | | | | right; pressure injectable | | | | | catheter, lot number (specify) | | | | | (Proficiency [id number]); 5 Fr, length | | | | [...] | Visit | | DO Rolan [address] | | | | | | [address] | | | | | | [place] | | | | | | [address] | | | | | | | | +--------+ + + + + | 09/25/ | Office | Cardiology | Sheldon Spence | | | 2019 | Visit | | MD [address] | | | | | | [place] | | | | | | [place] | | | | | | [address] | | | | | | | [...] [place] | | | | | | [address] | | | | | | | [...] Performed At | + + + | oMe Ling II, MD 07/03/2018 15:26 Anesthesia Airway [...] 3:26 PM PST Anesthesia Airway | | Snbbpsazc58/10/2018 15:09Preprocedure check: patient identified, oxygen, airway | [...]
--- OUTSIDE RECORDS SUMMARY | ~2019-07-14 | XMS | Encounter Summary ---
Demographics + + + | Address | [address] | | | [place] [address] | + + + | Home Phone [...] | [facility] | | | and [place] | + + + | Address | Unknown | + + + | Phone | Unavailable | + + + Support + + + + + | Name | Relationship | Address | Phone | + + + + + | Lula Kerr | ECON | [address] | | | | | [place] | | | | | [address] | | + + + + + Care Team Providers + +------+ + | Care Grocery Store Bagger Name | Role | Phone | + [...] + | 07/08/ | Telephone | [facility] | Angelito Hernandes MD | Discharge Planning | | 2018 | | MEDICINE [address] | [address] [facility] | | | | | [facility] | [place] | | | | | [place] [address] | [id number] | | | | | [phone] | | | +--------+ + + + [...] | Visit | | DO Rolan [address] [place] [address] | | | | | | [address] | | | | | | [place] | | | | | | [address] | | | | | | | | +--------+ + + + + | 09/25/ | Office | Cardiology | Sheldon Spence | | | 2019 | Visit | | MD [address] | | | | | | [place] | | | | | | [place] | | | | | | [address] | | | | | | | [...] [place] | | | | | | [address] | | | | | | | | +--------+ + + + + documented as of this encounter Visit Diagnoses Not on filedocumented in this encounter"
--- OUTSIDE RECORDS SUMMARY | ~2019-07-14 | XMS | Encounter Summary ---
Demographics + + + | Address | [address] | | | [place] [address] | + + + | Home Phone [...] + | Lula Kerr | ECON | [address] | | | | | [place] | | | | | [address] | | + + + + + Care Team Providers + +------+ + | Care Robotic Technician Name | Role | Phone | [...] | | | | | disease) | [place] | [address] | | | | | ([facility]) | [address] [place] | [place], | | | | | Procedures | [place], [place] | [place] [address] | | | | | 08/09??> | [address] | Phone: | | | | | PEND | Phone: | [phone] | | | | | [place] | [phone] | Fax: | | | | | REVIEW | Fax: | [phone] | | | | | | [phone] | | +--------+ + + + + + Encounter Details +--------+ + + + + | Date | Type | Department | Care Team | Description | +--------+ + + + + | 07/31/ | Orders Only | [facility] | Silvina Alcantar W, | ESRD (end stage | | 2019 | | NEPHROLOGY [address] | renal disease) ([facility]) | | | | [address] | [address] [place] | (Primary Dx) | | | | [place], [place] | [place] [address] | | | | | [address] | [phone] | | | | | [phone] | | | +--------+ + + + [...] scheduled 08/17/18 1600 - message left a M87or informing of transportation need. Lula informed of [...] | Visit | | DO Rolan [address] [place] [address] | | | | | | [place] [...] [place] | | | | | | [id number] | | | | | | | [...] [place] | | | | | | [address] | | | | | | | [...]
--- OUTSIDE RECORDS SUMMARY | ~2019-07-14 | XMS | Encounter Summary ---
Demographics + + + | Address | [address] | | | [place] [address] | + + + | Home Phone | | + + + | Preferred Language | Unknown | + + + | Marital Status | | + + + | Islam Affiliation | 1041 | + + + | Race | Unknown | + + + | Ethnic Group | Unknown | + + + Author + + + | Author | [facility] | | | and [place] | + + + | Organization | [facility] | | | and [place] | + + + | Address | Unknown | + + + | Phone | Unavailable | + + + Support + + + + + | Name | Relationship | Address | Phone | + + + + + | Lula Kerr | ECON | [address] | | | | | [place] | | | | | [address] | | + + + + + Care Team Providers + +------+ + | Care Program Mgr Name | Role | Phone | + [...] | | | | | [address] | [address] [place] | | | | | [place] | [address] | | | | | [address] | [phone] | | | | | [phone] | | | +--------+ + + + [...] 09/05/181931 by | | eral | Forearm; awzd-qyn-fargpf catheter | Leonard Esquivel RN | Lyn [...] 2018 | Visit | | DO Rolan [address] [place] [address] | | | | | | [address] | | | | | | [place] | | | | | | [address] | | | | | | | | +--------+ + + + + | 09/25/ | Office | Cardiology | Sheldon Spence | | | 2019 | Visit | | MD [address] | | | | | | [place] | | | | | | [place] | | | | | | [phone] | | | | | | | [...] [place] | | | | | | [address] | | | | | | | [...]
--- OUTSIDE RECORDS SUMMARY | ~2019-07-14 | XMS | Encounter Summary ---
Demographics + + + | Address | [address] | | | [place] [address] | + + + | Home Phone | | + + + | Preferred Language | Unknown | + + + | Marital Status | | + + + | Hoahaoism Affiliation | 1041 | + + + | Race | Unknown | + + + | Ethnic Group | Unknown | + + + Author + + + | Author | [facility] | | | and [place] | + + + | Organization | [facility] | | | and [place] | + + + | Address | Unknown | + + + | Phone | Unavailable | + + + Support + + + + + | Name | Relationship | Address | Phone | + + + + + | Lula Kerr | ECON | [address] | | | | | [place] | | | | | [address] | | + + + + + Care Team Providers + +------+ + | Care Veterinary Epidemiologist Name | Role | Phone | + +------+ + | Gregory Drummond MD | PCP | | + +------+ + Reason for Visit +--------+ + | Reason | Comments | +--------+ + | Other | | +--------+ + Encounter Details +--------+ + + + + | Date | Type | Department | Care Team | Description | +--------+ + + + + | 10/30/ | Telephone | [facility] | Melba Wallace | Other | | 2019 | | SURGERY [address] | MD Miky [address] | | | | | [address] [place], [place] | [address] | | | | | [address] | [place] [address] | | | | | [phone] | [phone] | | | | | | | [...] | Visit | | DO Rolan [address] | | | | | | [address] | | | | | | [place] | | | | | | [address] | | | | | | | | +--------+ + + + + | 09/25/ | Office | Cardiology | Sheldon Spence | | | 2019 | Visit | | [address] | | | | | | [address] | | | | | | [place] | | | | | | [address] | | | | | | | [...] [place] | | | | | | [address] | | | | | | | [...]
--- OUTSIDE RECORDS SUMMARY | ~2019-07-14 | XMS | Encounter Summary ---
Demographics + + + | Address | [address] | | | [place] [address] | + + + | Home Phone [...] + | Lula Kerr | ECON | [address] | | | | | [place] | | | | | [address] | | + + + + + Care Team Providers + +------+ + | Care Natural Foods Clerk Name | Role | Phone | + +------+ + | Gregory Drummond MD | PCP | | + +------+ + Encounter Details +--------+ + + + + | Date | Type | Department | Care Team | Description | +--------+ + + + + | 02/12/ | Hospital | [facility] | Amilcar Hampton | Acute kidney injury | | 2019 | Encounter | MED CTR OR INTRA OP | MD Omar, FACS [address] | superimposed on | | | | [address] | [place] | chronic kidney | | | | [place], [place] | [place] [address] | disease (HCC) | | | | [address] | [phone] | | | | | [phone] | | | +--------+ + + + [...] Instructions Instructions Lyn Villanueva RN - 09/05/2018[facility] POST-OP INSTRUCTIONS: Arterio-Venous Fistula 1. Keep the [...] You can't be awakened Date Last Reviewed: 05/11/201619998098-3454 [employer]. [address] [place] [address]. All righ ts reserved. This information is [...] | Visit | | DO Rolan [address] | | | | | | [address] | | | | | | [place] | | | | | | [address] | | | | | | | | +--------+ + + + + | 09/25/ | Office | Cardiology | Sheldon Spence | | | 2019 | Visit | | [address] | | | | | | [address] | | | | | | [place] | | | | | | [address] | | | | | | | [...] [place] | | | | | | [address] | | | | | | | [...] mL/min/1.73m2 | [facility] | | | [facility] | RATE,ESTIMATED | | MEDICAL | | | | mL/min/1.52d9Zuhn than | | CENTER - | | [...] | [address] | [place] | [phone] | | [facility] | | [address] | | | - LABORATORY | | | | + + + + + documented in this encounter Visit Diagnoses + + | Diagnosis | + + | Acute kidney injury superimposed on chronic kidney disease (HCC) | + + | DM (diabetes mellitus), type 2 ([facility]) Type II or unspecified type diabetes mellitus | | without mention of complication, not stated as uncontrolled | + + | Dialysis patient ([facility]) Renal dialysis status | + + | VT (ventricular tachycardia) ([facility]) Paroxysmal ventricular tachycardia | + + | [...] Shortness of Breath, | | | [facility]05[facility]18 at 1819, For | | | 1 dose, Recovery/Phase I | | + +---+ | | | + +---+ | dexamethasone (DECADRON) 4 | | | mg/mL injection 4 mg 4 mg, | | | Intravenous, ONCE PRN, Nausea, | | | [facility] 09/05/18 at 1819, For | | | [...]
--- OUTSIDE RECORDS SUMMARY | ~2019-07-14 | XMS | Encounter Summary ---
Demographics + + + | Address | [address] | | | [place] [address] | + + + | Home Phone | | + + + | Preferred Language | Unknown | + + + | Marital Status | | + + + | Holiness Affiliation | 1041 | + + + [...] + | Lula Kerr | ECON | [address] | | | | | [place] | | | | | [address] | | + + + + + Care Team Providers + +------+ + | Care Appeals Assistant Name | Role | Phone | + [...] | | | | | [address] [place] | [address] [place] | | | | | [place] [address] | [place] [address] | | | | | [phone] | [phone] | | +--------+ + + + + [...] | Visit | | DO Rolan [address] | | | | | | [address] | | | | | | [place] | | | | | | [address] | | | | | | | | +--------+ + + + + | 09/25/ | Office | Cardiology | Sheldon Spence | | | 2019 | Visit | | [address] | | | | | | [address] | | | | | | [place] | | | | | | [address] | | | | | | | [...] [place] | | | | | | [address] | | | | | | | [...]
--- OUTSIDE RECORDS SUMMARY | ~2019-07-14 | XMS | Encounter Summary ---
Demographics + + + | Address | [address] | | | [place] [address] | + + + | Home Phone | | + + + | Preferred Language | Unknown | + + + | Marital Status | | + + + | Congregational Affiliation | 1041 | + + + | Race | Unknown | + + + | Ethnic Group | Unknown | + + + Author + + + | Author | [facility] | | | and [place] | + + + | Organization | [facility] | | | and [place] | + + + | Address | Unknown | + + + | Phone | Unavailable | + + + Support + + + + + | Name | Relationship | Address | Phone | + + + + + | Lula Kerr | ECON | [address] | | | | | [place] | | | | | [address] | | + + + + + Care Team Providers + +------+ + | Care Inspector Conveyor Line Name | Role | Phone | + +------+ + PCP | Unavailable | + +------+ + Encounter Details +--------+ + + + + | Date | Type | Department | Care Team | Description | +--------+ + + + + | 01/26/ | Hospital | [facility] | | | | 2001 | Encounter | MED CTR LABORATORY | | | | | | [address] [place] | | | | | | [place] | | | | | | [address] | | | | | | [phone] | | | +--------+ + + + [...] 2019 | Visit | | DO Rolan [address] [place] [address] | | | | | | [address] | | | | | | [place] | | | | | | [phone] | | | | | | | | +--------+ + + + + | 09/25/ | Office | Cardiology | Sheldon Spence | | | 2019 | Visit | | [address] | | | | | | [address] | | | | | | [place] | | | | | | [address] | | | | | | | [...] [place] | | | | | | [address] | | | | | | | | +--------+ + + + + documented as of this encounter Visit Diagnoses Not on filedocumented in this encounter"
--- OUTSIDE RECORDS SUMMARY | ~2019-07-14 | XMS | Encounter Summary ---
Demographics + + + | Address | [address] | | | [place] [address] | + + + | Home Phone | | + + + | Preferred Language | Unknown | + + + | Marital Status | | + + + | Sabianism Affiliation | 1041 | + + + [...] + | Lula Kerr | ECON | [address] | | | | | [place] | | | | | [address] | | + + + + + Care Team Providers + +------+ + | Care Demurrage Clerk Name | Role | Phone | [...] | +--------+ + + + + | 07/14/ | Documentati | [facility] | Silvina Alcantar W, | Dialysis | | 2018 | on | NEPHROLOGY [address] | MD [address] | (Asymptomatic) | | | | [address] | [address] [place] | | | | | [place], [place] | [place] [address] | | | | | [address] | [phone] | | | | | [phone] | | | +--------+ + + + [...] encounter Progress Notes Silvina Alcantar MD - 07/14/2018 1:30 PM PSTFormatting of this note might be different f rom the original. [facility] Date of visit: 07/14/2018 HPI: David Kerr Jr. is a 72 y.o. male with ischemic cardiomyopathy, CAD, type 2 D M, obesity hypoventilation, admitted to [facility] on 06/26/18, with pneumonia, septic shock, and acute on chronic kidney injury due to acute tubular necrosis. Pt initiated inpatient hemodi alysis on 06/28/18. A right IJ tunneled HD catheter was placed on 07/03/18. Pt was discharg ed from [facility] on 07/08/18 to [facility]. Pt started outpatient dialysis in [place] on 07/10/18. Pt had received two outpatient HD sessions thus far. Today is his 3rd outpatient dialysis session. Unfortunately, pt has developed significant lower extremity edema since discharge from hosp [facility]. His pre-weight today is 119 kg. Pt reports his urine output is low. He submitted a 24-hr collection today. Pt reports otherwise he is feeling ok. Pt denies chest pain. Pt is coughing up some clear phlegm. No shortness of breath. Pt reports decent appetite. Pt states he is on a fluid restriction. (1200 mL per day). Spoke with Dr. Drummond on 07/12/18. Carvedilol dose was discontinued at that time. [facility] Patient Active Problem List Diagnosis Date Noted Pneumonia due to infectious organism 06/26/2018 Priority: High Class: Acute Severe sepsis with septic shock ([facility]) 06/26/2018 Priority: High Class: Acute Cellulitis of left lower extremity 06/26/2018 Priority: High Class: Acute Acute kidney injury superimposed on chronic kidney disease (HCC) 06/26/2018 Priority: High Class: Acute Type 2 diabetes mellitus with stage 4 chronic kidney disease, without long-term current use of insulin ([facility]) 06/26/2018 Priority: High Acute metabolic encephalopathy 06/28/2018 Acute on chronic systolic heart failure ([facility]) 06/28/2018 Obesity, morbid ([facility]) 09/16/2014 Diabetes type 2, controlled ([facility]) 09/16/2014 Chest pain with high risk for cardiac etiology 09/16/2014 PSH Past Surgical History: Procedure Laterality Date CATARACT REMOVAL WITH IMPLANT Left 09/16/2014 Procedure: Left Cataract Extraction w/ IOL Implant; Surgeon: Charisse Santana MD; Loc ation: [facility] MAIN OR CATARACT REMOVAL WITH IMPLANT Right 10/14/2014 Procedure: Right Cataract Extraction w/ IOL Implant; Surgeon: Charisse aSntana MD; Lo cation: [facility] MAIN OR CORONARY ARTERY BYPASS GRAFT EGD AND COLONOSCOPY N/A 12/18/2015 Procedure: EGD / COLONOSCOPY - bmi 44 - has pacemaker defibrilator ; Surgeon: Meredith forbes MD; Location: [facility] pacemaker medtronic SHUNT PLACEMENT/INSERTION Right 07/03/2018 Procedure: INSERTION SHUNT HEMODIALYSIS W/ PERMACATH; Surgeon: Melab [place] MD; L ocation: [facility] MA[facility] OR Social History Social History [...] "get mean" Current Outpatient Prescriptions Medication Sig albuterol-ipratropium 2.5-0.5 mg/3 mL SOLN Take 3 [...] 2 hours a s needed for Indigestion. docusate sodium (COLACE) 100 MG capsule Take 100 mg by mouth 2 times daily. fexofenadine (HECTOR) 180 mg tablet Take 180 mg by mouth Daily as needed for Allergies . furosemide (LASIX) 80 mg tablet Take 2 tablets by mouth 2 times daily. glimepiride (AMARYL) 2 MG tablet Take 1 tablet by mouth every morning (before breakfast ). insulin lispro (HUMALOG KWIKPEN) 100 units/mL injection [...] > 400: DAY: 6 units.NIGHT: 5 units omeprazole (PRILOSEC) 40 MG capsule Take 40 mg by mouth every morning (before breakfast ). polyethylene glycol (MIRALAX) packet Take 1 diluted packet by mouth Daily as needed for Constipation. traZODone (DESYREL) 50 mg tablet Take 1 tablet by mouth nightly as needed for Insomnia. triamcinolone (KENALOG) 0.1% cream Apply 1 Application topically Twice daily as needed for Rash. No current facility-administered medications for this visit. EXAM T 96.8, HR 70, BP 115/68, pre-wt 119 kg Constitutional: Appears well-developed and well-nourished. No distress. Cardiovascular: Normal rate, regular rhythm and normal heart sounds. 3++ lower extremity p eripheral edema. Lungs: Respiratory effort normal. Decreased breath sounds at left base. No wheezes. Abdominal: Soft. Bowel sounds are normal. No distension or tenderness. Musculoskeletal: No muscle tenderness. Neurological: Alert. Dialysis Access: R IJ catheter in place. DIALYSIS LABS 07/12/18 WBC 4.9, Hb 11.6, TSAT 21% Sodium 137, potassium 4.7, Cl 102, bicarb 26, BUN 56, Cr 2.77 Albumin 3.0, calcium 8.3, phos 4.4, PTH 371, Mg 1.5 ASSESSMENT AND PLAN 1. Acute kidney injury superimposed on chronic kidney disease (HCC) Pt submitted a 24-hr u rine collection to check creatinine clearance. However, based on pt's fluid gains, it is un likely that he has had renal recovery. -Will f/u on 24-hr urine collection. -Electrolytes are stable. -Will continue current HD prescription. 2. Chronic systolic heart failure (HCC) Carvedilol stopped due to hypotension. Pt is very edematous. -Will ultrafiltrate as much as possible on HD. Aim for EDW of 112 kg initially. -Low sodium diet. -Fluid restriction 1200 mL per day. 3. Anemia due to chronic kidney disease Hb >11. 4. Secondary hyperparathyroidism of renal origin (HCC) Serum calcium and phos levels are w ithin goal. 5. DNR (do not resuscitate) Reviewed POLST form. Updated order to reflect DNR/DNI wish. Cc: MD Reginald Javier [facility] documented in this encounter Plan of Treatment +--------+ + + + + | Date | Type | Specialty | Care Team | Description | +--------+ + + + + | 07/16/ | Off-Site | Nephrology | Maty Tian | | | 2018 | Visit | | DO Rolan [address] [place] [address] | | | | | | [address] | | | | | | [place] | | | | | | [address] | | | | | | | | +--------+ + + + + | 09/25/ | Office | Cardiology | Sheldon Spence | | | 2019 | Visit | | [address] | | | | | | [facility] | | | | | | [place] | | | | | | [address] | | | | | | | [...] [place] | | | | | | [address] | | | | | | | | +--------+ + + + + documented as of this encounter Visit Diagnoses + + | Diagnosis | + + | Acute kidney injury superimposed on chronic kidney disease (HCC) - Primary | + + | Chronic systolic heart failure (HCC) Chronic systolic heart failure | + + | Anemia due to chronic kidney disease | + + | Secondary hyperparathyroidism of renal origin (HCC) Secondary hyperparathyroidism (of | | renal origin) | + + | DNR (do not resuscitate) Do not resuscitate status | + + documented in this encounter
--- OUTSIDE RECORDS SUMMARY | ~2019-07-14 | XMS | Encounter Summary ---
Demographics + + + | Address | [address] | | | [place] [address] | + + + | Home Phone [...] + | Lula Kerr | ECON | [address] | | | | | [place] | | | | | [address] | | + + + + + Care Team Providers + +------+ + | Care Antique Refinisher Name | Role | Phone | + +------+ + PCP | Unavailable | + +------+ + Encounter Details +--------+ + + + + | Date | Type | Department | Care Team | Description | +--------+ + + + + | 11/12/ | Hospital | [facility] | | | | 1999 - | Encounter | MED CTR OP REHAB | | | | | | [address] [place] | | | | 11/25/ | | [place] [address] | | | | 2000 | | [phone] | | | +--------+ + + + [...] 2019 | Visit | | DO Rolan [address] [place] [address] | | | | | | [address] | | | | | | [place] | | | | | | [address] | | | | | | | | +--------+ + + + + | 09/25/ | Office | Cardiology | Sheldon Spence | | | 2019 | Visit | | [address] | | | | | | [address] | | | | | | [place] | | | | | | [address] | | | | | | | [...] | | | | | [address] [place] | | | | | | [address] | | | | | | | | +--------+ + + + + documented as of this encounter Visit Diagnoses Not on filedocumented in this encounter"
--- OUTSIDE RECORDS SUMMARY | ~2019-07-14 | XMS | Encounter Summary ---
Demographics + + + | Address | [address] | | | [place] [address] | + + + | Home Phone | | + + + | Preferred Language | Unknown | + + + | Marital Status | | + + + | Sabianist Affiliation | 1041 | + + + | Race | Unknown | + + + | Ethnic Group | Unknown | + + + Author + + + | Author | [facility] | | | and [place] | + + + | Organization | [facility] | | | and [place] | + + + | Address | Unknown | + + + | Phone | Unavailable | + + + Support + + + + + | Name | Relationship | Address | Phone | + + + + + | Lula Kerr | ECON | [address] | | | | | [place] | | | | | [address] | | + + + + + Care Team Providers + +------+ + | Care Pre Billing Specialist Name | Role | Phone | + [...] | | (FORM[facility]LY [facility]) Acute | | | | | | [...] | | (FORMERLY [facility]) | | | | | | | | | | +--------+--------+ + + + + Encounter Details +--------+ + + + + | Date | Type | Department | Care Team | Description | +--------+ + + + + | 06/26/ | Hospital | [facility] | Vianca, | Pneumonia of right | | 2018 - | Encounter | [facility] SUR[facility] | Gomez Batres MD [address] | lower lobe due to | | | | [address] [place] | [address] [place] | infectious organism | | 07/08/ | | [place] [address] | [place] [address] | (FORMERLY [facility]) (Primary Dx); | | 2018 | | [phone] | [phone] | Acute renal failure | | | | | | with acute tubular | | | | | [place], [place], | necrosis | | | | | [address] | superimposed on | | | | | [place], [place] | chronic kidney | | | | | [address] | disease, unspecified | | | | | | CKD stage ([facility]ERLY [facility]); | | | | | Chava Werner, DO | Hyponatremia; | | | | | [address] | Hypoxemia; Pneumonia | | | | | [place] | due to infectious | | | | | [address] | organism, | | | | | | unspecified | | | | | | laterality, | | | | | | unspecified part of | | | | | | lung; | | | | | | Hyperphosphatemia; | | | | | | Sepsis, due to | | | | | | unspecified organism | | | | | | (FORMERLY [facility]); Acute kidney | | | | | [...] Physician: Mabel Jaimes MD Discharging Physician: Bruce Aclantar MD Primary Care Provider: Gregory Drummond MD [...] - Will continue dialysis, planned f/u at [place] dialysis unit, unclear if he will ever [...] monitor nutrition Code Status: No Code. Disposition: [facility] Discharge Condition: Stable Somewhat distant breath sounds throughout, scattered rhonchi, no increased work of breathin g Heart RRR Abd soft, obese, NT Ext WWP, 3-4 cm pitting ochoa Contact information for after-discharge care Placement Destination [facility] . Specialty: Group Home Facility Contact information: [place] [address] Discharge Medications New Medications Details albuterol-ipratropium [...] signed by: Bruce Alcantar MD, 07/08/2018 13:31 [facility] documented in this encounter Discharge Instructions Patient [...] of this encounter Progress Notes Penny Deng, TOW BAR DRIVER - 07/08/2018 10:00 AM PSTButch is offered [...] lost his temper and started cussing at [employer] because they "have already gone over this medication list several times with other staff members." Patient and his both raised their voices at [employer] then cut interview short after repeatedly telling [...] garding this. The drug is listed as "Nano Think/RxResults study drug" 1 tab by mouth once daily on Dr. Johana Gongora edication list. It is unknown if/how the patient is taking. Dr. Vaughn office told us it was highly confidential therefore there is no information re garding this in the patients chart notes. Ertugliflozin vs. Placebo is listed on the patients FOIL STAMP OPERATOR list under trail drug. However, Ertugliflozin has been approved by the FDA. Ertugliflozin is manufactured by [employer]Results. Best possible FOIL STAMP OPERATOR medication list after pharmacy review: PT [...] performed and electronically signed by Ashley Farmer, Licensed Real Estate Broker 07/06 16:05 Reviewed by Wing Torres, PharmShola 07/07/2018 16:57 Silvina South M D - 07/07/2018 10:46 AM PST [facility] NEPHROLOGY progress note Patient: David Kerr [...] today. -Will arrange for outpatient HD in [place]. -At discharge, recommend continuing Lasix at 160 mg PO BID. 2. Hypoxia due to pulmonary edema / pulmonary hypertension / EVITA. Remains on oxygen by nasal cannula. EVITA: Poor tolerance to CPAP. Will continue to use nasal cannula at nighttime for EVITA. 3. Anemia. Last Hb stable. 4. Dispo. Anticipate SNF placement in [place]. 24 HR EVENTS UOP 1050 mL, on [...] Silvina Alcantar MD Electronically signed: 07/07/2018 10:46 [facility] LeSilvina lyon MD - 07/06/2018 10:59 AM PST [facility] NEPHROLOGY progress note Patient: David Kerr [...] Silvina Alcantar MD Electronically signed: 07/06/2018 10:59 [facility] Marilynn Cr CONVEYOR MAN - 07/06/2018 9:25 AM PSTAuthor met with Elias and Lula to complete advance directive with Elias, following POLST conversation with Palliative Care LIMO DRIVER. Elias named Lula as his POA for healthcare and eldest son David SHETH (Aroldo) his alternate. Fisher Oyster said he would be a ble to notarize the document 07/07. Brannon, Bruce Calderon MD - 07/05/2018 8:08 PM PST [facility] Hospitalist Progress Note David Kerr [...] outlined above. Bruce Alcantar 07/05/2018 20:08 [facility] Ofelia Pandey AR CARPET YARN WINDER OPERATOR - 07/05/2018 5:21 PM Gabriel Palliative Care [...] Directive will be completed with palliative care CONVEYOR MAN Marilynn Garcia. Silvina South MD - 07/05/2018 9:32 AM PST [facility] NEPHROLOGY progress note Patient: David Kerr [...] Silvina Alcantar MD Electronically signed: 07/05/2018 9:32 [facility] Ofelia Pandey AR CARPET YARN WINDER OPERATOR - 07/04/2018 3:56 PM PST [facility] PALLIATIVE CARE PROGRESS NOTE Pt. Name/Age/: David Kerr Jr. 72 y.o. 1945 Med. Record Number: [id number] Palliative Java J2Ee Technical Lead: FATOUMATA Ash Palliative Care Team: ENZO Tobin [...] acute tubu lar necrosis and septic shock. Web Content Editor Silvina Alcantar MD initiated hemodialysis on 06/28/18 (Left femora HD catheter place on 06/28/18) and indicates she suspects ischemia / cardio renal syndrome. It is not clear at this time whether renal function will improve or halfway dialysis will be needed / recommended. Interim HPI: It appears that halfway dialysis will in fact be needed for [...] defibrilator ; Surgeon: Meredith forbes MD; Location: [facility] MEDICAL PROCEDURE UNIT pacemaker medtronic SHUNT PLACEMENT/INSERTION Right 07/03/2018 Procedure: INSERTION SHUNT HEMODIALYSIS W/ PERMACATH; Surgeon: Melba Wallace MD; L ocation: [facility] MAIN OR History reviewed. No pertinent [...] Assessments Symptom Assessment Tool (based on Modified [place] Symptom Assessment Scale) [x] Unable or incomplete [...] christina Jr, and daughter Cesia, palliative care LIMO DRIVERGwendolyn Jimenez and CONVEYOR MAN Marilynn Garcia. Elias i s unable to [...] under direction of the Provider: Palliative Care Fisher Oyster: Fredi Tidwell Palliative Care Account Service Associate: ENZO Tobin * I have personally reviewed the information with the patient and/or family and concur with the information recorded by fellow steam roller operator signed above. Palliative Care Provider: FATOUMATA Ash Total time of approximately 55 minutes ([id number], [id number]) was spent with the patient a nd/or patient's family, and/or on the patient's floor/unit, of which more than 50% was spent counseling and/or coordination the patient's care as outlined above. Topics Discussed: See discussion notes under Discussion and Plan section. Electronically signed by: FATOUMATA Hughes, 07/04/2018 15:56 AGUIRRE: AFTT - adult failure to thrive LIMO DRIVER - advanced registered nurse practitioner BiPAP - bilevel positive airway pressure BP- blood pressure CN-cranial nerves CPAP-continuous positive airway pressure dc'd - discharged or discontinued EOMI-extraocular movement intact HR-heart rate HSM-hepatosplenomegaly LE-lower extremity MD- doctor of medicine c4Ngm-ibxhwn saturation PERRLA-pupils equal, round, reactive to light and accommodation RR-respiratory rate S1 S2- 1st and 2nd heart sounds T-temperature JVD-jugular vein distension Silvina South MD - 07/04/2018 12:13 PM PST [facility] NEPHROLOGY progress note Patient: David Kerr [...] Silvina Alcantar MD Electronically signed: 07/04/2018 12:14 [facility] Cristal Denson, Cambering Machine Operator - 07/04/2018 11:19 AM PSTFormatting of this [...] orally famotidine 20 mg q24hr Cristal Haro, Cambering Machine Operator 07/04/2018 11:20 [facility] IV TO PO Collaborative Practice Protocol Bruce Stark MD - 07/04/2018 7:04 AM PSTFormatting of this note might be different from tati mcdonough. [facility] Hospitalist Progress Note David Kerr Jr. [...] outlined above. Bruce Alcantar 07/04/2018 7:05 [facility] Cristal Denson, Cambering Machine Operator - 07/03/2018 1:22 PM PSTFormatting of this [...] ADJUSTMENT PROTOCOL Electronically signed by: Cristal Haro, Cambering Machine Operator 07/03/2018 13:22Electronicall y signed by Cristal Haro, Cambering Machine Operator at 07/03/2018 1:31 PM Silvina South MD - 07/03/2018 10:00 AM PST [facility] NEPHROLOGY progress note Patient: David Kerr [...] Silvina Alcantar MD Electronically signed: 07/03/2018 10:00 [facility] asey, Melba Bolaños MD - 07/03/2018 9:12 AM PST [place] [facility], [place] General Surgery Team Hospital Day: 8 [...] Signed by: Melba Wallace MD, 07/03/2018 9:12 [facility] Chava Morales DO - 07/03/2018 7:30 AM PSTFormatting of this note mi ght be different from the original. [place] HOSPITALIST PROGRESS NOTE Patient: David Kerr Jr. : 1945: Age: 72 y.o. MedRec: [id number] Admission date: 06/26/2018 Hospital day # : [...] see his primary care provider at the [place] clinic and complained of generalize d swelling [...] His hospitalization was complicated by metabolic ac [place] encephalopathy likely due to hypercapnia and uremia. [...] would benefit from outpatient follow-up with a dairy nutrition consultant # Moderate protein calorie malnutrition: The patient [...] affect Chava Werner DO 07/03/2018 7:30 [facility] Portions of this chart may have been created with [email or web address] voice recognition software. Occasi onal wrong-word or sound-alike substitutions may have occurred due to the inherent al itations of voice recognition software. Please read the chart carefully and recognize, using context, where these substitutions have occurred Silvina South MD - 07/02/2018 11:44 AM PST [facility] NEPHROLOGY progress note Patient: David Kerr [...] Silvina Alcantar MD Electronically signed: 07/02/2018 11:44 [facility] Chava Morales DO - 07/02/2018 7:15 AM PST [place] HOSPITALIST PROGRESS NOTE Patient: David Kerr Jr. : 1945: Age: 72 y.o. MedRec: [id number] Admission date: 06/26/2018 Hospital day # : [...] see his primary care provider at the [facility] and complained of generalize d [...] would benefit from outpatient follow-up with a dairy nutrition consultant # Moderate protein calorie malnutrition: The patient [...] affect Chava Werner DO 07/02/2018 7:15 [facility] Portions of this chart may have been created with [email or web address] voice recognition software. Occasi onal wrong-word or sound-alike substitutions may have occurred due to the inherent al itations of voice recognition software. Please read the chart carefully and recognize, using context, where these substitutions have occurred Silvina South MD - 07/01/2018 11:09 AM PST [facility] NEPHROLOGY progress note Patient: David Kerr [...] Silvina Alcantar MD Electronically signed: 07/01/2018 11:09 [facility] Chava Morales DO - 07/01/2018 7:29 AM PST [place] HOSPITALIST PROGRESS NOTE Patient: David Kerr Jr. : 1945: Age: 72 y.o. MedRec: [id number] Admission date: 06/26/2018 Hospital day # : [...] see his primary care provider at the [facility] and complained of generalize d [...] would benefit from outpatient follow-up with a dairy nutrition consultant # Moderate protein calorie malnutrition: The patient [...] Neuro: answering questions appropriately. Following all commands. benefit director grossly intact, no f ocal weakness or sensory deficits Chava Werner DO 07/01/2018 7:29 [facility] Portions of this chart may have been created with [email or web address] voice recognition software. Occasi onal wrong-word or sound-alike substitutions may have occurred due to the inherent al itations of voice recognition software. Please read the chart carefully and recognize, using context, where these substitutions have occurred Silvina South MD - 06/30/2018 11:54 AM PST [facility] NEPHROLOGY progress note Patient: David Kerr [...] Silvina Alcantar MD Electronically signed: 06/30/2018 11:54 [facility] Chava Morales DO - 06/30/2018 7:11 AM PST [facility] [place] HOSPITAL[place] PROGRESS NOTE Patient: David Kerr Jr. : 1945: Age: 72 y.o. MedRec: [id number] Admission date: 06/26/2018 Hospital day # : [...] see his primary care provider at the [place] [facility] and complained of generalize d swelling [...] would benefit from outpatient follow-up with a dairy nutrition consultant # Moderate protein calorie malnutrition: The patient [...] Value Units Date/Time Culture, Respiratory, Lower, Smear [[id number]] Collected: 06/27/18 0938 Order Status: Completed Lab [...] Forgetful. Have to repeat information multiple time. benefit director grossly intact, no focal we akness or sensory deficits Chava Werner DO 06/30/2018 7:11 [facility] Portions of this chart may have been created with [email or web address] voice recognition software. Occasi onal wrong-word or sound-alike substitutions may have occurred due to the inherent al itations of voice recognition software. Please read the chart carefully and recognize, using context, where these substitutions have occurred Silvina South MD - 06/29/2018 9:22 AM PST [facility] NEPHROLOGY progress note Patient: David Kerr [...] Silvina Alcantar MD Electronically signed: 06/29/2018 9:22 [facility] Chava Morales DO - 06/29/2018 7:15 AM PST [facility] [place] [facility]OSPITAL[place] PROGRESS NOTE Patient: David Kerr Jr. : 1945: Age: 72 y.o. MedRec: [id number] Admission date: 06/26/2018 Hospital day # : [...] see his primary care provider at the [facility] and complained of generalize d [...] would benefit from outpatient follow-up with a dairy nutrition consultant # Moderate protein calorie malnutrition: The patient [...] 40 mg 40 mg Oral Nightly Mabel aJimes MD 40 mg at 06/28/18 204 cefTRIAXone [...] Units/hr (06/28/18 1508) norepinephrine 3 mcg/min (06/29/18 7801) Objective Data Point of care glucose Recent [...] Value Units Date/Time Culture, Respiratory, Lower, Smear [[id number]] Collected: 06/27/18 0938 Order Status: Completed Lab Status: Preliminary result Updated: 06/28/18827 Specimen: Body Fluid from Sputum, Expectorated Culture 1+ Usual Respiratory Homer Gram Stain Result 3+ White Blood Cells 2+ Epithelial cells 1+ Gram positive cocci 1+ Gram negative rods Respiratory Virus Panel, NAAT [[id number]] Collected: 06/26/182358 Order Status: Sent Lab Status: In process Updated: 06/27/18 0002 Specimen: Tissue from Nasopharynx Respiratory pathogen panel, NAAT [[id number]] Collected: 06/26/182358 Order Status: Completed Lab Status: [...] pneumoniae DNA Not Detected Narrative: Performed at: [address] [place] [id number] Healthcare Insurance Sales Agent: Salazar Ocampo MD, Phone: [phone] Legionella, Ag, EIA, Qual, Urine [[id number]] Collected: 06/26/18 1501 Order Status: Completed Lab Status: Final result Updated: 06/27/18 1311 Specimen: Urine from Urine, Indwelling Catheter L. pneumophila Serogp 1 Ur Ag Negative Comment: Presumptive negative for L. pneumophila serogroup 1 antigen in urine, suggesting no recent or current infection. Legionnaires' disease cannot be ruled out since other serogroups and species may also cause disease. Narrative: Performed at: [facility] [id number] Healthcare Insurance Sales Agent: Salazar Ocampo MD, Phone: [phone] Culture, Urine [[id number]] Collected: 06/26/18 1500 Order Status: Completed Lab Status: Final result Updated: 06/28/18 0916 Specimen: Urine from Urine, Clean Catch Culture 6,000 CFU/ml Mixed Gram Positive Homer Comment: Suggests contamination with urogenital or skin homer. No further work-up to follow. Culture, MRSA [[id number]] Collected: 06/26/18 1312 Order Status: Completed Lab Status: Final result Updated: 06/27/18 0724 Specimen: Tissue from Nares Culture Negative for MRSA by chromogenic agar method 3+ Coagulase positive Staphylococcus Culture, Blood [[id number]] (Normal) Collected: 06/26/18 1022 Order Status: Completed Lab Status: Preliminary result Updated: 06/26/18 2231 Specimen: Blood from Peripheral Blood Culture No growth: Monitored continually by instrument for 5 days Culture, Blood [[id number]] (Normal) Collected: 06/26/18 0924 Order Status: Completed [...] Forgetful. Have to repeat information multiple time. benefit director grossly intact, no focal we akness or sensory deficits Chava Werner DO 06/29/2018 7:15 [facility] Portions of this chart may have been created with [email or web address] voice recognition software. Occasi onal wrong-word or sound-alike substitutions may have occurred due to the inherent al itations of voice recognition software. Please read the chart carefully and recognize, using context, where these substitutions have occurred Silvina South MD - 06/28/2018 9:50 AM PST [facility] NEPHROLOGY progress note Patient: David Kerr [...] Silvina Alcantar MD Electronically signed: 06/28/2018 9:52 [facility] Chava Morales DO - 06/28/2018 7:07 AM PST [facility] H[facility]PITALIST PROGRESS NOTE Patient: David Kerr Jr. : 1945: Age: 72 y.o. MedRec: [id number] Admission date: 06/26/2018 Hospital day # : [...] see his primary care provider at the [place] [facility] and complained of generalize d swelling [...] would benefit from outpatient follow-up with a dairy nutrition consultant # Moderate protein calorie malnutrition: The patient [...] Value Units Date/Time Culture, Respiratory, Lower, Smear [[id number]] Collected: 06/27/18 0938 Order Status: Completed Lab Status: Preliminary result Updated: 06/27/18 1342 Specimen: Body Fluid from Sputum, Expectorated Gram Stain Result 3+ White Blood Cells 2+ Epithelial cells 1+ Gram positive cocci 1+ Gram negative rods Respiratory Virus Panel, NAAT [[id number]] Collected: 06/26/18 235 Order Status: Sent Lab Status: In process Updated: 06/27/18 0002 Specimen: Tissue from Nasopharynx Respiratory pathogen panel, NAAT [[id number]] Collected: 06/26/182358 Order Status: Completed Lab Status: [...] pneumoniae DNA Not Detected Narrative: Performed at: [address] [place] [id number] Healthcare Insurance Sales Agent: Salazar Ocampo MD, Phone: [phone] Legionella, Ag, EIA, Qual, Urine [[id number]] Collected: 06/26/18 1501 Order Status: Completed Lab [...] disease. Narrative: Performed at: 01 - [facility] [address] [id number] Healthcare Insurance Sales Agent: Salazar Ocampo MD, Phone: [phone] Culture, Urine [[id number]] (Normal) Collected: 06/26/18 1500 Order Status: Completed Lab Status: Preliminary result Updated: 06/27/18 09 Specimen: Urine from Urine, Clean Catch Culture No growth to date Culture, MRSA [[id number]] Collected: 06/26/18 1312 Order Status: Completed Lab Status: Final result Updated: 06/27/18 0724 Specimen: Tissue from Nares Culture Negative for MRSA by chromogenic agar method 3+ Coagulase positive Staphylococcus Culture, Blood [[id number]] (Normal) Collected: 06/26/18 1022 Order Status: Completed Lab Status: Preliminary result Updated: 06/26/18 223 Specimen: Blood from Peripheral Blood Culture No growth: Monitored continually by instrument for 5 days Culture, Blood [[id number]] (Normal) Collected: 06/26/18 0924 Order Status: Completed [...] relayed to the ordering provider by the critical access hospitalound technologist immediately following the exam. Dictated and [...] Forgetful. Have to repeat information multiple time. benefit director grossly intact, no focal we akness or sensory deficits Chava Werner DO 06/28/2018 7:07 [facility] Portions of this chart may have been created with [email or web address] voice recognition software. Occasi onal wrong-word or [...] see his primary care provider at the [facility] and complained of generalized swelling and [...] Value Units Date/Time Culture, Respiratory, Lower, Smear [[id number]] Collected: 06/27/18 0938 Order Status: Completed Lab Status: Preliminary result Updated: 06/27/18 1342 Specimen: Body Fluid from Sputum, Expectorated Gram Stain Result 3+ White Blood Cells 2+ Epithelial cells 1+ Gram positive cocci 1+ Gram negative rods Respiratory Virus Panel, NAAT [[id number]] Collected: 06/26/182358 Order Status: Sent Lab Status: In process Updated: 06/27/181 Specimen: Tissue from Nasopharynx Respiratory pathogen panel, NAAT [[id number]] Collected: 06/26/182358 Order Status: Sent Lab Status: In process Updated: 06/27/181 Specimen: Tissue from Nasopharynx Legionella, Ag, EIA, Qual, Urine [[id number]] Collected: 06/26/18 1501 Order Status: Completed Lab Status: Final result Updated: 06/27/18 131 Specimen: Urine from Urine, Indwelling Catheter L. pneumophila Serogp 1 Ur Ag Negative Comment: Presumptive negative for L. pneumophila serogroup 1 antigen in urine, suggesting no recent or current infection. Legionnaires' disease cannot be ruled out since other serogroups and species may also cause disease. Narrative: Performed at: [address] [place] [id number] Healthcare Insurance Sales Agent: Salazar Ocampo MD, Phone: [phone] Culture, Urine [[id number]] (Normal) Collected: 06/26/18 1500 Order Status: Completed Lab Status: Preliminary result Updated: 06/27/18 09 Specimen: Urine from Urine, Clean Catch Culture No growth to date Culture, MRSA [[id number]] Collected: 06/26/18 1312 Order Status: Completed Lab Status: Final result Updated: 06/27/18 0724 Specimen: Tissue from Nares Culture Negative for MRSA by chromogenic agar method 3+ Coagulase positive Staphylococcus Culture, Blood [[id number]] (Normal) Collected: 06/26/18 1022 Order Status: Completed Lab Status: Preliminary result Updated: 06/26/18 223 Specimen: Blood from Peripheral Blood Culture No growth: Monitored continually by instrument for 5 days Culture, Blood [[id number]] (Normal) Collected: 06/26/18 0924 Order Status: Completed [...] South MD - 06/27/2018 9:18 AM PST [facility] NEPHROLOGY progress note Patient: David Kerr [...] Silvina Alcantar MD Electronically signed: 06/27/2018 9:20 [facility] Chava Morales DO - 06/27/2018 7:18 AM PST [place] HOSPITALIST PROGRESS NOTE Patient: David Kerr Jr. : 1945: Age: 72 y.o. MedRec: [id number] Admission date: 06/26/2018 Hospital day # : [...] see his primary care provider at the [facility] and complained of generalize d [...] would benefit from outpatient follow-up with a dairy nutrition consultant # Moderate protein calorie malnutrition: The patient [...] pH, Urine 5.0 5.0 - 8.0 Specific [place] 1.015 1.001 - 1.030 Protein, Urine 30 [...] Value Units Date/Time Respiratory Virus Panel, NAAT [[id number]] Collected: 06/26/18 2359 Order Status: Sent Lab Status: In process Updated: 06/27/18 0002 Specimen: Tissue from Nasopharynx Respiratory pathogen panel, NAAT [[id number]] Collected: 06/26/18 2359 Order Status: Sent Lab Status: In process Updated: 06/27/18 0002 Specimen: Tissue from Nasopharynx Legionella, Ag, EIA, Qual, Urine [[id number]] Collected: 06/26/18 1501 Order Status: Sent Lab Status: In process Updated: 06/26/18 1527 Specimen: Urine from Urine, Indwelling Catheter Culture, Urine [[id number]] Collected: 06/26/18 1500 Order Status: Sent Lab Status: In process Updated: 06/26/18 1549 Specimen: Urine from Urine, Clean Catch Culture, MRSA [[id number]] Collected: 06/26/18 1312 Order Status: Sent Lab Status: In process Updated: 06/26/18 1333 Specimen: Tissue from Nares Culture, Blood [[id number]] (Normal) Collected: 06/26/18 1022 Order Status: Completed Lab Status: Preliminary result Updated: 12/03/18 2231 Specimen: Blood from Peripheral Blood Culture No growth: Monitored continually by instrument for 5 days Culture, Blood [[id number]] (Normal) Collected: 06/26/18923 Order Status: Completed Lab [...] relayed to the ordering provider by the critical access hospitalound technologist immediately following the exam. Dictated and [...] flexion. Pych: normal mood and affect Neuro: benefit director grossly intact, no focal weakness or sensory deficits Chava Werner DO 06/27/2018 7:18 [facility] Portions of this chart may have been created with [email or web address] voice recognition software. Occasi onal wrong-word or sound-alike substitutions may have occurred due to the inherent al itations of voice recognition software. Please read the chart carefully and recognize, using context, where these substitutions have occurred lA Hammonds, PharmD - 06/26/2018 1:29 PM PST [...] see his primary care provider at the [facility] and complained of generalized swelling and [...] Procedure Component Value Units Date/Time Culture, MRSA [[id number]] Collected: 06/26/18 1312 Order Status: Sent Lab Status: No result Specimen: Tissue from Nares Culture, Respiratory, Lower, Smear [[id number]] Order Status: Sent Lab Status: No result Specimen: Body Fluid from Sputum, Expectorated Respiratory Virus Panel, NAAT [[id number]] Order Status: Sent Lab Status: No result Specimen: Tissue from Nasopharynx Respiratory pathogen panel, NAAT [[id number]] Order Status: Sent Lab Status: No result Specimen: Tissue from Nasopharynx Culture, Blood [[id number]] Collected: 06/26/18 1022 Order Status: Sent Lab Status: In process Updated: 06/26/18 1026 Specimen: Blood from Peripheral Blood Culture, Blood [[id number]] Collected: 06/26/18 0924 Order Status: Sent Lab [...] | Visit | | DO Rolan [address] [place] [address] | | | | | | [address] | | | | | | [place] | | | | | | [id number] | | | | | | | | +--------+ + + + + | 09/25/ | Office | Cardiology | Sheldon Spence | | | 2019 | Visit | | MD Paul [address] | | | | | | Aaron Caro [facility] | | | | | | [place] | | | | | | [id number] | | | | | | | [...] [place] | | | | | | [address] | | | | | | | [...] + | [facility] | [address] | [place] | [phone] | | [facility] | | [address] | | | - LABORATORY | | [...] mL/min/1.73m2 | [facility] | | | [place] | | | MEDICAL | | | [...] ST. | [address] | [place] | [phone] | | [facility] | | [address] | | | - LABORATORY | | [...] [address] | [place] | [phone] | | [facility] | | [address] | | | - LABORATORY | | [...] + | [facility] | [address] | [place] | [phone] | | [facility] | | [address] | | | - LABORATORY | | [address] | [place] | [phone] | | [facility] | | [address] | | | - LABORATORY | | [...] [address] | [place] | [phone] | | [facility] | | [address] | | | - LABORATORY | | [...] test | | | | | | ([id number]). | | | | + + + + + + + + | Specimen | + + | Blood | + + + + + | Narrative | Performed At | + + + | Performed at: 01 - [facility] [address], | REFERENCE LAB | | [place], [place] [id number] Healthcare Insurance Sales Agent: Salazar Ocampo MD, Phone: | [facility] | | [phone] | | + + + + + + + + | Performing | Address | City/State/Zipcode | Phone Number | | Organization | | | | + + + + + | REFERENCE LAB | [address] | [place] [address] | [phone] | | [facility] | Drive [...] + | Performed at: 01 - [facility] [address], | REFERENCE LAB | | [place], [place] [id number] Healthcare Insurance Sales Agent: Salazar Ocampo MD, Phone: | [facility] | | [phone] | | + + + + + + + + | Performing | Address | City/State/Zipcode | Phone Number | | Organization | | | | + + + + + | REFERENCE LAB | [address] | [place] [address] | [phone] | | [facility] | Drive [...] + | Performed at: 01 - [facility] [address], | REFERENCE LAB | | [place], [place] [id number] Healthcare Insurance Sales Agent: Salazar Ocampo MD, Phone: | [facility] | | [phone] | | + + + + + + + + | Performing | Address | City/State/Zipcode | Phone Number | | Organization | | | | + + + + + | REFERENCE LAB | [address] | [place] [address] | [phone] | | [facility] | Drive [...] ST. | [address] | [place] | [phone] | | [facility] | | [address] | | | - LABORATORY | | [...] mL/min/1.73m2 | [facility] | | | [place] | | | MEDICAL | | | [...] [address] | [place] | [phone] | | [facility] | | [address] | | | - LABORATORY | | [...] + | [facility] | [address] | [place] | [phone] | | [facility] | | [address] | | | - LABORATORY | | [...] [address] | [place] | [phone] | | [facility] | | [address] | | | - LABORATORY | | [...] [address] | [place] | [phone] | | [facility] | | [address] | | | - LABORATORY | | [...] [address] | [place] | [phone] | | [facility] | | [address] | | | - LABORATORY | | [...] [address] | [place] | [phone] | | [facility] | | [address] | | | - LABORATORY | | [...] mL/min/1.73m2 | [facility] | | | [place] | | | MEDICAL | | | [...] ST. | [address] | [place] | [phone] | | [facility] | | [address] | | | - LABORATORY | | [...] + | [facility] | [address] | [place] | [phone] | | [facility] | | [address] | | | - LABORATORY | | [...] | | | POC | | | [facility] | | | | | | [...] + | [facility] | [address] | [place] | [phone] | | [facility] | | [address] | | | - LABORATORY | | [...] [address] | [place] | [phone] | | [facility] | | [address] | | | - LABORATORY | | [...] + | [facility] | [address] | [place] | [phone] | | [facility] | | [address] | | | - LABORATORY | | [...] mL/min/1.73m2 | [facility] | | | D[place]CH | | | MEDICAL | | | [...] [address] | [place] | [phone] | | [facility] | | [address] | | | - LABORATORY | | [...] [address] | [place] | [phone] | | [facility] | | [address] | | | - LABORATORY | | [...] + | [facility] | [address] | [place] | [phone] | | [facility] | | [address] | | | - LABORATORY | | [...] [address] | [place] | [phone] | | [facility] | | [address] | | | - LABORATORY | | [...] [address] | [place] | [phone] | | [facility] | | [address] | | | - LABORATORY | | [...] + | [facility] | [address] | [place] | [phone] | | [facility] | | [address] | | | - LABORATORY | | [...] mL/min/1.73m2 | [facility] | | | [place] | | | MEDICAL | | | [...] [address] | [place] | [phone] | | [facility] | | [address] | | | - LABORATORY | | [...] [address] | [place] | [phone] | | [facility] | | [address] | | | - LABORATORY | | [...] ST. | [address] | [place], [place] | [phone] | | [facility] | | [address] | | | - LABORATORY | | [...] + | [facility] | [address] | [place] | [phone] | | [facility] | | [address] | | | - LABORATORY | | [...] [address] | [place] | [phone] | | [facility] | | [address] | | | - LABORATORY | | [...] | | | POC | | | [facility] | | | | | | [...] + | [facility] | [address] | [place] | [phone] | | [facility] | | [address] | | | - LABORATORY | | [...] mL/min/1.73m2 | [facility] | | | [place] | | | MEDICAL | | | [...] [address] | [place] | [phone] | | [facility] | | [address] | | | - LABORATORY | | [...] [address] | [place] | [phone] | | [facility] | | [address] | | | - LABORATORY | | [...] [address] | [place] | [phone] | | [facility] | | [address] | | | - LABORATORY | | [...] | [address] | [place] | [phone] | | [facility] | | [address] | | | - LABORATORY | | [...] + | [facility] | [address] | [place] | [phone] | | [facility] | | [address] | | | - LABORATORY | | [...] mL/min/1.73m2 | [facility] | | | [place] | RATE,ESTIMATED | | MEDICAL | | | | mL/min/1.10r1Jkhc than | | CENTER - | | [...] + + + + + + | Albumin/Bceky | 0.5 (L) | 0.8 - 2.0 [...] [address] | [place] | [phone] | | [facility] | | [address] | | | - LABORATORY | | [...] | | | POC | | | [facility] | | | | | | [...] + | [facility] | [address] | [place] | [phone] | | [facility] | | [address] | | | - LABORATORY | | [...] [address] | [place] | [phone] | | [facility] | | [address] | | | - LABORATORY | | [...] + | [facility] | [address] | [place] | [phone] | | [facility] | | [address] | | | - LABORATORY | | [...] + | [facility] | [address] | [place], [place] | [phone] | | [facility] | | [address] | | | - LABORATORY | | [...] + + | [facility] | [address] | [place] | [phone] | | [facility] | | [address] | | | - LABORATORY | | [...] mL/min/1.73m2 | [facility] | | | D[place]CH | | | MEDICAL | | | [...] [address] | [place] | [phone] | | [facility] | | [address] | | | - LABORATORY | | [...] [address] | [place] | [phone] | | [facility] | | [address] | | | - LABORATORY | | [...] + | [facility] | [address] | [place] | [phone] | | [facility] | | [address] | | | - LABORATORY | | [...] + | [facility] | [address] | [place] | [phone] | | [facility] | | [address] | | | - LABORATORY | | [...] [address] | [place] | [phone] | | [facility] | | [address] | | | - LABORATORY | | [...] + | [facility] | [address] | [place] | [phone] | | [facility] | | [address] | | | - LABORATORY | | [...] [address] | [place] | [phone] | | [facility] | | [address] | | | - LABORATORY | | [...] [address] | [place] | [phone] | | [facility] | | [address] | | | - LABORATORY | | [...] [address] | [place] | [phone] | | [facility] | | [address] | | | - LABORATORY | | [...] mL/min/1.73m2 | [facility] | | | DUTCH | | | MEDICAL | | | [address] | [place] | [phone] | | [facility] | | [address] | | | - LABORATORY | | [...] + | [facility] | [address] | [place], [place] | [phone] | | [facility] | | [address] | | | - LABORATORY | | [...] [address] | [place] | [phone] | | [facility] | | [address] | | | - LABORATORY | | [...] [address] | [place] | [phone] | | [facility] | | [address] | | | - LABORATORY | | [...] + | [facility] | [address] | [place] | [phone] | | [facility] | | [address] | | | - LABORATORY | | [...] [address] | [place] | [phone] | | [facility] | | [address] | | | - LABORATORY | | [...] mL/min/1.73m2 | [facility] | | | D[place] | | | MEDICAL | | | [...] [address] | [place] | [phone] | | [facility] | | [address] | | | - LABORATORY | | [...] [address] | [place] | [phone] | | [facility] | | [address] | | | - LABORATORY | | [...] ST. | [address] | [place] | [phone] | | [facility] | | [address] | | | - LABORATORY | | [...] + | [facility] | [address] | [place] | [phone] | | [facility] | | [address] | | | - LABORATORY | | [...] ST. | [address] | [place], [place] | [phone] | | [facility] | | [address] | | | - LABORATORY | | [...] [address] | [place] | [phone] | | [facility] | | [address] | | | - LABORATORY | | [...] + | [facility] | [address] | [place] | [phone] | | [facility] | | [address] | | | - LABORATORY | | [...] [address] | [place] | [phone] | | [facility] | | [address] | | | - LABORATORY | | [...] (HH)Comment: | 7 - 18 mg/dL | [facility] | | | | Critical Result [...] 5.56 (H) | 0.60 - 1.30 | [facility] | | | | | mg/dL | [facility] | | | | | | MEDICAL | | | | | | CENTER - | | | | | | LABORATORY | | + + + + + + | eGFR if not | 10 (L)Comment: | >=60 | [facility] | | | | GLOMERULAR FILTRATION | mL/min/1.73m2 | [facility] | | | [facility] | RATE,ESTIMATED | | MEDICAL | | | | mL/min/1.57y9Xwoz than | | CENTER - | | [...] [address] | [place] | [phone] | | [facility] | | [address] | | | - LABORATORY | | [...] [address] | [place] | [phone] | | [facility] | | [address] | | | - LABORATORY | | [...] + | [facility] | [address] | [place] | [phone] | | [facility] | | [address] | | | - LABORATORY | | [...] | | | | mmol/L | [facility] | | | | | | MEDICAL [...] mL/min/1.73m2 | [facility] | | | [facility] | RATE,ESTIMATED | | MEDICAL | | | | mL/min/1.15f3Fecp than | | CENTER - | | [...] + | [facility] | [address] | [place] | [phone] | | [facility] | | [address] | | | - LABORATORY | | [...] + | [facility] | [address] | [place] | [phone] | | [facility] | | [address] | | | - LABORATORY | | [...] ST. | [address] | [place] | [phone] | | [facility] | | [address] | | | - LABORATORY | | [...] | | [facility] | | | [facility] | | | - LABORATORY | + + + + + + + + | Performing | Address | City/State/Zipcode | Phone Number | | Organization | | | | + + + + + | [facility] | [address] | [place] | [phone] | | [facility] | | [address] | | | - LABORATORY | | [...] [address] | [place] | [phone] | | [facility] | | [address] | | | - LABORATORY | | [...] [address] | [place] | [phone] | | [facility] | | [address] | | | - LABORATORY | | [...] ST. | [address] | [place], [place] | [phone] | | [facility] | | [address] | | | - LABORATORY | | [...] [address] | [place] | [phone] | | [facility] | | [address] | | | - LABORATORY | | [...] [address] | [place] | [phone] | | [facility] | | [address] | | | - LABORATORY | | [...] | Performed at: 01 - [facility] [address] [place] [address], | REFERENCE LAB | | [place], [place] [id number] Healthcare Insurance Sales Agent: Judy Tovar MD, Phone: | [facility] | | [phone] | | + + + + + + + + | Performing | Address | City/State/Zipcode | Phone Number | | Organization | | | | + + + + + | REFERENCE LAB | [address] | [place] [address] | [phone] | | [facility] | Drive [address] | [place] | [phone] | | [facility] | | [address] | | | - LABORATORY | | [...] + | [facility] | [address] | [place] | [phone] | | [facility] | | [address] | | | - LABORATORY | | [...] [address] | [place] | [phone] | | [facility] | | [address] | | | - LABORATORY | | [address] | [place] | [phone] | | [facility] | | [address] | | | - LABORATORY | | [...] + | [facility] | [address] | [place] | [phone] | | [facility] | | [address] | | | - LABORATORY | | [...] | | | FILTRATION | mL/min/1.73m2 | [facility] | | | [place] | RATE,ESTIMATED | | MEDICAL | | | | mL/min/1.24d3Blgf than | | CENTER - | | [...] [address] | [place] | [phone] | | [facility] | | [address] | | | - LABORATORY | | [...] + | [facility] | [address] | [place] | [phone] | | [facility] | | [address] | | | - LABORATORY | | [...] + | Performed at: 01 - [facility] [place] [address], | REFERENCE LAB | | [place], [place] [id number] Healthcare Insurance Sales Agent: Salazar Ocampo MD, Phone: | [facility] | | [phone] | | + + + + + + + + | Performing | Address | City/State/Zipcode | Phone Number | | Organization | | | | + + + + + | REFERENCE LAB | [address] | [place] [address] | [phone] | | [facility] | Drive [...] | REFERENCE LAB | | [place] [id number] Healthcare Insurance Sales Agent: Judy Tovar MD, Phone: | [facility] | | [phone] | | + + + + + + + + | Performing | Address | City/State/Zipcode | Phone Number | | Organization | | | | + + + + + | REFERENCE LAB | [address] | [place] [address] | [phone] | | [facility] | Drive [...] + | [facility] | [address] | [place] | [phone] | | [facility] | | [address] | | | - LABORATORY | | [...] ST. | [address] | [place] | [phone] | | [facility] | | [address] | | | - LABORATORY | | [...] 6.71 (H) | 0.60 - 1.30 | [facility] | | | | | mg/dL | [facility] | | | | | | MEDICAL | | | | | | CENTER - | | | | | | LABORATORY | | + + + + + + | eGFR if not | 8 (L)Comment: GLOMERULAR | >=60 | [facility] | | | | FILTRATION | mL/min/1.73m2 | [facility] | | | DUTCH | RATE,ESTIMATED | | MEDICAL | | | | mL/min/1.49z2Jayz than | | CENTER - | | [...] + | [facility] | [address] | [place] | [phone] | | [facility] | | [address] | | | - LABORATORY | | [...] ST. | [address] | [place] | [phone] | | [facility] | | [address] | | | - LABORATORY | | [...] + + + | Performed at: - [facility] [address], | REFERENCE LAB | | [place], [place] [id number] Healthcare Insurance Sales Agent: Salazar Ocampo MD, Phone: | [facility] | | [phone] | | + + + + + + + + | Performing | Address | City/State/Zipcode | Phone Number | | Organization | | | | + + + + + | REFERENCE LAB | [address] | [place] [address] | [phone] | | [facility] | Drive [address] | [place] | [phone] | | [facility] | | [address] | | | - LABORATORY | | [...] | REFERENCE | | | | of [employer] | | LAB [facility] | | | | standards require a | | - [facility] | | | | culture to beperformed | | | | | | on CSF specimens | | | | | | submitted for bacterial | | | | | | antigen testing.(CAP | | | | | | [id number]) Urine | | | | | | [...] + + | Performed at: 01 - [facility], | REFERENCE LAB | | [place], [place] [id number] Healthcare Insurance Sales Agent: Judy Tovar MD, Phone: | [facility] | | [phone] | | + + + + + + + + | Performing | Address | City/State/Zipcode | Phone Number | | Organization | | | | + + + + + | REFERENCE LAB | [address] | [place] [address] | [phone] | | [facility] | Drive [...] - 1.030 | [facility] | | | [place] | | | [facility] | | [...] [address] | [place] | [phone] | | [facility] | | [address] | | | - LABORATORY | | [...] + + | Performing | Address | City/State/[facility] Services[facility] | Phone Number | | Organization | [...] + | [facility] | [address] | [place] | [phone] | | [facility] | | [address] | | | - LABORATORY | | [...] [address] | [place] | [phone] | | [facility] | | [address] | | | - LABORATORY | | [...] + | [facility] [facility] | [address] | [place] | [phone] | | [facility] | | [address] | | | - LABORATORY | | [...] [address] | [place] | [phone] | | [facility] | | [address] | | | - LABORATORY | | [...] | | | | | | [employer] | | | | | [...] ST. | [address] | [place], [place] | [phone] | | [facility] | | [address] | | | - LABORATORY | | [...] + | [facility] | [address] | [place] | [phone] | | [facility] | | [address] | | | - LABORATORY | | [...] [address] | [place] | [phone] | | [facility] | | [address] | | | - LABORATORY | | [...] | Direct | | mg/dl | [facility] | | | | | | MEDICAL [...] [address] | [place] | [phone] | | [facility] | | [address] | | | - LABORATORY | | [...] + | [facility] | [address] | [place] | [phone] | | [facility] | | [address] | | | - LABORATORY | | [...] + | [facility] | [address] | [place] | [phone] | | [facility] | | [address] | | | - LABORATORY | | [...] [address] | [place] | [phone] | | [facility] | | [address] | | | - LABORATORY | | [...] [address] | [place] | [phone] | | [facility] | | [address] | | | - LABORATORY | | [...] ordering provider by the | | | surgical scrub technologist immediately following the exam. Dictated | [...] the ordering provider by the | | surgical scrub technologist immediately following the exam. | | [...] [address] | [place] | [phone] | | [facility] | | [address] | | | - LABORATORY | | [...] | + + + + + | [address] | [address] | [place] | [phone] | | [facility] | | [address] | | | - LABORATORY | | [...] [address] | [place] | [phone] | | [facility] | | [address] | | | - LABORATORY | | [...] [address] | [place] | [phone] | | [facility] | | [address] | | | - LABORATORY | | [...] | | | Anticoagulation Range: | | [facility] | | | | 2.0 - [...] [address] | [place] | [phone] | | [facility] | | [address] | | | - LABORATORY | | [...] | | Critical Result called | | [facility] | | | | to and [...] [address] | [place] | [phone] | | [facility] | | [address] | | | - LABORATORY | | [...] [address] | [place] | [phone] | | [facility] | | [address] | | | - LABORATORY | | [...] + | [address] | [address] | [place] | [phone] | | [facility] | | [address] | | | - LABORATORY | | [...] [address] | [place] | [phone] | | [facility] | | [address] | | | - LABORATORY | | [...] | | | | | | [facility] | | | | | | MEDICAL [...] [address] | [place] | [phone] | | [facility] | | [address] | | | - LABORATORY | | [...] mL/min/1.73m2 | [facility] | | | [facility]UTCH | RATE,ESTIMATED | | MEDICAL | | | | mL/min/1.87j1Fsir than | | CENTER - | | [...] | | | | mg/dL | [facility] | | | | | | MEDICAL [...] + | [facility] | [address] | [place] | [phone] | | [facility] | | [address] | | | - LABORATORY | | [...] [address] | [place] | [phone] | | [facility] | | [address] | | | - LABORATORY | | [...] PRN, PRN | | | hypotension., Starting [facility] | | | 06/29/18 at 0921, For [...] | | | | | Intracatheter, ONCE, [facility] 07/06/18 | | AM PST | [...] Low | | | Blood Sugar, Starting [facility] 06/26/18 | | | at 1313 | | + +---+ | | | + +---+ | diphenhydrAMINE (BENADRYL) 12.5 | | | mg/5 mL liquid 25 mg 25 mg, | | | Oral, EVERY 4 HOURS PRN, Itching, | | | Starting [facility] 07/03/18 at 1719, | | | Oral [...] PST | | | | | Starting [facility] 06/29/18 at 0721, | | | [...] PST | | | | | Starting [facility] 06/29/18 at 1448, | | | [...] | | | | | | | [facility] 06/28/18 at 1345, Dialysis | | | [...] | | | | | care, Starting [facility] 06/29/18 at | | | | [...] | | | | | NPO, Daytime 0779-1047 Use NIGHT | | | | | | | DOSE for doses scheduled: | | | | | | | HS, 3AM, Nighttime 1003-4972, | | | | | | + [...]
--- OUTSIDE RECORDS SUMMARY | ~2019-07-14 | XMS | Encounter Summary ---
Demographics + + + | Address | [address] | | | [place] [address] | + + + | Home Phone [...] + | Lula Kerr | ECON | [address] | | | | | [place] | | | | | [address] | | + + + + + Care Team Providers + +------+ + | Care Protective Signal Superintendent Name | Role | Phone | [...] NEPHROLOGY [address] | MD [address] | (Asymptomatic) | | | | [address] | [address] [place] | | | | | [place], [place] | [place] [address] | | | | | [address] | [phone] | | | | | [phone] | | | +--------+ + + + [...] 2018 | Visit | | DO Rolan [address] [place] [address] | | | | | | [address] | | | | | | [place] | | | | | | [address] | | | | | | | | +--------+ + + + + | 09/25/ | Office | Cardiology | Sheldon Spence | | | 2019 | Visit | | MD [address] | | | | | | [facility] | | | | | | [place] | | | | | | [phone] | | | | | | | [...] | | | | | [place], [place] | | | | | | [address] | | | | | | | [...]
--- OUTSIDE RECORDS SUMMARY | ~2019-07-14 | XMS | Encounter Summary ---
Demographics + + + | Address | [address] | | | [place] [address] | + + + | Home Phone | | + + + | Preferred Language | Unknown | + + + | Marital Status | | + + + | Yazdanism Affiliation | 1041 | + + + | Race | Unknown | + + + | Ethnic Group | Unknown | + + + Author + + + | Author | [facility] | | | and [place] | + + + | Organization | [facility] | | | and [place] | + + + | Address | Unknown | + + + | Phone | Unavailable | + + + Support + + + + + | Name | Relationship | Address | Phone | + + + + + | Lula Kerr | ECON | [address] | | | | | [place] | | | | | [address] | | + + + + + Care Team Providers + +------+ + | 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 Name | Role | Phone | + [...] | NEPHROLOGY [address] | [address] | arteriovenous | | | | [address] | [address] [place] | dialysis fistula, | | | | [place], [place] | [place] [address] | initial encounter | | | | [address] | [phone] | (Primary Dx); ESRD | | | | [phone] | | (end stage renal | | | | | | disease) on dialysis | | | | | | ([facility]) | +--------+ + + + [...] | Visit | | DO Rolan [address] | | | | | | [address] | | | | | | [place] | | | | | | [address] | | | | | | | | +--------+ + + + + | 09/25/ | Office | Cardiology | Sheldon Spence | | | 2019 | Visit | | MD [address] | | | | | | [address] [place] | | | | | | [place] | | | | | | [address] | | | | | | | [...] | | | | | [place], [place] | | | | | | [address] | | | | | | | [...] Poor fistula flow COMPARISON STUDIES: None. PRIMARY RESTAURANT WORKER: | | | Velasquez Hayes MD, PhD, [...] Patient | | | washeparinized. A 6 Indian sheath was placed. A 6 x 40 [...] STUDIES: None. | | | | PRIMARY RESTAURANT WORKER: Velasquez Hayes MD, PhD, RPVI | | [...] Patient was | | heparinized. A 6 Indian sheath was placed. A 6 x 40 [...]
--- OUTSIDE RECORDS SUMMARY | ~2019-07-14 | XMS | Encounter Summary ---
Demographics + + + | Address | [address] | | | [place] [address] | + + + | Home Phone [...] + | Lula Kerr | ECON | [address] | | | | | [place] | | | | | [address] | | + + + + + Care Team Providers + +------+ + | Care Central Office Technician Name | Role | Phone | [...] Ninfa GLEASON | | | | | [phone] | [place] [address] | | +--------+ + + + + [...] | Visit | | DO Rolan [address] | | | | | | [address] | | | | | | [place] | | | | | | [address] | | | | | | | | +--------+ + + + + | 09/25/ | Office | Cardiology | Sheldon Spence | | | 2019 | Visit | | MD [address] | | | | | | [address] | | | | | | [place] | | | | | | [address] | | | | | | | | +--------+ + + + + | 09/25/ | Procedure | Cardiology | | | | 2019 | visit | | | | +--------+ + + + + | 11/28/ | Office | Cardiology | Ntaalie Luo DO | | | 2019 | Visit | | [address] | | | | | | [place] | | | | | | [address] | | | | | | | [...]
--- OUTSIDE RECORDS SUMMARY | ~2019-07-14 | XMS | Encounter Summary ---
Demographics + + + | Address | [address] | | | [place] [address] | + + + | Home Phone | | + + + | Preferred Language | Unknown | + + + | Marital Status | | + + + | Uatsdin Affiliation | 1041 | + + + | Race | Unknown | + + + | Ethnic Group | Unknown | + + + Author + + + | Author | [facility] | | | and [place] | + + + | Organization | [facility] | | | and [place] | + + + | Address | Unknown | + + + | Phone | Unavailable | + + + Support + + + + + | Name | Relationship | Address | Phone | + + + + + | Lula Kerr | ECON | [address] | | | | | [place] | | | | | [address] | | + + + + + Care Team Providers + +------+ + | Care Exchange Architect Name | Role | Phone | [...] NEPHROLOGY [address] | MD [address] | (Asymptomatic) | | | | [address] | [address] [place] | | | | | [place], [place] | [place] [address] | | | | | [address] | [phone] | | | | | [phone] | | | +--------+ + + + [...] 2 D M, obesity hypoventilation, admitted to [facility] on 06/26/18, with pneumonia, septic shock, and acute on chronic kidney injury due to acute tubular necrosis. Pt initiated inpatient hemodi alysis on 06/28/18. A right IJ tunneled HD catheter was placed on 07/03/18. Pt was discharg ed from [facility] on 07/08/18 to [facility]. Pt started outpatient dialysis in [place] on 07/10/18. Pt had received two outpatient HD sessions thus far. Today is his 3rd outpatient dialysis session. Unfortunately, pt has developed significant lower extremity edema since discharge from hosp [facility]. His pre-weight today is 119 kg. [...] Carvedilol dose was discontinued at that time. [facility] Patient Active Problem List Diagnosis Date Noted Pneumonia due to infectious organism 06/26/2018 Priority: High Class: Acute Severe sepsis with septic shock ([facility]) 06/26/2018 Priority: High Class: Acute Cellulitis of left lower extremity 06/26/2018 Priority: High Class: Acute Acute kidney injury superimposed on chronic kidney disease (HCC) 06/26/2018 Priority: High Class: Acute Type 2 diabetes mellitus with stage 4 chronic kidney disease, without long-term current use of insulin ([facility]) 06/26/2018 Priority: High Acute metabolic encephalopathy 06/28/2018 Acute on chronic systolic heart failure ([facility]) 06/28/2018 Obesity, morbid ([facility]) 09/16/2014 Diabetes type 2, controlled ([facility]) 09/16/2014 Chest pain with high risk for [...] defibrilator ; Surgeon: Meredith forbes MD; Location: [facility] MEDICAL PROCEDURE UNIT pacemaker medtronic SHUNT PLACEMENT/INSERTION Right 07/03/2018 Procedure: INSERTION SHUNT HEMODIALYSIS W/ PERMACATH; Surgeon: Melba Wallace MD; L ocation: [facility] MAIN OR Social History Social History Marital [...] reflect DNR/DNI wish. Cc: MD Reginald Javier [facility] documented in this encounter Plan of Treatment +--------+ + + + + | Date | Type | Specialty | Care Team | Description | +--------+ + + + + | 07/16/ | Off-Site | Nephrology | Maty Tian | | | 2018 | Visit | | DO Rolan [address] [place] [address] | | | | | | [address] | | | | | | [place] | | | | | | [address] | | | | | | | | +--------+ + + + + | 09/25/ | Office | Cardiology | Sheldon Spence | | | 2019 | Visit | | MD [address] | | | | | | [facility] | | | | | | [place] | | | | | | [address] | | | | | | | [...] [place] | | | | | | [address] | | | | | | | [...]
--- OUTSIDE RECORDS SUMMARY | ~2019-07-14 | XMS | Encounter Summary ---
Demographics + + + | Address | [address] | | | [place] [address] | + + + | Home Phone | | + + + | Preferred Language | Unknown | + + + | Marital Status | | + + + | Advent Affiliation | 1041 | + + + | Race | Unknown | + + + | Ethnic Group | Unknown | + + + Author + + + | Author | [facility] | | | and [place] | + + + | Organization | [facility] | | | and [place] | + + + | Address | Unknown | + + + | Phone | Unavailable | + + + Support + + + + + | Name | Relationship | Address | Phone | + + + + + | Lula Kerr | ECON | [address] | | | | | [place] | | | | | [address] | | + + + + + Care Team Providers + +------+ + | Care Air Carrier Maintenance Inspector Name | Role | Phone | [...] | | | | | [address] | [address] [place] | | | | | [place] | [place] [address] | | | | | [address] | [phone] | | | | | [phone] | | | +--------+ + + + [...] + + | Periph | 12/18/15; 0850; [id number] | 12/18/15 0850 by | 07/03/18 0800 [...] | Visit | | DO Rolan [address] [place] | | | | | | [address] | | | | | | [place] | | | | | | [phone] | | | | | | | | +--------+ + + + + | 09/25/ | Office | Cardiology | Sheldon Spence | | | 2019 | Visit | | MD [address] | | | | | | [address] | | | | | | [place] | | | | | | [address] | | | | | | | [...] [place] | | | | | | [address] | | | | | | | [...] 10:05 | | | | | Starting [facility] 12/18/15 at 0945, | | AM [...]
--- OUTSIDE RECORDS SUMMARY | ~2019-07-14 | XMS | Encounter Summary ---
Demographics + + + | Address | [address] | | | [place] [address] | + + + | Home Phone [...] + | Lula Kerr | ECON | [address] | | | | | [place] | | | | | [address] | | + + + + + Care Team Providers + +------+ + | Care Cyber Security Systems Engineer Name | Role | Phone | [...] | [address] | renal disease) ([facility]) | | | | [address] | [address] [place] | (Primary Dx) | | | | [place], [place] | [place] [address] | | | | | [address] | [phone] | | | | | [phone] | | | +--------+ + + + [...] Visit | | DO Rolan [address] | | | | | | [address] | | | | | | [place] | | | | | | [address] | | | | | | | | +--------+ + + + + | 09/25/ | Office | Cardiology | Sheldon Spence | | | 2019 | Visit | | MD [address] | | | | | | [address] | | | | | | [place] | | | | | | [address] | | | | | | | [...] [place] | | | | | | [address] | | | | | | | | +--------+ + + + + documented as of this encounter Visit Diagnoses + + | Diagnosis | + + | ESRD (end stage renal disease) (HCC) - Primary End stage renal disease | + + documented in this encounter"
--- OUTSIDE RECORDS SUMMARY | ~2019-07-14 | XMS | Encounter Summary ---
Demographics + + + | Address | [address] | | | [place] [address] | + + + | Home Phone | | + + + | Preferred Language | Unknown | + + + | Marital Status | | + + + | Taoist Affiliation | 1041 | + + + | Race | Unknown | + + + | Ethnic Group | Unknown | + + + Author + + + | Author | [facility] | | | and [place] | + + + | Organization | [facility] | | | and [place] | + + + | Address | Unknown | + + + | Phone | Unavailable | + + + Support + + + + + | Name | Relationship | Address | Phone | + + + + + | Lula Kerr | ECON | [address] | | | | | [place] | | | | | [address] | | + + + + + Care Team Providers + +------+ + | Care Preschool Teacher Assistant Name | Role | Phone | + +------+ + PCP | Unavailable | + +------+ + Encounter Details +--------+ + + + + | Date | Type | Department | Care Team | Description | +--------+ + + + + | 01/26/ | Hospital | [facility] | | | | 2001 | Encounter | MED CTR LABORATORY | | | | | | [address] [place] | | | | | | [place] | | | | | | [address] | | | | | | [phone] | | | +--------+ + + + [...] 2019 | Visit | | DO Rolan [address] [place] [address] | | | | | | [place], [address] | | | | | | [place] | | | | | | [id number] | | | | | | | | +--------+ + + + + | 09/25/ | Office | Cardiology | Sheldon Spence | | | 2019 | Visit | | MD [address] | | | | | | [address] | | | | | | [place] | | | | | | [address] | | | | | | | [...] [place] | | | | | | [address] | | | | | | | | +--------+ + + + + documented as of this encounter Visit Diagnoses Not on filedocumented in this encounter"
--- OUTSIDE RECORDS SUMMARY | ~2019-07-14 | XMS | Encounter Summary ---
Demographics + + + | Address | [address] | | | [place] [address] | + + + | Home Phone | | + + + | Preferred Language | Unknown | + + + | Marital Status | | + + + | Anabaptism Affiliation | 1041 | + + + [...] + | Lula Kerr | ECON | [address] | | | | | [place] | | | | | [address] | | + + + + + Care Team Providers + +------+ + | Care Export Freight Clerk Name | Role | Phone | + +------+ + | Gregory Drummond MD | PCP | | + +------+ + Encounter Details +--------+ + + + + | Date | Type | Department | Care Team | Description | +--------+ + + + + | 10/30/ | Orders Only | [facility] | Marline Morse, WILDLIFE VETERINARIAN | | | 2019 | | MED CTR PULMONARY | | | | | | FUNCTION [address] | | | | | | [place], | | | | | | [place] [address] | | | | | | [phone] | | | +--------+ + + + [...] | Visit | | M, DO [address] | | | | | | [place], [address] | | | | | | [place] | | | | | | [address] | | | | | | | | +--------+ + + + + | 09/25/ | Office | Cardiology | Sheldon Spence | | | 2019 | Visit | | MD [address] | | | | | | [place] | | | | | | [place] | | | | | | [address] | | | | | | | [...] [place] | | | | | | [address] | | | | | | | [...]
--- OUTSIDE RECORDS SUMMARY | ~2019-07-14 | XMS | Encounter Summary ---
Demographics + + + | Address | [address] | | | [place] [address] | + + + | Home Phone [...] + | Lula Kerr | ECON | [address] | | | | | [place] | | | | | [address] | | + + + + + Care Team Providers + +------+ + | Care Warp Trucker Name | Role | Phone | + [...] | | | | | [address] | [place] [facility] | | | | | [place], [place] | [address] | | | | | [address] | | | | | | [phone] | | | +--------+---------+ + + + [...] please call the Dialysis Cent er at [phone] or the [facility] at [phone]. FISTULOGRAM SITE CARE * If you have [...] concerns after business hours, please call the [facility] at [phone]. YOUR DOCTOR'S OFFICE NUMBER IS Recovery After [...] You can't be awakened Date Last Reviewed: 05/11/201619999724-7642 [employer]. [address] [place] [address], [place] [address]. All righ ts reserved. This information is [...] 2018 | Visit | | DO Rolan [address] [place] [address] | | | | | | [address] | | | | | | [place] | | | | | | [address] | | | | | | | | +--------+ + + + + | 09/25/ | Office | Cardiology | Sheldon Spence | | | 2019 | Visit | | MD [address] | | | | | | [address] | | | | | | [place] | | | | | | [address] | | | | | | | [...] [place] | | | | | | [address] | | | | | | | [...] | | | | | | dialysis ([facility]) | | + +--------+ + [...] + + + + + | [facility] | [address] | [place] | [phone] | | [facility] | | [address] | | | - LABORATORY | | | | + + + + + IR Angiogram Upper Extremity Right (12/14/2018 3:46 PM PDT) + + | Specimen | + + | | + + + + -----+ | Narrative | Performed At | + + -----+ | CLINICAL DATA: | [facility] | | Poor fistula flow COMPARISON STUDIES: None. PRIMARY ALUMINUM POOL INSTALLER: | | | Velasquez Hayes MD, PhD, [...] Patient | | | washeparinized. A 6 Surinamese sheath was placed. A 6 x 40 [...] STUDIES: None. | | | | PRIMARY ALUMINUM POOL INSTALLER: Velasquez Hayes MD, PhD, RPVI | | [...] Patient was | | heparinized. A 6 Surinamese sheath was placed. A 6 x 40 [...] + | [facility] | [address] | [place] | [phone] | | [facility] | | [address] | | | - LABORATORY | | [...] port was used., | | | Starting [facility] 12/14/18 at 1240, For | | | 1 dose, Pre-op | | + +---+ | | | + +---+ + +-------+ +---------+---+ + | lidocaine buffered 0.9% | Given | 12/15/19 | 0.5 mLs | | Surgical | | injection Infiltration, PRN, | | 19 3:07 | | | Site | | Starting [facility] 12/14/18 at 1507 | | PM PDT [...]
--- OUTSIDE RECORDS SUMMARY | ~2019-07-14 | XMS | Encounter Summary ---
Demographics + + + | Address | [address] | | | [place] [address] | + + + | Home Phone [...] + | Lula Kerr | ECON | [address] | | | | | [place] | | | | | [address] | | + + + + + Care Team Providers + +------+ + | Care Linen Room Supervisor Name | Role | Phone | [...] | | [address] | [place], [address] | | | | | [place], [place] | [place], [place] | | | | | [address] | [address] | | | | | [phone] | | | +--------+ + + + [...] admissions packet was manually fa xed to [facility] for patient to start hemodialysis at [facility] on . documented in this encounter Plan of Treatment +--------+ + + + + | Date | Type | Specialty | Care Team | Description | +--------+ + + + + | 07/16/ | Off-Site | Nephrology | Maty Tian | | | 2018 | Visit | | DO Rolan [address] | | | | | | [address] | | | | | | [place] | | | | | | [address] | | | | | | | | +--------+ + + + + | 09/25/ | Office | Cardiology | Sheldon Spence | | | 2019 | Visit | | MD [address] | | | | | | [address] | | | | | | [place] | | | | | | [address] | | | | | | | [...] [place] | | | | | | [address] | | | | | | | | +--------+ + + + + documented as of this encounter Visit Diagnoses Not on filedocumented in this encounter
--- OUTSIDE RECORDS SUMMARY | ~2019-07-14 | XMS | Encounter Summary ---
Demographics + + + | Address | [address] | | | [place] [address] | + + + | Home Phone [...] + | Lula Kerr | ECON | [address] | | | | | [place] | | | | | [address] | | + + + + + Care Team Providers + +------+ + | Care Director Of Land Acquisition Name | Role | Phone | + [...] + | 10/30/ | Telephone | [facility] | Melba Wallace | Other | | 2019 | | SURGERY [address] | MD Mik[address] | | | | | [address] [place], [place] | [address] [place] | | | | | [address] | [place] [address] | | | | | [phone] | [phone] | | | | | | | [...] [place] | | | | | | [address] | | | | | | | | +--------+ + + + + | 09/25/ | Office | Cardiology | Sheldon Spence | | | 2019 | Visit | | MD [address] | | | | | | [place] | | | | | | [place] | | | | | | [address] | | | | | | | [...] [place] | | | | | | [address] | | | | | | | [...]
--- OUTSIDE RECORDS SUMMARY | ~2019-07-14 | XMS | Encounter Summary ---
Demographics + + + | Address | [address] | | | [place] [address] | + + + | Home Phone | | + + + | Preferred Language | Unknown | + + + | Marital Status | | + + + | Confucianist Affiliation | 1041 | + + + [...] + | Lula Kerr | ECON | [address] | | | | | [place] | | | | | [address] | | + + + + + Care Team Providers + +------+ + | Care Repairer General Name | Role | Phone | + [...] | Ramesh | | | | | [place] w/ | Sheldon | Cardiology | | | | | Bebe. | MD Paul | Mp | | | | | Procedures | [address] | | | | | CARD DEVICE | [address] | | | | | | CHECK | [address], [place] | [place], [place] | | | | | | [place], | [address] | | | | | | [place] [address] | Phone: | | | | | | Phone: | [phone] | | | | | | [phone] | Fax: | | | | | | Fax: | [phone] | | | | | | [phone] | | +--------+--------+ + + + + Encounter Details +--------+ + + + + | Date | Type | Department | Care Team | Description | +--------+ + + + + | 03/21/ | Procedure | [facility] | | AICD (automatic | | 2019 | visit | CARDIOLOGY [place] | | cardioverter/defibri | | | | [address] | | llator) present | | | | [place], [place] | | (Primary Dx); | | | | [address] | | Ischemic | | | | [phone] | | cardiomyopathy; Left | | | [...] 2018 | Visit | | DO Rolan [address] [place] [address] | | | | | | [address] | | | | | | [place] | | | | | | [address] | | | | | | | | +--------+ + + + + | 09/25/ | Office | Cardiology | Sheldon Spence | | | 2019 | Visit | | MD [address] | | | | | | [place] | | | | | | [place] | | | | | | [address] | | | | | | | [...] [place] | | | | | | [address] | | | | | | | [...] | + + + | Sandra Parker, Retail Branch Manager 03/22/2019 9:19 Device | [employer] | | interrogation done by Sangeetha Spence Any events or changes listed in | | | office note. See device data attached to scheduled encounter for | | | additional details. tan room supervisor: Sandra Parker, Device Clinic Tech | | [...]
--- OUTSIDE RECORDS SUMMARY | ~2019-07-14 | XMS | Clinical Summary ---
Demographics + + + | Address | [address] | | | [place] [address] | + + + | Home Phone | | + + + | Preferred Language | Unknown | + + + | Marital Status | | + + + | Synagogue Affiliation | Unknown | + + + [...] Team Providers + +------+ + | Care Rn Telephonic Name | Role | Phone | + +------+ + | Gregory Drummond MD | PCP | | + +------+ + Source Comments BRIAN is fully live on both [facility] Ambulatory and [facility] InPatient.[facility] Allergies Not on File Medications Not [...] | | | | | Jenn Varner [place], | | | | | | [place] [address] | | | | | | [phone] | | | | | | | [...] | | | | | | | [address] | | + +--------+ +--------+ + +--------+ | [employer] | AARP | xxxxxxxxxxx | 07/25/19 | [phone] | [address] | Indemn | | RETIRED PEOPLE | | | 19-Pre | 9 | [id number] | ity | | | | | sent | | [place], [place] | | | | | | | | [address] | | + +--------+ +--------+ + +--------+ | [facility] | | xxx | 07/12/ | [...] Person | Self | [birth year] | | [address] | | | al/Fam | | 1946 | [phone] | [place] [address] | | | eliane | | | 4 (Home) | | + +--------+ +--------+ + +"
--- OUTSIDE RECORDS SUMMARY | ~2019-07-14 | XMS | Encounter Summary ---
Demographics + + + | Address | [address] | | | [place] [address] | + + + | Home Phone [...] + | Lula Kerr | ECON | [address] | | | | | [place] | | | | | [address] | | + + + + + Care Team Providers + +------+ + | Care Wire Steward Name | Role | Phone | + +------+ + | Gregory Drummond MD | PCP | | + +------+ + Encounter Details +--------+---------+ + + + | Date | Type | Department | Care Team | Description | +--------+---------+ + + + | 10/14/ | [facility] | [facility] | Charisse Santana | Right Cataract | | 2015 | | MED CTR OR INTRA OP | MD [address] | Extraction w/ IOL | | | | [address] | Tietan [place]ALD [place], | Implant | | | | [place], [place] | [place] [address] | | | | | [address] | [phone] | | | | | [phone] | | | +--------+---------+ + + + [...] hardy discharge of pt to the [facility] to see Dr. Drummond on sat's [...] 2018 | Visit | | , DO [address] [place] [address] | | | | | | [place], [...] [place] | | | | | | [address] | | | | | | | [...] [place] | | | | | | [address] | | | | | | | [...] + | [address] | [address] | [place] | [phone] | | [facility] | | [address] | | | - LABORATORY | | [...]
--- OUTSIDE RECORDS SUMMARY | ~2019-07-14 | XMS | Encounter Summary ---
Demographics + + + | Address | [address] | | | [place] [address] | + + + | Home Phone [...] + | Lula Kerr | ECON | [address] | | | | | [place] | | | | | [address] | | + + + + + Care Team Providers + +------+ + | Care Technology Strategist Name | Role | Phone | + +------+ + PCP | Unavailable | + +------+ + Encounter Details +--------+ + + + + | Date | Type | Department | Care Team | Description | +--------+ + + + + | 10/04/ | Hospital | [facility] | | Backache, | | 1999 | Encounter | CONVERSION [address] | | unspecified | | | | [address] | | | | | | [place] | | | | | | [address] | | | | | | [phone] | | | +--------+ + + + [...] | Visit | | DO Rolan [address] [place] [address] | | | | | | [place], [address] | | | | | | [place] | | | | | | [address] | | | | | | | | +--------+ + + + + | 09/25/ | Office | Cardiology | Sheldon Spence | | | 2019 | Visit | | MD [address] | | | | | | [place] | | | | | | [place] | | | | | | [address] | | | | | | | [...] [place] | | | | | | [address] | | | | | | | | +--------+ + + + + documented as of this encounter Visit Diagnoses + + | Diagnosis | + + | Backache, unspecified | + + documented in this encounter"
--- OUTSIDE RECORDS SUMMARY | ~2019-07-14 | XMS | Encounter Summary ---
Demographics + + + | Address | [address] | | | [place] [address] | + + + | Home Phone | | + + + | Preferred Language | Unknown | + + + | Marital Status | | + + + | Jain Affiliation | 1041 | + + + | Race | Unknown | + + + | Ethnic Group | Unknown | + + + Author + + + | Author | [facility] | | | and [place] | + + + | Organization | [facility] | | | and [place] | + + + | Address | Unknown | + + + | Phone | Unavailable | + + + Support + + + + + | Name | Relationship | Address | Phone | + + + + + | Lula Kerr | ECON | [address] | | | | | [place] | | | | | [address] | | + + + + + Care Team Providers + +------+ + | Care Spring Internship Name | Role | Phone | + [...] + + | 12/11/ | Emergency | [facility] | Vianca, | Gastrointestinal | | 2016 | | MED CTR EMERGENCY | Gomez Batres MD [address] | hemorrhage, | | | | CENTER [address] | [address] | unspecified | | | | [place] | [place] [address] | gastrointestinal | | | | [address] | [phone] | hemorrhage type | | | | [phone] | | (Primary Dx) | +--------+ + [...] find out what your INR is. Call [phone]. I would like to esequiel p you [...] | Visit | | DO Rolan [address] | | | | | | [address] | | | | | | [place] | | | | | | [address] | | | | | | | | +--------+ + + + + | 09/25/ | Office | Cardiology | Sheldon Spence | | | 2019 | Visit | | MD [address] | | | | | | [place] | | | | | | [place] | | | | | | [address] | | | | | | | [...] [place] | | | | | | [address] | | | | | | | [...] report was sent by | | | [facility] on 12/12/2015 at 10:03 PM with no [...] | | preliminary report was sent by [facility] [employer] on 12/12/2015 at 10:03 PM withno | [...] | |A preliminary report was sent by [facility] [employer] on 12/12/2015 at 10:03 PM with | [...] + + | Card Lot # | [id number] | | | | + + [...] scanner | [facility] | | report from [facility] for results. | [facility] | | | [facility] | | | - LABORATORY | + + + + + + + + | Performing | Address | City/State/Zipcode | Phone Number | | Organization | | | | + + + + + | [facility] | [address] | [place], [place] | [phone] | | [facility] | | [address] | | | - LABORATORY | | [...] + | [facility] | [address] | [place] | [phone] | | [facility] | | [address] | | | - LABORATORY | | [...] | [employer] | | | [facility] | | | | | | MEDICAL [...] [address] | [place] | [phone] | | [facility] | | [address] | | | - LABORATORY | | [...] [address] | [place] | [phone] | | [facility] | | [address] | | | - LABORATORY | | [...] 1.73 (H) | 0.60 - 1.30 | [facility] | | | | | mg/dL | [facility] | | | | | | MEDICAL | | | | | | CENTER - | | | | | | LABORATORY | | + + + + + + | eGFR if not | 39 (L)Comment: | >=60 | [facility] | | | | GLOMERULAR FILTRATION | mL/min/1.73m2 | Anastacia [facility] | | | NEPALESE | RATE,ESTIMATED | | MEDICAL | | | | mL/min/1.19h2Zatc than | | CENTER - | | [...] [address] | [place] | [phone] | | [facility] | | [address] | | | - LABORATORY | | [...] + | [facility]. | [address] | [place] | [phone] | | [facility] | | [address] | | | - LABORATORY | | | | + + + + + documented in this encounter Visit Diagnoses + + | Diagnosis | + + | Gastrointestinal hemorrhage, unspecified gastrointestinal hemorrhage type - Primary | + + documented in this encounter
--- OUTSIDE RECORDS SUMMARY | ~2019-07-14 | XMS | Encounter Summary ---
Demographics + + + | Address | [address] | | | [place] [address] | + + + | Home Phone | | + + + | Preferred Language | Unknown | + + + | Marital Status | | + + + | Jain Affiliation | 1041 | + + + | Race | Unknown | + + + | Ethnic Group | Unknown | + + + Author + + + | Author | [facility] | | | and [place] | + + + | Organization | [facility] | | | and [place] | + + + | Address | Unknown | + + + | Phone | Unavailable | + + + Support + + + + + | Name | Relationship | Address | Phone | + + + + + | Lula Kerr | ECON | [address] | | | | | [place] | | | | | [address] | | + + + + + Care Team Providers + +------+ + | Care Gear Repair Supervisor Name | Role | Phone | [...] | | [address] | [place], [address] | | | | | [place], [place] | [place], [place] | | | | | [address] | [address] | | | | | [phone] | | | +--------+ + + + [...] | Visit | | DO Rolan [address] [place] [address] | | | | | | [address] | | | | | | [place] | | | | | | [id number] | | | | | | | | +--------+ + + + + | 09/25/ | Office | Cardiology | Sheldon Spence | | | 2019 | Visit | | MD [address] | | | | | | [place] | | | | | | [place] | | | | | | [address] | | | | | | | | +--------+ + + + + | 09/25/ | Procedure | Cardiology | | | | 2019 | visit | | | | +--------+ + + + + | 11/28/ | Office | Cardiology | Luo DO Natalie | | | 2019 | Visit | | [address] | | | | | | [place] | | | | | | [address] | | | | | | | [...]
--- OUTSIDE RECORDS SUMMARY | ~2019-07-14 | XMS | Encounter Summary ---
Demographics + + + | Address | [address] | | | [place] [address] | + + + | Home Phone [...] + | Lula Kerr | ECON | [address] | | | | | [place] | | | | | [address] | | + + + + + Care Team Providers + +------+ + | Care Archaeology Professor Name | Role | Phone | + [...] | | | | [place] | [address] | [place] [address] | | | | | | Phone: | Phone: | | | | | | [phone] | [phone] | | | | | | Fax: | Fax: | | | | | | [phone] | [phone] | + +--------+ + + + + Encounter Details +--------+---------+ + + + | Date | Type | Department | Care Team | Description | +--------+---------+ + + + | 10/04/ | Office | [facility] | Amilcar Hampton | ESRD (end stage | | 2019 | Visit | SURGERY [address] | MD Omar, FACS [address] | renal disease) ([facility]) | | | | [place], [place] | [address] [facility] | (Primary Dx); | | | | [address] | [place] [address] | Post-operative state | | | | [phone] | [phone] | | | | | | | [...] AVF; Surgeon: Amilcar Hampton MD, FACS; Location: [facility] MAIN OR CATARACT REMOVAL WITH IMPLANT [...] defibrilator ; Surgeon: Meredith forbes MD; Location: [facility] MEDICAL PROCEDURE UNIT pacemaker medtronic SHUNT [...] PATIENT NAME : David Kerr JrAnastacia EQUIPMENT: [employer] with 10-5 mHertz probe. INDICATIONS: S/P RIGHT [...] | Visit | | M, DO [address] | | | | | | [place], [address] | | | | | [...] [place] | | | | | | [address] | | | | | | | [...] [place] | | | | | | [address] | | | | | | | | +--------+ + + + + documented as of this encounter Visit Diagnoses + + | Diagnosis | + + | ESRD (end stage renal disease) (HCC) - Primary End stage renal disease | + + | Post-operative state Other postprocedural status | + + documented in this encounter
--- OUTSIDE RECORDS SUMMARY | ~2019-07-14 | XMS | Encounter Summary ---
Demographics + + + | Address | [address] | | | [place] [address] | + + + | Home Phone [...] + | Lula Kerr | ECON | [address] | | | | | [place] | | | | | [address] | | + + + + + Care Team Providers + +------+ + | Care Split Leather Mosser Name | Role | Phone | + [...] MD [address]an [address] | [address] | | | | | congestive | [address] | [place], | | | | | heart | [place], | [place] | | | | | failure | [place] | [address] | | | | | ([facility]) | [address] | Phone: | | | | | Procedures | Phone: | [phone] | | | | | ECHO | [phone] | Fax: | | | | | Complete | Fax: | [phone] | | | | | | [phone] | | +--------+--------+ + + + + [...] MD [address]an [address] | [address] | | | | | congestive | [address] | [place], | | | | | heart | [place], | [place] | | | | | failure | [place] | [address] | | | | | (HCC) | [address] | Phone: | | | | | Procedures | Phone: | [phone] | | | | | ECHO | [phone] | Fax: | | | | | Complete | Fax: | [phone] | | | | | | [phone] | | +--------+--------+ + + + + Encounter Details +--------+ + + + + | Date | Type | Department | Care Team | Description | +--------+ + + + + | 06/16/ | Hospital | [facility] | Gregory Drummond MD | Other congestive | | 2018 | Encounter | MED CTR ECHO [address] | [address] [facility] | heart failure (HCC) | | | | [address] | [place] | | | | | [place] [address] | [address] | | | | | [phone] | [phone] | | | | | | | [...] 2019 | Visit | | Rolan, [address] | | | | | | [address], [address] | | | | | | [place] | | | | | | [address] | | | | | | | | +--------+ + + + + | 09/25/ | Office | Cardiology | Sheldon Spence | | | 2019 | Visit | | [address] | | | | | | [address] | | | | | | [place] | | | | | | [address] | | | | | | | [...] [place] | | | | | | [address] | | | | | | | [...] | | | | | | [address] [place] | | | | | + +--------+ [...]
[2019-07-14] MEDS ORDERED: ALLOPURINOL300 MG PO (12:08)
[2019-07-14] MEDS ORDERED: ASPIR-LOW81 MG PO (12:08)
[2019-07-14] MEDS ORDERED: OMEPRAZOLE40 MG PO (12:08)
[2019-07-14] MEDS ORDERED: LASIX80 MG PO (12:09)
[2019-07-14] MEDS ORDERED: AMARYL2 MG PO (12:09)
[2019-07-14] MEDS ORDERED: NEPHRO-VITE RX1 EACH PO (12:09)
[2019-07-14] MEDS ORDERED: RENVELA800 MG PO (12:10)
[2019-07-14] MEDS ORDERED: LIPITOR40 MG PO (12:10)
--- NOTE | 2019-07-15 11:09 | EKG ---
[facility] [address] [facility] [place], [place] [address] Signed Ventricular-paced rhythm Biventricular pacemaker detected Abnormal ECG No previous ECGs available Confirmed by LOLLY SY DO ([id number]) on 07/15/2019 11:08:51 AM Electronically Signed By: LOLLY SY DO 07/15/19 1109 PATIENT NAME: TABITHABEAR JR Electrocardiogram DATE OF : 47 PHYSICIAN: LOLLY SY DO REPORT #: [id number] REPORT IS CONFIDENTIAL AND NOT TO BE RELEASED WITHOUT AUTHORIZATION
== END 2019-07-14 17:50 | disposition short-term general hospital (02) ==
LOC: ED 10:53
DX: K72.90 Hepatic failure, unspecified without coma (principal); N18.4 Chronic kidney disease, stage 4 (severe); R06.89 Other abnormalities of breathing; Z88.5 Allergy status to narcotic agent; Z79.899 Other long term (current) drug therapy; Z79.82 Long term (current) use of aspirin
CPT/HCPCS: 36600; 70450; 71045; 80053; 82140; 82803; 83605; 83880; 85025; 93005; 93010; 94660; 99285-25